=== PATIENT | female | born 1950 | race Caucasian/White ===

== ENCOUNTER 2021-11-01 20:43 | Outpatient (CLI) | payer MEDICARE, BC, SELFPAY | END 2021-11-01 20:44 | disposition home or self-care (01) | LOC: AMB 11-13 11:47 | PROVIDERS: PCP Family Medicine; Visit Provider Family Medicine | DX: R06.09 Other forms of dyspnea (principal); R42 Dizziness and giddiness | CPT/HCPCS: A0425; A0427 ==

== ENCOUNTER 2021-11-01 21:17 | Inpatient (IN) | payer MEDICARE, BC, SELFPAY ==
[2021-11-01] VITALS (11 sets, daily range): BP systolic 118–177; BP diastolic 67–111; PULSE 81–112; RESP 18–33; TEMP 36.9; O2SAT 95–98
[2021-11-01] MEDS: LORazepam 2 MG/ML inj 1 MG IV (21:32)
[2021-11-01] MEDS: NITROGLYCERIN 0.4 MG TAB.SUBL SUBLINGUAL (21:32)
--- NOTE | 2021-11-01 21:40 | CRLHL7_ITS ---
For Patients: As a result of the Century Cures Act, medical imaging exams and procedure reports are released immediately into your electronic medical record. You may view this report before your referring provider. If you have questions, please contact your health care provider. Indication: Shortness of breath Technique: Chest 1 view Comparison: July 01, 2013 Findings/Impression: Stable cardiac size. Low lung volumes. Diffuse perihilar opacities may reflect infection or edema. No large effusion. No pneumothorax. No acute osseous abnormality. Dictated by Myah Sinha MD @ 11/01/2021 10:52:29 PM (Electronically Signed)
--- NOTE | 2021-11-01 21:45 | ED.NURSE ---
Pt arrived via EMS talking on 6L nc, pt moved to ER bed using nebulizer, 3 minutes later pt started to cough and have panic attack stating she cant breathe with diaphoresis, oximetry decreased to low 80s, MD Carr to bedside, bipap started at 100% fio2, ekg completed, telemetry monitor applied, MD Carr verbal for nitro 0.4mg PO. Pt stating improvement in breathing post 5 minutes on bipap with oximetry increasing to upper 90s.
--- NOTE | 2021-11-01 21:45 | ED.GENADULT ---
HPI - General Adult General Chief complaint: Shortness of Breath/Dyspnea Stated complaint: RESPIRATORY DISTRESS Time Seen by Provider: 11/01/21 21:38 History of Present Illness HPI narrative: This 71-year-old female came in by ambulance because of shortness of breath. She received half of a DuoNeb before arriving here. She was showing oximetry at 92% on room air upon arrival. When shifting from the ambulance gurney to the bed in the room she became suddenly very short of breath and anxious. Her oximetry dip down into the mid 80s. She was very tight in her breathing. Related Data Home Medications Medication Instructions Recorded Confirmed aspirin 81 mg capsule 81 mg PO DAILY 11/01/21 11/01/21 cholecalciferol (vitamin D3) 50 50 mcg PO DAILY 11/01/21 11/01/21 mcg (2,000 unit) capsule ezetimibe 10 mg tablet mg 11/01/21 furosemide 20 mg tablet mg 11/01/21 nitroglycerin 0.4 mg sublingual mg 11/01/21 tablet ramipril 5 mg capsule mg 11/01/21 rosuvastatin 40 mg tablet mg 11/01/21 sertraline 100 mg tablet mg 11/01/21 verapamil 240 mg tablet,extended mg PO 11/01/21 release Allergies Allergy/AdvReac Type Severity Reaction Status Date / Time Sulfa (Sulfonamide Allergy Verified 11/01/21 22:18 Antibiotics) Review of Systems Status of ROS: Reports: 10 or more systems reviewed and unremarkable except as noted in History and below Narrative: Constitutional: No fevers, no weight gain or loss. Eyes: No discharge. No vision changes. HENT: No congestion, no sore throat, no ear pain. Cardiovascular: No palpitations. Respiratory: Severe shortness of breath. Gastrointestinal: No abdominal pain, no vomiting, no diarrhea. Genitourinary: No dysuria, no hematuria. Musculoskeletal: Normal range of motion. Skin: No rashes, no pruritis. Neurological: No dizziness, weakness, sensory change, speech change. Endo/Heme/Allergies: No bruising or bleeding. No polydipsia. Pysch: no suicidality, no anxiety, no insomnia. All other systems reviewed and are negative. Exam Narrative: Exam Narrative: Constitutional: Well-developed, well-nourished, no acute distress. HEENT: Normocephalic, atraumatic. Neck: Normal range of motion. Nontender. Supple. Heart: Regular. No murmurs. Tachycardia, rate around 120 beats per minute. Intact distal pulses. Lungs: Very little air movement on initial exam with use of accessory muscles. She was very anxious with her dyspnea. Abdomen: Normal bowel sounds. Nontender. No rebound tenderness. Genitalia: Deferred. Back: No midline tenderness. Normal range of motion. Extremities: Normal range of motion. No injury. Bilateral pedal edema. Skin: Intact. No rash. Warm. No erythema or pallor. Neurologic: No altered sensation. No weakness. Psychiatric: Very anxious with regard to her breathing. Nursing notes and vitals signs are reviewed. Const: Vital Signs, click to edit/add: Vital Signs - 24 hr 11/01/21 21:43 11/01/21 21:30 Temperature 98.5 F Pulse Rate [Left P ulse Oximeter] 111 H 112 H Respiratory Rate 26 H Blood Pressure [Le ft Upper Arm] 138/92 H 177/111 H Pulse Oximetry 96 96 Oxygen Delivery Me thod BiPAP BiPAP Fraction of Inspir ed Oxygen 80 Course Vital Signs Vital signs: Initial Vital Signs Pulse Rate 112 H 11/01/21 21:30 Blood Pressure 177/111 H 11/01/21 21:30 Blood Pressure Mean 133 11/01/21 21:30 Pulse Oximetry 96 11/01/21 21:30 Oxygen Delivery Method 11/01/21 21:30 Vital Signs Pulse Rate 112 H 11/01/21 21:30 Blood Pressure 177/111 H 11/01/21 21:30 Pulse Oximetry 96 11/01/21 21:30 Oxygen Delivery Method 11/01/21 21:30 Temperature 98.5 F 11/01/21 21:43 Pulse Rate 111 H 11/01/21 21:43 Respiratory Rate 26 H 11/01/21 21:43 Blood Pressure 138/92 H 11/01/21 21:43 Pulse Oximetry 96 11/01/21 21:43 Oxygen Delivery Method 11/01/21 21:43 Fraction of Inspired Oxygen 80 11/01/21 21:43 Medical Decision Making MDM Narrative Medical decision making narrative: This patient arrives by ambulance and is soon as she was placed in the room she became very short of breath. The patient became diaphoretic but did not have cyanosis. BiPAP was brought in rather quickly and applied. She also had an IV in place from her ambulance trip here. She received 1 mg of Ativan. BiPAP was set at 100% oxygen and before long her heart rate came down and her oximetry improved to 98%. She is breathing much better. Her initial blood pressure was elevated at around 180. She did receive a sublingual nitroglycerin 0.4 mg and repeat blood pressure had a systolic value around 140. Her symptoms appeared to be sign of flash pulmonary edema. She does show such findings on chest x-ray. Lab results returned with normal troponin. Her BNP is elevated to around 1100 and her D-dimer is elevated to 2.2. A CT scan of the chest with contrast is ordered. Her BiPAP oxygen was decreased from 100% down to 80% and then 50%. Finally it was at 30% before removing it in order to have the CT scan. I did discuss these matters with the hospitalist radio communications superintendent who will arrange for her admission to the hospital. Results of the CT scan are pending at this time. Lab Data Labs: Lab Results 11/01/21 11/01/21 11/01/21 Range/Units 21:40 21:40 21:40 WBC 8.69 (4.50-11.00) K/uL RBC 5.00 (4.00-5.20) m/uL Hgb 13.8 (12.0-16.0) gm/dL Hct 43.2 (33.0-51.0) % MCV 86 (80-100) fL MCH 28 (26-34) pg MCHC 32 (32-36) gm/dL RDW Coeff of Rene 13.7 (11.5-15.5) % Plt Count 163 (140-440) K/uL Neut % (Auto) 59.3 (42.0-72.0) % Lymph % (Auto) 34.3 (20-44) % [place] % (Auto) 5.1 (0.0-11.0) % Eos % (Auto) 1.0 (0.0-7.0) % Baso % (Auto) 0.2 (0.0-3.0) % Neut # (Auto) 5.15 (1.7-7.0) K/uL Lymph # (Auto) 2.98 H (0.90-2.90) K/uL [place] # (Auto) 0.40 (0.00-0.90) K/UL Eos # (Auto) 0.09 (0.00-0.50) K/uL Baso # (Auto) 0.02 (0.00-0.30) K/uL Abs Immat Gran (auto) 0.01 (0.00-0.30) K/uL D-Dimer Quant (PE/DVT) 2.21 H (0.00-0.50) ug/ml VBG pH (7.32-7.43) VBG pCO2 (40-50) mmHG VBG pO2 (25-47) mmHG VBG HCO3 (21-28) mmol/L Sodium 136 (135-149) mmol/L Potassium 3.9 (3.6-5.1) mmol/L Chloride 102 (96-114) mmol/L Carbon Dioxide 26 (20-32) mmol/L BUN 18 (7-30) mg/dL Creatinine 0.7 (0.5-1.5) mg/dL Estimated GFR 91 ml/min Glucose 148 H (60-115) mg/dL Calcium 9.0 (8.4-10.6) mg/dL NT-Pro-B Natriuret Pep 1140 H (0-125) PG/mL POC Troponin I (0.01-0.04) ng/ml 11/01/21 11/01/21 Range/Units 21:40 21:40 WBC (4.50-11.00) K/uL RBC (4.00-5.20) m/uL Hgb (12.0-16.0) gm/dL Hct (33.0-51.0) % MCV (80-100) fL MCH (26-34) pg MCHC (32-36) gm/dL RDW Coeff of Rene (11.5-15.5) % Plt Count (140-440) K/uL Neut % (Auto) (42.0-72.0) % Lymph % (Auto) (20-44) % [place] % (Auto) (0.0-11.0) % Eos % (Auto) (0.0-7.0) % Baso % (Auto) (0.0-3.0) % Neut # (Auto) (1.7-7.0) K/uL Lymph # (Auto) (0.90-2.90) K/uL [place] # (Auto) (0.00-0.90) K/UL Eos # (Auto) (0.00-0.50) K/uL Baso # (Auto) (0.00-0.30) K/uL Abs Immat Gran (auto) (0.00-0.30) K/uL D-Dimer Quant (PE/DVT) (0.00-0.50) ug/ml VBG pH 7.332 (7.32-7.43) VBG pCO2 52 H (40-50) mmHG VBG pO2 60.9 H (25-47) mmHG VBG HCO3 27 (21-28) mmol/L Sodium (135-149) mmol/L Potassium (3.6-5.1) mmol/L Chloride (96-114) mmol/L Carbon Dioxide (20-32) mmol/L BUN (7-30) mg/dL Creatinine (0.5-1.5) mg/dL Estimated GFR ml/min Glucose (60-115) mg/dL Calcium (8.4-10.6) mg/dL NT-Pro-B Natriuret Pep (0-125) PG/mL POC Troponin I 0.02 (0.01-0.04) ng/ml Imaging Data Chest x-ray: Radiologist's impression: Stable cardiac size. Low lung volumes. Diffuse perihilar opacities may reflect infection or edema. No large effusion. No pneumothorax. No acute osseous abnormality. ECG Data Attestation: I personally reviewed and interpreted this ECG as follows: Interpretation: Sinus tachycardia, rate 105 beats per minute. There are no specific ST or T-wave abnormalities. Critical Care Time Critical Care Time Critical Care Time: Yes Attestation: The patient required my highest level preparedness to intervene emergently and I personally spent this critical care time directly and personally managing the patient. This critical care time included: Obtaining a history; Examining the patient; Pulse oximetry; Ordering and reviewing of studies; Arranging urgent treatment with development of a management plan; Evaluation of patients response to treatment; Frequent reassessment discussions with other providers. This critical care time was performed to assess and manage the high probability of imminent life-threatening deterioration that could result in multiorgan failure. It was exclusive of separate billable procedures and treating other patients and teaching time. Total Critical Care Time in Minutes: 30 Discharge Plan Discharge Clinical Impression: Flash pulmonary edema Patient Disposition: Admitted As Inpatient Condition: Improved Prescriptions: No Action sertraline 100 mg tablet nitroglycerin 0.4 mg tablet, sublingual verapamil 240 mg tablet extended release PO furosemide 20 mg tablet ezetimibe 10 mg tablet rosuvastatin 40 mg tablet aspirin 81 mg capsule 81 mg PO DAILY cholecalciferol (vitamin D3) 50 mcg (2,000 unit) capsule 50 mcg PO DAILY ramipril 5 mg capsule Follow Up/Referrals: Lorin Parson MD [Primary Care Provider] -
[2021-11-01 21:47] LABS: HCO3 VBG 27 mmol/L (21-28); PCO2 VBG 52 mmHG (40-50); PO2 VBG 60.9 mmHG (25-47); pH VBG 7.332 (7.32-7.43)
[2021-11-01 21:51] LABS: Basophils Absolute Auto 0.02 K/uL (0.00-0.30); Basophils Percent Auto 0.2 % (0.0-3.0); Eosinophils Absolute Auto 0.09 K/uL (0.00-0.50); Hematocrit 43.2 % (33.0-51.0); Hemoglobin* 13.8 gm/dL (12.0-16.0); Immature Granulocytes Abs Auto 0.01 K/uL (0.00-0.30); Lymphocytes Absolute Auto 2.98 K/uL (0.90-2.90); Lymphocytes Percent Auto 34.3 % (20-44); Mean Corpuscular HGB Conc 32 gm/dL (32-36); Mean Corpuscular Hemoglobin 28 pg (26-34); Mean Corpuscular Volume 86 fL (80-100); Monocytes Percent Auto 5.1 % (0.0-11.0); Neutrophils Absolute Auto 5.15 K/uL (1.7-7.0); Neutrophils Percent Auto 59.3 % (42.0-72.0); Platelet Count* 163 K/uL (140-440); RDW Coefficient of Variation % 13.7 % (11.5-15.5); White Blood Count* 8.69 K/uL (4.50-11.00)
[2021-11-01 22:17] LABS: D Dimer Quantitative* 2.21 ug/ml (0.00-0.50)
[2021-11-01 22:18] LABS: Troponin, Point-of-Care* 0.02 ng/ml (0.01-0.04)
[2021-11-01 22:20] LABS: Slide Review Reflex No
[2021-11-01 22:21] LABS: Chloride* 102 mmol/L (96-114); Sodium* 136 mmol/L (135-149)
[2021-11-01 22:22] LABS: Potassium* 3.9 mmol/L (3.6-5.1)
[2021-11-01 22:24] LABS: Creatinine* 0.7 mg/dL (0.5-1.5); Estimated Glomerular Filt Rate 91 ml/min
[2021-11-01 22:25] LABS: Blood Urea Nitrogen* 18 mg/dL (7-30); Carbon Dioxide* 26 mmol/L (20-32); Glucose* 148 mg/dL (60-115)
--- NOTE | 2021-11-01 22:26 | CRLHL7_ITS ---
For Patients: As a result of the 21st Century Cures Act, medical imaging exams and procedure reports are released immediately into your electronic medical record. You may view this report before your referring provider. If you have questions, please contact your health care provider. INDICATION: Shortness of breath. Elevated D-dimer. TECHNIQUE: CT chest PE was acquired with 99 cc Isovue 370 IV contrast. COMPARISON: None. FINDINGS: Heart and vasculature: No cardiomegaly, no pericardial effusion. Atherosclerotic coronary artery calcifications. Within limitations of motion artifact, no definite evidence of acute pulmonary embolus. Evaluation of bilateral lower lobe subsegmental pulmonary arteries is significantly limited. Lungs and pleura: Diffuse peribronchial ground-glass opacities in the upper lobes, superimposed upon septal thickening. There is also significant septal thickening in the bilateral lower lobes. There are small bilateral pleural effusions, right greater left, with associated compressive atelectasis. Patchy subpleural ground-glass opacities in the left lower lobe. Thyroid and lower neck: Subcentimeter thyroid nodules are noted. Mediastinum/seb: Multiple mildly enlarged mediastinal lymph nodes, favored to be reactive. Chest wall: No axillary lymphadenopathy. Skin thickening overlying the right breast. Upper abdomen: No acute abnormality. Bones: Multilevel degenerative changes of the spine. No suspicious/aggressive focal osseous lesion. IMPRESSION: 1. Within limitations of motion artifact, no definite evidence of acute pulmonary embolus. 2. Diffuse peribronchial ground-glass opacities superimposed upon septal thickening. Findings are favored to reflect pulmonary edema. 3. Patchy subpleural ground-glass opacities in the left lower lobe, may reflect superimposed infectious process. 4. Small bilateral pleural effusions, right greater than left, with associated compressive atelectasis. 5. Multiple mildly enlarged mediastinal lymph nodes, likely reactive. 6. Skin thickening overlying the right breast is nonspecific, may reflect cellulitis versus component of inflammatory neoplasm. Follow-up mammogram is recommended. Please note that all CT scans at this facility use dose modulation, iterative reconstruction, and/or weight-based dosing when appropriate to reduce radiation dose to as low as reasonably achievable. Dictated by Jeremias Dobson MD @ 11/02/2021 12:26:22 AM (Electronically Signed)
[2021-11-01 22:34] LABS: NT Pro B Type NatriureticPept* 1140 PG/mL (0-125)
--- NOTE | 2021-11-01 22:45 | ED.NURSE ---
bipap removed, pt placed on 10L oxymask maintaining 96% oximetry - pt transported to CT and back stating she feels much better and maintaining oxygenation.
[2021-11-01 23:13] LABS: SARS PCR* Negative SARS-CoV-2 (Negative)
--- NOTE | 2021-11-01 23:29 | W.PC.EDHO ---
Primary Language: Preferred Language: Orientation Status: [x] Alert & Oriented [] Slight Confusion [] Known Dx Dementia Transfers By: [] Assist of 1 [x] Assist of 2 [] Lift Active Medications Discontinued Medications Generic Name Dose Route Start Last Admin Trade Name Ita PRN Reason Stop Dose Admin Lorazepam 1 mg 11/01/21 21:40 11/01/21 21:32 Lorazepam 2 Mg/Ml Inj IV 11/01/21 21:41 1 mg ONCE ONE Administration Nitroglycerin 0.4 mg 11/01/21 21:40 11/01/21 21:32 Nitroglycerin 0.4 Mg Tab.Subl SUBLINGUAL 11/01/21 21:41 0.4 mg ONCE ONE Administration Description of Symptoms ED Triage Present Problem this evening pt had vertigo, went to lay down and Description got nauseated and trouble breathing, called ems, pt got duoned on ems route. ED Triage Date of Onset of 11/01/21 Symptoms Female History Patient Oxygen Administration Pulse Oximetry 96 Pulse Oximetry 96 Oxygen Delivery Method BiPAP Oxygen Delivery Method BiPAP Fraction of Inspired Oxygen 80
--- NOTE | 2021-11-01 23:30 | P.IMHP_ITS ---
Hospitalist- H&P: HPI History of Present Illness Time Seen by Provider: 23:30 Date Seen: 11/02/21 Chief complaint: RESPIRATORY DISTRESS Narrative: Ivonne Collins is a 71 year old female who presented to the ED by ambulance for acute dyspnea, accompanied by productive cough. Patient notes that she started having mild URI symptoms about 3 days ago with feeling ?congested?, intermittent wheezing, and coughing. Today, her symptoms included mild vertigo, followed by fairly severe coughing and dyspnea. She was able to cough up some phlegm without relief; no hemoptysis. She tried her albuterol inhaler at home, which was not helpful. called the ambulance given patient's shortness of breath. Upon arrival, patient was dyspneic and hypoxic. ER Course and Findings: - immediately placed of on BiPAP upon arrival, given a Duoneb and Nitro with relief. Transitioned quickly to OxyMask from BiPap. - CXR performed, revealing low lung volumes with diffuse perihilar opacities - D-dimer elvated, CO2 mildly elevated, normal pH - chest CT with contrast revealed no PE, GGO that likely represent pulmonary edema, GGO in LLL that could reflect superimposed infectious process, small bilateral pleural effusions When I see patient, she is markedly improved. She is tolerating OxyMask well. Past medical history significant for: - CAD: [place] in the year 1999, stents placed . 10/2020 had an abnormal dobutamine stress echo; at that time underwent PCTA with RCA revascularization, completed cardiac rehab earlier this year. Follows with Dr. Mayen of [facility] - breast cancer, right, 2013: Treated with lumpectomy, radiation, course of le jose - ZACHARY on CPAP - chronic intermittent dyspnea with occasional wheezing: normal PFTs with [facility] in the past - osteoarthritis of knee Family history of hypertension, coronary artery disease, diabetes, breast cancer. Had COVID in fall of 2020, has received 4 vaccines as well. Quit smoking in 1979. ETOH use socially (1-2 drinks a few nights/week). No history of withdrawal. 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 She has two adult sons, neither lives locally. Deisi would be medical decision maker if needed. Review of Systems Status of ROS: Reports: 10 or more systems reviewed and unremarkable except as noted in History and below Narrative: Weight has been stable. No skin concerns. No GERD, no concerns. No headache. PFSH [facility], [facility] Medical History (Updated 11/02/21 @ 00:15 by Olivia Joseph MD) Breast cancer Chronic diastolic heart failure Depression Essential hypertension Hyperlipidemia Ischemic heart disease, chronic Mitral regurgitation Mitral stenosis ZACHARY on CPAP Osteoarthritis Surgical History (Updated 11/02/21 @ 00:15 by Olivia Joseph MD) History of lumpectomy of right breast Stented coronary artery Meds Home Medications and Allergies Home Medications Medication Instructions Recorded Confirmed Type aspirin 81 mg capsule 81 mg PO DAILY 11/01/21 11/01/21 History cholecalciferol (vitamin D3) 50 50 mcg PO DAILY 11/01/21 11/01/21 History mcg (2,000 unit) capsule ezetimibe 10 mg tablet 10 mg PO HS 11/01/21 11/01/21 History furosemide 20 mg tablet 20 mg PO DAILY 11/01/21 11/01/21 History nitroglycerin 0.4 mg sublingual 0.4 mg sublingual Q5M PRN 11/01/21 11/01/21 History tablet ramipril 5 mg capsule 10 mg PO DAILY 11/01/21 11/01/21 History rosuvastatin 40 mg tablet 40 mg PO HS 11/01/21 11/01/21 History sertraline 100 mg tablet 100 mg PO HS 11/01/21 11/01/21 History verapamil 240 mg tablet,extended 240 mg PO DAILY 11/01/21 11/01/21 History release Home Medication Comments: Confirmed above list with patient. She has not taken her nitro in years. She did complete a course of Plavix after stent placement in 2020. Allergies Allergy/AdvReac Type Severity Reaction Status Date / Time Sulfa (Sulfonamide Allergy Verified 11/01/21 22:18 Antibiotics) Exam Narrative: Exam Narrative: GEN: Alert and oriented, speaking in full sentences and resting comfortably in hospital bed, wearing OxyMask HEENT: Normal external ears, EOMIs bilaterally, no scleral icterus CV: RRR, heart sounds limited by background noise, no concerning murmurs appreciated on limited exam R: Wheezing throughout bilateral lung babin at apices. Fine crackles bilateral bases Ext: wwp, 1+ pitting edema in feet and ankles bilaterally Skin: No concerning skin lesions or rashes on exposed skin Neuro: Nonfocal, no resting tremor, gait not observed Psych: Appropriate Const: Vital Signs, click to edit/add: Vital Signs - 24 hr 11/01/21 21:43 11/01/21 21:30 Temperature 98.5 F Pulse Rate [Left P ulse Oximeter] 111 H 112 H Respiratory Rate 26 H Blood Pressure [Le ft Upper Arm] 138/92 H 177/111 H Pulse Oximetry 96 96 Oxygen Delivery Me thod BiPAP BiPAP Fraction of Inspir ed Oxygen 80 Hospitalist - H&P: Result Labs Labs: Short CBC 11/01/21 Range/Units 21:40 WBC 8.69 (4.50-11.00) K/uL Hgb 13.8 (12.0-16.0) gm/dL Hct 43.2 (33.0-51.0) % Plt Count 163 (140-440) K/uL BMP 11/01/21 21:40 Sodium 136 Potassium 3.9 Chloride 102 Carbon Dioxide 26 BUN 18 Creatinine 0.7 Glucose 148 H Calcium 9.0 Assessment and Plan Assessment and plan (1) Mitral regurgitation: Status: Acute (2) Elevated d-dimer: Status: Acute (3) Acute respiratory failure with hypoxia: Status: Acute (4) Dyspnea: Status: Acute Plan 71-year-old female with acute hypoxic respiratory failure: 1. Acute hypoxic respiratory failure: Likely multifactorial. Patient has known mitral valve disease and had acute on chronic dyspnea. Continue supplemental oxygen. - repeat echocardiogram to assess cardiac function. Continue home medications per outpatient [facility]. - given evidence of fluid overload, will treat with IV Lasix and assess fluid balance closely - wheezing: Ivonne has had normal PFTs per chart review, but giiven significant symptomatology will give 1 dose of Solu-Medrol overnight. Reassess tomorrow regarding the need to continue steroids - possible infectious process: empirically cover with ceftriaxone and azithromycin given degree of illness. 2. CAD: Follow troponins, initial troponin negative in the emergency room. Will monitor on telemetry. 3. Lovenox for prophylaxis. 4. Patient requests full code status. She has no desire to live on a machine long-term; is aware of this.
[2021-11-02] VITALS (12 sets, daily range): BP systolic 115–145; BP diastolic 55–88; PULSE 83–101; RESP 18–22; TEMP 36.4–37.1; O2SAT 92–98; BMI 41.3
--- NOTE | 2021-11-02 01:10 | ED.NURSE ---
report to ms RN, pt transferred to room 245, MS RN at bedside on arrival. Pt denied any further dyspnea post initial episode on arrival through ER visit.
[2021-11-02] MEDS: FUROSEMIDE 10 MG/ML inj 20 MG IVP ×2 (01:23→08:42)
[2021-11-02] MEDS: METHYLPREDNISOLONE SOD SUCC 62.5 MG/ML (125) 125 MG IVP (01:23)
[2021-11-02] MEDS: ENOXAPARIN 40 MG/0.4 ML INJ SUBCUT ×2 (01:23→21:20)
[2021-11-02] MEDS: cefTRIAXone 1 GM in 0.9 % SODIUM CHLORIDE Mini-bag 100 ML IVPB (01:23)
[2021-11-02] MEDS: AZITHROMYCIN 500 MG in 0.9 % SODIUM CHLORIDE 250 ml 250 ML 255 MG IVPB (01:46)
--- NOTE | 2021-11-02 05:43 | PC.NURSE ---
Shift 7p-7a: Received pt. from ER at 0030. Pt. AOx4, very pleasant, following commands, VSS on 5L oxymask. Pt. uses CPAP at night but did not bring with her tonight. Pt. received IV antibiotics, lasix, and solu-medrol due to possible infectious process in lungs shown on CT scan. Pt. ambulated independently to toilet, voiding well. Pt. experiencing intermittent non-productive cough.
[2021-11-02] MEDS: POTASSIUM BICARB 25 MEQ EFFERVESCENT TAB PO (08:40)
[2021-11-02] MEDS: ASPIRIN 81 MG TABLET EC PO (10:03)
--- NOTE | 2021-11-02 13:28 | PM.IMPN1 ---
Progress Note: A&P Assessment and plan (1) Heart failure with preserved ejection fraction: Problem details: Echocardiogram 11/02/2021 shows ejection fraction of 60 65% with normal wall thickness and normal global systolic function Status: Acute Assessment and Plan: Based on current echo heart failure appears to be primarily due to mitral regurgitation manifested as pulmonary edema. She has responded nicely to diuresis. Echo finding suggest a need for relatively urgent cardiology re-evaluation regarding medical versus surgical management of mitral valve disease. Will continue diuresis to see if she can be weaned off of oxygen and functional enough to follow as an outpatient. (2) Mitral regurgitation: Problem details: Echocardiogram 11/02/2021 shows severe mitral regurgitation Status: Acute (3) Mitral stenosis: Status: Acute Plan Continue in hospital for IV furosemide diuresis. If able to wean off oxygen and improved functional status urgent outpatient cardiology evaluation Time Spent With Patient Total time spent: Total time spent today is 40 minutes, 30 minutes in coordination of care and discussing with patient and other providers management of heart failure Subjective Date Seen: 11/02/21 Interval history: 71-year-old female seen in followup of hospitalization for respiratory distress. Patient has known heart failure secondary to mitral valve disease. This appears to be predominantly mitral valve regurgitation and mitral valve stenosis due to bulky mitral annular calcification. Notes from her rn house supervisor Dr. Mayen, [facility], from 05/09/2019 to indicate his concerned that her dyspnea is primarily due to mitral valve disease. She had a stress echocardiogram showing mean mitral diastolic gradient of 6 mmHg increasing to 18 mmHg at peak stress. Right ventricular systolic pressure was 48 mmHg increasing to 78 mmHg with stress. This was felt to be moderate mitral regurgitation. On admission she was administered furosemide for 20 mg IV and she reports overnight her breathing has gotten quite a bit better. She was initially on BiPAP and then on a OxyMask and now is on nasal cannula at 2.5 liters/minute maintaining her O2 sats in the low 90s. She reports no chest pain. She has had no fever. She has not had a cough until onset of her shortness of breath yesterday. She had a cough that produced some thick sputum but she was not able to get it out. Exam Narrative: Exam Narrative: She is alert and appears in no obvious distress. She is breathing comfortably on 2.5 L per nasal cannula. Respirations with a few basilar crackles. She has diminished breath sounds in her lung bases. No obvious consolidation. No wheezing. Cardiovascular : S1, S2, 1/6 systolic ejection murmur. No gallop or rub. Abdomen: Bowel sounds active. Abdomen is soft without tenderness. Extremities with 2+ edema bilaterally. Const: Vital Signs, click to edit/add: Vital Signs - 24 hr 11/01/21 21:43 11/01/21 21:30 11/02/21 00:54 Temperature 98.5 F Pulse Rate Pulse Rate [Left P ulse Oximeter] 111 H 112 H Pulse Rate [Right Radial] Respiratory Rate 26 H 22 Blood Pressure [Le ft Arm] Blood Pressure [Le ft Upper Arm] 138/92 H 177/111 H Pulse Oximetry 96 96 94 Oxygen Delivery Me thod BiPAP BiPAP OxyMask Oxygen Flow Rate 4 Fraction of Inspir ed Oxygen 80 11/02/21 01:03 11/02/21 01:03 11/01/21 21:40 Temperature 98.3 F Pulse Rate Pulse Rate [Left P ulse Oximeter] 112 H Pulse Rate [Right Radial] 84 Respiratory Rate 22 22 33 H Blood Pressure [Le ft Arm] 115/57 L Blood Pressure [Le ft Upper Arm] 130/88 Pulse Oximetry 94 94 96 Oxygen Delivery Me thod OxyMask OxyMask BiPAP Oxygen Flow Rate 4 5 Fraction of Inspir ed Oxygen 100 11/01/21 21:55 11/01/21 22:05 11/01/21 22:15 Temperature Pulse Rate Pulse Rate [Left P ulse Oximeter] 103 H 112 H 88 Pulse Rate [Right Radial] Respiratory Rate 27 H 24 22 Blood Pressure [Le ft Arm] Blood Pressure [Le ft Upper Arm] 129/78 131/81 126/73 Pulse Oximetry 96 96 95 Oxygen Delivery Me thod BiPAP BiPAP BiPAP Oxygen Flow Rate Fraction of Inspir ed Oxygen 80 70 50 11/01/21 22:25 11/01/21 22:40 11/01/21 23:20 Temperature Pulse Rate Pulse Rate [Left P ulse Oximeter] 83 84 81 Pulse Rate [Right Radial] Respiratory Rate 22 22 18 Blood Pressure [Le ft Arm] Blood Pressure [Le ft Upper Arm] 121/78 118/72 122/74 Pulse Oximetry 95 97 97 Oxygen Delivery Me thod BiPAP BiPAP OxyMask Oxygen Flow Rate 10 Fraction of Inspir ed Oxygen 50 50 11/01/21 23:50 11/02/21 00:20 11/01/21 21:20 Temperature Pulse Rate Pulse Rate [Left P ulse Oximeter] 83 84 Pulse Rate [Right Radial] Respiratory Rate 18 18 Blood Pressure [Le ft Arm] Blood Pressure [Le ft Upper Arm] 124/67 124/80 Pulse Oximetry 98 98 97 Oxygen Delivery Me thod Room Air Room Air BiPAP Oxygen Flow Rate 5 4 Fraction of Inspir ed Oxygen 100 11/02/21 00:44 11/02/21 02:47 11/02/21 07:30 Temperature 98.3 F 98.7 F Pulse Rate 83 Pulse Rate [Left P ulse Oximeter] Pulse Rate [Right Radial] 87 95 Respiratory Rate 20 18 Blood Pressure [Le ft Arm] 116/55 L 141/88 H Blood Pressure [Le ft Upper Arm] Pulse Oximetry 93 93 Oxygen Delivery Me thod OxyMask Room Air Oxygen Flow Rate 4 Fraction of Inspir ed Oxygen Documenting provider has reviewed patient's vital signs: yes Labs Labs: Laboratory Results - last 24 hr 11/01/21 11/01/21 11/01/21 21:40 21:40 21:40 WBC 8.69 RBC 5.00 Hgb 13.8 Hct 43.2 MCV 86 MCH 28 MCHC 32 RDW Coeff of Rene 13.7 Plt Count 163 Neut % (Auto) 59.3 Lymph % (Auto) 34.3 [place] % (Auto) 5.1 Eos % (Auto) 1.0 Baso % (Auto) 0.2 Neut # (Auto) 5.15 Lymph # (Auto) 2.98 H [place] # (Auto) 0.40 Eos # (Auto) 0.09 Baso # (Auto) 0.02 Abs Immat Gran (auto) 0.01 D-Dimer Quant (PE/DVT) 2.21 H VBG pH VBG pCO2 VBG pO2 VBG HCO3 Sodium 136 Potassium 3.9 Chloride 102 Carbon Dioxide 26 BUN 18 Creatinine 0.7 Estimated GFR 91 Glucose 148 H Calcium 9.0 NT-Pro-B Natriuret Pep 1140 H SARS-CoV-2 (PCR) POC Troponin I 11/01/21 11/01/21 11/01/21 21:40 21:40 21:41 WBC RBC Hgb Hct MCV MCH MCHC RDW Coeff of Rene Plt Count Neut % (Auto) Lymph % (Auto) [place] % (Auto) Eos % (Auto) Baso % (Auto) Neut # (Auto) Lymph # (Auto) [place] # (Auto) Eos # (Auto) Baso # (Auto) Abs Immat Gran (auto) D-Dimer Quant (PE/DVT) VBG pH 7.332 VBG pCO2 52 H VBG pO2 60.9 H VBG HCO3 27 Sodium Potassium Chloride Carbon Dioxide BUN Creatinine Estimated GFR Glucose Calcium NT-Pro-B Natriuret Pep SARS-CoV-2 (PCR) Negative SARS-CoV-2 POC Troponin I 0.02
[2021-11-02 14:02] LABS: Troponin I* 0.02 ng/mL (0.01-0.04)
[2021-11-02] MEDS: POTASSIUM BICARB 25 MEQ EFFERVESCENT TAB 50 MEQ PO (15:23)
[2021-11-02] MEDS: FUROSEMIDE 10 MG/ML inj 40 MG IVP (15:24)
--- NOTE | 2021-11-02 18:55 | PC.NURSE ---
shift note:vss stable. pt afeb. pt up indept in room w/o sob. pt weaned to 2.5L pnc O2 with sats maintaining @ 92-95%. LS with divya maradiaga. Pt denies c.p or pressure. tele monitor reading nsr.
[2021-11-02] MEDS: EZETIMIBE 10 MG TABLET PO (21:21)
[2021-11-02] MEDS: ROSUVASTATIN CALCIUM 10 MG TABLET 40 MG PO (21:21)
[2021-11-02] MEDS: VERAPAMIL HCL 240 MG ER TABLET PO (21:21)
[2021-11-02] MEDS: RAMIPRIL 2.5 MG 10 MG PO (21:22)
[2021-11-02] MEDS: SERTRALINE 100 MG TABLET PO (22:41)
[2021-11-03] VITALS (7 sets, daily range): BP systolic 104–131; BP diastolic 53–73; PULSE 69–74; RESP 18; TEMP 36.4–36.6; O2SAT 91–97
--- NOTE | 2021-11-03 05:00 | PC.NURSE ---
Shift note: The pt has been pleasant and cooperative. She has been denying chest pain; she reported slight short of breath with exertion. The pt has been on 2.5 L of oxygen via NC when she is a wake ; when she was sleeping she was using CPAP with 4L of oxygen bleeding into it with Spo2 in low 90s; due to air leak in the CPAP hose, SPo2 was decreased to upper 80s occasional for a brief moment. The pt has been independent in the room. She has been resting well without any distress. Tele has been showing NSR.
[2021-11-03 06:57] LABS: Basophils Absolute Auto 0.01 K/uL (0.00-0.30); Basophils Percent Auto 0.1 % (0.0-3.0); Hemoglobin* 12.4 gm/dL (12.0-16.0); Immature Granulocytes Abs Auto 0.02 K/uL (0.00-0.30); Lymphocytes Absolute Auto 2.09 K/uL (0.90-2.90); Lymphocytes Percent Auto 25.1 % (20-44); Mean Corpuscular HGB Conc 32 gm/dL (32-36); Mean Corpuscular Hemoglobin 27 pg (26-34); Mean Corpuscular Volume 86 fL (80-100); Monocytes Percent Auto 7.2 % (0.0-11.0); Neutrophils Absolute Auto 5.62 K/uL (1.7-7.0); Neutrophils Percent Auto 67.4 % (42.0-72.0); Platelet Count* 182 K/uL (140-440); RDW Coefficient of Variation % 13.9 % (11.5-15.5); Red Blood Count 4.55 m/uL (4.00-5.20); White Blood Count* 8.34 K/uL (4.50-11.00)
[2021-11-03 07:04] LABS: Slide Review Reflex No
[2021-11-03 07:08] LABS: Chloride* 98 mmol/L (96-114); Potassium* 3.5 mmol/L (3.6-5.1); Sodium* 135 mmol/L (135-149)
[2021-11-03 07:11] LABS: Carbon Dioxide* 31 mmol/L (20-32); Creatinine* 0.7 mg/dL (0.5-1.5); Est. Creatinine Clearance* 39.63; Estimated Glomerular Filt Rate 91 ml/min
[2021-11-03 07:12] LABS: Blood Urea Nitrogen* 20 mg/dL (7-30); Calcium* 8.8 mg/dL (8.4-10.6); Glucose* 127 mg/dL (60-115)
[2021-11-03] MEDS: ASPIRIN 81 MG TABLET EC PO (08:43)
[2021-11-03] MEDS: FUROSEMIDE 40 MG TABLET PO (08:43)
[2021-11-03] MEDS: POTASSIUM CHLORIDE 10 MEQ CAPSULE ER 20 MEQ PO ×2 (08:43→09:53)
--- NOTE | 2021-11-03 08:56 | CRLHL7_ITS ---
For Patients: As a result of the Century Cures Act, medical imaging exams and procedure reports are released immediately into your electronic medical record. You may view this report before your referring provider. If you have questions, please contact your health care provider. INDICATION: pulmonary edema, CHF HISTORY: Pulmonary edema, CHF. COMPARISON: Chest 1 view, 11/01/2021. CT pulmonary angiogram, 11/01/2021. TECHNIQUE: Chest, 2 views. FINDINGS: Cardiac enlargement. Pulmonary vasculature is more distinct on the current exam when compared with 11/01/2021. Perihilar infiltrates have significantly improved. There is blunting of the lateral/posterior costophrenic sulci, compatible with small residual pleural effusions. There is no pneumothorax. There is no deep sulcus sign. Central airway is normal. IMPRESSION: 1. Interval improvement in interstitial pulmonary edema. 2. Small, bilateral pleural effusions persist. Dictated by Rigo Goel MD @ 11/03/2021 10:14:28 AM Dictated by: Rigo Goel MD @ 11/03/2021 10:14:33 (Electronically Signed)
[2021-11-03 09:14] LABS: HCO3 VBG 31 mmol/L (21-28); PCO2 VBG 48 mmHG (40-50); PO2 VBG 33.8 mmHG (25-47); pH VBG 7.416 (7.32-7.43)
[2021-11-03 09:35] LABS: NT Pro B Type NatriureticPept* 1860 PG/mL (0-125)
--- NOTE | 2021-11-03 10:53 | RESP.RT ---
Notified by charge nurse that overnight they had an issue bleeding in O2 into the patient's CPAP machine. The machine has a heated hose and the night nurse taped an O2 bleed into where the heated hose connects. This is not correct and the nurse had also taped over the exhalation port on the CPAP mask. I reviewed with the charge nurse that this cannot happen, and will review with the charge nurse tonight how to bleed in the O2 at the mask, so that they can review with the nurse. The CPAP is now set up correctly with the O2 bleed in placed at the mask. It is now safe for the patient to continue to use.
--- NOTE | 2021-11-03 11:17 | PM.IMPN1 ---
Progress Note: A&P Assessment and plan (1) Heart failure with preserved ejection fraction: Problem details: Echocardiogram 11/02/2021 shows ejection fraction of 60 65% with normal wall thickness and normal global systolic function Status: Acute Assessment and Plan: Making great progress. We increased the dose of her potassium replacement given the increased dose of her Lasix and her decreased potassium today. Her BNP has increased however the chest x-ray evidence of interstitial edema has improved. I would like to give her 24 more hours CV regular off oxygen and returned home with no oxygen however this may not ultimately be possible. We can qualify her in the morning if needed. Ultimately she needs a valve replacement. (2) Mitral regurgitation: Problem details: Echocardiogram 11/02/2021 shows severe mitral regurgitation Status: Acute Assessment and Plan: We will help her align a appointment for next week with her matchbook assembler. (3) Acute respiratory failure with hypoxia: Status: Acute Assessment and Plan: Currently still on oxygen. 1 L. we will continue with current doses of oral furosemide. Pulmonary rehab maneuvers are important. Her weight is down. Her chest x-rays improved. Actual be able to go home tomorrow. Subjective Date Seen: 11/03/21 Interval history: Daily Progress Note - Hospital Medicine Day #: 2 CC: CHF exacerbation, severe mitral regurgitation, hypokalemia OVERNIGHT UPDATES FROM STAFF & MED, LAB, IMAGING UPDATES Definitely feels as if she is improving. She had some mild hypoxia overnight and was up to 4 L bleed in on her typical CPAP settings. Currently during rounds this morning she is on 1 L per nasal cannula. She has yet to ambulate outside her room. But she has been independent to the bathroom. She continues to have some chronic edema in her ankles. She does not report this is better or worse than usual. Blood pressure 120/73, heart rate 69, respirations 18, 1 L in the mid 90s for oxygen support. CBC is unremarkable D- dimer was elevated at 2.2 on admission Her blood gases stable, I am happy to see her CO2 has decreased into the normal range. Her pH is normal. Potassium is dropped a little to 3.5 from 3.9 yesterday. Normal renal function. Her BNP is up to 1800 from 1100. Chest x-ray shows interval improvement in her interstitial pulmonary edema, persistent small bilateral effusions. Weight is down 1 kg. Med review: From home we increased her Lasix to 40 mg q.a.m from 20 mg., I will be adding an increased dose of potassium as potassium was little low this morning Review of Systems: See subjective Cardiac: No new chest pain/pressure/palpitations. Respiratory: Dyspnea improving GI: No abdominal bloating Objective: Alert. Able to carry on a conversation without becoming dyspneic. Vitals: see above Lungs: Clear. No significant crackles or wheezes. Cardiac: S1S2. No significant harsh murmurs. I was actually surprise knowing her degree of mitral regurg. Extremities, 1 to 2+ edema. Patient reports this is not new. Disposition/Potential discharge - Likely to return to previous living situation. Total time is 35 minutes with greater than 50% spent in counseling and coordination of care. Exam Const: Vital Signs, click to edit/add: Vital Signs - 24 hr 11/02/21 15:00 11/02/21 15:02 11/02/21 19:45 Temperature 98.7 F 97.6 F Pulse Rate 95 Pulse Rate [Right Radial] 85 84 Respiratory Rate 18 18 Blood Pressure [Le ft Arm] 138/72 145/79 H Pulse Oximetry 95 94 Oxygen Delivery Me thod Room Air Room Air Oxygen Flow Rate 2.5 11/02/21 23:20 11/02/21 23:20 11/03/21 02:12 Temperature 97.6 F Pulse Rate 71 Pulse Rate [Right Radial] 83 83 Respiratory Rate 18 18 Blood Pressure [Le ft Arm] 132/75 Pulse Oximetry 94 Oxygen Delivery Me thod CPAP Oxygen Flow Rate 2 11/03/21 03:00 11/03/21 07:00 11/03/21 07:00 Temperature 97.8 F 97.8 F Pulse Rate Pulse Rate [Right Radial] 73 73 73 Respiratory Rate 18 18 18 Blood Pressure [Le ft Arm] 104/53 L 121/73 Pulse Oximetry 95 97 Oxygen Delivery Me thod CPAP Nasal Cannula Oxygen Flow Rate 4 1 11/03/21 11:02 Temperature Pulse Rate 69 Pulse Rate [Right Radial] Respiratory Rate Blood Pressure [Le ft Arm] Pulse Oximetry Oxygen Delivery Me thod Oxygen Flow Rate Labs Labs: Laboratory Results - last 24 hr 11/01/21 11/03/21 11/03/21 21:40 06:14 06:14 WBC 8.34 RBC 4.55 Hgb 12.4 Hct 39.0 MCV 86 MCH 27 MCHC 32 RDW Coeff of Rene 13.9 Plt Count 182 Neut % (Auto) 67.4 Lymph % (Auto) 25.1 [place] % (Auto) 7.2 Eos % (Auto) 0.0 Baso % (Auto) 0.1 Neut # (Auto) 5.62 Lymph # (Auto) 2.09 [place] # (Auto) 0.60 Eos # (Auto) 0.00 Baso # (Auto) 0.01 Abs Immat Gran (auto) 0.02 VBG pH VBG pCO2 VBG pO2 VBG HCO3 Sodium 135 Potassium 3.5 L Chloride 98 Carbon Dioxide 31 BUN 20 Creatinine 0.7 Estimated Creat Clear 39.63 Estimated GFR 91 Glucose 127 H Calcium 8.8 Troponin I 0.02 NT-Pro-B Natriuret Pep 11/03/21 11/03/21 08:57 09:07 WBC RBC Hgb Hct MCV MCH MCHC RDW Coeff of Rene Plt Count Neut % (Auto) Lymph % (Auto) [place] % (Auto) Eos % (Auto) Baso % (Auto) Neut # (Auto) Lymph # (Auto) [place] # (Auto) Eos # (Auto) Baso # (Auto) Abs Immat Gran (auto) VBG pH 7.416 VBG pCO2 48 VBG pO2 33.8 VBG HCO3 31 H Sodium Potassium Chloride Carbon Dioxide BUN Creatinine Estimated Creat Clear Estimated GFR Glucose Calcium Troponin I NT-Pro-B Natriuret Pep 1860 H
[2021-11-03 12:25] LABS: Troponin I* 0.02 ng/mL (0.01-0.04)
--- NOTE | 2021-11-03 19:26 | PC.NURSE ---
07- shift note: pt pleasant and cooperative. No c/o chest pain. Indep in room. Walked halls x 2 on RA, lowest sat was 87%. Has been on RA since 1100, sats 90-95%.Pitting edema to LE. Tele = NSR. visiting with pt. ?
[2021-11-03] MEDS: ENOXAPARIN 40 MG/0.4 ML INJ SUBCUT (21:20)
[2021-11-03] MEDS: SERTRALINE 100 MG TABLET PO (21:21)
[2021-11-03] MEDS: EZETIMIBE 10 MG TABLET PO (21:21)
[2021-11-03] MEDS: RAMIPRIL 2.5 MG 10 MG PO (21:21)
[2021-11-03] MEDS: ROSUVASTATIN CALCIUM 10 MG TABLET 40 MG PO (21:22)
[2021-11-03] MEDS: VERAPAMIL HCL 240 MG ER TABLET PO (21:22)
--- NOTE | 2021-11-03 23:36 | PC.NURSE ---
Shift Note [id number]. Patient was alert and oriented x4. VSS. Remained in NSR on tele. Lung sounds clear bilaterally. SpO2 remained above 90% on room air during waking hours, when patient sleeping 3L was required to keep SpO2 greater than 90% along with CPAP. She was independent in room. She was pleasant and cooperative with cares.
[2021-11-04] VITALS (7 sets, daily range): BP systolic 108–124; BP diastolic 59–63; PULSE 72–75; RESP 18–20; TEMP 36.1–36.4; O2SAT 89–95
[2021-11-04 06:55] LABS: HCO3 VBG 31 mmol/L (21-28); PCO2 VBG 50 mmHG (40-50); PO2 VBG 35.7 mmHG (25-47); pH VBG 7.408 (7.32-7.43)
[2021-11-04 07:06] LABS: Basophils Absolute Auto 0.03 K/uL (0.00-0.30); Basophils Percent Auto 0.5 % (0.0-3.0); Eosinophils Absolute Auto 0.05 K/uL (0.00-0.50); Eosinophils Percent Auto 0.8 % (0.0-7.0); Hematocrit 38.7 % (33.0-51.0); Hemoglobin* 12.4 gm/dL (12.0-16.0); Immature Granulocytes Abs Auto 0.04 K/uL (0.00-0.30); Lymphocytes Absolute Auto 2.28 K/uL (0.90-2.90); Lymphocytes Percent Auto 34.2 % (20-44); Mean Corpuscular HGB Conc 32 gm/dL (32-36); Mean Corpuscular Hemoglobin 28 pg (26-34); Mean Corpuscular Volume 87 fL (80-100); Monocytes Percent Auto 8.3 % (0.0-11.0); Neutrophils Absolute Auto 3.71 K/uL (1.7-7.0); Neutrophils Percent Auto 55.6 % (42.0-72.0); Platelet Count* 175 K/uL (140-440); Red Blood Count 4.46 m/uL (4.00-5.20); White Blood Count* 6.66 K/uL (4.50-11.00)
[2021-11-04 07:12] LABS: Slide Review Reflex No
[2021-11-04 07:16] LABS: Chloride* 99 mmol/L (96-114); Potassium* 4.4 mmol/L (3.6-5.1); Sodium* 135 mmol/L (135-149)
[2021-11-04 07:19] LABS: Blood Urea Nitrogen* 22 mg/dL (7-30); Carbon Dioxide* 32 mmol/L (20-32); Creatinine* 0.7 mg/dL (0.5-1.5); Est. Creatinine Clearance* 39.63; Estimated Glomerular Filt Rate 91 ml/min
[2021-11-04 07:20] LABS: Calcium* 8.7 mg/dL (8.4-10.6); Glucose* 110 mg/dL (60-115)
[2021-11-04 07:29] LABS: NT Pro B Type NatriureticPept* 858 PG/mL (0-125)
--- NOTE | 2021-11-04 07:29 | PC.NURSE ---
Shift note: The pt has been on 3L of oxygen via CPAP throughout the night. The pt has been in RA since 0500 SPO2 has been in low 90s. She reported slight short of breath with exertion. Denied chest pain and other distress throughout the night.
[2021-11-04 07:32] LABS: Troponin I* 0.02 ng/mL (0.01-0.04)
[2021-11-04] MEDS: POTASSIUM CHLORIDE 10 MEQ CAPSULE ER 40 MEQ PO (08:10)
[2021-11-04] MEDS: ASPIRIN 81 MG TABLET EC PO (08:11)
[2021-11-04] MEDS: FUROSEMIDE 40 MG TABLET PO (08:13)
--- NOTE | 2021-11-04 11:02 | RESP.RT ---
Patient uses Home CPAP and was told this AM that she desated overnight while wearing her CPAP. She was 95% on room air at rest and dropped to 89% on room air while walking, but quickly recovered to 94% when she stood and took a couple deep breaths.
--- NOTE | 2021-11-04 13:26 | PM.DS1 ---
DS: Providers Provider Date Seen: 11/04/21 Date of admission: 11/01/21 23:06 Primary care physician: Lorin Parson MD Admitting Clinician: Olivia Joseph MD Consults: 11/02/21 00:44 Consult to Respiratory Therapy [CONS] Routine Comment: Reason(s) for RT Consult:: Consult Attending Physician on discharge: [facility] Date of Discharge: 11/04/21 DS: Diagnosis Discharge Diagnosis (1) Heart failure with preserved ejection fraction: Status: Acute Problem details: Echocardiogram 11/02/2021 shows ejection fraction of 60 65% with normal wall thickness and normal global systolic function (2) Mitral regurgitation: Status: Acute Problem details: Echocardiogram 11/02/2021 shows severe mitral regurgitation (3) Acute respiratory failure with hypoxia: Status: Acute (4) ZACHARY on CPAP: Status: Acute DS: Summary Hospital Course Hospital Course: HOSPITALIST DISCHARGE SUMMARY ATTENDING PHYSICIAN: Isabelle Nogueira MD FINAL DIAGNOSIS: Severe mitral regurgitation 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 ZACHARY on CPAP HOSPITAL FOLLOWUP ISSUES: 1. Cardiology. Patient see's Dr. Mayen in [place]. Her valvular disease has accelerated. Would like for her to see him as soon as possible. She likely needs referral to the [place] valve clinic. 2. Sleep medicine. Patient needed oxygen titrated at night into her CPAP. I would like for her to connect with her sleep medicine doctor, Dr. Medina, for adjustments and O2 supplementation if needed. 3. PCP to follow up on weight trends, potassium and creatinine based on increased doses of Lasix and potassium supplementation. One week. REFERRALS WHILE ADMITTED: None REFERRALS AFTER DISCHARGE: Sleep medicine Cardiology BRIEF HOSPITAL COURSE: 71-year-old Ivonne is a delightful patient. She came in in acute respiratory distress and in flash pulmonary edema. This was felt to be secondary to her worsening valvular cardiomyopathy. Her echo revealed advanced and severe mitral regurgitation. She has been followed by Cardiology in [facility]. She will see them as an outpatient. We initially stabilized her on BiPAP and then she was weaned to nasal cannula oxygen. She did use her CPAP at night and that required some oxygen bleed in to keep her sats greater than 90%. By discharge she had lost over 3 kg, was on room air and feeling much improved. VITAL SIGN, MEDICATION, LAB/MICRO, IMAGING SUMMARY (full details available in account tabs or by records request) Echo 11/02 Preserved EF Severe centrally directed mitral regurgitation. The gradient is 9-10 mmHg. Weight Admission weight 103.4 kilos discharge weight 100.8 kg CBC unremarkable at discharge Blood gas reassuring at discharge Chemistries reassuring at discharge, potassium 4.4, creatinine 0.7 BNP down to 858 high of 1800 Med changes Increased furosemide from 20-40 mg orally. At discharge I actually started her on 40 mg twice a day. We also started potassium supplementation. Her other home meds were kept the same DISCHARGE MEDICATIONS: See Reconciled list REVIEW OF SYSTEMS No new chest pain or dyspnea Pain controlled No voiding difficulties Tolerating diet challenge PHYSICAL EXAM: CONSTITUTIONAL: VITAL SIGNS: see record. HEENT: Normocephalic, atraumatic. PERRL, EOMI, conjunctivae pink, no scleral icterus. Ears and nose externally normal. Pharynx normal. NECK: No JVD. No carotid bruit, no thyromegaly, no adenopathy. CHEST: Clear to auscultation bilaterally. HEART: S1 and S2 normal. Edema ABDOMEN: Soft, nontender. Normal bowel sounds. MUSCULOSKELETAL: No gross joint deformity or swelling. NEURO: Cranial nerves intact. Grossly intact. No asymmetric findings. SKIN: No rashes, petechiae, concerning changes PSYCHIATRIC: Mood euthymic. DISPOSITION: home. Time spent on discharge 37 minutes. Status at Discharge Functional status at discharge: independent ambulation Overall status at discharge: patient is progressing back to baseline Time Spent with Patient Time attestation: Total time spent providing and/or coordinating discharge services: Time spent: Greater than 30 minutes Exam Const: Vital Signs, click to edit/add: Vital Signs - 24 hr 11/03/21 15:00 11/03/21 15:00 11/03/21 21:13 Temperature 97.9 F 97.7 F Pulse Rate Pulse Rate [Right Radial] 74 74 Respiratory Rate 18 18 18 Blood Pressure [Le ft Arm] 120/59 L 119/59 L Pulse Oximetry 93 91 Oxygen Delivery Me thod Room Air Room Air Oxygen Flow Rate 11/04/21 00:40 11/04/21 05:35 11/04/21 07:00 Temperature 97 F L 97 F L Pulse Rate Pulse Rate [Right Radial] 75 72 74 Respiratory Rate 18 18 20 Blood Pressure [Le ft Arm] 113/63 108/62 Pulse Oximetry 95 91 Oxygen Delivery Me thod CPAP Room Air Oxygen Flow Rate 3 11/04/21 08:46 11/04/21 11:23 11/04/21 11:00 Temperature 97.6 F Pulse Rate 74 Pulse Rate [Right Radial] 74 75 Respiratory Rate 20 20 Blood Pressure [Le ft Arm] 124/60 114/59 L Pulse Oximetry 92 93 Oxygen Delivery Me thod Room Air Room Air Oxygen Flow Rate DS: Data Data Completed and Pending Labs on day of discharge: Labs from last 24 hours 11/04/21 11/04/21 11/04/21 06:15 06:15 06:15 WBC 6.66 RBC 4.46 Hgb 12.4 Hct 38.7 MCV 87 MCH 28 MCHC 32 RDW Coeff of Rene 14.0 Plt Count 175 Neut % (Auto) 55.6 Lymph % (Auto) 34.2 [place] % (Auto) 8.3 Eos % (Auto) 0.8 Baso % (Auto) 0.5 Neut # (Auto) 3.71 Lymph # (Auto) 2.28 Saline # (Auto) 0.60 Eos # (Auto) 0.05 Baso # (Auto) 0.03 Abs Immat Gran (auto) 0.04 VBG pH 7.408 VBG pCO2 50 VBG pO2 35.7 VBG HCO3 31 H Sodium 135 Potassium 4.4 Chloride 99 Carbon Dioxide 32 BUN 22 Creatinine 0.7 Estimated Creat Clear 39.63 Estimated GFR 91 Glucose 110 Calcium 8.7 Magnesium 2.0 Troponin I 0.02 NT-Pro-B Natriuret Pep 858 H Preliminary micro results at discharge 11/01/21 21:40 Blood Culture - Preliminary Blood NO GROWTH AFTER 48 HOURS 11/01/21 21:39 Blood Culture - Preliminary Blood NO GROWTH AFTER 48 HOURS Discharge Plan Discharge Disposition: Home, Self-Care Date of Admission: 11/01/21 23:06 Attending Provider on Discharge: Isabelle Nogueira Primary Care Provider: Lorin Parson Condition: Improved Anticipated Discharge Date/Time: 11/04/21 13:14 Discharge Medications: New furosemide 40 mg Tablet 40 mg PO BID Qty: 60 0RF Rx Instructions: take at 0800 and 1600 daily. will cause increased urination. potassium chloride 10 mEq Capsule, Extended Release 40 meq PO DAILY Qty: 30 0RF Rx Instructions: this helps replace potassium loss from the water pill Continued sertraline 100 mg tablet 100 mg PO HS nitroglycerin 0.4 mg tablet, sublingual 0.4 mg sublingual Q5M PRN Label Comments: hasn't taken in many years verapamil 240 mg tablet extended release 240 mg PO HS ezetimibe 10 mg tablet 10 mg PO HS rosuvastatin 40 mg tablet 40 mg PO HS aspirin 81 mg capsule 81 mg PO DAILY cholecalciferol (vitamin D3) 50 mcg (2,000 unit) capsule 50 mcg PO DAILY ramipril 5 mg capsule 10 mg PO HS Discontinued furosemide 20 mg tablet 20 mg PO DAILY Discharge Orders: Discharge Order (Routine); Ordered 11/04/21 Ordered By: Isabelle Nogueira Activity Restrictions/Additional Instructions: weigh yourself each morning; write down your weight, blood pressure and pulse. call MD if greater than 4lbs are gained overnight and sustained over two days. Activity Level: Activity as Tolerated Discharge Diet: Heart Healthy (2 gm sodium, low fat) Follow Up Appointments: Miguel Mayen [Other] (Patient will need to call on FridayNovember 05 [facility] for a Cardiology appointment with Dr. Mayen. Follow up as soon as possible for in person or phone call visit. Bring Echocardiogram paperwork to appointment.) Lorin Parson MD [Primary Care Provider] - Adams Medina MD [Referring] - ([facility] will contact patient on FridayNovember 05 to schedule soonest available appointment for a CPAP adjustment.) Forms: [employer] Info Instructions
--- NOTE | 2021-11-04 14:52 | PC.NURSE ---
pt d/c with at 1450. d/c packet reviewed and signed, all questions answered. written prescription for K+ and Lasix given to pt. belongings form signed. 2 IVs removed, cath intact.
== END 2021-11-04 14:50 | disposition home or self-care (01) | DRG 291 ==
LOC: ED 23:06 → MEDSURG 11-02 09:42
PROVIDERS: Family Medicine; Admitting Provider Family Medicine; Emergency Provider Emergency Medicine Emergency Medical Services; PCP Family Medicine; Visit Provider Family Medicine
DX: I11.0 Hypertensive heart disease with heart failure (principal); J96.01 Acute respiratory failure with hypoxia; J81.0 Acute pulmonary edema; I50.23 Acute on chronic systolic (congestive) heart failure; I43 Cardiomyopathy in diseases classified elsewhere; G47.33 Obstructive sleep apnea (adult) (pediatric); E87.6 Hypokalemia; I05.2 Rheumatic mitral stenosis with insufficiency; I25.10 Atherosclerotic heart disease of native coronary artery without angina pectoris; I25.2 Old myocardial infarction; Z86.16 Personal history of COVID-19
CPT/HCPCS: 36415; 71045; 71046; 71260; 80048; 82803; 83735; 83880; 84484; 85025; 85379; 87040; 87635; 93005; 93306; 94761; 99285; 99291; A9270; J0456; J0696; J1650; J1940; J2060; J2930; J7050; Q9967

== ENCOUNTER 2021-11-30 15:15 | Outpatient (CLI) | payer MEDICARE, BC, SELFPAY ==
[2021-11-30 16:51] LABS: Chloride* 95 mmol/L (96-114); Potassium* 4.9 mmol/L (3.6-5.1); Sodium* 138 mmol/L (135-149)
[2021-11-30 16:53] LABS: Creatinine* 0.9 mg/dL (0.5-1.5); Estimated Glomerular Filt Rate 68 ml/min
[2021-11-30 16:54] LABS: Blood Urea Nitrogen* 16 mg/dL (7-30); Calcium* 9.5 mg/dL (8.4-10.6); Carbon Dioxide* 31 mmol/L (20-32); Glucose* 110 mg/dL (60-115)
== END 2021-11-30 15:16 | disposition home or self-care (01) ==
LOC: NFLDREF 15:16
PROVIDERS: PCP Family Medicine; Visit Provider Family Medicine
DX: I10 Essential (primary) hypertension (principal)
CPT/HCPCS: 80048

== ENCOUNTER 2021-12-07 13:12 | Outpatient (CLI) | payer MEDICARE, BC, SELFPAY ==
--- NOTE | 2021-12-07 13:20 | CRLHL7_ITS ---
For Patients: As a result of the Century Cures Act, medical imaging exams and procedure reports are released immediately into your electronic medical record. You may view this report before your referring provider. If you have questions, please contact your health care provider. BILATERAL SCREENING MAMMOGRAM WITH COMPUTER-AIDED DETECTION AND TOMOSYNTHESIS TECHNIQUE: CC and MLO views were obtained. These mammographic images have been obtained using full-field digital technique. These mammographic images were interpreted with the benefit of computer-aided detection. Breast Tomosynthesis was used in this interpretation. COMPARISON FILM: 11/08/20, 11/08/19, 06/06/18. FINDINGS: The breasts are heterogeneously dense, which may obscure small masses IMPRESSION: There is no radiographic evidence for malignancy. ASSESSMENT: BI-RADS Category 2: Benign RECOMMENDATION: Routine screening mammogram in 1 year. A lay language report of this examination will be provided to the patient. Harjinder Crane M.D. Diagnostic Radiologist [email or web address] NICO/Dictated by: Harjinder Crane MD @ 12/10/2021 10:54:00 AM (Electronically Signed)
== END 2021-12-07 13:13 | disposition home or self-care (01) ==
LOC: MAMMO 13:12
PROVIDERS: PCP Family Medicine; Visit Provider Family Medicine
DX: Z12.31 Encounter for screening mammogram for malignant neoplasm of breast (principal); R92.2 Inconclusive mammogram
CPT/HCPCS: 77063; 77067

== ENCOUNTER 2022-01-10 08:55 | Outpatient (CLI) | payer MEDICARE, BC, SELFPAY ==
--- OUTSIDE RECORDS SUMMARY | 2022-01-10 08:59 | XMS_ITS | Clinical Summary ---
:1950 Author Organization [facility] Address [address] [place] [id number] Care Team Providers Name Role Phone Elsewhere, Pcp Primary Care Provider Unavailable Source Comments Patient records contain information from all sites at [facility]. For routine questions regarding patient records, call [phone] during business hours, M-F 8:00 AM - 5:00 PM Central Time. Record requests for emergency care only can be directed to [phone] at any time.[facility] Allergies Active Allergy Reactions Severity Noted Date Comments Sulfa (Sulfonamide Antibiotics) Other (see comments) 0 10/10/2009 Medications Medication Sig Dispensed Refills Start Date End Date Status cholecalciferol Take 2,000 0 Act john (VITAMIN D3) 2,000 Unit Units by mouth capsule daily. ezetimibe (ZETIA) 10 mg Take 10 mg by 0 07/31/2018 Active tablet mouth at bedtime. nitroglycerin Place 0.4 mg 0 Act john (NITROSTAT) 0.4 mg SL under the tablet tongue as needed. rosuvastatin (CRESTOR) Take 1 tablet 0 06/08/2012 Active 40 mg tablet by mouth at bedtime. sertraline (ZOLOFT) 100 Take 1 tablet 0 06/08/2012 Active mg tablet by mouth at bedtime. calcium carbonate Take 2 tablets 0 Active (CALCIUM 500 ORAL) by mouth daily. albuterol 90 Inhale 2 puffs 0 Ac tive mcg/actuation inhaler every 4 (four) hours as needed. aspirin 81 mg chewable Chew 1 tablet 90 tablet 3 12/28/2020 Active tablet (81 mg total) daily. miscellaneous medical CPAP machine 0 12/20/2020 Active supply misc for home use at pressure 5-16 cmw, nasal mask x1/3month with nasal pillows x 2/mo ramipriL (ALTACE) 5 mg Take 2 capsules 180 capsule 3 2 Active capsule (10 mg total) by mouth daily. verapamiL (CALAN-SR) Take 1 tablet 90 tablet 3 05/09/2021 Active 240 mg ER tablet (240 mg total) by mouth at bedtime. clopidogreL (PLAVIX) 75 Take 1 tablet 30 tablet 11 11/16/2021 Active mg tablet (75 mg total) by mouth daily. furosemide (LASIX) 20 Take 1 tablet 180 tablet 3 11/23/2021 Active mg tablet (20 mg total) by mouth 2 (two) times a day. potassium chloride Take 1 tablet 90 tablet 3 11/23/2021 Active (KLORCON/K-TAB) 10 mEq (10 mEq total) ER tablet by mouth daily with breakfast. Do not crush or chew. 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 11/14/2020 Pectoris Coronary Artery Disease Without Angina Pectoris 2018 Apnea Sleep Obstructive 09/02/2018 Obesity Body Mass Index 30-39.9 Adult 09/02/2018 Impaired Fasting Glucose 09/02/2018 Cancer Breast Personal History 09/02/2018 Dyspnea On Exertion 08/10/2014 Hypertensive Heart Disease Without Heart Failure 06/08 Ischemic Heart Chronic Disease 06/08/2012 Hyperlipidemia On Treatment 06/08/2012 Encounters Date Type Specialty Care Team Description 12/13/2021 Hospital Encounter Laboratory Medicine Venkata Mayen ronary Artery Disease Without Angina Pectoris; Tiffanie Rivera Atherosclerotic Heart Disease Of [place] Coronary Artery Without Angina Pectoris; Cardiac Disease ; Regurgitation M itral; Chronic Diastol ic (Congestive) Heart Failure ([facility]) 12/13/2021 Comprehensive Visit Cardiovascular Venkata Mayen Regurg itation Mitral (Primary Dx); Disease Tiffanie Rivera Coronary Artery Disease Without Angina Pectoris; Atherosclerotic Heart Disease Of [place] Coronary Artery Without Angina Pectoris; Cardiac Disease ; Chronic Diastol ic (Congestive) Heart Failure (HCC) 12/12/2021 Clinical Admitting/Central Pre-visit Intake Communication Scheduling 11/22/2021 Surgery Cardiovascular Harshad, PERCUTANEOUS CORONARY Disease Tiffanie Holley, INTERVENTION Ph.D. 11/21/2021 Surgery Cardiovascular Kimberlee, CORONARY ALEJA OGRAPHY Disease Stevie Howell M.D. 11/21/2021 Hospital Encounter Kimberlee, Cardiac D isease (Primary Dx); - Stevie Howell, Regurgitation M itral; 11/23/2021 Tiffanie Chronic Diastolic (Congestive) Heart Jose lure ([facility]); Simon, Pain Chest; Carlos Weber, Impaired Fastin g Glucose; M.DAguilar Dyspnea Multifactorial; Jean Carlos Martinez Ischemic Heart Chronic Disease; Tiffanie Anthony Regurgitation M itral; Chronic Diastol ic (Congestive) Heart Failure ([facility]); Pain Chest; Atherosclerotic Heart Disease Of [place] Coronary Artery Without Angina Pectoris; Coronary Stent Status Post 11/21/2021 Clinical Cardiovascular Gabriela, Communication Disease Melinda Velasquez P.A.-C. 11/20/2021 Hospital Encounter Laboratory Medicine Venkata Mayen Pr eprocedural Lab Exam; Tiffanie Rivera Contact With An d (Suspected) Exposure To COVID-19 11/20/2021 Office Visit Cardiovascular Venkata Mayen Angina Progre ssive ([facility]) (Primary Dx); Disease Tiffanie Rivera Ischemic Heart Chronic Disease; Regurgitation M itral; Dyspnea On Exer tion; Chronic Diastol ic (Congestive) Heart Failure ([facility]) 11/20/2021 Hospital Encounter Radiology Venkata Mayen Dyspnea O n Exertion; Tiffanie Rivera 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; Regurgitation M itral; Ischemic Heart Chronic Disease 11/20/2021 Hospital Encounter Laboratory Medicine Venkata Mayen Im paired Fasting Glucose; Tiffanie Rivera Dyspnea Multifa ctorial; Regurgitation M itral; Chronic Diastol ic (Congestive) Heart Failure ([facility]) 11/14/2021 Hospital Encounter Radiology Venkata Mayen Dyspnea O n Exertion; Tiffanie Rivera Chronic Diastol ic (Congestive) Heart Failure (HCC); 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; Regurgitation M itral; Ischemic Heart Chronic Disease 11/14/2021 Hospital Encounter Cardiovascular Venkata Mayen Dyspnea On Exertion; Disease Tiffanie Rivera Chronic Diastol ic (Congestive) Heart Failure (HCC); 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; Regurgitation M itral; Ischemic Heart Chronic Disease 11/14/2021 Office Visit Cardiovascular Venkata Mayen Dyspnea Multi factorial (Primary Dx); Disease Tiffanie Rivera Impaired Fastin g Glucose; Regurgitation M itral; Chronic Diastol ic (Congestive) Heart Failure (HCC); Pain Chest; Ischemic Heart Chronic Disease 11/12/2021 Hospital Encounter Cardiovascular Venkata Mayen Dyspnea On Exertion; Ale Rivera M.D. 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 10/17/2021 Orders Only Cardiovascular Venkata Mayen Dyspnea On Ex ertion (Primary Dx); Ale Rivera M.D. Ischemic Heart Chronic Disease; Chronic Diastol ic (Congestive) Heart Failure (HCC); 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 from Last 3 Months Immunizations Name Administration Dates Next Due SARS-COV-2 (COVID-19) - PFIZER (12 years or older) 1, 05/11/2020 Family History Medical History Relation Name Comments Coronary artery disease Brother polina baxter Coronary artery disease Father raysa baxter Hypertension Father raysa baxter Diabetes Maternal Grandfather josiah conway Breast cancer Maternal Grandmother josiah conway deceaced Breast cancer Mother wendy baxter Breast cancer Paternal Grandmother augusta baxter Breast cancer Sister 1 kandace jayden Hyperlipidemia Sister 1 kandace jayden Lymphoma Sister 1 kandace jayden Breast cancer Sister 2 peyton manoj Colon cancer Sister 2 peyton manoj Lung cancer Sister 2 peyton manoj Breast cancer Sister 3 joe mendiola Relation Name Status Comments Brother polina baxter Father raysa baxter Maternal Grandfather josiah conway Maternal Grandmother josiah conway Mother wendy baxter Paternal Grandmother augusta easter Sister 1 kandace jayden Sister 2 peyton manoj Sister 3 joe mendiola Social History Tobacco Use Types Packs/Day Years Used Date Smoking Tobacco: Former Cigarettes 0 0 08/1965 - 04/01/1979 Smokeless Tobacco: Never Tobacco Cessation: Counseling Given: No Alcohol Use Standard Drinks/Week Comments Yes 10 (1 standard drink = 0.6 oz pure alcoh ol) Alcohol Habits Answer Date Recorded How often do you have a drink containing 4 or more times a w [place] 11/13/2021 alcohol? How many drinks containing alcohol do you have 1 or 2 11/13/2021 on a typical day when you are drinking? How often do you have six or more drinks on one Less than mo nthly 11/13/2021 occasion? Social Isolation Answer Date Recorded In a typical week, how many times do you More than three gómez es a week 11/13/2021 talk on the phone with family, friends, or neighbors? How often do you get together with friends Patient refused 11/13/2021 or relatives? How often do you attend religion or More than 4 times per year 11/13/2021 gnosticist services? Do you belong to any clubs or Yes 11/13/2021 organizations such as religion groups, unions, fraternal or athletic groups, or school groups? How often do you attend meetings of the Never 11/13/2021 clubs or organizations you belong to? Are you now , , , 11/13/2021 , never or living with a partner? Physical Activity Answer Date Recorded On average, how many days per week do you engage in moderate to 4 days 11/13/2021 strenuous exercise (like walking fast, running, jogging, dancing, swimming, biking, or other activities that cause a light or heavy sweat)? On average, how many minutes do you engage in exercise at th is 40 min 11/13/2021 level? Stress Answer Date Recorded Do you feel stress - tense, restless, nervous, or Only a lit tle 11/13/2021 anxious, or unable to sleep at night because your mind is troubled all the time - these days? Financial Resource Strain Answer Date Recorded How hard is it for you to pay for the very basics like Not h yung at all 11/13/2021 food, housing, medical care, and heating? Intimate Partner Violence Answer Date Recorded Within the last year, have you been afraid of your partner o r No 11/13/2021 ex-partner? Within the last year, have you been humiliated or emotionall y No 11/13/2021 abused in other ways by your partner or ex-partner? Within the last year, have you been kicked, hit, slapped, or No 11/13/2021 otherwise physically hurt by your partner or ex-partner? Within the last year, have you been raped or forced to have any No 11/13/2021 kind of sexual activity by your partner or ex-partner? Food Insecurity Answer Date Recorded Within the past 12 months, you worried that your food would Never true 11/13/2021 run out before you got money to buy more. Within the past 12 months, the food you bought just didn't N ever true 11/13/2021 last and you didn't have money to get more. Transportation Needs Answer Date Recorded In the past 12 months, has lack of transportation kept you f rom No 11/13/2021 medical appointments or from getting medications? In the past 12 months, has lack of transportation kept you f rom No 11/13/2021 meetings, work, or getting things needed for daily living? Housing Stability Answer Date Recorded In the last 12 months, was there a time when you were not ab le No 11/13/2021 to pay the mortgage or rent on time? In the last 12 months, how many places have you lived? 1 04/09/2021 In the last 12 months, was there a time when you did not hav e a No 11/13/[address] sleep or slept in a alf (including now)? Education Answer Date Recorded What is the highest level of school you have completed or 12 th grade 10/02/2020 the highest degree you have received? Sex Assigned at Date Recorded Female 05/03/2021 9:58 AM [employer] Last Filed Vital Signs Vital Sign Reading Time Taken Comments Blood Pressure 103/52 12/13/2021 8:26 AM CDT BpTRU Pulse 59 12/13/2021 8:26 AM CDT Temperature 36.7 ??C (98.1 ??F) 11/23/2021 11:58 AM CDT Respiratory Rate 18 11/23/2021 12:00 PM CDT Oxygen Saturation 96% 11/23/2021 12:00 PM CDT Inhaled Oxygen Concentration - - Weight 96.8 kg (213 lb 6.5 oz) 12/13/2021 8:26 AM CDT Height 158.1 cm (5' 2.24) 12/13/2021 8:26 AM CDT Body Mass Index 38.73 12/13/2021 8:26 AM CDT Plan of Treatment Health Maintenance Due Date Last Done Comments Bone Density Scan (Osteoporosis 1950 Screen) CT Colonography 1950 Cologuard 1950 Hepatitis C Screening 1950 Zoster Vaccines (1 of 2) 01/05/1998 Colonoscopy 03/24/2014 03/24/2009 (Performed elsewhere) Colorectal Cancer Surveillance 03/24/2014 Mammogram 07/22/2017 07/22/2016 (Performed elsewhere), 07/07/2014 (Performed elsewhere) Depression Screening (Annual 03/24/2021 PHQ-2) COVID-19 Vaccine (5 - Booster for 10/17/2021 08/22/2021, , Pfizer series) 05/31/2020, Additional history exists Influenza Vaccine (#1) 2021 03/08/2021, 03/08/2021, 01/25/2020, Additional history exists Creatinine Level 12/13/2022 12/13/2021, 11/23/2021, 11/22/2021, Additional history exists Fasting Glucose for Diabetes 12/13/2022 12/13/2021, 022, Screening 11/22/2021, Additional history exists Office Visit for Blood Pressure 12/13/2022 12/13/2021 Check / Re-check Potassium Level 12/13/2022 12/13/2021, 11/23/2021, 11/22/2021, Additional history exists Sodium Level 12/13/2022 12/13/2021, 11/23/2021, 11/22/2021, Additional history exists DTaP,Tdap,and Td Vaccines (2 - Td 07/23/2026 07/23/2016 or Tdap) Lipid (Cholesterol) Screening 11/12/2026 11/12/2021, 2021, 10/03/2020, Additional history exists Pneumococcal vaccine (65+ years) Completed 01/25/2015, 07/2012 Fall Risk Screen (Annual) Completed 11/21/2021 Medical Devices Implanted Type Area Solid State Tester Device Shelf Model / Identifier Expiration Date Ser ial / Lot Cardiac Stent Cardiac Heart Stent Description: 5 cardiac stents Stnt Synergy Xd De 4.00x24 - [id number] Cardiac N/A: [place] 09/19/2021 [id number] / Implanted: Qty: 1 on 11/14/2020 by Dontae Richardson M.D. at [facility] Stent Coronary Scientific / [id number] Description: Prox RCA Stnt Ronyx Kenji Rx 4x18 - [id number] Cardiac Stent N/A: Coronary Me dtronic 06/27/2024 [id number] / Implanted: Qty: 1 on 11/22/2021 by Kishan Mark i, M.D., Ph.D. at [facility] / [id number] Description: Ost RCA Hardware E.G. Pins/Screws/Rods Hardware e.g. pins/screws/rods Wrist Description: Right wrist Procedures Procedure Name Priority Date/Time Associated Diagnosis Comme nts ECG Routine 12/13/2021 Coronary Artery Results for 10:13 AM CDT Disease Without this procedu re Angina Pectoris are in the Atherosclerotic results Heart Disease Of section. [place] Coronary Artery Without Angina Pectoris Cardiac Disease Regurgitation Mi tral Chronic Diastolic (Congestive) Heart Failure (HCC) NT-PRO B-TYPE Routine 12/13/2021 Coronary Artery Results for NATRIURETIC PEPTIDE 9:58 AM CDT Disease Without this procedure (BNP), S Angina Pectoris are in the Atherosclerotic results Heart Disease Of section. [place] Coronary Artery Without Angina Pectoris Cardiac Disease Regurgitation Mi tral Chronic Diastolic (Congestive) Heart Failure (HCC) BASIC METABOLIC Routine 12/13/2021 Coronary Artery Results f or PANEL, S/P 9:58 AM CDT Disease Without this procedu re Angina Pectoris are in the Atherosclerotic results Heart Disease Of section. [place] Coronary Artery Without Angina Pectoris Cardiac Disease Regurgitation Mi tral Chronic Diastolic (Congestive) Heart Failure (HCC) CBC WITHOUT Routine 12/13/2021 Coronary Artery Results for DIFFERENTIAL, B 9:58 AM CDT Disease Without this proc edure Angina Pectoris are in the Atherosclerotic results Heart Disease Of section. [place] Coronary Artery Without Angina Pectoris Cardiac Disease Regurgitation Mi tral Chronic Diastolic (Congestive) Heart Failure (HCC) BASIC METABOLIC Routine 11/23/2021 Results for PANEL, S/P 9:45 AM CDT this procedure are in the results section. CBC WITHOUT Routine 11/23/2021 Results for DIFFERENTIAL, B 9:45 AM CDT this procedu re are in the results section. ECG Timed 11/22/2021 Results for 4:32 PM CDT this procedure are in the results section. ACT, POCT, B Routine 11/22/2021 Results for 4:31 PM CDT this procedure are in the results section. ADULT OXYGEN THERAPY Routine 11/22/2021 4:26 PM CDT ADULT OXYGEN THERAPY Routine 11/22/2021 4:26 PM CDT CARDIAC Routine 11/22/2021 Atherosclerotic Results for CATHETERIZATION 4:17 PM CDT Heart Disease Of this pro cedure [place] Coronary are in the Artery Without results Angina Pectoris section. CARDIAC Routine 11/22/2021 Atherosclerotic Results for CATHETERIZATION 4:17 PM CDT Heart Disease Of this pro cedure [place] Coronary are in the Artery Without results Angina Pectoris section. CARDIAC Routine 11/22/2021 Atherosclerotic Results for CATHETERIZATION 4:17 PM CDT Heart Disease Of this pro cedure [place] Coronary are in the Artery Without results Angina Pectoris section. CARDIAC Routine 11/22/2021 Atherosclerotic Results for CATHETERIZATION 4:17 PM CDT Heart Disease Of this pro cedure [place] Coronary are in the Artery Without results Angina Pectoris section. CARDIAC Routine 11/22/2021 Atherosclerotic Results for CATHETERIZATION 4:17 PM CDT Heart Disease Of this pro cedure [place] Coronary are in the Artery Without results Angina Pectoris section. ACT, POCT, B Routine 11/22/2021 Results for 4:07 PM CDT this procedure are in the results section. ACT, POCT, B Routine 11/22/2021 Results for 2:17 PM CDT this procedure are in the results section. ADULT OXYGEN THERAPY Routine 11/22/2021 8:01 AM CDT BASIC METABOLIC Routine 11/22/2021 Results for PANEL, S/P 5:13 AM CDT this procedure are in the results section. CBC WITHOUT Routine 11/22/2021 Results for DIFFERENTIAL, B 5:13 AM CDT this procedu re are in the results section. HEPARIN LEVEL ANTI-XA Timed 11/22/2021 Result s for ASSAY, P 5:12 AM CDT this procedure are in the results section. PATIENT'S OWN Routine 11/21/2021 CPAP/BIPAP 11:25 PM CDT HEPARIN LEVEL ANTI-XA Timed 11/21/2021 Result s for ASSAY, P 10:11 PM CDT this procedure are in the results section. ADULT OXYGEN THERAPY Routine 11/21/2021 8:01 PM CDT MAGNESIUM, S Timed 11/21/2021 Results for 3:37 PM CDT this procedure are in the results section. CBC WITH Timed 11/21/2021 Results for DIFFERENTIAL, B 3:37 PM CDT this procedu re are in the results section. BASIC METABOLIC Timed 11/21/2021 Results for PANEL, S/P 3:37 PM CDT this procedure are in the results section. ADULT OXYGEN THERAPY Routine 11/21/2021 2:14 PM CDT ADULT OXYGEN THERAPY Routine 11/21/2021 2:14 PM CDT ECHO - Routine 11/21/2021 INTRAPROCEDURAL 1:05 PM CDT IMAGES ONLY CARDIAC Routine 11/21/2021 Impaired Fasting Results for CATHETERIZATION 12:27 PM CDT Glucose this procedure Dyspnea are in the Multifactorial results Regurgitation Mi tral section. Chronic Diastolic (Congestive) Heart Failure (HCC) Pain Chest Ischemic Heart Chronic Disease CARDIAC Routine 11/21/2021 Impaired Fasting Results for CATHETERIZATION 12:27 PM CDT Glucose this procedure Dyspnea are in the Multifactorial results Regurgitation Mi tral section. Chronic Diastolic (Congestive) Heart Failure (HCC) Pain Chest Ischemic Heart Chronic Disease CARDIAC Routine 11/21/2021 Impaired Fasting Results for CATHETERIZATION 12:27 PM CDT Glucose this procedure Dyspnea are in the Multifactorial results Regurgitation Mi tral section. Chronic Diastolic (Congestive) Heart Failure (HCC) Pain Chest Ischemic Heart Chronic Disease SARS COV-2 RNA, PCR, Routine 11/20/2021 Preprocedural Lab Re sults for VARIES 4:16 PM CDT Exam this procedure Contact With And are in the (Suspected) Exposure results To COVID-[address] ABDOMEN PELVIS RAD - Routine 11/20/2021 Dyspnea On Exe rtion Results for ANGIOGRAM WITH IV (most inpatients 2:39 PM CDT Stenosis Mitral Not this procedure CONTRAST and all Rheumatic Acquir ed are in the outpatients) Regurgitation Mi tral results Ischemic Heart section. Chronic Disease CT CARDIAC ANGIOGRAM RAD - Routine 11/20/2021 Dyspnea On Exertion Results for STRUCTURE MORPHOLOGY (most inpatients 2:39 PM CDT Stenosis Mitral Not this procedure WITH IV CONTRAST and all Rheumatic Acqui red are in the outpatients) Regurgitation Mi tral results Ischemic Heart section. Chronic Disease BASIC METABOLIC Routine 11/20/2021 Impaired Fasting Results for PANEL, S/P 12:18 PM CDT Glucose this procedure Dyspnea are in the Multifactorial results Regurgitation Mi tral section. Chronic Diastolic (Congestive) Heart Failure (HCC) DX CHEST AP OR PA AND RAD - Routine 11/14/2021 Dyspnea On Exertion Results for LATERAL 2 VIEWS (most inpatients 3:55 PM CDT Chronic Diastolic thi s procedure and all (Congestive) Heart are in th e outpatients) Failure ([facility]) results Stenosis Mitral Not section. Rheumatic Acquir ed Regurgitation Mi tral Ischemic Heart Chronic Disease ([place]ILL[place]) 2D WITH COLOR, Routine 11/14/2021 Dyspnea On Exertion Results for LIMITED DOPPLER AND 2:22 PM CDT Chronic Diastolic thi s procedure CONTRAST (Congestive) Heart are in th e Failure ([facility]) results Stenosis Mitral Not section. Rheumatic Acquir ed Regurgitation Mi tral Ischemic Heart Chronic Disease SARS COV-2 RNA, PCR, Routine 11/12/2021 Encounter For Result s for VARIES 1:50 PM CDT Preprocedural this procedure Laboratory are in the Examination results (COVID-19) section. Contact With And (Suspected) Exposure To COVID-19 (TTE) 2D ECHO DOPPLER Routine 11/12/2021 Dyspnea On Exertion Results for COLOR 1:17 PM CDT Chronic Diastolic this proce dure (Congestive) Heart are in th e Failure (HCC) results Stenosis Mitral Not section. Rheumatic Acquir ed Regurgitation Mi tral Ischemic Heart Chronic Disease ECG Routine 11/12/2021 Dyspnea On Exert ion Results for 10:11 AM CDT Chronic Diastolic this proce dure (Congestive) Heart are in th e Failure (HCC) results Stenosis Mitral Not section. Rheumatic Acquir ed Regurgitation Mi tral Ischemic Heart Chronic Disease PROTHROMBIN TIME Routine 11/12/2021 Dyspnea On Exer tion Results for (PT), P 8:59 AM CDT Chronic Diastolic this proce dure (Congestive) Heart are in th e Failure (HCC) results Stenosis Mitral Not section. Rheumatic Acquir ed Regurgitation Mi tral Ischemic Heart Chronic Disease THYROID-STIMULATING Routine 11/12/2021 Dyspnea On E xertion Results for HORMONE-SENSITIVE 8:59 AM CDT Chronic Diastolic this procedure (S-TSH) (Congestive) Heart are in th e Failure (HCC) results Stenosis Mitral Not section. Rheumatic Acquir ed Regurgitation Mi tral Ischemic Heart Chronic Disease CBC WITHOUT Routine 11/12/2021 Dyspnea On Exert ion Results for DIFFERENTIAL, B 8:59 AM CDT Chronic Diastolic this pr ocedure (Congestive) Heart are in th e Failure (HCC) results Stenosis Mitral Not section. Rheumatic Acquir ed Regurgitation Mi tral Ischemic Heart Chronic Disease LIPID PANEL, S Routine 11/12/2021 Dyspnea On Exert ion Results for 8:59 AM CDT Chronic Diastolic this proce dure (Congestive) Heart are in th e Failure (HCC) results Stenosis Mitral Not section. Rheumatic Acquir ed Regurgitation Mi tral Ischemic Heart Chronic Disease NT-PRO B-TYPE Routine 11/12/2021 Dyspnea On Exert ion Results for NATRIURETIC PEPTIDE 8:59 AM CDT Chronic Diastolic thi s procedure (BNP), S (Congestive) Heart are in th e Failure (HCC) results Stenosis Mitral Not section. Rheumatic Acquir ed Regurgitation Mi tral Ischemic Heart Chronic Disease COMPREHENSIVE Routine 11/12/2021 Dyspnea On Exert ion Results for METABOLIC PANEL, S/P 8:59 AM CDT Chronic Diastolic th is procedure (Congestive) Heart are in th e Failure (HCC) results Stenosis Mitral Not section. Rheumatic Acquir ed Regurgitation Mi tral Ischemic Heart Chronic Disease HEMOGLOBIN A1C, B Routine 11/12/2021 Impaired Fasting Result s for 8:56 AM CDT Glucose this procedure are in the results section. OUTSIDE DX CHEST Routine 11/03/2021 Results for 10:00 AM CDT this procedure are in the results section. OUTSIDE US CARD Routine 11/02/2021 Results for 8:15 AM CDT this procedure are in the results section. OUTSIDE CT BODY Routine 11/01/2021 Results for 11:15 PM CDT this procedure are in the results section. OUTSIDE DX CHEST Routine 11/01/2021 Results for 10:10 PM CDT this procedure are in the results section. from Last 3 Months Results ECG 12 Lead (12/13/2021 10:13 AM CDT)Only the most recent of3 resultswithin the time period is included. P athologist Signature Ventricular Rate 64 BPM MUSE ECG/Min ME Interval 154 ms MUSE QRSD Interval 88 ms MUSE QT Interval 420 ms MUSE QTC Interval 433 ms MUSE P [place] 60 degrees MUSE R [place] 30 degrees MUSE T Wave [place] -5 degrees MUSE Specimen Anatomical Collection Method Collection Time Receive d Time (Source) Location / / Volume Laterality 12/13/2021 10:13 12/13/2021 AM CDT 10:15 AM CDT Impressions MUSE - 12/13/2021 10:15 AM CDT Normal sinus rhythm Normal ECG When compared with ECG of 22-NOV-2021 16 :32, QT has shortened Reviewed by LOGAN Philip Narrative This result has an attachment that is no t available. Procedure Note Carlos Galdamez M.D., Ph.D. - 12/14/19 22 IMPRESSION: Normal sinus rhythm Normal ECG When compared with ECG of 22-NOV-2021 16 :32, QT has shortened Reviewed by LOGAN Philip Venkata Mayen M.D. ECG ORDERABLES Performing Organization Address City/State/ZIP Code Phon e Number MUSE MUSE NA NT-Pro B-Type Natriuretic Peptide (BNP) (12/13/2021 9:58 AM CDT)Only the most recent of2 resultswithin the time period is included. P athologist Signature NT-Pro BNP 456 <=540 pg/mL 12/13/2021 DTL 11:35 AM CDT Comment: NT-proBNP values less than 300 pg/mL hav e a 99% negative predictive value for excluding acute con gestive heart failure. A cutoff of 1200 pg/mL for julissa ents with an eGFR<60 yields a diagnostic sensitivity and spec ificity of 89% and 72% for acute congestive heart failure. A diagnostic NT-proBNP cutoff of 900 pg/mL has been s uggested in adults 50-75 years of age in the absence of nicole al failure. Specimen Anatomical Collection Method Collection Time Receive d Time (Source) Location / / Volume Laterality Blood (Blood, 12/13/2021 9:58 AM 12/14/19 Venous) CDT 10:44 AM CDT Venkata Mayen M.D. LAB BLOOD ADD-ON Performing Organization Address City/State/ZIP Code Phon e Number [facility] - [address] [place] [phone] [facility] [place] [address] Laboratories-[facility] 200 [facility] (ABNORMAL) CBC without Differential (12/13/2021 9:58 AM CDT)Only the most recent of4 resultswithin the time period is included. Patholo gist Method Time Signature Hemoglobin 12.5 11.6 - 12/13/2021 DTL 15.0 g/dL 10:44 AM CDT Hematocrit 39.5 35.5 - 12/13/2021 DTL 44.9 % 10:44 AM CDT Erythrocytes 4.47 3.92 - 12/13/2021 DTL 5.13 10:44 AM CDT x10(12)/L MCV 88.4 78.2 - 12/13/2021 DTL 97.9 fL 10:44 AM CDT RBC Distrib Width 13.9 12.2 - 12/13/2021 DTL 16.1 % 10:44 AM CDT Platelet Count 145 (L) 157 - 371 12/13/2021 DTL x10(9)/L 11:52 AM CDT Comment: Results confirmed by smear, no clumping or interference seen. Leukocytes 6.8 3.4 - 9.6 x10(9)/L 12/13/2021 11:52 AM CDT DTL Specimen Anatomical Collection Method Collection Time Receive d Time (Source) Location / / Volume Laterality Blood (Blood, 12/13/2021 9:58 AM 12/14/19 Venous) CDT 10:33 AM CDT Venkata Mayen M.D. LAB BLOOD ADD-ON Performing Organization Address City/State/ZIP Code Phon e Number [facility] - [address] [place], [place] [address] [facility] [place] [address] Laboratories-[facility] [address] [facility] (ABNORMAL) Basic Metabolic Panel (12/13/2021 9:58 AM CDT)Only the most recent of 5 resultswithin the time period is included. P athologist Signature Potassium, S 5.0 3.6 - 5.2 12/13/2021 DTL mmol/L 11:35 AM CDT Sodium, S 144 135 - 145 12/13/2021 DTL mmol/L 11:35 AM CDT Chloride, S 103 98 - 107 12/13/2021 DTL mmol/L 11:35 AM CDT Bicarbonate, S 31 (H) 22 - 29 12/13/2021 DTL mmol/L 11:35 AM CDT Anion Gap 10 7 - 15 12/13/2021 DTL 11:35 AM CDT BUN (Blood Urea 15 6 - 21 12/13/2021 DTL Nitrogen), S mg/dL 11:35 AM CDT Creatinine 0.88 0.59 - 12/13/2021 DTL 1.04 mg/dL 11:35 AM CDT Estimated GFR 69 >=60 12/13/2021 DTL (eGFR) mL/min/BSA 11:35 AM CDT Comment: Estimated GFR calculated using the 2020 CKD_EPI creatinine equation. Calcium, Total, S 9.6 8.8 - 10.2 mg/dL 12/13/2021 11:3 5 AM CDT DTL Glucose, S 101 70 - 140 mg/dL 12/13/2021 11:35 AM CDT DTL Specimen Anatomical Collection Method Collection Time Receive d Time (Source) Location / / Volume Laterality Blood (Blood, 12/13/2021 9:58 AM 12/14/19 Venous) CDT 10:44 AM CDT Venkata Mayen M.D. LAB BLOOD ADD-ON Performing Organization Address City/[facility]/ZIP Code Phon e Number [facility] - [address] [place], [place] [address] [facility] [place] [address] [employer] [facility] 200 [facility] ACT (Activated Clotting Time), POCT (11/22/2021 4:31 PM CDT)Only the most recent of3 resultswithin the time period is included. P athologist Signature Activated 139 84 - 139 11/22/2021 PCSM Clotting Time, sec 4:38 PM CDT POCT Specimen Anatomical Collection Method Collection Time Receive d Time (Source) Location / / Volume Laterality Blood 11/22/2021 4:31 PM 4:38 CDT PM CDT Unknown Provider LAB POCT ORDERABLES - DEVICE Performing Organization Address [facility] Phon e Number POC [facility] [address] [place], [place] [address] [place] [address] [facility] [address] [place] [address] PERCUTANEOUS CORONARY INTERVENTION, LASER, INTRAVASCULAR ULTRASOUND, CORONARY INTRAVASCULAR LITHOTRIPSY, STENT PLACEMENT (11/22/2021 4:17 PM CDT) Anatomical Region Laterality Modality X-Ray Angiography Specimen (Source) Anatomical Collection Method Collection Time Re ceived Time Location / / Volume Laterality 11/22/2021 1:50 PM CDT Narrative 11/22/2021 5:24 PM CDT For the complete report, see the Order-L evel Documents. PROCEDURE TYPES 1. ??PERCUTANEOUS CORONARY INTERVENTION 2. ??LASER 3. ??INTRAVASCULAR ULTRASOUND 4. ??CORONARY INTRAVASCULAR LITHOTRIPSY 5. ??CORONARY STENT PLACEMENT FINAL DIAGNOSIS 1. ??Unstable Angina 2. ??Severe coronary artery atherosclero sis 3. ??Coronary calcification 4. ??Coronary artery collateral circulat ion 5. ??Coronary in-stent restenosis 6. ??IVUS 7. ??Laser atherectomy 8. ??Intravascular lithotripsy 9. ??Successful percutaneous coronary in tervention with drug eluting stent PRE-PROCEDURE DIAGNOSIS 1. ??Atherosclerotic Heart Disease Of Na tive Coronary Artery Without Angina Pectoris CORONARY DIAGNOSTIC SUMMARY Coronary artery dominance is right. ??Th e ??left main coronary LAD coronary Circumflex coronary were not injected. The proximal right coronary artery is 99 % obstructed by a discrete lesion. The middle right coronary artery is 50% obstructed by a discrete lesion. The distal segment is large size, diseased. CORONARY INTERVENTION SUMMARY Successful intervention of the Proximal Right Coronary Artery. The preintervention stenosis was 99%. The post intervention stenosis was 0%. Devices used include PTCA, Stent, Laser, and Lithotripsy. IVUS SUMMARY An ultrasound study of the Proximal Righ t Coronary Artery was performed During Intervention. No complications. An ultrasound study of the Proximal Righ t Coronary Artery was performed During Intervention. No complications. An ultrasound study of the Proximal Righ t Coronary Artery was performed During Intervention. No complications. An ultrasound study of the Proximal Righ t Coronary Artery was performed Post Intervention. Stent Adequately Expanded. Stent Adequately Apposed. No complications. RADIATION DOSE DATA Procedure cumulative skin dose (mGy): 26 65.80 Procedure cumulative dose area product ( Gy-cm2): 122.50 Fluoro Time (Min): 43.68 CONTRAST DOSE DATA IOHEXOL 350 MG IODINE/ML INTRAVENOUS RAMIREZ UTION: 190mL For the complete report, see the Order-L evel Documents. Melinda Ochoa P.A.-C. CV CARDIAC CATH PROCEDURES Heparin Anti-Xa Assay (11/22/2021 5:12 AM CDT)Only the most recent of2 results within the time period is included. P athologist Signature Heparin 0.43 IU/mL 11/22/2021 DTL Anti-Xa, P 6:15 AM CDT Comment: UFH therapeutic range: ?? 0.30-0.70 IU/mL LMWH therapeutic range: 0.50-1.00 IU/mL 0.50-1.00 IU/mL for twice daily dosing ? ? 1.00-2.00 IU/mL for once daily dosing (sample obtained 4-6 hours following sub cutaneous injection) LMWH prophylactic range:0.10-0.30 IU/mL ----ADDITIONAL INFORMATION---- Heparin Anti-Xa is used to measure hepar in concentrations in patients receiving low molecular weig ht heparin (LMWH) or unfractionated heparin (UFH). Specimen Anatomical Collection Method Collection Time Receive d Time (Source) Location / / Volume Laterality Blood (Blood, 11/22/2021 5:12 AM 11/23/19 5:57 Venous) CDT AM CDT Tonja Hidalgo APRNNAguilarP. LAB BLOOD NON ADD-ON Performing Organization Address City/State/ZIP Code Phon e Number [facility] - [address] [place], [place] [address] [facility] [place] [address] Laboratories-[facility] 200 [facility] (ABNORMAL) CBC with Differential, Blood (11/21/2021 3:37 PM CDT) [facility] gist Method Time Signature Hemoglobin 11.8 11.6 - 11/21/2021 DTL 15.0 g/dL 4:32 PM CDT Hematocrit 36.3 35.5 - 11/21/2021 DTL 44.9 % 4:32 PM CDT Erythrocytes 4.22 3.92 - 11/21/2021 DTL 5.13 4:32 PM CDT x10(12)/L MCV 86.0 78.2 - 11/21/2021 DTL 97.9 fL 4:32 PM CDT RBC Distrib Width 13.5 12.2 - 11/21/2021 DTL 16.1 % 4:32 PM CDT Platelet Count 123 (L) 157 - 371 11/21/2021 DTL x10(9)/L 4:32 PM CDT Leukocytes 4.9 3.4 - 9.6 11/21/2021 DTL x10(9)/L 4:32 PM CDT Neutrophils 3.18 1.56 - 11/21/2021 DTL 6.45 4:32 PM CDT x10(9)/L Lymphocytes 1.45 0.95 - 11/21/2021 DTL 3.07 4:32 PM CDT x10(9)/L Monocytes 0.23 (L) 0.26 - 11/21/2021 DTL 0.81 4:32 PM CDT x10(9)/L Eosinophils 0.04 0.03 - 11/21/2021 DTL 0.48 4:32 PM CDT x10(9)/L Basophils <0.03 0.01 - 11/21/2021 DTL 0.08 4:32 PM CDT x10(9)/L Specimen Anatomical Collection Method Collection Time Receive d Time (Source) Location / / Volume Laterality Blood (Blood, 11/21/2021 3:37 PM 11/22/19 22 4:23 Venous) CDT PM CDT Melinda Ochoa P.A.-C. LAB BLOOD ADD-ON Performing Organization Address City/[facility] Phon e Number [facility] - [address] Magnesium (11/21/2021 3:37 PM CDT) P athologist Signature Magnesium, S 2.1 1.7 - 2.3 11/21/2021 DTL mg/dL 5:03 PM CDT Specimen Anatomical Collection Method Collection Time Receive d Time (Source) Location / / Volume Laterality Blood (Blood, 11/21/2021 3:37 PM 11/22/19 22 4:44 Venous) CDT PM CDT Melinda Ochoa P.A.-C. LAB BLOOD ADD-ON Performing Organization Address [facility] Phon e Number [facility] - [address] [place] [address] Echo - Intraprocedural Images Only (11/21/2021 1:05 PM CDT) Specimen (Source) Anatomical Location Collection Method / Collectio n Time Received Time / Laterality Volume Stevie Mohan M.D. CV ECHO PROCEDURES CORONARY ANGIOGRAPHY, RIGHT HEART CATHETERIZATION, LEFT HEART CATHETERIZATION (11/21/2021 12:27 PM CDT) Anatomical Region Laterality Modality X-Ray Angiography Specimen (Source) Anatomical Collection Method Collection Time Re ceived Time Location / / Volume Laterality 11/21/2021 10:57 AM CDT Narrative 11/28/2021 5:06 PM CDT For the complete report, see the Order-L evel Documents. PROCEDURE TYPES 1. ??CORONARY ANGIOGRAPHY 2. ??HEART CATHETERIZATION - RIGHT 3. ??HEART CATHETERIZATION - LEFT FINAL DIAGNOSIS 1. ??Critical coronary in-stent restenos is involving the ostial RCA 2. ??Borderline elevated PAWP 3. ??Normal PA pressures 4. ??Mildly reduced cardiac output PRE-PROCEDURE DIAGNOSIS 1. ??Impaired Fasting Glucose 2. ??Dyspnea Multifactorial 3. ??Regurgitation Mitral 4. ??Chronic Diastolic (Congestive) Hear t Failure (HCC) 5. ??Pain Chest 6. ??Ischemic Heart Chronic Disease HEMODYNAMICS SUMMARY BASELINE:Right filling pressures were lo w (RA 2) with a 5 mmHg gradient between IVC and SVC at level of the diaphragm (IVC 8, SVC 3). Mean PA pressure was normal at 19 mmHg with a borderline elevated PA WP (15 mmHg). Cardiac index was mildly r educed at 2.4 l/min/m2. Simultaneous echocardiogra phy showed moderate-severe MR. Transmitral gradient was 4 mmHg.POST SL NITRO:PAWP decreased to 6 mmHg while SVC was 4 mmHg. PA pressure was 14 mmHg while aortic pressure was 89/51. LVEDP was subsequently measured via diagnostic cor onary catheter and was low at 7 mmHg. SUMMARY:Findings are consistent with borderline elevated PAWP, normal PA pressures and mildly reduced cardiac output. CORONARY DIAGNOSTIC SUMMARY Coronary artery dominance is right. The proximal left anterior descending ar kitty is 20% obstructed by a discrete lesion. The proximal circumflex artery is 20% ob structed by a discrete lesion. The proximal right coronary artery is 99 % obstructed by a discrete lesion. The middle right coronary artery is 30% obstructed by a discrete lesion. The distal right coronary artery is 30% obstructed by a discrete lesion. Receives collaterals from the distal le ft anterior descending artery and second septal enamel applier. RADIATION DOSE DATA Procedure cumulative skin dose (mGy): 64 6.55 Procedure cumulative dose area product ( Gy-cm2): 32.96 Fluoro Time (Min): 17.61 CONTRAST DOSE DATA IOHEXOL 350 MG IODINE/ML INTRAVENOUS RAMIREZ UTION: 110mL For the complete report, see the Order-L evel Documents. Venkata Mayen M.D. CV CARDIAC CATH PROCEDURES SARS CoV-2 RNA, PCR, Varies Asymptomatic (11/20/2021 4:16 PM CDT)Only the most recent of2 resultswithin the time period is included. Patholo gist Method Time Signature SARS CoV-2 Swab, 11/20/2021 DTL RNA, PCR, Nasopharynx 11:14 PM Source CDT SARS CoV-2 Undetected Undetected 11/20/2021 DTL RNA, PCR 11:14 PM CDT Comment: SARS-CoV-2 RNA absent. This result does not rule out COVID-19 in the patient, as the sensitivity of the test depends o n the timing of the specimen collection and quality of the specimen. Result should be correlated with patient's history and clinical presentat ion. ----ADDITIONAL INFORMATION---- This RT-PCR test has received Emergency Use Authorization (EUA) by the U.S. Food and Drug Administration an d is used per head of store operations's instructions. Performance characteristics were verified by [facility] in a manner consistent with CLIA requirements. Visit the CDC website: https://www.cdc.g ov/coronavirus/ for the most recent guidelines on Coron avirus testing. Fact Sheet for Healthcare Providers: https://www.fda.gov/media/727626/downloa d Fact Sheet for Patients: https://www.fda.gov/media/498431/downloa d Specimen Anatomical Collection Method Collection Time Receive d Time (Source) Location / / Volume Laterality Varies 11/20/2021 4:16 PM 5:10 (Nasopharynx) CDT PM CDT Venkata Mayen M.D. LAB MICROBIOLOGY - GENERAL O RDERABLES Performing Organization Address City/State/ZIP Code Phon e Number [facility] - [address] [place] [phone] [facility] [place] [address] Laboratories-[address] Cardiac Angiogram Structure Morphology with IV Contrast (11/20/2021 2:39 PM CDT) Anatomical Region Laterality Modality Cardiac, Cardiovascular RST LOS, N/A Compute d Tomography, Computed Thoracic ARZ LOS, Cardiovascular FLA Dawit ography LOS Specimen (Source) Anatomical Collection Method Collection Time Re ceived Time Location / / Volume Laterality 11/20/2021 4:06 PM CDT Impressions 11/20/2021 4:31 PM CDT 1. ??Severe mitral annular calcification. 2. ??Coronary artery disease status post multivessel coronary artery stent placement. 3. ??Severe infrarenal abdominal aorta a therosclerotic calcification. Severe stenosis is present in the left common iliac artery. Moderate s tenosis is present in the right common iliac artery. 4. ??Conventional abdominal and pelvic v enous anatomy. No DVT in the abdomen or pelvis. 5. ??Lung edema and pleural effusions pr esent on 11/01/2021 have resolved. Please see TMVR procedure planning measu rements in the Findings section. Narrative 11/20/2021 4:31 PM CDT EXAM: ??CT CARDIAC ANGIOGRAM STRUCTURE MORPHOLOGY WITH IV CONTRAST, CT ABDOMEN PELVIS ANGIOGRAM WITH IV CONTRAST ECG-gated CT angiogram of the chest and heart, including independent workstation 3D reformations, performed per the pre-TMVR procedure hunter nning protocol. COMPARISON: CTA chest pulmonary embolus protocol 11/01/2021 CARDIAC FINDINGS: MITRAL VALVE/ANNULUS: ?? Leaflet anatomy: Mildly increased thickn ess. Leaflet calcification: Mild leaflet calc ification . Prolapse: No mitral valve prolapse. Annular dysjunction: Absent Mitral annular calcification: Severe isabell ral annular calcification. Subvalvular anatomy: 1 dominant posterom edial papillary muscle body and 2 dominant anterolateral papillary muscle bodies. Subvalvular calcification: Minimal calci fication of the posteromedial chordae tendineae. Other findings: Incomplete coaptation of the mitral valve leaflets during systole is compatible with mitral regurgitation. MITRAL ANNULAR MEASUREMENTS: Diastole (90% R-R): * ??Trigone-trigone (TT) distance = 18.2 mm * ??Perimeter (D-shaped) = 94.3mm * ??Inter-commissural (IC) distance = 31 .9mm * ??Septal-lateral (SL) distance = 34.3m m * ??Annulus area (D-shaped) = 863mm2 Systole (40% R-R): * ??Trigone-trigone (TT) distance = 20.3 mm * ??Perimeter (D-shaped) = 87.6mm * ??Inter-commissural (IC) distance = 25 .8mm * ??Septal-lateral (SL) distance = 30.5m m * ??Annulus area (D-shaped) = 756mm2 Systolic Jose-LVOT (29mm S3 valve prosthe sis; 20% atrial offset): * ??Area = 360mm2 * ??Perimeter = 115mm MAC SCORE: * ??Calcium thickness = ??3 point(s) * ??Calcium distribution = 2 point(s) * ??Trigone involvement: = 1 point(s) * ??Leaflet involvement: = 1 point(s) * ??Total MAC score = 7 points (less lilly n or equal to 3 points - mild; ??4-6 points - moderate; greater than or equal to 7 severe) SEPTAL MEASUREMENTS & AORTO-MITRAL ANGLE : * ??Interventricular septal thickness (s ystole) = 15mm * ??Interventricular septal thickness (d iastole) = 7mm * ??Aorto-mitral angle = 50 degrees CORONARY ARTERIES: Diffuse coronary artery calcifications. Status post multivessel coronary artery stent placement. OTHER CARDIAC FINDINGS: VENTRICLES Left ventricle: Enlarged left ventricle. Normal wall thickness. Qualitatively, left ventricular global systolic function is normal. No r esting perfusion defects. No resting regional wall motion abnormalities. Right ventricle: Normal right ventricula r size. Normal right ventricular wall thickness. Qualitatively, right ventricular global systolic function is normal. ATRIA Left atrium: Left atrium is severely enl arged. No thrombus. Right atrium: Right atrium is mildly enl arged. VALVES Aortic valve: Tricuspid aortic valve. Ao rtic valve leaflets are thickened. Normal aortic valve leaflet motion. PERICARDIUM Normal pericardial thickness. No pericar dial effusion. VASCULAR FINDINGS: Thoracic Aorta: Normal caliber thoracic aorta. There is mild calcification in the arch and descending thoracic aorta. ??No porcelai n aorta. ??Three-vessel left-sided aortic arch. Calcified plaque in the proximal arch vessels caus es minimal stenosis. ABDOMINAL AORTA Abdominal aorta caliber is normal. Sever e atherosclerotic plaque in the infrarenal abdominal aorta. VISCERAL ARTERIES Celiac artery: Moderate stenosis due to calcified plaque in the proximal celiac artery. Superior mesenteric artery: Minimal sten osis due to calcified plaque. Inferior mesenteric artery: Moderate lynda nosis due to calcified plaque at the origin. Right renal arteries: Single right renal artery. No plaque, stenosis, or aneurysm. Left renal arteries: Single left renal a rtery. Mild stenosis due to calcified plaque at the origin. ILIAC ARTERIES Right common iliac artery: Multifocal, u p to moderate, stenosis due to calcified plaque. Right internal iliac artery: Multifocal, up to mild, stenosis due to calcified plaque. Right external iliac artery: No plaque, stenosis, or aneurysm. Right femoral arteries: No plaque, steno sis, or aneurysm. Left common iliac artery: Severe stenosi s due to calcified plaque at the origin. Left internal iliac artery: Multifocal, up to mild, stenosis due to calcified plaque. Left external iliac artery: No plaque, s tenosis, or aneurysm. Left femoral arteries: Mild stenosis due to calcified plaque in the middle segment. VEINS Conventional abdominal and pelvic venous anatomy with right-sided inferior vena cava draining uninterrupted into the right atrium. No deep venous thrombosis is present in the abdomen or pelvis. ADDITIONAL FINDINGS: ?? Chest: Low-attenuation cyst in the left lobe of the thyroid measures 5 mm. There are no enlarged lymph nodes. No pleural effusion or lung edema is pre sent. Pleural effusions and lung edema present on 11/01/2021 have resolved. Mild radiation fibrosis i s present in the subpleural anterior right lung. No actionable lung nodules. Benign left low er lobe calcified granuloma. Small hiatal hernia. Abdomen and pelvis: Normal liver, gallbladder, spleen, pancr eas, and adrenals. The kidneys are similar in size and enha nce symmetrically. Nonobstructing calcified lower pole left kidney stone. Simple cyst is present in the lower pole of the left kidney. Low- attenuation lesion in the lower pole of the right kidney is to o small to characterize. Urinary bladder is incompletely distended. No adenopathy. No ascites. Normal caliber small and large intestine s. Normal appendix. Procedure Note Douglas Chavez M.D. - 11/20/2021 EXAM: CT CARDIAC ANGIOGRAM STRUCTURE MOR PHOLOGY WITH IV CONTRAST, CT ABDOMEN PELVIS ANGIOGRAM WITH IV CONTRAST ECG-gated CT angiogram of the chest and heart, including independent workstation 3D reformations, performed per the pre-TMVR procedure hunter nning protocol. COMPARISON: CTA chest pulmonary embolus protocol 11/01/2021 CARDIAC FINDINGS: MITRAL VALVE/ANNULUS: Leaflet anatomy: Mildly increased thickn ess. Leaflet calcification: Mild leaflet calc ification . Prolapse: No mitral valve prolapse. Annular dysjunction: Absent Mitral annular calcification: Severe isabell ral annular calcification. Subvalvular anatomy: 1 dominant posterom edial papillary muscle body and 2 dominant anterolateral papillary muscle bodies. Subvalvular calcification: Minimal calci fication of the posteromedial chordae tendineae. Other findings: Incomplete coaptation of the mitral valve leaflets during systole is compatible with mitral regurgitation. MITRAL ANNULAR MEASUREMENTS: Diastole (90% R-R): * Trigone-trigone (TT) distance = 18.2mm * Perimeter (D-shaped) = 94.3mm * Inter-commissural (IC) distance = 31.9 mm * Septal-lateral (SL) distance = 34.3mm * Annulus area (D-shaped) = 863mm2 Systole (40% R-R): * Trigone-trigone (TT) distance = 20.3mm * Perimeter (D-shaped) = 87.6mm * Inter-commissural (IC) distance = 25.8 mm * Septal-lateral (SL) distance = 30.5mm * Annulus area (D-shaped) = 756mm2 Systolic Jose-LVOT (29mm S3 valve prosthe sis; 20% atrial offset): * Area = 360mm2 * Perimeter = 115mm MAC SCORE: * Calcium thickness = 3 point(s) * Calcium distribution = 2 point(s) * Trigone involvement: = 1 point(s) * Leaflet involvement: = 1 point(s) * Total MAC score = 7 points (less than or equal to 3 points - mild; 4-6 points - moderate; greater than or equal to 7 severe) SEPTAL MEASUREMENTS & AORTO-MITRAL ANGLE : * Interventricular septal thickness (sys tole) = 15mm * Interventricular septal thickness (sada stole) = 7mm * Aorto-mitral angle = 50 degrees CORONARY ARTERIES: Diffuse coronary artery calcifications. Status post multivessel coronary artery stent placement. OTHER CARDIAC FINDINGS: VENTRICLES Left ventricle: Enlarged left ventricle. Normal wall thickness. Qualitatively, left ventricular global systolic function is normal. No r esting perfusion defects. No resting regional wall motion abnormalities. Right ventricle: Normal right ventricula r size. Normal right ventricular wall thickness. Qualitatively, right ventricular global systolic function is normal. ATRIA Left atrium: Left atrium is severely enl arged. No thrombus. Right atrium: Right atrium is mildly enl arged. VALVES Aortic valve: Tricuspid aortic valve. Ao rtic valve leaflets are thickened. Normal aortic valve leaflet motion. PERICARDIUM Normal pericardial thickness. No pericar dial effusion. VASCULAR FINDINGS: Thoracic Aorta: Normal caliber thoracic aorta. There is mild calcification in the arch and descending thoracic aorta. No porcelain aorta. Three-vessel left-sided aortic arch. Calcified plaque in the proximal arch vessels caus es minimal stenosis. ABDOMINAL AORTA Abdominal aorta caliber is normal. Sever e atherosclerotic plaque in the infrarenal abdominal aorta. VISCERAL ARTERIES Celiac artery: Moderate stenosis due to calcified plaque in the proximal celiac artery. Superior mesenteric artery: Minimal sten osis due to calcified plaque. Inferior mesenteric artery: Moderate lynda nosis due to calcified plaque at the origin. Right renal arteries: Single right renal artery. No plaque, stenosis, or aneurysm. Left renal arteries: Single left renal a rtery. Mild stenosis due to calcified plaque at the origin. ILIAC ARTERIES Right common iliac artery: Multifocal, u p to moderate, stenosis due to calcified plaque. Right internal iliac artery: Multifocal, up to mild, stenosis due to calcified plaque. Right external iliac artery: No plaque, stenosis, or aneurysm. Right femoral arteries: No plaque, steno sis, or aneurysm. Left common iliac artery: Severe stenosi s due to calcified plaque at the origin. Left internal iliac artery: Multifocal, up to mild, stenosis due to calcified plaque. Left external iliac artery: No plaque, s tenosis, or aneurysm. Left femoral arteries: Mild stenosis due to calcified plaque in the middle segment. VEINS Conventional abdominal and pelvic venous anatomy with right-sided inferior vena cava draining uninterrupted into the right atrium. No deep venous thrombosis is present in the abdomen or pelvis. ADDITIONAL FINDINGS: Chest: Low-attenuation cyst in the left lobe of the thyroid measures 5 mm. There are no enlarged lymph nodes. No pleural effusion or lung edema is pre sent. Pleural effusions and lung edema present on 11/01/2021 have resolved. Mild radiation fibrosis i s present in the subpleural anterior right lung. No actionable lung nodules. Benign left low er lobe calcified granuloma. Small hiatal hernia. Abdomen and pelvis: Normal liver, gallbladder, spleen, pancr eas, and adrenals. The kidneys are similar in size and enha nce symmetrically. Nonobstructing calcified lower pole left kidney stone. Simple cyst is present in the lower pole of the left kidney. Low- attenuation lesion in the lower pole of the right kidney is to o small to characterize. Urinary bladder is incompletely distended. No adenopathy. No ascites. Normal caliber small and large intestine s. Normal appendix. IMPRESSION: 1. Severe mitral annular calcification. 2. Coronary artery disease status post m ultivessel coronary artery stent placement. 3. Severe infrarenal abdominal aorta ath erosclerotic calcification. Severe stenosis is present in the left common iliac artery. Moderate s tenosis is present in the right common iliac artery. 4. Conventional abdominal and pelvic gian ous anatomy. No DVT in the abdomen or pelvis. 5. Lung edema and pleural effusions pres ent on 11/01/2021 have resolved. Please see [facility] procedure planning measu rements in the Findings section. Venkata RODRIGUEZ CT PROCEDURES CT Abdomen Pelvis Angiogram with IV Contrast (11/20/2021 2:39 PM CDT) Anatomical Region Laterality Modality Abdomen, Pelvis, Cardiovascular RST N/A Comp uted Tomography, Computed LOS, Abdominal ARZ LOS, Vascular Tomogra phy Interventional ARZ LOS, Abdominal FLA LOS, Vascular Interventional FLA LOS Specimen (Source) Anatomical Collection Method Collection Time Re ceived Time Location / / Volume Laterality 11/20/2021 2:28 PM CDT Impressions 11/20/2021 4:31 PM CDT 1. ??Severe mitral annular calcification. 2. ??Coronary artery disease status post multivessel coronary artery stent placement. 3. ??Severe infrarenal abdominal aorta a therosclerotic calcification. Severe stenosis is present in the left common iliac artery. Moderate s tenosis is present in the right common iliac artery. 4. ??Conventional abdominal and pelvic v enous anatomy. No DVT in the abdomen or pelvis. 5. ??Lung edema and pleural effusions pr esent on 11/01/2021 have resolved. Please see [facility] procedure planning measu rements in the Findings section. Narrative 11/20/2021 4:31 PM CDT EXAM: ??CT CARDIAC ANGIOGRAM STRUCTURE MORPHOLOGY WITH IV CONTRAST, CT ABDOMEN PELVIS ANGIOGRAM WITH IV CONTRAST ECG-gated CT angiogram of the chest and heart, including independent workstation 3D reformations, performed per the pre-TMVR procedure hunter nning protocol. COMPARISON: CTA chest pulmonary embolus protocol 11/01/2021 CARDIAC FINDINGS: MITRAL VALVE/ANNULUS: ?? Leaflet anatomy: Mildly increased thickn ess. Leaflet calcification: Mild leaflet calc ification . Prolapse: No mitral valve prolapse. Annular dysjunction: Absent Mitral annular calcification: Severe isabell ral annular calcification. Subvalvular anatomy: 1 dominant posterom edial papillary muscle body and 2 dominant anterolateral papillary muscle bodies. Subvalvular calcification: Minimal calci fication of the posteromedial chordae tendineae. Other findings: Incomplete coaptation of the mitral valve leaflets during systole is compatible with mitral regurgitation. MITRAL ANNULAR MEASUREMENTS: Diastole (90% R-R): * ??Trigone-trigone (TT) distance = 18.2 mm * ??Perimeter (D-shaped) = 94.3mm * ??Inter-commissural (IC) distance = 31 .9mm * ??Septal-lateral (SL) distance = 34.3m m * ??Annulus area (D-shaped) = 863mm2 Systole (40% R-R): * ??Trigone-trigone (TT) distance = 20.3 mm * ??Perimeter (D-shaped) = 87.6mm * ??Inter-commissural (IC) distance = 25 .8mm * ??Septal-lateral (SL) distance = 30.5m m * ??Annulus area (D-shaped) = 756mm2 Systolic Jose-LVOT (29mm S3 valve prosthe sis; 20% atrial offset): * ??Area = 360mm2 * ??Perimeter = 115mm MAC SCORE: * ??Calcium thickness = ??3 point(s) * ??Calcium distribution = 2 point(s) * ??Trigone involvement: = 1 point(s) * ??Leaflet involvement: = 1 point(s) * ??Total MAC score = 7 points (less lilly n or equal to 3 points - mild; ??4-6 points - moderate; greater than or equal to 7 severe) SEPTAL MEASUREMENTS & AORTO-MITRAL ANGLE : * ??Interventricular septal thickness (s ystole) = 15mm * ??Interventricular septal thickness (d iastole) = 7mm * ??Aorto-mitral angle = 50 degrees CORONARY ARTERIES: Diffuse coronary artery calcifications. Status post multivessel coronary artery stent placement. OTHER CARDIAC FINDINGS: VENTRICLES Left ventricle: Enlarged left ventricle. Normal wall thickness. Qualitatively, left ventricular global systolic function is normal. No r esting perfusion defects. No resting regional wall motion abnormalities. Right ventricle: Normal right ventricula r size. Normal right ventricular wall thickness. Qualitatively, right ventricular global systolic function is normal. ATRIA Left atrium: Left atrium is severely enl arged. No thrombus. Right atrium: Right atrium is mildly enl arged. VALVES Aortic valve: Tricuspid aortic valve. Ao rtic valve leaflets are thickened. Normal aortic valve leaflet motion. PERICARDIUM Normal pericardial thickness. No pericar dial effusion. VASCULAR FINDINGS: Thoracic Aorta: Normal caliber thoracic aorta. There is mild calcification in the arch and descending thoracic aorta. ??No porcelai n aorta. ??Three-vessel left-sided aortic arch. Calcified plaque in the proximal arch vessels caus es minimal stenosis. ABDOMINAL AORTA Abdominal aorta caliber is normal. Sever e atherosclerotic plaque in the infrarenal abdominal aorta. VISCERAL ARTERIES Celiac artery: Moderate stenosis due to calcified plaque in the proximal celiac artery. Superior mesenteric artery: Minimal sten osis due to calcified plaque. Inferior mesenteric artery: Moderate lynda nosis due to calcified plaque at the origin. Right renal arteries: Single right renal artery. No plaque, stenosis, or aneurysm. Left renal arteries: Single left renal a rtery. Mild stenosis due to calcified plaque at the origin. ILIAC ARTERIES Right common iliac artery: Multifocal, u p to moderate, stenosis due to calcified plaque. Right internal iliac artery: Multifocal, up to mild, stenosis due to calcified plaque. Right external iliac artery: No plaque, stenosis, or aneurysm. Right femoral arteries: No plaque, steno sis, or aneurysm. Left common iliac artery: Severe stenosi s due to calcified plaque at the origin. Left internal iliac artery: Multifocal, up to mild, stenosis due to calcified plaque. Left external iliac artery: No plaque, s tenosis, or aneurysm. Left femoral arteries: Mild stenosis due to calcified plaque in the middle segment. VEINS Conventional abdominal and pelvic venous anatomy with right-sided inferior vena cava draining uninterrupted into the right atrium. No deep venous thrombosis is present in the abdomen or pelvis. ADDITIONAL FINDINGS: ?? Chest: Low-attenuation cyst in the left lobe of the thyroid measures 5 mm. There are no enlarged lymph nodes. No pleural effusion or lung edema is pre sent. Pleural effusions and lung edema present on 11/01/2021 have resolved. Mild radiation fibrosis i s present in the subpleural anterior right lung. No actionable lung nodules. Benign left low er lobe calcified granuloma. Small hiatal hernia. Abdomen and pelvis: Normal liver, gallbladder, spleen, pancr eas, and adrenals. The kidneys are similar in size and enha nce symmetrically. Nonobstructing calcified lower pole left kidney stone. Simple cyst is present in the lower pole of the left kidney. Low- attenuation lesion in the lower pole of the right kidney is to o small to characterize. Urinary bladder is incompletely distended. No adenopathy. No ascites. Normal caliber small and large intestine s. Normal appendix. Procedure Note Douglas Chavez M.D. - 11/20/2021 EXAM: CT CARDIAC ANGIOGRAM STRUCTURE MOR PHOLOGY WITH IV CONTRAST, CT ABDOMEN PELVIS ANGIOGRAM WITH IV CONTRAST ECG-gated CT angiogram of the chest and heart, including independent workstation 3D reformations, performed per the pre-[facility] procedure hunter nning protocol. COMPARISON: CTA chest pulmonary embolus protocol 11/01/2021 CARDIAC FINDINGS: MITRAL VALVE/ANNULUS: Leaflet anatomy: Mildly increased thickn ess. Leaflet calcification: Mild leaflet calc ification . Prolapse: No mitral valve prolapse. Annular dysjunction: Absent Mitral annular calcification: Severe isabell ral annular calcification. Subvalvular anatomy: 1 dominant posterom edial papillary muscle body and 2 dominant anterolateral papillary muscle bodies. Subvalvular calcification: Minimal calci fication of the posteromedial chordae tendineae. Other findings: Incomplete coaptation of the mitral valve leaflets during systole is compatible with mitral regurgitation. MITRAL ANNULAR MEASUREMENTS: Diastole (90% R-R): * Trigone-trigone (TT) distance = 18.2mm * Perimeter (D-shaped) = 94.3mm * Inter-commissural (IC) distance = 31.9 mm * Septal-lateral (SL) distance = 34.3mm * Annulus area (D-shaped) = 863mm2 Systole (40% R-R): * Trigone-trigone (TT) distance = 20.3mm * Perimeter (D-shaped) = 87.6mm * Inter-commissural (IC) distance = 25.8 mm * Septal-lateral (SL) distance = 30.5mm * Annulus area (D-shaped) = 756mm2 Systolic Jose-LVOT (29mm S3 valve prosthe sis; 20% atrial offset): * Area = 360mm2 * Perimeter = 115mm MAC SCORE: * Calcium thickness = 3 point(s) * Calcium distribution = 2 point(s) * Trigone involvement: = 1 point(s) * Leaflet involvement: = 1 point(s) * Total MAC score = 7 points (less than or equal to 3 points - mild; 4-6 points - moderate; greater than or equal to 7 severe) SEPTAL MEASUREMENTS & AORTO-MITRAL ANGLE : * Interventricular septal thickness (sys tole) = 15mm * Interventricular septal thickness (sada stole) = 7mm * Aorto-mitral angle = 50 degrees CORONARY ARTERIES: Diffuse coronary artery calcifications. Status post multivessel coronary artery stent placement. OTHER CARDIAC FINDINGS: VENTRICLES Left ventricle: Enlarged left ventricle. Normal wall thickness. Qualitatively, left ventricular global systolic function is normal. No r esting perfusion defects. No resting regional wall motion abnormalities. Right ventricle: Normal right ventricula r size. Normal right ventricular wall thickness. Qualitatively, right ventricular global systolic function is normal. ATRIA Left atrium: Left atrium is severely enl arged. No thrombus. Right atrium: Right atrium is mildly enl arged. VALVES Aortic valve: Tricuspid aortic valve. Ao rtic valve leaflets are thickened. Normal aortic valve leaflet motion. PERICARDIUM Normal pericardial thickness. No pericar dial effusion. VASCULAR FINDINGS: Thoracic Aorta: Normal caliber thoracic aorta. There is mild calcification in the arch and descending thoracic aorta. No porcelain aorta. Three-vessel left-sided aortic arch. Calcified plaque in the proximal arch vessels caus es minimal stenosis. ABDOMINAL AORTA Abdominal aorta caliber is normal. Sever e atherosclerotic plaque in the infrarenal abdominal aorta. VISCERAL ARTERIES Celiac artery: Moderate stenosis due to calcified plaque in the proximal celiac artery. Superior mesenteric artery: Minimal sten osis due to calcified plaque. Inferior mesenteric artery: Moderate lynda nosis due to calcified plaque at the origin. Right renal arteries: Single right renal artery. No plaque, stenosis, or aneurysm. Left renal arteries: Single left renal a rtery. Mild stenosis due to calcified plaque at the origin. ILIAC ARTERIES Right common iliac artery: Multifocal, u p to moderate, stenosis due to calcified plaque. Right internal iliac artery: Multifocal, up to mild, stenosis due to calcified plaque. Right external iliac artery: No plaque, stenosis, or aneurysm. Right femoral arteries: No plaque, steno sis, or aneurysm. Left common iliac artery: Severe stenosi s due to calcified plaque at the origin. Left internal iliac artery: Multifocal, up to mild, stenosis due to calcified plaque. Left external iliac artery: No plaque, s tenosis, or aneurysm. Left femoral arteries: Mild stenosis due to calcified plaque in the middle segment. VEINS Conventional abdominal and pelvic venous anatomy with right-sided inferior vena cava draining uninterrupted into the right atrium. No deep venous thrombosis is present in the abdomen or pelvis. ADDITIONAL FINDINGS: Chest: Low-attenuation cyst in the left lobe of the thyroid measures 5 mm. There are no enlarged lymph nodes. No pleural effusion or lung edema is pre sent. Pleural effusions and lung edema present on 11/01/2021 have resolved. Mild radiation fibrosis i s present in the subpleural anterior right lung. No actionable lung nodules. Benign left low er lobe calcified granuloma. Small hiatal hernia. Abdomen and pelvis: Normal liver, gallbladder, spleen, pancr eas, and adrenals. The kidneys are similar in size and enha nce symmetrically. Nonobstructing calcified lower pole left kidney stone. Simple cyst is present in the lower pole of the left kidney. Low- attenuation lesion in the lower pole of the right kidney is to o small to characterize. Urinary bladder is incompletely distended. No adenopathy. No ascites. Normal caliber small and large intestine s. Normal appendix. IMPRESSION: 1. Severe mitral annular calcification. 2. Coronary artery disease status post m ultivessel coronary artery stent placement. 3. Severe infrarenal abdominal aorta ath erosclerotic calcification. Severe stenosis is present in the left common iliac artery. Moderate s tenosis is present in the right common iliac artery. 4. Conventional abdominal and pelvic gian ous anatomy. No DVT in the abdomen or pelvis. 5. Lung edema and pleural effusions pres ent on 11/01/2021 have resolved. Please see [facility] procedure planning measu rements in the Findings section. Venkata RODRIGUEZ CT PROCEDURES DX Chest AP or PA and Lateral 2 Views (11/14/2021 3:55 PM CDT) Anatomical Region Laterality Modality Chest, Thoracic RST LOS, Thoracic ARZ LOS, Thoracic N/A Digital Radiography FLA LOS Specimen (Source) Anatomical Collection Method Collection Time Re ceived Time Location / / Volume Laterality 11/14/2021 3:59 PM CDT Impressions 11/14/2021 4:00 PM CDT Mitral annulus calcification. Aortic calcification. Heart size within normal limits. No consolidation or effusion. Degenerative changes in the thoracic spine. Narrative 11/14/2021 4:00 PM CDT EXAM: ??DX CHEST AP OR PA AND LATERAL 2 VIEWS Procedure Note Chris Marina M.D. - 11/14/2021Forma tting of this note might be different from the original. EXAM: DX CHEST AP OR PA AND LATERAL 2 EWS IMPRESSION: Mitral annulus calcification. Aortic julee cification. Heart size within normal limits. No consolidation or effusion. Degenerative changes in the thoracic spine. Venkata Mayen M.D. [facility] PROCE DURES ([facility]) 2D WITH COLOR, LIMITED DOPPLER AND CONTRAST (11/14/2021 2:22 PM CDT) P athologist Signature Ejection 60 MC CV EIMS Fraction Proximal 32 MC CV EIMS Ascending Aorta MV mean 3 MC CV EIMS gradient Anatomical Region Laterality Modality Echocardiography Specimen (Source) Anatomical Collection Method Collection Time Re ceived Time Location / / Volume Laterality 11/14/2021 12:49 PM CDT Impressions 11/14/2021 4:43 PM CDT PRE-SEDATION ASSESSMENT & CONSENT (performed immediately prior to the start of the procedure): The goals, risks and alternatives to moderate sedation and the transesophageal echo were explained to t he patient, questions were answered and consent was given to proceed. The physician reviewed the patient's history, medication list, allergies, and review of systems, and the findings as documented in the loop tacker and also performed a pertinent examination including a heart, airway and lung assessment. Mallampati Assessment: As do cumented in the RN pre-procedure assessment. Sedation plan: Transesophageal echo - moderate sedation. ASA physical status score: Class III. The patient's identity and all needed equipment were confirmed and a final confirmatory pause was performed by the team immediately prior to start. PROCEDURAL ECHO FINDINGS: Transesophageal echocardiogram performed at the request of the primary social services. Adult probe inserted without difficulty. LEFT VENTRICLE:Borderline enlarged left ventricular chamber size by visual estimate. Estimated left ventricular ejection fraction 60%. No regional wall motion abnormalities. RIGHT VENTRICLE:Normal right ventricular chamber size by visual estimate. Normal right ventricular systolic function. ATRIA:Enlarged left atrial size by visua l estimate. Normal left atrial appendage. No left atrial appendage thrombus. Enlarged right atrial size by visual estimate. CARDIAC VALVES:Trileaflet aortic valve. Sclerotic aortic valve. No aortic valve regurgitation. Calcified mitral valve. Calcified mitral annulus , posterior leaflet more than anterior. Bulky calcium on m edial aspect restricting P3 motion Calci fied mitral valve chordae. Moderate mitral valve reg urgitation (at least two jets) Mitral valve diastolic mean Doppler gradient 3 mmHg (heart rate 74 BPM). Mitral valve area by planimetry 4 cm2. Normal pulmonary valve. No pulmonary valve regurgitation. Normal tricuspid valve. Trivial tricuspid valve regurgitation. OTHER ECHO FINDINGS:Normal pulmonary vei n Doppler flow pattern. Normal aortic arch. Focal moderate immobile (atheroma 3-5 mm thickness without ulceration) atherosclerosis of the descending thoracic aort a. Normally connected pulmonary veins. P ulmonary artery bifurcation is normal. Normal sup erior vena cava. Agitated saline injection(s) performed during sedation. No [id number] shunt at atrial level at rest or with Valsalva release. No intracardiac mass or thrombus identified. No ??pericardial effusion. PROCEDURE NOTES: Procedure per formed with appropriate level of sedation. A trained independent observer assisted with monitoring the patient's level of consciousness and physiologic status thr oughout the procedure, see nursing docum entation. The patient tolerated the sedation and p rocedure well and was released awake, alert, and in good condition. Transesophageal echocardiogram completed without complications. See Sedation Narrator or other pertinent record in [facility] for additional procedure and sedation information. Physician sign ature for procedural medications and patient discharge when DC criteria met. For the complete report, see the Order-L evel Documents. Narrative 11/14/2021 4:43 PM CDT For the complete report, see the Order-Level Documents. Final Impressions 1. Calcified mitral annulus with focal c alcification of the P3 scallop with restricted mobility (best appreciated in 3D, clip 42, 97). 2. Moderate mitral valve regurgitation ( two jets; systolic blood pressure 110- 120 mmHg at the time of the study) 3. Mild calcific mitral stenosis. Valve area 4.0 cm2 by planimetry, mean diastolic gradient 3 mmHg (heart rate 74 bpm). 4. Estimated left ventricular ejection f raction 60%. 5. Normal right ventricular systolic fun ction. 6. No left atrial appendage thrombus. 7. No [id number] shunt at atrial leve l at rest or with Valsalva release. 8. Focal moderate immobile (atheroma 3-5 mm thickness without ulceration) atherosclerosis of the descending thoracic aorta. Procedure Note Grant Miranda M.D. - 11/14/2021Forma tting of this note might be different from the original. For the complete report, see the Order-L evel Documents. Final Impressions 1. Calcified mitral annulus with focal c alcification of the P3 scallop with restricted mobility (best appreciated in 3D, clip 42, 97). 2. Moderate mitral valve regurgitation ( two jets; systolic blood pressure 110- 120 mmHg at the time of the study) 3. Mild calcific mitral stenosis. Valve area 4.0 cm2 by planimetry, mean diastolic gradient 3 mmHg (heart rate 74 bpm). 4. Estimated left ventricular ejection f raction 60%. 5. Normal right ventricular systolic fun ction. 6. No left atrial appendage thrombus. 7. No [id number] shunt at atrial leve l at rest or with Valsalva release. 8. Focal moderate immobile (atheroma 3-5 mm thickness without ulceration) atherosclerosis of the descending thoracic aorta. Findings PRE-SEDATION ASSESSMENT & CONSENT (perfo rmed immediately prior to the start of the procedure): The goals, risks and alternatives to moderate sedation and the transesophageal echo were explained to the patient, questions were answered and consent was given to proceed. The physician reviewed the patient's history, medication list, allergies, and review of systems, and the findings as documented in the loop tacker and also performed a pertinent examination includ ing a heart, airway and lung assessment. Mallampati Assessment: As documented in the RN pre-procedure assessment. Sedation plan: Transesophageal echo - moderate sedation. ASA physical status score: Class III. The pa shellint's identity and all needed equipment were confirmed and a final confirmatory pause was performed by the team immediately prior to start. PROCEDURAL ECHO FINDINGS: Transesophageal echocardiogram performed at the request of the primary social services. Adult probe inserted without difficulty. LEFT VENTRICLE:Borderline enlarged left ventricular chamber size by visual estimate. Estimated left ventricular ejection fraction 60%. No regional wall motion abnormalities. RIGHT VENTRICLE:Normal right ventricular chamber size by visual estimate. Normal right ventricular systolic function. ATRIA:Enlarged left atrial size by visua l estimate. Normal left atrial appendage. No left atrial appendage thrombus. Enlarged right atrial size by visual estimate. CARDIAC VALVES:Trileaflet aortic valve. Sclerotic aortic valve. No aortic valve regurgitation. Calcified mitral valve. Calcified mitral annulus , posterior leaflet more than anterior. Bulky calcium on medial aspect restricting P3 motion Calcified mitral v alve chordae. Moderate mitral valve regurgitation (at least two jets) Mitral valve diastolic mean Doppler gradient 3 mmHg (heart rate 74 BPM). Mitral valve area by planimetry 4 cm2. Normal pulmonary valve . No pulmonary valve regurgitation. Normal tricuspid valve. Trivial tricuspid valve regurgitation. OTHER ECHO FINDINGS:Normal pulmonary vei n Doppler flow pattern. Normal aortic arch. Focal moderate immobile (atheroma 3-5 mm thickness without ulceration) atherosclerosis of the descending thoracic aorta. Normally connected pulmonary veins. Pulmonary art paco bifurcation is normal. Normal superior vena cava. Agitated saline injection(s) performed during sedation. No [id number] shunt at atrial level at rest or with Valsalva release. No intracardiac mass or thrombu s identified. No pericardial effusion. PROCEDURE NOTES: Procedure performed with appropriate level of sedation. A trained independent observer assisted with monitoring the patient's level of consciousness and phy siologic status throughout the procedure, see nursing documentation. The patient tolerated the sedation and procedure well and was released awake, alert, and in good condition. Transesophageal echocardiogram completed without complications. See Sedation Narrator or other pertinent record in [facility] for additional procedure and sedation information. Physician signature for procedural medications and patient discharge when D C criteria met. For the complete report, see the Order-L evel Documents. Venkata Mayen M.D. CV ECHO PROCEDURES (TTE) 2D ECHO DOPPLER COLOR (11/12/2021 1:17 PM CDT) Analysis Performed At [facility] Time Signature Ejection Fraction 65 MC CV EIMS LV End-Diastolic 54 MC CV EIMS Diameter LV End-Systolic 36 MC CV EIMS Diameter LV End-Diastolic 146 MC CV EIMS Volume LV End-Systolic 61 MC CV EIMS Volume MV E Velocity 1.10 MC CV EIMS MV A Velocity 1.10 MC CV EIMS MV E/A 1 MC CV EIMS MV e' Velocity 0.06 MC CV EIMS Medial MV e' Velocity 0.10 MC CV EIMS Lateral MV E/e' Medial 18.30 MC CV EIMS MV E/e' Lateral 11 MC CV EIMS Left ventricular 39 MC CV EIMS stroke volume index Cardiac Output 5.72 MC CV EIMS Cardiac Index 2.89 MC CV EIMS Tricuspid Annular 0.19 MC CV EIMS S? TR Vmax 2.90 MC CV EIMS RA Pressure 5 MC CV EIMS RV Systolic 39 MC CV EIMS Pressure AV mean gradient 7 MC CV EIMS Aortic valve area 1.93 MC CV EIMS Aortic Valve Area 0.98 MC CV EIMS Index Aortic Valve 0.62 MC CV EIMS Dimensionless Index MV mean gradient 4 MC CV EIMS MV regurgitant 42 MC CV EIMS volume Aortic Valve 1.90 MC CV EIMS Systolic Peak Velocity Anatomical Region Laterality Modality Echocardiography Specimen (Source) Anatomical Collection Method Collection Time Re ceived Time Location / / Volume Laterality 11/12/2021 12:19 PM CDT Impressions 11/12/2021 3:06 PM CDT Echocardiogram performed per left ventricular function protocol. Last full echocardiogram performed 10/03/2020. LEFT VENTRICLE:Mildly enlarged left vent ricular chamber size. Calculated 3-D volumetric left ventricular ejection fraction 65%. No regional wall motion abnormalities. Indeterminate left ventricular diastolic function. RIGHT VENTRICLE:Normal right ventricular chamber size. Normal right ventricular systolic function. Estimated right ventricular systolic pressure 39 mmHg (right atrial pressure of 5 mmHg). ATRIA:Severely enlarged left atrial size by visual estimate. Enlarged right atrial size. CARDIAC VALVES:Trileaflet aortic valve. Mild ??aortic valve stenosis. Aortic valve systolic mean Doppler gradient 7 mmHg. Aortic valve area by Doppler 1.93 cm2. No aortic valve regurgitation. Mild ??mitral valve stenosis. Calcified mitral annulus. Calcified mitral valve chordae. Mitral v alve diastolic mean Doppler gradient 4 mmHg (heart rate 71 BPM). Mitral valve area by planimetry 2.7 cm2. Moderate mitral valve regurgitation. Mitral regurgitatio n ERO (PISA) 0.25 cm2. Mitral regurgitan t volume (PISA) 42 ml. Normal tricuspid valve. Mi ld tricuspid valve regurgitation. OTHER ECHO FINDINGS:Normal inferior vena cava size with normal inspiratory collapse (>50%). No intracardiac mass or thrombus, but the left atrial appendage cannot be visualized adequately with transt horacic echo to exclude thrombus in this location. No ?? pericardial effusion. LUNG FINDINGS:Lung ultrasound performed. Mild interstitial process (1-3 B- line(s) per zone) in both lungs (mixed patterns). Interstitial process in right lung in a focal distribution (anterior view, non-cardiogenic process). No ??pleural effusion. For the complete report, see the Order-L Fididelel Documents. Narrative 11/12/2021 3:06 PM CDT For the complete report, see the Order-Level Documents. Final Impressions 1. Moderate mitral valve regurgitation, ERO (PISA) 0.25 cm2, regurgitant volume (PISA) 42 ml. 2. Calcified mitral annulus and mitral v alve chordae. ??Bulky medial and posterior mitral annular calcification. ??Nodular calcium along the anterior annulus. ?? Mitral valve mean diastolic gradient 4 m m Hg (HR 71 bpm), valve area by planimet ry 2.7 cm2. 3. Mildly enlarged left ventricular thelma amilcar size, no regional wall motion abnormalities, calculated 3-D volumetric ejection fraction 65%. 4. Mild ??aortic valve stenosis, systoli c mean Doppler gradient 7 mmHg, valve area by Doppler 1.93 cm2. 5. Severely enlarged left atrial size by visual estimate. 6. Normal right ventricular chamber size , normal systolic function, estimated right ventricular systolic pressure 39 mmHg (right atrial pressure of 5 mmHg). 7. Mild tricuspid valve regurgitation. 8. Normal inferior vena cava size with n ormal inspiratory collapse (>50%). 9. No ??pericardial effusion. 10. LUNG FINDINGS: 11. Mild interstitial process (1-3 B-berenice e(s) per zone) in both lungs (mixed patterns). ??Very mild edema in the lateral views at rest. 12. Interstitial process in right lung i n a focal distribution (anterior view, non-cardiogenic process). 13. No ??pleural effusion. 14. Compared to the report of 05/09/2021 the following changes have occurred: The gradient through the mitral valve is lower at a lower heart rate (was 6 mmHg). Mild left ventricular enlargement present . Estimated right ventricular systolic p ressure is lower. ?? Quantification of mitral and t ricuspid regurgitation is similar. ??Side by side comparison of images performed. Procedure Note Bruna Sun M.D., Ph.D. - 2 For the complete report, see the Order-L evel Documents. Final Impressions 1. Moderate mitral valve regurgitation, ERO (PISA) 0.25 cm2, regurgitant volume (PISA) 42 ml. 2. Calcified mitral annulus and mitral v alve chordae. Bulky medial and posterior mitral annular calcification. Nodular calcium along the anterior annulus. Mitral valve mean diastolic gradient 4 mm Hg (HR 71 bpm), valve area by planimetry 2.7 cm2. 3. Mildly enlarged left ventricular thelma amilcar size, no regional wall motion abnormalities, calculated 3-D volumetric ejection fraction 65%. 4. Mild aortic valve stenosis, systolic mean Doppler gradient 7 mmHg, valve area by Doppler 1.93 cm2. 5. Severely enlarged left atrial size by visual estimate. 6. Normal right ventricular chamber size , normal systolic function, estimated right ventricular systolic pressure 39 mmHg (right atrial pressure of 5 mmHg). 7. Mild tricuspid valve regurgitation. 8. Normal inferior vena cava size with n ormal inspiratory collapse (>50%). 9. No pericardial effusion. 10. LUNG FINDINGS: 11. Mild interstitial process (1-3 B-berenice e(s) per zone) in both lungs (mixed patterns). Very mild edema in the lateral views at rest. 12. Interstitial process in right lung i n a focal distribution (anterior view, non-cardiogenic process). 13. No pleural effusion. 14. Compared to the report of 05/09/2021 the following changes have occurred: The gradient through the mitral valve is lower at a lower heart rate (was 6 mmHg). Mild left ventricular enlargement present. Estimated right ventricular systolic pressure is l ower. Quantification of mitral and tricuspid regurgitation is similar. Side by side comparison of images performed. Findings Echocardiogram performed per left ventri cular function protocol. Last full echocardiogram performed 10/03/2020. LEFT VENTRICLE:Mildly enlarged left vent ricular chamber size. Calculated 3-D volumetric left ventricular ejection fraction 65%. No regional wall motion abnormalities. Indeterminate left ventricular diastolic function. RIGHT VENTRICLE:Normal right ventricular chamber size. Normal right ventricular systolic function. Estimated right ventricular systolic pressure 39 mmHg (right atrial pressure of 5 mmHg). ATRIA:Severely enlarged left atrial size by visual estimate. Enlarged right atrial size. CARDIAC VALVES:Trileaflet aortic valve. Mild aortic valve stenosis. Aortic valve systolic mean Doppler gradient 7 mmHg. Aortic valve area by Doppler 1.93 cm2. No aortic valve regurgitation. Mild mitral valve stenosis. Calcified mitral annulus. Calc ified mitral valve chordae. Mitral valve diastolic mean Doppler gradient 4 mmHg (heart rate 71 BPM). Mitral valve area by planimetry 2.7 cm2. Moderate mitral valve regurgitation. Mitral regurgitation ERO (PISA) 0.25 cm2 . Mitral regurgitant volume (PISA) 42 ml. Normal tricuspid valve. Mild tricuspid valve regurgitation. OTHER ECHO FINDINGS:Normal inferior vena cava size with normal inspiratory collapse (>50%). No intracardiac mass or thrombus, but the left atrial appendage cannot be visualized adequately with transthoracic echo to exclude thrombus in this location. No pe ricardial effusion. LUNG FINDINGS:Lung ultrasound performed. Mild interstitial process (1-3 B- line(s) per zone) in both lungs (mixed patterns). Interstitial process in right lung in a focal distribution (anterior view, non-cardiogenic process). No pleural effusion. For the complete report, see the Order-L evel Documents. Venkata Mayen M.D. CV ECHO PROCEDURES (ABNORMAL) Lipid Panel (11/12/2021 8:59 AM CDT) athologist Signature Triglycerides 68 mg/dL 11/12/2021 DTL 10:11 AM CDT Comment: ----REFERENCE VALUE---- Normal: <150 mg/dL Borderline High: 150-199 mg/dL High: 200-499 mg/dL Very High: > or =500 mg/dL Cholesterol, Total 121 mg/dL 11/12/2021 10:11 AM C DT DTL Comment: ----REFERENCE VALUE---- Desirable: < 200 mg/dL Borderline High: 200 - 239 mg/dL High: > or = 240 mg/dL Cholesterol, LDL, Calculated 61 mg/dL 11/12/2021 10:11 AM CDT DTL Comment: ----REFERENCE VALUE---- Desirable: <100 mg/dL Above Desirable: 100-129 mg/dL Borderline High: 130-159 mg/dL High: 160-189 mg/dL Very High: >=190 mg/dL ----ADDITIONAL INFORMATION---- LDL cholesterol calculated using the Francisco/NIH equation. Cholesterol, HDL, S 46 (L) >=50 mg/dL 11/12/2021 10:11 AM CDT DTL Cholesterol, Non-HDL, Calculated 75 mg/dL 022 10:11 AM CDT DTL Comment: ----REFERENCE VALUE---- Desirable: <130 mg/dL Above Desirable: 130-159 mg/dL Borderline High: 160-189 mg/dL High: 190-219 mg/dL Very High: > or =220 mg/dL Fasting (8 HR or more) Unknown 11/12/2021 9:46 A M CDT DTL Specimen Anatomical Collection Method Collection Time Receive d Time (Source) Location / / Volume Laterality Blood (Blood, 11/12/2021 8:59 AM 11/13/19 9:46 Venous) CDT AM CDT Venkata Mayen M.D. LAB BLOOD ADD-ON Performing Organization Address [facility] Phon e Number [facility] - [address] Prothrombin Time (PT) (11/12/2021 8:59 AM CDT) P athologist Signature Prothrombin 11.5 9.4 - 12.5 11/12/2021 DTL Time, P sec 9:49 AM CDT INR 1.0 0.9 - 1.1 11/12/2021 DT 9:49 AM CDT Comment: ----ADDITIONAL INFORMATION---- Standard intensity warfarin therapeutic range: 2.0 to 3.0 ?? High intensity warfarin therapeutic rang e: 2.5 to 3.5 Specimen Anatomical Collection Method Collection Time Receive d Time (Source) Location / / Volume Laterality Blood (Blood, 11/12/2021 8:59 AM 11/13/19 9:25 Venous) CDT AM CDT Venkata Mayen M.D. LAB BLOOD ADD-ON Performing Organization Address [facility] Phon e Number [facility] - [address] S-TSH (Thyroid-Stimulating Hormone - Sensitive) (11/12/2021 8:59 AM CDT) P athologist Signature TSH, Sensitive 2.7 0.3 - 4.2 11/12/2021 DTL mIU/L 10:16 AM CDT Specimen Anatomical Collection Method Collection Time Receive d Time (Source) Location / / Volume Laterality Blood (Blood, 11/12/2021 8:59 AM 11/13/19 9:46 Venous) CDT AM CDT Venkata Mayen M.D. LAB BLOOD ADD-ON Performing Organization Address City/State/ZIP Code Phon e Number [facility] - [address] [place], [place] [address] [facility] [place] [place] [address] [facility] 200 [facility] Comprehensive Metabolic Panel (11/12/2021 8:59 AM CDT) athologist Signature Potassium, S 4.7 3.6 - 5.2 11/12/2021 DTL mmol/L 10:11 AM CDT Sodium, S 138 135 - 145 11/12/2021 DTL mmol/L 10:11 AM CDT Chloride, S 98 98 - 107 11/12/2021 DTL mmol/L 10:11 AM CDT Bicarbonate, S 29 22 - 29 11/12/2021 DTL mmol/L 10:11 AM CDT Anion Gap 11 7 - 15 11/12/2021 DTL 10:11 AM CDT BUN (Blood Urea 17 6 - 21 11/12/2021 DTL Nitrogen), S mg/dL 10:11 AM CDT Creatinine 0.89 0.59 - 11/12/2021 DTL 1.04 mg/dL 10:11 AM CDT eGFR-Non 65 >=60 11/12/2021 DTL Black/ mL/min/BSA 10:11 AM CDT [place]ian Comment: ----ADDITIONAL INFORMATION---- Estimated GFR calculated using the 2009 CKD_EPI creatinine equation. eGFR-Black/ 74 >=60 mL/min/BSA 2021 10:11 AM CDT DTL Comment: ----ADDITIONAL INFORMATION---- Estimated GFR calculated using the 2009 CKD_EPI creatinine equation. Calcium, Total, S 9.3 8.8 - 10.2 mg/dL 11/12/2021 10:1 1 AM CDT DTL Glucose, S 122 70 - 140 mg/dL 11/12/2021 10:11 AM CDT DTL Protein, Total, S 6.9 6.3 - 7.9 g/dL 11/12/2021 10:11 AM CDT DTL Albumin, S 4.6 3.5 - 5.0 g/dL 11/12/2021 10:11 AM CDT DTL Aspartate Aminotransferase 27 8 - 43 U/L 11/12/2021 1 0:11 AM CDT DTL (AST), S Alkaline Phosphatase, S 63 35 - 104 U/L 11/12/2021 10 :11 AM CDT DTL Alanine Aminotransferase (ALT), 28 7 - 45 U/L 022 10:11 AM CDT DTL S Bilirubin, Total, S 0.7 <=1.2 mg/dL 11/12/2021 10:11 A M CDT DTL Specimen Anatomical Collection Method Collection Time Receive d Time (Source) Location / / Volume Laterality Blood (Blood, 11/12/2021 8:59 AM 11/13/19 9:46 Venous) CDT AM CDT Venkata Mayen M.D. LAB BLOOD ADD-ON Performing Organization Address City/[facility] Code Phon e Number [facility] [address] Hemoglobin A1c (11/12/2021 8:56 AM CDT) P athologist Signature Hemoglobin A1c, 5.6 4.0 - 5.6 11/14/2021 DTL B % 5:13 PM CDT Specimen Anatomical Collection Method Collection Time Receive d Time (Source) Location / / Volume Laterality Blood (Blood, 11/12/2021 8:56 AM 11/15/19 4:00 Venous) CDT PM CDT Venkata Mayen M.D. LAB BLOOD ADD-ON Performing Organization Address City/State/[facility] Code Phon e Number [facility] - [address] [place], [place] [address] XR CHEST 2V-Outside Chest Xray (11/03/2021 10:00 AM CDT)Only the most recent of2 resultswithin the time period is included. Specimen (Source) Anatomical Location Collection Method / Collectio n Time Received Time / Laterality Volume Narrative IIID - 11/09/2021 10:58 AM CDT This order has been created and auto-finalized to support the import of outside images. If available, original i nterpretation can be found on the Media Tab in Chart Review, in Document V iewer, or as an image in QREADS. If a re-interpretation or overread is re quired please follow defined workflow. ?? Provider Not In System IMG DIAGNOSTIC IMAGING PROCE DURES Performing Organization Address City/[facility]/ZIP Code Phon e Number II II NA ECHO COMPLETE WO CONTRAST-Outside US Card (11/02/2021 8:15 AM CDT) Specimen (Source) Anatomical Location Collection Method / Collectio n Time Received Time / Laterality Volume Narrative IIID - 11/14/2021 12:42 PM CDT This order has been created and auto-finalized to support the import of outside images. If available, original i nterpretation can be found on the Media Tab in Chart Review, in Document V iewer, or as an image in QREADS. If a re-interpretation or overread is re quired please follow defined workflow. ?? Provider Not In System IMG NON RAD IMAGING PROCEDUR ES Performing Organization Address [facility]/ZIP Code Phon e Number II II NA CT ANGIO CHEST PE PROTOCOL-Outside CT Body (11/01/2021 11:15 PM CDT) Specimen (Source) Anatomical Location Collection Method / Collectio n Time Received Time / Laterality Volume Narrative IIID - 11/09/2021 11:04 AM CDT This order has been created and auto-finalized to support the import of outside images. If available, original i nterpretation can be found on the Media Tab in Chart Review, in Document V iewer, or as an image in QREADS. If a re-interpretation or overread is re quired please follow defined workflow. ?? Provider Not In System IMG CT PROCEDURES Performing Organization Address City/[facility]/ZIP Code Phon e Number II II NA from Last 3 Months Insurance Payer Benefit Plan Subscriber ID Effective Phone Address Typ e / Group Dates MEDICARE MEDICARE A [id number] 2012-Pre [address] [place] [address] BLUE CROSS BCBS EKLUTNA [id number] 2016-Pres [phone] PO ZENY X Cost Share BLUE SHIELD BLUE COST ent [phone] [place] RENNER [id number] Advance Directives For more information, please contact: [phone] Documents on File Type Date Recorded Patient Process Technician Explanati on Advance Directives 08/26/2012 12:00 AM Legacy docu ment. See document viewer. Latest Code Status on File Code Status Date Activated Date Inactivated Comments Full Code 11/22/2021 4:26 PM 11/23/2021 4:07 PM Question Answer Comments Full Code: Discussed Code Status History Code Status Date Activated Date Inactivated Comments Full Code 11/21/2021 3:14 PM 11/22/2021 4:26 PM Question Answer Comments Full Code: Discussed Full Code 11/14/2020 10:55 AM 11/15/2020 12:46 PM Question Answer Comments Full Code: Discussed Care Teams Insurance Analyst Relationship Specialty Start Date End Date Elsewhere, Pcp PCP - General Internal Medicine 12/12/21
--- OUTSIDE RECORDS SUMMARY | 2022-01-10 08:59 | XMS_ITS | Encounter Summary ---
:1950 Author Organization [facility] Address [address] [place] [address] Care Team Providers Name Role Phone Elsewhere, Pcp Primary Care Provider Unavailable Reason for Visit Reason Comments Pre-visit Intake Encounter Details Date Type Department Care Team Description 12/12/2021 Clinical Communication Visit Review in Pr e-visit Intake [address] [id number] Social History Tobacco Use Types Packs/Day Years Used Date Smoking Tobacco: Former Cigarettes 0 0 06/0 08/1965 - 04/01/1979 Smokeless Tobacco: Never Alcohol Use Standard Drinks/Week Comments Yes 10 (1 standard drink = 0.6 oz pure alcoh ol) Alcohol Habits Answer Date Recorded How often do you have a drink containing 4 or more times a w [place] 11/13/2021 alcohol? How many drinks containing alcohol [...] or relatives? How often do you attend muslim or More than 4 times per year 11/13/2021 catholic services? Do you belong to any clubs or Yes 11/13/2021 organizations such as muslim groups, unions, fraternal or athletic groups, or [...] place to sleep or slept in a custodial (including now)? Education Answer Date Recorded What is the highest level of school you have completed or 12 th grade 10/02/2020 the highest degree you have received? 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
--- OUTSIDE RECORDS SUMMARY | 2022-01-10 08:59 | XMS_ITS | Encounter Summary ---
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 [facility] Procedures ECG 12 Lead [address] [place], [place] [address] Referral ID Status Reason Start Date Expiration Date Visits Requ ested Visits Authorized [id number] Closed 12/13/2021 12/13/2022 1 1 Appointment Request (Routine) - Closed Specialty Diagnoses / Procedures Referred By Contact Refer red To Contact Diagnoses Coronary Artery Disease Without Angina Pectoris Atherosclerotic Heart Disease [place] Coronary Artery Without Angina Pectoris Cardiac Disease Regurgitation Mitral Chronic Diastolic (Congestive) Heart Failure (HCC) Venkata Mayen M.D. Procedures CBC without Differential [address] [place], [place] [address] Referral ID Status Reason Start Date Expiration Date Visits Requ ested Visits Authorized [id number] Closed 12/13/2021 12/13/2022 1 Reason for Visit Outpatient (Routine) - Closed Specialty Diagnoses / Referred By Contact Referred To Contact Procedures Cardiovascular Diseases / Diagnoses Coronary Artery Disease Without Angina Pectoris Atherosclerotic Heart Disease [place] Coronary Artery Without Angina Pectoris Cardiac Disease Melinda Ochoa, [facility] [address] [place] [address] Referral ID Status Reason Start Date Expiration Date Visits Requ ested Visits Authorized [id number] Closed 11/21/2021 11/21/2022 1 1 Encounter Details Date Type Department Care Team Description 12/13/2021 Comprehensive Visit Department of Venkata Mayen Regurgi tation Mitral (Primary Dx); Cardiovascular Tiffanie Rivera Coronary Artery Disease Without Angina P ectoris; Medicine in [address] Atherosclerotic Heart Disease [place] Coronary Artery Without Angina Pectoris; [facility] Cardiac Disease; [address] [facility], Chronic Diastolic (Congestiv e) Heart Failure (HCC) [facility] [phone] Social History Tobacco Use Types Packs/Day Years Used Date Smoking Tobacco: Former Cigarettes 0 0 08/1965 - 04/01/1979 Smokeless Tobacco: Never Alcohol Use Standard Drinks/Week Comments Yes 10 (1 standard drink = 0.6 oz pure alcoh ol) Alcohol Habits Answer Date Recorded How often do you have a drink containing 4 or more times a w [place] 11/13/2021 alcohol? How many drinks containing alcohol [...] or relatives? How often do you attend druze or More than 4 times per year 11/13/2021 druze services? Do you belong to any clubs or Yes 11/13/2021 organizations such as druze groups, unions, fraternal or athletic groups, or [...] place to sleep or slept in a fdc (including now)? Education Answer Date Recorded What is the highest level of school you have completed or 12 th grade 10/02/2020 the highest degree you have received? 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 Last Filed Vital Signs Vital Sign Reading Time Taken Comments Blood Pressure 103/52 12/13/2021 8:26 AM CDT BpTRU Pulse 59 12/13/2021 8:26 AM CDT Temperature - - Respiratory Rate - - Oxygen Saturation - - Inhaled Oxygen Concentration - - Weight 96.8 kg (213 lb 6.5 oz) 12/13/2021 8:26 AM CDT Height 158.1 cm (5' 2.24) 12/13/2021 8:26 AM CDT Body Mass Index 38.73 12/13/2021 8:26 AM CDT documented in this encounter Plan of Treatment Not on filedocumented as of this encounter Results ECG 12 Lead (12/13/2021 10:13 AM CDT) P athologist Signature Ventricular Rate 64 BPM MUSE ECG/Min TX Interval 154 ms MUSE QRSD Interval 88 ms MUSE QT Interval 420 ms MUSE QTC Interval 433 ms MUSE P [place] 60 degrees MUSE R [place] 30 degrees MUSE T Wave [place] -5 degrees MUSE Specimen Anatomical Collection Method [...] Note Carlos Galdamez M.D., Ph.D. - 12/14/19 IMPRESSION: Normal sinus rhythm Normal ECG When compared with ECG of 22-NOV-2021 16 :32, QT has shortened Reviewed by LOGAN Philip Venkata Mayen M.D. ECG ORDERABLES Performing Organization Address City/State/ZIP Code Phon e Number MUSE MUSE NA NT-Pro B-Type Natriuretic Peptide (BNP) (12/13/2021 9:58 AM CDT) athologist Signature NT-Pro BNP 456 <=540 pg/mL [...] Organization Address City/State/ZIP Code Phon e Number [facility] - [address] [place], [place] [address] [facility] [place] [address] [facility] [place] 200 [facility] (ABNORMAL) Basic Metabolic Panel (12/13/2021 9:58 AM CDT) P athologist Signature Potassium, S 5.0 3.6 [...] Organization Address City/State/ZIP Code Phon e Number [facility] - [address] [place], [place] [address] [facility] [place] [address] [facility] [place] [address] [facility] (ABNORMAL) CBC without Differential (12/13/2021 9:58 AM CDT) [facility] gist Method Time Signature Hemoglobin 12.5 11.6 [...] Organization Address City/State/ZIP Code Phon e Number [facility] - [address] [place] [address] [place] [address] [place] [address] [facility] [place] 200 [facility] documented in this encounter Visit Diagnoses Diagnosis Regurgitation Mitral - Primary Coronary Artery Disease Without Angina P ectoris Atherosclerotic Heart Disease [place] Coronary Artery Without Angina Pectoris Cardiac Disease Chronic Diastolic (Congestive) Heart Jose lure (HCC) documented in this encounter Additional Health Concerns Assessment Noted Time PHQ-9 Depression Total Score: 6 08/20/2012 4:08 PM CDT documented as of this encounter 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
--- OUTSIDE RECORDS SUMMARY | 2022-01-10 08:59 | XMS_ITS | Encounter Summary ---
:1950 Author Organization [facility] Address [address] [place] [address] Care Team Providers Name Role Phone Elsewhere, Pcp Primary Care Provider Unavailable Reason for Referral Appointment Request (Routine) - Closed Specialty Diagnoses / Procedures Referred By Contact Refer red To Contact Diagnoses Coronary Artery Disease Without Angina Pectoris Atherosclerotic Heart Disease Of [place] Coronary Artery Without Angina Pectoris Cardiac Disease Regurgitation Mitral Chronic Diastolic (Congestive) Heart Failure (HCC) Venkata Mayen M.D. 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 Procedures CBC without Differential [address] [place] [address] Referral ID Status Reason Start Date Expiration Date Visits Requ ested Visits Authorized [id number] Closed 12/13/2021 12/13/2022 1 Encounter Details Date Type Department Care Team Description 12/13/2021 Hospital Encounter Department of Venkata Mayen Coronary Artery Disease Without Angina Pectoris; Laboratory Medicine Tiffanie Rivera Atherosclerotic Heart Disease [facility] [place] Coronary Artery Without Angina Pectoris; and Pathology, 200 [facility] Cardiac Disease; [facility], in [place], [place] Regurgi tation Mitral; [place], [address] Chronic Diastolic (Congestive) Heart Jose santhosh ([facility]LY [facility]) [place] [phone] [address] [facility] (Work) [place], [place] [phone] [address] (Fax) [phone] Social History Tobacco Use Types Packs/Day Years Used Date Smoking Tobacco: Former Cigarettes 0 0 06/0 08/1965 - 04/01/1979 Smokeless Tobacco: Never Alcohol Use Standard Drinks/Week Comments Yes 10 (1 standard drink = 0.6 oz pure alcoh ol) Alcohol Habits Answer Date Recorded How often do you have a drink containing 4 or more times a w [place] 11/13/2021 alcohol? How many drinks containing alcohol [...] or relatives? How often do you attend taoism or More than 4 times per year 11/13/2021 judaism services? Do you belong to any clubs or Yes 11/13/2021 organizations such as taoism groups, unions, fraternal or athletic groups, or [...] minutes do you engage in exercise at is 40 min 11/13/2021 level? Stress Answer [...] place to sleep or slept in a fci (including now)? Education Answer Date Recorded What is the highest level of school you have completed or 12 th grade 10/02/2020 the highest degree you have received? 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 aspirin 81 mg chewable Chew 1 tablet (81 90 tablet 3 2020 tablet mg total) daily. calcium carbonate (CALCIUM Take 2 tablets by 0 500 ORAL) mouth daily. cholecalciferol (VITAMIN Take 2,000 Units by 0 D3) 2,000 Unit capsule mouth daily. clopidogreL (PLAVIX) 75 mg Take 1 tablet (75 30 tablet 11 tablet mg total) by mouth daily. ezetimibe (ZETIA) 10 mg Take 10 mg by mouth 0 12/2018 tablet at bedtime. furosemide (LASIX) 20 mg Take 1 tablet (20 180 tablet 3 04/2021 tablet mg total) by mouth 2 (two) times a day. miscellaneous medical CPAP machine for 0 12/21/19 21 supply misc home use at pressure 5-16 cmw, nasal mask x1/3month with nasal pillows x 2/mo nitroglycerin (NITROSTAT) Place 0.4 mg under 0 0.4 mg SL tablet the tongue as needed. potassium chloride Take 1 tablet (10 90 tablet 3 11/23/2021 (KLORCON/K-TAB) 10 mEq ER mEq total) by mouth tablet daily with breakfast. Do not crush or chew. ramipriL (ALTACE) 5 mg Take 2 capsules (10 180 capsule 3 capsule mg total) by mouth daily. rosuvastatin (CRESTOR) 40 Take 1 tablet by 0 05/22 mg tablet mouth at bedtime. sertraline (ZOLOFT) 100 mg Take 1 tablet by 0 tablet mouth at bedtime. verapamiL (CALAN-SR) 240 Take 1 tablet (240 90 tablet 3 mg ER tablet mg total) by mouth at bedtime. documented as of this encounter Plan of Treatment Not on filedocumented as of this encounter Procedures Procedure Name Priority Date/Time Associated Comments Diagnosis NT-PRO B-TYPE Routine 12/13/2021 9:58 AM Coronary Artery Resul ts for this NATRIURETIC PEPTIDE CDT Disease Without proce dure are in (BNP), S Angina Pectoris the results Atherosclerotic section. Heart Disease [facility] [place] Coronary Artery Without Angina Pectoris Cardiac Disease Regurgitation Mitral Chronic Diastolic (Congestive) Heart Failure (HCC) CBC WITHOUT Routine 12/13/2021 9:58 AM Coronary Artery Result s for this DIFFERENTIAL, B CDT Disease Without procedure are in Angina Pectoris the results Atherosclerotic section. [facility] Disease [facility] [place] Coronary Artery Without Angina Pectoris Cardiac Disease Regurgitation Mitral Chronic Diastolic (Congestive) Heart Failure (HCC) BASIC METABOLIC Routine 12/13/2021 9:58 AM Coronary Artery Res ults for this PANEL, S/P CDT Disease Without procedure ar e in Angina Pectoris the results Atherosclerotic section. Heart Disease [facility] [place] Coronary Artery Without Angina Pectoris Cardiac Disease Regurgitation Mitral Chronic Diastolic (Congestive) Heart Failure (HCC) documented in this encounter Results NT-Pro B-Type Natriuretic Peptide (BNP) (12/13/2021 9:58 [...] Organization Address City/State/ZIP Code Phon e Number [facility] - [address] [place], [place] [address] [facility] [place] [address] [facility] [address] (ABNORMAL) Basic Metabolic Panel (12/13/2021 9:58 AM CDT) athologist Signature Potassium, S 5.0 3.6 - [...] Organization Address City/State/ZIP Code Phon e Number [facility] - [address] [place], [place] [address] [facility] [place] [address] [facility] [address] (ABNORMAL) CBC without Differential (12/13/2021 9:58 AM CDT) [facility] gist Method Time Signature Hemoglobin 12.5 11.6 [...] Organization Address City/State/ZIP Code Phon e Number [facility] - [address] [place], [place] [address] [facility] [place] [address] [facility] [address] documented in this encounter Visit Diagnoses Diagnosis Coronary Artery Disease Without Angina P ectoris Atherosclerotic Heart Disease [facility] [place] Coronary Artery Without Angina Pectoris Cardiac Disease Regurgitation 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) documented in this encounter Additional Health Concerns Assessment Noted Time PHQ-9 Depression Total Score: 6 08/20/2012 4:08 PM CDT documented as of this encounter 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
--- OUTSIDE RECORDS SUMMARY | 2022-01-10 08:59 | XMS_ITS | Encounter Summary ---
:1950 Author Organization [facility] Address [address] [place] [id number] Care Team Providers Name Role Phone Unavailable Primary Care Provider Unavailable Reason for Referral Outpatient (Routine) - Authorized Specialty Diagnoses / Procedures Referred By Contact Refer red To Contact Diagnoses Coronary Stent Status Post Jean Carlos Martinez M.D. [address] [place] [phone] Referral ID Status Reason Start Expiration Visits Visits Date Date Requested Authorized [id number] Authorized Continuity of 11/23/2021 11/23/2022 1 1 Care Encounter Details Date Type Department Care Team Description 11/21/2021 - [facility] Stevie Mohan M.D. [address] [place] [phone] Cardiac Disease (Primary Dx); [facility] [address] [place] [phone] Regurgitation Mitral; [facility], Jean Carlos Martinez M.D. [address] [place] [phone] Chronic Diastolic (Congestive) Heart Jose lure (HCC); Nasseff Camargo Pain Chest; Building, Fourth Impaired Fa sting Glucose; Floor Dyspnea Multifactorial; [address] Ischemic Heart Chronic Disea se; [place] Regurgitation Mitral; [phone] Chronic Diastolic (Congestiv e) Heart Failure ([facility]); [phone] Pain Chest; Atherosclerotic Heart Disease Of [place] Coronary Artery Without Angina Pectoris; Coronary Stent Status Post Social History Tobacco Use Types Packs/Day Years Used Date Smoking Tobacco: Former Cigarettes 0 0 /0 08/1965 - 04/01/1979 Smokeless Tobacco: Never Alcohol Use Standard Drinks/Week Comments Yes 10 (1 standard drink = 0.6 oz pure alcoh ol) Alcohol Habits Answer Date Recorded How often do you have a drink containing 4 or more times a w [place] 11/13/2021 alcohol? How many drinks containing alcohol [...] or relatives? How often do you attend advent or More than 4 times per year 11/13/2021 amish services? Do you belong to any clubs or Yes 11/13/2021 organizations such as advent groups, unions, fraternal or athletic groups, or [...] place to sleep or slept in a penitentiary (including now)? Education Answer Date Recorded What is the highest level of school you have completed or 12 th grade 10/02/2020 the highest degree you have received? Sex Assigned at Date Recorded Female 05/03/2021 9:58 AM [employer] documented as of this encounter Last Filed Vital Signs Vital Sign Reading Time Taken Comments Blood Pressure 118/60 11/23/2021 12:00 PM CDT Pulse 76 11/23/2021 12:00 PM CDT Temperature 36.7 ??C (98.1 ??F) 11/23/2021 11:58 AM CDT Respiratory Rate 18 11/23/2021 12:00 PM CDT Oxygen Saturation 96% 11/23/2021 12:00 PM CDT Inhaled Oxygen Concentration - - Weight 94.9 kg (209 lb 3.5 oz) 11/23/2021 4:00 AM CDT Height 159.8 cm (5' 2.91) 11/21/2021 9:13 AM CDT Body Mass Index 37.16 11/21/2021 9:13 AM CDT documented in this encounter Discharge Summaries Melinda Ochoa P.A.-C. - 11/23/2021 11:45 AM CDT CARDIOLOGY HOSPITAL DISCHARGE SUMMARY DATE OF ADMISSION: 11/21/2021 DATE OF DISCHARGE: 11/23/2021 Discharge Provider: Jean Carlos Martinez M.D. Discharge Provider Team: RSGabrielle CARD 3 PRINCIPAL DIAGNOSIS Coronary artery disease S/p BMS to mLAD (12/1999), MARLY to LAD (03/2005) to RCA (05/2005), to OM1 (07/2005) s/p angioplasty for in-stent restenosis (03/2008), to proximal RCA and mid RCA (11/14/2020), toproximal/ostial RCA (11/22/2021) DISMISSAL DIAGNOSES Coronary artery disease S/p BMS to mLAD (12/1999), MARLY to LAD (03/2005) to RCA (05/2005), to OM1 (07/2005) s/p angioplasty for in-stent restenosis (03/2008), to proximal RCA and mid RCA (11/14/2020), toproximal/ostial RCA (11/22/2021) Moderate mitral valve regurgitation Calcified mitral annulus and mitral valve chordae, mean diastolic gradient 4 mm Hg (TTE 11/12/2021) Chronic diastolic heart failure, LVEF 65% (TTE 11/12/2021) Pulmonary hypertension RVSP 39 mm Hg (TTE 11/12/2021) Hypertension Hyperlipidemia Impaired fasting glucose, A1c 5.6% (11/12/2021) Obstructive sleep apnea on CPAP Obesity, BMI > 35 Thrombocytopenia, unclear etiology RECOMMENDATIONS FOR FOLLOW-UP APPOINTMENTS -- BMP and CBC post hospitalization -- Continue dual-antiplatelet therapy with aspirin 81 mg daily and Plavix 75 mg daily for 1 year (end date 11/22/2022), continue aspirin life long -- Mrs. Collins reported that she took oral lasix 20 mg twice daily. She appeared euvolemic on exam,so it was recommended on discharge for this to be her maintenance dosing. Continue to monitor fluid status and adjust as needed. -- She did not require significant potassium replacement while hospitalized. Her home maintenance dosing was decreased from 40 mEq to 10 mEq daily. -- Thrombocytopenia was identified on admission prior to heparin initiation, so HIT syndrome was unlikely. Continue to monitor and workup as indicated. RESTRICTIONS: See after visit summary FOLLOW-UP APPOINTMENTS Scheduled Appointments 12/13/2021 8:30 AM Venkata Mayen M.D. Cardiovascular Disease For appointment details refer to your Patient Appointment Guide. HOSPITAL COURSE Admission Weight: 95.8 kg Dismissal Weight: 94.9 kg BMI: Body mass index is 37.16 kg/m??. Ms. Clolins is a 71-year-old female who presented to the catheterization lab for right and left heart catheretization. 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 Briefly, Ms. Collins presented to an outside emergency department on 11/01/21 for significant dyspneaand diaphoresis. She was admitted for flash pulmonary edema. She was diuresed and empirically treated with ceftriaxone and azithromycin for possible infection. An echocardiogram was performed on 11/02 which displayed moderate-severe mitral regurgitation, LVEF preserved at 60%. It was felt that her mitral regurgitation was the contributor to her heart failure which manifested as pulmonary edema. They recommended urgent evaluation of her mitral valve for intervention in the outpatient setting. She was seen by [facility] outpatient cardiology on 11/14 where it was recommended that her echocardiogram berepeated and she undergo cardiac CT angiogram for further characterization of her mitral valve anatomy; CT showed severe mitral anular calcification. On 11/16 she had a telephone visit with her outpatient primary H[employer] Infrastructure Architect where she endorsed left-sided chest discomfort with associated left scapular/jaw discomfort with higher levels of exertion which raised concerns for cardiac ischemia. On 11/20 shewas seen in the cardiology clinic where it was felt that her exertional angina and possible myocardial ischemia could have precipitated to hospitalization on 11/01 in the setting of underlying heart failure with mitral valve disease. A left and right heart catheretization was recommended, which she proceeded to on 11/21/21. In the cardiac catheretization lab, a discrete lesion was identified in her proximal/ostial RCA. It was felt that she would benefit from the initiation of IV heparin prior to intervention. Her right heart catheterization was performed as well, official report was still pending at time of discharge. Upon admission, she remained hemodynamically stable and symptom free. She was initiated on IV heparin to minimize risk of complications during intervention. She underwent successful percutaneous intervention of her proximal/ostial RCA on 11/22. The preintervention stenosis was 99%, the post interventionstenosis was 0%. Access site was her right femoral artery, her site was without hematoma or tenderness upon discharge. Her kidney function was monitored and remained stable. She should remain on dual-antiplatelet therapy for one year, end date being 11/22/2022. For her heart failure, the addition of an SGLT-2 inhibitor was considered, however the [id number]-drldgdxivh was greater than $700 for a 3 month supply. Spironolactone was not initiated due to intermittent hypotension. She reported that she increased her previous home lasix of 20 mg daily to 20 mg twice daily. This was the dosing that was continued during hospitalization; she remained euvolemic so she was discharged at that dose. Additionally, she did not require any potassium supplementation on that diuretic dose, so her home maintenance supplementation was decreased to 10 mEq daily. Of note, thrombocytopenia was identified upon admission. Her platelet count on 11/12 had been 192, however on admission it was 123. Recheck the following morning displayed a platelet count of 119. She denied easy bruising or bleeding, the cause of the thrombocytopenia is unclear at this time. It was decreased prior to starting heparin, so HIT syndrome was unlikely. Additionally, her platelet count remained stable through hospitalization while maintained on heparin. She was initiated on Plavix on 11/16/21, however she has been on dual antiplatelet therapy before without causing thrombocytopenia. Monitor in the outpatient setting and workup as indicated. Right heart catheretization was performed to evaluate current pharmacotherapy in order to optimize hemodynamics and volume status in the setting of mitral regurgitation. Further workup and interventional plans will continue in the outpatient setting. She was discharged to home on 11/23/21. DISCHARGE DISPOSITION: Home or Self Care [1] CONDITION ON DISCHARGE: Stable. DIET AT DISCHARGE: Cardiovascular. Low sodium, low fat. 2L fluid restriction. PRIMARY PROVIDER Patient Care Team: Lorin Parson M.D. as External Primary Care Physician (Family Medicine) MARGIN CODE I personally spent total time of 35 minutes with >50% spent with counseling/coordination of care,independent from other providers on our team. documented in this encounter Discharge Instructions Discharge InstructionsBlessing Shin - 11/21/2021 12:38 PM CDT You were discharged from the T CARD 3 Service. Please identify this service name if you call with questions after hospitalization. documented in this encounter Medications at Time of Discharge [...] at bedtime. documented as of this encounter Progress Notes Adi Lawrence, Pharm.D., R.Ph. - 11/22/2021 10:05 AM CDT Images from the original note were not included. Pharmacist Progress Note Reason for admission: Angina - discovered RCA stenosis during heart cath on 11/21. PMH: coronary artery disease s/p multiple coronary stents, mitral valvular heart disease, pulmonary hypertension , heart failure with preserved ejection fraction (LVEF 65%), hypertension, hyperlipidemia, impaired fasting glucose (A1c 5.6%), obstructive sleep apnea on CPAP, obesity, breast cancer, OBJECTIVE Home medications: Held: none Changed: ramipril -> lisinopril Prophylaxis: Moderate IV heparin ASSESSMENT / PLAN CV: BP 107/96. Planned PCI in OR today. Home ASA/clopidogrel resumed. IV heparin started after laboratory equipment installer visit yesterday. Back to laboratory equipment installer today. Medications reviewed. Changes to medications anticipated at discharge:WYATT Lawrence Pharm.D., R.Ph. Patient was interviewed in person.The medication list below was updated by a pharmacist and reflectsthe patient's medication list on the date of this note. Modified Medications Sig albuterol 90 mcg/actuation inhaler Inhale 2 puffs every 4 (four) hours as needed. aspirin 81 mg chewable tablet Chew 1 tablet (81 mg total) daily. calcium carbonate (CALCIUM 500 ORAL) Take 2 tablets by mouth daily. cholecalciferol (VITAMIN D3) 2,000 Unit capsule Take 2,000 Units by mouth daily. clopidogreL (PLAVIX) 75 mg tablet Take 1 tablet (75 mg total) by mouth daily. ezetimibe (ZETIA) 10 mg tablet Take 10 mg by mouth at bedtime. furosemide (LASIX) 40 mg tablet Take 40 mg by mouth 2 (two) times a day. [facility]ellaneous [facility] supply [facility] CPAP machine for home use at pressure 5-16 cmw, nasal mask x1/3month with nasal pillows x 2/mo nitroglycerin (NITROSTAT) 0.[address] 0.4 mg under the tongue as needed. potassium chloride (KLORCON/K-TAB) 10 mEq ER tablet TAKE 4 TABLETS BY MOUTH EVERY MORNING ramipriL (ALTACE) 5 mg capsule Take 2 capsules (10 mg total) by mouth daily. rosuvastatin (CRESTOR) 40 mg tablet Take 1 tablet by mouth at bedtime. sertraline (ZOLOFT) 100 mg tablet Take 1 tablet by mouth at bedtime. verapamiL (CALAN-SR) 240 mg ER tablet Take 1 tablet (240 mg total) by mouth at bedtime. Adi Lawrence PharmNavid., R.Ph. Melinda Ochoa P.A.-C. - 11/22/2021 9:14 AM CDT RST CARD 3 CARDIOLOGY INPATIENT PROGRESS NOTE SUBJECTIVE Ms. Collins was seen and examined on morning rounds. She is feeling well. She remains chest pain free and has no acute concerns or complaints. She is hoping that her procedure is able to be moved up so she can get it done. OBJECTIVE TELEMETRY Normal sinus rhythm. Heart rate in the 60's. No alarms overnight. Today's weight: 95.3 kg Admission Weight: 95.8 kg Body mass index is 37.32 kg/m??. VITAL SIGNS Temperature: 36.4 Heart Rate: 63 Resp Rate: 18 Blood Pressure: 116/54 SpO2: 93 Flow Rate: Room air PHYSICAL EXAMINATION General: Appropriate, cooperative, appears stated age. Resting comfortably in bedside chair. Heart: Regular rate and rhythm, grade 1-2/6 systolic ejection murmur. No peripheral extremity edema.Right IJ access site is non-bruised and nontender. Lungs: Clear to auscultation bilaterally. No wheezing, rhonchi or rales. Diminished breath sounds inbilateral lower lobes. Breathing comfortably on room air. No cough. Abdomen: Soft, nondistended, nontender to palpation. No rebound tenderness or guarding. Extremities: Warm, dry, nonedematous. Mental: Alert and oriented. DIAGNOSTICS I personally reviewed all radiology and labs from the past 24 hrs. Hgb: 11.7 WBC: 5.5 Plts: 119 K: 3.9 Na: 138 Creatinine: 0.71 GFR: 90 IMAGING TTE 11/12/21 Moderate mitral valve regurgitation with calcified mitral annulus and mitral valve chordae. Mean diastolic gradient 4 mm Hg Mild aortic valve stenosis, gradient 7 mm Hg Mild tricuspid valve regurgitation Mildly enlarged LV chamber size with no regional wall abnormalities. LVEF 65% Severely enlarged LA size by visual estimate Normal RV chamber size with normal systolic function. RVSP 39 mm Hg. Normal IVC with normal inspiratory collapse No pericardial effusion LILLY 11/14/21 Calcified mitral annulus with focal calcification of the P3 scallop with restricted mobility Moderate mitral valve regurgitation Are mild calcific mitral stenosis, mean diastolic gradient 3 mm Hg No left atrial appendage thrombus No zeobs-ot-tssm shunt at atrial level at rest or with Valsalva release ASSESSMENT / PLAN Coronary artery disease S/p BMS to mLAD (12/1999), MARLY to LAD (03/2005) to RCA (05/2005), to OM1 (07/2005) s/p angioplasty for in-stent restenosis (03/2008), to proximal RCA and mid RCA (11/14/2020) Moderate mitral valve regurgitation Calcified mitral annulus and mitral valve chordae, mean diastolic gradient 4 mm Hg (TTE 11/12/2021) Chronic diastolic heart failure, LVEF 65% (TTE 11/12/2021) Pulmonary hypertension RVSP 39 mm Hg (TTE 11/12/2021) Hypertension Hyperlipidemia Impaired fasting glucose, A1c 5.6% (11/12/2021) Obstructive sleep apnea on CPAP Obesity, BMI > 35 Thrombocytopenia, unclear etiology Ms. Collins is a 71 y.o. female who presented to the cardiac laboratory equipment installer for L/RHC in the setting of progressing angina and for hemodynamic evaluation for her moderate mitral valve regurgitation. Coronaryevaluation displayed significant stenosis of her proximal/ostial RCA , the procedure was terminated without intervention. She was admitted to the CARDS 3 service for initiation of IV heparin in anticipation of planned intervention on 11/22/21. She was initiated on moderate intensity heparin upon admission. She remains symptom free. She will proceed to PCI today with Dr. Sher. SGLT-2 initiation was considered, however for a 3 month supply her estimated out of pocket cost was $747 for a 3 month supply. Right heart catheretization was performed to evaluate current pharmacotherapy in order to optimize hemodynamics and volume status. Results have not been finalized. Mitral valve intervention may be deferred in the setting of coronary artery intervention. Of note, she was noted to have thrombocytopenia upon admission. Her platelet count on 11/12 had been 192, however on admission it was 123. Recheck this morning displayed a count of 119. She denies easy bruising or bleeding, the cause of the thrombocytopenia is unclear at this time. It was decreased prior to starting heparin, so HIIT syndrome is not likely. She was initiated on Plavix on 11/16/21, however she has been on dual antiplatelet therapy before without causing thrombocytopenia. Will continue to monitor. Her potassium this morning was 3.9. Will supplement with 10 mEq KCl after intervention due to KCl causing stomach upset if taken without food. PLAN: Continue moderate intensity heparin PCI with Dr. Sher today No SGLT-2 addition due to cost, could consider addition of spironolactone 10 mEq KCl once back from laboratory equipment installer Continue dual antiplatelet therapy with aspirin 81 mg daily and Plavix 75 mg daily Continue to monitor daily CBC for platelet count monitoring Continue other home medications including: Zetia 10 mg daily, Lasix 20 mg twice daily, lisinopril 40mg daily (formulary change for ramipril 10 mg), rosuvastatin 40 mg daily, sertraline 100 mg daily, and verapamil 240 mg daily. VTE: IV heparin Gi: not indicated Code Status: Full Code Disposition: Home - self care Melinda Ochoa P.A.-C. 11/22/21 RST CARD 3 Francisca Chavarria C.R.T. - 11/21/2021 4:52 PM CDT Plan of care: Patient brought home cpap machine and was set up and functional upon entrance to room. Will continueto monitor and assess as needed. Under the direction of Carlos Mcdowell Electronically signed by: Francisca Chavarria C.R.T. 11/21/21 4:54 PM CDT documented in this encounter H&P Notes Carlos Montes M.D. - 11/22/2021 8:58 AM CDT Supervisory Hospital Admission Note CV-3 REFERRAL SOURCE: Kimberlee To. SUBJECTIVE Please see the detailed progress note as annotated by my colleague, Ms. LANDRY Ochoa PA-C, elsewhere in the electronic record from earlier today which I have reviewed and agree with as recorded. I met with the patient and discussed findings and plans. The patient is a 71 year old woman admitted from the laboratory equipment installer yesterday with an severe osteal instent restenosis of the RCAp for heparinization as preparation for intervention today. She is pain free this AM. She can get her angina in her neck, chest and right shoulder. There is a background of CAD with LADm BMS in 1999, LAD MARLY 2005, RCA MARLY 2005, OM1 MARLY 2005, PCI for RCA instentrestenosis in 2008 and recently MARLY to RCAp/m a year ago. She also has had MAC, PH mild, HFpEF (EF 65%), HTN, HLD, and ZACHARY on CPAP. There has been a recent acceleration in her angina pattern and a recent admission for flash pulmonary edema. Echo showed EF 60% with moderate-severe MR. I reviewed the cath films which show a very tight osteal RCA. Her MR and the use of SGLT2i +/- REJI was discussed with Dr. Mayen in the outpatient setting. OBJECTIVE BP (!) 107/96 (BP Location: Right arm;Upper, Patient Position: Semi-recumbent) Pulse 75 Temp 36.7 ??C (Oral) Resp (!) 1 Ht 159.8 cm Wt 95.3 kg SpO2 93% BMI 37.32 kg/m?? CPE is negative; I cannot hear the MR. There is no S4 nor S3. Lungs are clear. The ECG in March showed NSR and NSSTT. Recent Results (from the past 24 hour(s)) Basic Metabolic Panel Collection Time: 11/21/21 3:37 PM Result Value Potassium, S 3.9 Sodium, S 138 Chloride, S 102 Bicarbonate, S 27 Anion Gap 9 BUN (Blood Urea Nitrogen), S 13 Creatinine 0.79 Estimated GFR (eGFR) 79 Calcium, Total, S 8.4 (L) Glucose, S 132 CBC with Differential, Blood Collection Time: 11/21/21 3:37 PM Result Value Hemoglobin 11.8 Hematocrit 36.3 Erythrocytes 4.22 MCV 86.0 RBC Distrib Width 13.5 Platelet Count 123 (L) Leukocytes 4.9 Neutrophils 3.18 Lymphocytes 1.45 Monocytes 0.23 (L) Eosinophils 0.04 Basophils <0.03 Magnesium Collection Time: 11/21/21 3:37 PM Result Value Magnesium, S 2.1 Heparin Anti-Xa Assay Collection Time: 11/21/21 10:11 PM Result Value Heparin Anti-Xa, P 0.32 Heparin Anti-Xa Assay Collection Time: 11/22/21 5:12 AM Result Value Heparin Anti-Xa, P 0.43 CBC without Differential Collection Time: 11/22/21 5:13 AM Result Value Hemoglobin 11.7 Hematocrit 35.9 Erythrocytes 4.19 MCV 85.7 RBC Distrib Width 13.6 Platelet Count 119 (L) Leukocytes 5.5 Basic Metabolic Panel Collection Time: 11/22/21 5:13 AM Result Value Potassium, S 3.9 Sodium, S 138 Chloride, S 103 Bicarbonate, S 25 Anion Gap 10 BUN (Blood Urea Nitrogen), S 13 Creatinine 0.71 Estimated GFR (eGFR) 90 Calcium, Total, S 8.6 (L) Glucose, S 117 Patient Active Problem List Diagnosis Hypertensive Heart Disease Without Heart Failure Ischemic Heart Chronic Disease Hyperlipidemia On Treatment Coronary Artery Disease Without Angina Pectoris Apnea Sleep Obstructive Obesity Body Mass Index 30-39.9 Adult Impaired Fasting Glucose Cancer Breast Personal History Dyspnea On Exertion Atherosclerotic Heart Disease Of [place] Coronary Artery Without Angina Pectoris Regurgitation Mitral Chronic Diastolic (Congestive) Heart Failure (HCC) Pain Chest Cardiac Disease Allergies Allergies Allergen Reactions Sulfa (Sulfonamide Antibiotics) Other (see comments) ASSESSMENT / PLAN #1 Cardiac Disease #2 Ischemic Heart Chronic Disease #3 Impaired Fasting Glucose #4 Dyspnea On Exertion #5 Atherosclerotic Heart Disease Of [place] Coronary Artery Without Angina Pectoris #6 Regurgitation Mitral #7 Chronic Diastolic (Congestive) Heart Failure (HCC) #8 Pain Chest She can proceed to PCI today. Would start SGPT-2i this admission if coverage present. She is on an ACEi, CCB, and statin as well as ASA and Plavix. I told her than Dr. Martinez will be assuming care from me tomorrow Melinda Ochoa P.A.-C. - 11/21/2021 2:21 PM CDT CARDIOLOGY INPATIENT ADMISSION NOTE CHIEF COMPLAINT/REASON FOR VISIT Angina Collaborating physician: Carlos Montes M.D. Admitting service: RST CARD 3 HISTORY OF PRESENT ILLNESS Ms. Collins is a 71-year-old female who presented to the catheterization lab for right and left heart catheritization. She is being admitted to the RST CARD 3 service. 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 Briefly, Ms. Collins presented to an outside emergency department on 11/01/21 for significant dyspneaand diaphoresis. She was admitted for flash pulmonary edema. She was diuresed and empirically treated with ceftriaxone and azithromycin for possible infection. An echocardiogram was performed on 11/02 which displayed moderate-severe mitral regurgitation, LVEF preserved at 60%. It was felt that her mitral regurgitation was the contributor to her heart failure which manifested as pulmonary edema. They recommended urgent evaluation of her mitral valve for intervention in the outpatient setting. She was seen by [facility] outpatient cardiology on 11/14 where it was recommended that her echocardiogram berepeated and she undergo cardiac CT angiogram for further characterization of her mitral valve anatomy; CT showed severe mitral anular calcification. On 11/16 she had a telephone visit with her outpatient primary Hadoop Infrastructure Architect where she endorsed left-sided chest discomfort with associated left scapular/jaw discomfort with higher levels of exertion which raised concerns for cardiac ischemia. On 11/20 shewas seen in the cardiology clinic where it was felt that her exertional angina and possible myocardial ischemia could have precipitated to hospitalization on 11/01 in the setting of underlying heart failure with mitral valve disease. A left and right heart catheretization was recommended, which she proceeded to on 11/21/21. In the catheretization lab she was found to have significant proximal/ostial RCA stenosis. The procedure was terminated without intervention and she was admitted to the CARDS 3 service for initiation of IV heparin in anticipation of reattempt of stent placement on 11/22/21. Upon admission, she denied fevers, chills, nausea or vomiting, diaphoresis, headaches, shortness of breath, chest pain, chest pressure, chest achiness, abdominal fullness, leg swelling. She noted that she has significantly decreased her level of exercise per our recommendations to avoid her chest pressure sensation. Code status was reviewed and discussed, she wishes to be FULL CODE. The following portions of the patient's history were reviewed and updated as appropriate: allergies,current medications, family history, medical history, social history, surgical history and problem list. PAST MEDICAL HISTORY Past Medical History: Diagnosis Date Cancer Breast Personal History Cataract Coronary Artery Disease (Unspecified) Glaucoma Hyperlipidemia Hypertension NOS Polyp Colon Sleep Apnea ST Elevation Myocardial Infarction Of Unspecified Site (HCC) Past Surgical History: Procedure Laterality Date CATH ANGIOGRAM N/A 11/14/2020 Procedure: CORONARY ANGIOGRAPHY; Surgeon: Dontae Rubio M.D.; Location: [facility] CATH ANGIOGRAM N/A 11/14/2020 Procedure: Left Heart Catheterization; Surgeon: Donate Rubio M.D.; Location: [facility] CATH INTERVENTION N/A 11/14/2020 Procedure: Coronary Atherectomy; Surgeon: Dontae Rubio M.D.; Location: [facility] CATH INTERVENTION N/A 11/14/2020 Procedure: Stent Placement; Surgeon: Dontae Rubio M.D.; Location: [facility] CATH PTCA N/A 11/14/2020 Procedure: Percutaneous Coronary Angioplasty; Surgeon: Dontae Rubio M.D.; Location: [facility] CORONARY STENT PLACEMENT 1999 and 2005 REVIEW OF SYSTEMS A complete 10 point review of systems was completed and negative except for as mentioned in the HPI. ALLERGIES Allergies Allergen Reactions Sulfa (Sulfonamide Antibiotics) Other (see comments) HOME MEDICATIONS Current Outpatient Medications on File Prior to Encounter: albuterol 90 mcg/actuation inhaler, Inhale 2 puffs every 4 (four) hours as needed., 11/21/2021 at 0740 aspirin 81 mg chewable tablet, Chew 1 tablet (81 mg total) daily., 11/21/2021 at 0430 calcium carbonate (CALCIUM 500 ORAL), Take 2 tablets by mouth., 11/20/2021 cholecalciferol (VITAMIN D3) 2,000 Unit capsule, Take 2,000 Units by mouth., 11/20/2021 clopidogreL (PLAVIX) 75 mg tablet, Take 1 tablet (75 mg total) by mouth daily., 11/21/2021 at 0430 ezetimibe (ZETIA) 10 mg tablet, Take 10 mg by mouth at bedtime. , 11/20/2021 furosemide (LASIX) 20 mg tablet, Take 1 tablet (20 mg total) by mouth daily. (Patient taking differently: Take 20 mg by mouth 2 (two) times a day.), 11/21/2021 at 0430 miscellaneous medical supply misc, CPAP machine for home use at pressure 5-16 cmw, nasal mask x1/3month with nasal pillows x 2/mo, 11/20/2021 nitroglycerin (NITROSTAT) 0.4 mg SL tablet, Place 0.4 mg under the tongue as needed., Past Week potassium chloride (KLORCON/K-TAB) 10 mEq ER tablet, TAKE 4 TABLETS BY MOUTH EVERY MORNING, 11/21/2021 at 0430 ramipriL (ALTACE) 5 mg capsule, Take 2 capsules (10 mg total) by mouth daily., 11/20/2021 rosuvastatin (CRESTOR) 40 mg tablet, Take 1 tablet by mouth at bedtime. , 11/20/2021 sertraline (ZOLOFT) 100 mg tablet, Take 1 tablet by mouth at bedtime. , 11/20/2021 verapamiL (CALAN-SR) 240 mg ER tablet, Take 1 tablet (240 mg total) by mouth at bedtime., 11/20/2021 [DISCONTINUED] potassium chloride 10 mEq/100 mL IVPB, daily., Unknown SOCIAL HISTORY Ms. Collins reports that she quit smoking about 42 years ago. Her smoking use included cigarettes. She started smoking about 56 years ago, she smoked 1-3 packs a day for 14 years. She has never used smokeless tobacco. She reports current alcohol use of about 10.0 standard drinks per week. She reports that she does not use drugs. FAMILY HISTORY Family History Problem Relation Age of Onset Diabetes Maternal Grandfather Hypertension Father Coronary artery disease Father Coronary artery disease Brother Hyperlipidemia Sister Breast cancer Sister Lymphoma Sister Breast cancer Mother Breast cancer Sister Colon cancer Sister Lung cancer Sister Breast cancer Sister Breast cancer Maternal Grandmother deceaced Breast cancer Paternal Grandmother OBJECTIVE VITAL SIGNS: Temperature: 36.4 Heart Rate: 66 Resp Rate: 14 Blood Pressure: 96/54 SpO2: 95 Flow Rate: Room air Body mass index is 37.52 kg/m??. PHYSICAL EXAMINATION General: Appropriate, cooperative, appears stated age. Resting comfortably reclined in bed. Heart: Regular rate and rhythm. Grade 2/6 systolic ejection murmur. Positive peripheral pulses. No peripheral extremity edema. JVD difficult to assess due to body habitus. Right IJ is non-bruised and nontender. Lungs: Clear to auscultation bilaterally, decreased breath sounds in bilateral lower lobes. No wheezing, rhonchi or rales. On room air. No cough. Abdomen: Soft, non-distended, non-tender to palpation throughout. No rebound tenderness or guarding.Positive bowel sounds. Musculoskeletal/Joints: No gross motor deficits. No joint erythema, swelling, tenderness. Mental: Alert and oriented to person place time and situation. Good historian. Neuro: CN II-XII grossly intact. Skin: Warm, dry, color normal for race. Right radial artery access for LHC is without tenderness or bruising. Eyes: No scleral icterus. EOMi LABS Hgb: 11.8 WBC: 4.9 Plts: 123 K: 3.9 Na: 138 Creatinine: 0.79 GFR: 79 M.1 DIAGNOSTICS TTE 11/12/21 Moderate mitral valve regurgitation with calcified mitral annulus and mitral valve chordae. Mean diastolic gradient 4 mm Hg Mild aortic valve stenosis, gradient 7 mm Hg Mild tricuspid valve regurgitation Mildly enlarged LV chamber size with no regional wall abnormalities. LVEF 65% Severely enlarged LA size by visual estimate Normal RV chamber size with normal systolic function. RVSP 39 mm Hg. Normal IVC with normal inspiratory collapse No pericardial effusion LILLY 11/14/21 Calcified mitral annulus with focal calcification of the P3 scallop with restricted mobility Moderate mitral valve regurgitation Are mild calcific mitral stenosis, mean diastolic gradient 3 mm Hg No left atrial appendage thrombus No nyvlk-um-[id number] shunt at atrial level at rest or with Valsalva release ASSESSMENT / PLAN Coronary artery disease S/p BMS to mLAD (12/1999), MARLY to LAD (03/2005) to RCA (05/2005), to OM1 (07/2005) s/p angioplasty for in-stent restenosis (03/2008), to proximal RCA and mid RCA (11/14/20) Moderate mitral valve regurgitation Calcified mitral annulus and mitral valve chordae, mean diastolic gradient 4 mm Hg (TTE 11/12/21) Chronic diastolic heart failure, LVEF 65% Pulmonary hypertension RVSP 39 mm Hg (TTE 11/12/2021) Hypertension Hyperlipidemia Impaired fasting glucose, A1c 5.6% (11/12/21) Obstructive sleep apnea on CPAP Obesity, BMI > 35 Thrombocytopenia, unclear etiology Ms. Collins is a 71 y.o. female who presented to the cardiac laboratory equipment installer for LHC and RHC in the settingof progressing angina and for hemodynamic evaluation for her moderate mitral valve regurgitation. Coronary evaluation displayed significant stenosis of her proximal/ostial RCA , the procedure was terminated without intervention. She was admitted to the CARDS 3 service for initiation of IV heparin in anticipation of planned intervention on 11/22/21. She is well appearing without chest pain/pressure. She will proceed to the laboratory equipment installer tomorrow for planned PCI with Dr. Ocampo for her proximal/ostial RCA lesion. IV heparin was initiated for anticoagulation to help minimize risk of performing intervention to lesion tomorrow. Right heart catheretization was performed to evaluate current pharmacotherapy in order to optimize hemodynamics and volume status. Results have not been finalized. Mitral valve intervention may be deferred in the setting of coronary artery intervention. This may be re-evaluated after PCI. PLAN: Moderate intensity IV heparin NPO at midnight for planned PCI Continue anti-platelet therapy with aspirin 81 mg daily and Plavix 75 mg daily Continue other home medications including: Zetia 10 mg daily Lasix 20 mg twice daily, lisinopril 40 mg daily, rosuvastatin 40 mg daily, sertraline 100 mg daily, and verapamil 240 mg daily. VTE: IV heparin GI: not indicated Telemetry indication: PCU Code Status: Full Code Disposition: Home - self care Melinda Ochoa P.A.-C. 11/21/21 documented in this encounter Consult Notes Mary Pineda CEP - 11/23/2021 10:10 AM CDTAssociated Order(s): IP CONSULT TO CARDIAC REHABILITATION; IP CONSULT TO CARDIAC REHABILITATION Cardiac Rehabilitation Referral Reason for Visit: Cardiovascular Health Clinic consultation for referral to cardiac rehabilitation. Liaison met with the patient/family to discuss cardiac rehabilitation referral. Patient/family was provided with progressive verbal and printed home-going exercise guidelines. Patient/family understands and agrees with the exercise guidelines. 1. Participation in a Phase II cardiac rehabilitation program is recommended. Patient was informed about what cardiac rehabilitation has to offer and why it is beneficial. The plan of care for the rehabilitation program consists of risk factor modification, monitored and supervised exercise and assistance in the recovery process with ongoing education and support. [facility] 2. Eligibility: PCI 3. Exceptions/exclusions: None. 4. Referral: Patient agreed with referral to a cardiac rehabilitation program. Please see discharge order and/or letter for program details. 5. Appropriate referral information will be sent to the receiving cardiac rehabilitation program as applicable. Patient provided verbal authorization to send relevant materials to the cardiac rehab program. Patient referred to: [facility] [address] [place] [id number] P:[phone] F:[phone] Recommend that the patient check with insurance company to verify coverage of the cost of cardiac rehabilitation program visits. documented in this encounter Nursing Notes Alyssa Worley R.N. - 11/23/2021 12:30 PM CDT Shift Goals: Clinical Goals for the Shift: Patient will demonstrate an understanding of discharge education give during my shift. Problem: PAIN - ADULT Goal: PT VERBALIZES/DEMONSTRATES ADEQUATE COMFORT LEVEL OR BASELINE Outcome: Adequate for Discharge Problem: KNOWLEDGE DEFICIT Goal: Patient/family/caregiver demonstrates understanding of disease process, treatment plan, medications, and discharge instructions Outcome: Adequate for Discharge Problem: INFECTION - ADULT Goal: Absence of infection during hospitalization Outcome: Adequate for Discharge Problem: SKIN/TISSUE INTEGRITY Goal: Skin/Tissue integrity maintained or improved Outcome: Adequate for Discharge Goal: Oral and Nasal mucous membranes remain intact Outcome: Adequate for Discharge Problem: SAFETY ADULT Goal: Maintain a safe environment Outcome: Adequate for Discharge Problem: DISCHARGE PLANNING Goal: Patient discharge needs identified Outcome: Adequate for Discharge Problem: SAFETY ADULT - RISK FOR FALL AND OR FALL INJURY Goal: Patient remains free from fall/fall injury Outcome: Adequate for Discharge Identify possible barriers to meeting goals/advancing plan of care: none End of Shift Summary: Goal met. Patient demonstrated an understanding of discharge education/handouts given and able to teach back. All of patient and spouses questions answered adequately at the time of discharge. Patient discharged home to self care via wheelchair with transportation provided by her spouse. All of patients belongings sent with at the time of discharge. documented in this encounter OR Notes Brief Op Note - Carmen Kaplan M.D. - 11/22/2021 1:42 PM CDT Images from the original note were not included. PATIENT: Ivonne Collins : 1950 DATE OF SERVICE: 11/22/2021 Procedure: Coronary angiography. Laser atherectomy of ostial RCA Shockwave IVL of ostial RCA Successful IVUS guided PCI of ostial RCA with PTCA and stent deployment Implant Name Type Inv. Item Serial No. Furniture Finisher Lot No. LRB No. Used Action STNT RONYX MARLY RX [id number] - [id number] Cardiac Stent STNT RONYX MARLY RX [id number] [employer] [id number] Implanted Operators: Kishan Patricia M.D., Ph.D. Carmen Kaplan M.D. Indication: Unstable angina Access Site(s): Right common femoral artery, 6 [place] sheath(s). Protamine administered for reversal, sheath securedin place to be removed using manual compression for hemostasis in recovery Complications: No Recommendations: -Aspirin 81mg daily indefinitely barring any complications -Clopidogrel 75 mg daily for at least 12 months as part of dual antiplatelet therapy from 11/22/21 -Transfer back to cardiology floor service, anticipated discharge tomorrow Please see senior application security consultant cath operative report for further information. This is available under Document Viewer as Diagnostic Report - Cath/EP. Code status: FULL, until time of discharge If clinical status changes, please contact the proceduralist to discuss reversal of code status. Carmen Kaplan M.D. 11/22/21 documented in this encounter Miscellaneous Notes Hospital Course - Melinda Ochoa P.A.-C. - 11/21/2021 1:05 PM CDT Ms. Collins is a 71-year-old female who presented to the catheterization lab for right and left heart catheretization. 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 Briefly, Ms. Collins presented to an outside emergency department on 11/01/21 for significant dyspneaand diaphoresis. She was admitted for flash pulmonary edema. She was diuresed and empirically treated with ceftriaxone and azithromycin for possible infection. An echocardiogram was performed on 11/02 which displayed moderate-severe mitral regurgitation, LVEF preserved at 60%. It was felt that her mitral regurgitation was the contributor to her heart failure which manifested as pulmonary edema. They recommended urgent evaluation of her mitral valve for intervention in the outpatient setting. She was seen by [facility] outpatient cardiology on 11/14 where it was recommended that her echocardiogram berepeated and she undergo cardiac CT angiogram for further characterization of her mitral valve anatomy; CT showed severe mitral anular calcification. On 11/16 she had a telephone visit with her outpatient primary Hadoop Infrastructure Architect where she endorsed left-sided chest discomfort with associated left scapular/jaw discomfort with higher levels of exertion which raised concerns for cardiac ischemia. On 11/20 shewas seen in the cardiology clinic where it was felt that her exertional angina and possible myocardial ischemia could have precipitated to hospitalization on 11/01 in the setting of underlying heart failure with mitral valve disease. A left and right heart catheretization was recommended, which she proceeded to on 11/21/21. In the cardiac catheretization lab, a discrete lesion was identified in her proximal/ostial RCA. It was felt that she would benefit from the initiation of IV heparin prior to intervention. Her right heart catheterization was performed as well, official report was still pending at time of discharge. Upon admission, she remained hemodynamically stable and symptom free. She was initiated on IV heparin to minimize risk of complications during intervention. She underwent successful percutaneous intervention of her proximal/ostial RCA on 11/22. The preintervention stenosis was 99%, the post interventionstenosis was 0%. Access site was her right femoral artery, her site was without hematoma or tenderness upon discharge. Her kidney function was monitored and remained stable. She should remain on dual-antiplatelet therapy for one year, end date being 11/22/2022. For her heart failure, the addition of an SGLT-2 inhibitor was considered, however the ais-ae-gedetdandt was greater than $700 for a 3 month supply. Spironolactone was not initiated due to intermittent hypotension. She reported that she increased her previous home lasix of 20 mg daily to 20 mg twice daily. This was the dosing that was continued during hospitalization; she remained euvolemic so she was discharged at that dose. Additionally, she did not require any potassium supplementation on that diuretic dose, so her home maintenance supplementation was decreased to 10 mEq daily. Of note, thrombocytopenia was identified upon admission. Her platelet count on 11/12 had been 192, however on admission it was 123. Recheck the following morning displayed a platelet count of 119. She denied easy bruising or bleeding, the cause of the thrombocytopenia is unclear at this time. It was decreased prior to starting heparin, so HIT syndrome was unlikely. Additionally, her platelet count remained stable through hospitalization while maintained on heparin. She was initiated on Plavix on 11/16/21, however she has been on dual antiplatelet therapy before without causing thrombocytopenia. Monitor in the outpatient setting and workup as indicated. Right heart catheretization was performed to evaluate current pharmacotherapy in order to optimize hemodynamics and volume status in the setting of mitral regurgitation. Further workup and interventional plans will continue in the outpatient setting. She was discharged to home on 11/23/21. documented in this encounter Plan of Treatment Scheduled Referrals Name Type Priority Associated Diagnoses Order S chedule External referral Outpatient Referral Routine Coronary Stent O rdered: cardiac rehab Status Post 11/23/2021 program (non-[place]) documented as of this encounter Procedures Procedure Name Priority Date/Time Associated Diagnosis Comme nts CBC WITHOUT Routine 11/23/2021 9:45 Results for this DIFFERENTIAL, B AM CDT procedure ar e in the results section. BASIC METABOLIC PANEL, Routine 11/23/2021 9:45 Re sults for this S/P AM CDT procedure are i n the results section. ECG Timed 11/22/2021 4:32 Results for this PM CDT procedure are i n the results section. ACT, POCT, B Routine 11/22/2021 4:31 Results for this PM CDT procedure are i n the results section. ADULT OXYGEN THERAPY Routine 11/22/2021 4:26 PM CDT ADULT OXYGEN THERAPY Routine 11/22/2021 4:26 PM CDT CARDIAC Routine 11/22/2021 4:17 Atherosclerotic Heart Res ults for this CATHETERIZATION PM CDT [facility] procedu re are in Coronary Artery the results Without Angina section. Pectoris CARDIAC Routine 11/22/2021 4:17 Atherosclerotic Heart Res ults for this CATHETERIZATION PM CDT [facility] procedu re are in Coronary Artery the results Without Angina section. Pectoris CARDIAC Routine 11/22/2021 4:17 Atherosclerotic Heart Res ults for this CATHETERIZATION PM CDT [facility] procedu re are in Coronary Artery the results Without Angina section. Pectoris CARDIAC Routine 11/22/2021 4:17 Atherosclerotic Heart Res ults for this CATHETERIZATION PM CDT [facility] procedu re are in Coronary Artery the results Without Angina section. Pectoris CARDIAC Routine 11/22/2021 4:17 Atherosclerotic Heart Res ults for this CATHETERIZATION PM CDT [facility] procedu re are in Coronary Artery the results Without Angina section. Pectoris ACT, POCT, B Routine 11/22/2021 4:07 Results for this PM CDT procedure are i n the results section. ACT, POCT, B Routine 11/22/2021 2:17 Results for this PM CDT procedure are i n the results section. ADULT OXYGEN THERAPY Routine 11/22/2021 8:01 AM CDT CBC WITHOUT Routine 11/22/2021 5:13 Results for this DIFFERENTIAL, B AM CDT procedure ar e in the results section. BASIC METABOLIC PANEL, Routine 11/22/2021 5:13 Re sults for this S/P AM CDT procedure are i n the results section. HEPARIN LEVEL ANTI-XA Timed 11/22/2021 5:12 Res ults for this ASSAY, P AM CDT procedure are i n the results section. PATIENT'S OWN Routine 11/21/2021 11:25 CPAP/BIPAP PM CDT HEPARIN LEVEL ANTI-XA Timed 11/21/2021 10:11 Re sults for this ASSAY, P PM CDT procedure are i n the results section. ADULT OXYGEN THERAPY Routine 11/21/2021 8:01 PM CDT CBC WITH DIFFERENTIAL, Timed 11/21/2021 3:37 Re sults for this B PM CDT procedure are i n the results section. MAGNESIUM, S Timed 11/21/2021 3:37 Results for this PM CDT procedure are i n the results section. BASIC METABOLIC PANEL, Timed 11/21/2021 3:37 Re sults for this S/P PM CDT procedure are i n the results section. ADULT OXYGEN THERAPY Routine 11/21/2021 2:14 PM CDT ADULT OXYGEN THERAPY Routine 11/21/2021 2:14 PM CDT ECHO - INTRAPROCEDURAL Routine 11/21/2021 1:05 IMAGES ONLY PM CDT CARDIAC Routine 11/21/2021 12:27 Impaired Fasting Results for this CATHETERIZATION PM CDT Glucose procedure are in Dyspnea Multifac torial the results Regurgitation Mi tral section. Chronic Diastolic (Congestive) Heart Failure (HCC) Pain Chest Ischemic Heart Chronic Disease CARDIAC Routine 11/21/2021 12:27 Impaired Fasting Results for this CATHETERIZATION PM CDT Glucose procedure are in Dyspnea Multifac torial the results Regurgitation Mi tral section. Chronic Diastolic (Congestive) Heart Failure (HCC) Pain Chest Ischemic Heart Chronic Disease CARDIAC Routine 11/21/2021 12:27 Impaired Fasting Results for this CATHETERIZATION PM CDT Glucose procedure are in Dyspnea Multifac torial the results Regurgitation Mi tral section. Chronic Diastolic (Congestive) Heart Failure (HCC) Pain Chest Ischemic Heart Chronic Disease documented in this encounter Results (ABNORMAL) CBC without Differential (11/23/2021 9:45 AM CDT) [facility] Method Time Signature Hemoglobin 11.3 (L) 11.6 - 11/23/2021 DTL 15.0 g/dL 10:17 AM CDT Hematocrit 35.6 35.5 - 11/23/2021 DTL 44.9 % 10:17 AM CDT Erythrocytes 4.15 3.92 - 11/23/2021 DTL 5.13 10:17 AM CDT x10(12)/L MCV 85.8 78.2 - 11/23/2021 DTL 97.9 fL 10:17 AM CDT RBC Distrib Width 13.2 12.2 - 11/23/2021 DTL 16.1 % 10:17 AM CDT Platelet Count 124 (L) 157 - 371 11/23/2021 DTL x10(9)/L 10:17 AM CDT Leukocytes 6.6 3.4 - 9.6 11/23/2021 DTL x10(9)/L 10:17 AM CDT Specimen Anatomical Collection Method Collection Time Receive d Time (Source) Location / / Volume Laterality Blood (Blood, 11/23/2021 9:45 AM 11/24/19 22 Venous) CDT 10:08 AM CDT Melinda Ochoa P.A.-C. LAB BLOOD ADD-ON Performing Organization Address City/State/ZIP Code Phon e Number [facility] - [address] [place] [phone] [facility] [place] [address] [facility] [address] [facility] (ABNORMAL) Basic Metabolic Panel (11/23/2021 9:45 AM CDT) athologist Signature Potassium, S 4.1 3.6 - 5.2 11/23/2021 DTL mmol/L 10:51 AM CDT Sodium, S 137 135 - 145 11/23/2021 DTL mmol/L 10:51 AM CDT Chloride, S 99 98 - 107 11/23/2021 DTL mmol/L 10:51 AM CDT Bicarbonate, S 28 22 - 29 11/23/2021 DTL mmol/L 10:51 AM CDT Anion Gap 10 7 - 15 11/23/2021 DTL 10:51 AM CDT BUN (Blood Urea 14 6 - 21 11/23/2021 DTL Nitrogen), S mg/dL 10:51 AM CDT Creatinine 0.82 0.59 - 11/23/2021 DTL 1.04 mg/dL 10:51 AM CDT Estimated GFR 75 >=60 11/23/2021 DTL (eGFR) mL/min/BSA 10:51 AM CDT Comment: Estimated GFR calculated using the 2020 CKD_EPI creatinine equation. Calcium, Total, S 8.8 8.8 - 10.2 mg/dL 11/23/2021 10:5 1 AM CDT DTL Glucose, S 154 (H) 70 - 140 mg/dL 11/23/2021 10:51 AM CDT DTL Specimen Anatomical Collection Method Collection Time Receive d Time (Source) Location / / Volume Laterality Blood (Blood, 11/23/2021 9:45 AM 11/24/19 22 Venous) CDT 10:26 AM CDT Melinda Ochoa P.A.-C. LAB BLOOD ADD-ON Performing Organization Address City/State/ZIP Code Phon e Number [facility] - 200 [place], [place] [address] [facility] [place] [address] [facility] 200 [facility] ECG 12 Lead (11/22/2021 4:32 PM CDT) P athologist Signature Ventricular Rate 79 BPM MUSE ECG/Min IA Interval 174 ms MUSE QRSD Interval 98 ms MUSE QT Interval 426 ms MUSE QTC Interval 488 ms MUSE P [place] 62 degrees MUSE R [place] 53 degrees MUSE T Wave [place] -2 degrees MUSE Specimen Anatomical Collection Method Collection Time Receive d Time (Source) Location / / Volume Laterality 11/22/2021 4:32 PM 4:51 CDT PM CDT Impressions MUSE - 11/22/2021 4:51 PM CDT Normal sinus rhythm Prolonged QT When compared with ECG of 12-NOV-2021 10 :11, QT has lengthened Reviewed by LOGAN Contreras Narrative This result has an attachment that is no t available. Procedure Note Stefano Talavera M.D. - 11/22/2021Form atting of this note might be different from the original. IMPRESSION: Normal sinus rhythm Prolonged QT When compared with ECG of 12-NOV-2021 10 :11, QT has lengthened Reviewed by LOGAN Contreras Carmen Kaplan M.D. ECG ORDERABLES Performing Organization Address City/[facility]/ZIP Code Phon e Number MUSE MUSE NA ACT (Activated Clotting Time), POCT (11/22/2021 4:31 PM CDT) P athologist Signature Activated 139 84 - 139 11/22/2021 PCSM Clotting Time, sec 4:38 PM CDT POCT Specimen Anatomical Collection Method Collection Time Receive d Time (Source) Location / / Volume Laterality Blood 11/22/2021 4:31 PM 2 4:38 CDT PM CDT Unknown Provider LAB POCT ORDERABLES - DEVICE Performing Organization Address City/State/ZIP Code Phon e Number [facility]OC [facility] [address] [place], [place] [address] LABS PCSM [facility] [place] [address] [place] P[place] [address] PERCUTANEOUS CORONARY INTERVENTION, LASER, INTRAVASCULAR ULTRASOUND, CORONARY [...] Melinda Ochoa P.A.-C. CV CARDIAC CATH PROCEDURES (ABNORMAL) ACT (Activated Clotting Time), POCT (11/22/2021 4:07 PM CDT) athologist Signature Activated 303 (H) 84 - 139 11/22/2021 PCSM Clotting Time, sec 4:14 PM CDT POCT Specimen Anatomical Collection Method Collection Time Receive d Time (Source) Location / / Volume Laterality Blood 11/22/2021 4:07 PM 2 4:14 CDT PM CDT Unknown Provider LAB POCT ORDERABLES - DEVICE Performing Organization Address City/[facility] Phon e Number POC RST [facility] [address] [place], [place] [address] LABS [place]CSM [place], [place] [phone] [place] [address] (ABNORMAL) ACT (Activated Clotting Time), POCT (11/22/2021 2:17 PM CDT) athologist Signature Activated 393 (H) 84 - 139 11/22/2021 PCSM Clotting Time, sec 2:24 PM CDT POCT Specimen Anatomical Collection Method Collection Time Receive d Time (Source) Location / / Volume Laterality Blood 11/22/2021 2:17 PM 2 2:24 CDT PM CDT Unknown Provider LAB POCT ORDERABLES - DEVICE Performing Organization Address City/[facility] Phon e Number POC RST [facility] IN[facility] [address] [place], [place] [address] LABS [place], [place] [phone] [place] [address] (ABNORMAL) Basic Metabolic Panel (11/22/2021 5:13 AM CDT) athologist Signature Potassium, S 3.9 3.6 - 5.2 11/22/2021 DTL mmol/L 6:21 AM CDT Sodium, S 138 135 - 145 11/22/2021 DTL mmol/L 6:21 AM CDT Chloride, S 103 98 - 107 11/22/2021 DTL mmol/L 6:21 AM CDT Bicarbonate, S 25 22 - 29 11/22/2021 DTL mmol/L 6:21 AM CDT Anion Gap 10 7 - 15 11/22/2021 DTL 6:21 AM CDT BUN (Blood Urea 13 6 - 21 11/22/2021 DTL Nitrogen), S mg/dL 6:21 AM CDT Creatinine 0.71 0.59 - 11/22/2021 DTL 1.04 mg/dL 6:21 AM CDT Estimated GFR 90 >=60 11/22/2021 DTL (eGFR) mL/min/BSA 6:21 AM CDT Comment: Estimated GFR calculated using the 2020 CKD_EPI creatinine equation. Calcium, Total, S 8.6 (L) 8.8 - 10.2 mg/dL 11/22/2021 6:21 AM CDT DTL Glucose, S 117 70 - 140 mg/dL 11/22/2021 6:21 AM CDT D TL Specimen Anatomical Collection Method Collection Time Receive d Time (Source) Location / / Volume Laterality Blood (Blood, 11/22/2021 5:13 AM 11/23/19 6:04 Venous) CDT AM CDT Melinda Ochoa P.A.-C. LAB BLOOD ADD-ON Performing Organization Address City/State/ZIP Code Phon e Number [facility] - [address] [place], [place] [address] [facility] [place] [address] [facility] [address] (ABNORMAL) CBC without Differential (11/22/2021 5:13 AM CDT) Patholo gist Method Time Signature Hemoglobin 11.7 11.6 - 11/22/2021 DTL 15.0 g/dL 6:34 AM CDT Hematocrit 35.9 35.5 - 11/22/2021 DTL 44.9 % 6:34 AM CDT Erythrocytes 4.19 3.92 - 11/22/2021 DTL 5.13 6:34 AM CDT x10(12)/L MCV 85.7 78.2 - 11/22/2021 DTL 97.9 fL 6:34 AM CDT RBC Distrib Width 13.6 12.2 - 11/22/2021 DTL 16.1 % 6:34 AM CDT Platelet Count 119 (L) 157 - 371 11/22/2021 DTL x10(9)/L 6:34 AM CDT Leukocytes 5.5 3.4 - 9.6 11/22/2021 DTL x10(9)/L 6:34 AM CDT Specimen Anatomical Collection Method Collection Time Receive d Time (Source) Location / / Volume Laterality Blood (Blood, 11/22/2021 5:13 AM 11/23/19 5:55 Venous) CDT AM CDT Melinda Ochoa P.A.-C. LAB BLOOD ADD-ON Performing Organization Address City/State/ZIP Code Phon e Number [facility] - 200 [place], [place] [address] [place] [address] [place] [address] [facility] 200 [facility] Heparin Anti-Xa Assay (11/22/2021 5:12 AM CDT) P athologist Signature Heparin 0.43 IU/mL 11/22/2021 DT Anti-Xa, P 6:15 AM CDT Comment: UFH [...] Laterality Blood (Blood, 11/22/2021 5:12 AM 11/23/19 22 5:57 Venous) CDT AM CDT Harjinder Tomas APRN, C.N.P. LAB BLOOD NON ADD-ON Performing Organization Address [facility] Phon e Number [facility] - [phone] [place] [address] Heparin Anti-Xa Assay (11/21/2021 10:11 PM CDT) P athologist Signature Heparin 0.32 IU/mL 11/21/2021 DTL Anti-Xa, P 10:39 PM CDT Comment: UFH therapeutic range: ?? 0.30-0.70 [...] / / Volume Laterality Blood (Blood, 11/21/2021 10:11 11/21/2021 Venous) PM CDT 10:26 PM CDT Melinda Ochoa P.A.-C. LAB BLOOD NON ADD-ON Performing Organization Address City/State/ZIP Code Phon e Number [facility] - [phone] [place] [address] Magnesium (11/21/2021 3:37 PM CDT) P athologist Signature Magnesium, S 2.1 1.7 - 2.3 11/21/2021 DTL mg/dL 5:03 PM CDT Specimen Anatomical Collection Method Collection Time Receive d Time (Source) Location / / Volume Laterality Blood (Blood, 11/21/2021 3:37 PM 11/22/19 4:44 Venous) CDT PM CDT Melinda Ochoa P.A.-C. LAB BLOOD ADD-ON Performing Organization Address City/State/ZIP Code Phon e Number [facility] - [address] [place], [place] [address] [facility] [place] [address] [facility] [address] [facility] (ABNORMAL) CBC with Differential, Blood (11/21/2021 3:37 PM CDT) [facility] Method Time Signature Hemoglobin 11.8 11.6 - [...] P.A.-C. LAB BLOOD ADD-ON Performing Organization Address City/State/ZIP Code Phon e Number [facility] - [address] [address] [facility] 200 [facility] (ABNORMAL) Basic Metabolic Panel (11/21/2021 3:37 PM CDT) P athologist Signature Potassium, S 3.9 3.6 - 5.2 11/21/2021 DTL mmol/L 5:03 PM CDT Sodium, S 138 135 - 145 11/21/2021 DTL mmol/L 5:03 PM CDT Chloride, S 102 98 - 107 11/21/2021 DTL mmol/L 5:03 PM CDT Bicarbonate, S 27 22 - 29 11/21/2021 DTL mmol/L 5:03 PM CDT Anion Gap 9 7 - 15 11/21/2021 DTL 5:03 PM CDT BUN (Blood Urea 13 6 - 21 11/21/2021 DTL Nitrogen), S mg/dL 5:03 PM CDT Creatinine 0.79 0.59 - 11/21/2021 DTL 1.04 mg/dL 5:03 PM CDT Estimated GFR 79 >=60 11/21/2021 DTL (eGFR) mL/min/BSA 5:03 PM CDT Comment: Estimated GFR calculated using the 2020 CKD_EPI creatinine equation. Calcium, Total, S 8.4 (L) 8.8 - 10.2 mg/dL 11/21/2021 5:03 PM CDT DTL Glucose, S 132 70 - 140 mg/dL 11/21/2021 5:03 PM CDT D TL Specimen Anatomical Collection Method Collection Time Receive d Time (Source) Location / / Volume Laterality Blood (Blood, 11/21/2021 3:37 PM 11/22/19 22 4:44 Venous) CDT PM CDT Melinda Ochoa P.A.-C. LAB BLOOD ADD-ON Performing Organization Address City/State/ZIP Code Phon e Number [facility] - [address] [place] [phone] [place] [address] [facility] [address] Echo - Intraprocedural Images Only (11/21/2021 1:05 [...] ft anterior descending artery and second septal cross tie tram loader. RADIATION DOSE DATA Procedure cumulative skin dose (mGy): 64 6.55 Procedure cumulative dose area product ( Gy-cm2): 32.96 Fluoro Time (Min): 17.61 CONTRAST DOSE DATA IOHEXOL 350 MG IODINE/ML INTRAVENOUS RAMIREZ UTION: 110mL For the complete report, see the Order-L evel Documents. Venkata Mayen M.D. 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 Impaired Fasting Glucose Dyspnea Multifactorial Regurgitation 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) Pain Chest 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 documented in this encounter Admitting Diagnoses Diagnosis Impaired Fasting Glucose Dyspnea On Exertion Ischemic Heart Chronic Disease Regurgitation 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) Pain Chest Cardiac Disease Atherosclerotic Heart Disease Of [place] Coronary Artery Without Angina Pectoris documented in this encounter Administered Medications Inactive Administered Medications - up to 3 most recent administrations Medication Order MAR Action Action Date Dose Rate Site aspirin 81 mg chewable tablet - ADS Over ride Pull Starting on Fri11/21/21 at 0905, For 1 dose, Created b y cabinet override aspirin chewable tablet 243 mg Given 11/21/2021 9:15 AM CDT 243 mg 243 mg, oral, Once, On Fri11/21/21 at 0915, For 1 dose, Preprocedure (CV) aspirin chewable tablet 243 mg Given 11/22/2021 12:49 PM CDT 243 mg 243 mg, oral, Once, On Cortney 11/22/21 at 1300, For 1 dose, Preprocedure (CV) aspirin chewable tablet 81 mg Given 11/23/2021 8:59 AM CDT 81 mg 81 mg, oral, Daily, First dose on Cortney 11/22/21 at 0900 Given 11/22/2021 9:23 AM CDT 81 mg atropine injection 0.5 mg 0.5 mg, intravenous, Every 5 min PRN, Symptomatic ji ycardia with hypotension, Starting on Fri11/22/21 at 1625, For 4 doses, Postproce dure (CV) bisacodyL suppository 10 mg (DULCOLAX) 10 mg, rectal, Daily PRN, constipation, Starting on u 11/22/21 at 1625, Postprocedure (CV), PO route preferred. Constipation unrelieved by docusate sodium (COLACE) if ordered. If results needed w ithin 2 hours - give rectal suppository. clopidogreL tablet 75 mg (PLAVIX) Given 11/23/2021 8:59 AM CDT 75 mg 75 mg, oral, Daily, First dose on Cortney 11/22/21 at 0900 Given 11/22/2021 9:24 AM CDT 75 mg ezetimibe tablet 10 mg (ZETIA) Given 11/22/2021 8:03 PM CDT 10 mg 10 mg, oral, Daily at bedtime, First dose on Fri11/21/21 at 2100 Given 11/21/2021 8:36 PM CDT 10 mg fentaNYL injection 25 mcg (SUBLIMAZE) 25 mcg, intravenous, Once as needed, mod erate pain or score 4-6 of 10, severe pain or score 7-10 of 10, Until sheath remova l., Starting on Fri11/22/21 at 1625, For 1 dose, Postprocedure (CV) furosemide tablet 20 mg (LASIX) Given 11/23/2021 12:34 PM CDT 20 mg 20 mg, oral, 2 times daily, First dose on Fri11/21/21 at 1415 Given 11/23/2021 6:17 AM CDT 20 mg Given 11/22/2021 11:28 AM CDT 20 mg heparin (porcine) 100 Rate/Dose Verify 11/22/2021 11:00 12 Units/kg /hr 11.5 mL/hr Units/mL in NaCl 0.45% AM CDT 250 mL infusion 0-40 Units/kg/hr ? 95.8 kg Dosing weight (0-38.32 mL/hr), intravenous, Continuous, Starting on Fri11/21/21 at 1545, 25,000 Units in 250 mL, Intensity type: Moderate, Starting Dose (units/kg/hr): 12, Anti-Xa < 0.1: Adjust Dose (Units/kg/hr) by: 4, Anti-Xa < 0.1: Loading Dose (Units/kg): 60, Anti-Xa < 0.1: Repeat anti-Xa: 6 hours, Anti-Xa 0.1-0.19: Adjust Dose (Units/kg/hr) by: 2, Anti-Xa 0.1-0.19: Loading Dose (Units/kg): 30, Anti-Xa 0.1-0.19: Repeat anti-Xa: 6 hours, Anti-Xa 0.2-0.5: Adjust Dose (Units/kg/hr) by: 0, Anti-Xa 0.2-0.5: Repeat anti-Xa: 6 hours. If two consecutive therapeutic result, re-check next AM., Anti-Xa > 0.19: Loading Dose (Units/kg): 0, Anti-Xa 0.51-0.6: Adjust Dose (Units/kg/hr) by: -1, Anti-Xa 0.51-0.6: Repeat anti-Xa: 6 hours, Anti-Xa 0.61-0.9: Hold Infusion: Stop infusion for 1 hour, Anti-Xa 0.61-0.9: Adjust Dose (Units/kg/hr) by: -2, Anti-Xa 0.61-0.9: Repeat anti-Xa: 6 hours after Heparin resumed, Anti-Xa >= 0.91: Hold Infusion: Stop infusion for 2 hours, Anti-Xa >= 0.91: Adjust Dose (Units/kg/hr) by: -4, Anti-Xa >= 0.91: Repeat anti-Xa: 6 hours after Heparin resumed Rate/Dose Verify 11/22/2021 9:00 AM CDT 12 Units/kg/hr 11.5 mL/hr Rate/Dose Change 11/22/2021 6:28 AM CDT 12 Units/kg/hr 11.5 mL/hr naloxone injection 0.2 mg (NARCAN) 0.2 mg, intravenous, As needed, respirat ory depression, Starting on Cortney 11/22/21 at 1625, Postprocedure (CV), For RASS Score -4 or less, respiratory rate of less than 8 breaths/min. Notify provider/service and rapid respo nse team (if available at institution). promethazine injection 6.25 mg (PHENERGA N) 6.25 mg, intravenous, Every 6 hours PRN, nausea, vomiting, Starting on Cortney 11/22/21 at 1625, Postprocedure (CV), RASS must b e -2 or higher to administer. Reassess for nausea/vomiting after at least 10 minutes. (order for antiemetic medication administration Ondansetron then Promethazine). rosuvastatin tablet 40 mg (CRESTOR) Given 11/22/2021 8:04 PM CDT 40 mg 40 mg, oral, Daily at bedtime, First dose on Fri11/21/21 at 2100 Given 11/21/2021 8:36 PM CDT 40 mg sertraline tablet 100 mg (ZOLOFT) Given 11/22/2021 8:03 PM CDT 100 mg 100 mg, oral, Daily at bedtime, First dose on Fri11/21/21 at 2100 Given 11/21/2021 8:36 PM CDT 100 mg sodium chloride 0.9 % injection 3 mL Given 11/23/2021 8:59 AM CDT 3 mL 3 mL, intravenous, Every 12 hours scheduled, First dose on Fri11/21/21 at 2100, Peripheral Intravenous Catheter and Rapid Infusion Catheter, when no infusion to maintain patency Given 11/22/2021 8:10 PM CDT 3 mL Given 11/22/2021 9:24 AM CDT 3 mL verapamiL ER tablet 240 mg (CALAN-SR) Given 11/21/2021 8:36 PM CDT 240 mg 240 mg, oral, Daily at bedtime, First dose on Fri11/21/21 at 2100, See tube feeding guidelines for tube feeding administration instructions. documented in this encounter Active and Recently Administered Medications Times are shown in CDT. Scheduled Medication Order 11/21/2021 11/22/2021 11/23/2021 aspirin chewable tablet 243 mg (COMPLETED) 15 (Given - Provider: Leopoldo Ross R.N.) 243 mg, oral, Once, On Fri11/21/21 at 0915, For 1 dose, Preproce dure (CV) aspirin chewable tablet 243 mg (COMPLETED) 1249 (Given - Provider: Mary Rojas R.N., [facility]) 243 mg, oral, Once, On Fri11/22/21 at 1300, For 1 dose, Preproced ure (CV) aspirin chewable tablet 81 mg 0923 (Give n - Provider: Annel Phelan R.N.)1238 (MAR Hold - Provider: Transfer Provider, Automatic - Reason: Patient not available)1738 (MAR Unhold - Provider: Transfer Provider, Automatic) 0859 (Given - Provider: Alyssa Worley R.N.) 81 mg, oral, Daily, First dose on Fri11/22/21 at 0900 clopidogreL tablet 75 mg (PLAVIX) 0924 ( Given - Provider: Annel Phelan R.N.)1238 (MAR Hold - Provider: Transfer Provider, Automatic - Reason: Patient not available)1738 ([facility] Unhold - Provider: Transfer Provider, Automatic) 0859 (Given - Provider: Alyssa Worley R.N.) 75 mg, oral, Daily, First dose on Fri11/22/21 at 0900 ezetimibe tablet 10 mg (ZETIA) 2035 (Given - Provider: Radha Ha RAguilarNAguilar) 1238 (MAR Hold - Provider: Transfer Provider, Automatic - Reason: Patient not available)1738 (MAR Unhold - Provider: Transfer Provider, Automatic)2002 (Given - Provider: Blaise Moses R.N.) 10 mg, oral, Daily at bedtime, First dose on Fri11/21/21 at 2100 furosemide tablet 20 mg (LASIX) 1546 (Given - Provider: Val Motley RAguilarNAguilar) 0643 (Given - Provider: Blaise Moses R.N.)1128 (Given - Provider: Annel Phelan R.N.)1238 (MAR Hold - Provider: Transfer Provider, Automatic - Reason: Patient not available)1738 (MAR Unhold - Provider: Transfer Provider, Automatic) 0617 (Given - Provider: Blaise Moses R.N.)1234 (Given - Provider: Alyssa Worley R.N.) 20 mg, oral, 2 times daily, First dose on Fri11/21/21 at 1415 lisinopriL tablet 40 mg (PRINIVIL,ZESTRIL) 0954 (Held by provider - Provider: Melinda Ochoa P.A.-C. - Comment: Labile blood pressures)0959 (Not Given - Provider: Annel Phelan R.N. - Reason: See Provider Order) 0900 (Not Given - Provider: Alyssa Worley R.N. - Reason: See Provider Order - Comment: Marked as Held by Provider)1602 (Unheld by provider - Provider: Discharge Provider, Automatic) 40 mg, oral, Daily, First dose on 04/14 at 0900, lisinopril 40 mg oral daily was interchanged for ramipril NaCl 0.9 % bolus 250 mL 1630 (Due) 250 mL, intravenous, at 1,000 mL/hr, Adm inister over 15 Minutes, Once, On Fri11/22/21 at 1630, For 1 dose, Postprocedure (CV) rosuvastatin tablet 40 mg (CRESTOR) 2035 (Given - Prov ider: Radha Ha RNila) 1238 (MAY Hold - Provider: Transfer Prov ider, Automatic - Reason: Patient not available)1738 (MAY Unhold - Provider: Transfer Provider, Automatic)2003 (Given - Provider: Blaise Moses R.N.) 40 mg, oral, Daily at bedtime, First dose on Fri11/21/21 at 2100 sertraline tablet 100 mg (ZOLOFT) 2035 (Given - Provid er: Radha Ha RAguilarNAguilar) 1238 (MAY Hold - Provider: Transfer Prov ider, Automatic - Reason: Patient not available)1738 (MAY Unhold - Provider: Transfer Provider, Automatic)2002 (Given - Provider: Blaise Moses R.N.) 100 mg, oral, Daily at bedtime, First dose on Fri11/21/21 at 210 0 sodium chloride 0.9 % injection 3 mL 2040 (Given - Pro vider: Radha Ha R.N.) 0924 (Given - Provider: Annel campos R.N.)1238 (MAY Hold - Provider: Transfer Provider, Automatic - Reason: Patient not available)1738 (MAY Unhold - Provider: Transfer Provider, Automatic)2009 (Given - Provider: Blasie Moses R.N.) 0859 (Given - Provider: Alyssa hartman RAguilarNAguilar) 3 mL, intravenous, Every 12 hours schedu led, First dose on Fri11/21/21 at 2100, Peripheral Intravenous Catheter and Rapid Infusion Catheter, when no infusion to maintain patency verapamiL ER tablet 240 mg (CALAN-SR) 2035 (Given - Pr ovider: Radha Ha R.N.) 1238 (MAY Hold - Provider: Transfer Prov ider, Automatic - Reason: Patient not available)173 (MAY Unhold - Provider: Transfer Provider, Automatic)2054 (Not Given - Provider: Blaise Moses R.N. - Reason: See Provider Order - Comment: Hypotensiv 240 mg, oral, Daily at bedtime, First do se on Fri11/21/21 at 2100, See tube feeding guidelines for tube feeding administration instructions. e, Provider approved) Continuous Medication Order 11/21/2021 11/22/2021 11/23/2021 heparin (porcine) 100 Units/mL in NaCl 0.45% 250 mL in fusion (CANCELED) 1614 (New Bag - Provider: Elena Motley R.N.)2000 (Rate/Dose Verify - Provider: Radha Ha R.N.)2200 (Rate/Dose Verify - Provider: Radha Ha R.N.)2252 (Rate/Dose Change - Provider: Radha Ha R.N.) 0628 (Rate/Dose Change - Provider: Blaise Moses R.N.)0900 (Rate/Dose Verify - Provider: Annel Phelan R.N.)1100 (Rate/Dose Verify - Provider: Annel Phelan R.N.)1333 (Stopped - [facility]) 0-40 Units/kg/hr ? 95.8 kg Dosing weight (0-38.32 mL/hr), intravenous, Continuous, Starting on Fri11/21/21 at 1545, 25,000 Units in 250 mL, Intensity type: Moderate, Starting Dose (units/kg/hr): 12, An ti-Xa < 0.1: Adjust Dose (Units/kg/hr) b y: 4, Anti-Xa < 0.1: Loading Dose (Units/kg): 60, Anti-Xa < 0.1: Repeat anti-Xa: 6 hours, Anti-Xa 0.1-0.19: Adjust Dose (Units/kg/hr) by: 2, Anti-Xa 0.1- 0.19: Loading Dose (Units/kg): 30, Anti- Xa 0.1-0.19: Repeat anti-Xa: 6 hours, Anti-Xa 0.2-0.5: Adjust Dose (Units/kg/hr) by: 0, Anti-Xa 0.2-0.5: Repeat anti- Xa: 6 hours. If two consecutive therapeutic r esult, re-check next AM., Anti-Xa > 0.19 : Loading Dose (Units/kg): 0, Anti-Xa 0.51-0.6: Adjust Dose (Units/kg/hr) by: -1, Anti-Xa 0.51-0.6: Repeat anti-Xa: 6 hours, Anti-Xa 0.61-0.9: Hold Infusion: S top infusion for 1 hour, Anti-Xa 0.61-0. 9: Adjust Dose (Units/kg/hr) by: -2, Anti-Xa 0.61-0.9: Repeat anti-Xa: 6 hours after Heparin resumed, Anti-Xa >= 0.91: Hold Infusion: Stop infusion for 2 hours , Anti-Xa >= 0.91: Adjust Dose (Units/kg /hr) by: -4, Anti-Xa >= 0.91: Repeat anti-Xa: 6 hours after Heparin resumed PRN Medication Order 11/21/2021 11/22/2021 11/23/2021 acetaminophen tablet 500 mg (TYLENOL) 12 38 (MAY Hold - Provider: Transfer Provider, Automatic - Reason: Patient not available)1738 (MAY Unhold - Provider: Transfer Provider, Automatic) 500 mg, oral, Every 6 hours PRN, mild pa in or score 1-3 of 10, fever, Notify service prior to first administration for fever, Starting on Fri11/21/21 at 1414 atropine injection 0.5 mg 0.5 mg, intravenous, Every 5 min PRN, Sy mptomatic bradycardia with hypotension, Starting on Cortney 11/22/21 at 1625, For 4 doses, Postprocedure (CV) bisacodyL DR tablet 10 mg (DULCOLAX) 123 8 ([facility] Hold - Provider: Transfer Provider, Automatic - Reason: Patient not available)1738 ([facility] Unhold - Provider: Transfer Provider, Automatic) 10 mg, oral, Daily PRN, constipation, St arting on Fri11/21/21 at 1414, PO route preferred. Constipation unrelieved by docusate sodium (COLACE) if ordered. If results needed within 2 hours give rectal joy ppository if ordered. Swallow whole. Do NOT crush, chew, or spli t tablet. bisacodyL suppository 10 mg (DULCOLAX) 10 mg, rectal, Daily PRN, constipation, Starting on Cortney 11/22/21 at 1625, Postprocedure (CV), PO route preferred. Constipation unrelieved by docusate sodium (COLACE) if ordered. If results needed within 2 hours - give rectal suppository. calcium carbonate chewable tablet 400 mg of calcium (TUMS) 1238 ([facility] Hold - Provider: Transfer Provider, Automatic - Reason: Patient not available)1738 ([facility] Unhold - Provider: Transfer Provider, Automatic) 400 mg of calcium, oral, Every 2 hour IA N, indigestion, Not to exceed 12 tablets in 24 hours, Starting on Fri11/21/21 at 1414, Doses listed are in mg of elemental calcium. Take with food. 500 mg calcium carbonate contains 200 mg of elemental calcium. docusate sodium capsule 100 mg (COLACE) 1238 ([facility] Hold - Provider: Transfer Provider, Automatic - Reason: Patient not available)1738 ([facility] Unhold - Provider: Transfer Provider, Automatic) 100 mg, oral, 2 times daily PRN, constip ation, Starting on Fri11/21/21 at 1413, Do NOT crush or chew. fentaNYL injection (SUBLIMAZE) (CANCELED) 1050 (Given - Provider: Philly Donnelly, R.N.)1123 (Given - Provider: Emily Joyner RCullen.) As needed, Starting on Fri11/21/21 at 1050, Intraprocedure (CV) fentaNYL injection 25 mcg (SUBLIMAZE) (CANCELED) 1352 (Given - Provider: Bruna Yanez R.N.)1355 (Given - Provider: Bruna Yanez R.N.)1419 (Given - Provider: Bruna Yanez R.N.)1432 (Given - Provider: Bruna Yanez R.N.)1452 (Given - Provider: Bruna Yanez R.N.) 25 mcg, intravenous, Every 2 min PRN, se dation, Administer over 1 minute immediately prior to the procedure. May repeat every 2 minutes to a maximum of 200 mcg, until pain score of 3 or less, or until t 154 1 (Given - Provider: Andrea Munoz R.N., CCRN, C.S.C.)1600 (Given - Provider: Andrea Munoz R.N., CCRN, C.S.C.)1607 (Canceled Entry - Provider: Andrea Munoz R.N., CCRAgnes, C.S.C.) he patient meets the pain comfort goal. Do not give if respiratory rate is less than 8 breaths/minute, Starting on Cortney 11/22/21 at 1351, Intraprocedure (CV) fentaNYL injection 25 mcg (SUBLIMAZE) 25 mcg, intravenous, Once as needed, mod erate pain or score 4-6 of 10, severe pain or score 7-10 of 10, Until sheath removal., Starting on Cortney 11/22/21 at 1625, For 1 dose, Postprocedure (CV) heparin (porcine) 1,000 unit/mL injection (CANCELED) 1 134 (Given - Provider: Philly Donnelly R.N.)1159 (Given - Provider: Philly Donnelly R.N.) As needed, Starting on Fri11/21/21 at 1134, Intraprocedure (CV) heparin (porcine) 1,000 unit/mL injection (CANCELED) 1403 (Given - Provider: Bruna Yanez R.N.)1552 (Given - Provider: Andrea Munoz R.N., CCRAgnes, C.S.C.) As needed, Starting on Cortney 11/22/21 at 1403, Intraprocedure (CV) iohexoL 350 mg iodine/mL solution (OMNIPAQUE) (CANCELE D) 1220 (Given - Provider: Raysa Steen M.D.) As needed, Starting on Fri11/21/21 at 1220, Intraprocedure (CV) iohexoL 350 mg iodine/mL solution (OMNIPAQUE) (CANCELED) 1608 (Given - Provider: Carmen Kaplan M.D.) As needed, Starting on Fri11/22/21 at 1608, Intraprocedure (CV) lidocaine 10 mg/mL (1 %) injection (XYLOCAINE) (CANCEL ED) 1107 (Given - Provider: Raysa Steen M.D.)1123 (Given - Provider: Raysa Steen M.D.) As needed, Starting on Fri11/21/21 at 1107, Intraprocedure (CV) lidocaine 10 mg/mL (1 %) injection (XYLOCAINE) (CANCELED) 1359 (Given - Provider: Carmen Kaplan M.D.) As needed, Starting on Fri11/22/21 at 1359, Intraprocedure (CV) midazolam (PF) injection (VERSED) (CANCELED) 1104 (Giv en - Provider: Emily Joyner R.N.) As needed, Starting on Fri11/21/21 at 1104, Intraprocedure (CV) midazolam (PF) injection 0.5 mg (VERSED) (COMPLETED) 1 050 (Given - Provider: Philly Donnelly RNila) 0.5 mg, intravenous, Once as needed, sed ation, Starting on Fri11/21/21 at 1049, For 1 dose, Intraprocedure (CV) midazolam (PF) injection 0.5 mg (VERSED) (CANCELED) 11 47 (Given - Provider: Philly Donnelly R.N.) 0.5 mg, intravenous, Every 2 min PRN, se dation, RASS -1, Starting on Fri11/21/21 at 1049, Intraprocedure (CV), May repeat every 2 minutes for a maximum of 5 mg. Do not give if respiratory rate is less than 8 breaths/minute. midazolam (PF) injection 1 mg (VERSED) (CANCELED) 1352 (Given - Provider: Bruna Yanez R.N.)1355 (Given - Provider: Bruna Yanez R.N.)1412 (Given - Provider: Bruna Yanez R.N.)1424 (Given - Provider: Bruna Yanez R.N.)1442 (Given - Provider: Bruna Yanez R.N.) 1 mg, intravenous, Every 2 min PRN, amador tion, RASS 0, Starting on Cortney 11/22/21 at 1351, Intraprocedure (CV), May repeat every 2 minutes for a maximum of 5 mg. Do not give if respiratory rate is less than 8 breaths/minute. 1453 (Given - Provider: Bruna Yanez R.N.)1541 (Given - Provider: Andrea Munoz R.N., CCRN, C.S.C.)1600 (Given - Provider: Andrea Munoz R.N., CCRN, C.S.C.)1607 (Canceled Entry - Provider: Andrea Munoz R.N., CCRN, C.S.C.) morphine injection (CANCELED) 1503 (Give n - Provider: Bruna Yanez R.N.)1528 (Given - Provider: Bruna Yanez R.N.) As needed, Starting on Cortney 11/22/21 at 1503, Intraprocedure (CV) naloxone injection 0.2 mg (NARCAN) 0.2 mg, intravenous, As needed, respirat ory depression, Starting on Cortney 11/22/21 at 1625, Postprocedure (CV), For RASS Score -4 or less, respiratory rate of less than 8 breaths/min. Notify provider/servic e and rapid response team (if available at institution). nitroglycerin SL tablet (NITROSTAT) (CANCELED) 1122 (Tawana caseen - Provider: Emily Joyner R.N.) As needed, Starting on Fri11/21/21 at 1122, Intraprocedure (CV) nitroglycerin SL tablet 0.4 mg (NITROSTAT) 1238 ([facility] Hold - Provider: Transfer Provider, Automatic - Reason: Patient not available)1738 ([facility] Unhold - Provider: Transfer Provider, Automatic) 0.4 mg, sublingual, Every 5 min PRN, radha st pain, Starting on Fri11/21/21 at 1414, Notify prescriber if pain unrelieved after 2 doses.Do not administer in patients with severe aortic stenosis, pulmonary arterial hypertension, obstructive hyper trophic cardiomyopathy, or those undergoing a coronary artery spasms study. Do not administer for patients on phosphodiesterace-5 (PDE5) inhibitors (e.g. sildenaf il (VIAGRA, REVATIO), tadalafil (CIALIS, ADCIRCA), vardenafil (Levitra), avanafil (STENDRA) or soluble guanylate cyclase inhibitors [e.g. riociguat (ADEMPAS)] Dissolve under the tongue. Do NOT crush, ch ew, split or swallow tablet., Indications: angina promethazine injection 6.25 mg (PHENERGAN) 6.25 mg, intravenous, Every 6 hours PRN, nausea, vomiting, Starting on Cortney 11/22/21 at 1625, Postprocedure (CV), RASS must be -2 or higher to administer. Reassess for nausea/vomiting after at least 10 min utes. (order for antiemetic medication a dministration Ondansetron then Promethazine). protamine injection (CANCELED) 1613 (Given - Pro vider: Bruna Yanez RAguilarNAguilar) As needed, Starting on Cortney 11/22/21 at 1613, Intraprocedure (CV) sodium chloride 0.9 % injection 10 mL 12 38 ([facility] Hold - Provider: Transfer Provider, Automatic - Reason: Patient not available)1738 ([facility] Unhold - Provider: Transfer Provider, Automatic) 10 mL, intravenous, As needed, line care , Starting on Fri11/21/21 at 1413, Peripheral Intravenous Catheter and Rapid Infusion Catheter, prior to blood sampling, post blood transfusion or post blood sampling sodium chloride 0.9 % injection 3 mL 123 8 ([facility] Hold - Provider: Transfer Provider, Automatic - Reason: Patient not available)1738 ([facility] Unhold - Provider: Transfer Provider, Automatic) 3 mL, intravenous, As needed, line care, Starting on Fri11/21/21 at 1413, Prior to and following infusion and between multiple consecutive infusions: sodium chloride 0.9 % injection verapamiL injection (ISOPTIN) (CANCELED) 1130 (Given - Provider: Raysa Steen M.D.) As needed, Starting on Fri11/21/21 at 1130, Intraprocedure (CV) documented in this encounter Additional Health Concerns Assessment Noted Time PHQ-9 Depression Total Score: 6 08/20/2012 4:08 PM CDT documented as of this encounter
--- OUTSIDE RECORDS SUMMARY | 2022-01-10 09:00 | XMS_ITS | Encounter Summary ---
:1950 Author Organization [facility] Address [address] [place] [id number] Care Team Providers Name Role Phone Unavailable Primary Care Provider Unavailable Encounter Details Date Type Department Care Team Description 11/20/2021 Hospital Encounter Department of Venkata Mayen Preprocsyed dural Lab Exam; Laboratory Medicine Tiffanie Rivera Contact With And (Suspected) Exposure To COVID-19 and Pathology, [address] [place] [address], in [place], [place] [id number] [place] [address] [employer], [place] (Work) [phone] Social History Tobacco Use Types Packs/Day Years Used Date Smoking Tobacco: Former Cigarettes 0 0 06/0 08/1965 - 04/01/1979 Smokeless Tobacco: Never Alcohol Use Standard Drinks/Week Comments Yes 10 (1 standard drink = 0.6 oz pure alcoh ol) Alcohol Habits Answer Date Recorded How often do you have a drink containing 4 or more times a w tonto apache 11/13/2021 alcohol? How many drinks containing alcohol [...] or relatives? How often do you attend gnosticism or More than 4 times per year 11/13/2021 buddhist services? Do you belong to any clubs or Yes 11/13/2021 organizations such as gnosticism groups, unions, fraternal or athletic groups, or [...] place to sleep or slept in a [place] [facility] (including now)? Education Answer Date Recorded What is the highest level of school you have completed or 12 th grade 10/02/2020 the highest degree you have received? 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 aspirin 81 mg chewable Chew 1 tablet (81 90 tablet 3 2020 tablet mg total) daily. calcium carbonate Take 2 tablets by 0 (CALCIUM 500 ORAL) mouth daily. cholecalciferol (VITAMIN Take 2,000 Units 0 D3) 2,000 Unit capsule by mouth daily. clopidogreL (PLAVIX) 75 Take 1 tablet (75 30 tablet 11 11/16 mg tablet mg total) by mouth daily. ezetimibe (ZETIA) 10 mg Take 10 mg by 0 9 tablet mouth at bedtime. furosemide (LASIX) 20 mg Take [...] (KLORCON/K-TAB) 10 mEq ER mEq total) by tablet mouth daily with breakfast. Do not crush or chew. ramipriL (ALTACE) 5 mg Take 2 capsules 180 capsule 3 022 capsule (10 mg total) by mouth daily. rosuvastatin (CRESTOR) 40 Take 1 tablet by 0 05/22 mg tablet mouth at bedtime. sertraline (ZOLOFT) 100 Take 1 tablet by 0 2012 mg tablet mouth at bedtime. verapamiL (CALAN-SR) 240 Take 1 tablet (240 90 tablet 3 mg ER tablet mg total) by mouth at bedtime. furosemide (LASIX) 20 mg Take 1 tablet (20 90 tablet 3 04/2411/22/2021 tablet mg total) by mouth daily. potassium chloride TAKE 4 TABLETS BY 0 11/05/2021 11/23/2021 (KLORCON/K-TAB) 10 mEq ER MOUTH EVERY tablet MORNING furosemide (LASIX) 40 mg Take 40 mg by 0 11/23/2021 tablet mouth 2 (two) times a day. potassium chloride 10 daily. 0 11/04/2021 mEq/100 mL IVPB documented as of this encounter Plan of Treatment Not on filedocumented as of this encounter Procedures Procedure Name Priority Date/Time Associated Diagnosis Comme nts SARS COV-2 RNA, Routine 11/20/2021 4:16 PM Preprocedural Lab Exam Results for this PCR, VARIES CDT Contact With And procedure a re in (Suspected) Exposure the res ults To COVID-19 section. documented in this encounter Results SARS CoV-2 RNA, PCR, Varies Asymptomatic (11/20/2021 4:16 PM CDT) [facility] Method Time Signature SARS CoV-2 Swab, 11/20/2021 [...] Drug Administration an d is used per billing supervisor's instructions. Performance characteristics were verified by [facility] in a manner consistent with CLIA requirements. Visit the CDC website: https://www.cdc.g ov/coronavirus/ for the most recent guidelines on Coron avirus testing. Fact Sheet for Healthcare Providers: https://www.fda.gov/media/143999/downloa d Fact Sheet for Patients: https://www.fda.gov/media/186471/downloa d Specimen Anatomical Collection Method Collection Time Receive d Time (Source) Location / / Volume Laterality Varies 11/20/2021 4:16 PM 5:10 (Nasopharynx) CDT PM CDT Venkata Mayen M.D. LAB [facility] Performing Organization Address City/State/ZIP Code Phon e Number [facility] - [address] [place] [phone] [facility] [place] [address] Laboratories-[facility] [address] [facility] documented in this encounter Visit Diagnoses Diagnosis Preprocedural Lab Exam Contact With And (Suspected) Exposure To COVID-19 documented in this encounter Additional Health Concerns Infection Onset Date Last Indicated Resolved Time COVID19 Pending 11/20/2021 11/20/2021 11/20/2021 11:15 PM CDT Assessment Noted Time PHQ-9 Depression Total Score: 6 08/20/2012 4:08 PM CDT documented as of this encounter
--- OUTSIDE RECORDS SUMMARY | 2022-01-10 09:00 | XMS_ITS | Encounter Summary ---
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 [facility] Procedures DX Chest AP or PA and Lateral 2 Views [address] [place] [address] Referral ID Status Reason Start Date Expiration Date Visits Requ ested Visits Authorized [id number] Closed 11/07/2021 11/07/2022 1 1 Encounter Details Date Type Department Care Team Description 11/14/2021 Hospital Encounter Department of Venkata Mayen Dyspnea On Exertion; Radiology, Shobha Rivera M.D. 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 How many drinks containing alcohol [...] or relatives? How often do you attend yazdanism or More than 4 times per year 11/13/2021 orthodoxy services? Do you belong to any clubs or Yes 11/13/2021 organizations such as yazdanism groups, unions, fraternal or athletic groups, or [...] place to sleep or slept in a correction (including now)? Education Answer Date Recorded What is the highest level of school you have completed or 12 th grade 10/02/2020 the highest degree you have received? 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 miscellaneous medical CPAP machine for 0 12/21/19 21 supply misc home use at pressure 5-16 cmw, nasal mask x1/3month with nasal pillows x 2/mo nitroglycerin (NITROSTAT) Place 0.4 mg under 0 0.4 mg SL tablet the tongue as needed. ramipriL (ALTACE) 5 mg Take 2 capsules [...] 10 mEq ER MOUTH EVERY tablet MORNING potassium chloride 10 daily. 0 11/04/2021 mEq/100 mL IVPB documented as of this encounter Plan of Treatment Not on filedocumented as of this encounter Procedures Procedure Name Priority Date/Time Associated Comments Diagnosis DX CHEST AP OR PA RAD - Routine 11/14/2021 3:55 Dyspnea On Result s for this AND LATERAL 2 (most inpatients PM CDT Exertion procedure are in VIEWS and all Chronic Diastolic the result s outpatients) (Congestive) section. 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
--- OUTSIDE RECORDS SUMMARY | 2022-01-10 09:00 | XMS_ITS | Encounter Summary ---
:1950 Author Organization [facility] Address [address] [place] [address] Care Team Providers Name Role Phone Unavailable Primary Care Provider Unavailable Encounter Details Date Type Department Care Team Description 11/21/2021 Surgery Division of Cardiovascular Tyree Mohan am, CORONARY ANGIOGRAPHY Diseases in [place] [id number] [address] [place] [phone] (Wo rk) Social History Tobacco Use Types Packs/Day Years Used Date Smoking Tobacco: Former Cigarettes 0 0 0 08/1965 - 04/01/1979 Smokeless Tobacco: Never Alcohol Use Standard Drinks/Week Comments Yes 10 (1 standard drink = 0.6 oz pure alcoh ol) Alcohol Habits Answer Date Recorded How often do you have a drink containing 4 or more times a w [place] 11/13/2021 alcohol? How many drinks containing alcohol do you have 1 or 2 11/13/2021 on a typical day when you are drinking? How often do you have six or more drinks on one Less than mo nthly 11/13/2021 occasion? Social Isolation Answer Date Recorded In a typical week, how many times do you More than three gómze es a week 11/13/2021 talk on the phone with family, friends, or neighbors? How often do you get together with friends Patient refused 11/13/2021 or relatives? How often do you attend nondenominational or More than 4 times per year 11/13/2021 caodaism services? Do you belong to any clubs or Yes 11/13/2021 organizations such as nondenominational groups, unions, fraternal or athletic groups, or [...] place to sleep or slept in a jail (including now)? Education Answer Date Recorded What is the highest level of school you have completed or 12 th grade 10/02/2020 the highest degree you have received? Sex Assigned at Date Recorded Female 05/03/2021 9:58 AM [facility] documented as of this encounter Last Filed Vital Signs Vital Sign Reading Time Taken Comments Blood Pressure 115/49 11/21/2021 12:02 PM CDT Pulse 73 11/21/2021 12:02 PM CDT Temperature 36.4 ??C (97.5 ??F) 11/21/2021 9:13 AM CDT Respiratory Rate 0 11/21/2021 12:02 PM CDT Oxygen Saturation 100% 11/21/2021 12:02 PM CDT Inhaled Oxygen Concentration - - Weight 95.8 kg (211 lb 3.2 oz) 11/21/2021 9:13 AM CDT Height 159.8 cm (5' 2.91) [...] Body mass index is 37.16 kg/m??. Ms. Collins is a 71-year-old female who [...] the outpatient setting. She was seen by [facility] outpatient cardiology on 11/14 where it was recommended that her echocardiogram berepeated and she undergo cardiac CT angiogram for further characterization of her mitral valve anatomy; CT showed severe mitral anular calcification. On 11/16 she had a telephone visit with her outpatient primary [employer] where she endorsed left-sided chest discomfort with [...] an SGLT-2 inhibitor was considered, however the mir-[id number] was greater than $700 for a 3 [...] documented in this encounter Discharge Instructions Discharge InstructionsDon Shineen M - 11/21/2021 12:38 PM CDT You were discharged from the [facility] CARD 3 Service. Please identify this service [...] Take 1 tablet (240 90 tablet 3 02/ mg ER tablet mg total) by mouth at bedtime. documented as of this encounter Progress Notes Adi Lawrence, PharmAguilarD., R.Ph. - 11/22/2021 10:05 AM CDT Images [...] ASA/clopidogrel resumed. IV heparin started after laboratory director visit yesterday. Back to laboratory director today. Medications reviewed. Changes to medications anticipated at discharge:TBD Adi Lawrence Pharm.D., R.Ph. Patient was interviewed in [...] (two) times a day. miscellaneous medical supply [facility] CPAP machine for home use at pressure [...] total) by mouth at bedtime. Adi Lawrence Pharm.D., R.Ph. Melinda Ochoa P.A.-C. - 11/22/2021 9:14 [...] Hg No left atrial appendage thrombus No zhepw-gc-aeqg shunt at atrial level at rest or [...] female who presented to the cardiac laboratory director for L/RHC in the setting of progressing [...] 10 mEq KCl once back from laboratory director Continue dual antiplatelet therapy with aspirin 81 [...] Supervisory Hospital Admission Note CV-3 REFERRAL SOURCE: Drs. Mayen, Kimberlee. SUBJECTIVE Please see the detailed progress note as annotated by my colleague, Ms. LANDRY Ochoa PA-C, elsewhere in the electronic record from earlier today which I have reviewed and agree with as recorded. I met with the patient and discussed findings and plans. 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 Admitting service: [facility] HISTORY OF PRESENT ILLNESS Ms. [...] the outpatient setting. She was seen by [facility] outpatient cardiology on 11/14 where it was recommended that her echocardiogram berepeated and she undergo cardiac CT angiogram for further characterization of her mitral valve anatomy; CT showed severe mitral anular calcification. On 11/16 she had a telephone visit with her outpatient primary [employer] where she endorsed left-sided chest discomfort with [...] intervention and she was admitted to the [facility] 3 service for initiation of IV heparin [...] CORONARY ANGIOGRAPHY; Surgeon: Dontae Rubio M.D.; Location: [facility] CATH ANGIOGRAM N/A 11/14/2020 Procedure: Left Heart Catheterization; Surgeon: Dontae Rubio M.D.; Location: [facility] CATH INTERVENTION N/A 11/14/2020 Procedure: Coronary Atherectomy; Surgeon: Dontae Rubio M.D.; Location: [facility] CATH INTERVENTION N/A 11/14/2020 Procedure: Stent Placement; Surgeon: Dontae Rubio M.D.; Location: [facility] CATH PTCA N/A 11/14/2020 Procedure: Percutaneous Coronary Angioplasty; Surgeon: Dontae Rubio M.D.; Location: [facility] CORONARY STENT PLACEMENT 1999 and 2005 REVIEW [...] day.), 11/21/2021 at 0430 miscellaneous medical supply [facility], CPAP machine for home use at pressure [...] Hg No left atrial appendage thrombus No tbfmf-ct-yoak shunt at atrial level at rest or [...] female who presented to the cardiac laboratory director for LHC and RHC in the settingof [...] pain/pressure. She will proceed to the laboratory director tomorrow for planned PCI with Dr. Ocampo [...] and support. Patient is interested in attending acardiac rehabilitation program. 2. Eligibility: PCI 3. Exceptions/exclusions: None. 4. Referral: Patient agreed with referral to a cardiac rehabilitation program. Please see discharge order and/or letter for program details. 5. Appropriate referral information will be sent to the receiving cardiac rehabilitation program as applicable. Patient provided verbal authorization to send relevant materials to the cardiac rehab program. Patient referred to: [facility] [address] [place] [address] P:[phone] F:[phone] Recommend that the patient check with insurance company to verify coverage of the cost of cardiac rehabilitation program visits. documented in this encounter Nursing Notes Alyssa Worley RAguilarN. - 11/23/2021 12:30 PM CDT Shift Goals: [...] Implant Name Type Inv. Item Serial No. Customer Business Manager Lot No. LRB No. Used Action STNT RONYX MARLY RX [id number] - [id number] Cardiac Stent STNT RONYX MARLY RX [id number] [employer] [id number] Implanted Operators: Kishan Patricia M.D., Ph.D. Carmen Kaplan M.D. Indication: Unstable angina Access Site(s): Right common femoral artery, 6 [place] sheath(s). Protamine administered for reversal, sheath securedin place to be removed using manual compression for hemostasis in recovery Complications: No Recommendations: -Aspirin 81mg daily indefinitely barring any complications -Clopidogrel 75 mg daily for at least 12 months as part of dual antiplatelet therapy from 11/22/21 -Transfer back to cardiology floor service, anticipated discharge tomorrow Please see financial services education consultant cath operative report for further information. [...] the outpatient setting. She was seen by [facility] outpatient cardiology on 11/14 where it was recommended that her echocardiogram berepeated and she undergo cardiac CT angiogram for further characterization of her mitral valve anatomy; CT showed severe mitral anular calcification. On 11/16 she had a telephone visit with her outpatient primary [employer] where she endorsed left-sided chest discomfort with [...] an SGLT-2 inhibitor was considered, however the xbt-[id number] was greater than $700 for a 3 [...] rdered: cardiac rehab Status Post 11/23/2021 program (non[place]) documented as of this encounter Procedures Procedure [...] for this CATHETERIZATION PM CDT Disease Of Pala procedu re are in Coronary Artery the results Without Angina section. Pectoris CARDIAC Routine 11/22/2021 4:17 Atherosclerotic Heart Res ults for this CATHETERIZATION PM CDT Disease Of Pala procedu re are in Coronary Artery the results Without Angina section. Pectoris CARDIAC Routine 11/22/2021 4:17 Atherosclerotic Heart Res ults for this CATHETERIZATION PM CDT Disease Of [place] procedu re are in Coronary Artery the results Without Angina section. Pectoris CARDIAC Routine 11/22/2021 4:17 Atherosclerotic Heart Res ults for this CATHETERIZATION PM CDT Disease Of [place] procedu re are in Coronary Artery the results Without Angina section. Pectoris CARDIAC Routine 11/22/2021 4:17 Atherosclerotic Heart Res ults for this CATHETERIZATION PM CDT Disease Of Pal[place] procedu re are in Coronary Artery the [...] CBC without Differential (11/23/2021 9:45 AM CDT) Patholo gist Method Time Signature Hemoglobin 11.3 (L) 11.6 [...] City/State/ZIP Code Phon e Number [facility] - [address] [place], [place] [address] [facility] [place] [address] Laboratories-[facility] [address] (ABNORMAL) Basic Metabolic Panel (11/23/2021 9:45 AM CDT) P athologist Signature Potassium, S 4.1 3.6 - [...] City/State/ZIP Code Phon e Number [facility] - [address] [place], [place] [address] [facility] [place] [address] [facility] 200 [facility] ECG 12 Lead (11/22/2021 4:32 PM CDT) P athologist Signature Ventricular Rate 79 BPM MUSE ECG/Min DE Interval 174 ms MUSE QRSD Interval 98 ms MUSE QT Interval 426 ms MUSE QTC Interval 488 ms MUSE P [place] 62 degrees MUSE R [place] 53 degrees MUSE T Wave [place] -2 degrees MUSE Specimen Anatomical Collection Method [...] Kaplan M.D. ECG ORDERABLES Performing Organization Address City/State/ZIP [...] City/State/ZIP Code Phon e Number POC RST [facility] INPATIENT [address] [place], [place] [address] [place] [address] [place] [facility] [address] PERCUTANEOUS CORONARY INTERVENTION, [...] Clotting Time), POCT (11/22/2021 4:07 PM CDT) P athologist Signature Activated 303 (H) 84 - 139 11/22/2021 [facility] Clotting Time, sec 4:14 PM CDT POCT Specimen Anatomical Collection Method Collection Time Receive d Time (Source) Location / / Volume Laterality Blood 11/22/2021 4:07 PM 4:14 CDT PM CDT Unknown Provider LAB POCT ORDERABLES - DEVICE Performing Organization Address City/State/ZIP Code Phon e Number POC RST [facility] IN[facility]IENT [address] [place], [place] [address] [facility] [place] [address] [place] [facility] [address] (ABNORMAL) ACT (Activated Clotting Time), POCT (11/22/2021 2:17 PM CDT) P athologist Signature Activated 393 (H) 84 - 139 11/22/2021 [facility] Clotting Time, sec 2:24 PM CDT POCT Specimen Anatomical Collection Method Collection Time Receive d Time (Source) Location / / Volume Laterality Blood 11/22/2021 2:17 PM 2:24 CDT PM CDT Unknown Provider LAB POCT ORDERABLES - DEVICE Performing Organization Address City/State/[facility] Code Phon e Number POC RST [facility] INPATIENT [address] [place], [place] [address] [facility] [place] [address] [place] P[facility] [address] (ABNORMAL) Basic Metabolic Panel (11/22/2021 5:13 AM CDT) P athologist Signature Potassium, S 3.9 [...] Laterality Blood (Blood, 11/22/2021 5:13 AM 11/23/19 22 6:04 Venous) CDT AM CDT Melinda Ochoa P.A.-C. LAB BLOOD ADD-ON Performing Organization Address City/State/[facility] Phon e Number [facility] - [address] (ABNORMAL) CBC without Differential (11/22/2021 5:13 AM [...] P.A.-C. LAB BLOOD ADD-ON Performing Organization Address City/State/[facility] Phon e Number [facility] - [address] Heparin Anti-Xa Assay (11/22/2021 5:12 AM CDT) [...] AM 11/23/19 5:57 Venous) CDT AM CDT Harjinder Tomas APRN C.N.P. LAB BLOOD NON ADD-ON Performing Organization Address City/State/ZIP Code Phon e Number [facility] - [address] [place] [place] [address] [place] [address] Laboratories-[facility] 200 [facility] Heparin Anti-Xa Assay (11/21/2021 10:11 PM CDT) P athologist Signature Heparin 0.32 IU/mL 11/21/2021 [facility] Anti-Xa, P 10:39 PM CDT Comment: [facility] [...] Venous) PM CDT 10:26 PM CDT Melinda Ohcoa P.A.-C. LAB BLOOD NON ADD-ON Performing Organization Address City/State/ZIP Code Phon e Number [facility] - [address] [place] [address] Magnesium (11/21/2021 3:37 PM CDT) P athologist Signature Magnesium, S 2.1 1.7 - 2.3 11/21/2021 DTL mg/dL 5:03 PM CDT Specimen Anatomical Collection Method Collection Time Receive d Time (Source) Location / / Volume Laterality Blood (Blood, 11/21/2021 3:37 PM 11/22/19 4:44 Venous) CDT PM CDT Melinda Ochoa P.A.-C. LAB BLOOD ADD-ON Performing Organization Address City/[facility] Phon e Number [facility] - [address] (ABNORMAL) CBC with Differential, Blood (11/21/2021 3:37 PM CDT) Patholo gist Method Time Signature Hemoglobin 11.8 11.6 [...] City/State/ZIP Code Phon e Number [facility] - [address] [place], [place] [address] [facility] [place] [address] Laboratories-[facility] 200 [facility] (ABNORMAL) Basic Metabolic Panel (11/21/2021 3:37 [...] City/State/ZIP Code Phon e Number 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 Coronary Stent Status Post Impaired Fasting Glucose Dyspnea On Exertion Ischemic Heart Chronic Disease Regurgitation 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) Pain Chest Impaired Fasting Glucose Dyspnea Multifactorial Regurgitation 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) Pain Chest Ischemic Heart Chronic Disease Atherosclerotic Heart Disease Of [place] Coronary Artery Without Angina Pectoris documented in this encounter Admitting Diagnoses Diagnosis Impaired Fasting Glucose Dyspnea On Exertion Ischemic Heart Chronic Disease Regurgitation 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) Pain Chest Cardiac Disease Atherosclerotic Heart Disease Of [place] Coronary Artery Without Angina Pectoris documented in this encounter Administered Medications Inactive Administered Medications - up to 3 most recent administrations Medication Order MAR Action Action Date Dose Rate Site aspirin chewable tablet 81 mg Given 11/23/2021 8:59 AM CDT 81 mg 81 mg, oral, Daily, First dose on Cortney 11/22/21 at 0900 Given 11/22/2021 9:23 AM CDT 81 mg atropine injection 0.5 mg 0.5 mg, intravenous, Every 5 min PRN, Symptomatic ji ycardia with hypotension, Starting on [place] 11/22/21 at 1625, For 4 doses, Postproce dure [...] 8:36 PM CDT 10 mg fentaNYL injection (SUBLIMAZE) Given 11/21/2021 11:23 AM CDT 25 mcg As needed, Starting on Fri11/21/21 at 1050, Intraprocedure (CV) Given 11/21/2021 10:50 AM CDT 25 mcg fentaNYL injection 25 mcg (SUBLIMAZE) 25 mcg, intravenous, Once as needed, mod erate pain or score 4-6 of 10, severe pain or score 7-10 of 10, Until sheath remova l., Starting on Cortney 11/22/21 at 1625, For 1 dose, Postprocedure (CV) furosemide tablet 20 mg (LASIX) Given 11/23/2021 12:34 PM CDT 20 mg 20 mg, oral, 2 times daily, First dose on Fri11/21/21 at 1415 Given 11/23/2021 6:17 AM CDT 20 mg Given 11/22/2021 11:28 AM CDT 20 mg heparin (porcine) 1,000 unit/mL Given 11/21/2021 11:59 AM CDT 2, 000 Units injection As needed, Starting on Fri11/21/21 at 1134, Intraprocedure (CV) Given 11/21/2021 11:34 AM CDT 5,000 Units iohexoL 350 mg iodine/mL solution Given 11/21/2021 12:20 PM CDT 110 mL (OMNIPAQUE) As needed, Starting on Fri11/21/21 at 1220, Intraprocedure (CV) lidocaine 10 mg/mL (1 %) injection Given 11/21/2021 11:23 AM CDT 5 mL Right Wrist (XYLOCAINE) As needed, Starting on Fri11/21/21 at 1107, Intraprocedure (CV) Given 11/21/2021 11:07 AM CDT 5 mL Righ t Neck midazolam (PF) injection (VERSED) Given 11/21/2021 11:04 AM CDT 0.5 mg As needed, Starting on Fri11/21/21 at 1104, Intraprocedure (CV) midazolam (PF) injection 0.5 mg (VERSED) Given 11/21/2021 10:50 AM CDT 0.5 mg 0.5 mg, intravenous, Once as needed, sedation, Starting on Fri11/21/21 at 1049, For 1 dose, Intraprocedure (CV) midazolam (PF) injection 0.5 mg (VERSED) Given 11/21/2021 11:47 AM CDT 0.5 mg 0.5 mg, intravenous, Every 2 min PRN, sedation, RASS -1, Starting on Fri11/21/21 at 1049, Intraprocedure (CV), May repeat every 2 minutes for a maximum of 5 mg. Do not give if respiratory rate is less than 8 breaths/minute. naloxone injection 0.2 mg (NARCAN) 0.2 mg, intravenous, As needed, respirat ory depression, Starting on [place] 11/22/21 at 1625, Postprocedure (CV), For RASS Score -4 or less, respiratory rate of less than 8 breaths/min. Notify provider/service and rapid respo nse team (if available at institution). nitroglycerin SL tablet (NITROSTAT) Given 11/21/2021 11:22 AM CDT 0.4 mg As needed, Starting on Fri11/21/21 at 1122, Intraprocedure (CV) promethazine injection 6.25 mg (PHENERGA N) 6.25 [...] feeding guidelines for tube feeding administration instructions. verapamiL injection (ISOPTIN) Given 11/21/2021 11:30 AM CDT 2 mg As needed, Starting on Fri11/21/21 at 1130, Intraprocedure (CV) documented in this encounter Active and Recently Administered Medications Times are shown in CDT. Scheduled Medication Order 11/21/2021 11/22/2021 11/23/2021 aspirin chewable tablet 243 mg (COMPLETED) 09 (Given - Provider: Leopoldo Ross RNila) 243 mg, oral, Once, On Fri11/21/21 at 0915, For 1 dose, Preproce dure (CV) aspirin chewable tablet 243 mg (COMPLETED) 1249 (Given - Provider: Mary Rojas R.N., [facility]) 243 mg, oral, Once, On Fri11/22/21 at [...] Automatic) 0859 (Given - Provider: Alyssa Worley RNila) 75 mg, oral, Daily, First dose on Fri11/22/21 at 0900 ezetimibe tablet 10 mg (ZETIA) 2035 (Given - Provider: Radha Ha RAguilarNAguilar) 1238 (MAR Hold - Provider: Transfer Provider, Automatic - Reason: Patient not available)1738 (MAR Unhold - Provider: Transfer Provider, Automatic)2002 (Given - Provider: Blaise Moses RNila) 10 mg, oral, Daily at bedtime, First dose on Fri11/21/21 at 2100 furosemide tablet 20 mg (LASIX) 1546 (Given - Provider: Val Motley R.NAguilar) 0643 (Given - Provider: Blaise Moses R.N.)1128 (Given - Provider: Annel Phelan R.N.)1238 (MAR Hold - Provider: Transfer Provider, Automatic - Reason: Patient not available)1738 ([facility] Unhold - Provider: Transfer Provider, Automatic) 0617 [...] - Prov ider: Radha Ha RNila) 1238 ([facility] Hold - Provider: Transfer Prov ider, Automatic - Reason: Patient not available)1738 ([facility] Unhold - Provider: Transfer Provider, Automatic)2003 (Given - Provider: Blaise Moses R.N.) 40 mg, oral, Daily at bedtime, First dose on Fri11/21/21 at 2100 sertraline tablet 100 mg (ZOLOFT) 2035 (Given - Provid er: Radha Ha R.N.) 1238 ([facility] Hold - Provider: Transfer Prov ider, Automatic - Reason: Patient not available)1738 ([facility] Unhold - Provider: Transfer Provider, Automatic)2002 (Given - Provider: Blaise Moses R.N.) 100 mg, oral, Daily at bedtime, First dose on Fri11/21/21 at 210 0 sodium chloride 0.9 % injection 3 mL 2040 (Given - Pro vider: Radha Ha R.N.) 0924 (Given - Provider: Annel campos RNila)1238 (MAY Hold - Provider: Transfer Provider, Automatic - Reason: Patient not available)173 ([facility] Unhold - Provider: Transfer Provider, Automatic)2009 (Given - Provider: Blaise Moses R.N.) 0859 (Given - Provider: Alyssa [...] R.N.)1333 (Stopped - Provider: [facility]., [facility]) 0-40 Units/kg/hr ? 95.8 kg Dosing weight [...] Provider, Automatic - Reason: Patient not available)1738 ([facility] Unhold - Provider: Transfer Provider, Automatic) 500 [...] DR tablet 10 mg (DULCOLAX) 123 8 ([facility] Hold - Provider: Transfer Provider, Automatic - Reason: Patient not available)1738 ([facility] Unhold - Provider: Transfer Provider, Automatic) 10 [...] tablet 400 mg of calcium (TUMS) 1238 ([facility] Hold - Provider: Transfer Provider, Automatic - Reason: Patient not available)1738 ([facility] Unhold - Provider: Transfer Provider, Automatic) 400 mg of calcium, oral, Every 2 hour DE N, indigestion, Not to exceed 12 tablets in 24 hours, Starting on Fri11/21/21 at 1414, Doses listed are in mg of elemental calcium. Take with food. 500 mg calcium carbonate contains 200 mg of elemental calcium. docusate sodium capsule 100 mg (COLACE) 1238 ([facility] Hold - Provider: Transfer Provider, Automatic - Reason: Patient not available)1738 ([facility] Unhold - Provider: Transfer Provider, Automatic) 100 mg, oral, 2 times daily PRN, constip ation, Starting on Fri11/21/21 at 1413, Do NOT crush or chew. fentaNYL injection (SUBLIMAZE) (CANCELED) 1050 (Given - Provider: Philly Donnelly R.N.)1123 (Given - Provider: Emily Joyner R.N.) As needed, Starting on Fri11/21/21 at 1050, [...] 1 (Given - Provider: Andrea Munoz R.N., CCRAgnes, C.S.C.)1600 (Given - Provider: Andrea Munoz R.N., CCRN, C.S.C.)1607 (Canceled Entry - Provider: Andrea Munoz R.N., CCRN, C.S.C.) he patient meets the pain comfort [...] Philly Donnelly R.N.) As needed, Starting on 11/21/21 at 1134, Intraprocedure (CV) heparin (porcine) 1,000 unit/mL injection (CANCELED) 1403 (Given - Provider: Bruna Yanez R.N.)1552 (Given - Provider: Andrea Munoz R.N., CCRN, C.S.C.) As needed, Starting on Fri11/22/21 at 1403, Intraprocedure (CV) iohexoL 350 mg [...] 1 050 (Given - Provider: Philly Donnelly R.N.) 0.5 mg, intravenous, Once as needed, sed [...] Provider: Bruna Yanez R.N.)1412 (Given - Provider: Daksha OliviaNAguilar)1424 (Given - Provider: Bruna Yanez R.N.)1442 (Given - Provider: Bruna Yanez R.N.) 1 mg, intravenous, Every 2 min PRN, amador tion, RASS 0, Starting on Fri11/22/21 at 1351, Intraprocedure (CV), May repeat every [...] Provider: Bruna Yanez R.N.)1528 (Given - Provider: Daksha OliviaNAguilar) As needed, Starting on Fri11/22/21 at 1503, Intraprocedure (CV) naloxone injection 0.2 mg (NARCAN) 0.2 mg, intravenous, As needed, respirat ory depression, Starting on Fri11/22/21 at 1625, Postprocedure (CV), For RASS Score -4 or less, respiratory rate of less than 8 breaths/min. Notify provider/servic e and rapid response team (if available at institution). nitroglycerin SL tablet (NITROSTAT) (CANCELED) 1122 (Tawana boykin - Provider: Emily Joyner R.N.) As needed, Starting on Fri11/21/21 at 1122, Intraprocedure (CV) nitroglycerin SL tablet 0.4 mg (NITROSTAT) 1238 (MAY Hold - Provider: Transfer Provider, Automatic - Reason: Patient not available)1738 (MAY Unhold - Provider: Transfer Provider, Automatic) 0.4 [...] 1613 (Given - Pro vider: Bruna Yanez R.N.) As needed, Starting on Cortney 11/22/21 at 1613, Intraprocedure (CV) sodium chloride 0.9 % injection 10 mL 12 38 (MAY Hold - Provider: Transfer Provider, Automatic - Reason: Patient not available)1738 (MAY Unhold - Provider: Transfer Provider, Automatic) 10 mL, intravenous, As needed, line care , Starting on Fri11/21/21 at 1413, Peripheral Intravenous Catheter and Rapid Infusion Catheter, prior to blood sampling, post blood transfusion or post blood sampling sodium chloride 0.9 % injection 3 mL 123 8 (MAY Hold - Provider: Transfer Provider, Automatic - Reason: Patient not available)1738 (MAY Unhold - Provider: Transfer Provider, Automatic) 3 [...]
--- OUTSIDE RECORDS SUMMARY | 2022-01-10 09:00 | XMS_ITS | Encounter Summary ---
:[address] 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 [facility] Procedures Echo Transesophageal (LILLY) [address] [place], [place] [address] Referral ID Status Reason Start Date Expiration Date Visits Requ ested Visits Authorized [id number] Closed 11/07/2021 11/07/2022 1 1 Encounter Details Date Type Department Care Team Description 11/14/2021 Hospital Encounter Department of Venkata Mayen Dyspnea On Exertion; Cardiovascular Diseases Gus Rivera Chronic Diastolic (Congestive) Heart Jose trevizo ([facility]); in [facility] pretty [address] Stenosis Mitral Not Rheumati c Acquired; [address] Regurgitation Mitral; [facility], Ischemic Heart Chronic Disease [id number] [place] [phone] Social History Tobacco Use Types Packs/Day Years Used Date Smoking Tobacco: Former Cigarettes 0 0 /08/1965 - 04/01/1979 Smokeless Tobacco: Never Alcohol Use Standard Drinks/Week Comments Yes 10 (1 standard drink = 0.6 oz pure alcoh ol) Alcohol Habits Answer Date Recorded How often do you have a drink containing 4 or more times a w mechoopda 11/13/2021 alcohol? How many drinks containing alcohol [...] or relatives? How often do you attend baptism or More than 4 times per year 11/13/2021 congregation services? Do you belong to any clubs or Yes 11/13/2021 organizations such as baptism groups, unions, fraternal or athletic groups, or [...] place to sleep or slept in a chcf (including now)? Education Answer Date Recorded What is the highest level of school you have completed or 12 th grade 10/02/2020 the highest degree you have received? Sex Assigned at Date Recorded Female 05/03/2021 9:58 AM [employer] documented as of this encounter Last Filed Vital Signs Vital Sign Reading Time Taken Comments Blood Pressure 130/68 11/14/2021 2:10 PM CDT Pulse 79 11/14/2021 2:14 PM CDT Temperature - - Respiratory Rate 20 11/14/2021 2:14 PM CDT Oxygen Saturation 96% 11/14/2021 2:14 PM CDT Inhaled Oxygen Concentration - - Weight 95.7 kg (210 lb 15.7 oz) 11/14/2021 1:00 PM CDT Height - - Body Mass Index 38.33 04/10/2021 3:01 PM [employer] documented in this encounter Medications at Time [...] CPAP machine for 0 12/21/19 21 supply [facility] home use at pressure 5-16 cmw, nasal [...] Name Priority Date/Time Associated Diagnosis Comme nts (LILLY) 2D WITH Routine 11/14/2021 2:22 PM Dyspnea On Ex ertion Results for this COLOR, LIMITED CDT Chronic Diastolic procedur e are in DOPPLER AND (Congestive) Heart the resul ts CONTRAST Failure (HCC) section. 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 Adult probe inserted without difficulty. LEFT VENTRICLE:Borderline [...] Agitated saline injection(s) performed during sedation. No [id number]-[id number]-[id number] shunt at atrial level at rest or [...] Sedation Narrator or other pertinent record in [facility] for additional procedure and sedation information. Physician sign ature for procedural medications and patient discharge when DC criteria met. For the complete report, see the Order-L [employer] Documents. Narrative 11/14/2021 4:43 PM CDT For [...] No left atrial appendage thrombus. 7. No [id number]-[id number] shunt at atrial leve l at rest [...] No left atrial appendage thrombus. 7. No xiyqm-ui-dnun shunt at atrial leve l at rest [...] and the findings as documented in the community life director and also performed a pertinent examination includ ing a heart, airway and lung assessment. Mallampati Assessment: As documented in the RN pre-procedure assessment. Sedation plan: Transesophageal echo - moderate sedation. ASA physical status score: Class III. The pa otilia's identity and all needed equipment were confirmed and a final confirmatory pause was performed by the team immediately prior to start. PROCEDURAL ECHO FINDINGS: Transesophageal echocardiogram performed at the request of the primary farm service adviser. Adult probe inserted without difficulty. LEFT VENTRICLE:Borderline [...] Agitated saline injection(s) performed during sedation. No zogiv-xr-qfzh shunt at atrial level at rest or [...] Sedation Narrator or other pertinent record in [facility] for additional procedure and sedation information. Physician signature for procedural medications and patient discharge when D C criteria met. For the complete report, see the Order-L [employer] Documents. Venkata Mayen M.D. 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 Regurgitation Mitral Ischemic Heart Chronic Disease documented in this encounter Administered Medications Inactive Administered Medications - up to 3 most recent administrations Medication Order MAR Action Action Date Dose Rate Site fentaNYL injection (SUBLIMAZE) Given 11/14/2021 1:36 PM CDT 25 mcg Code/trauma/sedation medication, Starting on Fri11/14/21 at 1333 Given 11/14/2021 1:33 PM CDT 50 mcg fentaNYL injection (SUBLIMAZE) Given 11/14/2021 1:49 PM CDT 25 mcg Code/trauma/sedation medication, Starting on Fri11/14/21 at 1349 lidocaine 5 % ointment 1 application Given 11/14/2021 1:31 P M CDT 1 application (XYLOCAINE) 1 application, mouth/throat, As needed, mild pain or score 1-3 of 10, See protocol, Starting on Fri11/14/21 at 1330, For 2 doses, Intraprocedure - Diagnostic, Apply 1 inch on tongue blade. Place ointment side down in back of mouth, as far back as possible. Instruct patient to swallow any dissolved ointment. After 2-3 minutes, check gag reflex. May repeat once if gag reflex remains. Administer first dose within 10 minutes of expected physician arrival to procedure. MAX of 20 g of ointment/day midazolam (PF) injection (VERSED) Given 11/14/2021 1:36 PM CDT 1 mg Code/trauma/sedation medication, Starting on Fri11/14/21 at 1333 Given 11/14/2021 1:33 PM CDT 2 mg midazolam (PF) injection (VERSED) Given 11/14/2021 2:03 PM CDT 1 mg Code/trauma/sedation medication, Starting on Fri11/14/21 at 1349 Given 11/14/2021 1:49 PM CDT 1 mg NaCl 0.9% bacteriostatic 0.9 % injection 30 mL Given 11/14/2021 2:08 PM CDT 20 mL 30 mL, intravenous, As needed, for agitated saline (bubble) studies, Starting on Fri11/14/21 at 1330, Intraprocedure - Diagnostic, See protocol documented in this encounter Additional Health Concerns Assessment Noted Time PHQ-9 Depression Total Score: 6 08/20/2012 4:08 PM CDT documented as of this encounter
--- OUTSIDE RECORDS SUMMARY | 2022-01-10 09:00 | XMS_ITS | Encounter Summary ---
:1950 Author Organization [facility] Address [address] [place] [address] Care Team Providers Name Role Phone Unavailable Primary Care Provider Unavailable Reason for Referral Outpatient (Routine) - Closed Specialty Diagnoses / Procedures Referred By Contact Refer red To Contact Cardiovascular Disease Venkata Mayen [place] M.D. [address] [place] [phone] Referral ID Status Reason Start Date Expiration Date Visits Requ ested Visits Authorized [id number] Closed 11/16/2021 11/15/2024 1 1 Scheduling Instructions 3 pm Reason for Visit Outpatient (Routine) - Closed Specialty Diagnoses / Procedures Referred By Contact Refer red To Contact Cardiovascular Disease Venkata Mayen [place] M.D. 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 [address] [facility] Regurgitation Mitral; [address] [place], [place] Chronic Diastolic (Congestiv e) Heart Failure (HCC); [place] [phone] Pain Chest; [phone] Ischemic Heart Chronic Disease (Work) Social History Tobacco Use Types Packs/Day Years Used Date Smoking Tobacco: Former Cigarettes 0 0 06/0 08/1965 - 04/01/1979 Smokeless Tobacco: Never Tobacco Cessation: Counseling Given: Not Answered Alcohol Use Standard Drinks/Week Comments Yes 10 (1 standard drink = 0.6 oz pure alcoh ol) Alcohol Habits Answer Date Recorded How often do you have a drink containing 4 or more times a w [id number] 11/13/2021 alcohol? How many drinks containing alcohol [...] or relatives? How often do you attend protestant or More than 4 times per year 11/13/2021 uatsdin services? Do you belong to any clubs or Yes 11/13/2021 organizations such as protestant groups, unions, fraternal or athletic groups, or [...] place to sleep or slept in a [facility] (including now)? Education Answer Date Recorded What is the highest level of school you have completed or 12 th grade 10/02/2020 the highest degree you have received? 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 Pulse 70 11/14/2021 11:03 AM CDT Temperature - - Respiratory Rate - - Oxygen Saturation - - Inhaled Oxygen Concentration - - Weight - - Height - - Body Mass Index - - documented in this encounter Progress Notes Venkata Mayen M.D. - 11/14/2021 11:00 AM CDT SUBJECTIVE HISTORY OF PRESENT ILLNESS Ivonne Collins is a 71 y.o. female who returns to [facility] Cardiovascular Medicine for following a recent hospitalization for severe dyspnea with pulmonary edema. She will reports being in her usualstate of health until 01 November 2021 when she experienced modest symptoms of dizziness or lightheadedness and laid down to rest. She subsequently developed a feeling of phlegm and began to cough withsubsequent development of abrupt and severe dyspnea for which emergency medical services was activated (she utilized home albuterol MDI without benefit) and upon arrival to the local emergency department her systolic blood pressure was 177 mm Hg and her oxygen saturation was 92% on room air on arrivalbut subsequently decreased to the mid 80s. She was treated with sublingual nitroglycerin, furosemide, and BiPAP with subsequent stabilization (N terminal proBNP was 1140 pg/mL with normal troponin on admission). CT angiogram chest did not identify a pulmonary embolism but evaluation of the subsegmental pulmonary arteries was limited. Diffuse peribronchial ground-glass opacities in the upper lobes with superimposed septal thickening, patchy subpleural ground-glass opacities in the left lower lobe, and small bilateral pleural effusions; please see formal report for additional details. A transthoracic echocardiogram was performed on 02 November 2021 in the report describes normal left ventricular chamber size and systolic function with estimated LV ejection fraction 60%. Mitral valve mean diastolic gradient between nine and 10 mm Hg at heart rate 92 beats per minute with severe mitral regurgitation. Estimated right ventricular systolic pressure 42 mm Hg + right atrial pressure. She was subsequently dismissed on furosemide 40 mg twice daily + potassium chloride 40 mEq daily and has done well since that time. She does not recall any slowly progressive cardiopulmonary symptoms, constitutional symptoms, significant dietary indiscretions or infectious-type symptomatology in the days or weeks preceding her acute decompensation earlier this month. Following our last visit in March 2021 she began participatingin a regular exercise regimen and noted a modest improvement in her weight (103 kg at our March visit) and since increasing the furosemide has lost approximately 8 to 10 lb (weight has been relatively stable over the past several days; she has noted 2 lb fluctuations based on dietary issues). Her lower extremity edema has improved; she denies orthopnea or paroxysmal nocturnal dyspnea. No significant change in abdominal girth. No recurrent dyspnea at rest and no increase in baseline exertional dyspnea. No chest discomfort or other anginal equivalents reported with the exception of longstanding exertional dyspnea. Cardiac medications include ramipril 10 mg daily, verapamil 240 mg daily, furosemide 40 mg twice daily, potassium chloride 40 mEq daily, rosuvastatin 40 mg daily, ezetimibe 10 mg daily, aspirin 81 mg daily, and nitroglycerin sublingual as needed. REVIEW OF SYSTEMS REVIEW OF SYSTEMS The following portions of the patient's history were reviewed: allergies, current medications, family history, medical history, social history, surgical history and problem list. OBJECTIVE BP 107/58 (BP Location: Right arm, Patient Position: Sitting, Cuff Size: Large) Comment: 6 minute BP. Pulse 70 Weight 95.7 kg (obtained at [facility] lab post-visit) PHYSICAL EXAMINATION General: Increased body habitus with centripetal obesity. Well groomed. No distress. Psychiatric: Normal mood and affect. Alert and oriented. Head: Normocephalic, atraumatic. Eyes: No xanthelasma or conjunctivitis. ENT: No oral mucosal pallor or cyanosis. Neck: Jugular venous pressure estimated at 8 to 10 cm. Carotid upstroke is preserved. No carotid bruit. No subclavian bruit. Heart: Apical impulse is not displaced nor sustained. No ventricular lift. Normal first and second heart sound. No opening snap or diastolic inflow rumble. No S3 or S4. Rhythm is regular. Grade 1 systolic murmur over the aortic position. I do not appreciate a significant murmur of mitral regurgitation. No diastolic murmur. No systolic click. No pericardial rub. Lungs: Normal respiratory effort and air movement. Clear to auscultation bilaterally. No crackles, rhonchi, or wheezing. Abdomen: Positive bowel sounds. Soft and nontender. No rebound or guarding. Normal sized liver and spleen. No masses identified. No ascites detected. Enlargement of the abdominal aorta not detected by palpation. No abdominal bruits. Extremities: No clubbing or cyanosis. Increased lower extremity size but no significant lower extremity edema; lipedema present. Neurologic: No focal deficits appreciated on limited examination. Gait: No significant gait instability observed. Skin: No stasis dermatitis or ulceration identified in the visualized areas. DIAGNOSTICS I have reviewed the patient's current laboratory, imaging, and other diagnostic studies. Laboratory with normal complete blood count, normal comprehensive metabolic panel (BUN 17 and creatinine 0.89 mg/dL with potassium 4.7) with exception of elevated glucose 122 mg/dL. N terminal proBNP 493 pg/mL. Total cholesterol 121, HDL 46, LDL 61, and triglycerides 68 mg/dL. Normal TSH. Electrocardiogram normalsinus rhythm at 79 beats per minute, nonspecific ST abnormality. No significant change from prior [facility] tracing. Echocardiogram with mild left ventricular enlargement, normal wall motion, and calculated LV ejection fraction 65%. Normal right ventricular size and systolic function with estimated RV systolic pressure 39 mm Hg. Severe left atrial enlargement by visual estimate. Mitral annular and mitral valve chordae calcification. Mitral valve mean diastolic gradient 4 mm Hg at heart rate 71 beats per minute. Valve area by planimetry 2.7 cm^2. Moderate mitral valve regurgitation with ERO 0.25 cm^2 and regurgitant volume 42 mL. Trivial to mild aortic valve stenosis with systolic mean gradient 7mm Hg and valve area 1.93 cm^2. Mild tricuspid valve regurgitation. Normal inferior vena cava size with normal inspiratory collapse. Suspected mild interstitial process in both lungs; see report for additional details. 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 #2a Mitral inflow obstruction secondary to mitral annular calcification +/- minimal valvular stenosis #2b Moderate mitral valve regurgitation #3 Resting and exercise-accentuated pulmonary hypertension likely secondary to left heart disease #4 Multivessel coronary artery disease status post multivessel percutaneous coronary artery revascularization #4a Right coronary artery rotational atherectomy + stent revascularization (October 2020) #5 Heart failure with preserved ejection fraction and systemic hypertension #6 Hyperlipidemia with elevated lipoprotein (a) #7 Impaired fasting glucose with borderline hemoglobin A1c #8 Obesity class 2 (BMI >35 kg/m??) with metabolic syndrome #9 Obstructive sleep apnea, treated with CPAP #10 Status post right breast lumpectomy and radiation for infiltrating ductal carcinoma We reviewed her recent hospitalization consistent with acute hypoxemic respiratory failure and pulmonary edema in the context of coronary artery disease, heart failure with preserved ejection fraction,and mixed mitral valve disease with mitral inflow obstruction related to bulky mitral annular calcifi cation (less likely significant mitral leaflet stenosis) and mitral valve regurgitation. The outsideechocardiogram performed the day following her presentation reported severe mitral valve regurgitation and I have requested those images for review. The repeat echocardiogram completed earlier this week is detailed above and demonstrated moderate mitral valve regurgitation. She is scheduled for a transesophageal echocardiogram later today to further evaluate mitral valve morphology including mitral annular calcification, mitral leaflet + subvalvular calcification as well as mitral valve regurgitation. I also have tentatively scheduled a cardiac CT angiogram with mitral valve protocol next week for further characterization of mitral anatomy including mitral annular calcification. The precipitating mechanism for her acute decompensation is unclear and fortunately there was no evidence for acute myocardial injury to suggest acute myocardial ischemia. We discussed the combination of her mitral valve disease and underlying left ventricular diastolic dysfunction (significant HFpEF)and as it relates to the mitral valve in isolation, the possibilities of mitral valve replacement ortranscatheter mitral valve in MAC implantation (ultimately, we may pursue a hemodynamic catheterization study for further assessment pending the results of the transesophageal echocardiogram). I am pleased to see that she has been feeling well since hospital dismissal and she has resumed lower intensity exercise (utilizing a stationary cycle 40 minutes several times per week; similar exercise duration but less resistance compared to pre-hospitalization). She will continue furosemide 40 mg twice daily + potassium replacement given her clinical examination today. I have asked her to be careful with sodium intake, obtain as well as record daily weights and have a basic metabolic panel checked within the next 1 to 2 weeks as we may reduce her furosemide to 40 mg daily + add spironolactone 12.5 mg daily with decreasing or discontinuing potassium replacement. Additionally, I anticipate she will benefit with adding a SGLT2i to her current regimen given the HFpEF and impaired fasting glucose with previously elevated elevated and currently borderline hemoglobin A1c. Separately, she will continue working with her local Sleep Medicine group given the recent changes to CPAP; will defer to primary care team regarding further evaluation of non-cardiac screening studiesincluding mammography given recent CT report and prior history of right breast lumpectomy and radiation for infiltrative ductal carcinoma. Patient Education: We discussed thresholds for seeking immediate medical care based on recurrent symptoms. Ready to learn, no apparent learning barriers were identified; learning preferences include listening. Explained diagnosis and treatment plan; patient expressed understanding of the content. I believe all questions were answered. Addendum (16 November 2021): Transesophageal echocardiogram reviewed; mitral annular calcification with focal calcification of the P3 scallop with restricted mobility. Moderate mitral valve regurgitation. Mild calcific mitral stenosis with valve area 4 cm^2 by planimetry and mean diastolic gradient 3 mmHg at heart rate 74 beats per minute. See report for additional details. Findings discussed with Ivonne via telephone. During our conversation, she mentioned mild left- sided chest discomfort in conjunction with left scapular and jaw discomfort while using a stationary cycle today (symptoms resolved with decreasing intensity of exercise). She does not recall experiencing left-sided chest discomfort previously; however, did acknowledge that she has experienced the left scapular/jaw discomfort with higher levels of exertion for her on multiple occasions over the past several months. Earlier this week,I did not obtain a history to suggest exertional angina (or rest angina on November 01 nor was thereevidence for acute myocardial injury at that time); however, this clinical history raises the possibility of acute myocardial ischemia with transient worsening of mitral regurgitation in the context ofher underlying mitral valve disease and heart failure with preserved ejection fraction as the mechanism for her recent abrupt decompensation. Additionally, the outside transthoracic echocardiogram was received and demonstrates severe mitral regurgitation as well as possible inferior + lateral hypokinesis albeit challenging to evaluate due to image quality. She was provided instructions with respect to limiting her exertional activities for now as well as thresholds for seeking immediate medical care. I anticipate proceeding with coronary angiography nextweek and as a result she will resume clopidogrel 75 mg daily in addition to aspirin 81 mg daily; additionally, we may opt to proceed with left and right heart catheterization + exercise pending the diagnostic coronary angiogram as the hemodynamic studies may provide additional insight with respect to the contribution(s) of left ventricular diastolic dysfunction and mitral valve disease to her exertional symptoms. documented in this encounter Plan of Treatment Scheduled Referrals Name Type Priority Associated Order Schedule Diagnoses Cardiovascular Disease Outpatient Referral Routine Expected: office visit (clinic) 2021, General Expires: 02/16/2023 documented as of this encounter Procedures Procedure Name Priority Date/Time Associated Diagnosis Comme nts HEMOGLOBIN A1C, B Routine 11/12/2021 8:56 AM Impaired Fasting Results for this CDT Glucose procedure are i n the results section. documented in this encounter Results (ABNORMAL) Basic Metabolic Panel (11/20/2021 12:18 PM CDT) athologist Signature Potassium, S 4.6 3.6 - 5.2 11/20/2021 DTL mmol/L 1:26 PM CDT Sodium, S 140 135 - 145 11/20/2021 DTL mmol/L 1:26 PM CDT Chloride, S 98 98 - 107 11/20/2021 DTL mmol/L 1:26 PM CDT Bicarbonate, S 30 (H) 22 - 29 11/20/2021 DTL mmol/L 1:26 PM CDT Anion Gap 12 7 - 15 11/20/2021 DTL 1:26 PM CDT BUN (Blood Urea 16 6 - 21 11/20/2021 DTL Nitrogen), S mg/dL 1:26 PM CDT Creatinine 0.87 0.59 - 11/20/2021 DTL 1.04 mg/dL 1:26 PM CDT Estimated GFR 70 >=60 11/20/2021 DTL (eGFR) mL/min/BSA 1:26 PM CDT Comment: Estimated GFR calculated using the 2020 CKD_EPI creatinine equation. Calcium, Total, S 9.6 8.8 - 10.2 mg/dL 11/20/2021 1:26 PM CDT DTL Glucose, S 101 70 - 140 mg/dL 11/20/2021 1:26 PM CDT D TL Specimen Anatomical Collection Method Collection Time Receive d Time (Source) Location / / Volume Laterality Blood (Blood, 11/20/2021 12:18 11/20/2021 1:03 Venous) PM CDT PM CDT Venkata Mayen M.D. LAB BLOOD ADD-ON Performing Organization Address City/State/ZIP Code Phon e Number [facility] - [address] [place], [place] [address] [facility] [place] [address] [facility] [address] Hemoglobin A1c (11/12/2021 8:56 AM CDT) athologist Signature Hemoglobin A1c, 5.6 4.0 - 5.6 11/14/2021 DTL B % 5:13 PM CDT Specimen Anatomical Collection Method Collection Time Receive d Time (Source) Location / / Volume Laterality Blood (Blood, 11/12/2021 8:56 AM 11/15/19 4:00 Venous) CDT PM CDT Venkata Mayen M.D. LAB BLOOD ADD-ON Performing Organization Address City/State/ZIP Code Phon e Number [facility] - [address] [place], [place] [address] [facility] [place] [address] [facility] [address] documented in this encounter Visit Diagnoses Diagnosis Dyspnea Multifactorial - Primary Impaired Fasting Glucose Regurgitation 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) Pain Chest Ischemic Heart Chronic Disease documented in this encounter Additional Health Concerns Assessment Noted Time PHQ-9 Depression Total Score: 6 08/20/2012 4:08 PM CDT documented as of this encounter
--- OUTSIDE RECORDS SUMMARY | 2022-01-10 09:00 | XMS_ITS | Encounter Summary ---
:1950 Author Organization [facility] Address [address] [place] [address] Care Team Providers Name Role Phone Unavailable Primary Care Provider Unavailable Reason for Referral MRI/CAT/PET Scan (Routine) - Closed Specialty Diagnoses / Procedures Referred By Contact Refer red To Contact Radiology Diagnoses Dyspnea On Exertion 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 [facility] Procedures CT Cardiac Angiogram Structure Morphology with IV Contrast [address] [place] [address] Referral ID Status Reason Start Date Expiration Date Visits Requ ested Visits Authorized [id number] Closed 11/09/2021 11/09/2022 1 1 Encounter Details Date Type Department Care Team Description 11/20/2021 Hospital Encounter Department of Venkata Mayen Dyspnea On Exertion; Radiology, Rosa Rivera M.D. 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 How many drinks containing alcohol [...] or relatives? How often do you attend holiness or More than 4 times per year 11/13/2021 synagogue services? Do you belong to any clubs or Yes 11/13/2021 organizations such as holiness groups, unions, fraternal or athletic groups, or [...] place to sleep or slept in a skilled nursing (including now)? Education Answer Date Recorded What is the highest level of school you have completed or 12 th grade 10/02/2020 the highest degree you have received? 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 Last Filed Vital Signs Vital Sign Reading Time Taken Comments Blood Pressure - - Pulse - - Temperature - - Respiratory Rate - - Oxygen Saturation - - Inhaled Oxygen Concentration - - Weight 95.7 kg (210 lb 15.7 oz) 11/20/2021 1:50 PM CDT Height 158 cm (5' 2.21) 11/20/2021 1:50 PM CDT Body Mass Index 38.33 11/20/2021 1:50 PM CDT documented in this encounter Medications at Time [...] Procedure Name Priority Date/Time Associated Comments Diagnosis CT CARDIAC RAD - Routine 11/20/2021 2:39 Dyspnea On Results for this ANGIOGRAM (most inpatients PM CDT Exertion procedure are in STRUCTURE and all Stenosis Mitral the results MORPHOLOGY WITH IV outpatients) Not Rheumatic section. CONTRAST Acquired Regurgitation Mitral Ischemic Heart Chronic Disease CT ABDOMEN PELVIS RAD - Routine 11/20/2021 2:39 Dyspnea On Result s for this ANGIOGRAM WITH IV (most inpatients PM CDT Exertion procedure are in CONTRAST and all Stenosis Mitral the results outpatients) Not Rheumatic section. Acquired Regurgitation Mitral Ischemic Heart Chronic Disease documented in this encounter Results CT Abdomen Pelvis Angiogram with IV Contrast [...] Findings section. Venkata RODRIGUEZ CT PROCEDURES CT Cardiac Angiogram Structure Morphology with IV [...] the Findings section. 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 Regurgitation Mitral Ischemic Heart Chronic Disease documented in this encounter Administered Medications Inactive Administered Medications - up to 3 most recent administrations Medication Order MAR Action Action Date Dose Rate Site iohexoL 350 mg iodine/mL solution Given 11/20/2021 2:41 PM CDT 1 00 mL 1-200 mL (OMNIPAQUE) 1-200 mL, intravenous, Once in imaging, contrast, Starting on Fri11/20/21 at 1350, For 1 dose, Imaging Protocol Orders, Dose per Radiant Medication Guidelines sodium chloride (PF) 0.9 % injection 1-1 00 mL Given 11/20/2021 2:41 PM CDT 30 mL 1-100 mL, intravenous, Once, On Fri11/20/21 at 1400, For 1 dose, Imaging Protocol Orders documented in this encounter Additional Health Concerns Assessment Noted Time PHQ-9 Depression Total Score: 6 08/20/2012 4:08 PM CDT documented as of this encounter
--- OUTSIDE RECORDS SUMMARY | 2022-01-10 09:00 | XMS_ITS | Encounter Summary ---
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 [place] Coronary Artery Without Angina Pectoris Cardiac Disease Melinda Ochoa [facility] Cardiovascular Disease P.AAguilar-Tonja [address] [place] [address] Referral ID Status Reason Start Date Expiration Date Visits Requ ested Visits Authorized [id number] Closed 11/21/2021 11/21/2022 1 1 Encounter Details Date Type Department Care Team Description 11/21/2021 Clinical Communication Department of Melinda Ochoa Cardiovascular Medicine Javed Velasquez in [employer] 200 [facility] [address] [place] [phone] Social History Tobacco Use Types Packs/Day Years Used Date Smoking Tobacco: Former Cigarettes 0 0 /0 08/1965 - 04/01/1979 Smokeless Tobacco: Never Alcohol Use Standard Drinks/Week Comments Yes 10 (1 standard drink = 0.6 oz pure alcoh ol) Alcohol Habits Answer Date Recorded How often do you have a drink containing 4 or more times a w venetie ira 11/13/2021 alcohol? How many drinks containing alcohol [...] or relatives? How often do you attend episcopal or More than 4 times per year 11/13/2021 judaism services? Do you belong to any clubs or Yes 11/13/2021 organizations such as episcopal groups, unions, fraternal or athletic groups, or [...] place to sleep or slept in a residential (including now)? Education Answer Date Recorded What is the highest level of school you have completed or 12 th grade 10/02/2020 the highest degree you have received? 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 Plan of Treatment Scheduled Orders Name Type Priority Associated Diagnoses Order S chedule ECG 12 Lead ECG Routine Coronary Artery Disease With out Expected: 12/21/2021 Angina Pectoris (Approximate), Expires: Atherosclerotic Heart Diseas e 02/20/2023 Of [place] Coronary Artery Without Angina P ectoris Cardiac Disease Scheduled Referrals Name Type Priority Associated Order Schedule Diagnoses Cardiovascular Disease Outpatient Referral Routine Coronary Ar kitty Expected: - General cardiology Disease Without 11/24 consult (clinic) Angina Pectoris (Approximate), Atherosclerotic Expires: Heart Disease Of 02/20/2023 [place] Coronary Artery Without Angina Pectoris Cardiac Disease documented as of this encounter Visit Diagnoses Diagnosis Coronary Artery Disease Without Angina P ectoris - Primary Atherosclerotic Heart Disease Of [place] Coronary Artery Without Angina Pectoris Cardiac Disease documented in this encounter Additional Health Concerns Assessment Noted Time PHQ-9 Depression Total Score: 6 08/20/2012 4:08 PM CDT documented as of this encounter
--- OUTSIDE RECORDS SUMMARY | 2022-01-10 09:00 | XMS_ITS | Encounter Summary ---
:1950 Author Organization [facility] Address [address] [place] [address] Care Team Providers Name Role Phone Unavailable Primary Care Provider Unavailable Encounter Details Date Type Department Care Team Description 11/22/2021 Surgery Division of Cardiovascular Harshad, Kishan, PERCUTANEOUS CORONARY Diseases in [place], Tiffanie, Ph. D. INTERVENTION [address] [place] [phone] Social History Tobacco Use Types Packs/Day Years Used Date Smoking Tobacco: Former Cigarettes 0 0 06/0 08/1965 - 04/01/1979 Smokeless Tobacco: Never Alcohol Use Standard Drinks/Week Comments Yes 10 (1 standard drink = 0.6 oz pure alcoh ol) Alcohol Habits Answer Date Recorded How often do you have a drink containing 4 or more times a w lumbee 11/13/2021 alcohol? How many drinks containing alcohol [...] or relatives? How often do you attend adventism or More than 4 times per year 11/13/2021 temple services? Do you belong to any clubs or Yes 11/13/2021 organizations such as adventism groups, unions, fraternal or athletic groups, or [...] place to sleep or slept in a fpc (including now)? Education Answer Date Recorded What is the highest level of school you have completed or 12 th grade 10/02/2020 the highest degree you have received? 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 - 11/23/2021 11:45 AM CDT CARDIOLOGY HOSPITAL DISCHARGE SUMMARY DATE OF ADMISSION: 11/21/2021 DATE OF DISCHARGE: 11/23/2021 Discharge Provider: Jean Carlos Martinez M.D. Discharge Provider Team: RUBY CARD 3 PRINCIPAL DIAGNOSIS Coronary artery disease [...] the outpatient setting. She was seen by [facility] outpatient cardiology on 11/14 where it was recommended that her echocardiogram berepeated and she undergo cardiac CT angiogram for further characterization of her mitral valve anatomy; CT showed severe mitral anular calcification. On 11/16 she had a telephone visit with her outpatient primary Hostess Host where she endorsed left-sided chest discomfort with [...] an SGLT-2 inhibitor was considered, however the uhx-gg-csrkfzsuga was greater than $700 for a 3 [...] Home ASA/clopidogrel resumed. IV heparin started after garage laborer visit yesterday. Back to garage laborer today. Medications reviewed. Changes to medications anticipated [...] (two) times a day. miscellaneous medical supply [facility] CPAP machine for home use [...] Hg No left atrial appendage thrombus No ycszz-wf-bpwg shunt at atrial level at rest or [...] y.o. female who presented to the cardiac garage laborer for L/RHC in the setting of progressing [...] spironolactone 10 mEq KCl once back from garage laborer Continue dual antiplatelet therapy with aspirin 81 [...] Hospital Admission Note CV-3 REFERRAL SOURCE: Drs. aMyen, Kimberlee. SUBJECTIVE Please see the detailed progress note as annotated by my colleague, Ms. LANDRY Ochoa PA-C, elsewhere in the electronic record from earlier today which I have reviewed and agree with as recorded. I met with the patient and discussed findings and plans. The patient is a 71 year old woman admitted from the garage laborer yesterday with an severe osteal instent restenosis [...] Dyspnea On Exertion Atherosclerotic Heart Disease Of [place] Coronary Artery Without Angina Pectoris Regurgitation Mitral Chronic Diastolic (Congestive) Heart Failure (HCC) Pain Chest Cardiac Disease Allergies Allergies Allergen Reactions Sulfa (Sulfonamide Antibiotics) Other (see comments) ASSESSMENT / PLAN #1 Cardiac Disease #2 Ischemic Heart Chronic Disease #3 Impaired Fasting Glucose #4 Dyspnea On Exertion #5 Atherosclerotic Heart Disease Of [place] Coronary Artery Without Angina Pectoris #6 Regurgitation [...] Collaborating physician: Carlos Montes M.D. Admitting service: T CARD 3 HISTORY OF PRESENT ILLNESS Ms. [...] the outpatient setting. She was seen by [facility] outpatient cardiology on 11/14 where it was recommended that her echocardiogram berepeated and she undergo cardiac CT angiogram for further characterization of her mitral valve anatomy; CT showed severe mitral anular calcification. On 11/16 she had a telephone visit with her outpatient primary Hostess Host where she endorsed left-sided chest discomfort with [...] CORONARY ANGIOGRAPHY; Surgeon: Dontae Rubio M.D.; Location: [facility] CATH ANGIOGRAM N/A 11/14/2020 Procedure: Left Heart Catheterization; Surgeon: Dontae Rubio M.D.; Location: [facility] CATH INTERVENTION N/A 11/14/2020 Procedure: Coronary Atherectomy; Surgeon: Dontae Rubio M.D.; Location: [facility] CATH INTERVENTION N/A 11/14/2020 Procedure: Stent Placement; Surgeon: Dontae Rubio M.D.; Location: [facility] CATH PTCA N/A 11/14/2020 Procedure: Percutaneous Coronary Angioplasty; Surgeon: Dontae Rubio M.D.; Location: [facility] CORONARY STENT PLACEMENT 1999 and [...] day.), 11/21/2021 at 0430 miscellaneous medical supply [facility], CPAP machine for home use [...] Hg No left atrial appendage thrombus No eiwbg-vz-crgf shunt at atrial level at rest or [...] y.o. female who presented to the cardiac garage laborer for LHC and RHC in the settingof [...] chest pain/pressure. She will proceed to the garage laborer tomorrow for planned PCI with Dr. Ocampo [...] the cardiac rehab program. Patient referred to: [facility] Cardiac Rehabilitation [address] [place] [address] P:[phone] F:[phone] Recommend that the patient check with insurance company to verify coverage of the cost of cardiac rehabilitation program visits. documented in this encounter Nursing Notes Alyssa Worley, RAguilarN. - 11/23/2021 12:30 PM CDT Shift [...] Implant Name Type Inv. Item Serial No. Boom Crane Operator Lot No. LRB No. Used Action STNT RONYX MARLY RX [id number] - [id number] Cardiac Stent STNT RONYX MARLY RX [id number] [employer] [id number] 1 Implanted Operators: Kishan Patricia M.D., Ph.D. Carmen Kaplan M.D. Indication: Unstable angina Access Site(s): Right common femoral artery, 6 Yoruba sheath(s). Protamine administered for reversal, sheath securedin place to be removed using manual compression for hemostasis in recovery Complications: No Recommendations: -Aspirin 81mg daily indefinitely barring any complications -Clopidogrel 75 mg daily for at least 12 months as part of dual antiplatelet therapy from 11/22/21 -Transfer back to cardiology floor service, anticipated discharge tomorrow Please see quality improvement consultant cath operative report for further information. [...] the outpatient setting. She was seen by [facility] outpatient cardiology on 11/14 where it was recommended that her echocardiogram berepeated and she undergo cardiac CT angiogram for further characterization of her mitral valve anatomy; CT showed severe mitral anular calcification. On 11/16 she had a telephone visit with her outpatient primary Hostess Host where she endorsed left-sided chest discomfort with [...] an SGLT-2 inhibitor was considered, however the ols-hb-cehdgubbcy was greater than $700 for a 3 [...] rdered: cardiac rehab Status Post 11/23/2021 program (non-[place]) documented as of this encounter Procedures Procedure [...] for this CATHETERIZATION PM CDT Disease Of [place] procedu re are in Coronary Artery the results Without Angina section. Pectoris CARDIAC Routine 11/22/2021 4:17 Atherosclerotic Heart Res ults for this CATHETERIZATION PM CDT Disease Of [place] procedu re are in Coronary Artery the results Without Angina section. Pectoris CARDIAC Routine 11/22/2021 4:17 Atherosclerotic Heart Res ults for this CATHETERIZATION PM CDT Disease Of [place] procedu re are in Coronary Artery the results Without Angina section. Pectoris CARDIAC Routine 11/22/2021 4:17 Atherosclerotic Heart Res ults for this CATHETERIZATION PM CDT Disease Of [place] procedu re are in Coronary Artery the results Without Angina section. Pectoris CARDIAC Routine 11/22/2021 4:17 Atherosclerotic Heart Res ults for this CATHETERIZATION PM CDT Disease Of [place] procedu re are in Coronary Artery the [...] Organization Address City/State/ZIP Code Phon e Number [facility] - [address] [place], [place] [address] [facility] [address] Laboratories-[facility] [address] (ABNORMAL) Basic [...] Laterality Blood (Blood, 11/23/2021 9:45 AM 11/24/19 Venous) CDT 10:26 AM CDT Melinda Ochoa P.A.-C. LAB BLOOD ADD-ON Performing Organization Address City/State/ZIP Code Phon e Number [facility] - 200 [place], [place] [address] [facility] [address] Laboratories-[facility] 200 [facility] ECG 12 Lead (11/22/2021 4:32 PM CDT) P athologist Signature Ventricular Rate 79 BPM MUSE ECG/Min CT Interval 174 ms MUSE QRSD Interval 98 ms MUSE QT Interval 426 ms MUSE QTC Interval 488 ms MUSE P [place] 62 degrees MUSE R [place] 53 degrees MUSE T Wave [place] -2 degrees MUSE Specimen Anatomical Collection Method [...] City/State/ZIP Code Phon e Number POC RST [facility] INPATIENT [address] [place], [place] [address] [place] [address] [place] POC [address] [facility] [facility] [address] PERCUTANEOUS CORONARY INTERVENTION, LASER, INTRAVASCULAR ULTRASOUND, [...] City/State/ZIP Code Phon e Number POC RST [facility] INPATIENT [address] [place], [place] [address] LABS [facility] [place] [address] [place] POC [address] (ABNORMAL) ACT (Activated Clotting Time), POCT (11/22/2021 2:17 PM CDT) athologist Signature Activated 393 (H) 84 - 139 11/22/2021 PCSM Clotting Time, sec 2:24 PM CDT POCT Specimen Anatomical Collection Method Collection Time Receive d Time (Source) Location / / Volume Laterality Blood 11/22/2021 2:17 PM 2:24 CDT PM CDT Unknown Provider LAB POCT ORDERABLES - DEVICE Performing Organization Address City/State/[facility] Code Phon e Number POC RST [facility] INPATIENT [address] [place], [place] [address] LABS [facility] [place] [address] [place] POC [address] (ABNORMAL) Basic [...] P.A.-C. LAB BLOOD ADD-ON Performing Organization Address City/[facility] Phon e Number [facility] - [address] (ABNORMAL) CBC without Differential (11/22/2021 5:13 [...] Blood (Blood, 11/22/2021 5:13 AM 11/23/19 22 5:55 Venous) CDT AM CDT Melinda Ochoa P.A.-C. LAB BLOOD ADD-ON Performing Organization Address City/[facility] Phon e Number [facility] - [address] Heparin Anti-Xa Assay (11/22/2021 5:12 AM [...] Organization Address City/State/ZIP Code Phon e Number [facility] - [address] [place], [place] [address] [place] [address] Laboratories-[facility] 200 [facility] Heparin Anti-Xa Assay (11/21/2021 10:11 PM CDT) P athologist Signature Heparin 0.32 IU/mL 11/21/2021 [facility] Anti-Xa, P 10:39 PM CDT Comment: UFH [...] Organization Address City/State/ZIP Code Phon e Number [facility] - 200 [place], [place] [address] [place] [address] [place] [address] Laboratories-[address] Magnesium (11/21/2021 3:37 PM CDT) P athologist Signature Magnesium, S 2.1 1.7 - 2.3 11/21/2021 DTL mg/dL 5:03 PM CDT Specimen Anatomical Collection Method Collection Time Receive d Time (Source) Location / / Volume Laterality Blood (Blood, 11/21/2021 3:37 PM 11/22/19 4:44 Venous) CDT PM CDT Melinda Ochoa P.A.-C. LAB BLOOD ADD-ON Performing Organization Address City/[facility] Phon e Number [facility] - [address] (ABNORMAL) CBC with Differential, Blood (11/21/2021 [...] Organization Address City/State/ZIP Code Phon e Number [facility] - [address] [place] [address] [facility] [address] Laboratories-[facility] 200 [facility] (ABNORMAL) Basic Metabolic Panel (11/21/2021 3:37 PM CDT) athologist Signature Potassium, S 3.9 3.6 [...] Organization Address City/State/ZIP Code Phon e Number [facility] - [address] [place], [place] [address] [facility] [address] Laboratories-[facility] [address] Echo - [...] ft anterior descending artery and second septal collar padder blindstitch. RADIATION DOSE DATA Procedure cumulative skin dose [...] Disease Cardiac Disease Atherosclerotic Heart Disease Of [place] Coronary Artery Without Angina Pectoris Coronary Stent Status Post Impaired Fasting Glucose Dyspnea On Exertion Ischemic Heart Chronic Disease Regurgitation 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) Pain Chest Atherosclerotic Heart Disease [place] Coronary Artery Without Angina Pectoris Impaired Fasting Glucose Dyspnea Multifactorial Regurgitation 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) Pain Chest Ischemic Heart Chronic Disease Atherosclerotic Heart Disease Of [place] Coronary Artery Without Angina Pectoris documented in this encounter Admitting Diagnoses Diagnosis Impaired Fasting Glucose Dyspnea On Exertion Ischemic Heart Chronic Disease Regurgitation 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) Pain Chest Cardiac Disease Atherosclerotic Heart Disease Of [place] Coronary Artery Without Angina Pectoris documented in [...] mg, rectal, Daily PRN, constipation, Starting on Th u 11/22/21 at 1625, Postprocedure (CV), PO [...] 10 mg fentaNYL injection 25 mcg (SUBLIMAZE) Given 11/22/2021 4:00 PM CDT 25 mcg 25 mcg, intravenous, Every 2 min PRN, sedation, Administer over 1 minute immediately prior to the procedure. May repeat every 2 minutes to a maximum of 200 mcg, until pain score of 3 or less, or until the patient meets the pain comfort goal. Do not give if respiratory rate is less than 8 breaths/minute, Starting on Cortney 11/22/21 at 1351, Intraprocedure (CV) Given 11/22/2021 3:41 PM CDT 25 mcg Given 11/22/2021 2:52 PM CDT 50 mcg fentaNYL injection 25 mcg (SUBLIMAZE) 25 [...] 20 mg heparin (porcine) 1,000 unit/mL Given 11/22/2021 3:52 PM CDT 2,0 00 Units injection As needed, Starting on Cortney 11/22/21 at 1403, Intraprocedure (CV) Given 11/22/2021 2:03 PM CDT 7,000 Units iohexoL 350 mg iodine/mL solution ([place]) Given 11/22/2021 4:08 PM CDT 190 mL As needed, Starting on Cortney 11/22/21 at 1608, Intraprocedure (CV) lidocaine 10 mg/mL (1 %) injection Given 11/22/2021 1:59 PM CDT 5 mL Right Groin (XYLOCAINE) As needed, Starting on Cortney 11/22/21 at 1359, Intraprocedure (CV) midazolam (PF) injection 1 mg (VERSED) Given 11/22/2021 4:00 PM CDT 0.5 mg 1 mg, intravenous, Every 2 min PRN, sedation, RASS 0, Starting on Cortney 11/22/21 at 1351, Intraprocedure (CV), May repeat every 2 minutes for a maximum of 5 mg. Do not give if respiratory rate is less than 8 breaths/minute. Given 11/22/2021 3:41 PM CDT 0.5 mg Given 11/22/2021 2:53 PM CDT 0.5 mg morphine injection Given 11/22/2021 3:28 PM CDT 5 mg As needed, Starting on Cortney 11/22/21 at 1503, Intraprocedure (CV) Given 11/22/2021 3:03 PM CDT 5 mg naloxone injection 0.2 mg (NARCAN) 0.2 mg, [...] for antiemetic medication administration Ondansetron then Promethazine). protamine injection Given 11/22/2021 4:13 PM CDT 30 mg As needed, Starting on Cortney 11/22/21 at 1613, Intraprocedure (CV) rosuvastatin tablet 40 mg (CRESTOR) Given 11/22/2021 [...] 11/23/2021 aspirin chewable tablet 243 mg (COMPLETED) 0915 (Given - Provider: Leopoldo Ross RNila) 243 mg, oral, Once, On Fri11/21/21 at 0915, For 1 dose, Preproce dure (CV) aspirin chewable tablet 243 mg (COMPLETED) 1249 (Given - Provider: Mary Rojas R.N., [facility]) 243 mg, oral, Once, On Fri11/22/21 [...] at 0900 clopidogreL tablet 75 mg (PLAVIX) 24 ( Given - Provider: Annel Phelan R.N.)1238 [...] R.N.)1128 (Given - Provider: Annel Phelan R.N.)1238 (MAY Hold - Provider: Transfer Provider, Automatic - Reason: Patient not available)1738 (MAY Unhold - Provider: Transfer Provider, Automatic) 0617 [...] 2035 (Given - Prov ider: Radha Ha R.N.) 1238 (MAY Hold - Provider: Transfer Prov ider, Automatic - Reason: Patient not available)173 (MAY Unhold - Provider: Transfer Provider, Automatic)2003 (Given - Provider: Blaise Moses R.N.) 40 mg, oral, Daily at bedtime, First dose on Fri11/21/21 at 2100 sertraline tablet 100 mg (ZOLOFT) 2035 (Given - Provid er: Radha Ha R.N.) 1238 (MAY Hold - Provider: Transfer Prov ider, Automatic - Reason: Patient not available)173 (MAY Unhold - Provider: Transfer Provider, Automatic)2002 [...] R.N.)1333 (Stopped - Provider: Mary Rojas R.N., [facility]) 0-40 Units/kg/hr ? 95.8 kg Dosing weight [...] acetaminophen tablet 500 mg (TYLENOL) 12 38 ([facility] Hold - Provider: Transfer Provider, Automatic - Reason: Patient not available)1738 ([facility] Unhold - Provider: Transfer Provider, Automatic) [...] DR tablet 10 mg (DULCOLAX) 123 8 ([facility] Hold - Provider: Transfer Provider, Automatic - Reason: Patient not available)1738 ([facility] Unhold - Provider: Transfer Provider, Automatic) [...] tablet 400 mg of calcium (TUMS) 1238 ([facility] Hold - Provider: Transfer Provider, Automatic - Reason: Patient not available)1738 ([facility] Unhold - Provider: Transfer Provider, Automatic) 400 mg of calcium, oral, Every [address] N, indigestion, Not to exceed 12 tablets in 24 hours, Starting on Fri11/21/21 at 1414, Doses listed are in mg of elemental calcium. Take with food. 500 mg calcium carbonate contains 200 mg of elemental calcium. docusate sodium capsule 100 mg (COLACE) 1238 ([facility] Hold - Provider: Transfer Provider, Automatic - Reason: Patient not available)1738 ([facility] Unhold - Provider: Transfer Provider, Automatic) 100 mg, oral, 2 times daily PRN, constip ation, Starting on Fri11/21/21 at 1413, Do NOT crush or chew. fentaNYL injection (SUBLIMAZE) (CANCELED) 1050 (Given - Provider: Philly Donnelly R.N.)1123 (Given - Provider: Emily Joyner R.N.) As needed, Starting on 11/21/21 at 1050, Intraprocedure (CV) fentaNYL injection 25 [...] Bruna Yanez R.N.) As needed, Starting on Fri11/22/21 at 1503, [...]
--- OUTSIDE RECORDS SUMMARY | 2022-01-10 09:00 | XMS_ITS | Encounter Summary ---
:1950 Author Organization [facility] Address [address] [place] [address] Care Team Providers Name Role Phone Unavailable Primary Care Provider Unavailable Encounter Details Date Type Department Care Team Description 11/20/2021 Hospital Encounter Department of Venkata Mayen Impaired Fasting Glucose; Laboratory Medicine Tiffanie Rivera Dyspnea Multifactorial; and Pathology, [address] [place] [address] Regurgitation Mitral; [facility], in [place], [place] Chronic Diastolic (Congestive) Heart Failure (HCC) [place], [place] [address] [place] [address] [place], [place] (Work) [phone] Social History Tobacco Use Types Packs/Day Years Used Date Smoking Tobacco: Former Cigarettes 0 0 06/0 08/1965 - 04/01/1979 Smokeless Tobacco: Never Alcohol Use Standard Drinks/Week Comments Yes 10 (1 standard drink = 0.6 oz pure alcoh ol) Alcohol Habits Answer Date Recorded How often do you have a drink containing 4 or more times a w [place] 11/13/2021 alcohol? 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 Regurgitation Mi tral Chronic Diastolic (Congestive) Heart Failure (HCC) documented in this encounter Results (ABNORMAL) Basic Metabolic Panel (11/20/2021 12:18 PM CDT) P athologist Signature Potassium, S 4.6 3.6 - [...] Organization Address City/State/ZIP Code Phon e Number [facility] - [address] [place], [place] [address] [facility] [place] [address] [facility] [address] documented in this encounter Visit Diagnoses Diagnosis Impaired Fasting Glucose Dyspnea Multifactorial Regurgitation Mitral Chronic Diastolic (Congestive) Heart Jose santhosh (HCC) documented in this encounter Additional Health Concerns Assessment Noted Time PHQ-9 Depression Total Score: 6 08/20/2012 4:08 PM CDT documented as of this encounter
--- OUTSIDE RECORDS SUMMARY | 2022-01-10 09:00 | XMS_ITS | Encounter Summary ---
:1950 Author Organization [facility] Address [address] [place] [address] Care Team Providers Name Role Phone Unavailable Primary Care Provider Unavailable Reason for Visit Outpatient (Routine) - Closed Specialty Diagnoses / Procedures Referred By Contact Refer red To Contact Cardiovascular Disease Venkata Mayen [place] M.D. [address] [place] [address] Referral ID Status Reason Start Date Expiration Date Visits Requ ested Visits Authorized [id number] Closed 11/16/2021 11/15/2024 1 1 Encounter Details Date Type Department Care Team Description 11/20/2021 Office Visit Department of Venkata Mayen Angina Progres sive ([facility]) (Primary Dx); Cardiovascular Medicine Gus Rivera Ischemic Heart Chronic Disease; in [facility] pretty [address] [facility] Regurgitation Mitral; [address] [place], [place] Dyspnea On Exertion; [place] [phone] Chronic Diastolic (Congestive) Heart Joseisabelle trevizo ([facility]) [phone] Social History Tobacco Use Types Packs/Day Years Used Date Smoking Tobacco: Former Cigarettes 0 0 06/0 08/1965 - 04/01/1979 Smokeless Tobacco: Never Tobacco Cessation: Counseling Given: No Alcohol Use Standard Drinks/Week Comments Yes 10 (1 standard drink = 0.6 oz pure alcoh ol) Alcohol Habits Answer Date Recorded How often do you have a drink containing 4 or more times a w [place] 11/13/2021 alcohol? How many drinks containing alcohol [...] or relatives? How often do you attend sikhism or More than 4 times per year 11/13/2021 confucianism services? Do you belong to any clubs or Yes 11/13/2021 organizations such as sikhism groups, unions, fraSenzari or athletic groups, or school groups? How [...] place to sleep or slept in a usp (including now)? Education Answer Date Recorded What is the highest level of school you have completed or 12 th grade 10/02/2020 the highest degree you have received? 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 - 11/20/2021 3:00 PM CDT SUBJECTIVE HISTORY OF PRESENT ILLNESS Ivonne Collins is a 71 y.o. female who returns to [facility] for additionalevaluation after completing the cardiac CT study earlier this afternoon (results not available at the time of our consultation). I saw Ivonne on 14 November 2021 and spoke to her via telephone on 16 November 2021 (please see prior consultation note and addendum for details). Last week Ivonne experienced exertional left-sided chest discomfort in concert with left jaw discomfort while cycling (symptoms resolved within several minutes following decreasing activity and then rest). The chest discomfort was new for her; however, the left jaw discomfort has occurred with exertion on a few occasions over the past 4 to 6 weeks and at times has been associated with left scapular discomfort. She typically has experienced these symptoms at higher levels of exercise (increased cycling speed or resistance) and symptoms generally resolve with decreasing level of activity or rest. Duration of symptoms is typically s everal minutes (has not experienced any symptoms lasting longer than 5 minutes). She experienced recurrent exertional chest and jaw discomfort today following her CT study; she is asymptomatic at the time of my evaluation. He is not experienced rest or nocturnal symptoms and upon additional questioning, does not recall any similar symptoms at the time of her abrupt decompensation earlier this month. No new exertional dyspnea, dyspnea at rest, paroxysmal nocturnal dyspnea, orthopnea. No palpitations,lightheadedness, or syncope. Weight at home has been stable; no dietary sodium indiscretions since our last visit. Cardiac medications include ramipril 10 mg daily, verapamil 240 mg daily, furosemide 40 mg twice daily, potassium chloride 40 mEq daily, rosuvastatin 40 mg daily, ezetimibe 10 mg daily, aspirin 81 mg daily, clopidogrel 75 mg daily, and nitroglycerin sublingual as needed. REVIEW OF SYSTEMS The following portions of the patient's history were reviewed: allergies, current medications, family history, medical history, social history, surgical history and problem list. OBJECTIVE BP 106/64 (BP Location: Left arm, Patient Position: Sitting, Cuff Size: Regular) Comment: 6 minute average Pulse 77 Ht 158 cm Wt 95.7 kg BMI 38.33 kg/m?? Weight fully dressed with shoes 96.8 kg. PHYSICAL EXAMINATION General: Increased body habitus. Well groomed. No distress. Psychiatric: Normal mood and affect. Alert and oriented. Head: Normocephalic, atraumatic. Eyes: No xanthelasma or conjunctivitis. Neck: Jugular venous pressure approximately 8 cm. Carotid upstroke is preserved. No carotid [...] Positive bowel sounds. Soft and nontender. No ascites detected. Extremities: No clubbing or cyanosis. Lipedema and trace pretibial edema. Neurologic: No focal deficits appreciated on limited examination. Gait: No significant gait instability observed. Skin: No stasis dermatitis or ulceration identified in the visualized areas. DIAGNOSTICS I have reviewed the patient's current laboratory, imaging, and other diagnostic studies. Laboratory with normal sodium, potassium 4.6, and creatinine 0.87 mg/dL. 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 The exertional anginal symptoms are of recent onset and separate from her longstanding exertional dyspnea symptomatology, thus raise concern for new, high-grade obstructive coronary artery disease and/or coronary stent restenosis. Recommend coronary angiography and she is agreeable to proceed tomorrow (clopidogrel 75 mg daily initiated on November 17 and she was instructed to take 324 mg of aspirin and 75 mg of clopidogrel tomorrow morning); [id number] PCR testing arranged for today and cardiac catheterization instruction pamphlet provided. After careful review of her coronary arteries and in particular the ostial right coronary artery (aswell as assessing LVEDP) tomorrow, a decision can be made with respect to right and left heart catheterization +/- exercise. We discussed the possibility of repeat percutaneous coronary revascularization and the unlikely event of coronary revascularization best addressed through surgery (as well as how addressing the mitral valve may impact this decision). With respect to the valvular disease, we again discussed potential options of a invasive/interventional approach (surgical MVR or transcatheter MVR) as well as contrasted the interventional approach to continued pharmacotherapy aimed at optimizing hemodynamics and volume status. I anticipate adding a SGLT2i +/- spironolactone following the coronary angiogram and if tomorrow's study demonstrates significant obstructive coronary artery disease, then I anticipate deferring RHC + exercise until her CAD is addressed and the above medical therapy has been introduced. Await results of today's CT study in case this changes our diagnostic and/or treatment approach. Patient Education: Ready to learn, no apparent learning barriers were identified; learning preferences include listening. Explained diagnosis and treatment plan; patient expressed understanding of the content. I believe all questions were answered. documented in this encounter Plan of Treatment Not on filedocumented as of this encounter Visit Diagnoses Diagnosis Angina Progressive (HCC) - Primary Ischemic Heart Chronic Disease Regurgitation Mitral Dyspnea On Exertion Chronic Diastolic (Congestive) Heart Jose lure (HCC) documented in this encounter Additional Health Concerns Infection Onset Date Last Indicated Resolved Time COVID19 Pending 11/20/2021 11/20/2021 11/20/2021 11:15 PM CDT Assessment Noted Time PHQ-9 Depression Total Score: 6 08/20/2012 4:08 PM CDT documented as of this encounter
--- OUTSIDE RECORDS SUMMARY | 2022-01-10 09:01 | XMS_ITS | Encounter Summary ---
:1950 Author Organization [facility] Address [address] [place] [address] Care Team Providers Name Role Phone Unavailable Primary Care Provider Unavailable Reason for Visit Reason Comments Med Refill Encounter Details Date Type Department Care Team Description 04/12/2021 Refill Department of Cardiovascular Ask Venkata benitez M.D. Med Refill Medicine in [place], [place] [address] [facility] [address] [place] [phone] (Wo rk) Social History Tobacco Use Types Packs/Day Years Used Date Smoking Tobacco: Former Cigarettes 0 0 /0 08/1965 - 04/01/1979 Smokeless Tobacco: Never Alcohol Use Standard Drinks/Week Comments Yes 10 (1 standard drink = 0.6 oz pure alcoh ol) Alcohol Habits Answer Date Recorded How often do you have a drink containing 4 or more times a w [place] 11/13/2021 alcohol? How many drinks containing alcohol [...] More than 4 times per year 11/13/2021 denominational services? 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 Collins calls back and states she has no preference whether she takes one tablet or two. GLE TRIMMER Telephone Encounter - Izabel Salguero - 04/12/2021 8:13 AM CST SUBJECTIVE CHIEF COMPLAINT / REASON FOR CALL Med Refill Name of caller/relationship to the patient: Mrs. Collins Patient expects communication via portal: No Phone number: [phone] Request topic and what needs to be addressed? Medication Name: Ramipril Dosage/Strength: 5 mg Frequency/Directions: Take two tablets daily [facility] [place] [place] Other important information (urgency, provider away for an extended time, strength or direction change from previous): Patient calls stating Dr. Mayen issued a prescription for Ramipril in December. She changed Pharmacies and never got the medication. She is now out and would like the prescription sent to [facility] in [place], [place] GLE TRIMMER documented in this encounter Plan of Treatment Not on filedocumented as of this encounter Visit Diagnoses Not on filedocumented in this encounter Additional Health Concerns Assessment Noted Time PHQ-9 Depression Total Score: 6 08/20/2012 4:08 PM CDT documented as of this encounter
--- OUTSIDE RECORDS SUMMARY | 2022-01-10 09:01 | XMS_ITS | Encounter Summary ---
:1950 Author Organization [facility] Address [address] [place] [address] Care Team Providers Name Role Phone Unavailable Primary Care Provider Unavailable Reason for Visit Reason Comments Med Refill Encounter Details Date Type Department Care Team Description 02/28/2021 Refill [facility] [place] son, Alvarado Gilbert PAguilarA.-C. Med Refill [facility] [address] [place] [address] Building, [place] [address] [place] [address] [place] [address] [phone] Social History Tobacco Use Types Packs/Day Years Used Date Smoking Tobacco: Former Cigarettes 0 0 06/0 08/1965 - 04/01/1979 Smokeless Tobacco: Never Alcohol Use Standard Drinks/Week Comments Yes 10 (1 standard drink = 0.6 oz pure alcoh ol) Alcohol Habits Answer Date Recorded How often do you have a drink containing 4 or more times a w [place] 11/13/2021 alcohol? How many drinks containing alcohol [...] or relatives? How often do you attend latter-day or More than 4 times per year 11/13/2021 holiness services? Do you belong to any clubs or Yes 11/13/2021 organizations such as latter-day groups, unions, fraternal or athletic groups, or [...] place to sleep or slept in a longterm (including now)? Education Answer Date Recorded What is the highest level of school you have completed or 12 th grade 10/02/2020 the highest degree you have received? 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 - 03/01/2021 9:47 AM PRINT COLOR MATCHER I called patient and talked with her. She has plenty of Plavix at this time and did not request a refill. She also had this happen again 1month ago as well and she did not request refill at that time. She has been taking Plavix every day and knows to continue to do that for 6 months post PCI. She has plenty of plavix pills at this time and as far as she knows she still has adequate refills on them as well. We discussed that if for some reason she is running out of pills and only has a few left and can't get a refill through mail order, she will contact her PCP and get Plavix sent locally. She will continue to take plavix daily. I will refuse refill as not appropriate and patient does not need at this time. She will contact PCPif needs refill but she thinks she has enough to get her through 6 months. Alvarado Nguyen PA-C T COLOR MATCHER documented in this encounter Plan of Treatment Not on filedocumented as of this encounter Visit Diagnoses Not on filedocumented in this encounter Additional Health Concerns Assessment Noted Time PHQ-9 Depression Total Score: 6 08/20/2012 4:08 PM CDT documented as of this encounter
--- OUTSIDE RECORDS SUMMARY | 2022-01-10 09:01 | XMS_ITS | Encounter Summary ---
:1950 Author Organization 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 [facility] Procedures Echo Transthoracic (TTE) [address] [place], [place] [address] Referral ID Status Reason Start Date Expiration Date Visits Requ ested Visits Authorized [id number] Closed 11/07/2021 11/07/2022 1 1 Encounter Details Date Type Department Care Team Description 11/12/2021 Hospital Encounter Department of Venkata Mayen Dyspnea On Exertion; Cardiovascular Diseases Gus Rivera Chronic Diastolic (Congestive) Heart Jose trevizo (HCC); in [facility] pretty [address] Stenosis Mitral Not Rheumati c Acquired; [address] Regurgitation Mitral; [facility], Ischemic Heart Chronic Disease [phone] [place] [phone] Social History Tobacco Use Types Packs/Day Years Used Date Smoking Tobacco: Former Cigarettes 0 0 /0 08/1965 - 04/01/1979 Smokeless Tobacco: Never Alcohol Use Standard Drinks/Week Comments Yes 10 (1 standard drink = 0.6 oz pure alcoh ol) Alcohol Habits Answer Date Recorded How often do you have a drink containing 4 or more times a w [place] 11/13/2021 alcohol? How many drinks containing alcohol [...] or relatives? How often do you attend anabaptism or More than 4 times per year 11/13/2021 denominational services? Do you belong to any clubs or Yes 11/13/2021 organizations such as anabaptism groups, unions, fraternal or athletic groups, or [...] place to sleep or slept in a assisted (including now)? Education Answer Date Recorded What is the highest level of school you have completed or 12 th grade 10/02/2020 the highest degree you have received? 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 ezetimibe (ZETIA) 10 mg [...] Name Priority Date/Time Associated Diagnosis Comme nts (TTE) 2D ECHO Routine 11/12/2021 1:17 PM Dyspnea On Ex ertion Results for this DOPPLER COLOR CDT Chronic Diastolic procedure are in (Congestive) Heart the resul ts Failure (HCC) section. 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 Narrative 11/12/2021 3:06 PM CDT For [...] Date Last Indicated Resolved Time COVID19 Pending 11/12/2021 11/12/2021 11/12/2021 6:48 PM CDT Assessment Noted Time PHQ-9 Depression Total Score: 6 08/20/2012 4:08 PM CDT documented as of this encounter
--- OUTSIDE RECORDS SUMMARY | 2022-01-10 09:01 | XMS_ITS | Encounter Summary ---
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 How many drinks containing alcohol [...] or relatives? How often do you attend religious or More than 4 times per year 11/13/2021 shinto services? Do you belong to any clubs or Yes 11/13/2021 organizations such as religious groups, unions, fraternal or athletic groups, or [...] place to sleep or slept in a retirement (including now)? Education Answer Date Recorded What is the highest level of school you have completed or 12 th grade 10/02/2020 the highest degree you have received? 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
--- OUTSIDE RECORDS SUMMARY | 2022-01-10 09:01 | XMS_ITS | Encounter Summary ---
:1950 Author Organization [facility] Address [address] [place] [address] Care Team Providers Name Role Phone Unavailable Primary Care Provider Unavailable Reason for Referral Outpatient (Routine) - Closed Specialty Diagnoses / Procedures Referred By Contact Refer red To Contact Diagnoses Dyspnea On Exertion Ischemic Heart Chronic Disease Dyspnea Multifactorial Chronic Diastolic (Congestive) Heart Failure (HCC) Venkata Mayen M.D. [facility] Procedures Cardiopulmonary (VO2) Exercise Test [address] [place], [place] [phone] Referral ID Status Reason Start Date Expiration Date Visits Requ ested Visits Authorized [id number] Closed 04/23/2021 04/23/2022 1 1 OR TECHNICAL MANAGER Outpatient (Routine) - Closed Specialty Diagnoses / Procedures Referred By Contact Refer red To Contact Diagnoses Dyspnea On Exertion Ischemic Heart Chronic Disease Dyspnea Multifactorial Chronic Diastolic (Congestive) Heart Failure (HCC) Venkata Mayen M.D. [facility] Procedures Echo Stress [address] [place] [address] Referral ID Status Reason Start Date Expiration Date Visits Requ ested Visits Authorized [id number] Closed 04/10/2021 04/10/2022 1 1 OR TECHNICAL MANAGER Reason for Visit Outpatient (Routine) - Closed Specialty Diagnoses / Procedures Referred By Contact Refer red To Contact Diagnoses Dyspnea On Exertion Ischemic Heart Chronic Disease Dyspnea Multifactorial Chronic Diastolic (Congestive) Heart Failure (HCC) Venkata Mayen M.D. [facility] Procedures Echo Stress [address] [place], [place] [phone] Referral ID Status Reason Start Date Expiration Date Visits Requ ested Visits Authorized [id number] Closed 04/10/2021 04/10/2022 1 1 Encounter Details Date Type Department Care Team Description 05/09/2021 Hospital Encounter Department of Venkata Mayen Dyspnea On Exertion; Cardiovascular Diseases Gus Rivera Ischemic Heart Chronic Disease; in [facility] potash flaker [address] [facility] Dyspnea Multifactorial; [address] [place], [place] Chronic Diastolic (Congestiv e) Heart Failure ([place]CC) [place] [phone] Social History Tobacco Use Types Packs/Day Years Used Date Smoking Tobacco: Former Cigarettes 0 0 08/1965 - 04/01/1979 Smokeless Tobacco: Never Alcohol Use Standard Drinks/Week Comments Yes 10 (1 standard drink = 0.6 oz pure alcoh ol) Alcohol Habits Answer Date Recorded How often do you have a drink containing 4 or more times a w [place] 11/13/2021 alcohol? How many drinks containing alcohol [...] or relatives? How often do you attend pentecostal or More than 4 times per year 11/13/2021 advent services? 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 clopidogreL (PLAVIX) 75 Take 1 tablet (75 30 tablet 6 11/1605/17/2021 mg tablet mg total) by mouth daily. Take plavix 75 mg daily for 6 months pos PCI on 11/14/20. documented as of this encounter Plan of Treatment Not on filedocumented as of this encounter Procedures Procedure Name Priority Date/Time Associated Comments Diagnosis ECHO STRESS 2D AND Routine 05/09/2021 2:47 Dyspnea On Result s for this DOPPLER PM SENIOR TECHNICAL MANAGER Exertion procedure are in Ischemic Heart the results Chronic Disease section. Dyspnea Multifactorial Chronic Diastolic (Congestive) Heart Failure (HCC) CARDIOPULMONARY (VO2) Routine 05/09/2021 2:47 Dyspnea On Res ults for this EXERCISE TEST PM SENIOR TECHNICAL MANAGER Exertion procedure are in Ischemic Heart the results Chronic Disease section. Dyspnea Multifactorial Chronic Diastolic (Congestive) Heart Failure (HCC) documented in this encounter Results ECHO STRESS 2D AND DOPPLER (05/09/2021 2:47 PM SENIOR TECHNICAL MANAGER) [facility] Method Time Signature Ejection Fraction 59 MC CV EIMS LV Mass Index 93 MC CV EIMS LV End-Diastolic 47 MC CV EIMS Diameter LV End-Systolic 30 MC CV EIMS Diameter MV E Velocity 1.40 MC CV EIMS MV A Velocity 1.20 MC CV EIMS MV E/A 1.17 MC CV EIMS MV e' Velocity 0.09 MC CV EIMS Medial MV E/e' Medial 15.60 MC CV EIMS LV Interventricular 11 MC CV EIMS Septal Wall Thickness LV Posterior Wall 11 MC CV EIMS Thickness LV Relative Wall 47 MC CV EIMS Thickness TR Vmax 3.26 MC CV EIMS RA Pressure 5 MC CV EIMS RV Systolic Pressure 48 MC CV EIM S MV mean gradient 6 MC CV EIMS Anatomical Region Laterality Modality Echocardiography Specimen (Source) Anatomical Collection Method Collection Time Re ceived Time Location / / Volume Laterality 05/09/2021 1:34 PM SENIOR TECHNICAL MANAGER Impressions 05/09/2021 10:03 PM SENIOR TECHNICAL MANAGER consistent with abnormal lung aeration at rest and with exercise. 6. Increased color flow extent of mitral regurgitation with stress. 7. O2 saturation was 99% at rest and 94% with stress. 8. This test was focused on hemodynamic assessment of valvular heart disease. Recommend formal ischemia assessment if clinically indicated. 9. O2 uptake data detailed in the [facility] Medical Record (Cardiopulmonary (VO2) Exercise Test). Findings STRESS TEST:The patient exercised for 9: 40 min:sec on the Supine Bike protocol. The patient achieved a workload of 5.7 METS and 135% FAC. A peak heart rate of 141 BPM was achieved (96% age-predicted max imal HR). The test was terminated due to dyspnea and fatigue. Blood pressure at rest 144 mmHg /72 mmHg. Blood pressure with exercise 198 mmHg/72 mmHg. Normal blood pressure response to exercise. O2 sat at rest 99%, and with exercise 94%. The baseline ECG demonstrated sinus rhythm with non- specific ST abnormalities. The stress ECG was abnl/n on-diagnostic for ischemia. APC's and VPC's present at stress. Please see Nursing Notes for additional information. STRESS IMPRESSIONS:Hemodynamic supine bi ke performed to assess mitral stenosis and RVSP. REST IMPRESSIONS: LEFT VENTRICLE:Normal left ventricular c hamber size. Calculated 2-D linear left ventricular ejection fraction 59%. No regional wall motion abnormalities. Indeterminate left ventricular filling pressure. RIGHT VENTRICLE:Normal right ventricular chamber size. Normal right ventricular systolic function. Estimated right ventricular systolic pressure 48 mmHg (systolic blood pressure 144 mmHg). CARDIAC VALVES:Severely calcified mitral annulus. Moderately thickened mitral valve. Moderate mitral valve regurgitation. Mitral valve diastolic mean Doppler gradient 6 mmHg (heart rate 83 BPM). Mildly thickened tricuspid valve. Mild-moderate tricuspid valve regurgitation. OTHER ECHO FINDINGS:Normal inferior vena cava size with normal inspiratory collapse (>50%). No intracardiac mass or thrombus, but the left atrial appendage cannot be visualized adequately with transt horacic echo to exclude thrombus in this location. No ?? pericardial effusion. LUNG FINDINGS:Lung ultrasound performed. For the complete report, see the [facility] Documents. Narrative 05/09/2021 10:03 PM SENIOR TECHNICAL MANAGER For the complete report, see the [facility] Documents. Final Impressions 1. Hemodynamic bike stress echocardiogra m evaluation for mitral stenosis and pulmonary hypertension. 2. The patient achieved a workload of 5. 7 METS and 135% FAC , stopping due to severe dyspnea. 3. Mean mitral diastolic gradient was 6 mmHg at rest and 18 mmHg at peak stress. 4. Estimated right ventricular systolic pressure was 48 mmHg at rest and 78 mmHg with stress. 5. Procedure Note Nishant Crocker M.D., Ph.D. - 05/09/2021 For the complete report, see the [facility] Documents. Final Impressions 1. Hemodynamic bike stress echocardiogra m evaluation for mitral stenosis and pulmonary hypertension. 2. The patient achieved a workload of 5. 7 METS and 135% FAC , stopping due to severe dyspnea. 3. Mean mitral diastolic gradient was 6 mmHg at rest and 18 mmHg at peak stress. 4. Estimated right ventricular systolic pressure was 48 mmHg at rest and 78 mmHg with stress. 5. Findings consistent with abnormal [place] g aeration at rest and with exercise. 6. Increased color flow extent of mitral regurgitation with stress. 7. O2 saturation was 99% at rest and 94% with stress. 8. This test was focused on hemodynamic assessment of valvular heart disease. Recommend formal ischemia assessment if clinically indicated. 9. O2 uptake data detailed in the [facility] Medical Record (Cardiopulmonary (VO2) Exercise Test). Findings STRESS TEST:The patient exercised for 9: 40 min:sec on the Supine Bike protocol. The patient achieved a workload of 5.7 METS and 135% FAC. A peak heart rate of 141 BPM was achieved (96% age-predicted maximal HR). The test was terminated due to dyspnea and f atigue. Blood pressure at rest 144 mmHg/72 mmHg. Blood pressure with exercise 198 mmHg/72 mmHg. Normal blood pressure response to exercise. O2 sat at rest 99%, and with exercise 94%. The baseline ECG demonstrated sinus rhyt hm with non-specific ST abnormalities. The stress ECG was abnl/non-diagnostic for ischemia. APC's and VPC's present at stress. Please see Nursing Notes for additional information. STRESS IMPRESSIONS:Hemodynamic supine bi ke performed to assess mitral stenosis and RVSP. REST IMPRESSIONS: LEFT VENTRICLE:Normal left ventricular c hamber size. Calculated 2-D linear left ventricular ejection fraction 59%. No regional wall motion abnormalities. Indeterminate left ventricular filling pressure. RIGHT VENTRICLE:Normal right ventricular chamber size. Normal right ventricular systolic function. Estimated right ventricular systolic pressure 48 mmHg (systolic blood pressure 144 mmHg). CARDIAC VALVES:Severely calcified mitral annulus. Moderately thickened mitral valve. Moderate mitral valve regurgitation. Mitral valve diastolic mean Doppler gradient 6 mmHg (heart rate 83 BPM). Mildly thickened tricuspid valve. Mild-moderate tricuspid valve regurgitation. OTHER ECHO FINDINGS:Normal inferior vena cava size with normal inspiratory collapse (>50%). No intracardiac mass or thrombus, but the left atrial appendage cannot be visualized adequately with transthoracic echo to exclude thrombus in this location. No pe ricardial effusion. LUNG FINDINGS:Lung ultrasound performed. For the complete report, see the [facility] Documents. Venkata Mayen M.D. CV ECHO PROCEDURES CARDIOPULMONARY (VO2) EXERCISE TEST (05/09/2021 2:47 PM SENIOR TECHNICAL MANAGER) Specimen (Source) Anatomical Collection Method Collection Time Re ceived Time Location / / Volume Laterality 05/09/2021 12:44 PM SENIOR TECHNICAL MANAGER Narrative [facility] CV MERGE - 05/09/2021 3:23 PM SENIOR TECHNICAL MANAGER This result has an attachment that is no t available. See PDF For Result Procedure Note Dom Kee M.D., Ph.D. - 05/09/2021 See PDF For Result Venkata Mayen M.D. CV STRESS PROCEDURES Performing Organization Address City/State/ZIP Code Phon e Number [facility] CV MERGE CV MERGE NA documented in this encounter Visit Diagnoses Diagnosis Dyspnea On Exertion Ischemic Heart Chronic Disease Dyspnea Multifactorial Chronic Diastolic (Congestive) Heart Jose lure (HCC) documented in this encounter Additional Health Concerns Assessment Noted Time PHQ-9 Depression Total Score: 6 08/20/2012 4:08 PM CDT documented as of this encounter
--- OUTSIDE RECORDS SUMMARY | 2022-01-10 09:01 | XMS_ITS | Encounter Summary ---
:1950 Author Organization [facility] Address [address] [place] [address] Care Team Providers Name Role Phone Unavailable Primary Care Provider Unavailable Reason for Referral Outpatient (Routine) - Closed Specialty Diagnoses / Procedures Referred By Contact Refer red To Contact Diagnoses Bradycardia Venkata Mayen M.D. [facility] Procedures ECG Heart Rhythm Monitor (Holter) [address] [place] [phone] Referral ID Status Reason Start Date Expiration Date Visits Requ ested Visits Authorized [id number] Closed 01/09/2021 01/09/2022 1 1 Reason for Visit Outpatient (Routine) - Closed Specialty Diagnoses / Procedures Referred By Contact Refer red To Contact Diagnoses Bradycardia Venkata Mayen M.D. [facility] Procedures ECG Heart Rhythm Monitor (Holter) [address] [place] [phone] Referral ID Status Reason Start Date Expiration Date Visits Requ ested Visits Authorized [id number] Closed 01/09/2021 01/09/2022 1 1 Encounter Details Date Type Department Care Team Description 01/23/2021 Hospital Encounter Department of Venkata Mayen Brad ycardia Cardiovascular Diseases in [place], [place] [address] [facility] [address] [place] [phone] Social History Tobacco Use Types Packs/Day Years Used Date Smoking Tobacco: Former Cigarettes 0 0 /0 08/1965 - 04/01/1979 Smokeless Tobacco: Never Alcohol Use Standard Drinks/Week Comments Yes 10 (1 standard drink = 0.6 oz pure alcoh ol) Alcohol Habits Answer Date Recorded How often do you have a drink containing 4 or more times a w [place] 11/13/2021 alcohol? How many drinks containing alcohol [...] or relatives? How often do you attend restorationist or More than 4 times per year 11/13/2021 church services? Do you belong to any clubs or Yes 11/13/2021 organizations such as restorationist groups, unions, fraternal or athletic groups, or [...] place to sleep or slept in a prison (including now)? Education Answer Date Recorded What is the highest level of school you have completed or 12 th grade 10/02/2020 the highest degree you have received? 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 aspirin 81 mg chewable Chew 1 tablet (81 90 tablet 3 2020 tablet mg total) daily. calcium carbonate (CALCIUM Take 2 tablets by 0 500 ORAL) mouth daily. cholecalciferol (VITAMIN D3) Take 2,000 Units 0 2,000 Unit capsule by mouth daily. ezetimibe (ZETIA) 10 mg Take 10 mg by 0 9 tablet mouth at bedtime. miscellaneous medical supply CPAP machine for 0 0 12/20/2020 misc home use at pressure 5-16 cmw, nasal mask x1/3month with nasal pillows x 2/mo nitroglycerin (NITROSTAT) Place 0.4 mg 0 0.4 mg SL tablet under the tongue as needed. rosuvastatin (CRESTOR) 40 mg Take 1 tablet by 0 0 06/08/2012 tablet mouth at bedtime. sertraline (ZOLOFT) 100 mg Take 1 tablet by 0 tablet mouth at bedtime. clopidogreL (PLAVIX) 75 mg Take 1 tablet (75 30 tablet 6 05/17/2021 tablet mg total) by mouth daily. Take plavix 75 mg daily for 6 months pos PCI on 11/14/20. hydroCHLOROthiazide 1 tablet (25 mg 0 11/07/2020 05/09/2021 (HYDRODIURIL) 25 mg tablet total) daily. ramipriL (ALTACE) 5 mg Take 2 capsules 0 01/10/20 21 04/12/2021 capsule (10 mg total) by mouth daily. verapamil (VERELAN) 180 mg Take 1 capsule by 0 05/09/2021 24 hr capsule mouth at bedtime. documented as of this encounter Plan of Treatment Not on filedocumented as of this encounter Procedures Procedure Name Priority Date/Time Associated Diagnosis Comme [facility] HOLTER MONITOR - IN Routine 01/24/2021 5:15 PM Bradycardia Re sults for this CLINIC DIGITAL SALES EXECUTIVE CDT procedure are in the results section. documented in this encounter Results HOLTER MONITOR - IN CLINIC DIGITAL SALES EXECUTIVE (01/24/2021 5:15 PM CDT) [facility] Method Time Signature Min Heart Rate 49 bpm INFOBIONIC MOME Max Heart Rate 104 bpm INFOBIONIC MOME Mean Heart 70 bpm INFOBIONIC Rate MOME VE Total Beats 234 count INFOBIONIC MOME VE Percent less than percent INFOBIONIC Beats 1 MOME SVE Total 173 count INFOBIONIC Beats MOME SVE Percent less than percent INFOBIONIC Beats 1 MOME AF Count 0 count INFOBIONIC MOME AF Duration 0 duration INFOBIONIC MOME AF [place] 0 percent INFOBIONIC MOME Symptom Count 4 count INFOBIONIC MOME Specimen (Source) Anatomical Collection Method Collection Time Re ceived Time Location / / Volume Laterality 01/23/2021 12:40 PM CDT Narrative INFOBIONIC MOME - 01/26/2021 6:05 PM CDT 1. The basic rhythm was sinus. The total analyzed time was 23h 31m. The heart rate varied from 49 to 104 bpm. The average HR was 70 bpm. 2. Premature ventricular complexes were noted singly and fused. There were 234 PVCs recorded with a PVC burden of less than 1%. 3. Premature supraventricular complexes were noted singly and in pairs. There were three 3-4 beat atrial runs with a maximum rate of 133 bpm. There were 173 PACs recorded with a PAC burden of less than 1%. 4. A total of 4 symptomatic events were noted, which included shortness of breath, throbbing in ears and lightheadedness. The heart rate varied from 55 to 76 bpm. No ectopy was noted. Regional Transfer Liaison: Ama Moody/ Ramiro Rodriguez [facility] Procedure Note Moe Rocha M.D. - 01/26/2021Fo rmatting of this note might be different from the original. 1. The basic rhythm was sinus. The total analyzed time was 23h 31m. The heart rate varied from 49 to 104 bpm. The average HR was 70 bpm. 2. Premature ventricular complexes were noted singly and fused. There were 234 PVCs recorded with a PVC burden of less than 1%. 3. Premature supraventricular complexes were noted singly and in pairs. There were three 3-4 beat atrial runs with a maximum rate of 133 bpm. There were 173 PACs recorded with a PAC burden of less than 1%. 4. A total of 4 symptomatic events were noted, which included shortness of breath, throbbing in ears and lightheadedness. The heart rate varied from 55 to 76 bpm. No ectopy was noted. Regional Transfer Liaison: Ama Moody/ Ramiro Rodriguez [facility] J. Wells Askew M.D. CV CARDIAC SERVICES PROCEDUR ES Performing Organization Address City/State/ZIP Code Phon e Number INFOBIONIC MOME INFOBIONIC MOME NA documented in this encounter Visit Diagnoses Diagnosis Bradycardia documented in this encounter Additional Health Concerns Assessment Noted Time PHQ-9 Depression Total Score: 6 08/20/2012 4:08 PM CDT documented as of this encounter
--- OUTSIDE RECORDS SUMMARY | 2022-01-10 09:01 | XMS_ITS | Encounter Summary ---
:[address] [facility] Address [address] [place] [address] Care Team Providers Name Role Phone Unavailable Primary Care Provider Unavailable Reason for Visit Outpatient (Routine) - Closed Specialty Diagnoses / Procedures Referred By Contact Refer red To Contact Cardiovascular Disease Venkata Mayen [place] M.D. 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 [address] [facility] Chronic Diastolic (Congestive) Heart Jose santhosh ([facility]); [address] [place] [address] Hyperlipidemia On Treatment; [place] [phone] Morbid Obesity Body Mass Index 40.0-44.9 Adult ([facility]); [phone] 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 (Work) Social History Tobacco Use Types Packs/Day Years Used Date Smoking Tobacco: Former Cigarettes 0 0 06/0 08/1965 - 04/01/1979 Smokeless Tobacco: Never Alcohol Use Standard Drinks/Week Comments Yes 10 (1 standard drink = 0.6 oz pure alcoh ol) Alcohol Habits Answer Date Recorded How often do you have a drink containing 4 or more times a w [place] 11/13/2021 alcohol? How many drinks containing alcohol [...] or relatives? How often do you attend confucianist or More than 4 times per year 11/13/2021 latter-day services? Do you belong to any clubs or Yes 11/13/2021 organizations such as confucianist groups, unions, [employer] or athletic groups, or school groups? 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 - 05/09/2021 4:00 PM CST Interval history: Ivonne returns today following completion of the exercise cardiopulmonary hemodynamic cycle echocardiogram. Please see my 10 April 2021 note for additional details. She has been stable from a symptomatic perspective since our last visit. She has begun exercising on a more regular basis (up to five days per week) for approximately 1 hour in duration consisting of walking, cycling, cycle + arm ergometer, and resistance training/light weights. She does not report any increase in hercardiopulmonary symptoms and overall feels slightly better. Cardiac??medications??include hydrochlorothiazide??25??mg daily, ramipril 10 mg daily, verapamil 180mg daily, rosuvastatin 40 mg daily, ezetimibe 10 mg daily, aspirin 81 mg daily, clopidogrel 75 mg daily, and nitroglycerin sublingual as needed. At the conclusion of today's visit we are increasing verapamil to 240 mg daily, discontinuing hydrochlorothiazide, and beginning furosemide 20 mg daily. She is anticipating discontinuing clopidogrel at the end of this month (will have completed 6 months of therapy) and continue aspirin monotherapy. Cardiopulmonary exercise portion of the study notable for an exercise time of 9.7 minutes using a supine cycle 2 minute 25 W protocol with an estimated 135% functional aerobic capacity. Resting heart rate was 90 beats per minute increased to 141 beats per minute. Resting systolic blood pressure 144 mmHg and increased to 198 mm Hg. Peak VO2 was 12.6 (99% predicted) with a peak RER of 1.06. There was a abnormal O2 pulse rise with evidence of some cardiac impairment exercise. There were no complex arrhythmias. She reports developing severe dyspnea at peak exercise with a sensation of anxiety. The hemodynamic bike stress echocardiogram demonstrated a resting mean mitral diastolic gradient of 6 mm Hg increasing to 18 mm Hg at peak stress. Estimated right ventricular systolic pressure was 48 mm Hg at rest and increased to 78 mm Hg with stress. Findings were consistent with mildly abnormal lung aeration at rest which was more evident post-exercise. Mitral regurgitation was perhaps moderate at rest with an increase color flow extent during stress. 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 #9??Obstructive sleep apnea, treated with CPAP #10??Status post right breast lumpectomy and radiation for infiltrating ductal carcinoma We discussed the findings on today's exercise cardiopulmonary echocardiogram and the suspicion that her exertional dyspnea is predominantly due to the mitral valve disease with mitral inflow obstruction primarily related to bulky mitral annular calcification + secondarily, the associated mitral valvular disease (thickened and partially calcified mitral leaflets + thickened chordae + mitral regurgitation). The resting mitral valve diastolic mean Doppler gradient was higher today at 6 mm Hg compared to the echocardiogram in September 2020 (albeit at a higher heart rate today) and there was a significant increase with exercise to a maximum of 18 mm Hg consistent with hemodynamically significant obstruction + concomitant left ventricular diastolic dysfunction. Not surprisingly, there was evidence for increasing pulmonary hypertension during exercise, accentuation of of the lung ultrasound findings, and significant dyspnea at peak exercise. However, her exercise capacity appears relatively preserved on the basis of the estimated functional aerobic capacity within the limitations of cycle normative values. We reviewed potential options including further conservative therapy with ongoing modification of medications in effort to improve heart rate and blood pressure as well as volume status versus a more aggressive approach which would include a cardiac CT to further assess the mitral annular calcification and consultation with Interventional Cardiology and/or Cardiac Surgery with respect to mitral valvereplacement or transcatheter mitral valve in MAC replacement while taking into account the complexities of mitral valve intervention with severe mitral annular calcification. After careful consideration we have opted to proceed with a more conservative strategy and she will continue efforts at aerobic activity, improved conditioning, and weight loss. The verapamil will be increased to 240 mg daily and she will discontinue the hydrochlorothiazide as we are initiating furosemide 20 mg daily. I have asked her to closely monitor her heart rate blood pressure and contact me next week. Additionally she will contact her primary care team at home and arrange a basic metabolic panel in approximately 1 to 2 weeks to check her creatinine and potassium following the initiation of furosemide (recommend periodic monitoring of basic metabolic panel to determine need for potassium replacement). She will notify me if she has a change in symptoms, otherwise we may consider a repeat exercise treadmill cardiopulmonary echocardiogram in 6 to 12 months. Fortunately, she has not had any evidence for atrial fibrillation although has a severely enlarged left atrial size with a left atrial volume index of 50 ml/m^2. Patient Education: Ready to learn, no apparent learning barriers were identified; learning preferences include listening. Explained diagnosis and treatment plan; patient expressed understanding of the content. I believe all questions were answered. 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
--- OUTSIDE RECORDS SUMMARY | 2022-01-10 09:01 | XMS_ITS | Encounter Summary ---
:1950 Author Organization [facility] Address [address] [place] [address] Care Team Providers Name Role Phone Unavailable Primary Care Provider Unavailable Reason for Visit Reason Comments Med Refill Encounter Details Date Type Department Care Team Description 01/28/2021 Refill Department of Cardiovascular ChesterUmer, Med Refill Medicine in [place], [place] P.A.-C. [address] [place] [address] [place] [phone] [place] [address] [phone] (Wo rk) Social History Tobacco Use Types Packs/Day Years Used Date Smoking Tobacco: Former Cigarettes 0 0 /0 08/1965 - 04/01/1979 Smokeless Tobacco: Never Alcohol Use Standard Drinks/Week Comments Yes 10 (1 standard drink = 0.6 oz pure alcoh ol) Alcohol Habits Answer Date Recorded How often do you have a drink containing 4 or more times a w [place] 11/13/2021 alcohol? How many drinks containing alcohol [...] or relatives? How often do you attend christian or More than 4 times per year 11/13/2021 gnosticism services? Do you belong to any clubs or Yes 11/13/2021 organizations such as christian groups, unions, fraternal or athletic groups, or [...] place to sleep or slept in a [facility] (including now)? Education Answer Date Recorded What is the highest level of school you have completed or 12 th grade 10/02/2020 the highest degree you have received? 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 - 01/29/2021 11:32 AM CST Medication does not meet protocol for refill. I called and spoke with the patient who states she hasa 90 day supply with 1 refill for Plavix. She is only doing 6 months of Plavix therapy so she does not need Rx renewal, pharmacy should be able to use 1 refill. NE SCIENCE INSTRUCTOR Telephone Encounter - Cheyenne Lopez - 01/29/2021 10:53 AM CST Nurse review: Unable to pend medication to provider; Requested medication found on the A exclusionlist. Name of Medication: Clopidogril Strength: 75 mg Frequency: Take 1 tablet (75 mg total) by mouth daily. Take plavix 75 mg daily for 6 months pos PCI on 11/14/20., Starting Cortney 11/16/2020, Until Cortney 05/17/2021 Last Seen: Patient last seen in CV on 11/15/2020 in hospital. ??No follow-up in CV since hospitalization. [place] [facility]: [facility] - [place], [place] NE SCIENCE INSTRUCTOR documented in this encounter Plan of Treatment Not on filedocumented as of this encounter Visit Diagnoses Not on filedocumented in this encounter Additional Health Concerns Assessment Noted Time PHQ-9 Depression Total Score: 6 08/20/2012 4:08 PM CDT documented as of this encounter
--- OUTSIDE RECORDS SUMMARY | 2022-01-10 09:01 | XMS_ITS | Encounter Summary ---
:1950 Author Organization [facility] Address [address] [place] [address] Care Team Providers Name Role Phone Unavailable Primary Care Provider Unavailable Reason for Referral Outpatient (Routine) - Closed Specialty Diagnoses / Procedures Referred By Contact Refer red To Contact Cardiovascular Disease Venkata Mayen [place] M.D. [address] [place] [address] Referral ID Status Reason Start Date Expiration Date Visits Requ ested Visits Authorized Closed 10/17/2021 10/17/2022 1 1 utpatient (Routine) - Authorized Specialty Diagnoses / Procedures Referred By Contact Refer red To Contact Diagnoses Dyspnea On Exertion Ischemic Heart Chronic Disease Chronic Diastolic (Congestive) Heart Failure (HCC) 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 Venkata Mayen M.D. [facility] Procedures Echo Stress 200 [place] [address] Referral ID Status Reason Start Date Expiration Date Visits V isits Requested Authorized Authorized 10/17/2021 10/17/2022 1 1 Encounter Details Date Type Department Care Team Description 10/17/2021 Orders Only Department of Venkata Mayen Dyspnea On Exe rtion (Primary Dx); Cardiovascular Medicine Gus Rivera Ischemic Heart Chronic Disease; in [facility] sweet potato disintegrator [address] [facility] Chronic Diastolic (Congestive) Heart Jose santhosh (HCC); [address] [place], [place] Stenosis Mitral Not Rheumati [place] [address] [phone] Social History Tobacco Use Types Packs/Day Years Used Date Smoking Tobacco: Former Cigarettes 0 0 /0 08/1965 - 04/01/1979 Smokeless Tobacco: Never Alcohol Use Standard Drinks/Week Comments Yes 10 (1 standard drink = 0.6 oz pure alcoh ol) Alcohol Habits Answer Date Recorded How often do you have a drink containing 4 or more times a w [place] 11/13/2021 alcohol? How many drinks containing alcohol [...] More than 4 times per year 11/13/2021 adventism services? Do you belong to any clubs [...] place to sleep or slept in a long term (including now)? Education Answer Date Recorded What is the highest level of school you have completed or 12 th grade 10/02/2020 the highest degree you have received? 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 Plan of Treatment Scheduled Orders Name Type Priority Associated Order Schedule Diagnoses Comprehensive Metabolic Lab Routine Dyspnea On Exertion Expected: Panel Ischemic Heart 01/17/2022 Chronic Disease (Approximate), Chronic Diastolic Expires: (Congestive) Heart 3 Failure (HCC) 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 Echo Stress Echocardiography Routine Dyspnea On Exer tion Expected: Ischemic Heart 01/17/2022 Chronic Disease (Approximate), Chronic Diastolic Expires: (Congestive) Heart 3 Failure (HCC) 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 Scheduled Referrals Name Type Priority Associated Order Schedule Diagnoses Cardiovascular Disease Outpatient Referral Routine Expected: office visit (clinic) 2021 General (Approximate), Expires: 01/17/2023 documented as of this encounter Visit Diagnoses Diagnosis Dyspnea On Exertion - Primary Ischemic Heart Chronic Disease Chronic Diastolic (Congestive) Heart Jose lure (HCC) 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 documented in this encounter Additional Health Concerns Assessment Noted Time PHQ-9 Depression Total Score: 6 08/20/2012 4:08 PM CDT documented as of this encounter
--- OUTSIDE RECORDS SUMMARY | 2022-01-10 09:01 | XMS_ITS | Encounter Summary ---
:1950 Author Organization [facility] Address [address] [place] [address] Care Team Providers Name Role Phone Unavailable Primary Care Provider Unavailable Reason for Visit Reason Comments Appointment Encounter Details Date Type Department Care Team Description 10/30/2021 Clinical Communication Department of Venkata Mayenment Cardiovascular Medicine Gus Rivera in [facility] [address] [place] [address] [address] [place] [address] [phone] Social History Tobacco Use Types Packs/Day Years Used Date Smoking Tobacco: Former Cigarettes 0 0 06/0 08/1965 - 04/01/1979 Smokeless Tobacco: Never Alcohol Use Standard Drinks/Week Comments Yes 10 (1 standard drink = 0.6 oz pure alcoh ol) Alcohol Habits Answer Date Recorded How often do you have a drink containing 4 or more times a w [place] 11/13/2021 alcohol? How many drinks containing alcohol [...] or relatives? How often do you attend alevism or More than 4 times per year 11/13/2021 orthodox services? 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 - 11/05/2021 7:44 AM CDT Mrs Collins called this morning, she was in the hospital in [place] this past with cardiovascular issues. She states they recommended that she contact you as they feel her appointments may need to be moved up as they feel her valve will need to be replaced. Can you let me know if you would like to change her appt time or if you would like to add any further testing or consults. Thank you documented in this encounter Plan of Treatment Not on filedocumented as of this encounter Visit Diagnoses Not on filedocumented in this encounter Additional Health Concerns Infection Onset Date Last Indicated Resolved Time COVID19 Pending 11/12/2021 11/12/2021 11/12/2021 6:48 PM CDT Assessment Noted Time PHQ-9 Depression Total Score: 6 08/20/2012 4:08 PM CDT documented as of this encounter
--- OUTSIDE RECORDS SUMMARY | 2022-01-10 09:01 | XMS_ITS | Encounter Summary ---
:1950 Author Organization [facility] Address [address] [place] [address] Care Team Providers Name Role Phone Unavailable Primary Care Provider Unavailable Encounter Details Date Type Department Care Team Description 01/23/2021 Hospital Encounter Department of Laboratory Venkata Mayen, Bradycardia Medicine and Pathology, [address] [address] [place] [address] [phone] Social History Tobacco Use Types Packs/Day Years Used Date Smoking Tobacco: Former Cigarettes 0 0 06/0 08/1965 - 04/01/1979 Smokeless Tobacco: Never Alcohol Use Standard Drinks/Week Comments Yes 10 (1 standard drink = 0.6 oz pure alcoh ol) Alcohol Habits Answer Date Recorded How often do you have a drink containing 4 or more times a w [place] 11/13/2021 alcohol? How many drinks containing alcohol [...] or relatives? How often do you attend orthodox or More than 4 times per year 11/13/2021 evangelical services? Do you belong to any clubs or Yes 11/13/2021 organizations such as orthodox groups, unions, fraternal or athletic groups, or [...] place to sleep or slept in a snf (including now)? Education Answer Date Recorded What is the highest level of school you have completed or 12 th grade 10/02/2020 the highest degree you have received? 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 BASIC METABOLIC Routine 01/23/2021 1:13 PM Bradycardia Result s for this PANEL, S/P CDT procedure are i n the results section. documented in this encounter Results CBC without Differential (01/23/2021 1:13 PM CDT) P athologist Signature Hemoglobin 13.5 11.6 - 01/23/2021 DTL 15.0 g/dL 1:48 PM CDT Hematocrit 42.4 35.5 - 01/23/2021 DTL 44.9 % 1:48 PM CDT Erythrocytes 4.89 3.92 - 01/23/2021 DTL 5.13 1:48 PM CDT x10(12)/L MCV 86.7 78.2 - 01/23/2021 DTL 97.9 fL 1:48 PM CDT RBC Distrib Width 13.8 12.2 - 01/23/2021 DTL 16.1 % 1:48 PM CDT Platelet Count 185 157 - 371 01/23/2021 DTL x10(9)/L 1:48 PM CDT Leukocytes 8.7 3.4 - 9.6 01/23/2021 DTL x10(9)/L 1:48 PM CDT Specimen Anatomical Collection Method Collection Time Receive d Time (Source) Location / / Volume Laterality Blood (Blood, 01/23/2021 1:13 PM 01/24/20 1:41 Venous) CDT PM CDT Venkata Mayen M.D. LAB BLOOD ADD-ON Performing Organization Address City/State/ZIP Code Phon e Number [facility] - [address] [place], [place] [address] [facility] [place] [address] Laboratories-[facility] [address] (ABNORMAL) Basic Metabolic Panel (01/23/2021 1:13 PM CDT) P athologist Signature Potassium, S 4.6 3.6 - 5.2 01/23/2021 DTL mmol/L 3:02 PM CDT Sodium, S 138 135 - 145 01/23/2021 DTL mmol/L 3:02 PM CDT Chloride, S 97 (L) 98 - 107 01/23/2021 DTL mmol/L 3:02 PM CDT Bicarbonate, S 29 22 - 29 01/23/2021 DTL mmol/L 3:02 PM CDT Anion Gap 12 7 - 15 01/23/2021 DTL 3:02 PM CDT BUN (Blood Urea 19 6 - 21 01/23/2021 DTL Nitrogen), S mg/dL 3:02 PM CDT Creatinine 0.79 0.59 - 01/23/2021 DTL 1.04 mg/dL 3:02 PM CDT eGFR-Non 74 >=60 01/23/2021 DTL Black/ mL/min/BSA 3:02 PM CDT [place] Comment: ----ADDITIONAL INFORMATION---- Estimated GFR calculated using the 2009 CKD_EPI creatinine equation. eGFR-Black/ 86 >=60 mL/min/BSA 2020 3:02 PM CDT DTL Comment: ----ADDITIONAL INFORMATION---- Estimated GFR calculated using the 2009 CKD_EPI creatinine equation. Calcium, Total, S 9.6 8.8 - 10.2 mg/dL 01/23/2021 3:02 PM CDT DTL Glucose, S 94 70 - 140 mg/dL 01/23/2021 3:02 PM CDT D TL Specimen Anatomical Collection Method Collection Time Receive d Time (Source) Location / / Volume Laterality Blood (Blood, 01/23/2021 1:13 PM 01/24/20 2:32 Venous) CDT PM CDT Venkata Mayen M.D. LAB BLOOD ADD-ON Performing Organization Address City/State/[facility] Code Phon e Number [facility] - [address] [place], [place] [address] [facility] [place] [address] Laboratories-[facility] [address] [facility] documented in this encounter Visit Diagnoses Diagnosis Bradycardia documented in this encounter Additional Health Concerns Assessment Noted Time PHQ-9 Depression Total Score: 6 08/20/2012 4:08 PM CDT documented as of this encounter
--- OUTSIDE RECORDS SUMMARY | 2022-01-10 09:01 | XMS_ITS | Encounter Summary ---
:1950 Author Organization [facility] Address [address] [place] [address] Care Team Providers Name Role Phone Unavailable Primary Care Provider Unavailable Reason for Visit Reason Comments Triage Encounter Details Date Type Department Care Team Description 11/08/2021 Clinical Communication Department of Westley Glasgow Cardiovascular Medicine Kath Rawls R.N. in [facility] pelota maker [address] [facility] [address] [place] [phone] Social History Tobacco Use Types Packs/Day Years Used Date Smoking Tobacco: Former Cigarettes 0 0 0 08/1965 - 04/01/1979 Smokeless Tobacco: Never Alcohol Use Standard Drinks/Week Comments Yes 10 (1 standard drink = 0.6 oz pure alcoh ol) Alcohol Habits Answer Date Recorded How often do you have a drink containing 4 or more times a w [place] 11/13/2021 alcohol? How many drinks containing alcohol [...] More than 4 times per year 11/13/2021 sikh services? 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 - 11/08/2021 11:48 AM CDT Pre-appointment valve clinic triage/record review. Information collected has not been verified by the patient. Appointment triage team does not establish a relationship with the patient. For any questions, please contact patient's primary provider. INTERNAL REFERRING PROVIDER: Venkata Mayen M.D. CHIEF COMPLAINT/REASON FOR VISIT MAC with MS + MR with new symptoms; surgical versus interventional options Surgical risk discussed with Dr. Mayen. RECOMMENDATIONS TO APPOINTMENT OFFICE Regular Valve testing / Consult and CV surgeon visit; talked with Dr. Mayen, he will order the cardiac structural morphology CT to evaluate the mitral valve. documented in this encounter Plan of Treatment Not on filedocumented as of this encounter Visit Diagnoses Not on filedocumented in this encounter Additional Health Concerns Assessment Noted Time PHQ-9 Depression Total Score: 6 08/20/2012 4:08 PM CDT documented as of this encounter
--- OUTSIDE RECORDS SUMMARY | 2022-01-10 09:01 | XMS_ITS | Encounter Summary ---
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; [facility], in [place], [place] Regurgi tation Mitral; [place], [place] [address] Ischemic Heart Chronic Disease [address] [facility] [phone] [place], [place] (Work) [phone] Social History Tobacco Use Types Packs/Day Years Used Date Smoking Tobacco: Former Cigarettes 0 0 06/0 08/1965 - 04/01/1979 Smokeless Tobacco: Never Alcohol Use Standard Drinks/Week Comments Yes 10 (1 standard drink = 0.6 oz pure alcoh ol) Alcohol Habits Answer Date Recorded How often do you have a drink containing 4 or more times a w [employer] [place] 11/13/2021 alcohol? How many drinks containing alcohol [...] or relatives? How often do you attend mormon or More than 4 times per year 11/13/2021 restorationist services? 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 High intensity warfarin therapeutic rang e: 2.5 to 3.5 Specimen Anatomical Collection Method Collection Time Receive d Time (Source) Location / / Volume Laterality Blood (Blood, 11/12/2021 8:59 AM 11/13/19 9:25 Venous) CDT AM CDT Venkata Mayen M.D. LAB BLOOD ADD-ON Performing Organization Address City/[facility] Phon e Number [facility] - [address] S-TSH (Thyroid-Stimulating Hormone - Sensitive) (11/12/2021 8:59 AM CDT) athologist [facility] TSH, Sensitive 2.7 0.3 - 4.2 11/12/2021 DT mIU/L 10:16 AM CDT Specimen Anatomical Collection Method Collection Time Receive d Time (Source) Location / / Volume Laterality Blood (Blood, 11/12/2021 8:59 AM 11/13/19 9:46 Venous) CDT AM CDT Venkata Mayen M.D. LAB BLOOD ADD-ON Performing Organization Address City/[facility] Phon e Number [facility] - [address] CBC without Differential (11/12/2021 8:59 AM CDT) athologist Signature Hemoglobin 13.8 11.6 - 11/12/2021 DTL 15.0 g/dL 10:12 AM CDT Hematocrit 44.6 35.5 - 11/12/2021 DTL 44.9 % 10:12 AM CDT Erythrocytes 5.11 3.92 - 11/12/2021 DTL 5.13 10:12 AM CDT x10(12)/L MCV 87.3 78.2 - 11/12/2021 DTL 97.9 fL 10:12 AM CDT RBC Distrib Width 13.2 12.2 - 11/12/2021 DTL 16.1 % 10:12 AM CDT Platelet Count 192 157 - 371 11/12/2021 DTL x10(9)/L 10:12 AM CDT Leukocytes 7.2 3.4 - 9.6 11/12/2021 DTL x10(9)/L 10:12 AM CDT Specimen Anatomical Collection Method Collection Time Receive d Time (Source) Location / / Volume Laterality Blood (Blood, 11/12/2021 8:59 AM 11/13/19 9:24 Venous) CDT AM CDT Venkata Mayen M.D. LAB BLOOD ADD-ON Performing Organization Address City/State/ZIP Code Phon e Number [facility] - [address] [place] [address] [facility] [place] [address] [facility] 200 [facility] (ABNORMAL) Lipid Panel (11/12/2021 8:59 AM CDT) P athologist Signature Triglycerides 68 mg/dL 11/12/2021 DTL [...] CDT DTL Cholesterol, Non-HDL, Calculated 75 mg/dL 10:11 AM CDT DTL Comment: ----REFERENCE VALUE---- [...] Organization Address City/State/ZIP Code Phon e Number [facility] - [address] [place], [place] [address] [facility] [place] [address] [facility] [address] [facility] NT-Pro B-Type Natriuretic Peptide (BNP) (11/12/2021 8:59 AM CDT) P athologist Signature NT-Pro BNP 493 <=540 pg/mL 11/12/2021 DTL 10:16 AM CDT Comment: NT-proBNP values less than [...] Organization Address City/State/ZIP Code Phon e Number [facility] - 200 [place], [place] [address] [facility] [place] [place] [address] [facility] [address] [facility] Comprehensive Metabolic Panel (11/12/2021 8:59 AM CDT) P athologist Signature Potassium, S 4.7 3.6 - [...] 11/12/2021 DTL Black/ mL/min/BSA 10:11 AM CDT Singaporean Comment: ----ADDITIONAL INFORMATION---- Estimated GFR calculated using [...] Organization Address City/State/ZIP Code Phon e Number [facility] - 200 [place], [place] [address] [facility] [place] [address] [facility] [address] documented in this encounter Visit Diagnoses Diagnosis Dyspnea On Exertion Chronic Diastolic (Congestive) Heart Jose lure (HCC) 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
--- OUTSIDE RECORDS SUMMARY | 2022-01-10 09:01 | XMS_ITS | Encounter Summary ---
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 How many drinks containing alcohol [...] or relatives? How often do you attend zoroastrianism or More than 4 times per year 11/13/2021 methodist services? 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 Adult probe inserted without difficulty. LEFT VENTRICLE:Borderline [...] Agitated saline injection(s) performed during sedation. No eauey-vd-ffpq shunt at atrial level at rest or [...] Sedation Narrator or other pertinent record in [facility] for additional procedure and sedation [...] No left atrial appendage thrombus. 7. No ympdv-mp-hdrx shunt at atrial leve l at rest [...] No left atrial appendage thrombus. 7. No godtm-gf-bhos shunt at atrial leve l at rest [...] and the findings as documented in the shaker tender and also performed a pertinent examination includ [...] performed at the request of the primary pharmaceutical service representative. Adult probe inserted without difficulty. LEFT VENTRICLE:Borderline [...] Agitated saline injection(s) performed during sedation. No bjnlq-ah-ecsy shunt at atrial level at rest or [...] Sedation Narrator or other pertinent record in [facility] for additional procedure and sedation information. Physician signature for procedural medications and patient discharge when D C criteria met. For the complete report, see the Order-L evel Documents. Venkata Mayen M.D. CV ECHO PROCEDURES (TTE) 2D ECHO DOPPLER COLOR (11/12/2021 1:17 PM CDT) Analysis Performed At Patho logist Time Signature Ejection Fraction 65 [facility] CV [...] report, see the Order-L evel Documents. Narrative 11/12/2021 3:06 PM CDT For [...] Documents. Venkata Mayen M.D. CV ECHO PROCEDURES ECG 12 Lead (11/12/2021 10:11 AM CDT) P athologist Signature Ventricular Rate 79 BPM MUSE ECG/Min LA Interval 174 ms MUSE QRSD Interval 94 ms MUSE QT Interval 386 ms MUSE QTC Interval 442 ms MUSE P [place]idor 60 degrees MUSE R [place] 50 degrees MUSE T Wave [place] 38 degrees MUSE Specimen Anatomical Collection Method Collection Time Receive d Time (Source) Location / / Volume Laterality 11/12/2021 10:11 11/12/2021 AM CDT 10:24 AM CDT Impressions MUSE - 11/12/2021 10:24 AM CDT Normal sinus rhythm Nonspecific ST abnormality When compared with ECG of 10-APR-2021 14 :16, No significant change was found Reviewed by LOGAN Rosales Narrative This result has an attachment that is no t available. Procedure Note Surendra Yip M.D. - 11/12/2021Formatt ing of this note might be different from the original. IMPRESSION: Normal sinus rhythm Nonspecific ST abnormality When compared with ECG of 10-APR-2021 14 :16, No significant change was found Reviewed by LOGAN Rosales Venkata Mayen M.D. ECG ORDERABLES Performing Organization Address City/State/ZIP Code Phon e Number [facility] NA Prothrombin Time (PT) (11/12/2021 8:59 AM CDT) [...] Address City/State/ZIP Code Phon e Number [facility] - [address] [place], [place] [address] [facility] [place] [address] [facility] [address] S-TSH (Thyroid-Stimulating Hormone - Sensitive) (11/12/2021 8:59 AM CDT) P athologist Signature TSH, Sensitive 2.7 0.3 - 4.2 11/12/2021 DTL mIU/L 10:16 AM CDT Specimen Anatomical Collection Method Collection Time Receive d Time (Source) Location / / Volume Laterality Blood (Blood, 11/12/2021 8:59 AM 11/13/19 9:46 Venous) CDT AM CDT Venkata Mayen M.D. LAB BLOOD ADD-ON Performing Organization Address City/State/[facility] Phon e Number [facility] - [address] CBC without Differential (11/12/2021 8:59 AM CDT) P athologist Signature Hemoglobin 13.8 11.6 - 11/12/2021 [...] Address City/State/ZIP Code Phon e Number [facility] - 200 [place], [place] [address] [place] [address] (ABNORMAL) Lipid Panel (11/12/2021 8:59 AM CDT) [...] Address City/State/ZIP Code Phon e Number [facility] - [address] [place], [place] [address] [place] [address] [facility] [address] NT-Pro B-Type Natriuretic Peptide (BNP) (11/12/2021 8:59 AM CDT) athologist Signature NT-Pro BNP 493 <=540 pg/mL [...] Address City/State/ZIP Code Phon e Number [facility] - [address] [place] [address] [facility] [place] [address] [facility] 200 [facility] Comprehensive Metabolic Panel (11/12/2021 8:59 AM CDT) [...] 11/12/2021 DTL Black/ mL/min/BSA 10:11 AM CDT [place]ander Comment: ----ADDITIONAL INFORMATION---- Estimated GFR calculated using [...] Address City/State/ZIP Code Phon e Number [facility] - [address] [place], [place] [address] [facility] [place] [address] [facility] [address] documented in this encounter Visit Diagnoses Diagnosis Dyspnea On Exertion - Primary Chronic Diastolic (Congestive) Heart Jose lure (HCC) 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 Regurgitation Mitral Ischemic Heart Chronic Disease Dyspnea On Exertion Chronic Diastolic (Congestive) Heart Jose lure (HCC) 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
--- OUTSIDE RECORDS SUMMARY | 2022-01-10 09:01 | XMS_ITS | Encounter Summary ---
:1950 Author Organization [facility] Address [address] [place] [address] Care Team Providers Name Role Phone Unavailable Primary Care Provider Unavailable Reason for Referral Outpatient (Routine) - Closed Specialty Diagnoses / Procedures Referred By Contact Refer red To Contact Diagnoses Bradycardia Venkata Mayen M.D. [facility] Procedures ECG Heart Rhythm Monitor (Holter) [address] [place] [phone] Referral ID Status Reason Start Date Expiration Date Visits Requ ested Visits Authorized [id number] Closed 01/09/2021 01/09/2022 1 1 Encounter Details Date Type Department Care Team Description 01/09/2021 Orders Only Department of Venkata Mayen ([facility] Cardiovascular Medicine Nia Rivera Dx) in [facility] pretty [address] [facility] [address] [place] [phone] Social History Tobacco Use Types Packs/Day Years Used Date Smoking Tobacco: Former Cigarettes 0 0 06/0 08/1965 - 04/01/1979 Smokeless Tobacco: Never Alcohol Use Standard Drinks/Week Comments Yes 10 (1 standard drink = 0.6 oz pure alcoh ol) Alcohol Habits Answer Date Recorded How often do you have a drink containing 4 or more times a w [place] 11/13/2021 alcohol? How many drinks containing alcohol [...] More than 4 times per year 11/13/2021 confucianist services? 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 No ectopy was noted. Drug Safety Associate: Landry Moody [facility] Procedure Note Moe Rocha M.D. - 01/26/2021Fo [...] to 76 bpm. No ectopy was noted. Drug Safety Associate: Landry Moody Abr [facility] Venkata Mayen M.D. CV CARDIAC SERVICES PROCEDUR ES Performing Organization Address City/State/ZIP Code Phon e Number INFOBIONIC MOME INFOBIONIC MOME NA CBC without Differential (01/23/2021 1:13 PM CDT) [...] Organization Address City/State/ZIP Code Phon e Number [facility] - [address] [place], [place] [address] [facility] [place] [address] [facility] [address] [facility] (ABNORMAL) Basic Metabolic Panel (01/23/2021 1:13 PM [...] 01/23/2021 DTL Black/ mL/min/BSA 3:[address] [place] Comment: ----ADDITIONAL INFORMATION---- Estimated GFR calculated using [...] Organization Address City/State/ZIP Code Phon e Number [facility] - [facility] [address] [place], [place] [address] [facility] [place] [address] [facility] [address] [facility] documented in this encounter Visit Diagnoses Diagnosis Bradycardia - Primary Bradycardia documented in this encounter Additional Health Concerns Assessment Noted Time PHQ-9 Depression Total Score: 6 08/20/2012 4:08 PM CDT documented as of this encounter
--- OUTSIDE RECORDS SUMMARY | 2022-01-10 09:01 | XMS_ITS | Encounter Summary ---
:1950 Author Organization [facility] Address [address] [place] [address] Care Team Providers Name Role Phone Unavailable Primary Care Provider Unavailable Encounter Details Date Type Department Care Team Description 02/28/2021 Orders Only Department of Cardiovascular [place] [id number] [place] [address] [place], [place] [phone] [phone] Social History Tobacco Use Types Packs/Day Years [...] or relatives? How often do you attend restoration or More than 4 times per year 11/13/2021 adventism services? Do you belong to any clubs or Yes 11/13/2021 organizations such as restoration groups, unions, fraternal or athletic groups, or [...] place to sleep or slept in a halfway (including now)? Education Answer Date Recorded What is the highest level of school you have completed or 12 th grade 10/02/2020 the highest degree you have received? 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
--- OUTSIDE RECORDS SUMMARY | 2022-01-10 09:01 | XMS_ITS | Encounter Summary ---
:1950 Author Organization [facility] Address [address] [place] [address] Care Team Providers Name Role Phone Unavailable Primary Care Provider Unavailable Encounter Details Date Type Department Care Team Description 05/06/2021 Lab Department of [facility] Venkata Mayen Enc ounter For Preprocedural Laboratory Examination (COVID-19); Medicine, [facility] Tiffanie Contact With And (Suspected) Exposure To COVID-19 [facility], in [address] [phone] [place] [address] Social History Tobacco Use Types Packs/Day Years Used Date Smoking Tobacco: Former Cigarettes 0 0 06/0 08/1965 - 04/01/1979 Smokeless Tobacco: Never Alcohol Use Standard Drinks/Week Comments Yes 10 (1 standard drink = 0.6 oz pure alcoh ol) Alcohol Habits Answer Date Recorded How often do you have a drink containing 4 or more times a w [place] 11/13/2021 alcohol? How many drinks containing alcohol [...] or relatives? How often do you attend rastafari or More than 4 times per year 11/13/2021 latter-day services? 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 Contact With And (Suspected) Exposure To COVID-19 documented in this encounter Results SARS Coronavirus-2 RNA, V Asymptomatic (05/06/2021 10:09 AM CONFIGURATION ENGINEER) [facility] Method Time Signature SARS-CoV-2 Swab, 05/06/2021 MKTO Specimen Nasopharynx 11:24 PM Source CONFIGURATION ENGINEER SARS CoV-2 Undetected Undetected 05/06/2021 MKTO RNA, TMA 11:24 PM CONFIGURATION ENGINEER Comment: SARS-CoV-2 RNA absent. This result does not rule out COVID-19 in the patient, as the sensitivity of the test depends o n the timing of the specimen collection and the quality of the specim en. Result should be correlated with patient's history and clinical presentat ion. ----ADDITIONAL INFORMATION---- This molecular amplification test was pe rformed using the Aptima SARS-CoV-2 assay ([employer] on the [employer] Sys tem under emergency use authorization (EUA) by the U.S. Food and Drug Administ yamil. Fact sheets for this EUA assay can be fo und at the following links: For Healthcare Providers: https://www.fd a.gov/media/936559/download For Patients: https://www.fda.gov/media/ 181833/download Specimen Anatomical Collection Method Collection Time Receive d Time (Source) Location / / Volume Laterality Varies 05/06/2021 10:09 05/06/2021 4:32 (Nasopharynx) AM CONFIGURATION ENGINEER PM CONFIGURATION ENGINEER Venkata Mayen M.D. LAB MICROBIOLOGY - GENERAL O RDERABLES Performing Organization Address City/State/ZIP Code Phon e Number [facility]- [address] [place] [address] [place] [address] System in [address] documented in this encounter Visit Diagnoses Diagnosis Encounter For Preprocedural Laboratory E xamination (COVID-19) Contact With And (Suspected) Exposure To COVID-19 documented in this encounter Additional Health Concerns Infection Onset Date Last Indicated Resolved Time COVID19 Pending 05/05/2021 05/06/2021 05/06/2021 11:25 PM CONFIGURATION ENGINEER Assessment Noted Time PHQ-9 Depression Total Score: 6 08/20/2012 4:08 PM CDT documented as of this encounter
--- OUTSIDE RECORDS SUMMARY | 2022-01-10 09:01 | XMS_ITS | Encounter Summary ---
:1950 Author Organization [facility] Address [address] [place] [address] Care Team Providers Name Role Phone Unavailable Primary Care Provider Unavailable Reason for Referral Outpatient (Routine) - Closed Specialty Diagnoses / Procedures Referred By Contact Refer red To Contact Cardiovascular Disease Venkata Mayen [place] M.D. [address] [place] [phone] Referral ID Status Reason Start Date Expiration Date Visits Requ ested Visits Authorized [id number] Closed 04/10/2021 04/10/2022 1 1 Scheduling Instructions After stress test utpatient (Routine) - Closed Specialty Diagnoses / Procedures Referred By Contact Refer red To Contact Diagnoses Dyspnea On Exertion Ischemic Heart Chronic Disease Dyspnea Multifactorial Chronic Diastolic (Congestive) Heart Failure (HCC) Venkata Mayen M.D. [facility] Procedures Echo Stress [address] [place] [phone] Referral ID Status Reason Start Date Expiration Date Visits Requ ested Visits Authorized [id number] Closed 04/10/2021 04/10/2022 1 1 ALOMETRIC ANALYST Reason for Visit Outpatient (Routine) - Closed Specialty Diagnoses / Procedures Referred By Contact Refer red To Contact Cardiovascular Disease Venkata Mayen [place] M.D. 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 [address] Dyspnea Multifactorial; [address] [place], [place] Chronic Diastolic (Congestiv e) Heart Failure (HCC); [place] [phone] Hyperlipidemia On Treatment; [phone] Impaired Fastin g Glucose; (Work) Morbid Obesity Body Mass Index 40.0-44.9 Adult (HCC) Social History Tobacco Use Types Packs/Day Years Used Date Smoking Tobacco: Former Cigarettes 0 0 /0 08/1965 - 04/01/1979 Smokeless Tobacco: Never Tobacco Cessation: Counseling Given: No Alcohol Use Standard Drinks/Week Comments Yes 10 (1 standard drink = 0.6 oz pure alcoh ol) Alcohol Habits Answer Date Recorded How often do you have a drink containing 4 or more times a w [place] 11/13/2021 alcohol? How many drinks containing alcohol [...] or relatives? How often do you attend mandaen or More than 4 times per year 11/13/2021 mandaen services? 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 - 04/10/2021 3:00 PM CST SUBJECTIVE HISTORY OF PRESENT ILLNESS Ivonne Collins is a 71 y.o. female who returns to [facility] Cardiovascular Medicine for follow-up after undergoing coronary angiography with right coronary artery revascularization (4 x 24 mm and 3.5x 38 mm Synergy-XD stents) on 14 November 2020 in the context of exertional dyspnea with chronic ischemic heart disease and a abnormal dobutamine stress echocardiogram. She has been participating in cardiac rehabilitation (2 to 3 times per week) and has completed approximately 34 sessions. Overall she suspects that her functional capacity has improved and generally she feels better but has continued to experience exertional dyspnea. She has not appreciated a substanti al improvement in her symptoms of exertional dyspnea following coronary artery revascularization. Her exertional symptomatology has not worsened and she denies dyspnea at rest, orthopnea, paroxysmal nocturnal dyspnea, new peripheral edema, lightheadedness, or syncope. No definitive angina nor anginal equivalent with the exception of dyspnea. No worsening of cardiopulmonary symptoms related to changesin her medical regimen (recall hydrochlorothiazide dose reduction in September 2020 related to addition of isosorbide mononitrate as well as discontinuation of metoprolol in December 2020 due to symptomatic bradycardia). Home records today demonstrates systolic blood pressure ranging from 110 to 167 mm Hg with resting heart rates generally 65 84 beats per minute. Documentation from cardiac rehabilitation with resting systolic blood pressure range 110 to 154 mm Hg with an average of 133 mm Hg; exercise systolic blood pressure range 134 to 180 mm Hg with an average of 158 mm Hg; recovery systolic blood pressure range 112 to 142 mm Hg with an average of 126 mm Hg. Average exercise heart rate 122 beats per minute. Cardiac??medications??include hydrochlorothiazide 25 mg daily, ramipril 10 mg daily, verapamil 180 mg daily, rosuvastatin 40 mg daily, ezetimibe 10 mg daily, aspirin 81 mg daily, clopidogrel 75 mg daily, and nitroglycerin sublingual as needed. REVIEW OF SYSTEMS REVIEW OF SYSTEMS The following portions of the patient's history were reviewed: allergies, current medications, family history, medical history, social history, surgical history and problem list. OBJECTIVE BP 122/65 (BP Location: Right arm, Patient Position: Sitting, Cuff Size: Regular) Pulse 85 Ht 158 cm Wt 103 kg BMI 41.26 kg/m?? PHYSICAL EXAMINATION General: Increased body habitus. Well groomed. No distress. Psychiatric: Normal mood and affect. Alert and oriented. Head: Normocephalic, atraumatic. Eyes: No xanthelasma or conjunctivitis. Neck: Jugular venous pressure estimated at 10 cm water. Carotid upstroke is preserved. No carotid bruit. No subclavian bruit. Heart: Apical impulse is not displaced nor sustained. No ventricular lift. Normal first and second heart sound. No S3 or S4. Rhythm is regular. No systolic murmur. No diastolic inflow rumble or murmur.No systolic click. No pericardial rub. Lungs: Normal respiratory effort and air movement. Clear to auscultation bilaterally. No crackles, rhonchi, or wheezing. Abdomen: Positive bowel sounds. Soft and nontender. No rebound or guarding. Difficult to accurately palpate liver and spleen size. No masses identified. No ascites detected. Enlargement of the abdominal aorta not detected by palpation. No abdominal bruits. Extremities: No clubbing or cyanosis. Increased lower extremity size with mild asymmetry (right >left); patient reports longstanding for several years. Lipedema. No pitting edema. No femoral bruit. Neurologic: No focal deficits appreciated on limited examination. Gait: No significant gait instability observed. Skin: No stasis dermatitis or ulceration identified in the visualized areas. DIAGNOSTICS I have reviewed the patient's current laboratory, imaging, and other diagnostic studies. Laboratory with normal complete blood count differential. Normal sodium and potassium with creatinine 0.75 mg/dL. Glucose 105 mg/dL. Total cholesterol 129, HDL 43, LDL 61, triglycerides 123 mg/dL. Electrocardiogram with sinus rhythm at 90 beats per minute with nonspecific ST abnormality; no significant interval change compared to prior tracing. ASSESSMENT / PLAN #1??Persistent exertional dyspnea #2??Multivessel coronary artery disease status post multivessel percutaneous coronary artery revascularization #3??Right coronary artery rotational atherectomy + stent revascularization (October 2020) #4??Trivial aortic valve stenosis??+??bulky mitral annular calcification with mild mitral stenosis??+??regurgitation #5??Systemic hypertension #6??Hyperlipidemia with elevated lipoprotein (a) #7??Elevated fasting glucose with normal hemoglobin A1c #8??Obesity class 3??(BMI??>40??kg/m??)??with metabolic syndrome?? #9??Obstructive sleep apnea, treated with CPAP #10??Status post right breast lumpectomy and radiation for infiltrating ductal carcinoma Unfortunately she has continued to experience exertional dyspnea despite right coronary artery drug-eluting stent revascularization and we discussed alternate cardiovascular mechanisms of exertional dyspnea including left ventricular diastolic dysfunction + accentuation of mitral inflow obstruction related to severely calcified mitral annulus with concomitant mild mitral valvular stenosis in additionto suspected multifactorial components including increased body mass index. There have been several changes to her cardiac medications over the past six months including discontinuation of metoprolol tartrate due to bradycardia and a dose reduction and hydrochlorothiazide. Despite these changes, she has not appreciated a increase in exertional dyspnea in the context of perhaps a higher resting heart rate and/or change in volume status which is not appreciable on physical examination today. After further discussion we have opted to proceed with a exercise hemodynamic echocardiogram + VO2 with a focus on the mitral valve diastolic mean Doppler gradient and estimated right ventricular systolic pressure with exercise (secondarily, global + regional left ventricular systolic function can be assessed in early recovery). I did not make any changes to her cardiac medication regimen today. We discussed the planned discontinuation of clopidogrel in April 2021 as she will be completing a six month course; we will then plan to transition to anti-platelet monotherapy. A N terminal proBNP was requested as an add on to stored serum. Patient Education: Ready to learn, no apparent learning barriers were identified; learning preferences include listening. Explained diagnosis and treatment plan; patient expressed understanding of the content. I believe all questions were answered. ALOMETRIC ANALYST documented in this encounter Plan of Treatment Scheduled Referrals Name Type Priority Associated Order Schedule Diagnoses Cardiovascular Disease Outpatient Referral Routine Expected: office visit (clinic) 2021, Expires: 07/09/2022 documented as of this encounter Procedures Procedure Name Priority Date/Time Associated Comments Diagnosis NT-PRO B-TYPE Routine 04/10/2021 1:35 PM Dyspnea On Ex ertion Results for this NATRIURETIC PEPTIDE CEPHALOMETRIC ANALYST Ischemic Heart proced ure are in (BNP), S Chronic Disease the results Dyspnea section. Multifactorial Chronic Diastolic (Congestive) Heart Failure (HCC) documented in this encounter Results ECHO STRESS 2D AND DOPPLER (05/09/2021 2:47 PM CEPHALOMETRIC ANALYST) [facility] gist Method Time Signature Ejection Fraction 59 MC [...] / / Volume Laterality 05/09/2021 1:34 PM CEPHALOMETRIC ANALYST Impressions 05/09/2021 10:03 PM CEPHALOMETRIC ANALYST consistent with abnormal lung aeration at rest and with exercise. 6. Increased color flow extent of mitral regurgitation with stress. 7. O2 saturation was 99% at rest and 94% with stress. 8. This test was focused on hemodynamic assessment of valvular heart disease. Recommend formal ischemia assessment if clinically indicated. 9. O2 uptake data detailed in the [facility] Medical Record (Cardiopulmonary (VO2) Exercise Test). [...] report, see the Order-L evel Documents. Narrative 05/09/2021 10:03 PM CEPHALOMETRIC ANALYST For the complete report, see the Order-Level [...] the Order-L evel Documents. Final Impressions 1. Hemodynamic bike stress [...] 9. O2 uptake data detailed in the [facility] Medical Record (Cardiopulmonary (VO2) Exercise Test). [...] complete report, see the Order-L evel Documents. Authorizing Provider Result Kike Mayen M.D. CV ECHO PROCEDURES (ABNORMAL) NT-Pro B-Type Natriuretic Peptide (BNP) (04/10/2021 1:35 PM CEPHALOMETRIC ANALYST) P athologist Signature NT-Pro BNP 257 (H) <=218 pg/mL 04/10/2021 DTL 4:57 PM CEPHALOMETRIC ANALYST Comment: NT-proBNP values less than 300 pg/mL hav e a 99% negative predictive value for excluding acute congestive heart [place]. A cutoff of 1200 pg/mL for patients with an eGFR<60 yields a diagno stic sensitivity and specificity of 89% and 72% for acute congestive heart f ailure. ??A diagnostic NT-proBNP cutoff of 900 pg/mL has been suggested i n adults 50-75 years of age in the absence of renal failure. Specimen Anatomical Collection Method Collection Time Receive d Time (Source) Location / / Volume Laterality Blood (Blood, 04/10/2021 1:35 PM 04/10/19 4:11 Venous) CEPHALOMETRIC ANALYST PM CEPHALOMETRIC ANALYST Authorizing Provider Result Kike Mayen M.D. LAB BLOOD ADD-ON Performing Organization Address City/State/ZIP Code Phon e Number [facility] - [address] [place], [place] [address] [facility] [place] [address] Laboratories-[facility] [address] documented in this encounter Visit Diagnoses Diagnosis Dyspnea On Exertion - Primary Ischemic Heart Chronic Disease Dyspnea Multifactorial Chronic Diastolic (Congestive) Heart [place] (HCC) Hyperlipidemia On Treatment Impaired Fasting Glucose Morbid Obesity Body Mass Index 40.0-44.9 Adult (HCC) Dyspnea On Exertion Ischemic Heart Chronic Disease Dyspnea Multifactorial Chronic Diastolic (Congestive) Heart [place] (HCC) documented in this encounter Additional Health Concerns Assessment Noted Time PHQ-9 Depression Total Score: 6 08/20/2012 4:08 PM CDT documented as of this encounter
--- OUTSIDE RECORDS SUMMARY | 2022-01-10 09:01 | XMS_ITS | Encounter Summary ---
:1950 Author Organization [facility] Address [address] [place] [address] Care Team Providers Name Role Phone Unavailable Primary Care Provider Unavailable Encounter Details Date Type Department Care Team Description 04/10/2021 Hospital Encounter Department of Venkata Mayen Ischemic Heart Laboratory Medicine Tiffanie Rivera Chronic Disease and Pathology, [address] [place] [address] in [place], [place] [address] [place] [address] [place], [place] (Work) [phone] Social History Tobacco Use Types Packs/Day Years Used Date Smoking Tobacco: Former Cigarettes 0 0 06/0 08/1965 - 04/01/1979 Smokeless Tobacco: Never Alcohol Use Standard Drinks/Week Comments Yes 10 (1 standard drink = 0.6 oz pure alcoh ol) Alcohol Habits Answer Date Recorded How often do you have a drink containing 4 or more times a w [place] 11/13/2021 alcohol? How many drinks containing alcohol [...] or relatives? How often do you attend oriental orthodox or More than 4 times per year 11/13/2021 church services? 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 CBC WITH DIFFERENTIAL, Routine 04/10/2021 1:39 PM Ischemic Hea rt Results for this B PAINT STRIPING MACHINE OPERATOR Chronic Disease procedure ar e in the results section. COMPREHENSIVE Routine 04/10/2021 1:39 PM Ischemic Heart Result s for this METABOLIC PANEL, S/P PAINT STRIPING MACHINE OPERATOR Chronic Disease proc edure are in the results section. documented in this encounter Results (ABNORMAL) Lipid Panel (04/10/2021 1:40 PM PAINT STRIPING MACHINE OPERATOR) P athologist Signature Cholesterol, 129 mg/dL 04/10/2021 DTL Total 2:33 PM PAINT STRIPING MACHINE OPERATOR Comment: ----REFERENCE VALUE---- Desirable: < 200 Borderline high: 200 - 239 High: > or = 240 Triglycerides 123 mg/dL 04/10/2021 2:33 PM PAINT STRIPING MACHINE OPERATOR DTL Comment: ----REFERENCE VALUE---- Normal: <150 Borderline high: 150-199 High: 200-499 Very high: > or =500 Cholesterol, HDL, S 43 (L) >=50 mg/dL 04/10/2021 2:33 PM PAINT STRIPING MACHINE OPERATOR DTL Calculated LDL 61 mg/dL 04/10/2021 2:33 PM PAINT STRIPING MACHINE OPERATOR DT L Comment: ----REFERENCE VALUE---- Desirable: <100 mg/dL Above Desirable: 100-129 mg/dL Borderline High: 130-159 mg/dL High: 160-189 mg/dL Very High: >=190 mg/dL Cholesterol, Non-HDL, Calculated 86 mg/dL 022 2:33 PM PAINT STRIPING MACHINE OPERATOR DTL Comment: ----REFERENCE VALUE---- Desirable: <130 Above Desirable: 130-159 Borderline high: 160-189 High: 190-219 Very high: > or =220 Specimen Anatomical Collection Method Collection Time Receive d Time (Source) Location / / Volume Laterality Blood (Blood, 04/10/2021 1:40 PM 04/10/19 22 2:15 Venous) PAINT STRIPING MACHINE OPERATOR PM PAINT STRIPING MACHINE OPERATOR Venkata Mayen M.D. LAB BLOOD ADD-ON Performing Organization Address City/State/ZIP Code Phon e Number [facility] - 200 [place], [place] [address] [facility] [place] [address] [facility] [address] [facility] CBC with Differential, Blood (04/10/2021 1:39 PM PAINT STRIPING MACHINE OPERATOR) athologist Signature Hemoglobin 13.7 11.6 - 04/10/2021 DTL 15.0 g/dL 2:10 PM PAINT STRIPING MACHINE OPERATOR Hematocrit 42.2 35.5 - 04/10/2021 DTL 44.9 % 2:10 PM PAINT STRIPING MACHINE OPERATOR Erythrocytes 4.81 3.92 - 04/10/2021 DTL 5.13 2:10 PM PAINT STRIPING MACHINE OPERATOR x10(12)/L MCV 87.7 78.2 - 04/10/2021 DTL 97.9 fL 2:10 PM PAINT STRIPING MACHINE OPERATOR RBC Distrib Width 13.5 12.2 - 04/10/2021 DTL 16.1 % 2:10 PM PAINT STRIPING MACHINE OPERATOR Platelet Count 169 157 - 371 04/10/2021 DTL x10(9)/L 2:10 PM PAINT STRIPING MACHINE OPERATOR Leukocytes 7.9 3.4 - 9.6 04/10/2021 DTL x10(9)/L 2:10 PM PAINT STRIPING MACHINE OPERATOR Neutrophils 5.33 1.56 - 04/10/2021 DTL 6.45 2:10 PM PAINT STRIPING MACHINE OPERATOR x10(9)/L Lymphocytes 2.03 0.95 - 04/10/2021 DTL 3.07 2:10 PM PAINT STRIPING MACHINE OPERATOR x10(9)/L Monocytes 0.43 0.26 - 04/10/2021 DTL 0.81 2:10 PM PAINT STRIPING MACHINE OPERATOR x10(9)/L Eosinophils 0.08 0.03 - 04/10/2021 DTL 0.48 2:10 PM PAINT STRIPING MACHINE OPERATOR x10(9)/L Basophils 0.03 0.01 - 04/10/2021 DTL 0.08 2:10 PM PAINT STRIPING MACHINE OPERATOR x10(9)/L Specimen Anatomical Collection Method Collection Time Receive d Time (Source) Location / / Volume Laterality Blood (Blood, 04/10/2021 1:39 PM 04/10/19 2:05 Venous) PAINT STRIPING MACHINE OPERATOR PM PAINT STRIPING MACHINE OPERATOR Authorizing Provider Result Kike Mayen M.D. LAB BLOOD ADD-ON Performing Organization Address City/State/ZIP Code Phon e Number [facility] - [address] [place], [place] [address] [facility] [place] [address] [facility] [address] (ABNORMAL) Comprehensive Metabolic Panel (04/10/2021 1:39 PM PAINT STRIPING MACHINE OPERATOR) P athologist Signature Potassium, S 4.1 3.6 - 5.2 04/10/2021 DTL mmol/L 2:31 PM PAINT STRIPING MACHINE OPERATOR Sodium, S 139 135 - 145 04/10/2021 DTL mmol/L 2:31 PM PAINT STRIPING MACHINE OPERATOR Chloride, S 99 98 - 107 04/10/2021 DTL mmol/L 2:31 PM PAINT STRIPING MACHINE OPERATOR Bicarbonate, S 31 (H) 22 - 29 04/10/2021 DTL mmol/L 2:31 PM PAINT STRIPING MACHINE OPERATOR Anion Gap 9 7 - 15 04/10/2021 DTL 2:31 PM PAINT STRIPING MACHINE OPERATOR BUN (Blood Urea 17 6 - 21 04/10/2021 DTL Nitrogen), S mg/dL 2:31 PM PAINT STRIPING MACHINE OPERATOR Creatinine 0.75 0.59 - 04/10/2021 DTL 1.04 mg/dL 2:31 PM PAINT STRIPING MACHINE OPERATOR eGFR-Non 79 >=60 04/10/2021 DTL Black/ mL/min/BSA 2:31 PM PAINT STRIPING MACHINE OPERATOR [place] Comment: ----ADDITIONAL INFORMATION---- Estimated GFR calculated using the 2009 CKD_EPI creatinine equation. eGFR-Black/ >90 >=60 mL/min/BSA 2021 2:31 PM PAINT STRIPING MACHINE OPERATOR DTL Comment: ----ADDITIONAL INFORMATION---- Estimated GFR calculated using the 2009 CKD_EPI creatinine equation. Calcium, Total, S 9.6 8.8 - 10.2 mg/dL 04/10/2021 2:31 PM PAINT STRIPING MACHINE OPERATOR DTL Glucose, S 105 70 - 140 mg/dL 04/10/2021 2:31 PM PAINT STRIPING MACHINE OPERATOR D TL Protein, Total, S 6.4 6.3 - 7.9 g/dL 04/10/2021 2:31 P M PAINT STRIPING MACHINE OPERATOR DTL Albumin, S 4.6 3.5 - 5.0 g/dL 04/10/2021 2:31 PM PAINT STRIPING MACHINE OPERATOR D TL Aspartate Aminotransferase (AST), 24 8 - 43 U/L 04/10 2:31 PM PAINT STRIPING MACHINE OPERATOR DTL S Alkaline Phosphatase, S 59 35 - 104 U/L 04/10/2021 2: 31 PM PAINT STRIPING MACHINE OPERATOR DTL Alanine Aminotransferase (ALT), S 34 7 - 45 U/L 04/10 2:31 PM PAINT STRIPING MACHINE OPERATOR DTL Bilirubin, Total, S 0.6 <=1.2 mg/dL 04/10/2021 2:31 PM PAINT STRIPING MACHINE OPERATOR DTL Specimen Anatomical Collection Method Collection Time Receive d Time (Source) Location / / Volume Laterality Blood (Blood, 04/10/2021 1:39 PM 04/10/19 2:15 Venous) PAINT STRIPING MACHINE OPERATOR PM PAINT STRIPING MACHINE OPERATOR Venkata Mayen M.D. LAB BLOOD ADD-ON Performing Organization Address City/State/ZIP Code Phon e Number [facility] - [address] [place], [place] [address] [facility] [place] [address] [facility] [address] documented in this encounter Visit Diagnoses Diagnosis Ischemic Heart Chronic Disease documented in this encounter Additional Health Concerns Assessment Noted Time PHQ-9 Depression Total Score: 6 08/20/2012 4:08 PM CDT documented as of this encounter
--- OUTSIDE RECORDS SUMMARY | 2022-01-10 09:01 | XMS_ITS | Encounter Summary ---
:1950 Author Organization [facility] Address [address] [place] [address] Care Team Providers Name Role Phone Unavailable Primary Care Provider Unavailable Encounter Details Date Type Department Care Team Description 01/09/2021 Documentation Department of Cardiovascular Venkata Mayen, Medicine in [address] [place] [phone] (Wo rk) Social History Tobacco Use Types Packs/Day Years Used Date Smoking Tobacco: Former Cigarettes 0 0 0 08/1965 - 04/01/1979 Smokeless Tobacco: Never Alcohol Use Standard Drinks/Week Comments Yes 10 (1 standard drink = 0.6 oz pure alcoh ol) Alcohol Habits Answer Date Recorded How often do you have a drink containing 4 or more times a w [place] 11/13/2021 alcohol? How many drinks containing alcohol [...] or relatives? How often do you attend scientologist or More than 4 times per year 11/13/2021 zoroastrianism services? 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 - 01/09/2021 2:24 PM CDT Telephone encounter: I spoke with Ivonne regarding her recent symptoms of modest lightheadedness andforceful heartbeats with the recognition of bradycardia (heart rates approximately 40 beats per minute). She was evaluated locally and her metoprolol tartrate 25 mg twice daily was discontinued; however, she has continued verapamil 180 mg daily. No further symptoms and her heart rate has generally been 60 beats per minute or higher at rest. She has noted that her blood pressure is higher (SBP 140+ mmHg) and as result we will increase the ramipril to 10 mg daily. Arrangements will be made for repeatbasic metabolic panel in one week in addition to a 24 hour Holter monitor. Generally I prefer metoprolol over verapamil; however, will continue current regimen and if we have challenges with blood pressure control then additional changes can be entertained including resuming the metoprolol and substituting amlodipine for verapamil. Addendum (27 January 2021): Laboratory work performed earlier this week was not unremarkable with a normal complete blood count, normal sodium and potassium, and creatinine 0.79 mg/dL. Holter monitor demonstrating underlying rhythm of sinus with a heart rate 49-104 beats per minute with an average of 70 beats per minute. Two hundred thirty-four PVCs and 173 PACs with three 3 to 4 beat atrial runs with a maximal rate of 133 beats per minute. No additional changes made to medication regimen. documented in this encounter Plan of Treatment Not on filedocumented as of this encounter Visit Diagnoses Not on filedocumented in this encounter Additional Health Concerns Assessment Noted Time PHQ-9 Depression Total Score: 6 08/20/2012 4:08 PM CDT documented as of this encounter
--- OUTSIDE RECORDS SUMMARY | 2022-01-10 09:02 | XMS_ITS | Encounter Summary ---
:[address] [facility] Address [address] [place] [address] Care Team Providers Name Role Phone Unavailable Primary Care Provider Unavailable Reason for Referral Outpatient (Routine) - Closed Specialty Diagnoses / Procedures Referred By Contact Refer red To Contact Cardiovascular Disease Venkata Mayen [place] M.D. [address] [place] [phone] Referral ID Status Reason Start Date Expiration Date Visits Requ ested Visits Authorized [id number] Closed 11/15/2020 11/15/2021 1 1 utpatient (Routine) - Closed Specialty Diagnoses / Procedures Referred By Contact Refer red To Contact Diagnoses Ischemic Heart Chronic Disease Venkata Mayen M.D. 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 How many drinks containing alcohol [...] or relatives? How often do you attend uatsdin or More than 4 times per year 11/13/2021 congregation services? 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 documented as of this encounter Plan of Treatment Scheduled Referrals Name Type Priority Associated Order Schedule Diagnoses Cardiovascular Disease Outpatient Referral Routine Expected: office visit (clinic) 2021 (Approximate), Expires: 11/16/2023 documented as of this encounter Results ECG 12 Lead (04/10/2021 2:16 PM CONSULTING SERVICES MANAGER) P athologist Signature Ventricular Rate 90 BPM MUSE ECG/Min LA Interval 162 ms MUSE QRSD Interval 86 ms MUSE QT Interval 376 ms MUSE QTC Interval 459 ms MUSE P [place]ico 54 degrees MUSE R [place] 53 degrees MUSE T Wave [place] 29 degrees MUSE Specimen Anatomical Collection Method Collection Time Receive d Time (Source) Location / / Volume Laterality 04/10/2021 2:16 PM 2:25 CONSULTING SERVICES MANAGER PM CONSULTING SERVICES MANAGER Impressions MUSE - 04/10/2021 2:25 PM CONSULTING SERVICES MANAGER Normal sinus rhythm Nonspecific ST abnormality When compared with ECG of 03-OCT-2020 10 :38, No significant change was found Reviewed by LOGAN Moreno Narrative This result has an attachment that is no t available. Procedure Note Timothy Cross Jr., M.D. - 04/10/2021For matting of this note might be different from the original. IMPRESSION: Normal sinus rhythm Nonspecific ST abnormality When compared with ECG of 03-OCT-2020 10 :38, No significant change was found Reviewed by LOGAN Moreno Venkata aMyen M.D. ECG ORDERABLES Performing Organization Address City/State/ZIP Code Phon e Number MUSE MUSE NA (ABNORMAL) Lipid Panel (04/10/2021 1:40 PM CONSULTING SERVICES MANAGER) athologist Signature Cholesterol, 129 mg/dL 04/10/2021 DTL Total 2:33 PM CONSULTING SERVICES MANAGER Comment: ----REFERENCE VALUE---- Desirable: < 200 Borderline high: 200 - 239 High: > or = 240 Triglycerides 123 mg/dL 04/10/2021 2:33 PM CONSULTING SERVICES MANAGER DTL Comment: ----REFERENCE VALUE---- Normal: <150 Borderline high: 150-199 High: 200-499 Very high: > or =500 Cholesterol, HDL, S 43 (L) >=50 mg/dL 04/10/2021 2:33 PM CONSULTING SERVICES MANAGER DTL Calculated LDL 61 mg/dL 04/10/2021 2:33 PM CONSULTING SERVICES MANAGER DT L Comment: ----REFERENCE VALUE---- Desirable: <100 mg/dL Above Desirable: 100-129 mg/dL Borderline High: 130-159 mg/dL High: 160-189 mg/dL Very High: >=190 mg/dL Cholesterol, Non-HDL, Calculated 86 mg/dL 022 2:33 PM CONSULTING SERVICES MANAGER DTL Comment: ----REFERENCE VALUE---- Desirable: <130 Above Desirable: 130-159 Borderline high: 160-189 High: 190-219 Very high: > or =220 Specimen Anatomical Collection Method Collection Time Receive d Time (Source) Location / / Volume Laterality Blood (Blood, 04/10/2021 1:40 PM 04/10/19 22 2:15 Venous) CONSULTING SERVICES MANAGER PM CONSULTING SERVICES MANAGER Venkata Mayen M.D. LAB BLOOD ADD-ON Performing Organization Address City/State/ZIP Code Phon e Number [facility] - 200 [place], [place] [address] [facility] [place] [address] [facility] [address] [place] CBC with Differential, Blood (04/10/2021 1:39 PM CONSULTING SERVICES MANAGER) P athologist Signature Hemoglobin 13.7 11.6 - 04/10/2021 DTL 15.0 g/dL 2:10 PM CONSULTING SERVICES MANAGER Hematocrit 42.2 35.5 - 04/10/2021 DTL 44.9 % 2:10 PM CONSULTING SERVICES MANAGER Erythrocytes 4.81 3.92 - 04/10/2021 DTL 5.13 2:10 PM CONSULTING SERVICES MANAGER x10(12)/L MCV 87.7 78.2 - 04/10/2021 DTL 97.9 fL 2:10 PM CONSULTING SERVICES MANAGER RBC Distrib Width 13.5 12.2 - 04/10/2021 DTL 16.1 % 2:10 PM CONSULTING SERVICES MANAGER Platelet Count 169 157 - 371 04/10/2021 DTL x10(9)/L 2:10 PM CONSULTING SERVICES MANAGER Leukocytes 7.9 3.4 - 9.6 04/10/2021 DTL x10(9)/L 2:10 PM CONSULTING SERVICES MANAGER Neutrophils 5.33 1.56 - 04/10/2021 DTL 6.45 2:10 PM CONSULTING SERVICES MANAGER x10(9)/L Lymphocytes 2.03 0.95 - 04/10/2021 DTL 3.07 2:10 PM CONSULTING SERVICES MANAGER x10(9)/L Monocytes 0.43 0.26 - 04/10/2021 DTL 0.81 2:10 PM CONSULTING SERVICES MANAGER x10(9)/L Eosinophils 0.08 0.03 - 04/10/2021 DTL 0.48 2:10 PM CONSULTING SERVICES MANAGER x10(9)/L Basophils 0.03 0.01 - 04/10/2021 DTL 0.08 2:10 PM CONSULTING SERVICES MANAGER x10(9)/L Specimen Anatomical Collection Method Collection Time Receive d Time (Source) Location / / Volume Laterality Blood (Blood, 04/10/2021 1:39 PM 04/10/19 2:05 Venous) CONSULTING SERVICES MANAGER PM CONSULTING SERVICES MANAGER Venkata Mayen M.D. LAB BLOOD ADD-ON Performing Organization Address City/State/ZIP Code Phon e Number [facility] - [address] [place], [place] [address] [facility] [place] [address] [facility] [address] (ABNORMAL) Comprehensive Metabolic Panel (04/10/2021 1:39 PM CONSULTING SERVICES MANAGER) P athologist Signature Potassium, S 4.1 3.6 - 5.2 04/10/2021 DTL mmol/L 2:31 PM CONSULTING SERVICES MANAGER Sodium, S 139 135 - 145 04/10/2021 DTL mmol/L 2:31 PM CONSULTING SERVICES MANAGER Chloride, S 99 98 - 107 04/10/2021 DTL mmol/L 2:31 PM CONSULTING SERVICES MANAGER Bicarbonate, S 31 (H) 22 - 29 04/10/2021 DTL mmol/L 2:31 PM CONSULTING SERVICES MANAGER Anion Gap 9 7 - 15 04/10/2021 DTL 2:31 PM CONSULTING SERVICES MANAGER BUN (Blood Urea 17 6 - 21 04/10/2021 DTL Nitrogen), S mg/dL 2:31 PM CONSULTING SERVICES MANAGER Creatinine 0.75 0.59 - 04/10/2021 DTL 1.04 mg/dL 2:31 PM CONSULTING SERVICES MANAGER eGFR-Non 79 >=60 04/10/2021 DTL Black/ mL/min/BSA 2:31 PM CONSULTING SERVICES MANAGER [place] Comment: ----ADDITIONAL INFORMATION---- Estimated GFR calculated using the 2009 CKD_EPI creatinine equation. eGFR-Black/ >90 >=60 mL/min/BSA 2021 2:31 PM CONSULTING SERVICES MANAGER DTL Comment: ----ADDITIONAL INFORMATION---- Estimated GFR calculated using the 2009 CKD_EPI creatinine equation. Calcium, Total, S 9.6 8.8 - 10.2 mg/dL 04/10/2021 2:31 PM CONSULTING SERVICES MANAGER DTL Glucose, S 105 70 - 140 mg/dL 04/10/2021 2:31 PM CONSULTING SERVICES MANAGER D TL Protein, Total, S 6.4 6.3 - 7.9 g/dL 04/10/2021 2:31 P M CONSULTING SERVICES MANAGER DTL Albumin, S 4.6 3.5 - 5.0 g/dL 04/10/2021 2:31 PM CONSULTING SERVICES MANAGER D TL Aspartate Aminotransferase (AST), 24 8 - 43 U/L 04/10 2:31 PM CONSULTING SERVICES MANAGER DTL S Alkaline Phosphatase, S 59 35 - 104 U/L 04/10/2021 2: 31 PM CONSULTING SERVICES MANAGER DTL Alanine Aminotransferase (ALT), S 34 7 - 45 U/L 04/10 2:31 PM CONSULTING SERVICES MANAGER DTL Bilirubin, Total, S 0.6 <=1.2 mg/dL 04/10/2021 2:31 PM CONSULTING SERVICES MANAGER DTL Specimen Anatomical Collection Method Collection Time Receive d Time (Source) Location / / Volume Laterality Blood (Blood, 04/10/2021 1:39 PM 04/10/19 2:15 Venous) CONSULTING SERVICES MANAGER PM CONSULTING SERVICES MANAGER Venkata Mayen M.D. LAB BLOOD ADD-ON Performing Organization Address City/State/ZIP Code Phon e Number [facility] - [address] [place], [place] [address] [facility] [place] [address] [facility] [address] documented in this encounter Visit Diagnoses Diagnosis Ischemic Heart Chronic Disease - Primary documented in this encounter Additional Health Concerns Assessment Noted Time PHQ-9 Depression Total Score: 6 08/20/2012 4:08 PM CDT documented as of this encounter
--- OUTSIDE RECORDS SUMMARY | 2022-01-10 09:02 | XMS_ITS | Encounter Summary ---
:1950 Author Organization [facility] Address [address] [place] [address] Care Team Providers Name Role Phone Unavailable Primary Care Provider Unavailable Reason for Visit Reason Comments Phone Contact Encounter Details Date Type Department Care Team Description 11/07/2020 Clinical Communication Department of Venkata Mayen Contact Cardiovascular Medicine Gus Rivera in [facility] pretty [address] [facility] [address] [place] [phone] Social History Tobacco Use Types Packs/Day Years Used Date Smoking Tobacco: Former Cigarettes 0 0 06/0 08/1965 - 04/01/1979 Smokeless Tobacco: Never Alcohol Use Standard Drinks/Week Comments Yes 10 (1 standard drink = 0.6 oz pure alcoh ol) Alcohol Habits Answer Date Recorded How often do you have a drink containing 4 or more times a w [place] 11/13/2021 alcohol? How many drinks containing alcohol [...] More than 4 times per year 11/13/2021 zoroastrian services? 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 Appointment/Visit Type/Schedule Procedure ?? Goal or summary: ?? Dates interested in: Additional comments: Patient thought she was supposed to call at 11AM. She forgot. What would you like us to tell her? Thanks Gretchen [phone] documented in this encounter Plan of Treatment Not on filedocumented as of this encounter Visit Diagnoses Not on filedocumented in this encounter Additional Health Concerns Infection Onset Date Last Indicated Resolved Time COVID19 Pending 11/10/2020 11/10/2020 11/10/2020 12:37 PM CDT COVID19 Pending 11/10/2020 11/10/2020 11/11/2020 4:59 PM CDT Assessment Noted Time PHQ-9 Depression Total Score: 6 08/20/2012 4:08 PM CDT documented as of this encounter
--- OUTSIDE RECORDS SUMMARY | 2022-01-10 09:02 | XMS_ITS | Encounter Summary ---
:1950 Author Organization [facility] Address [address] [place] [id number] Care Team Providers Name Role Phone Unavailable Primary Care Provider Unavailable Reason for Referral Outpatient (Routine) - Closed Specialty Diagnoses / Procedures Referred By Contact Refer red To Contact Cardiovascular Disease Venkata Mayen [place] M.D. [address] [place] [phone] Referral ID Status Reason Start Date Expiration Date Visits Requ ested Visits Authorized [id number] Closed 10/26/2020 10/26/2021 1 1 Encounter Details Date Type Department Care Team Description 10/26/2020 Orders Only Department of Venkata Mayen Ischemic Heart Chronic Cardiovascular Medicine Gus Rivera Disease (Primary Dx) in [facility] pretty [address] [place] [address] [place] [phone] Social History Tobacco Use Types Packs/Day Years Used Date Smoking Tobacco: Former Cigarettes 0 0 06/0 08/1965 - 04/01/1979 Smokeless Tobacco: Never Alcohol Use Standard Drinks/Week Comments Yes 10 (1 standard drink = 0.6 oz pure alcoh ol) Alcohol Habits Answer Date Recorded How often do you have a drink containing 4 or more times a w [place] 11/13/2021 alcohol? How many drinks containing alcohol [...] More than 4 times per year 11/13/2021 [employer]ental orthodox services? 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
--- OUTSIDE RECORDS SUMMARY | 2022-01-10 09:02 | XMS_ITS | Encounter Summary ---
:1950 Author Organization [facility] Address [address] [place] [id number] Care Team Providers Name Role Phone Unavailable Primary Care Provider Unavailable Reason for Visit Reason Comments Med Refill Encounter Details Date Type Department Care Team Description 12/28/2020 Refill Department of Cardiovascular Ask Venkata benitez M.D. Med Refill Medicine in [place], [place] [address] [facility] [address] [place] [phone] (Wo rk) Social History Tobacco Use Types Packs/Day Years Used Date Smoking Tobacco: Former Cigarettes 0 0 /0 08/1965 - 04/01/1979 Smokeless Tobacco: Never Alcohol Use Standard Drinks/Week Comments Yes 10 (1 standard drink = 0.6 oz pure alcoh ol) Alcohol Habits Answer Date Recorded How often do you have a drink containing 4 or more times a w [place] 11/13/2021 alcohol? How many drinks containing alcohol [...] or relatives? How often do you attend sabianism or More than 4 times per year 11/13/2021 hindu services? Do you belong to any clubs or Yes 11/13/2021 organizations such as sabianism groups, unions, fraternal or athletic groups, or [...] place to sleep or slept in a nursing home (including now)? Education Answer Date Recorded What is the highest level of school you have completed or 12 th grade 10/02/2020 the highest degree you have received? 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
--- OUTSIDE RECORDS SUMMARY | 2022-01-10 09:02 | XMS_ITS | Encounter Summary ---
:1950 Author Organization [facility] Address [address] [place] [id number] Care Team Providers Name Role Phone Unavailable Primary Care Provider Unavailable Reason for Visit Reason Comments Patient Education Outpatient (Routine) - Closed Specialty Diagnoses / Procedures Referred By Contact Refer red To Contact Cardiovascular Disease Venkata Mayen [place] M.D. [address] [place] [phone] Referral ID Status Reason Start Date Expiration Date Visits Requ ested Visits Authorized [id number] Closed 10/26/2020 10/26/2021 1 1 Encounter Details Date Type Department Care Team Description 11/10/2020 Virtual Visit Department of Venkata Mayen M.D. [address] [place] [phone] Dyspnea On Exertion Cardiovascular Medicine Lenora Saeed R.N. [address] [place] [phone] in [facility] [address] [place] [phone] Social History Tobacco Use Types Packs/Day Years Used Date Smoking Tobacco: Former Cigarettes 0 0 06/0 08/1965 - 04/01/1979 Smokeless Tobacco: Never Alcohol Use Standard Drinks/Week Comments Yes 10 (1 standard drink = 0.6 oz pure alcoh ol) Alcohol Habits Answer Date Recorded How often do you have a drink containing 4 or more times a w [place] 11/13/2021 alcohol? How many drinks containing alcohol [...] More than 4 times per year 11/13/2021 [employer] services? 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 - 11/10/2020 9:00 AM CDT Pre-procedure instructions include: 1. Basic information about the scheduled procedure 2. Fasting for 8 hours, 6 hours, and 2 hours prior to report time; refer to page 8 of the pamphlet entitled Preparing For Your Cardiac Catheterization or Heart Rhythm Procedure for details 3. Presence of a responsible adult (18 years of age or older) the day of procedure as well as for transportation home 4. See updated Visitor policy: Due to the COVID-19 pandemic, visitor restrictions are in place. Two visitors are permitted to accompany the patient to any outpatient appointments, procedures, and the patient's hospital room. Visiting hours are 7 am to 9 pm. 5. Stay within 100 miles of [place] overnight 6. Take all medications as instructed 7. Call the [facility] Service Line ([phone]) the evening before the procedure between the hours of 7 pm and midnight to learn what time and where to report to the hospital the next day Vitamins/Supplements Instructions: Do not take vitamins or supplements the morning of the procedure. Plavix Instructions: Take 4 tablets (300 mg total) of Plavix on the day prior to your procedure. Take 1 tablet (75 mg) ofPlavix on the morning of your procedure. ?? Aspirin Instructions: Take 4 tablets of 81mg Aspirin, for a total of 324mg, on the morning of your procedure. documented in this encounter Progress Notes Lenora Saeed R.N. - 11/10/2020 9:00 AM CDT SUBJECTIVE REASON FOR PHONE CALL Pre-procedure education OBJECTIVE Review done via RN Protocol: Cardiovascular Clinic Pre-Cardiac Invasive Catheterization Procedure Patient Management Reference document #[id number] Date of procedure: 11/14/20 Procedure to be done: -- PCI +/- (Plavix and ASA load) ZANA in the last 30 days from date of procedure: Yes ECG in the last 45 days from date of procedure: Yes Labs in the last 45 days from date of procedure: Yes COVID test done? Yes Allergy to contrast dye/iodine/shellfish? No Cardiac and Medical History -- Other: CAD, HTN, Ischemic heart disease, Chest Pin CASTLE, ZACHARY Medications See Patient Instructions/AVS (in Notes Tab) Anticoagulation Plan Not applicable ASSESSMENT / PLAN Information Discussed Reviewed pre-procedure instructions with patient/family as listed in ???Preparing For Your Cardiac Catheterization or Heart Rhythm Procedure?? , [id number]. See After Visit Summary for specific instructions shared with the patient. Disposition/Recommendation: protocol orders Information/Education: patient/caller able to teach back Caller agreeable to plan of care: yes The following references were used: nursing clinical judgement Additional education materials provided: Preparing For Your Cardiac Catheterization or Heart Rhythm Procedure, [id number] About Your Heart-Catheter Procedures, [id number] Sent to patients portal. documented in this encounter Plan of Treatment Not on filedocumented as of this encounter Visit Diagnoses Diagnosis Dyspnea On Exertion documented in this encounter Additional Health Concerns Assessment Noted Time PHQ-9 Depression Total Score: 6 08/20/2012 4:08 PM CDT documented as of this encounter
--- OUTSIDE RECORDS SUMMARY | 2022-01-10 09:02 | XMS_ITS | Encounter Summary ---
:1950 Author Organization [facility] Address [address] [place] [id number] Care Team Providers Name Role Phone Unavailable Primary Care Provider Unavailable Encounter Details Date Type Department Care Team Description 11/14/2020 Surgery Division of Cardiovascular [facility], Hans erickson CORONARY ANGIOGRAPHY Diseases in [facility] Region[place]iffanie [place] [id number] [place] [phone] (Wo rk) Social History Tobacco Use Types Packs/Day Years Used Date Smoking Tobacco: Former Cigarettes 0 0 0 08/1965 - 04/01/1979 Smokeless Tobacco: Never Alcohol Use Standard Drinks/Week Comments Yes 10 (1 standard drink = 0.6 oz pure alcoh ol) Alcohol Habits Answer Date Recorded How often do you have a drink containing 4 or more times a w [place] 11/13/2021 alcohol? How many drinks containing [...] or relatives? How often do you attend orthodoxy or More than 4 times per year 11/13/2021 yazidi services? Do you belong to any clubs or Yes 11/13/2021 organizations such as orthodoxy groups, unions, fraternal or athletic groups, or [...] place to sleep or slept in a detention (including now)? Education Answer Date Recorded What is the highest level of school you have completed or 12 th grade 10/02/2020 the highest degree you have received? 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 - 11/15/2020 9:00 AM CDT CARDIOLOGY HOSPITAL DISCHARGE SUMMARY DATE OF ADMISSION: 11/14/2020 DATE OF DISCHARGE: 11/15/2020 Discharge Provider: Dontae Rubio M.D. Discharge Provider Team: RST CVD Interventional/Cath PRINCIPAL DIAGNOSIS Ischemic Heart Chronic Disease DISMISSAL DIAGNOSES #1 Ischemic Heart Chronic Disease #2 Hypertensive Heart Disease Without Heart Failure #3 Hyperlipidemia On Treatment #4 Coronary Artery Disease Without Angina Pectoris #5 Apnea Sleep Obstructive #6 Obesity Body Mass Index 30-39.9 Adult #7 Impaired Fasting Glucose #8 Cancer Breast Personal History #9 Atherosclerotic Heart Disease Of [place] Coronary Artery Without Angina Pectoris; status post PCI to RCA on 11/14/20 RECOMMENDATIONS FOR FOLLOW-UP APPOINTMENTS 1. Assess access site: Right femoral 2. Plavix 75 mg daily for 6 months following PCI 3. Aspirin 81 mg daily lifelong 4. Encourage CV rehab participation 5. BMP and CBC at PCP follow up. 6. Follow up with PCP routinely. 7. Follow up with Cardiology routinely. 8. Continue prn nitro as needed for chest pain/angina. RESTRICTIONS: Please see after visit summary for list of instructions/restrictions. FOLLOW-UP APPOINTMENTS For appointment details refer to your Patient Appointment Guide. HOSPITAL COURSE Admission Weight: 105 kg Dismissal Weight: 103 kg BMI: Body mass index is 41.42 kg/m??. Ms. Collins is a 70 y.o. female who underwent successful rotational atherectomy with PCI to proximalRCA and mid RCA with Dr. Rubio and Dr. Campos. She has a past medical history significant for CAD with prior PCI, trivial , hypertension, ZACHARY with CPAP use. Mrs. Collins tolerated procedure well. Postprocedure she is resting comfortably and denied any pain,discomfort, or shortness of breath. Discussed the importance of Plavix 75 mg daily for the next 6 months following her stent placement. She states she has a current prescription for Plavix and does notneed a new 1. Also discussed aspirin [address] Mayen discussed with her stopping Imdur post stenting which we can do at discharge. We will switch her from a full strength ASA to ASA 81 mg daily. She was observed in the hospital overnight and discharged the following day. Prior to discharge she was tolerating oral intake, voiding, and ambulating without complications. Her vital signs were stable overnight. Telemetry showed normal sinus rhythm with one episode of artifact (likely due to lead issues) Access site remained dry and intact without hematoma and distal pulses were palpable. We discussed the plans for discharge including restrictions and follow up and importance of DAPT. She was in agreement. All of her questions and concerns were answered and addressed prior to discharge. PHYSICAL EXAM General: Well developed. Appears in no acute pain or distress. HEENT: mucus membranes moist, pupils reactive. Heart: regular rate and rhythm. No murmurs noted. Lungs: Clear to auscultation bilaterally. No wheezes, rhonchi, or rales. Abdomen: Soft, non-tender, bowel sounds active. Skin: warm, dry, no obvious skin lesions or rashes. Musculoskeletal: ROM intact to upper and lower extremities. Extremities: bilateral peripheral pulses palpable. No lower extremity edema noted bilaterally. Rightfemoral access site clean, dry, free from hematoma, swelling, discharge. Neurologic: awake, alert, and fully oriented. No focal sensory or motor deficits. TEST RESULTS PENDING AT DISCHARGE: Pending Labs None DISCHARGE DISPOSITION: Home or Self Care [1] CONDITION ON DISCHARGE: Stable. DIET AT DISCHARGE: Heart healthy diet (low sodium,low cholesterol,low fat) PRIMARY PROVIDER Patient Care Team: Lorin Parson M.D. as External Primary Care Physician (Family Medicine) No primary care provider on file. Primary Care Provider Phone Number: None Primary Care Provider Fax Number: None MARGIN CODE I personally spent total time of >30 minutes with >50% spent with counseling/coordination of care, independent from other providers on our team. documented in this encounter Discharge Instructions Discharge InstructionsAnnamaria Hong - 11/14/2020 9:06 AM CDT [facility] were discharged from the [facility] CVD Interventional/Cath Service. Please identify this service name if you call with questions after hospitalization. AttachmentsThe following attachments cannot be sent through Care Everywhere. Acetaminophen (By mouth) (Arabic)documented in this encounter Medications at Time of Discharge Medication Sig Dispensed Refills Start Date End Date albuterol 90 mcg/actuation Inhale 2 puffs 0 inhaler every 4 (four) hours as needed. calcium carbonate (CALCIUM Take 2 tablets 0 500 ORAL) by mouth daily. cholecalciferol (VITAMIN D3) Take 2,000 Units 0 2,000 Unit capsule by mouth daily. ezetimibe (ZETIA) 10 mg Take 10 mg by 0 9 tablet mouth at bedtime. nitroglycerin (NITROSTAT) 0.[address] Place 0.4 mg 0 mg SL tablet under the tongue as needed. rosuvastatin (CRESTOR) 40 mg Take 1 tablet by 0 0 06/08/2012 tablet mouth at bedtime. sertraline (ZOLOFT) 100 mg Take 1 tablet by 0 tablet mouth at bedtime. clopidogreL (PLAVIX) 75 mg Take 1 tablet 30 tablet 6 202005/17/2021 tablet (75 mg total) by mouth daily. Take plavix 75 mg daily for 6 months pos PCI on 11/14/20. aspirin 81 mg chewable tablet Chew 1 tablet 0 12/28/2020 (81 mg total) daily. hydroCHLOROthiazide 1 tablet (25 mg 0 11/07/2020 05/09/2021 (HYDRODIURIL) 25 mg tablet total) daily. metoprolol tartrate Take 1 tablet 0 09/02/2018 (LOPRESSOR) 25 mg tablet (25 mg total) by mouth 2 (two) times a day. ramipril (ALTACE) 5 mg Take 5 mg by 0 07/31/2018 01/09/2021 capsule mouth at bedtime. verapamil (VERELAN) 180 mg 24 Take 1 capsule 0 05/09/2021 hr capsule by mouth at bedtime. documented as of this encounter Progress Notes Lesvia Coates R.R.T., L.R.T. - 11/14/2020 10:20 PM CDT 11/14/20 0943 BPAP/CPAP Therapy BPAP/CPAP Interface Full face mask;Skin barrier BPAP/CPAP Interface Size Medium Skin barrier Liquid-filled membrane $BPAP/CPAP Yes Patient was placed on CPAP, AutoSet 5-15. Electronically signed by: Lesvia Coates R.R.T., L.R.T. 11/14/20 10:21 PM CDT documented in this encounter H&P Notes Anaid Marie, CONCHA, C.N.P., D.N.P. - 11/14/2020 12:58 PM CDT CARDIAC CATHETERIZATION ASSESSMENT NOTE HISTORY OF PRESENT ILLNESS Ms. Collins is a 70 y.o. female who underwent successful rotational atherectomy with PCI to proximalRCA and mid RCA with Dr. Rubio and Dr. Campos. She has a past medical history significant for CAD with prior PCI, trivial , hypertension, ZACHARY with CPAP use. The following portions of the patient's history were reviewed and updated as appropriate: allergies,current medications, family history, medical history, social history, surgical history and problem list. PAST MEDICAL HISTORY Active Ambulatory Problems Diagnosis Date Noted ??? Hypertensive Heart Disease Without Heart Failure 06/08/2012 ??? Ischemic Heart Chronic Disease 06/08/2012 ??? Hyperlipidemia On Treatment 06/08/2012 ??? Coronary Artery Disease Without Angina Pectoris 09/02/2018 ??? Apnea Sleep Obstructive 09/02/2018 ??? Obesity Body Mass Index 30-39.9 Adult 09/02/2018 ??? Impaired Fasting Glucose 09/02/2018 ??? Cancer Breast Personal History 09/02/2018 ??? Dyspnea On Exertion 08/10/2014 Resolved Ambulatory Problems Diagnosis Date Noted ??? No Resolved Ambulatory Problems Past Medical History: Diagnosis Date ??? Cataract ??? Coronary Artery Disease (Unspecified) ??? Glaucoma ??? Hyperlipidemia ??? Hypertension NOS ??? Polyp Colon ??? Sleep Apnea ??? ST Elevation Myocardial Infarction Of Unspecified Site (HCC) ALLERGIES Allergies Allergen Reactions ??? Sulfa (Sulfonamide Antibiotics) Other (see comments) HOME MEDICATIONS Current Medications: ??? acetaminophen tablet 1,000 mg (TYLENOL), Q6H PRN ??? aminophylline infusion 250 mg/250 mL NaCl 0.9% (Card L[place] Only), As Directed PRN ??? aspirin chewable tablet 324 mg, Once OR aspirin chewable tablet 243 mg, Once OR aspirin chewable tablet 162 mg, Once OR aspirin chewable tablet 81 mg, Once ??? atropine injection 0.5 mg, Q5 Min PRN ??? docusate sodium capsule 100 mg (COLACE), BID PRN ??? fentaNYL injection 25 mcg (SUBLIMAZE), Q2 Min PRN ??? fentaNYL injection 25 mcg (SUBLIMAZE), Once PRN ??? flumazeniL injection 0.2 mg (ROMAZICON), Once PRN ??? heparin (porcine) 1,000 unit/mL injection, PRN ??? iohexoL 350 mg iodine/mL solution (OMNIPAQUE), PRN ??? lidocaine 10 mg/mL (1 %) injection (XYLOCAINE), PRN ??? midazolam (PF) injection 0.25 mg (VERSED), Q2 Min PRN ??? midazolam (PF) injection 0.5 mg (VERSED), Q2 Min PRN ??? midazolam (PF) injection 1 mg (VERSED), Q2 Min PRN ??? midazolam (PF) injection 1 mg (VERSED), Q2H PRN ??? NaCl 0.9 % bolus 250 mL, Once PRN ??? NaCl 0.9% infusion, Once OR NaCl 0.9% infusion, Once OR NaCl 0.9% infusion, Once ??? NaCl 0.9% infusion, Once PRN ??? naloxone injection 0.2 mg (NARCAN), Once PRN ??? naloxone injection 0.2 mg (NARCAN), PRN ??? nitroglycerin in D5W 100 mcg/mL syringe (for intra-arterial use only), PRN ??? nitroglycerin SL tablet 0.4 mg (NITROSTAT), Q5 Min PRN ??? sodium chloride 0.9 % injection 10 mL, PRN ??? sodium chloride 0.9 % injection 10 mL, PRN ??? sodium chloride 0.9 % injection 10 mL, PRN ??? sodium chloride 0.9 % injection 3 mL, PRN ??? sodium chloride 0.9 % injection 3 mL, Q12H PENG ??? sodium chloride 0.9 % injection 3 mL, PRN ??? sodium chloride 0.9 % injection 3 mL, Q12H PENG ??? sodium chloride 0.9 % injection 3 mL, PRN ??? sodium chloride 0.9 % injection 3 mL, Q12H PENG SOCIAL HISTORY She is a former smoker and quit in 1979. She smoked for approximately 20 years FAMILY HISTORY Significant for several family members with coronary artery disease. She also has several family members with breast cancer. VITAL SIGNS Temperature: [36.9 ??C] 36.9 ??C Heart Rate: [66-74] 69 Resp Rate: [6-17] 8 Blood Pressure: (109-139)/(60-79) 138/64 Arterial Line BP: (94-112)/(52-63) 109/56 SpO2: [93 %-98 %] 94 % Flow Rate (L/min): [2 L/min] 2 L/min Height: [158 cm] 158 cm Weight: [105 kg] 105 kg BSA (Calculated - sq m): [2.15 sq meters] 2.15 sq meters BMI (Calculated): [42.3 kg/m??] 42.3 kg/m?? Pulse Rate: [42-73] 69 Body mass index is 42.26 kg/m??. PHYSICAL EXAMINATION General: Calm, pleasant, in no acute distress. Heart: Regular rate and rhythm. Lungs: CT a Abdomen: Soft, nondistended, bowel sounds present. Skin: Warm and dry. Extremities: Femoral site dry and intact without hematoma. She currently sutured into flush bag. Peripheral pulses palpable. Mental: Bright affect. Neuro: Fully alert and oriented to person, place, time, and situation. Able to move all extremities on command, no focal neuro deficits appreciated. DIAGNOSTICS Results from last 7 days Lab Units 11/10/20 1254 WBC x10(9)/L 9.1 HEMOGLOBIN g/dL 13.3 HEMATOCRIT % 41.7 PLATELETS AUTO x10(9)/L 172 Results from last 7 days Lab Units 11/10/20 1254 SODIUM P mmol/L 138 CREATININE P mg/dL 0.84 BUN P mg/dL 17 CHLORIDE P mmol/L 97* MAGNESIUM RL mg/dL 1.8 Lab Results Component Value Date CHOL 116 10/03/2020 CHOL 116 10/03/2020 TRIG CANCELED 10/03/2020 TRIG 100 10/03/2020 HDL 38 (L) 10/03/2020 HDL 38 (L) 10/03/2020 LDLCALC 58 10/03/2020 LDLCALC 58 10/03/2020 Postprocedure Mrs. Collins is resting comfortably in the PACU. She denies any pain, discomfort, or shortness of breath different from baseline. Access site is dry and intact with sheath to flush bag. There is no hematoma. Discussed the importance of Plavix therapy for 6 months following stent placement. Also discussed aspirin 81 mg daily recommended lifelong. ASSESSMENT / PLAN #1 Ischemic Heart Chronic Disease #2 Hypertensive Heart Disease Without Heart Failure #3 Hyperlipidemia On Treatment #4 Coronary Artery Disease Without Angina Pectoris #5 Apnea Sleep Obstructive #6 Obesity Body Mass Index 30-39.9 Adult #7 Impaired Fasting Glucose #8 Cancer Breast Personal History #9 Atherosclerotic Heart Disease Of [place] Coronary Artery Without Angina Pectoris Recommendations: 1. Sheath removal and Bedrest per protocol 2. Plavix 75 mg daily for 6 months following PCI 3. Aspirin 81 mg daily recommended lifelong 3. Cardiac Rehab consultation on been placed 4. Anticipate overnight observation with discharge tomorrow pending clinical course. Plan discussed with patient and family. Questions were answered to the best of my ability. Will continue to follow closely. Anaid Marie APRN, C.N.Uriah, D.N.P. 11/14/20 PATIENT EDUCATION: Learning needs assessment done. Barriers assessed (cultural, yazidi/spiritual, motivational, physical/cognitive, language, emotional). Ready to learn. Patient has no barriers. Explained diagnosis and treatment options. documented in this encounter Consult Notes [place]a [place], LAILA - 11/14/2020 1:42 PM CDTAssociated Order(s): IP CONSULT TO CARDIAC REHABILITATION Cardiac Rehabilitation [...] process with ongoing education and support. Patient may be interested in attending a cardiac rehabilitation program. 2. Eligibility: PCI 3. Exceptions/exclusions: None. 4. Referral: Patient agreed with referral to a cardiac rehabilitation program. Please see discharge order and/or letter for program details. [place] [id number] 5. Appropriate referral information will be sent to the receiving cardiac rehabilitation program as applicable. Patient provided verbal authorization to send relevant materials to the cardiac rehab program. Recommend that the patient check with insurance company to verify coverage of the cost of cardiac rehabilitation program visits. Patient Education/Questionnaires sent via Patient Portal: None documented in this encounter Nursing Notes Annamaria Perez R.N. - 11/15/2020 10:29 AM CDT Problem: PAIN - ADULT Goal: PT VERBALIZES/DEMONSTRATES [...] from fall/fall injury Outcome: Adequate for Discharge Problem: NEUROSENSORY - ADULT Goal: Achieves stable or improved neurological status Outcome: Adequate for Discharge Goal: Absence of seizures Outcome: Adequate for Discharge Goal: Remains free of injury related to seizures activity Outcome: Adequate for Discharge Goal: Achieves maximal functionality and self care Outcome: Adequate for Discharge Problem: CARDIOVASCULAR - ADULT Goal: Maintains optimal cardiac output and hemodynamic stability Outcome: Adequate for Discharge Goal: Achieve stable or improve cardiac rhythm Outcome: Adequate for Discharge Problem: RESPIRATORY - ADULT Goal: Achieves optimal ventilation and oxygenation Outcome: Adequate for Discharge Problem: GENITOURINARY - ADULT Goal: Optimize urinary function Outcome: Adequate for Discharge Shift Goals: Clinical Goals for the Shift: Patient will verbalize site care management Identify possible barriers to meeting goals/advancing plan of care: Right Femoral Site End of Shift Summary: Goal met. Education completed and patient able to provide teach back. VSS. Patient is discharging home self care. Binta Hale, R.N. - 11/15/2020 6:43 AM CDT Shift Goals: Clinical Goals for the Shift:Patient will alhaji no signs of post angio complications during the shift. Identify possible barriers to meeting goals/advancing plan of care: None End of Shift Summary: Patient is stable. VSS. Denied chest pain or other complications during the shift. We will continue to monitor patient and prep for discharge. Problem: PAIN - ADULT Goal: PT VERBALIZES/DEMONSTRATES ADEQUATE COMFORT LEVEL OR BASELINE 11/15/2020642 by Binta Hale, R.N. Outcome: Progressing 11/15/2020641 by Binta Hale, R.N. Outcome: Progressing Problem: KNOWLEDGE DEFICIT Goal: Patient/family/caregiver demonstrates understanding of disease process, treatment plan, medications, and discharge instructions 11/15/2020642 by Binta Hale, R.N. Outcome: Progressing 11/15/2020641 by Binta Hale, R.N. Outcome: Progressing Problem: INFECTION - ADULT Goal: Absence of infection during hospitalization 11/15/2020642 by Binta Hale, R.N. Outcome: Progressing 11/15/2020641 by Binta Hale, R.N. Outcome: Progressing Problem: SKIN/TISSUE INTEGRITY Goal: Skin/Tissue integrity maintained or improved 11/15/2020642 by Binta Hale, R.N. Outcome: Progressing 11/15/2020641 by Binta Hale, R.N. Outcome: Progressing Goal: Oral and Nasal mucous membranes remain intact 11/15/2020642 by Binta Hale, R.N. Outcome: Progressing 11/15/2020641 by Binta Hale, R.N. Outcome: Progressing Problem: SAFETY ADULT Goal: Maintain a safe environment 11/15/2020642 by Binta Hale, R.N. Outcome: Progressing 11/15/2020641 by Binta Hale RAguilarNAguilar Outcome: Progressing Problem: DISCHARGE PLANNING Goal: Patient discharge needs identified 11/15/2020 0643 by Binta Hale RAguilarN. Outcome: Progressing 11/15/2020 0642 by Binta Hale RAguilarNAguilar Outcome: Progressing Problem: SAFETY ADULT - RISK FOR FALL AND OR FALL INJURY Goal: Patient remains free from fall/fall injury 11/15/2020 0643 by Binta Hale RAguilarN. Outcome: Progressing 11/15/2020 0642 by Binta Hale R.N. Outcome: Progressing Problem: NEUROSENSORY - ADULT Goal: Achieves stable or improved neurological status Outcome: Progressing Goal: Absence of seizures Outcome: Progressing Goal: Remains free of injury related to seizures activity Outcome: Progressing Goal: Achieves maximal functionality and self care Outcome: Progressing Problem: CARDIOVASCULAR - ADULT Goal: Maintains optimal cardiac output and hemodynamic stability Outcome: Progressing Goal: Achieve stable or improve cardiac rhythm Outcome: Progressing Problem: RESPIRATORY - ADULT Goal: Achieves optimal ventilation and oxygenation Outcome: Progressing Problem: GENITOURINARY - ADULT Goal: Optimize urinary function Outcome: Progressing Annamaria Perez RCullen. - 11/14/2020 5:42 PM CDT Problem: SKIN/TISSUE INTEGRITY Goal: Skin/Tissue integrity maintained or improved Outcome: Progressing Problem: SAFETY ADULT Goal: Maintain a safe environment Outcome: Progressing Problem: SAFETY ADULT - RISK FOR FALL AND OR FALL INJURY Goal: Patient remains free from fall/fall injury Outcome: Progressing Shift Goals: Clinical Goals for the Shift: Patient's femoral site will remain WDL End of Shift Summary: Patient's site remained WDL. Ambulated in room with no complications. VSS. Plan for discharge [facility] tomorrow. Myah Tay R.R.T., L.R.T. - 11/14/2020 2:33 PM CDT Ms. Collins is a 70 y.o. female who underwent successful rotational atherectomy with PCI to proximalRCA and mid RCA with Dr. Rubio and Dr. Campos. She has a past medical history significant for CAD with prior PCI, trivial , hypertension, ZACHARY with CPAP use. Will assist with cpap placement . Did not bring her own in . Could not find script from outside hospital. Will place on cpap 5-15 With O2 if needed Migdalia Romero R.N. - 11/14/2020 1:12 PM CDT I have reviewed pre/post PCI pictures with patient. The procedural stent card has been given to the patient. Discussed with the patient; sheath removal process, bedrest duration, and plan of care. Reviewed the importance of Aspirin and Plavix/Clopidogrel therapy with the patient. All questions answered. Patient verbalizes an understanding of all above information. documented in this encounter OR Notes Brief Op Note - Kameron Campos M.D. - 11/14/2020 8:09 AM CDT Images from the original note were not included. PATIENT: Ivonne Collins : 1950 DATE OF SERVICE: 11/14/2020 Procedure: 1. Coronary angiography. 2. Successful PCI with rotational atherectomy, PTCA, and stent placement to the proximal RCA 3. Successful PCI with PTCA and stent placement to the mid RCA Implant Name Type Inv. Item Serial No. Director Independent Lot No. LRB No. Used Action STNT SYNERGY XD DE [id number] - [id number] Cardiac Stent STNT SYNERGY XD DE 3.50X38 [employer] [id number] N/A 1 Implanted STNT SYNERGY XD DE 4.00X24 - [id number] Cardiac Stent STNT SYNERGY XD DE 4.00X24 [employer] [id number] N/A 1 Implanted Operators: 1. Dontae Rubio M.D. 2. Kameron Campos M.D. Indication: exertional dyspnea, abnormal stress echo, severe CAD Access Site(s): 1. Six [place] right femoral artery, sutured in place Complications: No Recommendations: -Aspirin 81mg daily indefinitely barring any complications -Clopidogrel 75 mg daily for 6 months as part of dual antiplatelet therapy from 11/14/20 -Overnight observation with plan for dismissal tomorrow Please see digital media sales consultant cath operative report for further information. This is available under Document Viewer as Diagnostic Report - Cath/EP. Code status: FULL, until time of discharge If clinical status changes, please contact the proceduralist to discuss reversal of code status. Kameron Campos M.D. 11/14/20 documented in this encounter Miscellaneous Notes Hospital Course - Alvarado Nguyen P.A.-C., P.A. - 11/14/2020 8:18 PM CDT Ms. Collins is a 70 y.o. female who underwent successful rotational atherectomy with PCI to proximalRCA and mid RCA with Dr. Rubio and Dr. Campos. She has a past medical history significant for CAD with prior PCI, trivial , hypertension, ZACHARY with CPAP use. Mrs. Collins tolerated procedure well. Postprocedure she is resting comfortably and denied any pain,discomfort, or shortness of breath. Discussed the importance of Plavix 75 mg daily for the next 6 months following her stent placement. She states she has a current prescription for Plavix and does notneed a new 1. Also discussed aspirin [address] Mayen discussed with her stopping Imdur post stenting which we can do at discharge. We will switch her from a full strength ASA to ASA 81 mg daily. She was observed in the hospital overnight and discharged the following day. Prior to discharge she was tolerating oral intake, voiding, and ambulating without complications. Her vital signs were stable overnight. Telemetry showed normal sinus rhythm with one episode of artifact (likely due to lead issues) Access site remained dry and intact without hematoma and distal pulses were palpable. We discussed the plans for discharge including restrictions and follow up and importance of DAPT. She was in agreement. All of her questions and concerns were answered and addressed prior to discharge. documented in this encounter Plan of Treatment Scheduled Referrals Name Type Priority Associated Diagnoses Order [facility] External referral Outpatient Referral Routine Coronary Stent O rdered: cardiac rehab Status Post 11[facility]14/2020 [facility] documented as of this encounter Procedures Procedure Name Priority Date/Time Associated Comments Diagnosis ECG MONITOR RECORD 11/15/2020 6:16 Result s for this AM CDT procedure are i n the results section. SARS CORONAVIRUS 2, RNA, Routine 11/14/2020 1:38 Results for this RAPID POC, V PM CDT procedure are i n the results section. ACT, POCT, B Routine 11/14/2020 11:10 Results for this AM CDT procedure are i n the results section. ADULT OXYGEN THERAPY Routine 11/14/2020 10:55 AM CDT ADULT OXYGEN THERAPY Routine 11/14/2020 10:55 AM CDT CARDIAC CATHETERIZATION Routine 11/14/2020 10:01 Ischemic Hear t Results for this AM CDT Chronic Disease procedure ar e in the results section. CARDIAC CATHETERIZATION Routine 11/14/2020 10:01 Ischemic Hear t Results for this AM CDT Chronic Disease procedure ar e in the results section. CARDIAC CATHETERIZATION Routine 11/14/2020 10:01 Ischemic Hear t Results for this AM CDT Chronic Disease procedure ar e in the results section. CARDIAC CATHETERIZATION Routine 11/14/2020 10:01 Ischemic Hear t Results for this AM CDT Chronic Disease procedure ar e in the results section. CARDIAC CATHETERIZATION Routine 11/14/2020 10:01 Ischemic Hear t Results for this AM CDT Chronic Disease procedure ar e in the results section. ACT, POCT, B Routine 11/14/2020 9:57 Results for this AM CDT procedure are i n the results section. ACT, POCT, B Routine 11/14/2020 9:01 Results for this AM CDT procedure are i n the results section. documented in this encounter Results ECG MONITOR RECORD (11/15/2020 6:16 AM CDT) Narrative 11/15/2020 6:16 AM CDT This result has an attachment that is no t available. Ordered by an unspecified provider. Default Authenticator Eric ECG ORDERABLES SARS Coronavirus 2, RNA, Rapid POC, V Asymptomatic (11/14/2020 1:38 PM CDT) [facility] Method Time Signature SARS Undetected Undetected 11/14/2020 DTLR Coronavirus-2 2:00 PM CDT , RNA, Rapid POC, V Comment: Negative for SARS-CoV-2. The Yap COVID-19 test is a molecular naz t for SARS-CoV-2, the virus that causes COVID- 19. A Negative result means that the Yap COV ID-19 test did not detect SARS-CoV-2 virus in your sample. Yap COVID-19 test uses the Pixalate System. This test has received Emergency Use Authorization (EUA) by the U.S. Food and Drug Administration (FDA) and is used per man ufacturer instructions. Performance characteristic s were verified by [facility] in a manner consistent with CLIA requirements. Fact sheets for this Emerg ency Use Authorization (EUA) can be found at the following links: Providers: https://[email or web address].MyEdu/documentation/prov iders.pdf Patients: [email or web address].[email or web address]/documentation/julissa ents.pdf SARS Coronavirus 2, Source Nasopharynx DEFAULT 11/14/2020 2:00 PM CDT DTLR Specimen Anatomical Collection Method Collection Time Receive d Time (Source) Location / / Volume Laterality Varies 11/14/2020 1:38 PM 1:38 (Nasopharynx) CDT PM CDT Carmen Blackburn APRN C.N.P., D.N.P., M.S.N. LAB MICROBI OLOGY - GENERAL ORDERABLES Performing Organization Address City/State/ZIP Code Phon e Number PERFORMING LABS, [place] [address] INTERFACE Ref Interface [address] DTLR Performing Labs, [place] [address] Interface [address] [facility] (ABNORMAL) ACT (Activated Clotting Time), POCT (11/14/2020 11:10 AM CDT) athologist Signature Activated 163 (H) 84 - 139 11/14/2020 PCSM Clotting Time, sec 11:14 AM CDT POCT Specimen Anatomical Collection Method Collection Time Receive d Time (Source) Location / / Volume Laterality Blood 11/14/2020 11:10 11/14/2020 AM CDT 11:15 AM CDT Unknown Provider LAB POCT ORDERABLES - DEVICE Performing Organization Address City/State/ZIP Code Phon e Number POC [facility] [address] [place], [place] [address] LABS PCSM [place] [address] [place] [facility] [address] CORONARY ANGIOGRAPHY, PERCUTANEOUS CORONARY ANGIOPLASTY, CORONARY ATHERECTOMY, STENT PLACEMENT, LEFTHEART CATHETERIZATION (11/14/2020 10:01 AM CDT) Anatomical Region Laterality Modality X-Ray Angiography Specimen (Source) Anatomical Location Collection Method / Collectio n Time Received Time / Laterality Volume Narrative 11/14/2020 12:06 PM CDT For the complete report, see the Order-L evel Documents. PROCEDURE TYPES 1. ??CORONARY ANGIOGRAPHY 2. ??PERCUTANEOUS CORONARY ANGIOPLASTY 3. ??CORONARY ATHERECTOMY 4. ??CORONARY STENT PLACEMENT 5. ??HEART CATHETERIZATION - LEFT FINAL DIAGNOSIS 1. ??Severe coronary artery atherosclero sis 2. ??Coronary calcification 3. ??Coronary in-stent restenosis 4. ??Rotational atherectomy of the ostia l RCA 5. ??Successful percutaneous coronary in tervention with drug eluting stent PRE-PROCEDURE DIAGNOSIS 1. ??Ischemic Heart Chronic Disease [I25 .9] 2. ??Chronic ischemic heart disease, uns pecified CORONARY DIAGNOSTIC SUMMARY Coronary artery dominance is right. The left main coronary artery is 10% obs tructed by a discrete lesion. The proximal left anterior descending ar kitty is 40% obstructed by diffuse disease. The middle left anterior descending vidya ry is 30% obstructed by diffuse disease. The distal segment is normal size, diseased. The second diagonal branch is 30% obstru cted by a discrete lesion. The distal segment is normal size, diseased. The proximal circumflex artery is 40% ob structed by a discrete lesion. The first obtuse marginal is 30% obstruc robin by a discrete lesion. The distal segment is normal size, diseased. The proximal right coronary artery is 80 % obstructed by a discrete lesion. The middle right coronary artery is 70% obstructed by a tubular lesion. The distal segment is normal size, diseased. CORONARY INTERVENTION SUMMARY Successful intervention of the Proximal Right Coronary Artery. The preintervention stenosis was 80%. The post intervention stenosis was 0%. Devices used include Atherectomy, PTCA and Stent. Successful intervention of the [place] Coronary Artery. The preintervention stenosis was 70%. The post intervention stenosis was 0%. Devices used include PTCA and Stent. RADIATION DOSE DATA Procedure cumulative skin dose (mGy): 18 40.42 Procedure cumulative dose area product ( Gy-cm2): 116.19 Fluoro Time (Min): 26.42 For the complete report, see the Order-L evel Documents. Venkata Mayen M.D. CV CARDIAC CATH PROCEDURES (ABNORMAL) ACT (Activated Clotting Time), POCT (11/14/2020 9:57 AM CDT) P athologist Signature Activated 230 (H) 84 - 139 11/14/2020 PCSM Clotting Time, sec 10:49 AM CDT POCT Specimen Anatomical Collection Method Collection Time Receive d Time (Source) Location / / Volume Laterality Blood 11/14/2020 9:57 AM 1 CDT 10:49 AM CDT Unknown Provider LAB POCT ORDERABLES - DEVICE Performing Organization Address City/[facility]/ZIP Code Phon e Number POC [facility] INPATIENT [address] [place], [place] [address] [place] [address] [place] [facility] [address] (ABNORMAL) ACT (Activated Clotting Time), POCT (11/14/2020 9:01 AM CDT) P athologist Signature Activated 276 (H) 84 - 139 11/14/2020 PCSM Clotting Time, sec 10:46 AM CDT POCT Specimen Anatomical Collection Method Collection Time Receive d Time (Source) Location / / Volume Laterality Blood 11/14/2020 9:01 AM 1 CDT 10:47 AM CDT Unknown Provider LAB POCT ORDERABLES - DEVICE Performing Organization Address City/[facility]/ZIP [facility] [place] Phon e Number POC [facility] INPATIENT [address] [place], [place] [address] [place] [address] [place] [facility] [address] documented in this encounter Visit Diagnoses Diagnosis Ischemic Heart Chronic Disease - Primary Ischemic Heart Chronic Disease Atherosclerotic Heart Disease Of [place] Coronary Artery Without Angina Pectoris Coronary Stent Status Post Ischemic Heart Chronic Disease documented in this encounter Admitting Diagnoses Diagnosis Ischemic Heart Chronic Disease Atherosclerotic Heart Disease Of [place] Coronary Artery Without Angina Pectoris documented in this encounter Administered Medications Inactive Administered Medications - up to 3 most recent administrations Medication Order MAR Action Action Date Dose Rate Site aminophylline infusion 250 New Bag 11/14/2020 9:01 AM 750 mg/hr 7 50 mL/hr mg/250 mL NaCl 0.9% (Card Lacer Jacquard CDT Only) Continuous Infusion: Per Instructions PRN, Starting on Fri11/14/20 at 0901, Intraprocedure (CV) aspirin chewable tablet 81 mg Given 11/15/2020 8:33 AM CDT 81 mg 81 mg, oral, Daily, First dose on Fri11/15/20 at 0900 clopidogreL tablet 75 mg (PLAVIX) Given 11/15/2020 8:33 AM CDT 75 mg 75 mg, oral, Daily, First dose on Fri11/15/20 at 0900, Postprocedure (CV) ezetimibe tablet 10 mg (ZETIA) Given 11/14/2020 8:58 PM CDT 10 mg 10 mg, oral, Daily at bedtime, First dose on Fri11/14/20 at 2100, Postprocedure (CV) fentaNYL injection 25 mcg (SUBLIMAZE) Given 11/14/2020 9:56 AM CDT 25 mcg 25 mcg, intravenous, Every 2 min PRN, moderate pain or score 4-6 of 10, severe pain or score 7-10 of 10, Administer over 1 minute immediately prior to the procedure. May repeat every 2 minutes to a maximum of 200 mcg, until pain score of 3 or less, or until the patient meets the pain comfort goal. Do not give if respiratory rate is less than 8 breaths/minute, Starting on Fri11/14/20 at 0814, Intraprocedure (CV) Given 11/14/2020 9:32 AM CDT 25 mcg Given 11/14/2020 9:06 AM CDT 25 mcg heparin (porcine) 1,000 unit/mL Given 11/14/2020 9:37 AM CDT 2,0 00 Units injection As needed, Starting on Fri11/14/20 at 0834, Intraprocedure (CV) Given 11/14/2020 8:51 AM CDT 6,000 Units Given 11/14/2020 8:34 AM CDT 2,000 Units hydroCHLOROthiazide tablet 25 mg (HYDROD IURIL) Given 11/14/2020 8:59 PM CDT 25 mg 25 mg, oral, Daily at bedtime, First dose on Fri11/14/20 at 2100, Postprocedure (CV) iohexoL 350 mg iodine/mL solution Given 11/14/2020 10:02 AM CDT 140 mL (OMNIPAQUE) As needed, Starting on Fri11/14/20 at 1002, Intraprocedure (CV) isosorbide mononitrate 24 hr tablet 30 mg Given 11/15/2020 8:33 AM CDT 30 mg (IMDUR) 30 mg, oral, Daily, First dose on Fri11/15/20 at 0900, Postprocedure (CV), Do NOT crush or chew. Tablet may be split on score if needed. lidocaine 10 mg/mL (1 %) injection Given 11/14/2020 8:24 AM CDT 5 mL Right Groin (XYLOCAINE) As needed, Starting on Fri11/14/20 at 0824, Intraprocedure (CV) lisinopriL tablet 20 mg (PRINIVIL,ZESTRI L) Given 11/15/2020 8:33 AM CDT 20 mg 20 mg, oral, Daily, First dose on Fri11/15/20 at 0900, Postprocedure (CV), lisinopril 20 mg oral daily was interchanged for ramipril metoprolol tartrate tablet 25 mg (LOPRES SOR) Given 11/15/2020 8:33 AM CDT 25 mg 25 mg, oral, 2 times daily, First dose on Fri11/14/20 at 2100, Postprocedure (CV) Given 11/14/2020 8:59 PM CDT 25 mg midazolam (PF) injection 0.5 mg (VERSED) Given 11/14/2020 8:26 AM CDT 0.5 mg 0.5 mg, intravenous, Once as needed, sedation, Starting on Fri11/14/20 at 0814, For 1 dose, Intraprocedure (CV) midazolam (PF) injection 0.5 mg (VERSED) Given 11/14/2020 9:46 AM CDT 0.5 mg 0.5 mg, intravenous, Every 2 min PRN, sedation, RASS -1, Starting on Fri11/14/20 at 0814, Intraprocedure (CV), May repeat every 2 minutes for a maximum of 5 mg. Do not give if respiratory rate is less than 8 breaths/minute. Given 11/14/2020 9:13 AM CDT 0.5 mg Given 11/14/2020 8:55 AM CDT 0.5 mg nitroglycerin in D5W 100 mcg/mL syringe (for Given 9:55 AM CDT 200 mcg intra-arterial use only) As needed, Starting on Fri11/14/20 at 0955, Intraprocedure (CV) rosuvastatin tablet 40 mg (CRESTOR) Given 11/14/2020 8:58 PM CDT 40 mg 40 mg, oral, Daily at bedtime, First dose on Fri11/14/20 at 2100, Postprocedure (CV) sertraline tablet 100 mg (ZOLOFT) Given 11/14/2020 8:59 PM CDT 100 mg 100 mg, oral, Daily at bedtime, First dose on Fri11/14/20 at 2100, Postprocedure (CV) verapamiL 24 hr capsule 180 mg (VERELAN) Given 11/14/2020 8:59 PM CDT 180 mg 180 mg, oral, Daily at bedtime, First dose on Fri11/14/20 at 2100, Postprocedure (CV), See tube feeding guidelines for tube feeding administration instructions. documented in this encounter Active and Recently Administered Medications Times are shown in CDT. Scheduled Medication Order 11/13/2020 11/14/2020 11/15/2020 aspirin chewable tablet 81 mg (Given - Provider: Annamaria Perez R.N.) 81 mg, oral, Daily, First dose on Fri11/15/20 at 0900 clopidogreL tablet 75 mg (PLAVIX) 832 (Given - Provider: Annamaria Perez R.N.) 75 mg, oral, Daily, First dose on Fri11/15/20 at 0900, Postproce dure (CV) ezetimibe tablet 10 mg (ZETIA) 2057 (Giv en - Provider: Binta Hale R.N.) 10 mg, oral, Daily at bedtime, First dos e on Fri11/14/20 at 2100, Postprocedure (CV) hydroCHLOROthiazide tablet 25 mg (HYDRODIURIL) 2058 (Given - Provider: Binta Hale R.N.) 25 mg, oral, Daily at bedtime, First dos e on Fri11/14/20 at 2100, Postprocedure (CV) isosorbide mononitrate 24 hr tablet 30 mg (IMDUR) 832 (Given - Provider: Annamaria Perez R.N.) 30 mg, oral, Daily, First dose on Fri at 0900, Postprocedure (CV), Do NOT crush or chew. Tablet may be split on score if needed. lisinopriL tablet 20 mg (PRINIVIL,ZESTRIL) 832 (Given - Provider: Annamaria Perez R.N.) 20 mg, oral, Daily, First dose on Fri at 0900, Postprocedure (CV), lisinopril 20 mg oral daily was interchanged for ramipril metoprolol tartrate tablet 25 mg (LOPRESSOR) 2058 (Given - Provider: Binta Hale R.N.) 08 (Given - Provider: Annamaria Perez R.N.) 25 mg, oral, 2 times daily, First dose o n Fri11/14/20 at 2100, Postprocedure (CV) rosuvastatin tablet 40 mg (CRESTOR) 2057 (Given - Provider: Daksha MoraN.) 40 mg, oral, Daily at bedtime, First dos e on Fri11/14/20 at 2100, Postprocedure (CV) sertraline tablet 100 mg (ZOLOFT) 2058 ( Given - Provider: Daksha MoraN.) 100 mg, oral, Daily at bedtime, First do se on Fri11/14/20 at 2100, Postprocedure (CV) verapamiL 24 hr capsule 180 mg (VERELAN) 2058 (Given - Provider: Binta Hale R.N.) 180 mg, oral, Daily at bedtime, First do se on Fri11/14/20 at 2100, Postprocedure (CV), See tube feeding guidelines for tube feeding administration instructions. PRN Medication Order 11/13/2020 11/14/2020 11/15/2020 acetaminophen tablet 1,000 mg (TYLENOL) 1,000 mg, oral, Every 6 hours PRN, mild pain or score 1-3 of 10, Starting on Fri11/14/20 at 1055, Postprocedure (CV) albuterol nebulizer solution 2.5 mg (ACCUNEB) 2.5 mg, nebulization, Every 4 hours PRN, wheezing, shortness of breath, Starting on Fri11/14/20 at 1328, Postprocedure (CV), Albuterol nebs were interchanged for albuterol/levalbuterol MDI (same frequency) aminophylline infusion 250 mg/250 mL NaCl 0.9% (Card Lacer Jacquard Onl y) (CANCELED) 900 (New Bag - Provider: Alyssa Sloan R.N., CCRN)09 (Stopped - Provider: Alyssa Sloan R.N., CCRN) Continuous Infusion: Per Instructions [place] N, Starting on Fri11/14/20 at 0901, Intraprocedure (CV) atropine injection 0.5 mg 0.5 mg, intravenous, Every 5 min PRN, va sovagal, Starting on Fri11/14/20 at 1055, For 4 doses, Postprocedure (CV) docusate sodium capsule 100 mg (COLACE) 100 mg, oral, 2 times daily PRN, constip ation, Starting on Fri11/14/20 at 1055, Postprocedure (CV), Do NOT crush or chew. fentaNYL injection 25 mcg (SUBLIMAZE) (CANCELED) 08 (Given - Provider: Alyssa Sloan R.N., CCRN)0830 (Given - Provider: Alyssa Sloan R.N., CCRN)0906 (Given - Provider: Alyssa Sloan R.N., CCRN)0932 (Given - Provider: Alyssa Sloan R.N., CCRN) 25 mcg, intravenous, Every 2 min PRN, mo derate pain or score 4-6 of 10, severe pain or score 7-10 of 10, Administer over 1 minute immediately prior to the procedure. May repeat every 2 minutes to a maxi 0956 ( Given - Provider: Alyssa Sloan R.N., CCRN) mum of 200 mcg, until pain score of 3 or less, or until the patient meets the pain comfort goal. Do not give if respiratory rate is less than 8 breaths/minute, Starting on Fri11/14/20 at 0814, Intraprocedure (CV) fentaNYL injection 25 mcg (SUBLIMAZE) 25 mcg, intravenous, Once as needed, mod erate pain or score 4-6 of 10, severe pain or score 7-10 of 10, Until sheath removal., Starting on Fri11/14/20 at 1055, For 1 dose, Postprocedure (CV) heparin (porcine) 1,000 unit/mL injection (CANCELED) 0834 (Given - Provider: Alyssa Sloan R.N., CCRN)0851 (Given - Provider: Alyssa Sloan R.N., CCRN)0937 (Given - Provider: Alyssa Sloan R.N., CCRN) As needed, Starting on Fri11/14/20 at 0834, Intraprocedure (CV) iohexoL 350 mg iodine/mL solution (OMNIPAQUE) (CANCELED) 1002 (Given - Provider: Dontae Rubio M.D.) As needed, Starting on Fri11/14/20 at 1002, Intraprocedure (CV) lidocaine 10 mg/mL (1 %) injection (XYLOCAINE) (CANCELED) 0824 (Given - Provider: Dontae Rubio M.D.) As needed, Starting on Fri11/14/20 at 0824, Intraprocedure (CV) midazolam (PF) injection 0.5 mg (VERSED) (COMPLETED) 0826 (Given - Provider: Alyssa Sloan R.N., CCRN) 0.5 mg, intravenous, Once as needed, sed ation, Starting on Fri11/14/20 at 0814, For 1 dose, Intraprocedure (CV) midazolam (PF) injection 0.5 mg (VERSED) (CANCELED) 0827 (Given - Provider: Alyssa Sloan R.N., CCRN)0855 (Given - Provider: Alyssa Sloan R.N., CCRN)0913 (Given - Provider: Alyssa Sloan R.N., CCRN)0946 (Given - Provider: Alyssa Sloan R.N., CCRN) 0.5 mg, intravenous, Every 2 min PRN, se dation, RASS -1, Starting on Fri11/14/20 at 0814, Intraprocedure (CV), May repeat every 2 minutes for a maximum of 5 mg. Do not give if respiratory rate is less than 8 breaths/minute. midazolam (PF) injection 1 mg (VERSED) 1 mg, intravenous, Every 2 hour PRN, anx iety, muscle spasms, Starting on Fri11/14/20 at 1055, For 2 doses, Postprocedure (CV), May repeat x1 dosing interval. Patient must be NPO for 2 hours prior to giving. Until sheath removal. naloxone injection 0.2 mg (NARCAN) 0.2 mg, intravenous, As needed, respirat ory depression, Starting on Fri11/14/20 at 1055, Postprocedure (CV), For RASS Score -4 or less, respiratory rate of less than 8 breaths/min. Notify provider/servi ce and rapid response team (if available at institution). nitroglycerin in D5W 100 mcg/mL syringe (for intra-arterial use only) (CANCELED) 0955 (Given - Provider: Dontae hwang M.D.) As needed, Starting on Fri11/14/20 at 0955, Intraprocedure (CV) nitroglycerin SL tablet 0.4 mg (NITROSTAT) 0.4 mg, sublingual, Every 5 min PRN, radha st pain, Starting on Fri11/14/20 at 1055, Postprocedure (CV), Notify prescriber if pain unrelieved after 2 doses. Do not administer if SBP is less than 90 mmHg. D o not administer if patient has document ed severe aortic stenosis, pulmonary arterial hypertension, obstructive hypertrophic cardiomyopathy, or those undergoing a coronary artery spasm study. Do not adm inister for patients receiving phosphodi esterace-5 (PDE5) inhibitors [e.g. sildenafil (VIAGRA, REVATIO)], tadalafil (CIALIS, ADCIRCA), vardenafil (LEVITRA), avanafil (STENDRA), or soluble guanylate cycl ase inhibitors [e.g. riociguat (ADEMPAS) ]. Do not order. Dissolve under the tongue. Do NOT crush, chew, split or swallow tablet., Indications: angina documented in this encounter Additional Health Concerns Infection Onset Date Last Indicated Resolved Time COVID19 Pending 11/14/2020 11/14/2020 11/14/2020 2:00 PM CDT Assessment Noted Time PHQ-9 Depression Total Score: 6 08/20/2012 4:08 PM CDT documented as of this encounter
--- OUTSIDE RECORDS SUMMARY | 2022-01-10 09:02 | XMS_ITS | Encounter Summary ---
:1950 Author Organization [facility] Address [address] [place] [address] Care Team Providers Name Role Phone Unavailable Primary Care Provider Unavailable Encounter Details Date Type Department Care Team Description 11/10/2020 Lab Urgent Care in [place], Venkata Mayen, Encounter For Preprocedural Laboratory Examination (COVID-19); [facility] Contact With And (Suspected) Exposure To COVID-19 [address] [facility] [address] [place] [id number] [place], [place] [phone] Social History Tobacco Use Types Packs/Day Years Used Date Smoking Tobacco: Former Cigarettes 0 0 06/0 08/1965 - 04/01/1979 Smokeless Tobacco: Never Alcohol Use Standard Drinks/Week Comments Yes 10 (1 standard drink = 0.6 oz pure alcoh ol) Alcohol Habits Answer Date Recorded How often do you have a drink containing 4 or more times a w ekwok 11/13/2021 alcohol? How many drinks containing alcohol [...] or relatives? How often do you attend congregation or More than 4 times per year 11/13/2021 hoahaoism services? Do you belong to any clubs or Yes 11/13/2021 organizations such as congregation groups, unions, fraternal or athletic groups, or [...] place to sleep or slept in a care home (including now)? Education Answer Date Recorded What is the highest level of school you have completed or 12 th grade 10/02/2020 the highest degree you have received? Sex Assigned at Date Recorded Female 05/03/2021 9:58 AM [employer] documented as of this encounter Plan of Treatment Not on filedocumented as of this encounter Visit Diagnoses Diagnosis Encounter For Preprocedural Laboratory E xamination (COVID-19) Contact With And (Suspected) Exposure To COVID-19 documented in this encounter Additional Health Concerns Infection Onset Date Last Indicated Resolved Time COVID19 Pending 11/10/2020 11/10/2020 11/11/2020 4:59 PM CDT Assessment Noted Time PHQ-9 Depression Total Score: 6 08/20/2012 4:08 PM CDT documented as of this encounter
--- OUTSIDE RECORDS SUMMARY | 2022-01-10 09:02 | XMS_ITS | Encounter Summary ---
:1950 Author Organization [facility] Address [address] [place] [address] Care Team Providers Name Role Phone Unavailable Primary Care Provider Unavailable Reason for Visit Outpatient (Routine) - Closed Specialty Diagnoses / Procedures Referred By Contact Refer red To Contact Pulmonary Medicine Diagnoses Ischemic Heart Chronic Disease Hyperlipidemia On Treatment Elevated Lipoprotein A Impaired Fasting Glucose Apnea Sleep Obstructive Dyspnea Multifactorial Venkata Mayen [place] Moreno [address] [place] [address] Referral ID Status Reason Start Date Expiration Date Visits V isits Requested Authorized [id number] Closed Specialty 10/03/2020 10/03/2021 1 1 Services Required Encounter Details Date Type Department Care Team Description 10/09/2020 Comprehensive Visit Division of [place] Dyspnea Multifactorial (Primary Dx); Pulmonary Medicine Radha Knapp [facility] [place] [address] [place] [address] Elevated Lipoprotein A; [address] [place] [address] Impaired Fasting Glucose; [place] [address] Apnea Sleep Obstructive [id number] [phone] Social History Tobacco Use Types Packs/Day Years Used Date Smoking Tobacco: Former Cigarettes 0 0 06/0 08/1965 - 04/01/1979 Smokeless Tobacco: Never Alcohol Use Standard Drinks/Week Comments Yes 10 (1 standard drink = 0.6 oz pure alcoh ol) Alcohol Habits Answer Date Recorded How often do you have a drink containing 4 or more times a w [place] 11/13/2021 alcohol? How many drinks containing alcohol [...] More than 4 times per year 11/13/2021 yarsani services? Do you belong to any clubs or Yes 11/13/2021 organizations such as congregation groups, unions, fraBuzz Referrals or athletic groups, or school groups? 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 - 10/09/2020 10:00 AM CDT SUBJECTIVE REASON FOR CONSULT Shortness of breath. REFERRAL SOURCE Dr. Venkata Rivera Askew. HISTORY OF PRESENT ILLNESS Mrs. Collins is a pleasant 70-year-old woman with a past medical history of coronary artery disease status post stent placement, obstructive sleep apnea on CPAP, and obesity, coming for evaluation of exertional shortness of breath. The patient notes that she has had worsening shortness of breath over the past year. She will have intermittent wheezing and has occasionally used albuterol. She does feel the albuterol helps. She has never been diagnosed with COPD or asthma. She did smoke for approximately 20 years and quit in 1979. She has not had any respiratory infections. She has gained 4.6 kg since her prior [facility] evaluations. She does not do regular exercise. She admits to being less active over the last year. She notices her shortness of breath primarily when walking. She has not had chest pain. She is not short of breath at rest. She recently had an episode in which she was walking very fast to get to the restroom. Upon arriving there, she was very short of breath and had to lean forward in order to catch her breath. She does have occasional cough productive of clear phlegm. This is generally worse in the morning.She had some coughing after the pulmonary function test. She is compliant with her CPAP. She does not get short of breath at night. She does not snore through the mask as far as she knows. She was seenby her molder setter and is planned to have a cardiac stress test later today. The patient had a pulmonary function test with methacholine challenge in 2014. The methacholine challenge was negative. Pulmonary function testing today shows normal spirometry. There is no bronchodilator response. Diffusing capacity is normal. Chest x-ray shows no clear parenchymal changes. MEDICAL HISTORY Medical history is significant for obstructive sleep apnea on CPAP, hypertensive heart disease, coronary artery disease, hyperlipidemia, impaired fasting glucose, obesity, breast cancer. SOCIAL HISTORY She is a former smoker and quit in 1979. She smoked for approximately 20 years. FAMILY HISTORY Significant for several family members with coronary artery disease. She also has several family members with breast cancer. Current Outpatient Medications: ??? albuterol 90 mcg/actuation inhaler, Inhale 2 puffs every 4 (four) hours as needed., Disp: , Rfl: ??? aspirin 325 mg tablet, Take 1 tablet by mouth daily., Disp: , Rfl: ??? calcium carbonate (CALCIUM 500 ORAL), Take 2 tablets by mouth., Disp: , Rfl: ??? cholecalciferol (VITAMIN D3) 2,000 Unit capsule, Take 2,000 Units by mouth., Disp: , Rfl: ??? ezetimibe (ZETIA) 10 mg tablet, , Disp: , Rfl: ??? hydroCHLOROthiazide (HYDRODIURIL) 25 mg tablet, 2 tablets (50 mg total) daily., Disp: , Rfl: ??? isosorbide mononitrate (IMDUR) 30 mg 24 hr tablet, Take 1 tablet (30 mg total) by mouth daily., Disp: 30 tablet, Rfl: 11 ??? metoprolol tartrate (LOPRESSOR) 25 mg tablet, Take 1 tablet (25 mg total) by mouth 2 (two) timesa day., Disp: , Rfl: ??? nitroglycerin (NITROSTAT) 0.4 mg SL tablet, Place 0.4 mg under the tongue., Disp: , Rfl: ??? ramipril (ALTACE) 5 mg capsule, , Disp: , Rfl: ??? rosuvastatin (CRESTOR) 40 mg tablet, Take 1 tablet by mouth daily., Disp: , Rfl: ??? sertraline (ZOLOFT) 100 mg tablet, Take 1 tablet by mouth daily., Disp: , Rfl: ??? verapamil (VERELAN) 180 mg 24 hr capsule, Take 1 capsule by mouth daily., Disp: , Rfl: No current facility-administered medications for this visit. OBJECTIVE Temp 36.1 ??C (Temporal) SpO2 96% PHYSICAL EXAMINATION General: Pleasant woman in no acute distress. Eyes: No scleral icterus. ENT: Oropharynx moist without erythema. Crowded Mallampati 4 airway. Lymph: No cervical or supraclavicular adenopathy. Heart: S1, S2. No murmurs, rubs, or gallops. Lungs: Clear to auscultation bilaterally. Extremities: Trace edema. ASSESSMENT / PLAN #1 Dyspnea on exertion #2 Coronary artery disease The patient's pulmonary function testing is entirely normal. I think it is unlikely that she has asthma or COPD contributing to her respiratory symptoms. Her methacholine challenge was previously borderline but should be noted that it was negative. She was not on any inhaler therapy at that time. I donot think that her shortness of breath is pulmonary related. Her chest x-ray is also clear. I did recommend that she continue to complete her cardiac stress test as is already planned. We also discussed the importance of weight loss and physical activity. If her cardiac workup is unrevealing, we couldconsider repeating a methacholine challenge, but I will defer that at this time. Patient will contact me if she requests further evaluation after her cardiac testing has been completed. Radha Knapp M.D. CT CT Job ID: [id number] documented in this encounter Plan of Treatment Not on filedocumented as of this encounter Visit Diagnoses Diagnosis Dyspnea Multifactorial - Primary Ischemic Heart Chronic Disease Hyperlipidemia On Treatment Elevated Lipoprotein A Impaired Fasting Glucose Apnea Sleep Obstructive documented in this encounter Additional Health Concerns Assessment Noted Time PHQ-9 Depression Total Score: 6 08/20/2012 4:08 PM CDT documented as of this encounter
--- OUTSIDE RECORDS SUMMARY | 2022-01-10 09:02 | XMS_ITS | Encounter Summary ---
:1950 Author Organization [facility] Address [address] [place] [address] Care Team Providers Name Role Phone Unavailable Primary Care Provider Unavailable Encounter Details Date Type Department Care Team Description 11/14/2020 Orders Only Department of Cardiovascular Manuel Marie, Medicine in [place], NOC ANALYST, C.N .P., D.N.P. [address] [place] [phone] (Wo rk) Social History Tobacco Use Types Packs/Day Years Used Date Smoking Tobacco: Former Cigarettes 0 0 /0 08/1965 - 04/01/1979 Smokeless Tobacco: Never Alcohol Use Standard Drinks/Week Comments Yes 10 (1 standard drink = 0.6 oz pure alcoh ol) Alcohol Habits Answer Date Recorded How often do you have a drink containing 4 or more times a w [place] 11/13/2021 alcohol? How many drinks containing alcohol [...] More than 4 times per year 11/13/2021 quaker services? Do you belong to any clubs [...] place to sleep or slept in a long-term (including now)? Education Answer Date Recorded What is the highest level of school you have completed or 12 th grade 10/02/2020 the highest degree you have received? 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
--- OUTSIDE RECORDS SUMMARY | 2022-01-10 09:02 | XMS_ITS | Encounter Summary ---
:[address] [facility] Address [address] [place] [address] Care Team Providers Name Role Phone Unavailable Primary Care Provider Unavailable Reason for Visit Reason Comments Returned Dr. Mayen's call Encounter Details Date Type Department Care Team Description 10/13/2020 Clinical Department of Venkata Mayen Returned Dr. Mills Cardiovascular Tiffanie Rivera's call Medicine in [address] [place] [phone] Social History Tobacco Use Types Packs/Day Years Used Date Smoking Tobacco: Former Cigarettes 0 0 06/0 08/1965 - 04/01/1979 Smokeless Tobacco: Never Alcohol Use Standard Drinks/Week Comments Yes 10 (1 standard drink = 0.6 oz pure alcoh ol) Alcohol Habits Answer Date Recorded How often do you have a drink containing 4 or more times a w [place] 11/13/2021 alcohol? How many drinks containing alcohol [...] or relatives? How often do you attend hoahaoism or More than 4 times per year 11/13/2021 denominational services? 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 Mayen's call Name of caller/relationship to the patient: Dr. Parson, PCP Patient expects communication via portal: No Phone number: [phone] (ask for Dr. Parson) Request topic and what needs to be addressed? Other ?? Goal or summary: Returned call to Dr. Mayen; please return her call. ?? Additional comments: If she does not get a call back from Dr. Mayen, Dr. Parson will attempt toreach him again next week. documented in this encounter Plan of Treatment Not on filedocumented as of this encounter Visit Diagnoses Not on filedocumented in this encounter Additional Health Concerns Assessment Noted Time PHQ-9 Depression Total Score: 6 08/20/2012 4:08 PM CDT documented as of this encounter
--- OUTSIDE RECORDS SUMMARY | 2022-01-10 09:02 | XMS_ITS | Encounter Summary ---
:1950 Author Organization [facility] Address [address] [place] [address] Care Team Providers Name Role Phone Unavailable Primary Care Provider Unavailable Encounter Details Date Type Department Care Team Description 10/10/2020 Orders Only Department of Cardiovascular Venkata Mayen, Medicine in [address] [place] [phone] (Wo rk) Social History Tobacco Use Types Packs/Day Years Used Date Smoking Tobacco: Former Cigarettes 0 0 08/1965 - 04/01/1979 Smokeless Tobacco: Never Alcohol Use Standard Drinks/Week Comments Yes 10 (1 standard drink = 0.6 oz pure alcoh ol) Alcohol Habits Answer Date Recorded How often do you have a drink containing 4 or more times a w [place] 11/13/2021 alcohol? How many drinks containing alcohol [...] or relatives? How often do you attend synagogue or More than 4 times per year 11/13/2021 buddhist services? 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
--- OUTSIDE RECORDS SUMMARY | 2022-01-10 09:02 | XMS_ITS | Encounter Summary ---
:1950 Author Organization [facility] Address [address] [place] [address] Care Team Providers Name Role Phone Unavailable Primary Care Provider Unavailable Encounter Details Date Type Department Care Team Description 11/10/2020 Hospital Encounter Department of Venkata Mayen Ischemic Heart Laboratory Medicine Tiffanie Rivera Chronic Disease in [address] [address] [place], [place] [phone] (Work) [phone] Social History Tobacco Use Types Packs/Day Years Used Date Smoking Tobacco: Former Cigarettes 0 0 06/0 08/1965 - 04/01/1979 Smokeless Tobacco: Never Alcohol Use Standard Drinks/Week Comments Yes 10 (1 standard drink = 0.6 oz pure alcoh ol) Alcohol Habits Answer Date Recorded How often do you have a drink containing 4 or more times a w [place] 11/13/2021 alcohol? How many drinks containing alcohol [...] or relatives? How often do you attend latter day or More than 4 times per year 11/13/2021 oriental orthodox services? 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 calcium carbonate (CALCIUM Take 2 tablets by 0 500 ORAL) mouth daily. cholecalciferol (VITAMIN D3) Take 2,000 Units 0 2,000 Unit capsule by mouth daily. ezetimibe (ZETIA) 10 mg Take 10 mg by 0 9 tablet mouth at bedtime. nitroglycerin (NITROSTAT) Place 0.4 mg 0 0.4 [...] 6 months pos PCI on 11/14/20. aspirin 325 mg tablet Take 1 tablet by 0 06/09/19 13 11/15/2020 mouth daily. aspirin 81 mg chewable Chew 1 tablet (81 0 202012/28/2020 tablet mg total) daily. clopidogreL (PLAVIX) 75 mg Take 1 tablet (75 30 tablet 11 11/15/2020 tablet mg total) by mouth daily. Take 300 mg (4 tablets on 11/13/2020) followed by 75 mg daily hydroCHLOROthiazide 1 tablet (25 mg 0 11/07/2020 05/09/2021 (HYDRODIURIL) 25 mg tablet total) daily. isosorbide mononitrate Take 1 tablet (30 30 tablet 11 202011/15/2020 (IMDUR) 30 mg 24 hr tablet mg total) by mouth daily. metoprolol tartrate Take 1 tablet (25 0 9 01/09/2021 (LOPRESSOR) 25 mg tablet mg total) by mouth 2 (two) times a day. ramipril (ALTACE) 5 mg Take 5 mg by 0 07/31/2018 01/09/2021 capsule mouth at bedtime. verapamil (VERELAN) 180 mg Take 1 capsule by 0 05/09/2021 24 hr capsule mouth at bedtime. documented as of this encounter Plan of Treatment Not on filedocumented as of this encounter Procedures Procedure Name Priority Date/Time Associated Diagnosis Comme nts CBC WITH Routine 11/10/2020 12:54 PM Ischemic Heart Result s for this DIFFERENTIAL, B CDT Chronic Disease procedure are in the results section. MAGNESIUM, S Routine 11/10/2020 12:54 PM Ischemic Heart Result s for this CDT Chronic Disease procedure ar e in the results section. BASIC METABOLIC Routine 11/10/2020 12:54 PM Ischemic Heart Res ults for this PANEL, S/P CDT Chronic Disease procedure ar e in the results section. documented in this encounter Results Magnesium (11/10/2020 12:54 PM CDT) P athologist Signature Magnesium, P 1.8 1.7 - 2.3 11/10/2020 [facility] mg/dL 1:31 PM CDT Specimen Anatomical Collection Method Collection Time Receive d Time (Source) Location / / Volume Laterality Blood (Blood, 11/10/2020 12:54 11/10/2020 1:00 Venous) PM CDT PM CDT Venkata Mayen M.D. LAB BLOOD ADD-ON Performing Organization Address City/State/ZIP Code Phon e Number [facility]- [address] [place] [address] [facility] [place] [address] System in [place] [address] [place] CBC with Differential, Blood (11/10/2020 12:54 PM CDT) P athologist Signature Hemoglobin 13.3 11.6 - 11/10/2020 [facility] 15.0 g/dL 1:04 PM CDT Hematocrit 41.7 35.5 - 11/10/2020 [facility] 44.9 % 1:04 PM CDT Erythrocytes 4.72 3.92 - 11/10/2020 [facility] 5.13 1:04 PM CDT x10(12)/L MCV 88.3 78.2 - 11/10/2020 [facility] 97.9 fL 1:04 PM CDT RBC Distrib Width 13.3 12.2 - 11/10/2020 [facility] 16.1 % 1:04 PM CDT Platelet Count 172 157 - 371 11/10/2020 [facility] x10(9)/L 1:04 PM CDT Leukocytes 9.1 3.4 - 9.6 11/10/2020 [facility] x10(9)/L 1:04 PM CDT Neutrophils 5.86 1.56 - 11/10/2020 [facility] 6.45 1:04 PM CDT x10(9)/L Lymphocytes 2.61 0.95 - 11/10/2020 [facility] 3.07 1:04 PM CDT x10(9)/L Monocytes 0.47 0.26 - 11/10/2020 [facility] 0.81 1:04 PM CDT x10(9)/L Eosinophils 0.09 0.03 - 11/10/2020 [facility] 0.48 1:04 PM CDT x10(9)/L Basophils 0.03 0.01 - 11/10/2020 [facility] 0.08 1:04 PM CDT x10(9)/L Specimen Anatomical Collection Method Collection Time Receive d Time (Source) Location / / Volume Laterality Blood (Blood, 11/10/2020 12:54 11/10/2020 1:00 Venous) PM CDT PM CDT J. Wells Askew M.D. LAB BLOOD ADD-ON Performing Organization Address City/State/ZIP Code Phon e Number [facility]- [address] [place] [address] [place] [address] System in [place] [address] (ABNORMAL) Basic Metabolic Panel (11/10/2020 12:54 PM CDT) P athologist Signature Potassium, P 4.5 3.6 - 5.2 11/10/2020 [facility] mmol/L 1:31 PM CDT Sodium, P 138 135 - 145 11/10/2020 [facility] mmol/L 1:31 PM CDT Chloride, P 97 (L) 98 - 107 11/10/2020 [facility] mmol/L 1:31 PM CDT Bicarbonate, P 31 (H) 22 - 29 11/10/2020 [facility] mmol/L 1:31 PM CDT Anion Gap, P 10 7 - 15 11/10/2020 [facility] 1:31 PM CDT BUN (Blood Urea 17 6 - 21 11/10/2020 [facility] Nitrogen), P mg/dL 1:31 PM CDT Creatinine 0.84 0.59 - 11/10/2020 [facility] 1.04 mg/dL 1:31 PM CDT eGFR-Black/Afri 80 >=60 11/10/2020 [facility] can Indian mL/min/BSA 1:31 PM CDT Comment: ----ADDITIONAL INFORMATION---- Estimated GFR calculated using the 2009 CKD_EPI creatinine equation. eGFR Non-Black/ 70 >=60 mL/min/BSA 1:31 PM CDT [facility] Comment: ----ADDITIONAL INFORMATION---- Estimated GFR calculated using the 2009 CKD_EPI creatinine equation. Calcium, Total, P 9.6 8.8 - 10.2 mg/dL 11/10/2020 1:31 PM CDT [facility] Glucose, P 161 (H) 70 - 140 mg/dL 11/10/2020 1:31 PM CDT [facility] Specimen Anatomical Collection Method Collection Time Receive d Time (Source) Location / / Volume Laterality Blood (Blood, 11/10/2020 12:54 11/10/2020 1:00 Venous) PM CDT PM CDT Authorizing Provider Result Kike Mayen M.D. LAB BLOOD ADD-ON Performing Organization Address City/State/ZIP Code Phon e Number [facility] [address] [place] [address] [place] [place] [address] System in [place] [address] documented in this encounter Visit Diagnoses Diagnosis [...]
--- OUTSIDE RECORDS SUMMARY | 2022-01-10 09:02 | XMS_ITS | Encounter Summary ---
:1950 Author Organization [facility] Address [address] [place] [address] Care Team Providers Name Role Phone Unavailable Primary Care Provider Unavailable Reason for Visit Reason Onset Date Comments Testing For Upper Respiratory Virus Symptoms 11/10/2020 Encounter Details Date Type Department Care Team Description 11/10/2020 External Outreach Department of Keturah Pleitez, Kelsey Meeks [facility] And Pediatrics in [place] (Suspected) [address] To COVID-19 (Primary [address] [place] [address] Dx) [place] [phone] Social History Tobacco Use Types Packs/Day Years Used Date Smoking Tobacco: Former Cigarettes 0 0 06/0 08/1965 - 04/01/1979 Smokeless Tobacco: Never Alcohol Use Standard Drinks/Week Comments Yes 10 (1 standard drink = 0.6 oz pure alcoh ol) Alcohol Habits Answer Date Recorded How often do you have a drink containing 4 or more times a w enterprise 11/13/2021 alcohol? How many drinks containing alcohol [...] More than 4 times per year 11/13/2021 latter day services? 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 - 11/10/2020 12:46 PM CDT Encounter created for symptomatic infectious disease screening with possible COVID, Influenza, RSV, and/or Group A Strep testing. documented in this encounter Plan of Treatment Not on filedocumented as of this encounter Procedures Procedure Name Priority Date/Time Associated Diagnosis Comme nts SARS CORONAVIRUS-2 Routine 11/10/2020 12:47 PM Contact With An d Results for this RNA, V CDT (Suspected) Exposure procedu re are in To COVID-19 the results section. documented in this encounter Results SARS Coronavirus-2 RNA, V Symptomatic (11/10/2020 12:47 PM CDT) [facility] Method Time Signature SARS-CoV-2 Swab, 11/11/2020 [facility] Specimen Nasopharynx 4:58 PM CDT Source SARS CoV-2 Undetected Undetected 11/11/2020 [facility] RNA, TMA 4:58 PM CDT Comment: SARS-CoV-2 RNA absent. This result does not rule out COVID-19 in the patient, as the sensitivity of the test depends o n the timing of the specimen collection and the quality of the specim en. Result should be correlated with patient's history and clinical presentat ion. ----ADDITIONAL INFORMATION---- This molecular amplification test was pe rformed using the Aptima SARS-CoV-2 assay ([employer] on the [employer] tem under emergency use authorization (EUA) by the U.S. Food and Drug Administ ration. Fact sheets for this EUA assay can be fo und at the following links: For Healthcare Providers: https://www.[place] a.gov/media/870680/download For Patients: https://www.fda.gov/media/ 471108/download Specimen Anatomical Collection Method Collection Time Receive d Time (Source) Location / / Volume Laterality Varies 11/10/2020 12:47 11/10/2020 9:35 (Nasopharynx) PM CDT PM CDT Keturah Pleitez D.O. LAB MICROBIOLOGY - GENERAL O RDERABLES Performing Organization Address City/State/[facility] Phon e Number [facility]- [address] [place] [phone] [facility] [place] [place] [address] System in [address] documented in this encounter Visit Diagnoses Diagnosis Contact With And (Suspected) Exposure To COVID-19 - Primary documented in this encounter Additional Health Concerns Infection Onset Date Last Indicated Resolved Time COVID19 Pending 11/10/2020 11/10/2020 11/10/2020 12:37 PM CDT COVID19 Pending 11/10/2020 11/10/2020 11/11/2020 4:59 PM CDT Assessment Noted Time PHQ-9 Depression Total Score: 6 08/20/2012 4:08 PM CDT documented as of this encounter
--- OUTSIDE RECORDS SUMMARY | 2022-01-10 09:02 | XMS_ITS | Encounter Summary ---
:1950 Author Organization [facility] Address [address] [place] [address] Care Team Providers Name Role Phone Unavailable Primary Care Provider Unavailable Encounter Details Date Type Department Care Team Description 10/03/2020 Lab Department of Laboratory Venkata Mayen, Encounter For Preprocedural Laboratory Examination (COVID-19); Medicine and Pathology, M.DAguilar Contact With And (Suspected) Exposure To COVID-19 [facility], in [address] [place] [address] [place] [phone] [place] [address] [phone] Social History Tobacco Use Types Packs/Day Years Used Date Smoking Tobacco: Former Cigarettes 0 0 06/0 08/1965 - 04/01/1979 Smokeless Tobacco: Never Alcohol Use Standard Drinks/Week Comments Yes 10 (1 standard drink = 0.6 oz pure alcoh ol) Alcohol Habits Answer Date Recorded How often do you have a drink containing 4 or more times a w [place] 11/13/2021 alcohol? How many drinks containing alcohol [...] More than 4 times per year 11/13/2021 worship services? 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 Contact With And (Suspected) Exposure To COVID-19 documented in this encounter Results SARS CoV-2 RNA, PCR, Varies Asymptomatic (10/03/2020 2:30 PM CDT) [facility] Method Time Signature SARS CoV-2 Swab, 10/03/2020 DTL RNA, PCR, Nasopharynx 6:45 PM CDT Source SARS CoV-2 Undetected Undetected 10/03/2020 DTL RNA, PCR 6:45 PM CDT Comment: SARS-CoV-2 RNA absent. This [...] Drug Administration an d is used per drainage design coordinator's instructions. Performance characteristics were verified by [facility] in a manner consistent with CLIA requirements. Visit the CDC website: https://www.cdc.g ov/coronavirus/ for the most recent guidelines on Coron avirus testing. Fact Sheet for Healthcare Providers: https://www.fda.gov/media/166232/downloa d Fact Sheet for Patients: https://www.fda.gov/media/885624/downloa d Specimen Anatomical Collection Method Collection Time Receive d Time (Source) Location / / Volume Laterality Varies 10/03/2020 2:30 PM 3:17 (Nasopharynx) CDT PM CDT Venkata Mayen M.D. LAB MICROBIOLOGY - GENERAL O RDERABLES Performing Organization Address City/State/ZIP Code Phon e Number [facility] [address] [place], [place] [address] [facility] [address] [facility] [address] [facility] documented in this encounter Visit Diagnoses Diagnosis Encounter For Preprocedural Laboratory E xamination (COVID-19) Contact With And (Suspected) Exposure To COVID-19 documented in this encounter Additional Health Concerns Infection Onset Date Last Indicated Resolved Time COVID19 Pending 10/03/2020 10/03/2020 10/03/2020 6:45 PM CDT Assessment Noted Time PHQ-9 Depression Total Score: 6 08/20/2012 4:08 PM CDT documented as of this encounter
--- OUTSIDE RECORDS SUMMARY | 2022-01-10 09:02 | XMS_ITS | Encounter Summary ---
:1950 Author Organization [facility] Address [address] [place] [address] Care Team Providers Name Role Phone Unavailable Primary Care Provider Unavailable Reason for Referral Outpatient (Routine) - Closed Specialty Diagnoses / Procedures Referred By Contact Refer red To Contact Diagnoses Coronary Stent Status Post Dontae Rubio [facility] [address] [place] [phone] [place] [address] Phone: [phone] Fax: Referral ID Status Reason Start Date Expiration Visits Visits Date Requested Authorized [id number] Closed Continuity of 11/14/2020 11/14/2021 1 1 Care Encounter Details Date Type Department Care Team Description 11/14/2020 - Hospital [facility] Venkata Mayen M.D. [address] [place] [phone] Atherosclerotic Heart Disease Of [place] Coronary Artery Without Angina Pectoris (Primary Dx); 11/[facility] [address] [place] [phone] Ischemic Heart Chronic Disease; [facility] S tent Status Post [facility], Fifth Floor [address] [place] [phone] Social History Tobacco Use Types Packs/Day Years Used Date Smoking Tobacco: Former Cigarettes 0 0 /0 08/1965 - 04/01/1979 Smokeless Tobacco: Never Alcohol Use Standard Drinks/Week Comments Yes 10 (1 standard drink = 0.6 oz pure alcoh ol) Alcohol Habits Answer Date Recorded How often do you have a drink containing 4 or more times a w [place] 11/13/2021 alcohol? How many drinks containing alcohol [...] or relatives? How often do you attend samaritan or More than 4 times per year 11/13/2021 lutheran services? 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 - 11/15/2020 9:00 AM CDT CARDIOLOGY HOSPITAL DISCHARGE SUMMARY DATE OF ADMISSION: 11/14/2020 DATE OF DISCHARGE: 11/15/2020 Discharge Provider: Dontae Rubio M.D. 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 Please identify this service name if you call with questions after hospitalization. AttachmentsThe following attachments cannot be sent through Care Everywhere. Acetaminophen (By mouth) (Gibraltarian)documented in this encounter Medications at Time of [...] this encounter Progress Notes Lesvia Coates R.R.T., [place]. - 11/14/2020 10:20 PM CDT 11/14/20 0943 BPAP/CPAP Therapy BPAP/CPAP Interface Full face mask;Skin barrier BPAP/CPAP Interface Size Medium Skin barrier Liquid-filled membrane $BPAP/CPAP Yes Patient was placed on CPAP, AutoSet 5-15. Electronically signed by: Lesvia Coates R.R.T., Jodi 11/14/20 10:21 PM CDT documented in this [...] aminophylline infusion 250 mg/250 mL NaCl 0.9% (Flat Spring Assembler Only), As Directed PRN ??? aspirin chewable [...] Personal History #9 Atherosclerotic Heart Disease Of [place] Coronary Artery Without Angina Pectoris Recommendations: 1. [...] continue to follow closely. Anaid Marie APRN, C.N.P., D.N.P. 11/14/20 PATIENT EDUCATION: Learning needs assessment done. Barriers assessed (cultural, lutheran/spiritual, motivational, physical/cognitive, language, emotional). Ready to learn. Patient has no barriers. Explained diagnosis and treatment options. documented in this encounter Consult Notes Ryasa Grande RCEP - 11/14/2020 1:42 PM CDTAssociated Order(s): IP [...] discharge order and/or letter for program details. [place] [id number] 5. Appropriate referral information will be sent to the receiving cardiac rehabilitation program as applicable. Patient provided verbal authorization to send relevant materials to the cardiac rehab program. Recommend that the patient check with insurance company to verify coverage of the cost of cardiac rehabilitation program visits. Patient Education/Questionnaires sent via Patient Portal: None documented in this encounter Nursing Notes Annamaria ePrez R.N. - 11/15/2020 10:29 AM CDT Problem: [...] Patient is discharging home self care. Binta Hale R.N. - 11/15/2020 6:43 AM CDT Shift [...] PT VERBALIZES/DEMONSTRATES ADEQUATE COMFORT LEVEL OR BASELINE 11/15/2020 0643 by Binta Hale R.N. Outcome: Progressing 11/15/2020 0642 by Binta Hale R.N. Outcome: Progressing Problem: KNOWLEDGE DEFICIT Goal: Patient/family/caregiver demonstrates understanding of disease process, treatment plan, medications, and discharge instructions 11/15/2020 0643 by Hale, Binta N, R.N. Outcome: Progressing 11/15/2020 0642 by Binta Hale, R.N. Outcome: Progressing Problem: INFECTION - ADULT Goal: Absence of infection during hospitalization 11/15/2020 06 by Binta Hale, R.N. Outcome: Progressing 11/15/2020641 [...] by Binta Hale, R.N. Outcome: Progressing Problem: DISCHARGE PLANNING Goal: Patient discharge needs identified 11/15/2020642 by Binta Hale, R.N. Outcome: Progressing 11/15/2020641 by Binta Hale, R.N. Outcome: Progressing Problem: SAFETY ADULT - RISK FOR FALL AND OR FALL INJURY Goal: Patient remains free from fall/fall injury 11/15/2020642 by Binta Hale, R.N. Outcome: Progressing 11/15/2020641 by Binta Hale, R.N. Outcome: Progressing Problem: NEUROSENSORY - ADULT [...] Optimize urinary function Outcome: Progressing Annamaria Perez R.N. - 11/14/2020 5:42 PM CDT Problem: SKIN/TISSUE [...] with no complications. VSS. Plan for discharge [facility] tomorrow. Myah Tay R.R.TAguilar, L.R.T. - 11/14/2020 2:33 PM CDT Ms. [...] Implant Name Type Inv. Item Serial No. Emts Lot No. LRB No. Used Action STNT SYNERGY XD DE 3.50X38 - [id number] Cardiac Stent STNT SYNERGY XD DE 3.50X38 [employer] [id number] N/A 1 Implanted STNT SYNERGY XD DE 4.00X24 - [id number] Cardiac Stent STNT SYNERGY XD DE 4.00X24 [employer] [id number] N/A 1 Implanted Operators: 1. Dontae Rubio M.D. 2. Kameron Campos M.D. Indication: exertional dyspnea, abnormal stress echo, severe CAD Access Site(s): 1. Six Kisw[place]ili right femoral artery, sutured in place Complications: No Recommendations: -Aspirin 81mg daily indefinitely barring any complications -Clopidogrel 75 mg daily for 6 months as part of dual antiplatelet therapy from 11/14/20 -Overnight observation with plan for dismissal tomorrow Please see universal branch consultant cath operative report for further information. [...] Name Type Priority Associated Diagnoses Order S [facility] External referral Outpatient Referral Routine Coronary Stent O rdered: cardiac rehab Status Post 11/14/2020 program (non-[place]) documented as of this encounter Procedures Procedure [...] POC, V Asymptomatic (11/14/2020 1:38 PM CDT) [facility] Method Time Signature SARS Undetected Undetected 11/14/2020 DTLR Coronavirus-2 2:00 PM CDT , RNA, Rapid POC, V Comment: Negative for SARS-CoV-2. The Cue COVID-19 test is a molecular naz t for SARS-CoV-2, the virus that causes COVID- 19. A Negative result means that the Cue COV ID-19 test did not detect SARS-CoV-2 virus in your sample. Cue COVID-19 test uses the [employer] Mo nitoring System. This test has received Emergency Use Authorization (EUA) by the U.S. Food and Drug Administration (FDA) and is used per man ufacturer instructions. Performance characteristic s were verified by [facility] in a manner consistent with CLIA requirements. Fact sheets for this Emerg ency Use Authorization (EUA) can be found at the following links: Providers: https://Yappe.com/documentation/prov iders.pdf Patients: https://Yappe.com/documentation/julissa ents.pdf SARS Coronavirus 2, Source Nasopharynx DEFAULT 11/14/2020 2:00 PM CDT DTLR Specimen Anatomical Collection Method Collection Time Receive d Time (Source) Location / / Volume Laterality Varies 11/14/2020 1:38 PM 1:38 (Nasopharynx) CDT PM CDT Carmen Blackburn APRN C.N.P., D.N.P., M.S.N. LAB [facility] - GENERAL ORDERABLES Performing Organization Address City/State/ZIP Code Phon e Number PERFORMING LABS, REF [place] [address] INTERFACE Ref Interface [address] DTLR Performing Labs, [place] [address] (ABNORMAL) ACT (Activated Clotting Time), POCT (11/14/2020 11:10 AM CDT) athologist Signature Activated 163 (H) 84 - 139 11/14/2020 PCSM Clotting Time, sec 11:14 AM CDT POCT Specimen Anatomical Collection Method Collection Time Receive d Time (Source) Location / / Volume Laterality Blood 11/14/2020 11:10 11/14/2020 AM CDT 11:15 AM CDT Unknown Provider LAB POCT ORDERABLES - DEVICE Performing Organization Address City/[facility] Code Phon e Number POC RST [facility] INPATIENT [address] [place], [place] [address] LABS PCSM [facility] [place] [address] [place] POC [address] CORONARY ANGIOGRAPHY, PERCUTANEOUS CORONARY ANGIOPLASTY, CORONARY ATHERECTOMY, [...] / Volume Laterality Blood 11/14/2020 9:57 AM CDT 10:49 AM CDT Unknown Provider LAB POCT ORDERABLES - DEVICE Performing Organization Address City/[facility]/ZIP Code Phon e Number POC [facility] INPATIENT [address] [place], [place] [address] [place] [address] [facility] [address] [place] [address] (ABNORMAL) ACT (Activated Clotting Time), POCT (11/14/2020 9:01 AM CDT) P athologist Signature Activated 276 (H) 84 - 139 11/14/2020 PCSM Clotting Time, sec 10:46 AM CDT POCT Specimen Anatomical Collection Method Collection Time Receive d Time (Source) Location / / Volume Laterality Blood 11/14/2020 9:01 AM CDT 10:47 AM CDT Unknown Provider LAB POCT ORDERABLES - DEVICE Performing Organization Address [facility] Phon e Number POC [facility] INPATIENT [address] [place], [place] [address] [place] [address] [facility] [address] [place] [address] documented in this encounter Visit Diagnoses Diagnosis Ischemic Heart Chronic Disease - Primary Ischemic Heart Chronic Disease Atherosclerotic Heart Disease Of [place] Coronary Artery Without Angina Pectoris Coronary Stent Status Post Hypertensive Heart Disease Without Heart Failure Hyperlipidemia On Treatment Coronary Artery Disease Without Angina P ectoris Apnea Sleep Obstructive Obesity Body Mass Index 30-39.9 Adult Impaired Fasting Glucose Cancer Breast Personal History Atherosclerotic Heart Disease Of [place] Coronary Artery Without Angina Pectoris Ischemic Heart Chronic Disease documented in this encounter Admitting Diagnoses Diagnosis Ischemic Heart Chronic Disease Atherosclerotic Heart Disease Of [place] Coronary Artery Without Angina Pectoris documented in this encounter Administered Medications Inactive Administered Medications - up to 3 most recent administrations Medication Order MAR Action Action Date Dose Rate Site aspirin chewable tablet 81 mg Given 11/15/2020 [...] dose on Fri11/14/20 at 2100, Postprocedure (CV) hydroCHLOROthiazide tablet 25 mg (HYDROD IURIL) Given 11/14/2020 8:59 PM CDT 25 mg 25 mg, oral, Daily at bedtime, First dose on Fri11/14/20 at 2100, Postprocedure (CV) isosorbide mononitrate 24 hr tablet 30 mg Given 11/15/2020 8:33 AM CDT 30 mg (IMDUR) 30 mg, oral, Daily, First dose on Fri11/15/20 at 0900, Postprocedure (CV), Do NOT crush or chew. Tablet may be split on score if needed. lisinopriL tablet 20 mg (PRINIVIL,ZESTRI L) Given [...] Given 11/14/2020 8:59 PM CDT 25 mg rosuvastatin tablet 40 mg (CRESTOR) Given 11/14/2020 [...] 30 mg (IMDUR) 832 (Given - Provider: Daksha HerrmannNAguilar) 30 mg, oral, Daily, First dose on [...] 2058 (Given - Provider: Binta Hale R.N.) 832 (Given - Provider: Annamaira Perez R.N.) 25 mg, oral, 2 times daily, First dose o n Fri11/14/20 at 2100, Postprocedure (CV) rosuvastatin tablet 40 mg (CRESTOR) 2057 (Given - Provider: Binta Hale R.N.) 40 mg, oral, Daily at bedtime, First dos e on Fri11/14/20 at 2100, Postprocedure (CV) sertraline tablet 100 mg (ZOLOFT) 2058 ( Given - Provider: Binta Hale R.N.) 100 mg, oral, Daily at bedtime, [...] aminophylline infusion 250 mg/250 mL NaCl 0.9% (Flat Spring Assembler Onl y) (CANCELED) 0901 (New Bag - Provider: Alyssa Sloan R.N., CCRN)0907 (Stopped - Provider: Alyssa Sloan R.N., CCRN) Continuous Infusion: Per Instructions ME N, Starting on Fri11/14/20 at 0901, Intraprocedure [...] chew. fentaNYL injection 25 mcg (SUBLIMAZE) (CANCELED) 0826 (Given - Provider: Alyssa Sloan R.N., JANNAN)0830 (Given - Provider: Alyssa Sloan R.N., JANNAN)0906 (Given - Provider: Alyssa Sloan R.N., CCRN)0932 (Given - Provider: Alyssa Sloan R.N., JANNAN) 25 mcg, intravenous, Every 2 min PRN, mo derate pain or score 4-6 of 10, severe pain or score 7-10 of 10, Administer over 1 minute immediately prior to the procedure. May repeat every 2 minutes to a maxi 0956 ( Given - Provider: Alyssa Sloan R.N., JANNAN) mum of 200 mcg, until pain score [...] 0834 (Given - Provider: Alyssa Sloan R.N., JANNAN)0851 (Given - Provider: Alyssa Sloan R.N., JANNAN)0937 (Given - Provider: Alyssa Sloan R.N., CCRN) [...] midazolam (PF) injection 0.5 mg (VERSED) (COMPLETED) 825 (Given - Provider: Alyssa Sloan R.N., CCRN) 0.5 mg, intravenous, Once as needed, sed ation, Starting on Fri11/14/20 at 0814, For 1 dose, Intraprocedure (CV) midazolam (PF) injection 0.5 mg (VERSED) (CANCELED) 826 (Given - Provider: Alyssa Sloan R.N., CCRN)0855 (Given - Provider: Alyssa Sloan R.N., CCRN)09 (Given - Provider: Alyssa Sloan R.N., CCRN)0946 [...] mcg/mL syringe (for intra-arterial use only) (CANCELED) 954 (Given - Provider: Dontae hwang M.D.) As [...]
--- OUTSIDE RECORDS SUMMARY | 2022-01-10 09:02 | XMS_ITS | Encounter Summary ---
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 How many drinks containing alcohol [...] place to sleep or slept in a half-way (including now)? Education Answer Date Recorded What is the highest level of school you have completed or 12 th grade 10/02/2020 the highest degree you have received? 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 Mayen, Patient calls in today asking about setting up her angio to be done. They cancelled her colonoscopy and are skipping it until next spring. Are you able to set up for her to get her angio done? Patient is active also Thank you, Ave documented in this encounter Plan of Treatment Not on filedocumented as of this encounter Visit Diagnoses Not on filedocumented in this encounter Additional Health Concerns Assessment Noted Time PHQ-9 Depression Total Score: 6 08/20/2012 4:08 PM CDT documented as of this encounter
--- OUTSIDE RECORDS SUMMARY | 2022-01-10 09:02 | XMS_ITS | Encounter Summary ---
:1950 Author Organization [facility] Address [address] [place] [address] Care Team Providers Name Role Phone Unavailable Primary Care Provider Unavailable Reason for Visit Appointment Request (Routine) - Closed Specialty Diagnoses / Procedures Referred By Contact Refer red To Contact Cardiovascular Disease Referral ID Status Reason Start Date Expiration Date Visits Requ ested Visits Authorized [id number] Closed 10/31/2020 10/31/2021 1 1 Encounter Details Date Type Department Care Team Description 11/07/2020 Virtual Visit Department of Venkata Mayen Hear t Cardiovascular Medicine Gus Rivera 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 How many drinks containing [...] or relatives? How often do you attend cheondoism or More than 4 times per year 11/13/2021 restoration services? Do you belong to any clubs or Yes 11/13/2021 organizations such as cheondoism groups, unions, fraternal or athletic groups, or [...] place to sleep or slept in a senior living (including now)? Education Answer Date Recorded What is the highest level of school you have completed or 12 th grade 10/02/2020 the highest degree you have received? 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 - 11/07/2020 11:00 AM CDT IJO-QUAS-NY-FACE PHONE VISIT A phone call care discussion in the setting of the national COVID19 pandemic was completed. HISTORY OF PRESENT ILLNESS Ivonne Collins is a 70 y.o. female who I last evaluated on 03 October 2020 for progressive exertional dyspnea in the context of chronic ischemic heart disease status post prior percutaneous coronary artery revascularization (elsewhere). As a result of the abnormal dobutamine stress echocardiogram her medical regimen was modified with the addition isosorbide mononitrate and overall she feels perhaps somewhat better but her exertional dyspnea has not significantly changed. She has not required any recentsublingual nitroglycerin. No new cardiopulmonary symptoms. She met with her primary care physician in [facility] and I spoke with Dr. Parson prior to that visit to update her on the results of the stress echocardiogram. 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 Cardiac medications include hydrochlorothiazide 25 mg daily, isosorbide mononitrate 30 mg daily, metoprolol tartrate 25 mg twice daily, ramipril 5 mg daily, verapamil 180 mg daily, rosuvastatin 40 mg daily, ezetimibe 10 mg daily, aspirin 325 mg daily, and nitroglycerin sublingual as needed. DIAGNOSTICS I have personally reviewed the patient's available current laboratory, imaging, and other diagnosticstudies. Laboratory last month with normal complete blood count differential, normal sodium and potassium with creatinine 0.75 mg/dL (mildly reduced chloride and mildly increased bicarbonate in the context of hydrochlorothiazide). Normal liver function tests. N terminal proBNP 243 pg/mL. Total cholesterol 116, HDL 38, LDL 58 and triglycerides 100 mg/dL. Hemoglobin A1c 6.2%. Creatine kinase normal at 89. Electrocardiogram with sinus rhythm at 69 beats per minute without concerning ST segment or T-wave changes. Echocardiogram with normal biventricular size and systolic function with calculated LV ejection fraction 59%. Estimated RV systolic pressure 39 mm Hg. Severe left atrial enlargement with LA volume index 50 ml/m^2. Mildly calcified aortic valve with trivial stenosis and no regurgitation (meangradient 7 mm Hg). Severely calcified mitral annulus with bulky calcification below the medial commissure. Moderately thickened and partially calcified mitral leaflets. Moderately thickened mitral chordae. Mild mitral stenosis and regurgitation with a diastolic mean Doppler gradient 4 mm Hg at a heartrate of 66 beats per minute. Inferior vena cava findings consistent with normal central venous pressure. Chest radiograph with mitral annular in vascular calcifications. Borderline enlarged cardiac silhouette. No change from August 2018. ASSESSMENT / PLAN #1 Progressive exertional dyspnea with abnormal dobutamine stress echocardiogram #2 Multivessel coronary artery disease #3 Status post percutaneous coronary artery revascularization (elsewhere) #4 Trivial aortic valve stenosis + bulky mitral annular calcification with mild mitral stenosis + regurgitation #5 Systemic hypertension #6 Hyperlipidemia with elevated lipoprotein (a) #7 Elevated fasting glucose with normal hemoglobin A1c #8 Obesity class 3 (BMI??>40 kg/m??) with metabolic syndrome #9 Obstructive sleep apnea, treated with CPAP #10 Status post right breast lumpectomy and radiation for infiltrating ductal carcinoma Mrs. Collins is tentatively scheduled to undergo diagnostic coronary angiography with potential revascularization on 14 November 2020. I did not make any changes to her medical regimen today. She will undergo updated laboratory work including SARS CoV-2 RNA PCR as well as a Cardiac catheterization laboratory nurse non [id number] visit on 10 November 2020. I highlighted some of the instructions which will be reiterated at the time of her CCL education visit including NPO status, medications, and possibility of same day dismissal (recommended low threshold for spending the night in [place] given her reported past history of access site bleeding elsewhere). We also discussed potential revascularization strategies with a focus on percutaneous coronary intervention if possible. A prescription was provided for clopidogrel with instruction that she take 300 mg on the morning of 13 November 2020 and 75 mgon the morning of 14 November 2020 with continuation of aspirin 325 mg daily until directed otherwise (will reduce to 81 mg daily if PCI + DAPT). I have asked her to contact me if she has any questions in the interim; otherwise I will plan on seeing her following the coronary angiogram. Patient Education: Ready to learn, no apparent learning barriers were identified; learning preferences include listening. Explained diagnosis and treatment plan; patient expressed understanding of the content. I believe all questions were answered. I spent 30 minutes reviewing records, testing, discussion and follow up. documented in this encounter Plan of Treatment Not on filedocumented as of this encounter Results Magnesium (11/10/2020 12:54 PM CDT) athologist Signature Magnesium, P 1.8 1.7 - 2.3 11/10/2020 [facility] mg/dL 1:31 PM CDT Specimen Anatomical Collection Method Collection Time Receive d Time (Source) Location / / Volume Laterality Blood (Blood, 11/10/2020 12:54 11/10/2020 1:00 Venous) PM CDT PM CDT Authorizing Provider Result Kike Mayen M.D. LAB BLOOD ADD-ON Performing Organization Address City/State/ZIP Code Phon e Number [facility] [place] [address] [address] [place] [address] System in [place] Mack CBC with Differential, Blood (11/10/2020 12:54 PM CDT) athologist Signature Hemoglobin 13.3 11.6 - 11/10/2020 [...] Organization Address City/State/ZIP Code Phon e Number [facility] Rukhsana [place], [place] [address] [address] [place] [address] System in [place] [address] [address] (ABNORMAL) Basic Metabolic Panel (11/10/2020 [...] CDT eGFR-Black/Afri 80 >=60 11/10/2020 [facility] can Mexican mL/min/BSA 1:31 PM CDT Comment: ----ADDITIONAL INFORMATION---- [...] 1:00 Venous) PM CDT PM CDT Venkata Mayne M.D. LAB BLOOD ADD-ON Performing Organization Address City/State/ZIP Code Phon e Number [facility]- Jazmine Biggsdavid [place] [address] [place] [address] System in [place] [address] documented in this encounter Visit Diagnoses Diagnosis Ischemic Heart Chronic Disease - Primary documented in this encounter Additional Health Concerns Assessment Noted Time PHQ-9 Depression Total Score: 6 08/20/2012 4:08 PM CDT documented as of this encounter
--- OUTSIDE RECORDS SUMMARY | 2022-01-10 09:02 | XMS_ITS | Encounter Summary ---
:1950 Author Organization [facility] Address [address] [place] [address] Care Team Providers Name Role Phone Unavailable Primary Care Provider Unavailable Reason for Referral Outpatient (Routine) - Closed Specialty Diagnoses / Procedures Referred By Contact Refer red To Contact Diagnoses Ischemic Heart Chronic Disease Hyperlipidemia On Treatment Elevated Lipoprotein A Impaired Fasting Glucose Apnea Sleep Obstructive Dyspnea Multifactorial Venkata Mayen M.D. [facility] Procedures Echo Stress [address] [place] [phone] Referral ID Status Reason Start Date Expiration Date Visits Requ ested Visits Authorized [id number] Closed 10/03/2020 10/03/2021 1 1 Reason for Visit Outpatient (Routine) - Closed Specialty Diagnoses / Procedures Referred By Contact Refer red To Contact Diagnoses Ischemic Heart Chronic Disease Hyperlipidemia On Treatment Elevated Lipoprotein A Impaired Fasting Glucose Apnea Sleep Obstructive Dyspnea Multifactorial Venkata Mayen M.D. [facility] Procedures Echo Stress [address] [place] [address] Referral ID Status Reason Start Date Expiration Date Visits Requ ested Visits Authorized [id number] Closed 10/03/2020 10/03/2021 1 1 Encounter Details Date Type Department Care Team Description 10/09/2020 Hospital Encounter Department of Venkata Mayen Ischemic Heart Chronic Disease; Cardiovascular Tiffanie Rivera Hyperlipidemia On Treatment; Diseases in [place], [address] [place] Lipoprotein A; [facility] Impaired Fasting Glucose; [address] [place], Apnea Sleep Obstructive; [place], [place] Dyspnea Multif actorial [phone] Social History Tobacco Use Types Packs/Day Years Used Date Smoking Tobacco: Former Cigarettes 0 0 06/0 08/1965 - 04/01/1979 Smokeless Tobacco: Never Alcohol Use Standard Drinks/Week Comments Yes 10 (1 standard drink = 0.6 oz pure alcoh ol) Alcohol Habits Answer Date Recorded How often do you have a drink containing 4 or more times a w [place] 11/13/2021 alcohol? How many drinks containing alcohol [...] or relatives? How often do you attend islam or More than 4 times per year 11/13/2021 mormonism services? 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 aspirin 325 mg tablet Take 1 tablet by 0 06/09/19 13 11/15/2020 mouth daily. hydroCHLOROthiazide 2 tablets (50 mg 0 09/02/2018 11/07/2020 (HYDRODIURIL) 25 mg tablet total) daily. metoprolol [...] Name Priority Date/Time Associated Diagnosis Comme nts ECHO STRESS 2D Routine 10/09/2020 1:51 PM Ischemic Heart Chron ic Results for this WITH COLOR, CDT Disease procedure are in DOPPLER AND Hyperlipidemia On the result s CONTRAST Treatment section. Elevated Lipopro tein A Impaired Fasting Glucose Apnea Sleep Obst ructive Dyspnea Multifactorial documented in this encounter Results ECHO STRESS 2D WITH COLOR, DOPPLER AND CONTRAST (10/09/2020 1:51 PM CDT) P athologist Signature Ejection 65 MC CV EIMS Fraction Wall Motion 1.00 MC CV EIMS Score Index WMSI At Rest 1.00 MC CV EIMS WMSI At Peak 1.19 MC CV EIMS Stress Anatomical Region Laterality Modality Echocardiography Specimen (Source) Anatomical Collection Method Collection Time Re ceived Time Location / / Volume Laterality 10/09/2020 12:32 PM CDT Impressions 10/09/2020 2:16 PM CDT STRESS TEST: ??Dobutamine was infused from 5 mcg/kg/min to 40.0 mcg/kg/min. ??A dose of 0.25 mg of atropine was administered. ??A peak h eart rate of 127 BPM was achieved (86 % age-predicted maximal HR). ??The test was terminated d ue to target heart rate achievement. ??The patient developed palpitations and headache. ??T he baseline ECG demonstrated sinus rhythm. ??The baseline ECG demonstrated APC's. ??With stress, t he ECG demonstrated <1mm J-point with rapidly upsloping S-T segments in the inferior lead(s). ?? APC's and VPC's present at stress. ??The stress ECG was negative for ischemia. ??Please see Nurs ing Notes for additional information. ??REST IMAGES: Please see previous transthoracic report of 10/03/2020 for details. ??Intravenous Lumason ultrasound enhancement agent(s) administ ered to enhance endocardial border definition. ??LEFT VENTRICLE: ??Normal left ventricular gaby mber size. ??No regional wall motion abnormalities. Indeterminate left ventricular filling p ressure (significant mitral valve disease). ??RIGHT VENTRICLE: ??Normal right ventricular ch becky size. ??Normal right ventricular systolic function. ATRIA: ??Severely enlarged left atrial size. ??Mild-moderately enlarged right atrial size by visual estimate. ??CARDIAC VALVES: ??Mil dly calcified aortic valve. ??Severely calcified mitral annulus. ??Moderately thickened mitral v alve. ??Mildly thickened tricuspid valve. ??OTHER ECHO FINDINGS: ??Normal inferior vena cava si ze with normal inspiratory collapse (>50%). ??No intracardiac mass or thrombus, but the l eft atrial appendage cannot be visualized adequately with transthoracic echo to exclude throm bus in this location. ??No pericardial effusion. ??STRESS IMAGES: ??Ejection fraction response fro m 65 % at rest to 75 % at peak stress. ??Left ventricular end-systolic volume decreased with stres s. ??New regional wall motion abnormalities following stress. For the complete report, see the Order-L evel Documents. Narrative 10/09/2020 2:16 PM CDT For the complete report, see the Order-L evel Documents. Final Impressions 1. Dobutamine stress echocardiogram posi tive for lateral myocardial ischemia (3 segments). 2. Ischemia developed at a heart rate of 120 BPM (ischemic threshold 81 %). 3. Ejection fraction response from 65 % at rest to 75 % at peak stress. 4. Left ventricular end-systolic volume decreased with stress. Comments Interpretation of the study was enhanced by review of the digital video images (TopCoder) - time stamp 7:20 min onwards. Procedure Note Rigo Lomas M.D. - 10/09/2020Form atting of this note might be different from the original. For the complete report, see the Order-L evel Documents. Final Impressions 1. Dobutamine stress echocardiogram posi tive for lateral myocardial ischemia (3 segments). 2. Ischemia developed at a heart rate of 120 BPM (ischemic threshold 81 %). 3. Ejection fraction response from 65 % at rest to 75 % at peak stress. 4. Left ventricular end-systolic volume decreased with stress. Comments Interpretation of the study was enhanced by review of the digital video images (TopCoder) - time stamp 7:20 min onwards. Findings STRESS TEST: Dobutamine was infused from 5 mcg/kg/min to 40.0 mcg/kg/min. A dose of 0.25 mg of atropine was administered. A peak hea rt rate of 127 BPM was achieved (86 % age-predicted maximal HR). The test was terminated due to target heart rate achievement. The patient developed palpitations and headache. The baseline ECG demonstrated sinus rhythm. The baseline ECG demonstrated APC's. With stress, the ECG demonstrated <1mm J-point with rapidly upsloping S-T segments in the inferior lead(s). AP C's and VPC's present at stress. The stress ECG was negative for ischemia. Please see Gail garrido Notes for additional information. REST IMAGES: Please see previous transthoracic report of 10/03/2020 for details. Intravenous Lumason ultrasound enhancement agent(s) administ ered to enhance endocardial border definition. LEFT VENTRICLE: Normal left ventricular chamb er size. No regional wall motion abnormalities. Indeterminate left ventricular filling p ressure (significant mitral valve disease). RIGHT VENTRICLE: Normal right ventricular thelma amilcar size. Normal right ventricular systolic function. ATRIA: Severely enlarged left atrial si ze. Mild-moderately enlarged right atrial size by visual estimate. CARDIAC VALVES: Mildly calcified aortic valve. Severely calcified mitral annulus. Moderately thickened mitral maylin ve. Mildly thickened tricuspid valve. OTHER ECHO FINDINGS: Normal inferior vena cava size with normal inspiratory collapse (>50%). No intracardiac mass or thrombus, but the l eft atrial appendage cannot be visualized adequately with transthoracic echo to exclude throm bus in this location. No pericardial effusion. STRESS IMAGES: Ejection fraction response from 65 % at rest to 75 % at peak stress. Left ventricular end-systolic volume decreased with stres s. New regional wall motion abnormalities following stress. For the complete report, see the Order-L evel Documents. Venkata Mayen M.D. CV ECHO PROCEDURES documented in this encounter Visit Diagnoses Diagnosis Ischemic Heart Chronic Disease Hyperlipidemia On Treatment Elevated Lipoprotein A Impaired Fasting Glucose Apnea Sleep Obstructive Dyspnea Multifactorial documented in this encounter Administered Medications Inactive Administered Medications - up to 3 most recent administrations Medication Order MAR Action Action Date Dose Rate Site atropine injection 0.25 mg Given 10/09/2020 1:56 PM CDT 0.25 mg 0.25 mg, intravenous, As needed, See protocol, Starting on Fri10/09/20 at 1347 DOBUTamine 1,000 mcg/mL in D5W 250 mL New Bag 10/09/2020 1:56 PM C DT 26.2 mg infusion 1-100 mg (DOBUTREX) 1-100 mg, intravenous, Once, On Fri10/09/20 at 1400, For 1 dose, Infusion rate: 5-40 mcg/kg/min - see protocol. 250 mg in 250 mL perflutren lipid microspheres injection Given 10/09/2020 1:57 PM CDT 4 mL (DEFINITY) intravenous, Once in imaging, contrast, Starting on Fri10/09/20 at 1347, For 1 dose, Standard concentration - perflutren lipid microsphere (DEFINITY) injection: To be administered for inclusion criteria that does not include an indication of myocardial perfusion. 1. Activate perflutren lipid microsphere by shaking the vial for 45 seconds using a Vialmix. 2. Draw up contents of vial into 10 mL syringe with 8.5 mL of 0.9% sodium chloride for a total of 10 mL. 3. Administer 0.5 mL IV push of the diluted solution. 4. Immediately flush with 0.9% sodium chloride over 10 seconds. 5. May repeat steps 3 and 4 until images are optimal or for a total of 10 mL of diluted solution being administered. See protocol. sodium chloride 0.9 % injection 10 mL Given 10/09/2020 1:57 PM CDT 10 mL 10 mL, intravenous, As needed, line care, Starting on Fri10/09/20 at 1346, Prior to and following infusion and between multiple consecutive infusions: sodium chloride 0.9 % injection documented in this encounter Additional Health Concerns Assessment Noted Time PHQ-9 Depression Total Score: 6 08/20/2012 4:08 PM CDT documented as of this encounter
--- OUTSIDE RECORDS SUMMARY | 2022-01-10 09:02 | XMS_ITS | Encounter Summary ---
:1950 Author Organization [facility] Address [address] [place] [address] Care Team Providers Name Role Phone Unavailable Primary Care Provider Unavailable Reason for Visit Reason Comments Palpitations Encounter Details Date Type Department Care Team Description 01/04/2021 Nurse Triage Department of [facility] Veronica Evans Pal [facility] Medicine, [facility] [place], in [place], [place] [address] [place] [address] Social History Tobacco Use Types Packs/Day Years Used Date Smoking Tobacco: Former Cigarettes 0 0 /0 08/1965 - 04/01/1979 Smokeless Tobacco: Never Alcohol Use Standard Drinks/Week Comments Yes 10 (1 standard drink = 0.6 oz pure alcoh ol) Alcohol Habits Answer Date Recorded How often do you have a drink containing 4 or more times a w [place] 11/13/2021 alcohol? How many drinks containing alcohol [...] or relatives? How often do you attend voodoo or More than 4 times per year 11/13/2021 orthodoxy services? 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 - 01/04/2021 8:24 AM CDT Chief Complaint / Reason for Call Patient is a 70 y.o. female calling regarding Palpitations. Assessment Concern: Patient reports she felt like her heart was pounding in her ears. She checked her blood pressure and her heart rate was 47. She checked again And pulse was 43. She reports she feels different, off She reports she did have stints placed about 1 month ago. Present for: This morning Home cares tried: Checked pulse and blood pressure Calling to request: If she should be seen The recommended disposition is Go to ED Now. Reason for Disposition ? ? Heart beating very slowly (e.g., < 50 / minute) (Exception: athlete and heart rate normal forcaller) Protocols used: HEART RATE AND HEARTBEAT [id number] Care Advice Patient/Caregiver understands and will follow care advice?: Yes, able to teach back GO TO ED NOW: * You need to be seen in the Emergency Department. * Go to the ED at Hospital. * Leave now. Drive carefully. NOTE TO TRIAGER - DRIVING: * Another adult should drive. * If immediate transportation is not available via car or taxi, then the patient should be instructed to call [id number]. ANOTHER ADULT SHOULD DRIVE: * It is better and safer if another adult drives instead of you. documented in this encounter Plan of Treatment Not on filedocumented as of this encounter Visit Diagnoses Not on filedocumented in this encounter Additional Health Concerns Assessment Noted Time PHQ-9 Depression Total Score: 6 08/20/2012 4:08 PM CDT documented as of this encounter
--- OUTSIDE RECORDS SUMMARY | 2022-01-10 09:02 | XMS_ITS | Encounter Summary ---
:1950 Author Organization [facility] Address [address] [place] [id number] Care Team Providers Name Role Phone Unavailable Primary Care Provider Unavailable Reason for Visit Reason Comments Post-procedure Encounter Details Date Type Department Care Team Description 11/15/2020 Documentation Department of Cardiovascular Venkata Mayen, Post-procedure Medicine in [address] [place] [id number] [phone] Social History Tobacco Use Types Packs/Day Years Used Date Smoking Tobacco: Former Cigarettes 0 0 06/0 08/1965 - 04/01/1979 Smokeless Tobacco: Never Alcohol Use Standard Drinks/Week Comments Yes 10 (1 standard drink = 0.6 oz pure alcoh ol) Alcohol Habits Answer Date Recorded How often do you have a drink containing 4 or more times a w kasaan 11/13/2021 alcohol? How many drinks containing alcohol [...] or relatives? How often do you attend adventist or More than 4 times per year 11/13/2021 holiness services? Do you belong to any clubs or Yes 11/13/2021 organizations such as adventist groups, unions, fraternal or athletic groups, or [...] at Date Recorded Female 05/03/2021 9:58 AM [employer] documented as of this encounter Progress Notes Venkata Mayen M.D. - 11/15/2020 8:08 AM CDT Post-procedure encounter: I visited with Mrs. Collins last evening following her coronary angiogram.At the time my evaluation she is hemodynamically stable and asymptomatic. No significant post-procedure complications. Coronary angiogram: The proximal right coronary artery had an estimated 80% stenosis with an estimated 70% lesion within the previously stented mid right coronary artery. The left coronary circulation demonstrated [id number] disease with estimated 30 to 40% stenoses (see report for details). Rotational atherectomy of the ostial right coronary artery was performed with a 1.5 mm kaz (lesion pre-dilatation resulted in rupture of 2 semi-compliant balloons) followed by a 4 x 24 mm and a 3.5 x 38 mm Synergy-XD stent(s). Cardiac??medications??(pre-hospitalization) included hydrochlorothiazide 25 mg daily, isosorbide mononitrate 30 mg daily, metoprolol tartrate 25 mg twice daily, ramipril 5 mg daily, verapamil 180 mg daily, rosuvastatin 40 mg daily, ezetimibe 10 mg daily, aspirin 325 mg daily, and nitroglycerin sublingual as needed. Patient instructed to continue aspirin 81 mg daily + clopidogrel 75 mg daily for six months followed by monotherapy with aspirin 81 mg daily. She can also discontinue the isosorbide mononitrate and continue close monitoring of hemodynamics and symptoms. We also discussed the possibility of discontinuing the verapamil and increasing the metoprolol tartrate; however, she has done well on this regimen for >10 years and would prefer to continue. Additional follow-up recommendations include follow-up with primary care physician (Dr. Lorin Parson) with laboratory work to include complete blood count and basic metabolic panel within the next two weeks and enrollment in cardiac rehabilitation (cardiac rehabilitation consultation requested by [facility]). She will contact me if she has any questions or concerns otherwise I will plan on seeing her in approximately 6 months or sooner if [place]. Patient Education: Ready to learn, no apparent [...]
--- OUTSIDE RECORDS SUMMARY | 2022-01-10 09:03 | XMS_ITS | Encounter Summary ---
:1950 Author Organization [facility] Address [address] [place] [id number] Care Team Providers Name Role Phone Unavailable Primary Care Provider Unavailable Reason for Referral Outpatient (Routine) - Closed Specialty Diagnoses / Procedures Referred By Contact Refer red To Contact Diagnoses Ischemic Heart Chronic Disease Hyperlipidemia On Treatment Elevated Lipoprotein A Impaired Fasting Glucose Apnea Sleep Obstructive Dyspnea Multifactorial Venkata Mayen M.D. [facility] Procedures Echo Stress [address] [place] [phone] Referral ID Status Reason Start Date Expiration Date Visits Requ ested Visits Authorized [id number] Closed 10/03/2020 10/03/2021 1 1 utpatient (Routine) - Closed Specialty Diagnoses / Procedures Referred By Contact Refer red To Contact Pulmonary Medicine Diagnoses Ischemic Heart Chronic Disease Hyperlipidemia On Treatment Elevated Lipoprotein A Impaired Fasting Glucose Apnea Sleep Obstructive Dyspnea Multifactorial Venkata Mayen [place] [facility] [address] [place] [address] Referral ID Status Reason Start Date Expiration Date Visits V isits Requested Authorized [id number] Closed Specialty 10/03/2020 10/03/2021 1 1 Services Required Reason for Visit Appointment Request (Routine) - Closed Specialty Diagnoses / Procedures Referred By Contact Refer red To Contact Cardiovascular Disease Diagnoses Shortness Of Breath Gain Weight Pain Joint Referral ID Status Reason Start Date Expiration Date Visits Requ ested Visits Authorized [id number] Closed 08/25/2020 08/25/2021 1 1 Encounter Details Date Type Department Care Team Description 10/03/2020 Office Visit Department of Venkata Mayen Dyspnea Multif actorial (Primary Dx); Cardiovascular Medicine Gus Rivera Ischemic Heart Chronic Disease; 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 [address] [facility] Hyperlipidemia On Treatment; [address] [place], [place] Elevated Lipoprotein A; [place] [phone] Impaired Fasting Glucose; [phone] Apnea Sleep Obs tructive; (Work) Morbid Obesity Body Mass Index 40.0-44.9 Adult ([facility]) Social History Tobacco Use Types Packs/Day Years Used Date Smoking Tobacco: Former Cigarettes 0 0 06/0 08/1965 - 04/01/1979 Smokeless Tobacco: Never Alcohol Use Standard Drinks/Week Comments Yes 10 (1 standard drink = 0.6 oz pure alcoh ol) Alcohol Habits Answer Date Recorded How often do you have a drink containing 4 or more times a w [place] 11/13/2021 alcohol? How many drinks containing alcohol [...] More than 4 times per year 11/13/2021 religion services? 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 - 10/03/2020 1:00 PM CDT SUBJECTIVE HISTORY OF PRESENT ILLNESS Ivonne Collins is a 70 y.o. female who returns to [facility] Cardiovascular Medicine for further evaluation; our last consultation was in August 2018 (please see prior note for details). She has noted progressive exertional dyspnea with occasional episodic wheezing and over the past year has increased her albuterol use (improves symptoms). In retrospect she believes her exertional dyspnea has been slowly progressive since 2012 but more noticeable over the past 6 to 12 months. She doesnot endorse any chest discomfort and with the exception of exertional dyspnea does not appear to have other anginal equivalents. She denies dyspnea at rest, orthopnea, paroxysmal nocturnal dyspnea, sustained palpitations (describes one episode of palpitations approximately a month ago which lasted a few seconds in duration), lightheadedness, new peripheral edema, or syncope. Her weight has increased by 4.6 kg since our last visit. She has not been walking regularly; able to perform activities of daily living but does not participate in any more strenuous aerobic activity other than baseline daily activities. Remains compliant with CPAP. Earlier this year, began experiencing worsening lower extremity muscle aches for which she has been seeing a chiropractor and reports significant improvement. Recall that the details of her chronic ischemic heart disease or based on outside records reviewed at our May 2012 consultation: December 1999 underwent bare metal stent (3 x 13 mm) revascularization of the mid left anterior descending artery followed by drug-eluting stent revascularization in March (3.5 x 18 mm LAD), May (3.5 x 23 mm and 3.5 x 33 mm RCA), and July 2005 (3 x 28 mm OM1) followed by obtuse marginal angioplasty for restenosis in 2008. Cardiac medications include hydrochlorothiazide 50 mg daily, metoprolol tartrate 25 mg twice daily, ramipril 5 mg daily, verapamil 180 mg daily, rosuvastatin 40 mg daily, ezetimibe 10 mg daily, mg daily, and nitroglycerin sublingual as needed. REVIEW OF SYSTEMS Constitutional: Positive for fatigue and weight gain of more than 10 pounds. Skin: Positive for skin rash. Eyes: Positive for visual problems. ENT: Positive for difficulty hearing, persistent hoarse voice and sinus congestion. Respiratory: Positive for coughing up mucus (phlegm), dry cough, dyspnea and wheezing. Cardiovascular: Positive for swelling in the legs or feet and pain in the calf muscles when walking. Gastrointestinal: Positive for heartburn. Genitourinary: Positive for incontinence. Musculoskeletal: Positive for arthralgias, back pain, pain or stiffness in the joints, joint swelling and muscle pain/stiffness. Neurological: Positive for light-headedness, numbness or shooting pain in hands, arms, legs, or feet, excessive daytime sleepiness and loss of balance or tendency to fall easily. Psychiatric/Behavioral: Positive for excessive daytime sleepiness/tiredness, little interest or pleasure in doing things over past two weeks and feeling down, depressed, or hopeless over past two weeks. The following systems were negative: Hematologic The following portions of the patient's history were reviewed: allergies, current medications, family history, medical history, social history, surgical history and problem list. OBJECTIVE BP 124/66 (BP Location: Left arm, Patient Position: Sitting, Cuff Size: Large) Comment: BpTRU Pulse 63 Ht 158 cm Wt 104 kg BMI 41.54 kg/m?? PHYSICAL EXAMINATION General: Increased body habitus. Well groomed. No distress. Psychiatric: Normal mood and affect. Alert and oriented. Head: Normocephalic, atraumatic. Eyes: No xanthelasma or conjunctivitis. Neck: Normal jugular venous pressure. Carotid upstroke is preserved. No carotid bruit. No subclavianbruit. Heart: Apical impulse is not displaced nor sustained. No ventricular lift. Normal first and second heart sound. No S3 or S4. Rhythm is regular. Grade 1 early systolic murmur at right upper sternal border. No diastolic murmur. No systolic click. No pericardial rub. Lungs: Normal respiratory effort and air movement. Clear to auscultation bilaterally. No crackles, rhonchi, or wheezing. Abdomen: Positive bowel sounds. Soft and nontender. No rebound or guarding. Unable to reliably palpate liver and spleen size. No masses identified. No ascites detected. Enlargement of the abdominal aorta not detected by palpation. No abdominal bruits. Extremities: No clubbing or cyanosis. Lipidema but no pitting edema. Neurologic: No focal deficits appreciated on limited examination. Gait: No significant gait instability observed. Skin: No stasis dermatitis or ulceration identified in the visualized areas. DIAGNOSTICS I have reviewed the patient's current laboratory, imaging, and other diagnostic studies. Laboratory with normal complete blood count differential, normal sodium and potassium with creatinine 0.75 mg/dL(mildly reduced chloride and mildly increased bicarbonate in the context of hydrochlorothiazide). Normal liver function tests. N terminal proBNP 243 pg/mL. Total cholesterol 116, HDL 38, LDL 58 and triglycerides 100 mg/dL. Hemoglobin A1c 6.2%. Creatine kinase checked following our visit and was normalat 89. Electrocardiogram with sinus rhythm at 69 beats per minute without concerning ST segment or T-wave changes. Echocardiogram with normal biventricular size and systolic function with calculated LVejection fraction 59%. Estimated RV systolic pressure 39 mm Hg. Severe left atrial enlargement with LA volume index 50 ml/m^2. Mildly calcified aortic valve with trivial stenosis and no regurgitation (mean gradient 7 mm Hg). Severely calcified mitral annulus with bulky calcification below the medial co mmissure. Moderately thickened and partially calcified mitral leaflets. Moderately thickened mitral chordae. Mild mitral stenosis and regurgitation with a diastolic mean Doppler gradient 4 mm Hg at a heart rate of 66 beats per minute. Inferior vena cava findings consistent with normal central venous pr essure. Chest radiograph with mitral annular in vascular calcifications. Borderline enlarged cardiacsilhouette. No change from August 2018. ASSESSMENT / PLAN #1 Progressive exertional dyspnea #2 Multivessel coronary artery disease #3 Status post percutaneous coronary artery revascularization (elsewhere) The progressive exertional dyspnea may be multifactorial given her chronic ischemic heart disease, exercise induced left ventricular diastolic dysfunction + accentuation of mitral inflow obstruction, prior borderline positive methacholine challenge + nonspecific reduction in FEV1, progressive weight gain with class 3 obesity, and deconditioning. I will update her pulmonary function tests and request a Pulmonary review as to whether she would benefit from maintenance inhalation therapy rather than albuterol as needed. 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 Proceed with a dobutamine stress echocardiogram with a primary focus on myocardial ischemia. Defer hemodynamic exercise cardiopulmonary echocardiogram to assess cardiopulmonary limitations and mitral inflow obstruction/pulmonary hypertension for now. #4 Trivial aortic valve stenosis + bulky mitral annular calcification with mild mitral stenosis + regurgitation See above regarding symptom evaluation; no prior rheumatic valvular disease but did receive right breast radiation in 2012; will require longitudinal evaluation of her valvular heart disease. Severe left atrial enlargement but no evidence for paroxysmal atrial fibrillation. #5 Systemic hypertension Blood pressure well modified on her current regimen. #6 Hyperlipidemia with elevated lipoprotein (a) Lipid panel (LDL + triglycerides) with the exception of HDL is favorable. ??Continue rosuvastatin and ezetimibe. We have previously discussed screening family members regarding the lipoprotein (a) and she has relayed this information. She notes intermittent lower extremity symptomatology and perhaps this reflects her high-intensity statin; creatine kinase will be obtained. ?? #7 Elevated fasting glucose with normal hemoglobin A1c Hemoglobin A1c elevated today; recommend reviewing with primary care provider with additional focus on improving glycemic control through dietary modifications, weight loss if possible, and perhaps pharmacotherapy. 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 #9 Obstructive sleep apnea, treated with CPAP Reports CPAP compliance. #10 Status post right breast lumpectomy and radiation for infiltrating ductal carcinoma Patient Education: Ready to learn, no apparent learning barriers were identified; learning preferences include listening. Explained diagnosis and treatment plan; patient expressed understanding of the content. I believe all questions were answered. ADDENDUM: I spoke with Ivonne on 10 October 2020 and we reviewed the results of her pulmonary function tests, pulmonary consultation, and dobutamine stress echocardiogram. Pulmonary function testing demonstrated normal spirometry and diffusing capacity without immediate response to bronchodilator. The dobutamine stress echocardiogram was positive for lateral myocardial ischemia with ischemia developing a heart rate of 120 beats per minute (ischemic threshold 81%). Left ventricular end-systolic volume decreased with stress in left ventricular ejection fraction response from 65% at rest to 75% at peak stress. We discussed the findings on the dobutamine stress echocardiogram in the context of her exertional dyspnea as well as contrasted the strategies of optimizing medical therapy versus OMT + coronary angiography with potential revascularization. After careful consideration, she would like to proceed with c oronary angiography and possible percutaneous revascularization. She is scheduled for colonoscopy inAugust 2020 and in the past has had multiple colon polyps removed. As result, we will defer coronaryangiography until she has completed her colonoscopy given the likelihood of requiring polypectomy. She has remained on aspirin in the past around the time of her colonoscopy and I would recommend that she not discontinue aspirin. A prescription was provided for isosorbide mononitrate 30 mg every morning and she will reduce her evening dose of hydrochlorothiazide 25 mg daily to avoid symptomatic hypotension (she was asked to monitor her blood pressure on a frequent basis given these changes). Patient Education: Ready to learn, no apparent learning barriers were identified; learning preferences include listening. Explained diagnosis and treatment plan; patient expressed understanding of the content. I believe all questions were answered. documented in this encounter Plan of Treatment Scheduled Referrals Name Type Priority [facility] Diagnoses [facility]patient Routine Ischemic Heart Chronic 1 [facility] Medicine - Referral Disease starting 10/03/2020 General consult Hyperlipidemia On until 0 10/04/2023 (clinic) Treatment Elevated Lipopro tein A Impaired Fasting Glucose Apnea Sleep Obstructive Dyspnea Multifactorial documented as of this encounter Procedures Procedure Name Priority Date/Time Associated Diagnosis Comme nts CREATINE KINASE Routine 10/03/2020 10:13 Ischemic Heart Chroni c Results for this (CK), S AM CDT Disease procedure are in Hyperlipidemia On the result s Treatment section. Elevated Lipopro tein A Impaired [...] stress. For the complete report, see the [employer] Documents. Narrative 10/09/2020 2:16 PM CDT For the complete report, see the [employer] Documents. Final Impressions 1. Dobutamine stress echocardiogram [...] by review of the digital video images ([employer]) - time stamp 7:20 min onwards. Procedure Note Rigo Lomas M.D. - 10/09/2020Form atting of this note might be different from the original. For the complete report, see the [employer] Documents. Final Impressions 1. Dobutamine stress echocardiogram [...] by review of the digital video images ([employer]) - time stamp 7:20 min onwards. Findings [...] Documents. Venkata Mayen M.D. CV ECHO PROCEDURES Pulmonary Function Tests (10/09/2020 7:18 AM CDT) Analysis Performed At Patho logist Time Signature VC MAX POST 2.46 L 10/09/2020 [facility] 9:55 AM CDT SUITE PostFVC 2.35 L 10/09/2020 [facility] 9:55 AM CDT SUITE PostFEV1 1.80 L 10/09/2020 [facility] 9:55 AM CDT SUITE FEV1/FVC POST 76.37 % 10/09/2020 [facility] 9:55 AM CDT SUITE FEF 25-75 % 1.44 L/s 10/09/2020 [facility] POST 9:55 AM CDT SUITE PEF POST 5.51 L/s 10/09/2020 [facility] 9:55 AM CDT SUITE FET POST 11.23 sec 10/09/2020 [facility] 9:55 AM CDT SUITE DLCO SINGLE 15.33 ml/(min*mm 10/09/2020 [facility] BREATH POST Hg) 9:55 AM CDT SUITE DLCOC SINGLE 15.29 ml/(min*mm 10/09/2020 [facility] BREATH POST Hg) 9:55 AM CDT SUITE HB 13.50 g(Hb)/dL 10/09/2020 [facility] 9:55 AM CDT SUITE VA SINGLE 4.06 L 10/09/2020 [facility] BREATH POST 9:55 AM CDT SUITE VC MAX PRE 2.60 L 10/09/2020 [facility] 9:55 AM CDT SUITE FVC 2.53 L 10/09/2020 [facility] 9:55 AM CDT SUITE FEV1 1.80 L 10/09/2020 [facility] 9:55 AM CDT SUITE FEV1/FVC 70.99 % 10/09/2020 [facility] 9:55 AM CDT SUITE AFF51-76% 1.12 L/s 10/09/2020 [facility] 9:55 AM CDT SUITE PEF PRE 5.02 L/s 10/09/2020 [facility] 9:55 AM CDT SUITE FET PRE 11.81 sec 10/09/2020 [facility] 9:55 AM CDT SUITE SUBSTANCE POST Albuterol 10/09/2020 [facility] 9:55 AM CDT SUITE DOSE POST 2 Puff 10/09/2020 [facility] 9:55 AM CDT SUITE % PRED VC MAX 100 % % 10/09/2020 [facility] 9:55 AM CDT SUITE FVC% 97 % % 10/09/2020 [facility] 9:55 AM CDT SUITE FEV1% 89 % % 10/09/2020 [facility] 9:55 AM CDT SUITE % PRED 91 % % 10/09/2020 [facility] FEV1/FVC 9:55 AM CDT SUITE % PRED FEF 65 % % 10/09/2020 [facility] 25-75% 9:55 AM CDT SUITE % PRED PEF 96 % % 10/09/2020 [facility] 9:55 AM CDT SUITE PRED VC MAX 2.61 10/09/2020 [facility] 9:55 AM CDT SUITE PRED FVC 2.61 10/09/2020 [facility] 9:55 AM CDT SUITE PRED FEV 1 2.02 10/09/2020 [facility] 9:55 AM CDT SUITE PRED FEV1/FVC 78.0 10/09/2020 [facility] 9:55 AM CDT SUITE PRED FEF 1.71 10/09/2020 [facility] 25-75% 9:55 AM CDT SUITE PRED PEF 5.2 10/09/2020 [facility] 9:55 AM CDT SUITE PRED DLCO 18.2 10/09/2020 [facility] 9:55 AM CDT SUITE PRED DLCOc 18.2 10/09/2020 [facility] 9:55 AM CDT SUITE Specimen (Source) Anatomical Collection Method Collection Time Re ceived Time Location / / Volume Laterality 10/09/2020 7:18 AM CDT Narrative This result has an attachment that is no t available. Venkata Mayen M.D. PFT ORDERABLES Performing Organization Address City/State/ZIP Code Phon e Number [facility] SUITE NA DX Chest AP or PA and Lateral 2 Views (10/03/2020 2:22 PM CDT) Anatomical Region Laterality Modality Chest, Thoracic RST LOS, Thoracic ARZ LOS, Thoracic N/A Digital Radiography FLA LOS Specimen (Source) Anatomical Collection Method Collection Time Re ceived Time Location / / Volume Laterality 10/03/2020 3:03 PM CDT Impressions 10/03/2020 3:07 PM CDT Vascular calcification. Mitral annulus calcification. Borderline enlarged cardiac silhouette. No change s juan manuel 09/02/2018. Narrative 10/03/2020 3:07 PM CDT EXAM: ??DX CHEST AP OR PA AND LATERAL 2 VIEWS Procedure Note Jayden Barton M.D. - 10/03/2020For matting of this note might be different from the original. EXAM: DX CHEST AP OR PA AND LATERAL 2 EWS IMPRESSION: Vascular calcification. Mitral annulus c alcification. Borderline enlarged cardiac silhouette. No change s juan manuel 09/02/2018. Venkata Mayen M.D. IMG DIAGNOSTIC IMAGING PROCE VIDYA CK (Creatine Kinase) (10/03/2020 10:13 AM CDT) P athologist Signature Creatine Kinase 89 26 - 192 10/03/2020 [facility] (CK), S U/L 4:20 PM CDT Specimen Anatomical Collection Method Collection Time Receive d Time (Source) Location / / Volume Laterality Blood (Blood, 10/03/2020 10:13 10/03/2020 2:40 Venous) AM CDT PM CDT Venkata Mayen M.D. LAB BLOOD ADD-ON Performing Organization Address City/State/ZIP Code Phon e Number [facility] - [address] [place], [place] [address] [place] [address] [facility] [address] documented in this encounter Visit Diagnoses Diagnosis Dyspnea Multifactorial - Primary Ischemic Heart Chronic Disease Hyperlipidemia On Treatment Elevated Lipoprotein A Impaired Fasting Glucose Apnea Sleep Obstructive Morbid Obesity Body Mass Index 40.0-44.9 Adult (HCC) Ischemic Heart Chronic Disease Hyperlipidemia On Treatment Elevated Lipoprotein A Impaired Fasting Glucose Apnea Sleep Obstructive Dyspnea Multifactorial Ischemic Heart Chronic Disease Hyperlipidemia On Treatment Elevated Lipoprotein A Impaired Fasting Glucose Apnea Sleep Obstructive Dyspnea Multifactorial documented in this encounter Additional Health Concerns Infection Onset Date Last Indicated Resolved Time COVID19 Pending 10/03/2020 10/03/2020 10/03/2020 6:45 PM CDT Assessment Noted Time PHQ-9 Depression Total Score: 6 08/20/2012 4:08 PM CDT documented as of this encounter
--- OUTSIDE RECORDS SUMMARY | 2022-01-10 09:03 | XMS_ITS | Encounter Summary ---
:1950 Author Organization [facility] Address [address] [place] [address] Care Team Providers Name Role Phone Unavailable Primary Care Provider Unavailable Reason for Visit Outpatient (Routine) - Closed Specialty Diagnoses / Procedures Referred By Contact Refer red To Contact Radiology Diagnoses Hyperlipidemia On Treatment Ischemic Heart Chronic Disease Metabolic Syndrome Venkata Mayen M.D. Rst Rad Dx Roch Procedures DX CHEST AP OR PA AND LATERAL 2 VIEWS RAD DX CHEST [address] [place] [address] [place] [phone] [place] [phone] Fax: Referral ID Status Reason Start Date Expiration Date Visits Requ ested Visits Authorized [id number] Closed 09/02/2018 09/02/2019 3 3 Encounter Details Date Type Department Care Team Description 09/02/2018 Hospital Encounter Department of Venkata Mayen Hyperlip idemia On Treatment; Radiology, Leonel Rivera M.D. Ischemic Heart Chronic Disease; Building, in [address] [place] [address] Metabolic Syndrome [facility] [phone] [place] [address] [place], [place] (Work) [phone] Social History Tobacco Use Types Packs/Day Years Used Date Smoking Tobacco: Former Alcohol Habits Answer Date Recorded How often do you have a drink containing 4 or more times a w [place] 11/13/2021 alcohol? How many drinks containing alcohol [...] or slept in a long-term (including now)? 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 documented in this encounter Results DX Chest AP or PA and Lateral 2 Views (09/02/2018 9:44 AM CDT) Anatomical Region Laterality Modality Chest, Thoracic RST LOS, Thoracic ARZ LOS, Thoracic N/A Digital Radiography FLA LOS Specimen (Source) Anatomical Collection Method Collection Time Re ceived Time Location / / Volume Laterality 09/02/2018 9:54 AM CDT Impressions 09/02/2018 9:56 AM CDT Comparison was made with chest radiograph ?dated 08/12/2014 ?? . Stable right hemidiaphragm eventration. Borderline enlarged cardiac silhouette, calcified tortuous thoracic aorta are es sentially unchanged. Coronary stenting again seen. New linear structure project ing over the mid anterior abdomen on the lateral view could be external to the pa tient. Narrative 09/02/2018 9:56 AM CDT EXAM: ??DX CHEST AP OR PA AND LATERAL 2 VIEWS Procedure Note Chavo Cross M.D. - 09/02/2018Formattin g of this note might be different from the original. EXAM: DX CHEST AP OR PA AND LATERAL 2 EWS IMPRESSION: Comparison was made with chest radiograp h dated 08/12/2014 . Stable right hemidiaphragm eventration. Borderline enlarged cardiac silhouette, calcified tortuous thoracic aorta are es sentially unchanged. Coronary stenting again seen. New linear structure project ing over the mid anterior abdomen on the lateral view could be external to the pa tient. Venkata [facility] ALEXA DASILVA documented in this encounter Visit Diagnoses Diagnosis Hyperlipidemia On Treatment Ischemic Heart Chronic Disease Metabolic Syndrome documented in this encounter Additional Health Concerns Assessment Noted Time PHQ-9 Depression Total Score: 6 08/20/2012 4:08 PM CDT documented as of this encounter
--- OUTSIDE RECORDS SUMMARY | 2022-01-10 09:03 | XMS_ITS | Encounter Summary ---
:1950 Author Organization [facility] Address [address] [place] [address] Care Team Providers Name Role Phone Unavailable Primary Care Provider Unavailable Reason for Visit Appointment Request (Routine) - Closed Specialty Diagnoses / Procedures Referred By Contact Refer red To Contact Cardiovascular Disease Referral ID Status Reason Start Date Expiration Date Visits Requ ested Visits Authorized [id number] Closed 07/06/2018 07/06/2019 1 1 Encounter Details Date Type Department Care Team Description 09/02/2018 Office Visit Department of Venkata Mayen Ischemic Heart Chronic Disease (Primary Dx); Cardiovascular Medicine Gus Rivera Hypertensive Heart Disease Without Heart Failure; in [facility] pretty [address] [facility] Coronary Artery Disease (Unspecified); [address] [place], [place] Hyperlipidemia On Treatment; [place] [phone] Impaired Fasting Glucose; [phone] Elevated Lipopr otein A; (Work) Obesity Body Mass Index 30-39.9 Adult Social History Tobacco Use Types Packs/Day Years Used Date Smoking Tobacco: Former Alcohol Habits Answer Date Recorded How often do you have a drink containing 4 or more times a w [place] 11/13/2021 alcohol? How many drinks containing alcohol [...] or relatives? How often do you attend pentecostalism or More than 4 times per year 11/13/2021 latter-day services? Do you belong to any clubs or Yes 11/13/2021 organizations such as pentecostalism groups, unions, fraternal or athletic groups, or [...] or slept in a prison (including now)? 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 - 09/02/2018 1:00 PM CDT SUBJECTIVE Primary Care Provider: Dr. Leeanne Parson HISTORY OF PRESENT ILLNESS Ms. Ivonne Collins is a 68 y.o. female who is referred to [facility] Cardiovascular Medicine for cardiovascular follow-up. Our last visit was in December 2016; please see prior note for details. She has done quite well in the interim and does not endorse any cardiopulmonary symptoms of concern. Specifi leonardo denies chest discomfort, unusual dyspnea, palpitations, lightheadedness, peripheral edema, or syncope. She returned from wintering in [place] in June 2018. She has been walking 30 minutes daily and does not endorse any subjective decline in her aerobic capacity. She does not endorse in any concerns with her medication regimen. No adverse bleeding events. REVIEW OF SYSTEMS REVIEW OF SYSTEMS The following portions of the patient's history were reviewed: allergies, current medications, family history, medical history, social history, surgical history and problem list. Current cardiovascular medications include hydrochlorothiazide 50 mg daily, metoprolol tartrate 25 mg twice daily, ramipril 5 mg daily, verapamil 180 mg daily, rosuvastatin 40 mg daily, ezetimibe 10 mgdaily, aspirin 325 mg daily, and nitroglycerin sublingual as needed. OBJECTIVE BP 116/62 (BP Location: Right arm, Patient Position: Sitting, Cuff Size: Large) Pulse 64 Ht 160.9 cm Wt 99.1 kg BMI 38.28 kg/m?? PHYSICAL EXAMINATION General: Increased body habitus. Well groomed. No distress. Psychiatric: Normal mood and affect. Alert and oriented. Head: Normocephalic, atraumatic. Eyes: No xanthelasma or conjunctivitis. ENT: No oral mucosal pallor or cyanosis. Neck: Normal jugular venous pressure. Carotid upstroke is preserved. No carotid bruit. No subclavianbruit. Heart: Apical impulse is not displaced nor sustained. No ventricular lift. Normal first and second heart sound. No S3 or S4. Rhythm is regular. No systolic murmur. No diastolic murmur. No systolic click. No [...] abdominal bruits. Extremities: No clubbing or cyanosis. No pitting edema. Neurologic: No focal deficits appreciated on limited examination. Gait: No significant gait instability observed. Skin: No stasis dermatitis or ulceration identified in the visualized areas. DIAGNOSTICS I have reviewed the patient's current laboratory, imaging, and other diagnostic studies. Laboratory with normal complete blood count, normal comprehensive metabolic panel, hemoglobin A1c 5.6%, and lipid panel with total cholesterol 115, HDL 40, LDL 51, and triglycerides 122 mg/dL. Chest radiograph with stable right hemidiaphragm eventration, borderline enlarged cardiac silhouette, calcified tortuous thoracic aorta, and coronary stenting which are all unchanged compared to July 2014. Suspected external structure projected over the mid anterior abdomen (discussed with radiologist; see report). Electrocardiogram demonstrates sinus rhythm at 61 beats per minute; normal tracing. ASSESSMENT / PLAN #1 Multivessel coronary artery disease #2 Status post multivessel percutaneous coronary artery revascularization #3 History of in-stent restenosis requiring cutting balloon angioplasty (March 2008) She is asymptomatic from the standpoint of her chronic ischemic heart disease. Exercise echocardiogram completed July 2014 and was negative for ischemia. We discussed the importance of ongoing cardiovascular risk factor modification. I did not make any changes to her medical regimen today (please note that she is on aspirin 325 mg versus 81 mg as well as both low dose beta jayson therapy and a non dihydropyridine calcium channel jayson); she has been on this regimen for many years, and would prefernot to modify given her stability. #4 Systemic hypertension Blood pressure well modified on her current regimen. #5 Hyperlipidemia with elevated lipoprotein(a) Lipid panel in particular the LDL are favorable. Continue rosuvastatin and ezetimibe. We have previously discussed screening family members and she has relayed this information. #6 Elevated fasting glucose with normal hemoglobin A1c Hemoglobin A1c normal today; previously elevated in December 2016. #7 Metabolic syndrome We discussed the importance of ongoing healthy lifestyle modifications through dietary changes, scheduled aerobic activity, and efforts at weight loss. I congratulated her on the efforts she has made to increase aerobic activity as well as adjust her dietary habits including decreasing carbohydrate intake. #8 Multifactorial dyspnea with borderline abnormal pulmonary function tests and methacholine challenge The patient is doing well with as-needed albuterol metered-dose inhaler. #9 Obstructive sleep apnea, treated with CPAP She remains compliant with CPAP per report. #10 Obesity class II (BMI 38 kg/m2) #11 Status post right breast lumpectomy and radiation for infiltrating ductal carcinoma #12 Family history of abdominal aortic aneurysm Recommend screening abdominal aorta ultrasound if an abdominal ultrasound or cross-sectional imagingof the abdomen has not been performed within the past 5 years. She would prefer to have this done [facility] and I will defer to Dr. Parson for further evaluation. Patient Education: Ready to learn, no apparent learning barriers were identified; learning preferences include listening. Explained diagnosis and treatment plan; patient expressed understanding of the content. I believe all questions were answered. She will contact me if she has any questions or concerns including the development of new cardiopulmonary symptoms. I would be happy to continue participating in her care and if she remains stable thenfollow-up in 1-2 years would be reasonable. documented in this encounter Plan of Treatment Not on filedocumented as of this encounter Visit Diagnoses Diagnosis Ischemic Heart Chronic Disease - Primary Hypertensive Heart Disease Without Heart Failure Coronary Artery Disease (Unspecified) Hyperlipidemia On Treatment Impaired Fasting Glucose Elevated Lipoprotein A Obesity Body Mass Index 30-39.9 Adult documented in this encounter Additional Health Concerns Assessment Noted Time PHQ-9 Depression Total Score: 6 08/20/2012 4:08 PM CDT documented as of this encounter
--- OUTSIDE RECORDS SUMMARY | 2022-01-10 09:03 | XMS_ITS | Encounter Summary ---
:1950 Author Organization [facility] Address [address] [place] [address] Care Team Providers Name Role Phone Unavailable Primary Care Provider Unavailable Encounter Details Date Type Department Care Team Description 10/03/2020 Hospital Encounter Department of Venkata Mayen Ischemic Heart Chronic Disease; Radiology, Roderick Rivera M.D. Hyperlipidemia On Treatment; [facility], in [address] [place] [address] Elevated Lipoprotein A; [place], [place] Impaired Fasti ng Glucose; [place] [phone] Apnea Sleep Obstructive; [address] [place] [address] Dyspnea Multifactorial [place], [place] (Work) [phone] Social History Tobacco Use Types Packs/Day Years Used Date Smoking Tobacco: Former Cigarettes 0 0 06/0 08/1965 - 04/01/1979 Smokeless Tobacco: Never Alcohol Use Standard Drinks/Week Comments Yes 10 (1 standard drink = 0.6 oz pure alcoh ol) Alcohol Habits Answer Date Recorded How often do you have a drink containing 4 or more times a w [place] 11/13/2021 alcohol? How many drinks containing alcohol [...] or relatives? How often do you attend gnosticist or More than 4 times per year 11/13/2021 baptism services? 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 A Impaired Fasting Glucose Apnea Sleep Obstructive Dyspnea Multifactorial documented in this encounter Results DX Chest [...] No change s juan manuel 09/02/2018. Venkata [facility] ALEXA DASILVA documented [...]
--- OUTSIDE RECORDS SUMMARY | 2022-01-10 09:03 | XMS_ITS | Encounter Summary ---
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 [address] [place] [phone] Social History Tobacco Use Types Packs/Day Years Used Date Smoking Tobacco: Never Assessed Alcohol Habits Answer Date Recorded How often do you have a drink containing 4 or more times a w [place] 11/13/2021 alcohol? How many drinks containing alcohol [...] More than 4 times per year 11/13/2021 episcopalian services? Do you belong to any clubs [...] or slept in a penitentiary (including now)? 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 Pulse 70 06/08/2012 12:24 PM CDT Vital sign result from Clinical Notes. Temperature - - Respiratory Rate - - Oxygen Saturation - - Inhaled Oxygen Concentration - - Weight - - Height - - Body Mass Index - - documented in this encounter Medications at Time of Discharge Medication Sig Dispensed Refills Start Date End Date rosuvastatin (CRESTOR) 40 Take 1 tablet by 0 05/22 mg tablet mouth at bedtime. sertraline (ZOLOFT) 100 Take 1 tablet by 0 2012 mg tablet mouth at bedtime. aspirin 325 mg tablet Take 1 tablet by 0 06/09/19 13 11/15/2020 mouth daily. verapamil (VERELAN) 180 Take 1 capsule by 0 06/0805/09/2021 mg 24 hr capsule mouth at bedtime. documented as of this encounter Plan of Treatment Not on filedocumented as of this encounter Visit Diagnoses Not on filedocumented in this encounter
--- OUTSIDE RECORDS SUMMARY | 2022-01-10 09:03 | XMS_ITS | Encounter Summary ---
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; Laboratory Medicine Tiffanie Rivera Ischemic Heart Chronic Disease; and Pathology, [address] [place] [address] Hyperlipidemia On Treatment; [facility], in [place], [place] Impaire d Fasting Glucose; [place], [id number] Pain Chest; [place] [phone] Dyspnea Multifactorial [address] [place] [address] (Work) [place], [place] [phone] (Fax) [phone] Social History Tobacco Use Types Packs/Day Years Used Date Smoking Tobacco: Former Cigarettes 0 0 06/0 08/1965 - 04/01/1979 Smokeless Tobacco: Never Alcohol Use Standard Drinks/Week Comments Yes 10 (1 standard drink = 0.6 oz pure alcoh ol) Alcohol Habits Answer Date Recorded How often do you have a drink containing 4 or more times a w makah 11/13/2021 alcohol? How many drinks containing alcohol [...] at Date Recorded Female 05/03/2021 9:58 AM PLEATER documented as of this encounter Medications at [...] Name Priority Date/Time Associated Diagnosis Comme nts LIPID PANEL, Routine 10/03/2020 10:16 Hypertensive Heart Resul ts for this NON-FASTING, S AM CDT Disease Without Heart proc edure are in Failure the results Ischemic Heart Chronic secti on. Disease Hyperlipidemia On Treatment Impaired Fasting Glucose Pain Chest Dyspnea Multifactorial LIPID PANEL, S Routine 10/03/2020 10:16 Hypertensive Heart Res ults for this AM CDT Disease Without Heart proced ure are in Failure the results Ischemic Heart Chronic secti on. Disease Hyperlipidemia On Treatment Impaired Fasting Glucose Pain Chest Dyspnea Multifactorial NT-PRO B-TYPE Routine 10/03/2020 10:16 Hypertensive Heart Resu lts for this NATRIURETIC PEPTIDE AM CDT Disease Without Heart procedure are in (BNP), S Failure the results Ischemic Heart Chronic secti on. Disease Hyperlipidemia On Treatment Impaired Fasting Glucose Pain Chest Dyspnea Multifactorial CBC WITH Routine 10/03/2020 10:16 Hypertensive Heart Resul ts for this DIFFERENTIAL, B AM CDT Disease Without Heart pro cedure are in Failure the results Ischemic Heart Chronic secti on. Disease Hyperlipidemia On Treatment Impaired Fasting Glucose Pain Chest Dyspnea Multifactorial THYROID-STIMULATING Routine 10/03/2020 10:16 Hypertensive Hear t Results for this HORMONE-SENSITIVE AM CDT Disease Without Heart p rocedure are in (S-TSH) Failure the results Ischemic Heart Chronic secti on. Disease Hyperlipidemia On Treatment Impaired Fasting Glucose Pain Chest Dyspnea Multifactorial HEMOGLOBIN A1C, B Routine 10/03/2020 10:16 Hypertensive Heart Results for this AM CDT Disease Without Heart proced ure are in Failure the results Ischemic Heart Chronic secti on. Disease Hyperlipidemia On Treatment Impaired Fasting Glucose Pain Chest Dyspnea Multifactorial COMPREHENSIVE Routine 10/03/2020 10:16 Hypertensive Heart Resu lts for this METABOLIC PANEL, S/P AM CDT Disease Without Hear t procedure are in Failure the results Ischemic Heart Chronic secti on. Disease Hyperlipidemia On Treatment Impaired Fasting Glucose Pain Chest Dyspnea Multifactorial documented in this encounter Results (ABNORMAL) Hemoglobin A1c (10/03/2020 10:16 AM CDT) P athologist Signature Hemoglobin A1c, 6.2 (H) 4.0 - 5.6 10/03/2020 DT B % 11:34 AM CDT Comment: Hemoglobin A1c values of 5.7-6.4 percent indicate an increased risk for developing diabetes m richard. In diabetic patients, HbA1c goals should be discussed with healthcare provider. Specimen Anatomical Collection Method Collection Time Receive d Time (Source) Location / / Volume Laterality Blood (Blood, 10/03/2020 10:16 10/03/2020 Venous) AM CDT 10:54 AM CDT Venkata Mayen M.D. LAB BLOOD ADD-ON Performing Organization Address City/[facility] Phon e Number [facility] - [address] [place], [place] [address] [place] [id number] [facility] [address] (ABNORMAL) NT-Pro B-Type Natriuretic Peptide (BNP) (10/03/2020 10:16 AM CDT) athologist Signature NT-Pro BNP 243 (H) <=214 pg/mL 10/03/2020 DTL 11:25 AM CDT Comment: NT-proBNP values less than [...] / / Volume Laterality Blood (Blood, 10/03/2020 10:16 10/03/2020 Venous) AM CDT 10:58 AM CDT Venkata Mayen M.D. LAB BLOOD ADD-ON Performing Organization Address City/State/[facility] Phon e Number [facility] - [address] [place], [place] [address] [facility] [place] [address] [place] [address] CBC with Differential, Blood (10/03/2020 10:16 AM CDT) P athologist Signature Hemoglobin 13.5 11.6 - 10/03/2020 DTL 15.0 g/dL 11:05 AM CDT Hematocrit 42.0 35.5 - 10/03/2020 DTL 44.9 % 11:05 AM CDT Erythrocytes 4.74 3.92 - 10/03/2020 DTL 5.13 11:05 AM CDT x10(12)/L MCV 88.6 78.2 - 10/03/2020 DTL 97.9 fL 11:05 AM CDT RBC Distrib Width 13.1 12.2 - 10/03/2020 DTL 16.1 % 11:05 AM CDT Platelet Count 173 157 - 371 10/03/2020 DTL x10(9)/L 11:05 AM CDT Leukocytes 7.7 3.4 - 9.6 10/03/2020 DTL x10(9)/L 11:05 AM CDT Neutrophils 4.91 1.56 - 10/03/2020 DTL 6.45 11:05 AM CDT x10(9)/L Lymphocytes 2.24 0.95 - 10/03/2020 DTL 3.07 11:05 AM CDT x10(9)/L Monocytes 0.45 0.26 - 10/03/2020 DTL 0.81 11:05 AM CDT x10(9)/L Eosinophils 0.07 0.03 - 10/03/2020 DTL 0.48 11:05 AM CDT x10(9)/L Basophils 0.04 0.01 - 10/03/2020 DTL 0.08 11:05 AM CDT x10(9)/L Specimen Anatomical Collection Method Collection Time Receive d Time (Source) Location / / Volume Laterality Blood (Blood, 10/03/2020 10:16 10/03/2020 Venous) AM CDT 10:54 AM CDT Venkata Mayen M.D. LAB BLOOD ADD-ON Performing Organization Address City/State/ZIP Code Phon e Number [facility] - [facility] [place], [place] [address] [facility] [place] [address] Laboratories-[facility] [address] S-TSH (Thyroid-Stimulating Hormone - Sensitive) (10/03/2020 10:16 AM CDT) athologist Signature TSH, Sensitive 2.5 0.3 - 4.2 10/03/2020 DTL mIU/L 11:28 AM CDT Specimen Anatomical Collection Method Collection Time Receive d Time (Source) Location / / Volume Laterality Blood (Blood, 10/03/2020 10:16 10/03/2020 Venous) AM CDT 10:57 AM CDT Venkata Mayen M.D. LAB BLOOD ADD-ON Performing Organization Address City/State/ZIP Code Phon e Number [facility] - [address] [place], [place] [address] [facility] [place] [address] [facility] 200 [facility] (ABNORMAL) Lipid Panel (10/03/2020 10:16 AM CDT) athologist Signature Cholesterol, 116 mg/dL 10/03/2020 DTL Total 11:28 AM CDT Comment: ----REFERENCE VALUE---- Desirable: < 200 Borderline high: 200 - 239 High: > or = 240 Triglycerides 100 mg/dL 10/04/2020 6:00 AM CDT DTL Comment: ----REFERENCE VALUE---- Normal: <150 Borderline high: 150-199 High: 200-499 Very high: > or =500 Cholesterol, HDL, S 38 (L) >=50 mg/dL 10/03/2020 11:28 AM CDT DTL Calculated LDL 58 mg/dL 10/04/2020 6:00 AM CDT DT L Comment: ----REFERENCE VALUE---- Desirable: <100 Above Desirable: 100-129 Borderline high: 130-159 High: 160-189 Very high: > or =190 Cholesterol, Non-HDL, Calculated 78 mg/dL 021 11:28 AM CDT DTL Comment: ----REFERENCE VALUE---- Desirable: <130 Above Desirable: 130-159 Borderline high: 160-189 High: 190-219 Very high: > or =220 Specimen Anatomical Collection Method Collection Time Receive d Time (Source) Location / / Volume Laterality Blood (Blood, 10/03/2020 10:16 10/03/2020 Venous) AM CDT 10:57 AM CDT Venkata Mayen M.D. LAB BLOOD ADD-ON Performing Organization Address City/State/ZIP Code Phon e Number [facility] - [address] [place], [place] [address] [facility] [place] [address] Laboratories[facility] [address] (ABNORMAL) Comprehensive Metabolic Panel (10/03/2020 10:16 AM CDT) P athologist Signature Potassium, S 3.7 3.6 - 5.2 10/03/2020 DTL mmol/L 11:25 AM CDT Sodium, S 139 135 - 145 10/03/2020 DTL mmol/L 11:25 AM CDT Chloride, S 96 (L) 98 - 107 10/03/2020 DTL mmol/L 11:25 AM CDT Bicarbonate, S 31 (H) 22 - 29 10/03/2020 DTL mmol/L 11:25 AM CDT Anion Gap 12 7 - 15 10/03/2020 DTL 11:25 AM CDT BUN (Blood Urea 17 6 - 21 10/03/2020 DTL Nitrogen), S mg/dL 11:25 AM CDT Creatinine 0.75 0.59 - 10/03/2020 DTL 1.04 mg/dL 11:25 AM CDT eGFR-Non 80 >=60 10/03/2020 DTL Black/ mL/min/BSA 11:25 AM CDT [place] Comment: ----ADDITIONAL INFORMATION---- Estimated GFR calculated using the 2009 CKD_EPI creatinine equation. eGFR-Black/ >90 >=60 mL/min/BSA 2020 11:25 AM CDT DTL Comment: ----ADDITIONAL INFORMATION---- Estimated GFR calculated using the 2009 CKD_EPI creatinine equation. Calcium, Total, S 9.4 8.8 - 10.2 mg/dL 10/03/2020 11:2 5 AM CDT DTL Glucose, S 124 70 - 140 mg/dL 10/03/2020 11:25 AM CDT DTL Protein, Total, S 6.7 6.3 - 7.9 g/dL 10/03/2020 11:25 AM CDT DTL Albumin, S 4.6 3.5 - 5.0 g/dL 10/03/2020 11:25 AM CDT DTL Aspartate Aminotransferase 19 8 - 43 U/L 10/03/2020 1 1:25 AM CDT DTL (AST), S Alkaline Phosphatase, S 57 35 - 104 U/L 10/03/2020 11 :25 AM CDT DTL Alanine Aminotransferase (ALT), 24 7 - 45 U/L 021 11:25 AM CDT DTL S Bilirubin, Total, S 0.6 <=1.2 mg/dL 10/03/2020 11:25 A M CDT DTL Specimen Anatomical Collection Method Collection Time Receive d Time (Source) Location / / Volume Laterality Blood (Blood, 10/03/2020 10:16 10/03/2020 Venous) AM CDT 10:58 AM CDT Venkata Mayen M.D. LAB BLOOD ADD-ON Performing Organization Address City/State/ZIP Code Phon e Number [facility] - [address] [place] [address] [place] [address] [place] [address] [facility] 200 [facility] (ABNORMAL) Lipid Panel, NON-FASTING (10/03/2020 10:16 AM CDT) athologist Signature Cholesterol, 116 mg/dL 10/03/2020 DTL Total 11:28 AM CDT Comment: ----REFERENCE VALUE---- Desirable: < 200 Borderline high: 200 - 239 High: > or = 240 Triglycerides CANCELED mg/dL 10/04/2020 5:59 AM CDT DTL Comment: Result canceled by the ancillar y. Cholesterol, HDL, S 38 (L) >=50 mg/dL 10/03/2020 11:28 AM CDT DTL LDL Cholesterol, Non-Fasting 58 mg/dL 10/04/2020 6:00 AM CDT DTL Comment: ----REFERENCE VALUE---- Desirable: <100 Above Desirable: 100-129 Borderline high: 130-159 High: 160-189 Very high: > or =190 Cholesterol, Non-HDL, Calculated 78 mg/dL 021 11:28 AM CDT DTL Comment: ----REFERENCE VALUE---- Desirable: <130 Above Desirable: 130-159 Borderline high: 160-189 High: 190-219 Very high: > or =220 Specimen Anatomical Collection Method Collection Time Receive d Time (Source) Location / / Volume Laterality Blood (Blood, 10/03/2020 10:16 10/03/2020 Venous) AM CDT 10:57 AM CDT Venkata Mayen M.D. LAB BLOOD ADD-ON Performing Organization Address City/State/ZIP Code Phon e Number [facility] - [address] [place], [place] [address] [facility] [place] [address] Laboratories[facility] [address] documented in this encounter Visit Diagnoses Diagnosis Hypertensive Heart Disease Without Heart Failure Ischemic Heart Chronic Disease Hyperlipidemia On Treatment Impaired Fasting Glucose Pain Chest Dyspnea Multifactorial documented in this encounter Additional Health Concerns Assessment Noted Time PHQ-9 Depression Total Score: 6 08/20/2012 4:08 PM CDT documented as of this encounter
--- OUTSIDE RECORDS SUMMARY | 2022-01-10 09:03 | XMS_ITS | Encounter Summary ---
:1950 Author Organization [facility] Address [address] [place] [id number] Care Team Providers Name Role Phone Unavailable Primary Care Provider Unavailable Reason for Referral Outpatient (Routine) - Closed Specialty Diagnoses / Procedures Referred By Contact Refer red To Contact Diagnoses Hypertensive Heart Disease Without Heart Failure Ischemic Heart Chronic Disease Hyperlipidemia On Treatment Impaired Fasting Glucose Pain Chest Dyspnea Multifactorial Venkata Mayen M.D. [facility] Procedures ECG 12 Lead [address] [place] [address] Referral ID Status Reason Start Date Expiration Date Visits Requ ested Visits Authorized [id number] Closed 08/24/2020 08/24/2021 1 1 utpatient (Routine) - Closed Specialty Diagnoses / Procedures Referred By Contact Refer red To Contact Diagnoses Hypertensive Heart Disease Without Heart Failure Ischemic Heart Chronic Disease Hyperlipidemia On Treatment Impaired Fasting Glucose Pain Chest Dyspnea Multifactorial Venkata Mayen M.D. [facility] Procedures Echo Transthoracic (TTE) [address] [place], [place] [address] Referral ID Status Reason Start Date Expiration Date Visits Requ ested Visits Authorized [id number] Closed 08/24/2020 08/24/2021 1 1 Encounter Details Date Type Department Care Team Description 08/24/2020 Orders Only Department of Venkata Mayen H eart Disease Without Heart Failure (Primary Dx); Cardiovascular Medicine Nia Rivera Ischemic Heart Chronic Disease; in [facility] pretty 200 [facility] Hyperlipidemia On Treatment; 200 [place], [place] Impaired Fasting Glucose; [place] [phone] Pain Chest; [phone] Dyspnea Multifa ctorial (Work) Social History Tobacco Use Types Packs/Day Years Used Date Smoking Tobacco: Former Alcohol Habits Answer Date Recorded How often do you have a drink containing 4 or more times a w [place] 11/13/2021 alcohol? How many drinks [...] or slept in a fci (including now)? 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 Plan of Treatment Not on filedocumented as of this encounter Results ECG 12 Lead (10/03/2020 10:38 AM CDT) P athologist Signature Ventricular Rate 69 BPM MUSE ECG/Min PA Interval 170 ms MUSE QRSD Interval 90 ms MUSE QT Interval 432 ms MUSE QTC Interval 462 ms MUSE P [place] 55 degrees MUSE R [place] 44 degrees MUSE T Wave [place] 23 degrees MUSE Specimen Anatomical Collection Method Collection Time Receive d Time (Source) Location / / Volume Laterality 10/03/2020 10:38 10/03/2020 AM CDT 10:42 AM CDT Impressions MUSE - 10/03/2020 10:42 AM CDT Normal sinus rhythm Normal ECG When compared with ECG of 02-SEP-2018 10 :13, No significant change was found Reviewed by LOGAN Dominguez Narrative This result has an attachment that is no t available. Procedure Note Timothy Cross Jr., M.D. - 10/03/2020For matting of this note might be different from the original. IMPRESSION: Normal sinus rhythm Normal ECG When compared with ECG of 02-SEP-2018 10 :13, No significant change was found Reviewed by LOGAN Dominguez Venkata Mayen M.D. ECG ORDERABLES Performing Organization Address City/State/ZIP Code Phon e Number MUSE MUSE NA (ABNORMAL) Hemoglobin A1c (10/03/2020 10:16 AM CDT) P athologist Signature Hemoglobin A1c, 6.2 (H) 4.0 - 5.6 10/03/2020 DT B % 11:34 AM CDT Comment: Hemoglobin A1c values of 5.7-6.4 percent indicate an increased risk for developing diabetes nia ramos. In diabetic patients, HbA1c goals should be discussed with healthcare provider. Specimen Anatomical Collection Method Collection Time Receive d Time (Source) Location / / Volume Laterality Blood (Blood, 10/03/2020 10:16 10/03/2020 Venous) AM CDT 10:54 AM CDT Venkata Mayen M.D. LAB BLOOD ADD-ON Performing Organization Address City/State/ZIP Code Phon e Number [facility] - [address] [place], [place] [address] [facility] [place] [address] Laboratories-[facility] [address] (ABNORMAL) NT-Pro B-Type Natriuretic Peptide (BNP) (10/03/2020 10:16 AM CDT) P athologist Signature NT-Pro BNP 243 (H) <=214 [...] Organization Address City/State/ZIP Code Phon e Number [facility] - [address] [place] [phone] [facility] [place] [address] Laboratories-[address] CBC with Differential, Blood (10/03/2020 10:16 AM CDT) athologist Signature Hemoglobin 13.5 11.6 - 10/03/2020 [...] M.D. LAB BLOOD ADD-ON Performing Organization Address [facility] Phon e Number [facility] - [address] S-TSH (Thyroid-Stimulating Hormone - Sensitive) (10/03/2020 10:16 AM CDT) athologist Signature TSH, Sensitive 2.5 0.3 - 4.2 10/03/2020 DTL mIU/L 11:28 AM CDT Specimen Anatomical Collection Method Collection Time Receive d Time (Source) Location / / Volume Laterality Blood (Blood, 10/03/2020 10:16 10/03/2020 Venous) AM CDT 10:57 AM CDT Venkata Mayen M.D. LAB BLOOD ADD-ON Performing Organization Address City/[facility] Phon e Number [facility] - [address] (ABNORMAL) Lipid Panel (10/03/2020 10:16 AM CDT) [...] Organization Address City/State/ZIP Code Phon e Number [facility] - 200 [place], [place] [address] [facility] [place] [address] [facility] [address] [facility] (ABNORMAL) Comprehensive Metabolic Panel (10/03/2020 10:16 AM [...] 10/03/2020 DTL Black/ mL/min/BSA 11:25 AM CDT Greek Comment: ----ADDITIONAL INFORMATION---- Estimated GFR calculated using [...] Organization Address City/State/ZIP Code Phon e Number [facility] - [address] [place], [place] [address] [facility] [place] [address] [facility] 200 [facility] (ABNORMAL) Lipid Panel, NON-FASTING (10/03/2020 10:16 AM CDT) P athologist Signature Cholesterol, 116 mg/dL 10/03/2020 DTL [...] Organization Address City/State/ZIP Code Phon e Number [facility] - 200 [place], [place] [address] [facility] [place] [address] [facility] 200 [facility] (TTE) 2D ECHO DOPPLER COLOR (10/03/2020 9:48 AM CDT) [facility] gist Method Time Signature Ejection Fraction 59 MC CV EIMS Mid-Ascending Aorta 34 MC CV EIMS LV Mass Index 86 MC CV EIMS LV End-Diastolic 45 MC CV EIMS Diameter LV End-Systolic 29 MC CV EIMS Diameter LV End-Diastolic 85 MC CV EIMS Volume LV End-Systolic 34 MC CV EIMS Volume MV E Velocity 1.4 MC CV EIMS MV A Velocity 1.1 MC CV EIMS MV E/A 1.27 MC CV EIMS MV e' Velocity 0.06 MC CV EIMS Medial MV e' Velocity 0.10 MC CV EIMS Lateral MV E/e' Medial 23.3 MC CV EIMS MV E/e' Lateral 14.0 MC CV EIMS Left ventricular 44 MC CV EIMS stroke volume index Cardiac Output 5.94 MC CV EIMS Cardiac Index 2.92 MC CV EIMS LV Interventricular 11 MC CV EIMS Septal Wall Thickness LV Posterior Wall 11 MC CV EIMS Thickness LV Relative Wall 49 MC CV EIMS Thickness TR Vmax 2.90 MC CV EIMS RA Pressure 5 MC CV EIMS RV Systolic Pressure 39 MC CV EIM S AV mean gradient 7 MC CV EIMS Aortic valve area 2.07 MC CV EIMS Aortic Valve Area 1.02 MC CV EIMS Index Aortic Valve 0.66 MC CV EIMS Dimensionless Index MV mean gradient 4 MC CV EIMS MV regurgitant 20 MC CV EIMS volume LA Volume Index 50 MC CV EIMS Anatomical Region Laterality Modality Echocardiography Specimen (Source) Anatomical Collection Method Collection Time Re ceived Time Location / / Volume Laterality 10/03/2020 7:29 AM CDT Impressions 10/03/2020 10:02 AM CDT LEFT VENTRICLE: ??Normal left ventricular chamber size. ??Normal left ventricular wall thickness. Calculated 2-D biplane volumetric left ventricular ejection fraction 59 %. ??No regional wall motion abnormalities. ??Indeterminate le ft ventricular filling pressure (significant mitral valve disease). ??RIGHT VENTRICLE: ??[place] right ventricular chamber size. ??Normal right ventricular systolic function. ??Estimat ed right ventricular systolic pressure 39 mmHg (systolic blood pressure 115 mmHg). ??ATRIA: ??Sev erely enlarged left atrial size. ??Left atrial volume index 50 ml/m^2. ??Mild-moderately enlar ged right atrial size by visual estimate. ??CARDIAC VALVES: ??Trileaflet aortic valve. ??Mil dly calcified aortic valve. ??Aortic valve area by Doppler 2.07 cm^2. ??Aortic valve systolic mean Doppler gradient 7 mmHg. ??No aortic valve regurgitation. Severely calcified mitral annulus. ??Mo derately thickened mitral valve. ??Mild mitral valve regurgitation. ??Mitral valve diastolic mean Doppler gradient 4 mmHg (heart rate 66 BPM). Normal pulmonary valve. ??Normal pulmona ry valve systolic velocities. ??Trivial pulmonary valve regurgitation. ??Mildly thickened tricus pid valve. ??Mild tricuspid valve regurgitation. ??OTHER ECHO FINDINGS: ??Normal inferior vena ca va size with normal inspiratory collapse (>50%). ??Normal caliber ascending aorta. ??No abdominal aortic aneurysm. ??Normal abdominal aorta Doppler flow pattern. ??No atrial level shunt by colo r flow imaging. ??No intracardiac mass or thrombus, but the left atrial appendage cannot be visu alized adequately with transthoracic echo to exclude thrombus in this location. ??No pericard ial effusion. For the complete report, see the [employer] Documents. Narrative 10/03/2020 10:02 AM CDT For the complete report, see the [employer] Documents. Final Impressions 1. Normal left ventricular chamber size. ??Ejection fraction 59%. ??No regional wall motion abnormalities. 2. Normal right ventricular chamber size with normal systolic function. 3. Estimated right ventricular systolic pressure 39 mmHg (systolic blood pressure 115 mmHg). 4. Severe left atrial enlargement. 5. Mildly calcified aortic valve with tr ivial stenosis and no regurgitation. 6. Aortic valve area by Doppler 2.07 cm^ 2. ??Mean gradient 7 mmHg. 7. Severely calcified mitral annulus, in cluding bulky calcification below the medial mitral valve commissure. ??Moderately thickened and partially calcified mitral leaflets. ??Moderately thickened mitral chordae. Mild mitral st enosis and regurgitation. 8. Mitral valve diastolic mean Doppler g radient 4 mmHg (heart rate 66 BPM). 9. Inferior vena cava findings consisten t with normal central venous pressure. 10. No pericardial effusion. 11. Compared to the resting portion of t he report from her stress echocardiography study performed August 18, 2014, the following ch anges have occurred: Calcification of her mitral annulus and thickening of her leaflets a nd subvalvular apparatus has progressed, although she still has only mild mitral stenosis and mild regurgitation. ??Her left atrium has further enlarged 12. See SERIAL STUDIES for comparison of measurements and hemodynamics. Procedure Note Hebert Sinha M.D. - 10/03/2020For matting of this note might be different from the original. For the complete report, see the [employer] Documents. Final Impressions 1. Normal left ventricular chamber size. Ejection fraction 59%. No regional wall motion abnormalities. 2. Normal right ventricular chamber size with normal systolic function. 3. Estimated right ventricular systolic pressure 39 mmHg (systolic blood pressure 115 mmHg). 4. Severe left atrial enlargement. 5. Mildly calcified aortic valve with tr ivial stenosis and no regurgitation. 6. Aortic valve area by Doppler 2.07 cm^ 2. Mean gradient 7 mmHg. 7. Severely calcified mitral annulus, in cluding bulky calcification below the medial mitral valve commissure. Moderately thickened a nd partially calcified mitral leaflets. Moderately thickened mitral chordae. Mild mitral st enosis and regurgitation. 8. Mitral valve diastolic mean Doppler g radient 4 mmHg (heart rate 66 BPM). 9. Inferior vena cava findings consisten t with normal central venous pressure. 10. No pericardial effusion. 11. Compared to the resting portion of t he report from her stress echocardiography study performed August 18, 2014, the following ch anges have occurred: Calcification of her mitral annulus and thickening of her leaflets a nd subvalvular apparatus has progressed, although she still has only mild mitral stenosis and mild regurgitation. Her left atrium has further enlarged 12. See SERIAL STUDIES for comparison of measurements and hemodynamics. Findings LEFT VENTRICLE: Normal left ventricular chamber size. Normal left ventricular wall thickness. Calculated 2-D biplane volumetric left ventricular ejection fraction 59 %. No regional wall motion abnormalities. Indeterminate left ventricular filling pressure (significant mitral valve disease). RIGHT VENTRICLE: Normal right ventricular chamber size. Normal right ventricular systolic function. Estimated right ventricular systolic pressure 39 mmHg (systolic blood pressure 115 mmHg). ATRIA: Severel y enlarged left atrial size. Left atrial volume index 50 ml/m^2. Mild-moderately enlarge d right atrial size by visual estimate. CARDIAC VALVES: Trileaflet aortic valve. Mildly calcified aortic valve. Aortic valve area by Doppler 2.07 cm^2. Aortic valve systolic mean Do ppler gradient 7 mmHg. No aortic valve regurgitation. Severely calcified mitral annulus. Mode rately thickened mitral valve. Mild mitral valve regurgitation. Mitral valve diastolic me an Doppler gradient 4 mmHg (heart rate 66 BPM). Normal pulmonary valve. Normal pulmonary valve systolic velocities. Trivial pulmonary valve regurgitation. Mildly thickened tricuspi d valve. Mild tricuspid valve regurgitation. OTHER ECHO FINDINGS: Normal inferior vena cava size with normal inspiratory collapse (>50%). Normal caliber ascending aorta. No abdominal ao rtic aneurysm. Normal abdominal aorta Doppler flow pattern. No atrial level shunt by color flow imaging. No intracardiac mass or thrombus, but the left atrial appendage cannot be visu alized adequately with transthoracic echo to exclude thrombus in this location. No pericardia l effusion. For the complete report, see the [employer] Documents. Venkata Mayen M.D. CV ECHO PROCEDURES documented in this encounter Visit Diagnoses Diagnosis Hypertensive Heart Disease Without Heart Failure - Primary Ischemic Heart Chronic Disease Hyperlipidemia On Treatment Impaired Fasting Glucose Pain Chest Dyspnea Multifactorial Hypertensive Heart Disease Without Heart Failure Ischemic Heart Chronic Disease Hyperlipidemia On Treatment Impaired Fasting Glucose Pain Chest Dyspnea Multifactorial documented in this encounter Additional Health Concerns Assessment Noted Time PHQ-9 Depression Total Score: 6 08/20/2012 4:08 PM CDT documented as of this encounter
--- OUTSIDE RECORDS SUMMARY | 2022-01-10 09:03 | XMS_ITS | Encounter Summary ---
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 How many drinks containing alcohol [...] or slept in a retirement (including now)? 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 : Not recommended to test Plan: Endpoint recommendation: Followed regional OTG *Reminder if sending patient for testing in [facility], route encounter to the correct testing pool. documented in this encounter Plan of Treatment Not on filedocumented as of this encounter Visit Diagnoses Not on filedocumented in this encounter Additional Health Concerns Assessment Noted Time PHQ-9 Depression Total Score: 6 08/20/2012 4:08 PM CDT documented as of this encounter
--- OUTSIDE RECORDS SUMMARY | 2022-01-10 09:03 | XMS_ITS | Encounter Summary ---
:1950 Author Organization [facility] Address [address] [place] [address] Care Team Providers Name Role Phone Unavailable Primary Care Provider Unavailable Encounter Details Date Type Department Care Team Description 08/11/2012 Ancillary Procedure Department of Oncology Social History Tobacco Use Types Packs/Day Years Used Date Smoking Tobacco: Never Assessed Alcohol Habits Answer Date Recorded How often do you have a drink containing 4 or more times a w [place] 11/13/2021 alcohol? How many drinks containing alcohol [...] or relatives? How often do you attend quaker or More than 4 times per year 11/13/2021 christianity services? Do you belong to any clubs or Yes 11/13/2021 organizations such as quaker groups, unions, fraternal or athletic groups, or [...] or slept in a fdc (including now)? 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 documented in this encounter Results Non-Radiology Image-Oncology Image Exam (08/11/2012 2:10 PM CDT) Specimen (Source) Anatomical Location Collection Method / Collectio n Time Received Time / Laterality Volume Narrative IIMS - 09/13/2018 10:29 AM CDT This order has been created and auto-finalized to support the import of images acquired without order. The clini julee documentation to support these images can be found on the encounter lilly t produced images. Provider Not In System IMG NON RAD IMAGING PROCEDUR ES Performing Organization Address City/State/ZIP Code Phon e Number IIMS IIMS NA documented in this encounter Visit Diagnoses Not on filedocumented in this encounter
--- OUTSIDE RECORDS SUMMARY | 2022-01-10 09:03 | XMS_ITS | Encounter Summary ---
:[address] 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 [facility] Procedures Echo Transthoracic (TTE) [address] [place], [place] [address] Referral ID Status Reason Start Date Expiration Date Visits Requ ested Visits Authorized [id number] Closed 08/24/2020 08/24/2021 1 1 Reason for Visit Outpatient (Routine) - Closed Specialty Diagnoses / Procedures Referred By Contact Refer red To Contact Diagnoses Hypertensive Heart Disease Without Heart Failure Ischemic Heart Chronic Disease Hyperlipidemia On Treatment Impaired Fasting Glucose Pain Chest Dyspnea Multifactorial Venkata Mayen M.D. [facility] Procedures Echo Transthoracic (TTE) [address] [place], [place] [address] Referral ID Status Reason Start Date Expiration Date Visits Requ ested Visits Authorized [id number] Closed 08/24/2020 08/24/2021 1 1 Encounter Details Date Type Department Care Team Description 10/03/2020 Hospital Encounter Department of Venkata Mayen Heart Disease Without Heart Failure; Cardiovascular Tiffanie Rivera Ischemic Heart Chronic Disease; Diseases in [place], [address] Hyper lipidemia On Treatment; [facility] Impaired Fasting Glucose; [address] [place], Pain Chest; [place], [place] Dyspnea Multif actorial [phone] Social History Tobacco Use Types Packs/Day Years Used Date Smoking Tobacco: Former Cigarettes 0 0 /0 08/1965 - 04/01/1979 Smokeless Tobacco: Never Alcohol Use Standard Drinks/Week Comments Yes 10 (1 standard drink = 0.6 oz pure alcoh ol) Alcohol Habits Answer Date Recorded How often do you have a drink containing 4 or more times a w [place] 11/13/2021 alcohol? How many drinks containing alcohol do you have 1 or 2 11/13/2021 on a typical day when you are drinking? How often do you have six or more drinks on one Less than mo nthly 11/13/2021 occasion? Social Isolation Answer Date Recorded In a typical week, how many times do you More than three gmóez es a week 11/13/2021 talk on the phone with family, friends, or neighbors? How often do you get together with friends Patient refused 11/13/2021 or relatives? How often do you attend rastafarian or More than 4 times per year 11/13/2021 jehovah's witness services? 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 Disease Hyperlipidemia On Treatment Impaired Fasting Glucose Pain Chest Dyspnea Multifactorial documented in this encounter Results (TTE) 2D ECHO DOPPLER COLOR (10/03/2020 9:48 AM CDT) [facility] gist Method Time Signature Ejection Fraction 59 [...] effusion. For the complete report, see the [employer] Documents. Narrative 10/03/2020 10:02 AM CDT For the complete report, see the [employer] Documents. Final Impressions 1. Normal left ventricular [...]
--- OUTSIDE RECORDS SUMMARY | 2022-01-10 09:03 | XMS_ITS | Clinical Summary ---
:1950 Author Organization [facility] [place] [address] Care Team Providers Name Role Phone Lorin Parson MD Primary Care Provider Allergies Active Allergy Reactions Severity Noted Date Comments Sulfa (Sulfonamide Antibiotics) 0 Sulfabenzamide 10/10/2009 Medications Medication Sig Dispensed Refills Start End Date Status Date rosuvastatin Take 40 mg by 0 Act john (CRESTOR) 40 mg mouth at tablet bedtime. cholecalciferol Take 2,000 0 Act john (VITAMIN D-3) 2,000 Units by mouth unit capsule once daily. nitroglycerin Place 0.4 mg 0 Act john (NITROSTAT) 0.4 mg under the SL tablet tongue every [address]. [address] one tablet sublingual as directed by prescriber albuterol Inhale 2 Puffs 0 Activ e (PROVENTIL; by mouth 4 VENTOLIN) 90 times daily. mcg/actuation Inhale 2 puffs inhaler by mouth every 4-6 hours as neded albuterol HFA Inhale 2 Puffs 0 A ctive (PRO-AIR; VENTOLIN; by mouth every PROVENTIL) 90 4 hours if mcg/actuation needed. inhaler ezetimibe (ZETIA) 10 0 Active mg tablet 1 calcium carbonate Daily 0 Ac tive (CALTRATE) 600 mg calcium (1,500 mg) tablet sertraline (ZOLOFT) 0 Active 100 mg tablet 1 verapamil SR (CALAN 0 Active SR) 180 mg 1 Sustained-Release tablet clopidogreL (Plavix) Take 75 mg by 0 Active 75 mg tablet mouth once daily. aspirin (Aspir-81) Take 1 Tablet 0 Active 81 mg enteric coated (81 mg) by 1 tablet mouth once daily with a meal. potassium chloride Daily 0 A ctive in 0.9%NaCl 10 2 mEq/100 mL pgbk ramipriL (ALTACE) 10 10 mg. 0 Active mg capsule 2 verapamil SR (CALAN 0 Active SR) 240 mg extended 2 release tablet furosemide (LASIX) Take 20 mg by 0 Active 20 mg tablet mouth. 2 CPAPIndications: ZACHARY CPAP machine 1 Each Active (obstructive sleep for home use 2 apnea) at pressure 15 cmw, nasal mask x1/3month with nasal cushion x2/mo metoprolol Take 25 mg by 0 01/02/20 Disco ntinued (LOPRESSOR) 25 mg mouth 2 times 22 (*Patient states tablet daily. no longer taking/Not on sending fa cility list) CPAPIndications: ZACHARY CPAP machine 1 Each Discontinued (obstructive sleep for home use 1 22 (*Patient states apnea) at pressure no longe r 5-16 cmw, taking/Not on nasal mask sending f acility x1/3month with list) nasal pillows x 2/mo furosemide (LASIX) twice a day 0 01/02/20 Discontinued 10 mg as half tablet 2 22 (*Patient states no longer taking/Not on sending fa cility list) CPAPIndications: ZACHARY CPAP machine 1 Each Discontinued (obstructive sleep for home use 2 22 (Reorder apnea) at pressure (E-cance l not 13.6 cmw, sent)) nasal mask x1/3month with nasal cushion x2/mo Active Problems Problem Noted Date ZACHARY AHI-18.7 10/23/2020 Personal history of malignant neoplasm of breast 09/02 Obesity with body mass index 30 or greater 09/02/2018 Hypertensive heart disease without heart failure 06/08 Hyperlipidemia 06/08/2012 Encounters Date Type Specialty Care Team Description 01/02/2022 Hospital Encounter Lorin Parson MD 01/01/2022 Office Visit Adams Medina MD Sleep Follow -up (CPAP) 01/01/2022 Orders Only Scanner <No scans attac hed> 01/01/2022 Travel 12/31/2021 Hospital Encounter Lorin Parson MD 12/31/2021 Travel 12/28/2021 Hospital Encounter Lorin Parson MD 12/28/2021 Travel 12/26/2021 Hospital Encounter Lorin Parson MD 12/26/2021 Travel 12/24/2021 Hospital Encounter Lorin Parson MD 12/24/2021 Travel 12/21/2021 Hospital Encounter Lorin Parson MD 12/21/2021 Travel 12/19/2021 Hospital Encounter Lorin Parson MD 12/19/2021 Travel 12/17/2021 Hospital Encounter Lorin Parson MD 12/17/2021 Travel 12/14/2021 Hospital Encounter Lorin Parson MD 12/14/2021 Travel 12/12/2021 Hospital Encounter Lorin Parson MD 12/12/2021 Travel 12/07/2021 Hospital Encounter Lorin Parson MD 12/07/2021 Travel 12/05/2021 Hospital Encounter Lorin Parson MD 12/04/2021 Hospital Encounter Lorin Parson MD 12/04/2021 Travel 11/27/2021 Telephone Adams Medina MD 11/17/2021 Orders Only Scanner <No scans attac hed> 11/06/2021 Office Visit Adams Medina MD Sleep Follow -up (CPAP) 11/06/2021 Travel 11/04/2021 Telephone Adams Medina MD Appointment Request (discharge lauren rs says stat ) 11/02/2021 Orders Only <No scans attac hed> from Last 3 Months Social History Tobacco Use Types Packs/Day Years Used Date Never Smoker Smokeless Tobacco: Never Used Tobacco Cessation: Counseling Given: Yes Alcohol Use Standard Drinks/Week Comments Not Asked 0 (1 standard drink = 0.6 oz pure alcoho l) Sex Assigned at Date Recorded Not on file COVID-19 Exposure Response Date Recorded In the last 10 days, have you been in contact with No / Unsu re 01/01/2022 1:07 PM CDT someone who was confirmed or suspected to have Coronavirus/COVID-19? Obstetrics History Last Filed Vital Signs Vital Sign Reading Time Taken Comments Blood Pressure 117/56 01/01/2022 1:18 PM CDT Pulse 68 01/01/2022 1:18 PM CDT Temperature 36.8 ??C (98.3 ??F) 07/03/2012 10:46 AM CDT Respiratory Rate 18 12/04/2021 3:00 PM CDT Oxygen Saturation 96% 01/01/2022 1:18 PM CDT Inhaled Oxygen Concentration - - Weight 94.3 kg (207 lb 14.4 oz) 01/01/2022 1:18 PM CDT Height 160 cm (5' 3) 12/04/2021 3:00 PM CDT Body Mass Index 36.83 12/04/2021 3:00 PM CDT Plan of Treatment Upcoming Encounters Date Type Specialty Care Team Description 01/11/2022 Appointment 01/14/2022 Appointment 01/16/2022 Appointment 01/18/2022 Appointment 01/21/2022 Appointment 01/23/2022 Appointment 01/25/2022 Appointment 01/28/2022 Appointment 01/30/2022 Appointment 02/01/2022 Appointment 02/04/2022 Appointment 02/06/2022 Appointment 02/08/2022 Appointment 02/11/2022 Appointment 02/13/2022 Appointment 02/15/2022 Appointment 02/18/2022 Appointment 02/20/2022 Appointment 02/22/2022 Appointment 02/25/2022 Appointment 02/27/2022 Appointment 03/01/2022 Appointment 03/04/2022 Appointment 03/06/2022 Appointment 03/08/2022 Appointment 03/11/2022 Appointment 03/13/2022 Appointment 03/15/2022 Appointment 03/18/2022 Appointment 03/20/2022 Appointment 03/22/2022 Appointment 03/25/2022 Appointment 03/27/2022 Appointment 03/29/2022 Appointment 04/01/2022 Appointment 04/03/2022 Appointment Health Maintenance Due Date Last Done Comments Tdap 01/05/1959 Hepatitis C screening for age 1001/05/1966 18-79 Tetanus booster 1968 Colonoscopy through age 75 01/05/1993 Lipids for age 45-75 01/05/1993 Zoster (shingles) series for age 1001/05/1998 50+ (1 of 2) DEXA/DXA scan for age 65+ 01/05/2013 Medicare Wellness for age 65+ 01/05/2013 Pneumococcal series for age 65+ (1 01/05/2013 - PCV) Mammogram for age 45-75 07/07/2015 07/06/2014 COVID-19 vaccine series (3 - 10/17/2021 08/22/2021, 021 Booster for Pfizer series) BMI (ht and wt on same day) for 10/23/2021 10/23/2020 age 18+ Influenza for age 65+ 11/22/2021 Depression screening for age 12+ 12/07/2022 12/07/2021, , 12/04/2021, Additional history exists Procedures Procedure Name Priority Date/Time Associated Comments Diagnosis SCAN-CARDIAC 01/02/2022 12:00 Results for this REHABILITATION AM CDT procedure are in the results section. SCAN-DIAGNOSTIC REPORT 01/01/2022 12:00 R esults for this AM CDT procedure are i n the results section. SCAN-CARDIAC 12/31/2021 12:00 Results for this REHABILITATION AM CDT procedure are in the results section. SCAN-CARDIAC 12/28/2021 12:00 Results for this REHABILITATION AM CDT procedure are in the results section. SCAN-CARDIAC 12/26/2021 12:00 Results for this REHABILITATION AM CDT procedure are in the results section. SCAN-CARDIAC 12/24/2021 12:00 Results for this REHABILITATION AM CDT procedure are in the results section. SCAN-CARDIAC 12/21/2021 12:00 Results for this REHABILITATION AM CDT procedure are in the results section. SCAN-CARDIAC 12/19/2021 12:00 Results for this REHABILITATION AM CDT procedure are in the results section. SCAN-CARDIAC 12/17/2021 12:00 Results for this REHABILITATION AM CDT procedure are in the results section. SCAN-CARDIAC 12/14/2021 12:00 Results for this REHABILITATION AM CDT procedure are in the results section. SCAN-CARDIAC 12/12/2021 12:00 Results for this REHABILITATION AM CDT procedure are in the results section. SCAN-CARDIAC 12/07/2021 12:00 Results for this REHABILITATION AM CDT procedure are in the results section. SCAN-CARDIAC 12/05/2021 12:00 Results for this REHABILITATION AM CDT procedure are in the results section. SCAN-CARDIAC 12/04/2021 12:00 Results for this REHABILITATION AM CDT procedure are in the results section. SCAN-DIAGNOSTIC REPORT 11/17/2021 12:00 R esults for this AM CDT procedure are i n the results section. SCAN-DIAGNOSTIC REPORT 11/06/2021 12:00 R esults for this AM CDT procedure are i n the results section. ECHO COMPLETE WO Routine 11/02/2021 8:41 AM CHF (congestive Re sults for this CONTRAST CDT heart failure) procedure are in (HC) the results section. from Last 3 Months Results SCAN-CARDIAC REHABILITATION (01/02/2022 12:00 AM CDT)Only the most recent of13 resultswithin the time period is included. Narrative 01/02/2022 12:00 AM CDT This result has an attachment that is no t available. Ordered by an unspecified provider. Other Clinical Staff OTHER SCAN-DIAGNOSTIC REPORT (01/01/2022 12:00 AM CDT) Narrative This result has an attachment that is no t available. Scanner OTHER SCAN-DIAGNOSTIC REPORT (11/17/2021 12:00 AM CDT) Narrative This result has an attachment that is no t available. Scanner OTHER SCAN-DIAGNOSTIC REPORT (11/06/2021 12:00 AM CDT) Narrative This result has an attachment that is no t available. Scanner OTHER ECHO COMPLETE WO CONTRAST (11/02/2021 8:41 AM CDT) P athologist Signature AORTIC VALVE 9 mmHg MEAN PG EJECTION 59 % FRACTION PEAK TR 3.2 m/s VELOCITY LVEDD 4.7 cm MITRAL VALVE 37 mm2 MR ERO EJECTION 60 - 65% FRACTION Anatomical Region Laterality Modality HEART Ultrasound Specimen (Source) Anatomical Collection Method Collection Time Re ceived Time Location / / Volume Laterality 11/02/2021 8:14 AM CDT Narrative 11/02/2021 8:49 AM CDT ECHOCARDIOGRAM IVONNE COLLINS ?Acces cameron#: ?? [id number] : ?1950 71 years Study Date : ?? 11/02/2021 8:14:56 AM Gender: F ? BP: ? 116/55 mmHg Height: 157.00 cm ? BSA: ?2.00 m? ?? Weight: 102.00 kg ? Tech: ? NWA ?Referring MD: TANA VANESSA Site: ? [facility] Reading Location: [facility] Procedure: 2D, Color Doppler and Spectra l Doppler. Indication for study: CHF Cardiac Rhythm: Regular.Study quality: Final Impressions: 1. Normal LV size, normal wall thicknes s, normal global systolic function with an estimated EF of 60 - 65%. 2. Right ventricular cavity size is mil dly enlarged, global systolic RV function is normal. 3. Moderately enlarged left atrium. 4. The mitral valve is sclerotic, sever e mitral regurgitation- the mechanism is not entirely clear. The MR is centrally-directed. There is a mean diastolic gradient of 9-10 mmHg at a HR of 92 bpm. 5. Based on the echo findings, consider cardiology consult. Chamber Sizes and Function Normal left ventricular size, normal wal l thickness, normal global systolic function with an estimated EF of 60 - 65%. Left atrial size is moderately enlarged. Right ventricular cavity size is mildly en larged, global systolic RV function is n ormal. RV wall thickness is normal. The right atrium is mildly enlarged. Right atrial volume index is 21 ml/m? ??. Right atrial area is 16 cm? ??. The pulmonary a rtery is of normal size and origin. The sinus of Valsalva is normal sized. The ascending aorta is normal sized. Valves, RV Pressures and Diastolic Funct ion The aortic valve is trileaflet, no steno sis and no regurgitation. The mitral valve is sclerotic, severe mitral regurgitation. Indeterminate pattern of LV diastolic filling. The tricuspid valve is normal in structure. Tricuspid regurgitation i s mild regurgitation. The tricuspid regurgitant velocity is 3.2 m/s, the estimated right ventricular systolic pressure is 42 mmHg plus right atrial pressure. Ther e is mildly increased estimated pulmonar y pressure by tricuspid regurgitation velocity and right atrial pressure. The pulmonic valve is normal. No pulmonary regurgitation. Masses, Effusion, Shunts There is no pericardial effusion. The in ferior vena cava is normal sized, respiratory size variation greater than 50%. No left to right shunting was detected by limited color flow Doppler interrogation of the interatrial septum. MEASUREMENTS AND CALCULATIONS 2-D Measurements and LV Function: LVID (d) 4.7 cm LV FS% (2D) ?? 27 % LVID (s) 3.4 cm LVOT diameter 1.9 cm IVS (d) ??0.9 cm HR ?97 bpm LVPW (d) 1.5 cm LA Vol index ??49 ml/m2 Ao Sinus 3.6 cm RA Vol index ??21 ml/m2 Asc Ao ?? 3.3 cm RA area ? 16 cm? ?? LA ? 4.6 cm RV Max 4C (d) 2.9 cm Diastology: Mitral ?Tissue Doppler ?Pulmonary veins E Peak 2.0 m/s ??e', Septum ? 0.07 m /s Pulm s ?66.8 cm/s A Peak 1.7 m/s ??e', Lateral ?0.10 m /s Pulm d ?54.1 cm/s E/A ?1.2 ?E/e' Average ?? 22. 39 ?Pulm s/d ratio ??1.23 DT ? 252 msec IVRT ?? 59 msec Aortic Valve: Vmax ? 2.0 m/s ??LEON (V) ?? 1.47 cm? ?? VTI ?0.43 m ?? LEON (I) ?? 1.50 cm? ?? LVOT V max 1.1 m/s ??Max PG ?17 mmHg LVOT VTI ?? 0.24 m ?? Mean PG ?? 9 mmHg SV ? 64 ml ?Dim Index 0.55 SV index ?? 32 ml/m? ?? CO ?6.2 l/min ?CI ?3.1 l/min/m? ?? Mitral Valve: MVA ? 3.0 cm? ?? MR ERO ??0.37 cm? ?? MV P 1/2 ??73 msec MR Vol. 64 ml MV Mean G 10 mmHg MR TVI ??1.74 m MV VTI ?0.46 m Tricuspid Valve and estimated PA pressur es: TR Vmax 3.2 m/s TR maxG 42 mmHg Pulmonic Valve: PV Vmax 1.2 m/s . This study was interpreted by an [facility] facility. CC: [facility], Med/ Surg - IP [facility]. ??Final ?? Procedure Note Dawood Vargas MD - 11/02/2021Forma tting of this note might be different from the original. ECHOCARDIOGRAM IVONNE COLLINS : 1950 71 years Study Date: 10/22 8:14:56 AM Gender: F BP: 116/55 mmHg Height: 157.00 cm BSA: 2.00 m? ?? Weight: 102.00 kg Tech: NWA Referring MD: TANA VANESSA Site: [facility] Reading Location: [facility] Procedure: 2D, Color Doppler and Spectra l Doppler. Indication for study: CHF Cardiac Rhythm: Regular.Study quality: Final Impressions: 1. Normal LV size, normal wall thicknes s, normal global systolic function with an estimated EF of 60 - 65%. 2. Right ventricular cavity size is mil dly enlarged, global systolic RV function is normal. 3. Moderately enlarged left atrium. 4. The mitral valve is sclerotic, sever e mitral regurgitation- the mechanism is not entirely clear. The MR is centrally-directed. There is a mean diastolic gradient of 9-10 mmHg at a HR of 92 bpm. 5. Based on the echo findings, consider cardiology consult. Chamber Sizes and Function Normal left ventricular size, normal wal l thickness, normal global systolic function with an estimated EF of 60 - 65%. Left atrial size is moderately enlarged. Right ventricular cavity size is mildly enlarged, global systolic RV function is normal. R V wall thickness is normal. The right atrium is mildly enlarged. Right atrial volume index is 21 ml/m? ??. Right atrial area is 16 cm? ??. The pulmonary artery is of normal size and origin. The sinus of Valsalva is normal sized. The ascending aorta is normal sized. Valves, RV Pressures and Diastolic Funct ion The aortic valve is trileaflet, no steno sis and no regurgitation. The mitral valve is sclerotic, severe mitral regurgitation. Indeterminate pattern of LV diastolic filling. The tricuspid valve is normal in structure. Tricuspid regurgitation is mi ld regurgitation. The tricuspid regurgitant velocity is 3.2 m/s, the estimated right ventricular systolic pressure is 42 mmHg plus right atrial pressure. There is mildly increased estimated pulmonary pressure by tricuspi d regurgitation velocity and right atrial pressure. The pulmonic valve is normal. No pulmonary regurgitation. Masses, Effusion, Shunts There is no pericardial effusion. The in ferior vena cava is normal sized, respiratory size variation greater than 50%. No left to right shunting was detected by limited color flow Doppler interrogation of the interatrial septum. MEASUREMENTS AND CALCULATIONS 2-D Measurements and LV Function: LVID (d) 4.7 cm LV FS% (2D) 27 % LVID (s) 3.4 cm LVOT diameter 1.9 cm IVS (d) 0.9 cm HR 97 bpm LVPW (d) 1.5 cm LA Vol index 49 ml/m2 Ao Sinus 3.6 cm RA Vol index 21 ml/m2 Asc Ao 3.3 cm RA area 16 cm? ?? LA 4.6 cm RV Max 4C (d) 2.9 cm Diastology: Mitral Tissue Doppler Pulmonary veins E Peak 2.0 m/s e', Septum 0.07 m/s Pulm s 66.8 cm/s A Peak 1.7 m/s e', Lateral 0.10 m/s Pulm d 54.1 cm/s E/A 1.2 E/e' Average 22.39 Pulm s/d rati o 1.23 DT 252 msec IVRT 59 msec Aortic Valve: Vmax 2.0 m/s LEON (V) 1.47 cm? ?? VTI 0.43 m LEON (I) 1.50 cm? ?? LVOT V max 1.1 m/s Max PG 17 mmHg LVOT VTI 0.24 m Mean PG 9 mmHg SV 64 ml Dim Index 0.55 SV index 32 ml/m? ?? CO 6.2 l/min CI 3.1 l/min/m? ?? Mitral Valve: MVA 3.0 cm? ?? MR ERO 0.37 cm? ?? MV P 1/2 73 msec MR Vol. 64 ml MV Mean G 10 mmHg MR TVI 1.74 m MV VTI 0.46 m Tricuspid Valve and estimated PA pressur es: TR Vmax 3.2 m/s TR maxG 42 mmHg Pulmonic Valve: PV Vmax 1.2 m/s . This study [facility] CC: [facility]/ Surg - IP [facility]. Final Tana Vanessa MD ECHO ORD from Last 3 Months Insurance Payer Benefit Plan / Subscriber ID Effective Dates Phone Addre ss Type Group MEDICARE PART A MEDICARE PART A [id number] 2012-Prese ATTN: CLAIMS - HB USE ONLY HB ONLY nt [address] [facility] [place] [address] MEDICARE PART B MEDICARE PART B [id number] 2012-Prese ATTN: CLAIMS - HB USE ONLY HB ONLY nt [address] [facility] [place] [address] BLUE CROSS MR BLUE CROSS [id number] 2020-Presen [address] [address] [place] [address] [place] [id number] BLUE CROSS BLUE CROSS [id number] 2020-[place] [address] [address] [address] [place] [facility] [place] [id number] Advance Directives Documents on File Type Date Recorded Patient Counseling Aide Explanati on Healthcare Directive 08/11/2012 12:00 AM ADVANCE DIRECTIVE Latest Code Status on File Code Status Date Activated Date Inactivated Comments Full Code 06/19/2012 5:13 PM 06/22/2012 2:44 PM Full Code 06/11/2012 10:20 AM 06/11/2012 5:42 PM Care Teams Marketing Recruiter Relationship Specialty Start Date End Date Lorin Parson MD PCP - General Family Practice 11/10/191999 [place] [address]
--- OUTSIDE RECORDS SUMMARY | 2022-01-10 09:03 | XMS_ITS | Encounter Summary ---
:1950 Author Organization [facility] Address [address] [place] [id number] Care Team Providers Name Role Phone Unavailable Primary Care Provider Unavailable Encounter Details Date Type Department Care Team Description 08/10/2014 Hospital Encounter HX [facility] Ra jayashree Gonzalez M.D. [address] [place] [phone] (Wo rk) Social History Tobacco Use Types Packs/Day Years Used Date Smoking Tobacco: Never Assessed Alcohol Habits Answer Date Recorded How often do you have a drink containing 4 or more times a w [place] 11/13/2021 alcohol? How many drinks containing alcohol [...] or slept in a half-way (including now)? 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
--- OUTSIDE RECORDS SUMMARY | 2022-01-10 09:03 | XMS_ITS | Encounter Summary ---
:1950 Author Organization [facility] Address [address] [place] [address] Care Team Providers Name Role Phone Unavailable Primary Care Provider Unavailable Reason for Visit Reason Onset Date Comments Appointment 07/06/2018 Encounter Details Date Type Department Care Team Description 07/06/2018 Clinical Communication Department of Venkata Mayen intment Cardiovascular Medicine Gus Rivera in [facility] [address] [facility] [address] [place] [id number] [phone] Social History Tobacco Use Types Packs/Day Years Used Date Smoking Tobacco: Former Alcohol Habits Answer Date Recorded How often do you have a drink containing 4 or more times a w [place] 11/13/2021 alcohol? How many drinks containing alcohol [...] More than 4 times per year 11/13/2021 anabaptism services? Do you belong to any clubs [...] or slept in a snf (including now)? 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 Collins is scheduled to see you 09/02 for Multivessel coronary artery disease. She is not havingany problems at this time. She thought she only missed one year, although it was a couple year. What testing would you like? Gretchen documented in this encounter Plan of Treatment Not on filedocumented as of this encounter Visit Diagnoses Not on filedocumented in this encounter Additional Health Concerns Assessment Noted Time PHQ-9 Depression Total Score: 6 08/20/2012 4:08 PM CDT documented as of this encounter
--- OUTSIDE RECORDS SUMMARY | 2022-01-10 09:03 | XMS_ITS | Encounter Summary ---
:1950 Author Organization [facility] Address [address] [place] [id number] Care Team Providers Name Role Phone Unavailable Primary Care Provider Unavailable Encounter Details Date Type Department Care Team Description 07/06/2018 Orders Only Department of Venkata Mayen Ischemic Heart Chronic Disease (Primary Dx); Cardiovascular Medicine Gus Rivera Hyperlipidemia On Treatment; in [facility] pretty [address] [facility] [place] Metabolic Syndrome; [address] [place], [place] [phone] Social History Tobacco Use Types Packs/Day Years Used Date Smoking Tobacco: Former Alcohol Habits Answer Date Recorded How often do you have a drink containing 4 or more times a w [place] 11/13/2021 alcohol? How many drinks [...] or relatives? How often do you attend sabianist or More than 4 times per year 11/13/2021 pentecostalism services? Do you belong to any clubs or Yes 11/13/2021 organizations such as sabianist groups, unions, fraternal or athletic groups, or [...] slept in a senior living (including now)? Sex Assigned at Date Recorded Female 05/03/2021 9:58 AM [employer] documented as of this encounter Plan of Treatment Not on filedocumented as of this encounter Results ECG 12 Lead (09/02/2018 10:13 AM CDT) P athologist Signature Ventricular Rate 61 BPM MUSE ECG/Min SC Interval 160 ms MUSE QRSD Interval 86 ms MUSE QT Interval 442 ms MUSE QTC Interval 444 ms MUSE P Margaret 53 degrees MUSE R Margaret 44 degrees MUSE T Wave Margaret 27 degrees MUSE Specimen Anatomical Collection Method Collection Time Receive d Time (Source) Location / / Volume Laterality 09/02/2018 10:13 09/02/2018 AM CDT 10:19 AM CDT Impressions MUSE - 09/02/2018 10:19 AM CDT Normal sinus rhythm Normal ECG When compared with ECG of 06-JAN-2017 09 :22, No significant change was found Narrative This result has an attachment that is no t available. Procedure Note Surendra Yip M.D. - 09/02/2018Formatt ing of this note might be different from the original. IMPRESSION: Normal sinus rhythm Normal ECG When compared with ECG of 06-JAN-2017 09 :22, No significant change was found Venkata Mayen M.D. ECG ORDERABLES Performing Organization Address City/State/ZIP Code Phon e Number MUSE MUSE NA DX Chest AP or PA and [...] be external to the pa tient. Venkata Mayen M.D. IMG DIAGNOSTIC IMAGING PROCE [facility] CBC without Differential (09/02/2018 8:45 AM CDT) P athologist Signature Hemoglobin 12.8 11.6 - 09/02/2018 15.0 g/dL 9:03 AM CDT Hematocrit 40.4 35.5 - 09/02/2018 44.9 % 9:03 AM CDT Erythrocytes 4.53 3.92 - 09/02/2018 5.13 9:03 AM CDT x10(12)/L MCV 89.2 78.2 - 09/02/2018 97.9 fL 9:03 AM CDT RBC Distrib Width 13.3 12.2 - 09/02/2018 16.1 % 9:03 AM CDT Platelet Count 166 157 - 371 09/02/2018 x10(9)/L 9:03 AM CDT Leukocytes 6.6 3.4 - 9.6 09/02/2018 x10(9)/L 9:03 AM CDT Specimen Anatomical Collection Method Collection Time Receive d Time (Source) Location / / Volume Laterality Blood (Blood, 09/02/2018 8:45 AM 09/03/19 19 8:55 Venous) CDT AM CDT Venkata Mayen M.D. LAB BLOOD ADD-ON Performing Organization Address City/[facility]/ZIP Code Phon e Number [facility] - [address] [place] [phone] [facility] Hemoglobin A1c (09/02/2018 8:45 AM CDT) athologist Signature Hemoglobin A1c, 5.6 4.0 - 5.6 09/02/2018 B % 9:18 AM CDT Specimen Anatomical Collection Method Collection Time Receive d Time (Source) Location / / Volume Laterality Blood (Blood, 09/02/2018 8:45 AM 09/03/19 19 8:55 Venous) CDT AM CDT Venkata Mayen M.D. LAB BLOOD ADD-ON Performing Organization Address City/[facility] Code Phon e Number [facility] - [address] [place] [phone] [facility] (ABNORMAL) Lipid Panel (09/02/2018 8:45 AM CDT) athologist [facility] Cholesterol, 115 mg/dL 09/02/2018 Total 10:12 AM CDT Comment: ----REFERENCE VALUE---- Desirable: < 200 Borderline high: 200 - 239 High: > or = 240 Triglycerides 122 mg/dL 09/02/2018 10:12 AM CDT Comment: ----REFERENCE VALUE---- Normal: <150 Borderline high: 150-199 High: 200-499 Very high: > or =500 Cholesterol, HDL, S 40 (L) >=50 mg/dL 09/02/2018 10:12 AM CDT Calculated LDL 51 mg/dL 09/02/2018 10:12 AM CDT Comment: ----REFERENCE VALUE---- Desirable: <100 Above Desirable: 100-129 Borderline high: 130-159 High: 160-189 Very high: > or =190 Cholesterol, Non-HDL, Calculated 75 mg/dL 019 10:12 AM CDT Comment: ----REFERENCE VALUE---- Desirable: <130 Above Desirable: 130-159 Borderline high: 160-189 High: 190-219 Very high: > or =220 Specimen Anatomical Collection Method Collection Time Receive d Time (Source) Location / / Volume Laterality Blood (Blood, 09/02/2018 8:45 AM 09/03/19 19 8:55 Venous) CDT AM CDT Venkata Mayen M.D. LAB BLOOD ADD-ON Performing Organization Address City/State/ZIP Code Phon e Number [facility] - [address] [place], [place] [phone] [facility] Comprehensive Metabolic Panel (09/02/2018 8:45 AM CDT) P athologist Signature Potassium, S 4.7 3.6 - 5.2 09/02/2018 mmol/L 10:12 AM CDT Sodium, S 141 135 - 145 09/02/2018 mmol/L 10:12 AM CDT Chloride, S 99 98 - 107 09/02/2018 mmol/L 10:12 AM CDT Bicarbonate, S 29 22 - 29 09/02/2018 mmol/L 10:12 AM CDT Anion Gap 13 7 - 15 09/02/2018 10:12 AM CDT BUN (Blood Urea 14 6 - 21 09/02/2018 Nitrogen), S mg/dL 10:12 AM CDT Creatinine 0.71 0.59 - 09/02/2018 1.04 mg/dL 10:12 AM CDT eGFR-Non 87 >=60 09/02/2018 Black/ mL/min/BSA 10:12 AM CDT [place] Comment: ----ADDITIONAL INFORMATION---- Estimated GFR calculated using the 2009 CKD_EPI creatinine equation. eGFR-Black/ >90 >=60 mL/min/BSA 2018 10:12 AM CDT Comment: ----ADDITIONAL INFORMATION---- Estimated GFR calculated using the 2009 CKD_EPI creatinine equation. Calcium, Total, S 9.5 8.8 - 10.2 mg/dL 09/02/2018 10:1 2 AM CDT Glucose, S 124 70 - 140 mg/dL 09/02/2018 10:12 AM CDT Protein, Total, S 6.4 6.3 - 7.9 g/dL 09/02/2018 10:12 AM CDT Albumin, S 4.3 3.5 - 5.0 g/dL 09/02/2018 10:12 AM CDT Aspartate Aminotransferase (AST), 28 8 - 43 U/L 09/02 10:12 AM CDT S Alkaline Phosphatase, S 51 35 - 104 U/L 09/02/2018 10 :12 AM CDT Alanine Aminotransferase (ALT), S 28 7 - 45 U/L 09/02 10:12 AM CDT Bilirubin, Total, S 0.5 <=1.2 mg/dL 09/02/2018 10:12 A M CDT Specimen Anatomical Collection Method Collection Time Receive d Time (Source) Location / / Volume Laterality Blood (Blood, 09/02/2018 8:45 AM 09/03/19 19 8:55 Venous) CDT AM CDT Venkata Mayen M.D. LAB BLOOD ADD-ON Performing Organization Address City/State/ZIP Code Phon e Number [facility] - [address] [place] [phone] [facility] documented in this encounter Visit Diagnoses Diagnosis Ischemic Heart Chronic Disease - Primary Hyperlipidemia On Treatment Metabolic Syndrome Hyperglycemia Hyperlipidemia On Treatment Ischemic Heart Chronic Disease Metabolic Syndrome documented in this encounter Additional Health Concerns Assessment Noted Time PHQ-9 Depression Total Score: 6 08/20/2012 4:08 PM CDT documented as of this encounter
[2022-01-10 10:31] LABS: Chloride* 98 mmol/L (96-114); Sodium* 139 mmol/L (135-149)
[2022-01-10 10:32] LABS: Potassium* 4.4 mmol/L (3.6-5.1)
[2022-01-10 10:34] LABS: Blood Urea Nitrogen* 16 mg/dL (7-30); Carbon Dioxide* 31 mmol/L (20-32); Creatinine* 0.8 mg/dL (0.5-1.5); Estimated Glomerular Filt Rate 77 ml/min
[2022-01-10 10:35] LABS: Calcium* 9.2 mg/dL (8.4-10.6); Glucose* 119 mg/dL (60-115)
== END 2022-01-10 08:56 | disposition home or self-care (01) ==
LOC: NFLDREF 08:55
PROVIDERS: PCP Family Medicine; Visit Provider Family Medicine
DX: I50.30 Unspecified diastolic (congestive) heart failure (principal)
CPT/HCPCS: 80048

== ENCOUNTER 2022-12-09 08:08 | Outpatient (CLI) | payer MEDICARE, BC, SELFPAY ==
--- NOTE | 2022-12-09 08:15 | CRLHL7_ITS ---
For Patients: As a result of the Cures Act, medical imaging exams and procedure reports are released immediately into your electronic medical record. You may view this report before your referring provider. If you have questions, please contact your health care provider. BILATERAL SCREENING MAMMOGRAM WITH COMPUTER-AIDED DETECTION AND TOMOSYNTHESIS TECHNIQUE: CC and MLO views were obtained. These mammographic images have been obtained using full-field digital technique. These mammographic images were interpreted with the benefit of computer-aided detection. Breast Tomosynthesis was used in this interpretation. COMPARISON FILM: 12/07/21, 11/08/20, . FINDINGS: There are scattered areas of fibroglandular density IMPRESSION: There is no radiographic evidence for malignancy. ASSESSMENT: BI-RADS Category 2: Benign RECOMMENDATION: Routine screening mammogram in 1 year. A lay language report of this examination will be provided to the patient. Harjinder Crane M.D. Diagnostic Radiologist [email or web address] Transcribed: 1:26 p.shin ramírez/Dictated by: Harjinder Crane MD @ 12/09/2022 12:25:00 PM (Electronically Signed)
== END 2022-12-09 08:09 | disposition home or self-care (01) ==
LOC: MAMMO 08:09
PROVIDERS: PCP Family Medicine; Visit Provider Family Medicine
DX: Z12.31 Encounter for screening mammogram for malignant neoplasm of breast (principal)
CPT/HCPCS: 77063; 77067

== ENCOUNTER 2022-12-12 09:28 | Outpatient (REF) | payer MEDICARE, BC, SELFPAY ==
[2022-12-12 09:42] LABS: Chloride* 99 mmol/L (96-114); Sodium* 138 mmol/L (135-149)
[2022-12-12 09:43] LABS: Potassium* 4.1 mmol/L (3.6-5.1)
[2022-12-12 09:45] LABS: Anion Gap 6 mEq/L (7-15); Carbon Dioxide* 33 mmol/L (20-32); Creatinine* 0.7 mg/dL (0.5-1.5); Estimated Glomerular Filt Rate 91 ml/min
[2022-12-12 09:46] LABS: Blood Urea Nitrogen* 18 mg/dL (7-30); Calcium* 9.5 mg/dL (8.4-10.6); Glucose* 108 mg/dL (60-115)
== END 2022-12-12 09:29 | disposition home or self-care (01) ==
LOC: NPINS 09:28
PROVIDERS: PCP Family Medicine; Visit Provider Internal Medicine Cardiovascular Disease
DX: R06.09 Other forms of dyspnea (principal)
CPT/HCPCS: 80048

== ENCOUNTER 2022-12-23 08:41 | Outpatient (CLI) | payer MEDICARE, BC, SELFPAY | END 2022-12-23 08:42 | disposition home or self-care (01) | LOC: NFLDREF 12-25 13:09 | PROVIDERS: PCP Family Medicine; Referring Provider Family Medicine; Visit Provider Family Medicine | DX: I10 Essential (primary) hypertension (principal); E55.9 Vitamin D deficiency, unspecified | CPT/HCPCS: 80053; 82306 ==

== ENCOUNTER 2023-01-06 07:59 | Outpatient (CLI) | payer MEDICARE, BC, SELFPAY | END 2023-01-06 08:00 | disposition home or self-care (01) | LOC: NFLDREF 01-07 19:49 | PROVIDERS: PCP Family Medicine; Referring Provider Family Medicine; Visit Provider Family Medicine | DX: I10 Essential (primary) hypertension (principal); I25.10 Atherosclerotic heart disease of native coronary artery without angina pectoris; R73.03 Prediabetes | CPT/HCPCS: 80048 ==

== ENCOUNTER 2023-01-22 07:50 | Outpatient (CLI) | payer MEDICARE, BC, SELFPAY | END 2023-01-22 07:51 | disposition home or self-care (01) | LOC: NFLDREF 01-24 11:18 | PROVIDERS: PCP Family Medicine; Referring Provider Family Medicine; Visit Provider Family Medicine | DX: I10 Essential (primary) hypertension (principal); I50.30 Unspecified diastolic (congestive) heart failure | CPT/HCPCS: 80048 ==

== ENCOUNTER 2023-08-27 07:46 | Outpatient (CLI) | payer MEDICARE, BC, SELFPAY ==
--- OUTSIDE RECORDS SUMMARY | 2023-08-31 10:34 | XMS_ITS | Clinical Summary ---
Author Organization [facility] Address [address] [place] [address] Care Team Providers Care Director Personal Name Role Phone Elsewhere, Pcp Primary Care Provider Unavailabl e Source Comments Patient records contain information from all sites at [facility]. For routine questions regarding patient records, call [phone] during business hours, M-F 8:00 AM - 5:00 PM Central Time. Record requests for emergency care only can be directed to [phone] at any time.[facility] Allergies Active Allergy Reactions Criticality Noted Date Comments Sulfa (Sulfonamide Antibiotics) Other (see comments) 10/10/2009 Medications Medication Sig Dispensed Refills Start Date End Date Status cholecalciferol (VITAMIN D3) 2,000 Unit capsule Take 2,000 Units by mouth daily. Active ezetimibe (ZETIA) 10 mg tablet Take 10 mg by mouth at bedtime. 07/31/2018 Active nitroglycerin (NITROSTAT) 0.[address] 0.4 mg under the tongue as needed for chest pain. Active rosuvastatin (CRESTOR) 40 mg tablet Take 1 tablet by mouth at bedtime. 06/08/2012 Active sertraline (ZOLOFT) 100 mg tablet Take 1 tablet by mouth at bedtime. 06/08/2012 Active calcium carbonate (CALCIUM 500 ORAL) Take 2 tablets by mouth daily. Active albuterol 90 mcg/actuation inhaler Inhale 2 puffs every 4 (four) hours as needed. Active aspirin 81 mg chewable tablet Chew 1 tablet (81 mg total) daily. 90 tablet 3 12/28/2020 Active miscellaneous medical supply [facility] CPAP machine for home use at pressure 5-16 cmw, nasal mask x1/3month with nasal pillows x 2/mo 12/20/2020 Active ramipriL (ALTACE) 5 mg capsule Take 2 capsules (10 mg total) by mouth daily. 180 capsule 3 04/12/2021 Active verapamiL (CALAN-SR) 240 mg ER tablet Take 1 tablet (240 mg total) by mouth at bedtime. 90 tablet 3 05/09/2021 Active potassium chloride (KLORCON/K-TAB) 10 mEq ER tablet Take 1 tablet (10 mEq total) by mouth daily with breakfast. Do not crush or chew. 90 tablet 3 11/23/2021 Active cyanocobalamin, vitamin B-12, (VITAMIN B-12 ORAL) Take 1 tablet by mouth daily. Active empagliflozin (JARDIANCE) 10 mg tablet Take 1 tablet (10 mg total) by mouth every morning before breakfast. 90 tablet 3 11/27/2022 Active furosemide (LASIX) 40 mg tablet Take 1 tablet (40 mg total) by mouth daily. 90 tablet 3 11/27/2022 Active spironolactone (ALDACTONE) 25 mg tablet 1 tablet Orally 04/14/2023 Active fluticasone propionate (FLONASE) 50 mcg/actuation nasal spray 1 spray in each nostril Nasally Twice a day for 30 days 04/22/2023 Active Active Problems Problem Noted Date Diagnosed Date Cardiac Disease 11/21/2021 Regurgitation Mitral 11/19/2021 Overview: Added automatically from request for surgery [id number] Chronic Diastolic (Congestive) Heart Failure Overview: Added automatically from request for surgery [id number] Pain Chest 11/19/2021 Overview: Added automatically from request for surgery [id number] Atherosclerotic Heart Diseas e Of [place] Coronary Artery Without Angina Pectoris 11/14/2020 Coronary Artery Disease Without Angina Pectoris 09/02/2018 Apnea Sleep Obstructive 09/02/2018 Obesity Body Mass Index 30-39.9 Adult 09/02/2018 Impaired Fasting Glucose 09/02/2018 Cancer Breast Personal History 09/02/2018 Dyspnea On Exertion 08/10/2014 Hypertensive Heart Disease Without Heart Failure 06/08/2012 Ischemic Heart Chronic Disease 06/08/2012 Hyperlipidemia On Treatment 06/08/2012 Encounters Date Type Department Care Team Description 08/01/2023 Orders Only Department of Cardiovascular Medicine in [place], [place] [address] [place] [phone] Venkata Mayen M.D. 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 Appt Request from Last 3 Months Immunizations Name Administration Dates Next Due SARS-COV-2 (COVID-19) - PFIZ ER (Discontinued)(12 years or older) 05/31/2020,05/11/2020 Family History Medical History Relation Name Comments Coronary artery disease Brother polina baxter Coronary artery disease Father raysa baxter Hypertension Father raysa baxter Diabetes Maternal Grandfather josiah conway Breast cancer Maternal Grandmother josiah conway deceac ed Breast cancer Mother wendy baxter Breast cancer Paternal Grandmother augusta baxter dec eased Breast cancer Sister 1 kandace jayden Hyperlipidemia Sister 1 kandace jayden Lymphoma Sister 1 kandace jayden Breast cancer Sister 2 [place] man[place] Colon cancer Sister 2 pey[place] manoj Lung cancer Sister 2 pe[place] manoj Breast cancer Sister 3 joe mendiola Relation Name Status Comments Brother polina baxter Father raysa baxter Maternal Grandfather josiah conway Maternal Grandmother josiah conway Mother wendy [place] Paternal Grandmother augusta baxter Sister 1 kandace jayden Sister 2 peyton manoj Sister 3 joe mendiola Social History Tobacco Use Types Packs/Day Years Used Date Smoking Tobacco: Former Cigarettes 0 08/27/1965 - 04/01/1979 Passive Smoke Exposure: Past Smokeless Tobacco: Never Alcohol Use Standard Drinks/Week Comments Yes 10 (1 standard drink = 0.6 oz pu re alcohol) [facility] Utilities Answer Date Recorded In the past 12 months has [facility] [employer] gas, oil, or water [employer] threatened to shut off services in your home? No 07/17/2023 Humiliation, Afraid, Rape, and Kick questionnair e Answer Date Recorded Within the last year, have y ou been afraid of your partner or ex-partner? No 11/12/2021 Within the last year, have y ou been humiliated or emotionally abused in other ways by your partner or ex-partner? No Within the last year, have y ou been kicked, hit, slapped, or otherwise physically hurt by your partner or ex-partner? No 11/12/2021 Within the last year, have y ou been raped or forced to have any kind of sexual activity by your partner or ex-partner? No 11/12/2021 Social Connection and Isolat ion Panel [NHANES] Answer Date Recorded In a typical week, how many times do you talk on the phone with family, friends, or neighbors? More than three times a week 11/12/2021 How often do you get togethe r with friends or relatives? Patient declined 11/12/2021 How often do you attend formerly [facility] or denominational services? More than 4 times per year 11/12/2021 Do you belong to any clubs o r organizations such as baptist groups, unions, fraternal or athletic groups, or school groups? Yes 11/12/2021 How often do you attend meet ings of the clubs or organizations you belong to? Never 11/12/2021 Are you , , di vorced, , never , or living with a partner? 11/12/2021 AUDIT-C Answer Date Recorded Q1: How often do you have a drink containing alcohol? 4 or more times a week 11/12/2021 Q2: How many drinks containi ng alcohol do you have on a typical day when you are drinking? 1 or 2 2 Q3: How often do you have si x or more drinks on one occasion? Less than monthly 11/12/2021 Overall Financial Resource Strain (CARDIA) Answe r Date Recorded How hard is it for you to pa y for the very basics like food, housing, medical care, and heating? Not hard at all 11/12/2021 [facility] - Occupational Stress Questionnaire Answer Date Recorded Do you feel stress - tense, restless, nervous, or anxious, or unable to sleep at night because your mind is troubled all the time - these days? Only a little 11/12/2021 Exercise Vital Sign Answer Date Recorde d On average, how many days pe r week do you engage in moderate to strenuous exercise (like a brisk walk)? 0 days 07/17/2023 On average, how many minutes do you engage in exercise at this level? 0 min 07/17/2023 Hunger Vital Sign Answer Date Recorded Within the past 12 months, y ou worried that your food would run out before you got the money to buy more. Never true 07/17/19 Within the past 12 months, t he food you bought just didn't last and you didn't have money to get more. Never true 07/17/2023 PRAPARE - Transportation Answer Date Re corded In the past 12 months, has l ack of transportation kept you from medical appointments or from getting medications? No 06/23 In the past 12 months, has l ack of transportation kept you from meetings, work, or from getting things needed for daily living? No 07/17/2023 Nutrition Answer Date Recorded On average, how many serving s of fruits and vegetables do you eat per day (serving size is equal to 1 cup or approximately the size of a tennis ball)? 3-5 07/17/2023 Dental Answer Date Recorded Dental: Regular Dentist Yes 07/17/19 Employment Answer Date Recorded Employment status Retired 07/17/2023 Housing Stability Answer Date Recorded What is your living situation today? I have a [facility] place to live 07/17/2023 Education Answer Date Recorded What is the highest level of school you have completed or the highest degree you have received? 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 Pulse 90 07/23/2023 1:51 PM CDT Temperature 36.7 ??C (98.1 ??F) 11/23/2021 1 1:58 AM CDT Respiratory Rate 18 11/23/2021 12:0 0 PM CDT Oxygen Saturation 96% 11/23/2021 12: 00 PM CDT Inhaled Oxygen Concentration - - Weight 99.2 kg (218 lb 11.1 oz) 07/23/2023 2:38 PM CDT Height 158.5 cm (5' 2.4) 11/27/2022 12 :46 PM CDT Body Mass Index 39.49 11/27/2022 12:46 PM CDT Plan of Treatment Upcoming Encounters Date Type Department Care Team (Late st Contact Info) Description 09/24/2023 9:15 AM CDT Appointment Department of Cardiovascular Diseases in [place], [place] [address] [place] [phone] Venkata Mayen M.D. [address] [place] [phone] 09/24/2023 11:00 AM CDT Office Visit Department of Cardiovascular Medicine in [place], [place] [address] [place] [phone] Venkata Mayen M.D. [address] [place] [phone] Health Maintenance Due Date Last Done Comments Bone Density Scan (Osteoporo sis Screen) 1948 CT Colonography 1950 Cologuard 1950 Hepatitis C Screening 1950 Colonoscopy 03/24/2014 03/24/2009 (Perf ormed elsewhere) Colorectal Cancer Surveillance 03/24/2014 Mammogram 07/22/2017 07/22/2016 (Perf ormed elsewhere), 07/07/2014 (Performed elsewhere) COVID-19 Vaccine (2022-04 4 season) 2022 01/11/2022, 08/22/2021, 12/20/2020, Additional history exists Depression Screening (Annual PHQ-2) 03/24/2023 Creatinine Level (Kidney Fun ction Test) 07/22/2024 07/23/2023, 12/03/2022, 11/27/2022, Additional history exists Fasting Glucose for Diabetes Screening 07/22/2024 07/23/2023, 07/23/2023, 12/03/2022, Additional history exists Office Visit for Blood Press ure Check / Re-check 07/22/2024 07/23/2023 Potassium Level 07/22/2024 07/23/2023, 11/22, 11/27/2022, Additional history exists Sodium Level 07/22/2024 07/23/2023, 11/22, 11/27/2022, Additional history exists DTaP,Tdap,and Td Vaccines (2 - Td or Tdap) 07/23/2026 07/23/2016 Lipid (Cholesterol) Screening 07/22/2028, 11/27/2022, 11/12/2021, Additional history exists Pneumococcal vaccine (65+ years) Completed 01/26/20, 02/25/2013 Zoster Vaccines Completed 07/23/2022, 04/17/2022 Influenza Vaccine Completed 12/25/2022, , 03/08/2021, Additional history exists Fall Risk Screen (Annual) Completed 07/23/2023 Medical Devices Implanted Type Area District Captain Device Identifier Shelf Expiration Date Model / Serial / Lot Cardiac Stent Cardiac Stent Heart Description:5 cardiac stents Stnt Synergy Xd De 3.50x38 - [id number] Implanted:Qty : 1 on 11/14/2020 by Dontae Rubio M.D. at [facility] Cardiac Stent N/A: Coronary [employer] 06/08/2022 [id number] / / [id number] Description:Mid RCA Stnt Synergy Xd De 4.00x24 - [id number] Implanted:Qty : 1 on 11/14/2020 by Dontae Rubio M.D. at [facility] Cardiac Stent N/A: Coronary [employer] 09/19/2021 [id number] / / [id number] Description:Prox RCA Stnt Ronyx Kenji Rx 4x18 - [id number] Implanted:Qty : 1 on 11/22/2021 by Kishan Patricia M.D., Ph.D. at [facility] Cardiac Stent N/A: Coronary [employer] 06/27/2024 [id number] / / [id number] Description:Ost RCA Hardware E.G. Pins/Screws/R ods Hardware e.g. 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 CBC WITHOUT DIFFERENTIAL, B Routine 07/23/2023 1:03 PM CDT Dyspnea On Exertion Ischemic Heart Chronic Disease Hyperlipidemia On Treatment Regurgitation Mitral Chronic Diastolic (Congestive) Heart Failure (HCC) 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 COMPREHENSIVE METABOLIC PANEL, S/P Routine 07/23/2023 1:03 PM CDT Dyspnea On Exertion Ischemic Heart Chronic Disease Hyperlipidemia On Treatment Regurgitation Mitral Chronic Diastolic (Congestive) Heart Failure (HCC) 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 LIPID PANEL, S Routine 07/23/2023 1:03 PM CDT Dyspnea On Exertion Ischemic Heart Chronic Disease Hyperlipidemia On Treatment Regurgitation Mitral Chronic Diastolic (Congestive) Heart Failure (HCC) 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 HEMOGLOBIN A1C, B Routine 07/23/2023 1:0 3 PM CDT Dyspnea On Exertion Ischemic Heart Chronic Disease Hyperlipidemia On Treatment Regurgitation Mitral Chronic Diastolic (Congestive) Heart Failure (HCC) 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 NT-PRO B-TYPE NATRIURETIC PEPTIDE (BNP), S Routine 07/23/2023 1:03 PM CDT Dyspnea On Exertion Ischemic Heart Chronic Disease Hyperlipidemia On Treatment Regurgitation Mitral Chronic Diastolic (Congestive) Heart Failure (HCC) 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 from Last 3 Months Results * (TTE) 2D ECHO DOPPLER COLOR (07/23/2023 4:24 PM CDT) Ejection Fraction 67 MC CV EIMS LV End-Diastolic Diameter 56 MC CV EIMS LV End-Systolic Diameter 34 MC CV EIMS Left ventricular stroke volume index 39 MC CV EIMS Cardiac Output 7.07 MC CV EIMS Cardiac Index 3.53 MC CV EIMS TR Vmax 3.01 MC CV EIMS RA Pressure 5 MC CV EIMS RV Systolic Pressure 41 MC CV EIMS MV mean gradient 7 MC CV EIMS MV regurgitant volume 51 MC CV EIMS Anatomical Region Laterality Modality Echocardiography 07/23/2023 3:45 PM CDT Impressions 07/23/2023 4:52 PM CDT Echocardiogram performed per left ventricular function protocol. Last full echocardiogram performed 12/03/2022. LEFT VENTRICLE:Mildly enlarged left ventricular chamber size. Borderline increased concentric left ventricular wall thickness. Calculated 2-D linear left ventricular ejection fraction 67%. Left ventricular stroke volume index 39 ml/m2. No regional wall motion abnormalities. Elevated left ventricular filling pressure. RIGHT VENTRICLE:Mildly enlarged right ventricular chamber size. Normal right ventricular systolic function. Estimated right ventricular systolic pressure 41 mmHg (right atrial pressure of 5 mmHg). ATRIA:Severely enlarged left atrial size. Mildly enlarged right atrial size. CARDIAC VALVES:Trileaflet aortic valve. Sclerotic aortic valve. No aortic valve regurgitation. Severely calcified mitral annulus. Mild ??mitral valve stenosis. Mitral valve diastolic mean Doppler gradient 7 mmHg (heart rate 94 BPM). Moderate-severe mitral valve regurgitation. Mitral regurgitation ERO (PISA) 0.31 cm2. Mitral regurgitant volume (PISA) 51 ml. Normal tricuspid valve. Mild tricuspid valve regurgitation. OTHER ECHO FINDINGS:Normal inferior vena cava size with normal inspiratory collapse (>50%). No ??pericardial effusion. For the complete report, see the Order-Level Documents. Narrative 07/23/2023 4:52 PM CDT For the complete report, see the Order-Level Documents. Hemodynamics Heart Rate: 98 BPM Blood Pressure: 134 / 86 mmHg ECG: Sinus rhythm Final Impressions 1. Echo findings are consistent with hypertensive heart disease with degenerative mitral valve disease with moderate mitral regurgitation. 2. Severely calcified mitral annulus with calcification of the valve leaflets and chordae. ??Mild calcific mitral stenosis. ??Diastolic mean pressure gradient 7 mmHg (HR: 94 BPM). 3. Moderate-severe mitral valve regurgitation. Regurgitant volume 51 ml, ERO 0.31 cm? (PISA). 4. Mildly enlarged left ventricular chamber size. Calculated ejection fraction 67%. 5. No regional wall motion abnormalities. 6. Mildly enlarged right ventricular chamber size and systolic function. 7. Estimated right ventricular systolic pressure 41 mmHg (right atrial pressure of 5 mmHg). 8. Normal inferior vena cava size with normal inspiratory collapse (>50%). 9. Compared to the report of 12/03/2022 no significant change has occurred. Side by side comparison of images performed. Procedure Note Tito Edmondson M.D. - 07/23/2023 For the complete report, see the Order-Level Documents. Hemodynamics Heart Rate: 98 BPM Blood Pressure: 134 / 86 mmHg ECG: Sinus rhythm Final Impressions 1. Echo findings are consistent with hypertensive heart disease withdegenerative mitral valve disease with moderate mitral regurgitation. 2. Severely calcified mitral annulus with calcification of the valveleaflets and chordae. Mild calcific mitral stenosis. Diastolic meanpressure gradient 7 mmHg (HR: 94 BPM). 3. Moderate-severe mitral valve regurgitation. Regurgitant volume 51 ml,ERO 0.31 cm? (PISA). 4. Mildly enlarged left ventricular chamber size. Calculated ejectionfraction 67%. 5. No regional wall motion abnormalities. 6. Mildly enlarged right ventricular chamber size and systolic function. 7. Estimated right ventricular systolic pressure 41 mmHg (right atrialpressure of 5 mmHg). 8. Normal inferior vena cava size with normal inspiratory collapse(>50%). 9. Compared to the report of 12/03/2022 no significant change hasoccurred. Side by side comparison of images performed. Findings Echocardiogram performed per left ventricular function protocol. Last fullechocardiogram performed 12/03/2022. LEFT VENTRICLE:Mildly enlarged left ventricular chamber size. Borderlineincreased concentric left ventricular wall thickness. Calculated 2-Dlinear left ventricular ejection fraction 67%. Left ventricular strokevolume index 39 ml/m2. No regional wall motion abnormalities. Elevatedleft ventricular filling pressure. RIGHT VENTRICLE:Mildly enlarged right ventricular chamber size. Normalright ventricular systolic function. Estimated right ventricular systolicpressure 41 mmHg (right atrial pressure of 5 mmHg). ATRIA:Severely enlarged left atrial size. Mildly enlarged right atrialsize. CARDIAC VALVES:Trileaflet aortic valve. Sclerotic aortic valve. No aorticvalve regurgitation. Severely calcified mitral annulus. Mild mitral valvestenosis. Mitral valve diastolic mean Doppler gradient 7 mmHg (heart rate94 BPM). Moderate-severe mitral valve regurgitation. Mitral regurgitationERO (PISA) 0.31 cm2. Mitral regurgitant volume (PISA) 51 ml. Normaltricuspid valve. Mild tricuspid valve regurgitation. OTHER ECHO FINDINGS:Normal inferior vena cava size with normal inspiratorycollapse (>50%). No pericardial effusion. For the complete report, see the Order-Level Documents. Venkata Mayen M.D. CV ECHO PROCEDURES * ECG 12 Lead (07/23/2023 1:16 PM CDT) Ventricular Rate ECG/Min 94 BPM MUSE NV Interval 152 ms MUSE QRSD Interval 86 ms MUSE QT Interval 358 ms MUSE QTC Interval 447 ms MUSE P [place] 47 degrees MUSE R [place] 38 degrees MUSE T Wave [place] 18 degrees MUSE 07/23/2023 1:16 PM CDT 07/23/2023 1:28 PM CDT Impressions MUSE - 07/23/2023 1:29 PM CDT Normal sinus rhythm Normal ECG When compared with ECG of 27-Nov-2022 11:38, No significant change was found Reviewed by LOGAN Vera Narrative Procedure Note Jade Lawrence M.D., Ph.D. - 07/23/2023 IMPRESSION: Normal sinus rhythm Normal ECG When compared with ECG of 27-Nov-2022 11:38, No significant change was found Reviewed by LOGAN Vera Venkata Mayen M.D. ECG ORDERABLES MUSE NA * (ABNORMAL) Lipid Panel (07/23/2023 1:03 PM CDT) Triglycerides 98 mg/dL 07/23/2023 3:19 PM CDT DTL Comment: ----REFERENCE VALUE---- Normal: <150 mg/dL Borderline High: 150-199 mg/dL High: 200-499 mg/dL Very High: > or =500 mg/dL Cholesterol, Total 140 mg/dL 2023 3:19 PM CDT DTL Comment: ----REFERENCE VALUE---- Desirable: < 200 mg/dL Borderline High: 200 - 239 mg/dL High: > or = 240 mg/dL Cholesterol, LDL, Calculated 75 mg/dL 07/23/2023 3:19 PM CDT DTL Comment: ----REFERENCE VALUE---- Desirable: <100 mg/dL Above Desirable: 100-129 mg/dL Borderline High: 130-159 mg/dL High: 160-189 mg/dL Very High: >=190 mg/dL ----ADDITIONAL INFORMATION---- LDL cholesterol calculated using the Francisco/NIH equation. Cholesterol, HDL, S 47(L) >=50 mg/dL 07/23/2023 3:19 PM CDT DTL Cholesterol, Non-HDL, Calculated 93 mg/dL 07/23/2023 3:19 PM CDT DTL Comment: ----REFERENCE VALUE---- Desirable: <130 mg/dL Above Desirable: 130-159 mg/dL Borderline High: 160-189 mg/dL High: 190-219 mg/dL Very High: > or =220 mg/dL Fasting (8 HR or more) No 07/23/2023 1:35 PM CDT DTL Blood (Blood, Venous) 07/23/2023 1:03 PM CDT 07/23/2023 1:35 PM CDT Venkata Mayen M.D. LAB BLOOD ADD-ON [facility] [address] [place] [address], [facility] [address] [place] [address] * NT-Pro B-Type Natriuretic Peptide (BNP) (07/23/2023 1:03 PM CDT) NT-Pro BNP 272 <=540 pg/mL 07/23/2023 3:19 PM CDT DTL Comment: NT-proBNP values less than 300 pg/mL have a 99% negative predictive value for excluding acute congestive heart failure. A cutoff of 1200 pg/mL for patients with an eGFR<60 yields a diagnostic sensitivity and specificity of 89% and 72% for acute congestive heart failure. A diagnostic NT-proBNP cutoff of 900 pg/mL has been suggested in adults 50-75 years of age in the absence of renal failure. Blood (Blood, Venous) 07/23/2023 1:03 PM CDT 07/23/2023 1:35 PM CDT Venkata Mayen M.D. LAB BLOOD ADD-ON Performing Organization Address City/[facility]/ZIP Co de Phone Number [facility] [address] [place], [place] [phone] [place] [address] [facility] [address] [place] [address] * CBC without Differential (07/23/2023 1:03 PM CDT) Hemoglobin 13.3 11.6 - 15.0 g/dL 07/23/2023 1:37 PM CDT DTL Hematocrit 41.9 35.5 - 44.9 % 07/23/2023 1:37 PM CDT DTL Erythrocytes 4.74 3.92 - 5.13 x10(12)/L 07/23/2023 1:37 PM CDT DTL MCV 88.4 78.2 - 97.9 fL 07/23/2023 1:37 PM CDT DTL RBC Distrib Width 14.0 12.2 - 16.1 % 07/23/2023 1:37 PM CDT DTL Platelet Count 162 157 - 371 x10(9)/L 07/23/2023 1:37 PM CDT DTL Leukocytes 7.9 3.4 - 9.6 x10(9)/L 07/23/2023 1:37 PM CDT DTL Blood (Blood, Venous) 07/23/2023 1:03 PM CDT 07/23/2023 1:28 PM CDT Venkata Mayen M.D. LAB BLOOD ADD-ON Performing Organization Address City/[facility]/ZIP Co de Phone Number [facility] [address] [place] [address], [facility] [address] [place] [address] * (ABNORMAL) Hemoglobin A1c (07/23/2023 1:03 PM CDT) Hemoglobin A1c, B 5.8(H) 4.0 - 5.6 % 07/23/2023 1:47 PM CDT DTL Comment: Hemoglobin A1c values of 5.7-6.4 percent indicate an increased risk for developing diabetes mellitus. In diabetic patients, HbA1c goals should be discussed with healthcare provider. Blood (Blood, Venous) 07/23/2023 1:03 PM CDT 07/23/2023 1:28 PM CDT Venkata Mayen M.D. LAB BLOOD ADD-ON [facility] [address] [place] [address], [facility] [address] [place] [address] * Comprehensive Metabolic Panel (07/23/2023 1:03 PM CDT) Potassium, S 4.7 3.6 - 5.2 mmol/L 07/23/2023 3:19 PM CDT DTL Sodium, S 141 135 - 145 mmol/L 07/23/2023 3:19 PM CDT DTL Chloride, S 100 98 - 107 mmol/L 07/23/2023 3:19 PM CDT DTL Bicarbonate, S 27 22 - 29 mmol/L 07/23/2023 3:19 PM CDT DTL Anion Gap 14 7 - 15 07/23/2023 3:19 PM CDT DTL BUN (Blood Urea Nitrogen), S 21 6 - 21 mg/dL 07/23/2023 3:19 PM CDT DTL Creatinine 0.94 0.59 - 1.04 mg/dL 07/23/2023 3:19 PM CDT DTL Estimated GFR (eGFR) 63 >=60 mL/min/BS A 07/23/2023 3:19 PM CDT DTL Comment: Estimated GFR calculated using the 2020 CKD_EPI creatinine equation. Calcium, Total, S 9.8 8.8 - 10.2 mg/dL 07/23/2023 3:19 PM CDT DTL Glucose, S 114 70 - 140 mg/dL 07/23/2023 3:19 PM CDT DTL Protein, Total, S 6.7 6.3 - 7.9 g/dL 07/23/2023 3:19 PM CDT DTL Albumin, S 4.6 3.5 - 5.0 g/dL 07/23/2023 3:19 PM CDT DTL Aspartate Aminotransferase (AST), S 22 8 - 43 U/L 07/23/2023 3:19 PM CDT DTL Alkaline Phosphatase, S 62 35 - 104 U/L 07/23/2023 3:19 PM CDT DTL Alanine Aminotransferase (ALT), S 28 7 - 45 U/L 07/23/2023 3:19 PM CDT DTL Bilirubin, Total, S 0.4 0.0 - 1.2 mg/dL 07/23/2023 3:19 PM CDT DTL Blood (Blood, Venous) 07/23/2023 1:03 PM CDT 07/23/2023 1:35 PM CDT Venkata Mayen M.D. LAB BLOOD ADD-ON [facility] [address] [place] [address], [facility] [address] [place] [address] from Last 3 Months Advance Directives For more information, please contact: [phone] Documents on File Type Date Recorded Patient Jtac Expl anation Advance Directives 08/26/2012 12:00 AM Lega cy document. See document viewer. * Full Code (Latest Code Status on File) Date Activated Date Inactivated Comments 11/22/2021 4:26 PM 11/23/2021 4:07 PM Question Answer Comments Full Code: Discussed * Full Code Date Activated Date Inactivated Comments 11/21/2021 3:14 PM 11/22/2021 4:26 PM Question Answer Comments Full Code: Discussed * Full Code Date Activated Date Inactivated Comments 11/14/2020 10:55 AM 11/15/2020 12:46 PM Question Answer Comments Full Code: Discussed Care Teams Director Personal Relationship Specialty Start Date End Date Elsewhere, Pcp PCP - General Internal Medicine 12/12/21
--- OUTSIDE RECORDS SUMMARY | 2023-08-31 10:34 | XMS_ITS ---
Author Organization [facility] Address [address] [place] [address] Care Team Providers Care Emergency Specialist Name Role Phone Unavailable Unavailable Unavailable Surgery Details Not on file Complications Check Surgery Details section. Procedure Estimated Blood Loss Check Surgery Details section. Procedure Findings Check Surgery Details section. Procedure Specimens Taken Check Surgery Details section.
--- OUTSIDE RECORDS SUMMARY | 2023-08-31 10:34 | XMS_ITS | Encounter Summary ---
Author Organization [facility] Address [address] [place] [address] Care Team Providers Care Loan Specialist Name Role Phone Elsewhere, Pcp Primary Care Provider Unavailabl e Reason for Referral * Outpatient (Routine) - Authorized Specialty Diagnoses / Procedures Referred By Contac t Referred To Contact Cardiovascular Disease Venkata Mayen M.D. [address] [place] [address] [facility] Referral ID Status Reason Start Date Expiration Date V isits Requested Visits Authorized [id number] Authorized 08/01/2023 01/30/2025 1 1 * Outpatient (Routine) - Authorized Specialty Diagnoses / Procedures Referred By Contac t Referred To Contact Diagnoses 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 Regurgitation Mitral Procedures Cardiopulmonary (VO2) Exercise Test Venkata Mayen M.D. [address] [place] [address] [facility] Referral ID Status Reason Start Date Expiration Date V isits Requested Visits Authorized [id number] Authorized 08/01/2023 07/31/2024 1 1 Encounter Details Date Type Department Care Team (Late st Contact Info) Description 08/01/2023 Orders Only Department of Cardiovascular Medicine in [place], [place] [address] [place] [address] Venkata Mayen M.D. [address] [place] [address] 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 (Primary Dx); Regurgitation Mitral Social History Tobacco Use Types Packs/Day Years Used Date Smoking Tobacco: Former Cigarettes 0 08/27/1965 - 04/01/1979 Passive Smoke Exposure: Past Smokeless Tobacco: Never Alcohol Use Standard Drinks/Week Comments Yes 10 (1 standard drink = 0.6 oz pu re alcohol) [facility] Utilities Answer Date Recorded In the past 12 months has e [employer], gas, oil, or water [employer] threatened to shut off services in your [...] declined 11/12/2021 How often do you attend chur ch or jewish services? More than 4 times per year [...] when you are drinking? 1 or 2 Q3: How often do you have si x or more drinks on one occasion? Less than monthly 11/12/2021 Overall Financial Resource Strain (CARDIA) Answe r Date Recorded How hard is it for you to pa y for the very basics like food, housing, medical care, and heating? Not hard at all 11/12/2021 [facility] - Occupational Stress [...] money to buy more. Never true 07/17/19 24 Within the past 12 months, t he [...] your living situation today? I have a [place] place to live 07/17/2023 Education Answer Date Recorded What is the highest level of school you have completed or the highest degree you have received? 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 [address] [place] [phone] 09/24/2023 11:00 AM CDT Office Visit Department of Cardiovascular Medicine in [place], [place] [address] [place] [address] Venkata Mayen M.D. [address] [place] [phone] Scheduled Orders Name Type Priority Associated Diagnoses Order Schedule Cardiopulmonary (VO2) Exercise Test Cardiac Services Routine 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 Regurgitation Mitral Expected: 09/03/2023, Expires: 10/31/2024 Scheduled Referrals Name Type Priority Associated Diagnoses Order Schedule Cardiovascular Disease office visit (clinic) Outpatient Referral Routine Expect ed: 09/03/2023, Expires: 10/31/2024 documented as of this encounter Visit Diagnoses Diagnosis 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- Primary Regurgitation Mitral documented in this encounter Additional Health Concerns Assessment Noted Time PHQ-9 Depression Total Score: 6 08/21/19 13 4:08 PM CDT documented as of this encounter Care Teams Loan Specialist Relationship Specialty Start Date End Date Elsewhere, Pcp PCP - General Internal Medicine 12/12/21 documented as of this encounter
--- OUTSIDE RECORDS SUMMARY | 2023-08-31 10:34 | XMS_ITS | Clinical Summary ---
Author Organization [facility] [place], [place] [address] Care Team Providers Care Manager City Name Role Phone Lorin Parson MD Primary Care Provider + Allergies Active Allergy Reactions Criticality Noted Date Comments Sulfa (Sulfonamide Antibiotics) 09/22 Sulfabenzamide 10/10/2009 Medications Medication Sig Dispensed Refills Start Date End Date Status rosuvastatin (CRESTOR) 40 mg tablet Take 40 mg by mouth at bedtime. Active cholecalciferol (VITAMIN D-3) 2,000 unit capsule Take 2,000 Units by mouth once daily. Active nitroglycerin (NITROSTAT) 0.[address] 0.4 mg under the tongue every [address] one tablet sublingual as directed by prescriber Active albuterol (PROVENTIL; VENTOLIN) 90 mcg/actuation inhaler Inhale 2 Puffs by mouth 4 times daily. Inhale 2 puffs by mouth every 4-6 hours as neded Active albuterol HFA (PRO-AIR; VENTOLIN; PROVENTIL) 90 mcg/actuation inhaler Inhale 2 Puffs by mouth every 4 hours if needed. Active ezetimibe (ZETIA) 10 mg tablet 10/04/2020 Active calcium carbonate (CALTRATE) 600 mg calcium (1,500 mg) tablet Daily Active sertraline (ZOLOFT) 100 mg tablet 10/11/2020 Active verapamil SR (CALAN SR) 180 mg Sustained-Release tablet 10/04/2020 Active clopidogreL (Plavix) 75 mg tablet Take 75 mg by mouth once daily. Active aspirin (Aspir-81) 81 mg enteric coated tablet Take 1 Tablet (81 mg) by mouth once daily with a meal. 0 12/20/2020 Active potassium chloride in 0.9%NaCl 10 mEq/100 mL pgbk Daily 11/04/2021 Active ramipriL (ALTACE) 10 mg capsule 10 mg. 11/01/2021 Active verapamil SR (CALAN SR) 240 mg extended release tablet 09/20/2021 Active furosemide (LASIX) 20 mg tablet Take 20 mg by mouth. 11/23/2021 Ac tive CPAPIndications:ZACHARY (obstructive sleep apnea) CPAP machine for home use at pressure 15 cmw, nasal mask x1/3month with nasal cushion x2/mo 1 Each 10 01/01/2022 Active Active Problems Problem Noted Date Diagnosed Date ZACHARY AHI-18.7 10/23/2020 Personal history of malignant neoplasm of breast 09/02/2018 Obesity with body mass index 30 or greater 09/02 Hypertensive heart disease without heart failure 06/08/2012 Hyperlipidemia 06/08/2012 Social History Tobacco Use Types Packs/Day Years Used Date Smoking Tobacco: Never Smokeless Tobacco: Never Tobacco Cessation:Counseling Given: Yes Alcohol Use Standard Drinks/Week Comments Not Asked 0 (1 standard drink = 0.6 oz pur e alcohol) PHQ-2 Answer Date Recorded PHQ-2 TOTAL SCORE 3 12/04/2021 Social Connections Answer Date Recorded Frequency of Communication with Friends and Fami ly 0 11/14/2022 Financial Resource Strain Answer Date R ecorded Difficulty of Paying Living Expenses 3 11/14/2022 Difficulty of Paying Living Expenses Not on file 11/14/2022 Food Insecurity Answer Date Recorded Worried About Running Out of Food in the Last Ye ar 1 11/14/2022 Transportation Needs Answer Date Record ed Lack of Transportation (Medical) 1 11/14/2022 Housing Stability Answer Date Recorded Unable to Pay for Housing in the Last Year 1 11/14/2022 Sex and Gender Information Value Date Recorded Sex Assigned at Not on file Gender Identity Not on file Sexual Orientation Not on file Obstetrics History Last Filed Vital Signs Vital Sign Reading Time Taken Comments Blood Pressure 136/74 11/14/2022 3:02 PM CDT Pulse 69 11/14/2022 12:35 PM CDT Temperature 36.3 ??C (97.3 ??F) 11/14/2022 12:35 PM C DT Respiratory Rate 14 11/14/2022 12:35 PM CDT Oxygen Saturation 96% 11/14/2022 12:35 PM CDT Inhaled Oxygen Concentration - - Weight 99.9 kg (220 lb 3.2 oz) 11/14/2022 12:35 PM CDT Height 160 cm (5' 3) 12/04/2021 3:00 PM CDT Body Mass Index 39.01 12/04/2021 3:00 PM CDT Plan of Treatment Health Maintenance Due Date Last Done Comments Tdap 01/05/1959 Hepatitis C screening for ag e 18-79 01/05/1966 Tetanus booster 1968 Colonoscopy through age 75 01/05/1993 Lipids for age 45-75 01/05/1993 Zoster (shingles) series for age 50+ (1 of 2) 01/05/1998 DEXA/DXA scan for age 65+ 01/05/2013 Medicare Wellness for age 65+ 01/05/2013 Pneumococcal series for age 65+ (1 of 1 - PCV) 01/05/2013 BMI (ht and wt on same day) for age 18+ 10/23/2021 10/23/2020 COVID-19 vaccine series ( season) 2022 01/11/2022, 08/22/2021, 12/20/2020 Depression screening for age 12+ 12/07/2022 12/07/2021, 12/05/2021, 12/04/2021, Additional history exists Influenza for age 65+ 11/23/2023 Advance Directives Documents on File Type Date Recorded 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
--- OUTSIDE RECORDS SUMMARY | 2023-08-31 10:34 | XMS_ITS | Referral Summary ---
Author Organization [facility] Address [address] [place] [address] Care Team Providers Care Physician Office Secretary Name Role Phone Elsewhere, Pcp Primary Care Provider Unavailabl e Source Comments Patient records contain information from all sites at [facility]. For routine questions regarding patient records, call [phone] during business hours, M-F 8:00 AM - 5:00 PM Central Time. Record requests for emergency care only can be directed to [phone] at any time.[facility] Encounters Date Type Department Care Team Description 08/01/2023 Orders Only Department of Cardiovascular Medicine in [place], [place] [address] [place] [address] Venkata Mayen M.D. 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 (Primary Dx); Regurgitation Mitral 07/23/2023 2:52 PM CDT - 07/23/2023 11:59 PM CDT Hospital Encounter Department of Cardiovascular Diseases in [place], [place] [address] [place] [address] Venkata Mayen M.D. Dyspnea On Exertion; Ischemic Heart Chronic Disease; Hyperlipidemia On Treatment; Regurgitation Mitral; Chronic Diastolic (Congestive) Heart Failure (HCC); 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 Discharge Disposition: Home or Self Care 07/23/2023 12:43 PM CDT - 07/23/2023 2:51 PM CDT Hospital Encounter Department of Laboratory Medicine and Pathology, [facility], in [place], [place] [address] [place] [phone] Venkata Mayen M.D. Dyspnea On Exertion; Ischemic Heart Chronic Disease; Hyperlipidemia On Treatment; Regurgitation Mitral; Chronic Diastolic (Congestive) Heart Failure (HCC); 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 Discharge Disposition: Home or Self Care 07/23/2023 2:00 PM CDT Office Visit Department of Cardiovascular Medicine in [place], [place] [address] [place] [phone] Venkata Mayen M.D. Chronic Diastolic (Congestive) Heart Failure (HCC) (Primary Dx); Elevated Lipoprotein A; Coronary Artery Disease Without Angina Pectoris; Regurgitation Mitral; 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 07/22/2023 10:45 AM CDT Clinical Communication Virtual Review in [place], [place] 200 [place] [address] Pre-visit Intake 06/30/2023 Clinical Communication Department of Cardiovascular Medicine in [address] [phone] Venkata Mayen M.D. Echo EST 07/2206/30/2023 Clinical Communication Department of Cardiovascular Medicine in [address] [phone] Furniture Packer Roderick M.D. Appt Request from Last 3 Months Allergies Active Allergy Reactions Criticality Noted Date [...] tablet 3 12/28/2020 Active miscellaneous medical supply [facility] CPAP machine for home use at pressure [...] Overview: Added automatically from request for surgery [id number] Chronic Diastolic (Congestive) Heart Failure Overview: Added automatically from request for surgery [id number] Pain Chest 11/19/2021 Overview: Added automatically from request for surgery [id number] Atherosclerotic Heart Diseas e Of [place] Coronary Artery Without Angina Pectoris 11/14/2020 Coronary Artery Disease Without Angina Pectoris 09/02/2018 Apnea Sleep Obstructive 09/02/2018 Obesity Body Mass Index 30-39.9 Adult 09/02/2018 Impaired Fasting Glucose 09/02/2018 Cancer Breast Personal History 09/02/2018 Dyspnea On Exertion 08/10/2014 Hypertensive Heart Disease Without Heart Failure 06/08/2012 Ischemic Heart Chronic Disease 06/08/2012 Hyperlipidemia On Treatment 06/08/2012 Immunizations Name Administration Dates Next Due SARS-COV-2 (COVID-19) - PFIZ ER (Discontinued)(12 years or older) 05/31/2020,05/11/2020 Social History Tobacco Use Types Packs/Day Years Used Date Smoking Tobacco: Former Cigarettes 0 08/27/1965 - 04/01/1979 Passive Smoke Exposure: Past Smokeless Tobacco: Never Alcohol Use Standard Drinks/Week Comments Yes 10 (1 standard drink = 0.6 oz pu re alcohol) [facility] [employer] Technologyities Answer Date Recorded In the past 12 months has [facility] [employer], gas, oil, or water [employer] threatened to shut off services in your [...] declined 11/12/2021 How often do you attend [facility] or methodist services? More than 4 times per year 11/12/2021 Do you belong to any clubs o r organizations such as buddhist groups, unions, fraternal or athletic groups, or [...] and heating? Not hard at all 11/12/2021 [facility] - Occupational Stress Questionnaire Answer [...] your living situation today? I have a [facility] place to live 07/17/2023 Education Answer Date Recorded What is the highest level of school you have completed or the highest degree you have received? 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 [address] [place] [phone] 09/24/2023 11:00 AM CDT Office Visit Department of Cardiovascular Medicine in [place], [place] [address] [place] [phone] Venkata Mayen M.D. [address] [place] [address] Medical Devices Implanted Type Area Industrial Property Appraiser Device Identifier Shelf Expiration Date Model / Serial / Lot Cardiac Stent Cardiac Stent Heart Description:5 cardiac stents Stnt Synergy Xd De 3.50x38 - [id number] Implanted:Qty : 1 on 11/14/2020 by Dontae Rubio M.D. at [facility] Cardiac Stent N/A: Coronary [employer] 06/08/2022 [id number] / / [id number] Description:Mid RCA Stnt Synergy Xd De 4.00x24 - [id number] Implanted:Qty : 1 on 11/14/2020 by Dontae Rubio M.D. at [facility] Cardiac Stent N/A: Coronary [employer] 09/19/2021 [id number] / / [id number] Description:Prox RCA Stnt Ronyx Kenji Rx 4x18 - [id number] Implanted:Qty : 1 on 11/22/2021 by Kishan Patricia M.D., Ph.D. at [facility] Cardiac Stent N/A: Coronary [employer] 06/27/2024 [id number] / / [id number] Description:Ost RCA Hardware E.G. Pins/Screws/R ods Hardware [...] MUSE QTC Interval 447 ms MUSE P [place] 47 degrees MUSE R [place] 38 degrees MUSE T Wave [place] 18 degrees MUSE 07/23/2023 1:16 PM CDT [...] M.D. LAB BLOOD ADD-ON Performing Organization Address [facility] Co de Phone Number [facility] [address] [place] [address], [facility] [address] [address] * NT-Pro B-Type Natriuretic Peptide (BNP) (07/23/2023 [...] M.D. LAB BLOOD ADD-ON Performing Organization Address [facility] Co de Phone Number [facility] [address] [place] [address], [facility] [address] [place] [address] * CBC without Differential (07/23/2023 1:03 PM [...] CDT Venkata Mayen M.D. LAB BLOOD ADD-ON [facility] [address] [place] [address], [facility] [address] [address] * (ABNORMAL) Hemoglobin A1c (07/23/2023 1:03 PM CDT) Pathologist [facility] Hemoglobin A1c, B 5.8(H) 4.0 - 5.6 % 07/23/2023 1:47 PM CDT DTL Comment: Hemoglobin A1c values of 5.7-6.4 percent indicate an increased risk for developing diabetes mellitus. In diabetic patients, HbA1c goals should be discussed with healthcare provider. Blood (Blood, Venous) 07/23/2023 1:03 PM CDT 07/23/2023 1:28 PM CDT Venkata Mayen M.D. LAB BLOOD ADD-ON [facility] [address] [place] [address], [place] DTL [facility] [address] [place] [address] * Comprehensive Metabolic Panel (07/23/2023 1:03 PM CDT) Pathologist [facility] Potassium, S 4.7 3.6 - 5.2 mmol/L [...] CDT Venkata Mayen M.D. LAB BLOOD ADD-ON [facility] [address] [place] [address], [place] D[place] 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 See document viewer. * Full Code [...] Answer Comments Full Code: Discussed Care Teams Physician Office Secretary Relationship Specialty Start Date End Date Elsewhere, Pcp PCP - General Internal Medicine 12/12/21
--- OUTSIDE RECORDS SUMMARY | 2023-08-31 10:34 | XMS_ITS | Encounter Summary ---
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 [address] [place] [address] [facility] Referral ID Status Reason Start Date Expiration Date Visits Re quested Visits Authorized [id number] Closed 12/12/2022 12/12/2023 1 1 Encounter Details Date Type Department Care Team (Latest Contact Info) Description 07/23/2023 2:52 PM CDT - 07/23/2023 11:59 PM CDT Hospital Encounter Department of Cardiovascular Diseases in [place], [place] [address] [place] [address] Venkata Mayen M.D. 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 More than 4 times per year 11/12/2021 Do you belong to any clubs o r organizations such as episcopal groups, unions, fraternal [...] and heating? Not hard at all 11/12/2021 [facility] of Occupat ional Health - Occupational Stress [...] your living situation today? I have a [facility] place to live 07/17/2023 Education Answer Date Recorded What is the highest level of school you have completed or the highest degree you have received? 12th grade 10/02/2020 Sex and Gender Information Value Date Recorded Sex Assigned at Female 05/03/2021 9:58 AM NICKEL OPERATOR Gender Identity Female 10/02/2020 7:16 PM CDT Sexual Orientation Straight 10/08/2020 6: 58 AM CDT documented as of this encounter Medications at Time of Discharge Medication Sig Dispensed Refills Start Date End Date albuterol 90 mcg/actuation inhaler Inhale 2 puffs every 4 (four) hours as needed. aspirin 81 mg chewable tablet Chew 1 tablet (81 mg total) daily. 90 tablet 3 12/28/2020 calcium carbonate (CALCIUM 500 ORAL) Take 2 tablets by mouth daily. cholecalciferol (VITAMIN D3) 2,000 Unit capsule Take 2,000 Units by mouth daily. cyanocobalamin, vitamin B-12, (VITAMIN B-12 ORAL) Take 1 tablet by mouth daily. empagliflozin (JARDIANCE) 10 mg tablet Take 1 tablet (10 mg total) by mouth every morning before breakfast. 90 tablet 3 11/27/2022 ezetimibe (ZETIA) 10 mg tablet Take 10 mg by mouth at bedtime. 07/31/2018 fluticasone propionate (FLONASE) 50 mcg/actuation nasal spray 1 spray in each nostril Nasally Twice a day for 30 days 04/22/2023 furosemide (LASIX) 40 mg tablet Take 1 tablet (40 mg total) by mouth daily. 90 tablet 3 11/27/2022 miscellaneous medical supply [facility] CPAP machine for home use at pressure 5-16 cmw, nasal mask x1/3month with nasal pillows x 2/mo 12/20/2020 nitroglycerin (NITROSTAT) 0.[address] 0.4 mg under the tongue as needed for chest pain. potassium chloride (KLORCON/K-TAB) 10 mEq ER tablet Take 1 tablet (10 mEq total) by mouth daily with breakfast. Do not crush or chew. 90 tablet 3 11/23/2021 ramipriL (ALTACE) 5 mg capsule Take 2 capsules (10 mg total) by mouth daily. 180 capsule 3 04/12/2021 rosuvastatin (CRESTOR) 40 mg tablet Take 1 tablet by mouth at bedtime. 06/08/2012 sertraline (ZOLOFT) 100 mg tablet Take 1 tablet by mouth at bedtime. 06/08/2012 spironolactone (ALDACTONE) 25 mg tablet 1 tablet Orally 04/14/2023 verapamiL (CALAN-SR) 240 mg ER tablet Take 1 tablet (240 mg total) by mouth at bedtime. 90 tablet 3 05/09/2021 documented as of this encounter Plan of Treatment Upcoming Encounters Date Type Department Care Team (Late st Contact Info) Description 09/24/2023 9:15 AM CDT Appointment Department of Cardiovascular Diseases in [place], [place] [address] [place] [phone] Venkata Mayen M.D. [address] [place] [phone] 09/24/2023 11:00 AM CDT Office Visit Department of Cardiovascular Medicine in [place], [place] [address] [place] [phone] Venkata Mayen M.D. 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
--- OUTSIDE RECORDS SUMMARY | 2023-08-31 10:35 | XMS_ITS | Encounter Summary ---
Author Organization [facility] Address [address] [place] [address] Care Team Providers Care Custom Garment Designer Name Role Phone Elsewhere, Pcp Primary Care Provider Unavailabl e Reason for Visit * Reason Onset Date Comments Appt Request 06/30/2023 Encounter Details Date Type Department Care Team (Latest Contact Info) Description 06/30/2023 Clinical Communication Department of Cardiovascular Medicine in [place], [place] [address] [place] [address] Crane MechanicRoderick M.D. Appt Request Social History Tobacco Use Types Packs/Day Years Used Date Smoking Tobacco: Former Cigarettes 0 08/27/1965 - 04/01/1979 Passive Smoke Exposure: Past Smokeless Tobacco: Never Alcohol Use Standard Drinks/Week Comments Yes 10 (1 standard drink = 0.6 oz pu re alcohol) Humiliation, Afraid, Rape, and Kick questionnair e [...] 11/12/2021 How often do you attend chur or zoroastrian services? More than 4 times per year 11/12/2021 Do you belong to any clubs o r organizations such as presybeterian groups, unions, fraternal or athletic groups, or [...] and heating? Not hard at all 11/12/2021 [facility] of Occupat ional Health - Occupational Stress [...] to strenuous exercise (like a brisk walk)? 4 days 11/12/2021 On average, how many minutes do you engage in exercise at this level? 40 min 11/12/2021 Hunger Vital Sign Answer Date Recorded Within the past 12 months, y ou worried that your food would run out before you got the money to buy more. Never true 11/13/19 Within the past 12 months, t he food you bought just didn't last and you didn't have money to get more. Never true 11/12/2021 PRAPARE - Transportation Answer Date Re corded In the past 12 months, has l ack of transportation kept you from medical appointments or from getting medications? No 10/23 In the past 12 months, has l ack of transportation kept you from meetings, work, or from getting things needed for daily living? No 11/12/2021 Housing Stability Vital Sign Answer Brian e Recorded In the last 12 months, was t here a time when you were not able to pay the mortgage or rent on time? No 11/12/2021 In the last 12 months, how many places have you lived? 1 11/12/2021 In the last 12 months, was t here a time when you did not have a steady place to sleep or slept in a penitentiary (including now)? No 11/12/2021 Nutrition Answer Date Recorded Nutrition: EVOO Fat Source Yes 11/12 On average, how many serving s of fruits and vegetables do you eat per day (serving size is equal to 1 cup or approximately the size of a tennis ball)? 2-3 11/12/2021 Dental Answer Date Recorded Dental: Regular Dentist No 11/13/19 Employment Answer Date Recorded Employment status Retired 11/12/2021 Education Answer Date Recorded What is the highest level of school you have completed or the highest degree you have received? 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 [address] [place] [phone] 09/24/2023 11:00 AM CDT Office Visit Department of Cardiovascular Medicine in [place], [place] [address] [place] [address] Venkata Mayen M.D. [address] [place] [address] documented as of this encounter Visit Diagnoses Not on filedocumented in this encounter Additional Health Concerns Assessment Noted Time PHQ-9 Depression Total Score: 6 08/21/19 13 4:08 PM CDT documented as of this encounter Care Teams Custom Garment Designer Relationship Specialty Start Date End Date Elsewhere, Pcp PCP - General Internal Medicine 12/12/21 documented as of this encounter
--- OUTSIDE RECORDS SUMMARY | 2023-08-31 10:35 | XMS_ITS | Encounter Summary ---
Author Organization [facility] Address [address] [place] [address] Care Team Providers Care Tennis Professional Name Role Phone Elsewhere, Pcp Primary Care Provider Unavailabl e Reason for Visit * Reason Onset Date Comments Echo EST 07/2206/30/2023 Encounter Details Date Type Department Care Team (Latest Contact Info) Description 06/30/2023 Clinical Communication Department of Cardiovascular Medicine in [place], [place] [address] [place] [phone] Venkata Mayen M.D. [address] [place] [phone] Echo EST 07/22 Social History Tobacco Use Types Packs/Day Years Used Date Smoking Tobacco: Former Cigarettes 0 08/27/1965 - 04/01/1979 Passive Smoke Exposure: Past Smokeless Tobacco: Never Alcohol Use Standard Drinks/Week Comments Yes 10 (1 standard drink = 0.6 oz pu re alcohol) [facility] Utilities Answer Date Recorded In the past 12 months has e [employer], gas, oil, or water [employer] threatened to shut off services in your [...] How often do you attend chur or yazdanism services? More than 4 times per year 11/12/2021 Do you belong to any clubs o r organizations such as religion groups, unions, fraternal [...] and heating? Not hard at all 11/12/2021 [facility] [place] of Occupat ional Health - Occupational Stress [...] your living situation today? I have a [facility] place to live 07/17/2023 Education Answer Date Recorded What is the highest level of school you have completed or the highest degree you have received? 12th grade 10/02/2020 Sex and Gender Information Value Date Recorded Sex Assigned at Female 05/03/2021 9:58 AM HEAD MILLER Gender Identity Female 10/02/2020 7:16 PM CDT Sexual Orientation Straight 10/08/2020 6: 58 AM CDT documented as of this encounter Miscellaneous Notes * Telephone Encounter - Gretchen Blankenship - 06/30/2023 2:48 PM CDT ECHO MOVE UP REQUEST If there is any additional information please add it to the bottom. (I.E. provider request, nursingrequest, etc.) Please use for all requests starting July 22 and after Appt Type: EST Friday: 07/22 8:50 am or 10:10 am (7:30 Echoes are not available on Wednesdays) When does the provider see (date and time)?: 07/22 at 1:00 Are there times that do not work for pt?: No Is testing flexible to accommodate the echo?: Yes Pool for replies: P RST CVD CUST SX FLR SCHEDULING documented in this encounter Plan of Treatment Upcoming Encounters Date Type Department Care Team (Late st Contact Info) Description 09/24/2023 9:15 AM CDT Appointment Department of Cardiovascular Diseases in [place], [place] [address] [place] [phone] Venkata Mayen M.D. [address] [place] [phone] 09/24/2023 11:00 AM CDT Office Visit Department of Cardiovascular Medicine in [place], [place] [address] [place] [phone] Venkata Mayen M.D. [address] [place] [phone] documented as of this encounter Visit Diagnoses Not on filedocumented in this encounter Additional Health Concerns Assessment Noted Time PHQ-9 Depression Total Score: 6 08/21/19 13 4:08 PM CDT documented as of this encounter Care Teams Tennis Professional Relationship Specialty Start Date End Date Elsewhere, Pcp PCP - General Internal Medicine 12/12/21 documented as of this encounter
--- OUTSIDE RECORDS SUMMARY | 2023-08-31 10:35 | XMS_ITS | Encounter Summary ---
Author Organization [facility] [place] Address [address] [place] [address] Care Team Providers Care Scuba Instructor Name Role Phone Elsewhere, Pcp Primary Care Provider Unavailabl e Reason for Visit * Reason Onset Date Comments Pre-visit Intake 07/22/2023 Encounter Details Date Type Department Care Team (Latest Contact Info) Description 07/22/2023 10:45 AM CDT Clinical Communication Virtual Review in [place], [place] [address] [place] [address] Pre-visit Intake Social History Tobacco Use Types Packs/Day Years Used Date Smoking Tobacco: Former Cigarettes 0 08/27/1965 - 04/01/1979 Passive Smoke Exposure: Past Smokeless Tobacco: Never Tobacco Cessation:Counseling Given: Not Answered Alcohol Use Standard Drinks/Week Comments Yes 10 (1 standard drink = 0.6 oz pu re alcohol) [facility] Utilities Answer Date Recorded In the past 12 months has [facility] electric, gas, oil, or water company threatened to shut off services in your [...] declined 11/12/2021 How often do you attend [facility] or pentecostalism services? More than 4 times per year 11/12/2021 Do you belong to any clubs o r organizations such as catholic groups, unions, fraternal or athletic groups, or [...] and heating? Not hard at all 11/12/2021 [facility] of Occupat ional Health - Occupational Stress [...] your living situation today? I have a [facility] place to live 07/17/2023 Education Answer Date Recorded What is the highest level of school you have completed or the highest degree you have received? 12th grade 10/02/2020 Sex and Gender Information Value Date Recorded Sex Assigned at Female 05/03/2021 9:58 AM NITROGEN OPERATOR Gender Identity Female 10/02/2020 7:16 PM CDT Sexual Orientation Straight 10/08/2020 6: 58 AM CDT documented as of this encounter Plan of Treatment Upcoming Encounters Date Type Department Care Team (Late st Contact Info) Description 09/24/2023 9:15 AM CDT Appointment Department of Cardiovascular Diseases in [place], [place] [address] [place] [address] Venkata Mayen M.D. [address] [place] [address] 09/24/2023 11:00 AM CDT Office Visit Department of Cardiovascular Medicine in [place], [place] [address] [place] [address] Venkata Mayen M.D. [address] [place] [address] documented as of this encounter Visit Diagnoses Not on filedocumented in this encounter Additional Health Concerns Assessment Noted Time PHQ-9 Depression Total Score: 6 08/21/19 13 4:08 PM CDT documented as of this encounter Care Teams Scuba Instructor Relationship Specialty Start Date End Date Elsewhere, Pcp PCP - General Internal Medicine 12/12/21 documented as of this encounter
--- OUTSIDE RECORDS SUMMARY | 2023-08-31 10:35 | XMS_ITS | Encounter Summary ---
Author Organization [facility] Address [address] [place] [address] Care Team Providers Care Staff Counsel Name Role Phone Elsewhere, Pcp Primary Care Provider Unavailabl e Encounter Details Date Type Department Care Team (Latest Contact Info) Description 07/23/2023 12:43 PM CDT - 07/23/2023 2:51 PM CDT Hospital Encounter Department of Laboratory Medicine and Pathology, [facility], in [place], [place] [address] [place] [address] Venkata Mayen M.D. [address] [place] [address] Dyspnea On Exertion; Ischemic Heart Chronic Disease; [...] drink = 0.6 oz pu re alcohol) [facility] Utilities Answer Date Recorded In the past 12 months has [facility] electric, gas, oil, or water company [...] declined 11/12/2021 How often do you attend [facility] or holiness services? More than 4 times per year [...] and heating? Not hard at all 11/12/2021 [facility] [place] of Occupat ional Health - Occupational Stress [...] your living situation today? I have a [facility] place to live 07/17/2023 Education Answer Date Recorded What is the highest level of school you have completed or the highest degree you have received? 12th grade 10/02/2020 Sex and Gender Information Value Date Recorded Sex Assigned at Female 05/03/2021 9:[address] INSTALLER Gender Identity Female 10/02/2020 7:16 PM CDT [...] 90 tablet 3 11/27/2022 miscellaneous medical supply [facility] CPAP machine for home use at pressure [...] CDT Appointment Department of Cardiovascular Diseases in [place], [place] [address] [place] [address] Venkata Mayen M.D. [address] [place] [address] 09/24/2023 11:00 AM CDT Office Visit Department of Cardiovascular Medicine in [place], [place] [address] [place] [address] Venkata Mayen M.D. [address] [place] [phone] documented as of this encounter Procedures Procedure Name Priority Date/Time Associated Diagnosis Comments LIPID PANEL, S Routine 07/23/2023 1:03 PM [...] Acquired documented in this encounter Results * CBC without Differential (07/23/2023 1:03 PM [...] CDT Venkata Mayen M.D. LAB BLOOD ADD-ON [facility] [address] [place] [address], [facility] [place] [address] [place] [address] * Comprehensive Metabolic Panel (07/23/2023 1:03 PM CDT) Pathologist [facility] Potassium, S 4.7 3.6 - 5.2 mmol/L [...] CDT Venkata Mayen M.D. LAB BLOOD ADD-ON [facility] [address] [place] [address], [facility] [place] [address] [place] [address] * (ABNORMAL) Lipid Panel (07/23/2023 1:03 PM CDT) Pathologist [facility] Triglycerides 98 mg/dL 07/23/2023 3:19 PM CDT [...] CDT Venkata Mayen M.D. LAB BLOOD ADD-ON [facility] [address] [place], [place] [phone] [place] [address] [facility] [place] [address] [place] [address] * (ABNORMAL) Hemoglobin A1c (07/23/2023 1:03 PM [...] M.D. LAB BLOOD ADD-ON Performing Organization Address City/[facility]/ZIP Co de Phone Number [facility] [address] [place] [address], [facility] [address] [place] [address] * NT-Pro B-Type Natriuretic Peptide (BNP) (07/23/2023 [...] M.D. 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
--- OUTSIDE RECORDS SUMMARY | 2023-08-31 10:35 | XMS_ITS | Encounter Summary ---
Author Organization [facility] Address [address] [place] [address] Care Team Providers Care Wholesale Loan Processor Name Role Phone Elsewhere, Pcp Primary Care Provider Unavailabl e Reason for Visit * Outpatient (Routine) - Closed Specialty Diagnoses / Procedures Referred By Alicia hernandez Referred To Contact Cardiovascular Disease Venkata Mayen M.D. [address] [place] [address] [facility] Referral ID Status Reason Start Date Expiration Date Visits Re quested Visits Authorized [id number] Closed 12/12/2022 12/11/2025 1 1 Encounter Details Date Type Department Care Team (Latest Contact Info) Description 07/23/2023 2:00 PM CDT Office Visit Department of Cardiovascular Medicine in [place], [place] [address] [place] [phone] Venkata Mayen M.D. [address] [place] [phone] Chronic Diastolic (Congestive) Heart Failure (HCC) (Primary Dx); Elevated Lipoprotein A; Coronary Artery Disease Without Angina Pectoris; Regurgitation Mitral; 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 Social History Tobacco Use Types Packs/Day Years Used Date Smoking Tobacco: Former Cigarettes 0 08/27/1965 - 04/01/1979 Passive Smoke Exposure: Past Smokeless Tobacco: Never Alcohol Use Standard Drinks/Week Comments Yes 10 (1 standard drink = 0.6 oz pu re alcohol) [facility] Utilities Answer Date Recorded In the past 12 months has e electric, gas, oil, or water company threatened [...] How often do you attend chur or hindu services? More than 4 times per year 11/12/2021 Do you belong to any clubs o r organizations such as congregational groups, unions, fraternal or athletic groups, or [...] and heating? Not hard at all 11/12/2021 [facility] [place] of Occupat ional Health - Occupational Stress [...] your living situation today? I have a [facility] place to live 07/17/2023 Education Answer Date Recorded What is the highest level of school you have completed or the highest degree you have received? 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 Pulse 90 07/23/2023 1:51 PM CDT Temperature - - Respiratory Rate - - Oxygen Saturation - - Inhaled Oxygen Concentration - - Weight 99.2 kg (218 lb 11.1 oz) 07/23/2023 2:38 PM CDT Height - - Body Mass Index 39.49 11/27/2022 12:46 PM CDT documented in this encounter Progress Notes * Venkata Mayen M.D. - 07/23/2023 2:00 PM CDT SUBJECTIVE HISTORY OF PRESENT ILLNESS Ivonne Collins is a 73 y.o. female who returns to [facility] with our lastvisit occurring on 27 November 2022. Recall that she was seen after hospital dismissal on 23 November 2021 due to unstable angina; coronary angiogram on 21 November 2021 demonstrated critical coronary stent restenosis involving the ostialright coronary artery and right heart catheterization was notable for borderline elevation in PAWP,normal pulmonary artery pressures, and mildly reduced cardiac output with resting transmitral gradient 4 mm Hg (see below for details) followed by right coronary artery revascularization on 22 November 2021 including laser atherectomy, intravascular lithotripsy, angioplasty, and a 4 x 18 mm drug-eluting stent. Prior diagnostic coronary angiogram with left and right heart catheterization had been completed on 21 November 2021 which identified the critical ostial right coronary artery stenosis in addition to borderline elevated PAWP, normal pulmonary artery pressures, low right atrial pressure, low normal LVEDP, mildly reduced cardiac output, and grade 3 mitral regurgitation with transmitral gra dient 4 mm Hg. She has not experienced recurrent dyspneic symptoms nor chest discomfort similar to the symptoms she noted prior to identification of the ostial right coronary artery stenosis. Recalls two transient episodes of sharp chest discomfort since our last visit both of which occurred at rest and were fleeting, lasting a second or two in duration. She denies new exertional dyspnea (however, her estimatedexercise capacity is likely less compared to last year due to multiple issues including deconditioning). No dyspnea at rest, orthopnea, or paroxysmal nocturnal dyspnea. Fluctuating lower extremity edema but overall no marked change in this regard. Her weight has increased <1 kg compared to measurements performed here last year. As noted previously, she believes her weight had decreased to a edwardo of 205 lb in March 2022 with a subsequent gradual increase but plateaued over the past severalmonths. No palpitations. Occasional lightheadedness which is noted most often after her morning medications. No syncope since our last visit. She completed cardiac rehabilitation at [facility] in 2021; however, she has unfortunately been ableto continue exercise due to a variety of different reasons (travel, non-cardiac and presumptive viral syndrome earlier this year as well as orthopedic-related knee symptoms). Cardiac medications include ramipril 10 mg daily, verapamil 240 mg daily, furosemide 40 mg once daily, empagliflozin 10 mg daily, spironolactone 25 mg daily, rosuvastatin 40 mg daily, ezetimibe 10 mgdaily, aspirin 81 mg daily, and nitroglycerin sublingual as needed. REVIEW OF SYSTEMS The following portions of the patient's history were reviewed: allergies, current medications, family history, medical history, social history, surgical history and problem list. OBJECTIVE BP 114/74 (BP Location: Left arm, Patient Position: Sitting, Cuff Size: Large) Comment: 6 minute BP. Pulse 90 Wt 99.2 kg BMI 39.49 kg/m?? PHYSICAL EXAMINATION General: Increased body habitus. Well groomed. No distress. Psychiatric: Normal mood and affect. Alert and oriented. Head: Normocephalic, atraumatic. Eyes: No xanthelasma or conjunctivitis. Neck: Jugular venous pressure estimated at 8 cm water. Carotid upstroke is preserved. No carotid bruit. No subclavian bruit. Heart: Apical impulse is not displaced nor sustained. No ventricular lift. Normal first and second heart sound. No opening snap or diastolic inflow rumble. No S3 or S4. Rhythm is regular. Grade 2 midholosystolic murmur of mitral regurgitation towards the apex. No diastolic murmur. No systolic click. No [...] abdominal bruits. Extremities: No clubbing or cyanosis. Bilateral lower extremity lymphedema; trivial pitting edema. Neurologic: No focal deficits appreciated on limited examination. Gait: No significant gait instability observed. Skin: No stasis dermatitis or ulceration identified in the visualized areas. DIAGNOSTICS I have reviewed the patient's current laboratory, imaging, and other diagnostic studies. Laboratorystudies with normal hemoglobin, white blood cell count and platelet count. Normal sodium at 141 andpotassium at 4.7 mmol/L. BUN 21 and creatinine 0.94 mg/dL. Glucose 114 mg/dL with hemoglobin A1c 5.8%. Normal TSH. N terminal proBNP 272 pg/mL. Total cholesterol 140, HDL 47, LDL 75, and triglycerides 98 mg/dL. Electrocardiogram with normal sinus rhythm and no marked ST segment or T-wave abnormalities. Normal OR interval, QRS duration and QTc. Prior cardiac-related testing with CT angiogram 20 November 2021 with severe mitral annular calcification, mild leaflet calcification, and minimal subvalvular calcification. Severe infrarenal abdominalaorta atherosclerotic calcification as well as severe stenosis in the left common iliac artery and m oderate stenosis in the right common iliac artery. Additional non-cardiac findings as outlined in the report; see report for details. Right heart catheterization with low right-sided filling pressures (RA 2 mm Hg), mean pulmonary artery pressure 19 mm Hg, with PAWP 15 mm Hg with cardiac index 2.4. T ransmitral gradient 4 mm Hg. After sublingual nitroglycerin, PAWP decreased to 6 mm Hg, mean PA 14 mm Hg with aortic pressure 89/51 mm Hg. LVEDP 7 mm Hg. Coronary angiogram(s) with critical restenosis of the ostial right coronary artery drug-eluting stent; suspected that the luminal portion of the ostial stent was occluded with flow into the coronary artery around the outside of the stent throughthe struts into the ostium. The right posterior descending artery received collaterals from the distal LAD and septal substation supervisor. No significant obstructive disease in the left coronary system. Coronary artery revascularization of the right coronary artery was completed on 22 November 2021 utilizing laser atherectomy, intravascular lithotripsy, angioplasty, and a 4 x 18 mm drug-eluting stent. Echocardiogram November 2022 demonstrated mildly enlarged left ventricular chamber size with normal wall motion and calculated left ventricular ejection fraction 66%. Normal right ventricular chamber size and systolic function with estimated right ventricular systolic pressure 49 mm Hg. The mitral annulus is severely calcified with leaflet and chordal calcification with a diastolic mean gradient 5 mm Hg at a heart rate of 81 beats per minute. There is moderate mitral valve regurgitation (potentially underestimated). Severe left atrial enlargement. Compared to the October 2021 study, the estimatedright ventricular systolic pressure is higher by 10 mm Hg. ASSESSMENT / PLAN #1 Multivessel coronary artery disease status post multivessel percutaneous coronary artery revascularization #1a Right coronary artery rotational atherectomy + stent revascularization (October 2020) #1b RCA laser atherectomy, intravascular lithotripsy, + stent revascularization for ostial stent restenosis (November 2021) Continue aggressive cardiovascular risk factor modification. She completed 12 months of dual anti-platelet therapy after our prior visit and transitioned to aspirin 81 mg daily. The majority of her progressive cardiopulmonary symptoms in 2021 as well as the acute decompensation were primarily due to obstructive right coronary artery disease with secondary contributors of mixed mitral valve disease and HFpEF lowering her tolerability of myocardial ischemia. On the basis of her symptom status, I do not suspect recurrent obstructive coronary artery disease or RCA restenosis at her current level of activity. 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 Plan to continue non-interventional management with pharmacotherapy aimed at heart rate, blood pressure, and volume control if mitral regurgitation is moderate. Pending echocardiogram results may opt to pursue repeat cardiopulmonary hemodynamic echocardiogram and/or transesophageal echocardiogram. If she were to develop progressive mitral stenosis or regurgitation or recurrent symptoms unrelated to obstructive coronary artery disease with adequate hemodynamic and volume management, then proceed with CV surgery + interventional cardiology consultations to discuss surgicalMVR or transcatheter MVR. #3 Resting and exercise-accentuated pulmonary hypertension secondary to left heart disease #4 Heart failure with preserved ejection fraction and systemic hypertension Does not appear volume overloaded based on clinical examination and relevant laboratory studies butwith acknowledging the minimal change in weight which is likely multifactorial. The furosemide dosehas been stable and she is maintained on both a SGLT-2i and spironolactone. #5 Hyperlipidemia with elevated lipoprotein (a) Continue high-intensity statin + ezetimibe; prior LDL 61 mg/dL with today's nonfasting value higherat 75 mg/dL. #6 Impaired fasting glucose with elevated hemoglobin A1c Continue with dietary modifications and efforts at improving and then maintaining stable weight. #7 Obesity class 2 (BMI >35 kg/m??) Discussed the importance of healthy lifestyle habits as it relates to optimizing weight as possible. #8 Abdominal aorta + lower extremity peripheral arterial occlusive disease without claudication Continue with vascular risk factor modification and aerobic activity (walking + cycling); proceed with noninvasive lower extremity arterial studies if concern for symptomatic disease. #9 Obstructive sleep apnea, treated with CPAP #10 Status post right breast lumpectomy and radiation for infiltrating ductal carcinoma Discussed with the patient and I believe all questions were answered. Addendum: Echocardiogram with mild left ventricular enlargement, normal wall motion, and calculatedLV ejection fraction 67%. Severely calcified mitral annulus with calcification of the leaflets and chordae. Diastolic mean gradient 7 mm Hg at heart rate 94 beats per minute. Moderate-severe mitral valve regurgitation with regurgitant volume 51 ml. Estimated right ventricular systolic pressure 41 mm Hg. Normal inferior vena cava size with normal inspiratory collapse. Compared to November 2022 nosignificant change. Findings discussed with patient as well as one of my colleagues specializing inmixed valvular heart disease; plan to repeat exercise VO2 (cycle) study without adjunct imaging prior to deciding on valvular intervention at this time. documented in this encounter Plan of Treatment Upcoming Encounters Date Type Department Care Team (Late st Contact Info) Description 09/24/2023 9:15 AM CDT Appointment Department of Cardiovascular Diseases in [place], [place] [address] [place] [address] Venkata Mayen M.D. [address] [place] [address] 09/24/2023 11:00 AM CDT Office Visit Department of Cardiovascular Medicine in [place], [place] [address] [place] [address] Venkata Mayen M.D. [address] [place] [phone] documented as of this encounter Visit Diagnoses Diagnosis Chronic Diastolic (Congestive) Heart Failure (HCC)- Primary Elevated Lipoprotein A Coronary Artery Disease Without Angina Pectoris Regurgitation Mitral 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 documented in this encounter Additional Health Concerns Assessment Noted Time PHQ-9 Depression Total Score: 6 08/21/19 13 4:08 PM CDT documented as of this encounter Care Teams Wholesale Loan Processor Relationship Specialty Start Date End Date Elsewhere, Pcp PCP - General Internal Medicine 12/12/21 documented as of this encounter
== END 2023-08-27 07:47 | disposition home or self-care (01) ==
LOC: NFLDREF 08-31 10:32
PROVIDERS: PCP Family Medicine; Referring Provider Family Medicine; Visit Provider Family Medicine
DX: I10 Essential (primary) hypertension (principal); E78.5 Hyperlipidemia, unspecified; E55.9 Vitamin D deficiency, unspecified; R73.03 Prediabetes
CPT/HCPCS: 80053; 80061; 82306

== ENCOUNTER 2023-09-17 13:43 | Outpatient (CLI) | payer MEDICARE, BC, SELFPAY ==
--- OUTSIDE RECORDS SUMMARY | 2023-09-17 13:46 | XMS_ITS | Encounter Summary ---
Author Organization [facility] Address [address] [place] [address] Care Team Providers Care Ingot Weigher Name Role Phone Elsewhere, Pcp Primary Care Provider Unavailabl e Reason for Visit * Reason Onset Date Comments Appt Request 06/30/2023 Encounter Details Date Type Department Care Team (Latest Contact Info) Description 06/30/2023 Clinical Communication Department of Cardiovascular Medicine in [place], [place] [address] [place] [address] Manager BodyRoderick M.D. Appt Request Social History Tobacco Use [...] How often do you attend chur or yazidi services? More than 4 times per year 11/12/2021 Do you belong to any clubs o r organizations such as jainism groups, unions, fraternal or athletic groups, or [...] and heating? 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 [address] [place] [phone] 09/24/2023 11:00 AM CDT Office Visit Department of Cardiovascular Medicine in [place], [place] [address] [place] [address] Venkata Mayen M.D. [address] [place] [address] documented as of this encounter Visit Diagnoses Not on filedocumented in this encounter Additional Health Concerns Assessment Noted Time PHQ-9 Depression Total Score: 6 08/21/19 13 4:08 PM CDT documented as of this encounter Care Teams Ingot Weigher Relationship Specialty Start Date End Date Elsewhere, Pcp PCP - General Internal Medicine 12/12/21 documented as of this encounter
--- OUTSIDE RECORDS SUMMARY | 2023-09-17 13:46 | XMS_ITS | Encounter Summary ---
Author Organization [facility] Address [address] [place] [address] Care Team Providers Care Tray Checker Name Role Phone Elsewhere, Pcp Primary Care Provider Unavailabl e Reason for Visit * Reason Onset Date Comments Echo EST 07/2206/30/2023 Encounter Details Date Type Department Care Team (Latest Contact Info) Description 06/30/2023 Clinical Communication Department of Cardiovascular Medicine in [place], [place] [address] [place] [phone] Venkata Mayen M.D. [address] [place] [phone] Echo EST 07/22 Social History Tobacco Use Types Packs/Day Years Used Date Smoking Tobacco: Former Cigarettes 0 08/27/1965 - 04/01/1979 Passive Smoke Exposure: Past Smokeless Tobacco: Never Alcohol Use Standard Drinks/Week Comments Yes 10 (1 standard drink = 0.6 oz pu re alcohol) [facility] Utilities Answer Date Recorded In the past 12 months has e Risk Ident, gas, oil, or water [employer] threatened to shut off services in your [...] any clubs o r organizations such as hinduism groups, unions, fraternal or athletic groups, or [...] hard at all 11/12/2021 [facility] of Occupat ional Health - Occupational Stress [...] your living situation today? I have a [facility] place to live 07/17/2023 Education Answer Date Recorded What is the highest level of school you have completed or the highest degree you have received? 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 [address] [place] [phone] 09/24/2023 11:00 AM CDT Office Visit Department of Cardiovascular Medicine in [place], [place] [address] [place] [phone] Venkata Mayen M.D. [address] [place] [phone] documented as of this encounter Visit Diagnoses Not on filedocumented in this encounter Additional Health Concerns Assessment Noted Time PHQ-9 Depression Total Score: 6 08/21/19 13 4:08 PM CDT documented as of this encounter Care Teams Tray Checker Relationship Specialty Start Date End Date Elsewhere, Pcp PCP - General Internal Medicine 12/12/21 documented as of this encounter
--- OUTSIDE RECORDS SUMMARY | 2023-09-17 13:46 | XMS_ITS | Clinical Summary ---
Author Organization [facility] Address [address] [place] [address] Care Team Providers Care Tire And Lube Technician Name Role Phone Elsewhere, Pcp Primary Care Provider Unavailabl e Source Comments Patient records contain information from all sites at [facility]. For routine questions regarding patient records, call [phone] during business hours, M-F 8:00 AM - 5:00 PM Central Time. Record requests for emergency care only can be directed to [phone] at any time.[facility] Allergies Active Allergy Reactions Criticality Noted Date [...] tablet 3 12/28/2020 Active miscellaneous medical supply [facility] CPAP machine for home use at [...] Overview: Added automatically from request for surgery [id number] Chronic Diastolic (Congestive) Heart Failure Overview: Added automatically from request for surgery [id number] Pain Chest 11/19/2021 Overview: Added automatically from request for surgery [id number] Atherosclerotic Heart Diseas e Of [place] Coronary Artery Without Angina Pectoris 11/14/2020 Coronary [...] Orders Only Department of Cardiovascular Medicine in [place], [place] [address] [place] [phone] Venkata Mayen M.D. 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 Echo EST 07/2206/30/2023 Clinical Communication Department of Cardiovascular Medicine in [place], [place] [address] [place] [address] Scooter Mechanic Roderick M.D. Appt Request from Last 3 [...] drink = 0.6 oz pu re alcohol) [facility] Utilities Answer Date Recorded In the past 12 months has [facility] [employer], gas, oil, or water [employer] threatened to shut off services in your [...] declined 11/12/2021 How often do you attend [facility] or buddhism services? More than 4 times per year [...] and heating? Not hard at all 11/12/2021 [facility] of Occupat ional Health - Occupational Stress [...] your living situation today? I have a [facility] place to live 07/17/2023 Education Answer Date Recorded What is the highest level of school you have completed or the highest degree you have received? 12th grade 10/02/2020 Sex and Gender Information Value Date Recorded Sex Assigned at Female 05/03/2021 9:58 AM IN HOME TUTOR Gender Identity Female 10/02/2020 7:16 PM CDT [...] CDT Appointment Department of Cardiovascular Diseases in [place], [place] [address] [place] [address] Venkata Mayen M.D. [address] [place] [phone] 09/24/2023 11:00 AM CDT Office Visit Department of Cardiovascular Medicine in [place], [place] [address] [place] [phone] Venkata Mayen M.D. [address] [place] [phone] Health Maintenance Due Date Last Done Comments [...] Completed 07/23/2023 Medical Devices Implanted Type Area Maintenance Shop Clerk Device Identifier Shelf Expiration Date Model / Serial / Lot Cardiac Stent Cardiac Stent Heart Description:5 cardiac stents Stnt Synergy Xd De 3.50x38 - [id number] Implanted:Qty : 1 on 11/14/2020 by Dontae Rubio M.D. at [facility] Cardiac Stent N/A: Coronary [employer] 06/08/2022 [id number] / / [id number] Description:Mid RCA Stnt Synergy Xd De 4.00x24 - [id number] Implanted:Qty : 1 on 11/14/2020 by Dontae Rubio M.D. at [facility] Cardiac Stent N/A: Coronary [employer] 09/19/2021 [id number] / / [id number] Description:Prox RCA Stnt Ronyx Kenji Rx 4x18 - [id number] Implanted:Qty : 1 on 11/22/2021 by Kishan Patricia M.D., Ph.D. at [facility] Cardiac Stent N/A: Coronary Medtronic 06/27/2024 [id number] / / [id number] Description:Ost RCA Hardware E.G. Pins/Screws/R ods Hardware [...] CDT) Ventricular Rate ECG/Min 94 BPM MUSE VT Interval 152 ms MUSE QRSD Interval 86 ms MUSE QT Interval 358 ms MUSE QTC Interval 447 ms MUSE P [place] 47 degrees MUSE R [place] 38 degrees MUSE T Wave [place] 18 degrees MUSE 07/23/2023 1:16 PM CDT [...] CDT Venkata Mayen M.D. LAB BLOOD ADD-ON [facility] [address] [place] [address], [facility] [address] [place] [address] * NT-Pro B-Type Natriuretic Peptide (BNP) (07/23/2023 [...] M.D. LAB BLOOD ADD-ON Performing Organization Address City/[facility]/ZIP Co de Phone Number [facility] [address] [place], [place] [id number] [place] [address] [facility] 200 [place] [address] * CBC without Differential (07/23/2023 1:03 PM [...] M.D. LAB BLOOD ADD-ON Performing Organization Address City/[facility]/ZIP Co de Phone Number [facility] [address] [place] [address], [facility] [address] [place] [address] * (ABNORMAL) Hemoglobin A1c (07/23/2023 1:03 PM [...] CDT Venkata Mayen M.D. LAB BLOOD ADD-ON [facility] [address] [place] [address], [facility] [address] [place] [address] * Comprehensive Metabolic Panel (07/23/2023 1:03 PM [...] CDT Venkata Mayen M.D. LAB BLOOD ADD-ON [facility] [address] [place] [address], [facility] [address] [place] [address] from Last 3 Months Advance Directives For more information, please contact: [phone] Documents on File Type Date Recorded Patient Masseur/Masseuse Expl anation Advance Directives 08/26/2012 12:00 AM [...] Answer Comments Full Code: Discussed Care Teams Tire And Lube Technician Relationship Specialty Start Date End Date Elsewhere, Pcp PCP - General Internal Medicine 12/12/21
--- OUTSIDE RECORDS SUMMARY | 2023-09-17 13:46 | XMS_ITS | Referral Summary ---
Author Organization [facility] Address [address] [place] [address] Care Team Providers Care Protective Services Social Worker Name Role Phone Elsewhere, Pcp Primary Care Provider Unavailabl e Source Comments Patient records contain information from all sites at [facility]. For routine questions regarding patient records, call [phone] during business hours, M-F 8:00 AM - 5:00 PM Central Time. Record requests for emergency care only can be directed to [phone] at any time.[facility] Encounters Date Type Department Care Team Description 08/01/2023 Orders Only Department of Cardiovascular Medicine in [place], [place] [address] [place] [address] Venkata Mayen M.D. 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 (Primary Dx); Regurgitation Mitral 07/23/2023 2:52 PM CDT - 07/23/2023 11:59 PM CDT Hospital Encounter Department of Cardiovascular Diseases in [place], [place] [address] [place] [address] Venkata Mayen M.D. 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 Echo EST 07/2206/30/2023 Clinical Communication Department of Cardiovascular Medicine in [address] [phone] Detective Chief Roderick M.D. Appt Request from Last 3 [...] tablet 3 12/28/2020 Active miscellaneous medical supply [facility] CPAP machine for home use [...] Overview: Added automatically from request for surgery [id number] Chronic Diastolic (Congestive) Heart Failure Overview: Added automatically from request for surgery [id number] Pain Chest 11/19/2021 Overview: Added automatically from request for surgery [id number] Atherosclerotic Heart Diseas e Of [place] Coronary Artery Without Angina Pectoris 11/14/2020 Coronary [...] drink = 0.6 oz pu re alcohol) [facility] N[employer] TVities Answer Date Recorded In the past 12 months has [facility] [employer], gas, oil, or water [employer] threatened to shut off services in your [...] declined 11/12/2021 How often do you attend [facility] or pentecostalism services? More than 4 times per year 11/12/2021 Do you belong to any clubs o r organizations such as confucianist groups, unions, fraternal or athletic groups, or [...] and heating? Not hard at all 11/12/2021 [facility] - Occupational Stress Questionnaire Answer [...] your living situation today? I have a [facility] place to live 07/17/2023 Education Answer Date Recorded What is the highest level of school you have completed or the highest degree you have received? 12th grade 10/02/2020 Sex and Gender Information Value Date Recorded Sex Assigned at Female 05/03/2021 9:58 AM SUPERVISOR PLASTERING Gender Identity Female 10/02/2020 7:16 PM CDT [...] CDT Appointment Department of Cardiovascular Diseases in [place], [place] [address] [place] [address] Venkata Mayen M.D. [address] [place] [phone] 09/24/2023 11:00 AM CDT Office Visit Department of Cardiovascular Medicine in [place], [place] [address] [place] [phone] Venkata Mayen M.D. 200 [place] [address] Medical Devices Implanted Type Area Fur Examiner Device Identifier Shelf Expiration Date Model / Serial / Lot Cardiac Stent Cardiac Stent Heart Description:5 cardiac stents Stnt Synergy Xd De 3.50x38 - [id number] Implanted:Qty : 1 on 11/14/2020 by Dontae Rubio M.D. at [facility] Cardiac Stent N/A: Coronary [employer] 06/08/2022 [id number] / / [id number] Description:Mid RCA Stnt Synergy Xd De 4.00x24 - [id number] Implanted:Qty : 1 on 11/14/2020 by Dontae Rubio M.D. at [facility] Cardiac Stent N/A: Coronary [employer] 09/19/2021 [id number] / / [id number] Description:Prox RCA Stnt Ronyx Kenji Rx 4x18 - [id number] Implanted:Qty : 1 on 11/22/2021 by Kishan Patricia M.D., Ph.D. at [facility] Cardiac Stent N/A: Coronary Medtronic 06/27/2024 [id number] / / [id number] Description:Ost RCA Hardware E.G. Pins/Screws/R ods Hardware [...] CDT) Ventricular Rate ECG/Min 94 BPM MUSE DE Interval 152 ms MUSE QRSD Interval 86 ms MUSE QT Interval 358 ms MUSE QTC Interval 447 ms MUSE P Ong 47 degrees MUSE R Ong 38 degrees MUSE T Wave [place] 18 degrees MUSE 07/23/2023 1:16 PM CDT [...] M.D. LAB BLOOD ADD-ON Performing Organization Address [facility] Co de Phone Number [facility] [address] [place] [address], [facility] [address] [address] * NT-Pro B-Type Natriuretic Peptide (BNP) (07/23/2023 [...] M.D. LAB BLOOD ADD-ON Performing Organization Address [facility] Co de Phone Number [facility] [address] [place] [address], [facility] [address] [place] [address] * CBC without Differential (07/23/2023 1:03 PM [...] Mayen M.D. LAB BLOOD ADD-ON [facility] [address] [place] [address], [facility] [address] [address] * (ABNORMAL) Hemoglobin A1c (07/23/2023 1:03 PM CDT) Pathologist [facility] Hemoglobin A1c, B 5.8(H) 4.0 - 5.6 % 07/23/2023 1:47 PM CDT DTL Comment: Hemoglobin A1c values of 5.7-6.4 percent indicate an increased risk for developing diabetes mellitus. In diabetic patients, HbA1c goals should be discussed with healthcare provider. Blood (Blood, Venous) 07/23/2023 1:03 PM CDT 07/23/2023 1:28 PM CDT Venkata Mayen M.D. LAB BLOOD ADD-ON [facility] [address] [place] [address], [place] DTL [facility] [address] [place] [address] * Comprehensive Metabolic Panel (07/23/2023 1:03 PM CDT) Pathologist [facility] Potassium, S 4.7 3.6 - 5.2 mmol/L [...] CDT Venkata Mayen M.D. LAB BLOOD ADD-ON [facility] [address] [place] [address], [place] DTL [facility] [address] [place] [address] from Last 3 Months Advance Directives For more information, please contact: [phone] Documents on File Type Date Recorded Patient Staff Developer Expl anation Advance Directives 08/26/2012 12:00 AM [...] Answer Comments Full Code: Discussed Care Teams Protective Services Social Worker Relationship Specialty Start Date End Date Elsewhere, Pcp PCP - General Internal Medicine 12/12/21
--- OUTSIDE RECORDS SUMMARY | 2023-09-17 13:46 | XMS_ITS | Encounter Summary ---
Author Organization [facility] Address [address] [place] [address] Care Team Providers Care Hospitalist Medical Director Name Role Phone Elsewhere, Pcp Primary Care Provider Unavailabl e Reason for Referral * Outpatient (Routine) - Authorized Specialty Diagnoses / Procedures Referred By Contac t Referred To Contact Cardiovascular Disease Venkata Mayen M.D. [address] [place] [address] [facility] Referral ID Status Reason Start Date Expiration Date V isits Requested Visits Authorized [id number] Authorized 08/01/2023 01/30/2025 1 1 * Outpatient (Routine) - Authorized Specialty Diagnoses / Procedures Referred By Contac t Referred To Contact Diagnoses 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 Regurgitation Mitral Procedures Cardiopulmonary (VO2) Exercise Test Venkata Mayen M.D. [address] [place] [address] [facility] Referral ID Status Reason Start Date Expiration Date V isits Requested Visits Authorized [id number] Authorized 08/01/2023 07/31/2024 1 1 Encounter Details Date Type Department Care Team (Late st Contact Info) Description 08/01/2023 Orders Only Department of Cardiovascular Medicine in [place], [place] 200 [place] [address] Venkata Mayen M.D. 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 More than 4 times per year 11/12/2021 Do you belong to any clubs o r organizations such as restoration groups, unions, fraternal [...] and heating? Not hard at all 11/12/2021 [facility] of Occupat ional Health - [...] Sex Assigned at Female 05/03/2021 9:58 AM INFRASTRUCTURE TECHNICIAN Gender Identity Female 10/02/2020 7:16 PM CDT Sexual Orientation Straight 10/08/2020 6: 58 AM CDT documented as of this encounter Plan of Treatment Upcoming Encounters Date Type Department Care Team (Late st Contact Info) Description 09/24/2023 9:15 AM CDT Appointment Department of Cardiovascular Diseases in [place], [place] [address] [place] [address] Venkata Mayen M.D. [address] [place] [phone] 09/24/2023 11:00 AM CDT Office Visit Department of Cardiovascular Medicine in [place], [place] [address] [place] [address] Venkata Mayen M.D. [address] [place] [phone] Scheduled Orders Name Type Priority Associated Diagnoses [...] documented as of this encounter Care Teams Hospitalist Medical Director Relationship Specialty Start Date End Date Elsewhere, Pcp PCP - General Internal Medicine 12/12/21 documented as of this encounter
--- OUTSIDE RECORDS SUMMARY | 2023-09-17 13:46 | XMS_ITS ---
Author Organization [facility] Address [address] [place] [address] Care Team Providers Care Shipping Hand Name Role Phone Unavailable Unavailable Unavailable Surgery Details Not on file Complications Check Surgery Details section. Procedure Estimated Blood Loss Check Surgery Details section. Procedure Findings Check Surgery Details section. Procedure Specimens Taken Check Surgery Details section.
--- OUTSIDE RECORDS SUMMARY | 2023-09-17 13:46 | XMS_ITS | Encounter Summary ---
Author Organization [facility] Address [address] [place] [address] Care Team Providers Care Operator Receptionist Name Role Phone Elsewhere, Pcp Primary Care Provider Unavailabl e Reason for Visit * Outpatient (Routine) - Closed Specialty Diagnoses / Procedures Referred By Alicia hernandez Referred To Contact Cardiovascular Disease Venkata Mayen M.D. [address] [place] [address] [facility] Referral ID Status Reason Start Date Expiration Date Visits Re quested Visits Authorized [id number] Closed 12/12/2022 12/11/2025 1 1 Encounter Details Date Type Department Care Team (Latest Contact Info) Description 07/23/2023 2:00 PM CDT Office Visit Department of Cardiovascular Medicine in [place], [place] 200 [place] [phone] Venkata Mayen M.D. [address] [place] [address] Chronic Diastolic (Congestive) Heart Failure [...] drink = 0.6 oz pu re alcohol) [facility] Utilities Answer Date Recorded In the [...] How often do you attend chur or jewish services? More than 4 times per year 11/12/2021 Do you belong to any clubs o r organizations such as christianity groups, unions, fraternal or athletic groups, or [...] and heating? Not hard at all 11/12/2021 [facility] of Occupat ional Health - Occupational Stress [...] Sex Assigned at Female 05/03/2021 9:58 AM BACTERIOLOGIST FOOD Gender Identity Female 10/02/2020 7:16 PM CDT [...] a 73 y.o. female who returns to [facility] Cardiovascular Medicine with our lastvisit occurring on [...] last visit. She completed cardiac rehabilitation at [facility] in 2021; however, she has unfortunately been [...] collaterals from the distal LAD and septal teacher vocal. No significant obstructive disease in the left [...] CDT Appointment Department of Cardiovascular Diseases in [place], [place] [address] [place] [address] Venkata Mayen M.D. [address] [place] [address] 09/24/2023 11:00 AM CDT Office Visit Department of Cardiovascular Medicine in [place], [place] [address] [place] [address] Venkata Mayen M.D. [address] [place] [phone] documented as of this encounter Visit Diagnoses Diagnosis Chronic Diastolic (Congestive) Heart Failure (HCC)- Primary Elevated Lipoprotein A Coronary Artery Disease Without Angina Pectoris Regurgitation Mitral 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 documented in this encounter Additional Health Concerns Assessment Noted Time PHQ-9 Depression Total Score: 6 08/21/19 13 4:08 PM CDT documented as of this encounter Care Teams Operator Receptionist Relationship Specialty Start Date End Date Elsewhere, Pcp PCP - General Internal Medicine 12/12/21 documented as of this encounter
--- OUTSIDE RECORDS SUMMARY | 2023-09-17 13:46 | XMS_ITS | Encounter Summary ---
Author Organization [facility] Address [address] [place] [address] Care Team Providers Care Mold Laminator Name Role Phone Elsewhere, Pcp Primary Care Provider Unavailabl e Reason for Referral * Outpatient (Routine) - Closed Specialty Diagnoses / Procedures Referred By Alicia hernandez Referred To Contact Diagnoses Dyspnea On Exertion Ischemic Heart Chronic Disease Hyperlipidemia On Treatment Regurgitation Mitral Chronic Diastolic (Congestive) Heart Failure (HCC) 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 Procedures Echo Transthoracic (TTE) Venkata Mayen M.D. 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 [address] [place] [address] [facility] Referral ID Status Reason Start Date Expiration Date Visits Re quested Visits Authorized [id number] Closed 12/12/2022 12/12/2023 1 1 Encounter Details Date Type Department Care Team (Latest Contact Info) Description 07/23/2023 2:52 PM CDT - 07/23/2023 11:59 PM CDT Hospital Encounter Department of Cardiovascular Diseases in [place], [place] [address] [place] [address] Venkata Mayen M.D. [address] [place] [address] Dyspnea On Exertion; Ischemic Heart Chronic Disease; [...] drink = 0.6 oz pu re alcohol) [facility] Utilities Answer Date Recorded In the past 12 months has e [employer], gas, oil, or water [employer] threatened to shut off services in your [...] often do you attend chur ch or mormonism services? More than 4 times per year 11/12/2021 Do you belong to any clubs o r organizations such as hoahaoism groups, unions, fraternal [...] and heating? Not hard at all 11/12/2021 [facility] [place] of Occupat ional Health - Occupational Stress [...] your living situation today? I have a [facility] place to live 07/17/2023 Education Answer Date Recorded What is the highest level of school you have completed or the highest degree you have received? 12th grade 10/02/2020 Sex and Gender Information Value Date Recorded Sex Assigned at Female 05/03/2021 9:58 AM PANELBOARD OPERATOR Gender Identity Female 10/02/2020 7:16 PM CDT Sexual Orientation Straight 10/08/2020 6: 58 AM CDT documented as of this encounter Medications at Time of Discharge Medication Sig Dispensed Refills Start Date End Date miscellaneous medical supply misc CPAP machine for home use at pressure 5-16 cmw, nasal mask x1/3month with nasal pillows x 2/mo 12/20/2020 albuterol 90 mcg/actuation inhaler Inhale 2 puffs [...] by mouth daily. 90 tablet 3 11/27/2022 nitroglycerin (NITROSTAT) 0.[address] [...] CDT Appointment Department of Cardiovascular Diseases in [place], [place] [address] [place] [phone] Venkata Mayen M.D. [address] [place] [phone] 09/24/2023 11:00 AM CDT Office Visit Department of Cardiovascular Medicine in [place], [place] [address] [place] [phone] Venkata Myaen M.D. [address] [place] [phone] documented as of this encounter Procedures Procedure [...] documented as of this encounter Care Teams Mold Laminator Relationship Specialty Start Date End Date Elsewhere, Pcp PCP - General Internal Medicine 12/12/21 documented as of this encounter
--- OUTSIDE RECORDS SUMMARY | 2023-09-17 13:46 | XMS_ITS | Encounter Summary ---
Author Organization [facility] Address [address] [place] [address] Care Team Providers Care Coal Chute Worker Name Role Phone Elsewhere, Pcp Primary Care Provider Unavailabl e Encounter Details Date Type Department Care Team (Latest Contact Info) Description 07/23/2023 12:43 PM CDT - 07/23/2023 2:51 PM CDT Hospital Encounter Department of Laboratory Medicine and Pathology, [facility], in [place], [place] [address] [place] [address] Venkata Mayen M.D. [address] [place] [address] Dyspnea On Exertion; Ischemic Heart Chronic Disease; [...] re alcohol) [facility] Utilities Answer Date Recorded In the past 12 months has [facility] electric, gas, oil, or water company [...] declined 11/12/2021 How often do you attend [facility] or yazidi services? More than 4 times per year 11/12/2021 Do you belong to any clubs o r organizations such as oriental orthodox groups, unions, [...] and heating? Not hard at all 11/12/2021 [facility] [place] of Occupat ional Health - Occupational Stress [...] your living situation today? I have a [facility] place to live 07/17/2023 Education Answer Date Recorded What is the highest level of school you have completed or the highest degree you have received? 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 [address] [place] [address] 09/24/2023 11:00 AM CDT Office Visit Department of Cardiovascular Medicine in [place], [place] [address] [place] [address] Venkata Mayen M.D. [address] [place] [address] documented as of this encounter Procedures Procedure [...] CDT Venkata Mayen M.D. LAB BLOOD ADD-ON [facility] [address] [place] [address], [facility] [address] [place] [address] * Comprehensive Metabolic Panel (07/23/2023 1:03 PM CDT) Pathologist [facility] Potassium, S 4.7 3.6 - 5.2 [...] Venkata Mayen M.D. LAB BLOOD ADD-ON [facility] [address] [place] [address], [facility] [address] [place] [address] * (ABNORMAL) Lipid Panel (07/23/2023 1:03 PM CDT) Pathologist [facility] Triglycerides 98 mg/dL 07/23/2023 3:19 PM CDT [...] CDT Venkata Mayen M.D. LAB BLOOD ADD-ON [facility] [address] [place], [place] [phone] [place] [address] [facility] [address] [place] [address] * (ABNORMAL) Hemoglobin A1c (07/23/2023 1:03 PM [...] M.D. LAB BLOOD ADD-ON Performing Organization Address City/[facility]/ZIP Co de Phone Number [facility] [address] [place] [address], [facility] [address] [place] [address] * NT-Pro B-Type Natriuretic Peptide (BNP) (07/23/2023 [...] M.D. 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
--- OUTSIDE RECORDS SUMMARY | 2023-09-17 13:46 | XMS_ITS | Encounter Summary ---
Author Organization [facility] Address [address] [place] [address] Care Team Providers Care Test Tech Name Role Phone Elsewhere, Pcp Primary Care Provider Unavailabl e Reason for Visit * Reason Onset Date Comments Pre-visit Intake 07/22/2023 Encounter Details Date Type Department Care Team (Latest Contact Info) Description 07/22/2023 10:45 AM CDT Clinical Communication Virtual Review in [place], [place] 200 [place] [address] Pre-visit Intake Social History Tobacco Use Types Packs/Day Years Used Date Smoking Tobacco: Former Cigarettes 0 08/27/1965 - 04/01/1979 Passive Smoke Exposure: Past Smokeless Tobacco: Never Tobacco Cessation:Counseling Given: Not Answered Alcohol Use Standard Drinks/Week Comments Yes 10 (1 standard drink = 0.6 oz pu re alcohol) [facility] Utilities Answer Date Recorded In the past 12 months has [facility] electric, gas, oil, or water company threatened [...] declined 11/12/2021 How often do you attend [facility] or restoration services? More than 4 times per year 11/12/2021 Do you belong to any clubs o r organizations such as buddhism groups, unions, fraternal or athletic groups, or [...] Not hard at all 11/12/2021 [facility] [place] of Occupat ional Health - Occupational Stress [...] your living situation today? I have a [facility] place to live 07/17/2023 Education Answer Date Recorded What is the highest level of school you have completed or the highest degree you have received? 12th grade 10/02/2020 Sex and Gender Information Value Date Recorded Sex Assigned at Female 05/03/2021 9:58 AM BUSINESS DEAN Gender Identity Female 10/02/2020 7:16 PM CDT Sexual Orientation Straight 10/08/2020 6: 58 AM CDT documented as of this encounter Plan of Treatment Upcoming Encounters Date Type Department Care Team (Late st Contact Info) Description 09/24/2023 9:15 AM CDT Appointment Department of Cardiovascular Diseases in [place], [place] [address] [place] [address] Venkata Mayen M.D. [address] [place] [address] 09/24/2023 11:00 AM CDT Office Visit Department of Cardiovascular Medicine in [place], [place] [address] [place] [address] Venkata Mayen M.D. [address] [place] [address] documented as of this encounter Visit Diagnoses Not on filedocumented in this encounter Additional Health Concerns Assessment Noted Time PHQ-9 Depression Total Score: 6 08/21/19 13 4:08 PM CDT documented as of this encounter Care Teams Test Tech Relationship Specialty Start Date End Date Elsewhere, Pcp PCP - General Internal Medicine 12/12/21 documented as of this encounter
--- OUTSIDE RECORDS SUMMARY | 2023-09-17 13:46 | XMS_ITS | Clinical Summary ---
Author Organization [facility] Address [place], [place] [address] Care Team Providers Care Manager Clinical Pharmacy Name Role Phone Lorin Parson MD Primary [...] Documents on File Type Date Recorded Patient Substation Inspector Expl anation Healthcare Directive 08/11/2012 12:00 AM A DVANCE DIRECTIVE * Full Code (Latest Code Status on File) Date Activated Date Inactivated Comments 06/19/2012 5:13 PM 06/22/2012 2:44 PM * Full Code Date Activated Date Inactivated Comments 06/11/2012 10:20 AM 06/11/2012 5:42 PM Care Teams Manager Clinical Pharmacy Relationship Specialty Start Date End Date Lorin Parson MD [address] [place] [address] PCP - General Family Practice 11/10/19
--- NOTE | 2023-09-17 14:00 | CRLHL7_ITS ---
For Patients: As a result of the Century Cures Act, medical imaging exams and procedure reports are released immediately into your electronic medical record. You may view this report before your referring provider. If you have questions, please contact your health care provider. DXA BONE MINERAL DENSITY STUDY Reason for exam: Follow-up osteopenia. Current height (in): 62. Weight (lb): 220. Menopause age: 48. Ethnicity: White. 1. Have you had a previous hip or vertebral fracture? No. 2. Have you had any fractures during your adult life which did not result from significant trauma (e.g., auto accident)? Yes. 3. Did either of your parents have a hip fracture? No. 4. Do you smoke? No. 5. Have you ever taken Glucocorticoids? No. 6. Do you have rheumatoid arthritis? No. 7. Do you have secondary osteoporosis? No. 8. Do you drink 3 or more alcoholic drinks per day? Yes. 9. Are you being treated for osteoporosis? No. 10. Have you ever taken any of the following medications: Actonel, Evista, Fosamax, Miacalcin, Reclast, Boniva, Forteo, HRT (i.e., estrogen/hormone therapy), Protelos, Prolia, Vitamin D, Calcium, other ??? please specify. ANSWER: Yes, vitamin D and calcium. 11. Do you have any of the following medical conditions: Anorexia or bulimia, asthma or emphysema, end stage renal disease, hyperparathyroidism, any seizure disorders, cancer, inflammatory bowel diseases, hysterectomy, other ??? please specify. ANSWER: Yes, cancer. 12. What was your maximum height (inches)? 63.5. 13. Do you perform weight bearing exercise regularly? No. 14. Do you regularly consume dairy products? No. 15. Do you drink caffeinated beverages? Yes. 16. At what age did your period start? 10. 17. Are you premenopausal? No. 18. How many full-term pregnancies have you had? 1. 19. Have you ever missed your period for more than 6 months in a row (not including or menopause)? No. TECHNIQUE: Bone mineral density study was performed using the [employer]. FINDINGS: The results of the study expressed as bone mineral density (BMD) are as follows: Lumbar spine L1, L3, L4: BMD: 1.189 g/cm2. T-score: 1.2. Z-score: 3.7 Neck Left: BMD: 0.723 g/cm2. T-score: -1.1. Z-score: 1.0 Right: BMD: 0.633 g/cm2. T-score: -1.9. Z-score: 0.2 Total Left: BMD: 1.011 g/cm2. T-score: 0.6. Z-score: 2.4 Right: BMD: 0.993 g/cm2. T-score: 0.4. Z-score: 2.2 IMPRESSION: Osteopenia. *Comparison exams done prior to 08/2019 were performed on different unit, [facility]. COMPARISON: Compared with scan of 07/04/2014, the bone mineral density has increased by 14.5 percent at the spine and increased by 1.3 percent at the hip. Compared with scan of 03/08/2013, the bone mineral density has decreased by 8.4 percent at the spine and decreased by 1.6 percent at the hip. FRAX 10-year Fracture Risk Major Osteoporotic Fracture: 21% Hip Fracture: 5.7% Reported Risk Factors: [place] () Neck BMD=0.633, BMI=40.2, previous fracture, alcohol use. MILTON EDWARDS M.D. Transcribed: 2:01 p.m. [email or web address] desiree/Dictated by: Milton Edwards MD @ 09/19/2023 12:25:00 PM (Electronically Signed)
== END 2023-09-17 13:44 | disposition home or self-care (01) ==
LOC: RAD 13:44
PROVIDERS: PCP Family Medicine; Visit Provider Family Medicine
DX: M85.80 Other specified disorders of bone density and structure, unspecified site (principal); M85.89 Other specified disorders of bone density and structure, multiple sites
CPT/HCPCS: 77080

== ENCOUNTER 2023-12-19 07:34 | Outpatient (CLI) | payer MEDICARE, BC, SELFPAY ==
--- OUTSIDE RECORDS SUMMARY | 2023-12-19 11:50 | XMS_ITS | Encounter Summary ---
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 [address] [place] [phone] 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 [address] [place] [phone] [facility] Referral ID Status Reason Start Date Expiration Date Visits Re quested Visits Authorized [id number] Closed 08/01/2023 07/31/2024 1 1 Encounter Details Date Type Department Care Team (Latest Contact Info) Description 09/24/2023 8:50 AM CDT - 09/24/2023 11:59 PM CDT Hospital Encounter Department of Cardiovascular Diseases in [place], [place] [address] [place] [address] Venkata Mayen M.D. 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 More than 4 times per year 11/12/2021 Do you belong to any clubs o r organizations such as rastafari groups, unions, fraternal [...] and heating? 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 07/31/2018 furosemide (LASIX) 40 mg tablet Take 1 tablet (40 mg total) by mouth daily. 90 tablet 3 11/27/2022 miscellaneous medical supply [facility] CPAP machine for home use at pressure 5-16 cmw, nasal mask x1/3month with nasal pillows x 2/mo 12/20/2020 nitroglycerin (NITROSTAT) 0.[address] 0.4 mg under the tongue as needed for chest pain. ramipriL (ALTACE) 5 mg capsule Take 2 [...] mouth at bedtime. 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 - 09/24/2023 See PDF For Result Venkata Mayen M.D. 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
--- OUTSIDE RECORDS SUMMARY | 2023-12-19 11:50 | XMS_ITS ---
Author Organization [facility] Address [address] [place] [address] Care Team Providers Care Change Analyst Name Role Phone Unavailable Unavailable Unavailable Surgery Details Not on file Complications Check Surgery Details section. Procedure Estimated Blood Loss Check Surgery Details section. Procedure Findings Check Surgery Details section. Procedure Specimens Taken Check Surgery Details section.
--- OUTSIDE RECORDS SUMMARY | 2023-12-19 11:50 | XMS_ITS | Clinical Summary ---
Author Organization [facility] Address [address] [place] [id number] Care Team Providers Care Screen Roller Name Role Phone Elsewhere, Pcp Primary Care Provider Unavailabl e Source Comments Patient records contain information from all sites at [facility]. For routine questions regarding patient records, call [phone] during business hours, M-F 8:00 AM - 5:00 PM Central Time. Record requests for emergency care only can be directed to [phone] at any time.[facility] Allergies Active Allergy Reactions Criticality Noted Date [...] tablet 3 12/28/2020 Active miscellaneous medical supply mis CPAP machine for home use at pressure 5-16 cmw, nasal mask x1/3month with nasal pillows x 2/mo 12/20/2020 Active ramipriL (ALTACE) 5 mg capsule Take 2 capsules (10 mg total) by mouth daily. 180 capsule 3 04/12/2021 Active verapamiL (CALAN-SR) 240 mg ER tablet Take 1 tablet (240 mg total) by mouth at bedtime. 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 11/21/2021 Regurgitation Mitral 11/19/2021 Overview (11/19/2021): Added automatically from request for surgery [id number] Chronic Diastolic (Congestive) Heart Failure Overview (11/19/2021): Added automatically from request for surgery [id number] Pain Chest 11/19/2021 Overview (11/19/2021): Added automatically from request for surgery [id number] Atherosclerotic Heart Diseas e Of [place] Coronary Artery Without Angina Pectoris 11/14/2020 Coronary Artery Disease Without Angina Pectoris 09/02/2018 Apnea Sleep Obstructive 09/02/2018 Obesity Body Mass Index 30-39.9 Adult 09/02/2018 Impaired Fasting Glucose 09/02/2018 Cancer Breast Personal History 09/02/2018 Dyspnea On Exertion 08/10/2014 Hypertensive Heart Disease Without Heart Failure 06/08/2012 Ischemic Heart Chronic Disease 06/08/2012 Hyperlipidemia On Treatment 06/08/2012 Encounters Date Type Department Care Team Description 11/04/2023 1:12 PM CDT - 11/04/2023 11:59 PM CDT Hospital Encounter Department of Radiology, [facility], in [place], [place] [address] [place] [address] Venkata Mayen M.D. Peripheral Vascular Disease (HCC); Bruit Carotid Artery Discharge Disposition: Home or Self Care 11/04/2023 10:00 AM CDT Comprehensive Visit Department of Cardiovascular Medicine in [place], [place] [address] [place] [phone] Harjinder Blackmon M.D. Atherosclerotic Heart Disease Of [place] Coronary Artery Without Angina Pectoris (Primary Dx); Dyspnea On Exertion; 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; Regurgitation Mitral; Chronic Diastolic (Congestive) Heart Failure (HCC) 09/24/2023 11:00 AM CDT Office Visit Department of Cardiovascular Medicine in [place], [place] [address] [place] [address] Venkata Mayen M.D. 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; Regurgitation Mitral Discharge Disposition: Home or Self Care 09/24/2023 Orders Only Department of Cardiovascular Medicine in [place], [place] [address] [place] [address] Venkata Mayen M.D. Peripheral Vascular Disease (HCC) (Primary Dx); Bruit Carotid Artery from Last 3 Months Immunizations Name Administration [...] dec eased Breast cancer Sister 1 kandace carpenter Hyperlipidemia Sister 1 kandace carpenter Lymphoma Sister 1 kandace carpenter Breast cancer Sister 2 peyton duartetman Colon cancer Sister 2 peyton manoj Lung cancer Sister 2 peyton manoj Breast cancer Sister 3 joe mendiola Relation Name Status Comments Brothbernadette baxter Father raysa baxter Maternal Grandfather josiah conway Maternal Grandmother josiah conway Mother wendy baxter Paternal Grandmother augusta baxter Sister 1 kandace jayden Sister 2 peyton dyean Sister 3 joe mendiola Social History Tobacco Use Types Packs/Day Years Used Date Smoking Tobacco: Former Cigarettes 0 08/27/1965 - 04/01/1979 Passive Smoke Exposure: Past Smokeless Tobacco: Never Tobacco Cessation:Counseling Given: Not Answered Alcohol Use Standard Drinks/Week Comments Yes 10 (1 standard drink = 0.6 oz pu re alcohol) [facility] Purple Harryities Answer Date Recorded In the past 12 months has [facility] [employer], gas, oil, or water [employer] threatened to shut off services in your [...] often do you attend chur ch or hoahaoism services? More than 4 times per year 11/12/2021 Do you belong to any clubs o r organizations such as lutheran groups, unions, fraternal or athletic groups, or [...] hard at all 11/12/2021 [facility] [place] of Occupat ional Health - Occupational [...] your living situation today? I have a [facility] place to live 07/17/2023 Education Answer Date Recorded What is the highest level of school you have completed or the highest degree you have received? 12th grade 10/02/2020 Sex and Gender Information Value Date Recorded Sex Assigned at Female 05/03/2021 9:58 AM QUALITY MANAGEMENT COORDINATOR Gender Identity Female 10/02/2020 7:16 PM CDT Sexual Orientation Straight 10/08/2020 6: 58 AM CDT Last Filed Vital Signs Vital Sign Reading Time Taken Comments Blood Pressure 117/62 11/04/2023 10:00 AM CDT Pulse 82 11/04/2023 10:00 AM CDT Temperature 36.7 ??C (98.1 ??F) 11/23/2021 11:58 AM C DT Respiratory Rate 18 11/23/2021 12:00 PM CDT Oxygen Saturation 96% 11/23/2021 12:00 PM CDT Inhaled Oxygen Concentration - - Weight 100 kg (220 lb 10.9 oz) 11/04/2023 10:00 AM CDT Height 157.2 cm (5' 1.89) 11/04/2023 10:00 AM C DT Body Mass Index 40.51 11/04/2023 10:00 AM CDT Plan of Treatment Health Maintenance Due Date Last Done Comments Bone Density Scan (Osteoporo sis Screen) 1948 CT Colonography 1950 Cologuard 1950 Hepatitis C Screening 1950 Colonoscopy 03/24/2014 03/24/2009 (Perf ormed elsewhere) Colorectal Cancer Surveillance 03/24/2014 Mammogram 07/22/2017 07/22/2016 (Perf ormed elsewhere), 07/07/2014 (Performed elsewhere) RSV vaccine - (32-3 6 weeks) or 60+ years (1 - 1-dose 75+ series) 01/05/2023 Depression Screening (Annual PHQ-2) 03/24/2023 COVID-19 Vaccine (6 - 2023-2 5 season) 2023 01/11/2022, 08/22/2021, 12/20/2020, Additional history exists Influenza Vaccine (#1) 2023 , 01/10/2022, 03/08/2021, Additional history exists Creatinine Level (Kidney Fun ction Test) 07/22/2024 07/23/2023, 12/03/2022, 11/27/2022, Additional history exists Fasting Glucose for Diabetes Screening 07/22/2024 07/23/2023, 07/23/2023, 12/03/2022, Additional history exists Potassium Level 07/22/2024 07/23/2023, 11/22, 11/27/2022, Additional history exists Sodium Level 07/22/2024 07/23/2023, 11/22, 11/27/2022, Additional history exists Office Visit for Blood Press ure Check / Re-check 11/03/2024 11/04/2023 DTaP,Tdap,and Td Vaccines (2 - Td or Tdap) 07/23/2026 07/23/2016 Lipid (Cholesterol) Screening 07/22/2028, 11/27/2022, 11/12/2021, Additional history exists Pneumococcal vaccine (65+ years) Completed 01/26/20, 02/25/2013 Zoster Vaccines Completed 07/23/2022, 04/17/2022 Fall Risk Screen (Annual) Completed 11/04/2023 Medical Devices Implanted Type Area Black Studies Professor Device Identifier Shelf Expiration Date Model / Serial / Lot Cardiac Stent Cardiac Stent Heart Description:5 cardiac stents Stnt Synergy Xd De 3.50x38 - [id number] Implanted:Qty : 1 on 11/14/2020 by Dontae Rubio M.D. at [facility] Cardiac Stent N/A: Coronary [employer] 06/08/2022 [id number] / / [id number] Description:Mid RCA Stnt Synergy Xd De 4.00x24 - [id number] Implanted:Qty : 1 on 11/14/2020 by Dontae Rubio M.D. at [facility] Cardiac Stent N/A: Coronary [employer] 09/19/2021 [id number] / / [id number] Description:Prox RCA Stnt Ronyx Kenji Rx 4x18 - [id number] Implanted:Qty : 1 on 11/22/2021 by Kishan Patricia M.D., Ph.D. at [facility] Cardiac Stent N/A: Coronary Medtronic 06/27/2024 [id number] / / [id number] Description:Ost RCA Hardware E.G. Pins/Screws/R ods Hardware e.g. pins/screws /rods Wrist Description:Right wrist Procedures Procedure Name Priority Date/Time Associated Diagnosis Comments US CAROTID BILATERAL RAD - Routine (most inpatients and all outpatients) 11/04/2023 1:42 PM CDT Peripheral Vascular Disease (HCC) Bruit Carotid Artery CARDIOPULMONARY (VO2) EXERCISE TEST Routine 09/24/2023 10:07 AM CDT 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 Regurgitation Mitral HEMOGLOBIN A1C, B Routine 07/23/2023 1:0 3 [...] 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 from Last 3 Months or Most Recently Relevant to Health Maintenance Results * US Carotid Bilateral (11/04/2023 1:42 PM CDT) Anatomical Region Laterality Modality Head and Neck, Ultrasound RS T LOS, Ultrasound ARZ LOS, Neuroradiology FLA LOS, Procedural, Vascular Interventional NWWI LOS Bilateral Ultrasound Impressions 11/04/2023 2:30 PM CDT No hemodynamically significant carotid artery stenosis. Narrative 11/04/2023 2:30 PM CDT EXAM: US CAROTID BILATERAL Exam performed with color and spectral Doppler analysis. COMPARISON: None. FINDINGS: RIGHT: Mild atheromatous plaque in the carotid bifurcation. Doppler evaluation shows no evidence of significant ICA, ECA, or CCA stenosis. Normal flow direction in the vertebral artery. LEFT: Moderate atheromatous plaque in the carotid bifurcation. Doppler evaluation shows no evidence of significant ICA, ECA, or CCA stenosis. Normal flow direction in the vertebral artery. VELOCITIES (cm/sec) Right CCA *psv: ??65 cm/s Right ICA psv: 92 cm/s Right ICA edv: 26 cm/s Right ECA psv: 60 cm/s Right ICA/CCA: 1.4 Left CCA *psv: 53 cm/s Left ICA psv: 70 cm/s Left ICA edv: ??14 cm/s Left ECA psv: ??58 cm/s Left ICA/CCA: 1.3 *mid/distal (non-diseased) Measurement of a carotid stenosis, if present, is based on velocity parameters that compare the residual internal carotid luminal diameter with that of the normal distal ICA in accordance with [place] Symptomatic Carotid Endarterectomy Trial (NASCET). Procedure Note Lo Upton M.D. - 11/04/2023 EXAM: US CAROTID BILATERAL Exam performed with color and spectral Doppler analysis. COMPARISON: None. FINDINGS: RIGHT: Mild atheromatous plaque in the carotid bifurcation. Dopplerevaluation shows no evidence of significant ICA, ECA, or CCA stenosis.Normal flow direction in the vertebral artery. LEFT: Moderate atheromatous plaque in the carotid bifurcation. Dopplerevaluation shows no evidence of significant ICA, ECA, or CCA stenosis.Normal flow direction in the vertebral artery. VELOCITIES (cm/sec) Right CCA *psv: 65 cm/s Right ICA psv: 92 cm/s Right ICA edv: 26 cm/s Right ECA psv: 60 cm/s Right ICA/CCA: 1.4 Left CCA *psv: 53 cm/s Left ICA psv: 70 cm/s Left ICA edv: 14 cm/s Left ECA psv: 58 cm/s Left ICA/CCA: 1.3 *mid/distal (non-diseased) Measurement of a carotid stenosis, if present, is based on velocityparameters that compare the residual internal carotid luminal diameterwith that of the normal distal ICA in accordance with North AmericanSymptomatic Carotid Endarterectomy Trial (NASCET). IMPRESSION: No hemodynamically significant carotid artery stenosis. Venkata Mayen M.D. IMG US PROCEDURES * CARDIOPULMONARY (VO2) EXERCISE TEST (09/24/2023 10:07 AM CDT) 09/24/2023 8:50 AM CDT Narrative CV MERGE - 09/24/2023 11:13 AM CDT See PDF For Result Procedure Note Dom Kee M.D., Ph.D. - 09/24/2023 See PDF For Result Venkata Mayen M.D. CV STRESS PROCEDURES [facility] SUSHIL NA * (ABNORMAL) Lipid Panel (07/23/2023 1:03 [...] M.D. LAB BLOOD ADD-ON Performing Organization Address City/[facility]/ZIP Co de Phone Number [facility] [address] [place] [address], [facility] 200 [place] [address] * (ABNORMAL) Hemoglobin A1c (07/23/2023 1:03 PM [...] M.D. LAB BLOOD ADD-ON Performing Organization Address City/[facility]/ZIP Co de Phone Number [facility] [address] [place] [address], [facility] DTL [facility] [address] [place] [address] * Comprehensive Metabolic Panel (07/23/2023 1:03 PM CDT) [facility] Potassium, S 4.7 3.6 - 5.2 mmol/L [...] CDT Venkata Mayen M.D. LAB BLOOD ADD-ON [facility] [address] [place] [address], [place] DTL [facility] [address] [place] [address] from Last 3 Months or Most Recently Relevant to Health Maintenance Advance Directives For more information, please contact: [phone] Documents on File Type Date Recorded Patient Sustainability Engineer Expl anation Advance Directives 08/26/2012 12:00 AM [...] Answer Comments Full Code: Discussed Care Teams Screen Roller Relationship Specialty Start Date End Date Elsewhere, Pcp PCP - General Internal Medicine 12/12/21
--- OUTSIDE RECORDS SUMMARY | 2023-12-19 11:50 | XMS_ITS | Referral Summary ---
Author Organization [facility] Address [address] [place] [address] Care Team Providers Care Acoustical Engineer Name Role Phone Elsewhere, Pcp Primary Care Provider Unavailabl e Source Comments Patient records contain information from all sites at [facility]. For routine questions regarding patient records, call [phone] during business hours, M-F 8:00 AM - 5:00 PM Central Time. Record requests for emergency care only can be directed to [phone] at any time.[facility] Encounters Date Type Department Care Team Description 11/04/2023 1:12 PM CDT - 11/04/2023 11:59 PM CDT Hospital Encounter Department of Radiology, [facility], in [place], [place] [address] [place] [phone] Venkata Mayen M.D. Peripheral Vascular Disease (HCC); Bruit Carotid Artery Discharge Disposition: Home or Self Care 11/04/2023 10:00 AM CDT Comprehensive Visit Department of Cardiovascular Medicine in [place], [place] [address] [place] [phone] Harjinder Blackmon M.D. 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 Peripheral Vascular Disease (HCC) (Primary Dx); Bruit Carotid Artery 09/24/2023 11:00 AM CDT Office Visit Department of Cardiovascular Medicine in [place], [place] [address] [place] [address] Venkata Mayen M.D. 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; Regurgitation Mitral Discharge Disposition: Home or Self Care from Last 3 Months Allergies Active Allergy [...] tablet 3 12/28/2020 Active miscellaneous medical supply [facility] CPAP machine for home use at pressure [...] (11/19/2021): Added automatically from request for surgery [id number] Chronic Diastolic (Congestive) Heart Failure Overview (11/19/2021): Added automatically from request for surgery [id number] Pain Chest 11/19/2021 Overview (11/19/2021): Added automatically from request for surgery [id number] Atherosclerotic Heart Diseas e Of [place] Coronary Artery Without Angina Pectoris 11/14/2020 Coronary [...] In the past 12 months has e [employer], gas, oil, or water [employer] threatened to shut off services in your [...] often do you attend [facility] or confucianist services? More than 4 times per year 11/12/2021 Do you belong to any clubs o r organizations such as gnosticist groups, unions, fraternal [...] and heating? Not hard at all 11/12/2021 [facility] [place] of Occupat ional Health - Occupational Stress [...] Sex Assigned at Female 05/03/2021 9:58 AM CHURCH OFFICIAL Gender Identity Female 10/02/2020 7:16 PM CDT [...] 11/04/2023 10:00 AM CDT Plan of Treatment Not on file Medical Devices Implanted Type Area Supplier Quality Engineer Device Identifier Shelf Expiration Date Model / Serial / Lot Cardiac Stent Cardiac Stent Heart Description:5 cardiac stents Stnt Synergy Xd De 3.50x38 - [id number] Implanted:Qty : 1 on 11/14/2020 by Dontae Rubio M.D. at [facility] Cardiac Stent N/A: Coronary [employer] 06/08/2022 [id number] / / [id number] Description:Mid RCA Stnt Synergy Xd De 4.00x24 - [id number] Implanted:Qty : 1 on 11/14/2020 by Dontae Rubio M.D. at [facility] Cardiac Stent N/A: Coronary [employer] 09/19/2021 [id number] / / [id number] Description:Prox RCA Stnt Ronyx Kenji Rx 4x18 - [id number] Implanted:Qty : 1 on 11/22/2021 by Kishan Patricia M.D., Ph.D. at [facility] Cardiac Stent N/A: Coronary Med[employer] 06/27/2024 [id number] / / [id number] Description:Ost RCA Hardware E.G. Pins/Screws/R ods Hardware [...] normal distal ICA in accordance with [place] Symptomatic Carotid Endarterectomy Trial (NASCET). Procedure Note [...] No hemodynamically significant carotid artery stenosis. Venkata RODRIGUEZ US PROCEDURES * CARDIOPULMONARY (VO2) EXERCISE TEST (09/24/2023 10:07 AM CDT) 09/24/2023 8:50 AM CDT Narrative CV MERGE - 09/24/2023 11:13 AM CDT See PDF For Result Procedure Note Dom Kee M.D., Ph.D. - 09/24/2023 See PDF For Result Venkata Mayen M.D. CV STRESS PROCEDURES CV MERGE NA * (ABNORMAL) Lipid Panel (07/23/2023 1:03 [...] M.D. LAB BLOOD ADD-ON Performing Organization Address City/[facility]/ZIP Co de Phone Number [facility] [address] [place] [address], [facility] [address] [place] [address] * (ABNORMAL) Hemoglobin A1c (07/23/2023 1:03 PM [...] BLOOD ADD-ON Performing Organization Address [facility]/ZIP Co de Phone Number [facility] [address] [place] [address], [facility] [address] [address] * Comprehensive Metabolic Panel (07/23/2023 1:03 PM [...] Venkata Mayen M.D. LAB BLOOD ADD-ON [facility] [address] [place] [address], [facility] DTL [facility] [address] [place] [address] from Last 3 Months or Most Recently Relevant to Health Maintenance Advance Directives For more information, please contact: [phone] Documents on File Type Date Recorded Patient Educational Technologist Expl anation Advance Directives 08/26/2012 12:00 AM [...] Answer Comments Full Code: Discussed Care Teams Acoustical Engineer Relationship Specialty Start Date End Date Elsewhere, Pcp PCP - General Internal Medicine 12/12/21
--- OUTSIDE RECORDS SUMMARY | 2023-12-19 11:50 | XMS_ITS | Encounter Summary ---
Author Organization [facility] Address [address] [place] [id number] Care Team Providers Care Cloud Operations Engineer Name Role Phone Elsewhere, Pcp Primary Care Provider Unavailabl e Reason for Visit * Outpatient (Routine) - Closed Specialty Diagnoses / Procedures Referred By Contact Referred To Contact Cardiovascular Diseases / Cardiovascular Disease Diagnoses 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 Regurgitation Mitral Dyspnea On Exertion Venkata Mayen M.D. [address] [place] [phone] [facility] Referral ID Status Reason Start Date Expiration Date Visits Re quested Visits Authorized [id number] Closed 09/24/2023 03/25/2025 1 1 Encounter Details Date Type Department Care Team (Latest Contact Info) Description 11/04/2023 10:00 AM CDT Comprehensive Visit Department of Cardiovascular Medicine in [place], [place] [address] [place] [phone] Harjinder Blackmon M.D. [address] [place] [phone] Atherosclerotic Heart Disease Of [place] Coronary Artery Without Angina Pectoris (Primary Dx); Dyspnea On Exertion; 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; Regurgitation Mitral; Chronic Diastolic (Congestive) Heart Failure (HCC) Social History Tobacco Use Types Packs/Day Years Used Date Smoking Tobacco: Former Cigarettes 0 08/27/1965 - 04/01/1979 Passive Smoke Exposure: Past Smokeless Tobacco: Never Tobacco Cessation:Counseling Given: Not Answered Alcohol Use Standard Drinks/Week Comments Yes 10 (1 standard drink = 0.6 oz pu re alcohol) [facility] Utilities Answer Date Recorded In the past 12 months has th e [employer], gas, oil, or water company threatened to [...] How often do you attend chur or catholic services? More than 4 times per year 11/12/2021 Do you belong to any clubs o r organizations such as uatsdin groups, unions, fraternal [...] and heating? Not hard at all 11/12/2021 [facility] [place] [facility] - Occupational Stress [...] your living situation today? I have a [facility] place to live 07/17/2023 Education Answer Date Recorded What is the highest level of school you have completed or the highest degree you have received? 12th grade 10/02/2020 Sex and Gender Information Value Date Recorded Sex Assigned at Female 05/03/2021 9:58 AM [employer] Gender Identity Female 10/02/2020 7:16 PM CDT Sexual Orientation Straight 10/08/2020 6: 58 AM CDT documented as of this encounter Last Filed Vital Signs Vital Sign Reading Time Taken Comments Blood Pressure 117/62 11/04/2023 10:00 AM CDT Pulse 82 11/04/2023 10:00 AM CDT Temperature - - Respiratory Rate - - Oxygen Saturation - - Inhaled Oxygen Concentration - - Weight 100 kg (220 lb 10.9 oz) 11/04/2023 10:00 AM CDT Height 157.2 cm (5' 1.89) 11/04/2023 10:00 AM C DT Body Mass Index 40.51 11/04/2023 10:00 AM CDT documented in this encounter Consult Notes * Harjinder Blackmon M.D. - 11/04/2023 10:00 AM CDT SUBJECTIVE Referring Provider: Venkata Mayen M.D. HISTORY OF PRESENT ILLNESS Ms. Ivonne Collins is a 73 y.o. female who is referred to [facility] for mitral valve disease. She has a history of lipoprotein(a) elevation. This is resulted in significant coronary artery disease for which he has been treated with multiple stents. Her most recent stenting was in October 2021 when she had laser atherectomy and lithotripsy to an in-stent restenosis of the ostial right coronary artery. She has also been identified as having mitral annulus calcification causing axso-ov-elaxczjt stenosis and moderate to severe mitral valve regurgitation. At the time of her cardiac catheterization in 2021, she had mild elevation of pulmonary artery wedge pressure at baseline (had just had flash pulmonary edema a couple of weeks before this). Pulmonary capillary wedge pressure fell dramatically with the use of sublingual nitroglycerin. Assessment of left ventricular end-diastolic pressure after nitroglycerin was within normal range, but we do not have it prior to administration of nitroglycerin. She recently has had increasing shortness of breath with activity. Some of this has accompanied a lack of physical activity. She has significant right knee discomfort which limits her ambulation. In the past she was using an exercise bicycle. She and her note that she had significant improvement in shortness of breath when she was using the exercise bicycle regularly. She had stopped due to wintering in [place], working schedule, and other issues. She restarted using the bicycle about twoweeks ago. She exercises for about 20 minutes at a time. Her feels that she has shown some improvement even in the short that time. She is hard pressed to tell me how far she can walk before developing shortness of breath as her knee pain often limits her. She reports no significant shortness of breath at rest. She does have sporadic chest discomfort. This happens spontaneously and is not provoked by activity. She is known to have some peripheral arterial disease. She notes that occasionally her legs will cramp when she walks. This however is not the major limitation to walking. She has no known history ofatrial fibrillation. As noted she does have history of elevated lipoprotein(a). She also has impaired fasting glucose. She is overweight. She has a obstructive sleep apnea and uses CPAP. She has a history of right breast cancer which she had lumpectomy and radiation therapy. MEDICATIONS Current Medications: albuterol 90 mcg/actuation inhaler, Inhale 2 puffs every 4 (four) hours as needed. aspirin 81 mg chewable tablet, Chew 1 tablet (81 mg total) daily. calcium carbonate (CALCIUM 500 ORAL), Take 2 tablets by mouth daily. cholecalciferol (VITAMIN D3) 2,000 Unit capsule, Take 2,000 Units by mouth daily. cyanocobalamin, vitamin B-12, (VITAMIN B-12 ORAL), Take 1 tablet by mouth daily. empagliflozin (JARDIANCE) 10 mg tablet, Take 1 tablet (10 mg total) by mouth every morning before breakfast. ezetimibe (ZETIA) 10 mg tablet, Take 10 mg by mouth at bedtime. furosemide (LASIX) 40 mg tablet, Take 1 tablet (40 mg total) by mouth daily. miscellaneous medical supply [facility], CPAP machine for home use at pressure 5-16 cmw, nasal mask x1/3month with nasal pillows x 2/mo nitroglycerin (NITROSTAT) 0.4 mg SL tablet, Place 0.4 mg under the tongue as needed for chest pain. ramipriL (ALTACE) 5 mg capsule, Take 2 capsules (10 mg total) by mouth daily. rosuvastatin (CRESTOR) 40 mg tablet, Take 1 tablet by mouth at bedtime. sertraline (ZOLOFT) 100 mg tablet, Take 1 tablet by mouth at bedtime. spironolactone (ALDACTONE) 25 mg tablet, 1 tablet Orally verapamiL (CALAN-SR) 240 mg ER tablet, Take 1 tablet (240 mg total) by mouth at bedtime. fluticasone propionate (FLONASE) 50 mcg/actuation nasal spray, 1 spray in each nostril Nasally Twice a day for 30 days SUBSTANCE USE: Social History Tobacco Use Smoking status: Former Current packs/day: 0.00 Types: Cigarettes Start date: 08/27/1965 Quit date: 04/01/1979 Years since quittin.6 Passive exposure: Past Smokeless tobacco: Never Vaping Use Vaping status: never used Substance Use Topics Alcohol use: Yes Alcohol/week: 10.0 standard drinks of alcohol Types: 7 Glasses of wine, 3 Cans of beer per week Drug use: Never REVIEW OF SYSTEMS Pertinent abnormalities are included in the History of Present Illness. PAST MEDICAL, SURGICAL, SOCIAL, AND FAMILY HISTORY The following portions of the patient's history were reviewed and updated as appropriate: allergies, current medications, family history, medical history, social history, surgical history and problemlist. OBJECTIVE BP 117/62 Pulse 82 Ht 157.2 cm Wt 100 kg BMI 40.51 kg/m?? PHYSICAL EXAMINATION General: Overweight. Well groomed. Psychiatric: Normal mood and affect. Oriented to person, place, and time. Eyes: No periorbital xanthelasma. Clear sclerae. Heart: First heart sound normal. Second heart sound normal. There is a grade 2/6 mitral regurgitation murmur. Jugular venous pressure appeared normal. Lungs: Clear to auscultation. Good air movement bilaterally. Abdomen: No hepatic enlargement. No masses or tenderness. Musculoskeletal: No clubbing or cyanosis of the digits. Extremities: Trace edema bilaterally. Skin: No stasis dermatitis or ulceration of the lower extremities. DIAGNOSTICS I have reviewed the patient's current laboratory, imaging, and other diagnostic studies. Pertinent laboratory and imaging studies are notable for: On July 22 to 12 lead electrocardiogram demonstrated sinus rhythm without abnormality. Her most recent echocardiogram demonstrated severe mitral annulus calcification with some calcification of the leaflets and chordae. The mean diastolic gradient was 7 mmHg at a heart rate of 90 beatsper minute. There was moderate to severe mitral valve regurgitation with a regurgitant volume calculated to be 51 mL by echocardiography. The left ventricle is mildly enlarged. Left ventricular ejecti on fraction was 67%. Right ventricular systolic pressure was 41 mmHg which is unchanged since 2020.She has mild tricuspid valve regurgitation. Bicycle cardiopulmonary exercise test shows peak VO2 of 89% and a functional aerobic capacity of 77%. This has changed significantly compared to April 2021. She did not have clear evidence of cardiac or pulmonary limitation to exercise. ASSESSMENT / PLAN #1 Multifactorial dyspnea on exertion #2 Mitral annulus calcification with ubun-lh-louqzlxd stenosis and moderate to severe regurgitation #3 Possible heart failure with preserved ejection fraction #4 Coronary artery disease #5 Overweight We discussed the almost certain multifactorial nature of her shortness of breath with activity. It is hard to sort out which abnormality is most likely to be contributing to the majority of her shortness of breath. Based on her history of significant improvement with exercise, I suspect that deconditioning may be the primary cause for her dyspnea. This would be concordant with her cardiopulmonaryexercise test. Her feels that even some exercise over the last two weeks has provided some benefit. With this in mind, it is hard to know how much her mitral valve disease is contributing andtherefore how much improvement in symptoms she could expect from mitral valve replacement. We discussed the current status of mitral valve repair/replacement in the setting of dense mitral annulus calcification. I do not see her as a good candidate for open mitral valve replacement. We discussed the current status of percutaneous mitral valve replacement and some of the challenges involved with replacing the mitral valve percutaneously. After that discussion we have agreed that she should continue with an exercise program over the next month or so. If she continues to note progress with the dyspnea improving, it would be appropriateto continue observation with a follow- up echocardiogram next summer. Note that she spends her winter in [place] from about January 22 to June 22. If over the next month she has not noticed any improvement, we could proceed with further evaluation to try to better define whether her valve is contributing significantly to her symptoms. This would involve repeat coronary angiography and right and left heart catheterization to try to determine whether coronary artery disease, diastolic dysfunction, or her mixed mitral valve disease is likely to be clinically significant. She had her arecomfortable with this plan. documented in this encounter Plan of Treatment Not on file documented as of this encounter Visit Diagnoses Diagnosis Atherosclerotic Heart Disease Of [place] Coronary Artery Without Angina Pectoris- Primary Dyspnea On Exertion 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 Regurgitation Mitral Chronic Diastolic (Congestive) Heart Failure (HCC) documented in this encounter Additional Health Concerns Assessment Noted Time PHQ-9 Depression Total Score: 6 08/21/19 13 4:08 PM CDT documented as of this encounter Care Teams Cloud Operations Engineer Relationship Specialty Start Date End Date Elsewhere, Pcp PCP - General Internal Medicine 12/12/21 documented as of this encounter
--- OUTSIDE RECORDS SUMMARY | 2023-12-19 11:50 | XMS_ITS | Encounter Summary ---
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 [address] [place] [phone] [facility] Referral ID Status Reason Start Date Expiration Date Visits Re quested Visits Authorized [id number] Closed 09/24/2023 03/25/2025 1 1 Reason for Visit * Outpatient (Routine) - Closed Specialty Diagnoses / Procedures Referred By Contuche t Referred To Contact Cardiovascular Disease Venkata Mayen M.D. [address] [place] [phone] [facility] Referral ID Status Reason Start Date Expiration Date Visits Re quested Visits Authorized [id number] Closed 08/01/2023 01/30/2025 1 1 Encounter Details Date Type Department Care Team (Latest Contact Info) Description 09/24/2023 11:00 AM CDT Office Visit Department of Cardiovascular Medicine in [place], [place] 200 [place] [address] Venkata Mayen M.D. 200 [place] [address] 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 (Primary Dx); Regurgitation Mitral; Dyspnea On Exertion Social History Tobacco Use Types Packs/Day Years Used Date Smoking Tobacco: Former Cigarettes 0 08/27/1965 - 04/01/1979 Passive Smoke Exposure: Past Smokeless Tobacco: Never Alcohol Use Standard Drinks/Week Comments Yes 10 (1 standard drink = 0.6 oz pu re alcohol) [facility] Utilities Answer Date Recorded In the past 12 months has e [place], gas, oil, or water [employer] threatened to shut off services in your [...] often do you attend chur ch or synagogue services? More than 4 times per year 11/12/2021 Do you belong to any clubs o r organizations such as confucianism groups, unions, fraternal or athletic groups, or [...] and heating? 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 - 09/24/2023 11:00 AM CDT SUBJECTIVE HISTORY OF PRESENT ILLNESS Ivonne Collins is a 73 y.o. female who returns to [facility] Cardiovascular Medicine with our lastvisit occurring on 23 Jul 2023; see note for details. Recall that she was seen on 23 November 2021 after hospitalization due to unstable angina with pulmonary edema; coronary angiogram on 21 November 2021 demonstrated critical coronary stent restenosis involving the ostial right coronary artery and right heart catheterization was notable for borderline e levation in PAWP, normal pulmonary artery pressures, and mildly reduced cardiac output with restingtransmitral gradient 4 mm Hg (see below for details) followed by right coronary artery revascularization on 22 November 2021 including laser atherectomy, intravascular lithotripsy, angioplasty, and a4 x 18 mm drug-eluting stent. Prior diagnostic coronary angiogram with left and right heart catheter ization had been completed on 21 November 2021 which identified the critical ostial right coronary artery stenosis in addition to borderline elevated PAWP, normal pulmonary artery pressures, low right atrial pressure, low normal LVEDP, mildly reduced cardiac output, and grade 3 mitral regurgitation with transmitral gradient 4 mm Hg. She has not experienced recurrent acute dyspneic symptoms nor chest discomfort similar to the symptoms she noted prior to identification of the ostial right coronary artery stenosis. Her exertional dyspnea has modestly progressed over the past 12 to 18 months and she estimates walking at least one block or for 5 to 10 minutes before stopping due to dyspnea. She denies new or changing exertional dyspnea since our last visit. No dyspnea at rest, orthopnea, or paroxysmal nocturnal dyspnea. Fluctuating lower extremity edema but overall no marked change in this regard. Her weight has increased <1 kg compared to recent measurements. As noted previously, she believes her weight had decreased toa edwardo of 205 lb in March 2022 with a subsequent gradual increase but plateaued over the past several months. No palpitations. Occasional lightheadedness which is noted most often after her morning medications. She completed cardiac rehabilitation at [facility] in 2021; however, she has unfortunately been [...] surgical history and problem list. OBJECTIVE BP 112/71 (BP Location: Left arm, Patient Position: Sitting, Cuff Size: Large) Comment: average of 3 Pulse 79 Comment: average of 3 Weight obtained post visit 98.3 kg (dressed with shoes on). PHYSICAL EXAMINATION General: Increased body habitus. Well groomed. No distress. Psychiatric: Normal mood and affect. Alert and oriented. Head: Normocephalic, atraumatic. Eyes: No xanthelasma or conjunctivitis. Neck: Jugular venous pressure estimated at 8 cm water. Carotid upstroke is preserved. Query carotidbruit. No subclavian bruit. Heart: Apical impulse is [...] current laboratory, imaging, and other diagnostic studies. Cardiopulmonary exercise (semi-recumbent cycle) study performed today with exercise time 8.4 minutes (77% predicted) with normal heart rate and blood pressure response to exercise + normal heart raterecovery and near maximal cardiometabolic effort. Peak VO2 was 14 which had 89% predicted is below a verage. Normal oxygen pulse rise without clear evidence of cardiac or pulmonary impairment to exercise. Reasons for low peak VO2 likely include excess weight and deconditioning. Stress electrocardiogram was negative for ischemia and no complex arrhythmias reported. Findings discussed with one of myexgogamingoise PhD colleagues and compared to the April 2021 study the exercise performance is similarwhen accounting for differences in exercise protocols. Laboratory studies from July 2023 with normal hemoglobin, white blood cell count and platelet count.Normal sodium at 141 and potassium at 4.7 mmol/L. BUN 21 and creatinine 0.94 mg/dL. Glucose 114 mg/dL with hemoglobin A1c 5.8%. Normal TSH. N terminal proBNP 272 pg/mL. Total cholesterol 140, HDL 47,LDL 75, and triglycerides 98 mg/dL. Electrocardiogram from July 2023 with normal sinus rhythm and nomarked ST segment or T-wave abnormalities. Normal FL interval, QRS duration and QTc. Echocardiogramfrom July 2023 with mild left ventricular enlargement, normal wall motion, and calculated LV ejection fraction 67%. Severely calcified mitral annulus with calcification of the leaflets and chordae. Diastolic mean gradient 7 mm Hg at heart rate 94 beats per minute. Moderate-severe mitral valve regurgitation with regurgitant volume 51 ml. Estimated right ventricular systolic pressure 41 mm Hg. Normal inferior vena cava size with normal inspiratory collapse. Compared to November 2022 no significant change. Prior cardiac-related testing with CT angiogram 20 [...] collaterals from the distal LAD and septal primary education professor. No significant obstructive disease in the left coronary system. Coronary artery revascularization of the right coronary artery was completed on 22 November 2021 utilizing laser atherectomy, intravascular lithotripsy, angioplasty, and a 4 x 18 mm drug-eluting stent. ASSESSMENT / PLAN #1 Multivessel coronary artery disease status post multivessel percutaneous coronary artery revascularization #1a Right coronary artery rotational atherectomy + stent revascularization (October 2020) #1b RCA laser atherectomy, intravascular lithotripsy, + stent revascularization for ostial stent restenosis (November 2021) Continue aggressive cardiovascular risk factor modification. She completed 12 months of dual anti-platelet therapy and transitioned to aspirin 81 mg daily. [...] valvular stenosis #2b Moderate-severe mitral valve regurgitation We have continued non-interventional management with pharmacotherapy aimed at heart rate, blood pressure, and volume control. We have previously discussed that if she were to develop progressive mitral stenosis/regurgitation or recurrent symptoms unrelated to obstructive coronary artery disease with adequate hemodynamic and volume management, then proceed with CV surgery + interventional cardiology consultations to discuss surgical MVR or transcatheter MVR. Much of our conversation today focused on her progressive and subtle changing symptoms over the past 12 to 18 months and whether now is the time to pursue a interventional approach to her mixed mitral valve disease. I anticipate that shehas not a good surgical MVR candidate due to the extent of mitral annular calcification and most likely we would be considering a transcatheter MVR approach. Fortunately her exercise capacity and objective measurements based on the cardiopulmonary study today are similar to April 2021. I suspectthat with mitral valve intervention the degree of mitral regurgitation as well as the hemodynamic impact of mitral inflow obstruction will be substantially mitigated and she will most likely experienced improvement in exertional dyspnea symptoms; however, complete resolution of symptoms is unlikelydue to the presumed contributors of chronic ischemic heart disease, heart failure with preserved ejection fraction, and non cardiovascular issues (excess weight and deconditioning). I would like to obtain an opinion from one my non- interventional VHD colleagues and a consultation was arranged with Dr. Blackmon on 04 November 2023. Pending his review we can then decide on the possibility of pursuing a interventional approach in a more expedited fashion. 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 The furosemide dose has been stable and she ismaintained on both a SGLT-2i and spironolactone. If she notices a increase in weight or more cardiopulmonary symptoms then I have asked her to contact me at which point the furosemide will be increased. #5 Hyperlipidemia with elevated lipoprotein (a) Continue [...] arterial studies if concern for symptomatic disease. Carotid ultrasound will be obtained. #9 Obstructive sleep apnea, treated with CPAP #10 Status post right breast lumpectomy and radiation for infiltrating ductal carcinoma Discussed with the patient and I believe all questions were answered. 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
--- OUTSIDE RECORDS SUMMARY | 2023-12-19 11:50 | XMS_ITS | Encounter Summary ---
Author Organization [facility] Address [address] [place] [phone] Care Team Providers Care Heavy Equipment Service Technician Name Role Phone Elsewhere, Pcp Primary Care Provider Unavailabl e Reason for Referral * Outpatient (Routine) - Closed Specialty Diagnoses / Procedures Referred By Contac t Referred To Contact Diagnoses Peripheral Vascular Disease (HCC) Bruit Carotid Artery Procedures US Carotid Bilateral Venkata Mayen M.D. [address] [place] [phone] [facility] Referral ID Status Reason Start Date Expiration Date Visits Re quested Visits Authorized [id number] Closed 09/24/2023 09/23/2024 1 1 Encounter Details Date Type Department Care Team (Late st Contact Info) Description 09/24/2023 Orders Only Department of Cardiovascular Medicine in [place], [place] [address] [place] [phone] Venkata Mayen M.D. [address] [place] [phone] Peripheral Vascular Disease (HCC) (Primary Dx); Bruit Carotid Artery Social History Tobacco Use Types Packs/Day Years Used Date Smoking Tobacco: Former Cigarettes 0 08/27/1965 - 04/01/1979 Passive Smoke Exposure: Past Smokeless Tobacco: Never Alcohol Use Standard Drinks/Week Comments Yes 10 (1 standard drink = 0.6 oz pu re alcohol) [facility] Utilities Answer Date Recorded In the [...] How often do you attend chur or christianity services? More than 4 times per year 11/12/2021 Do you belong to any clubs o r organizations such as episcopalian groups, unions, fraternal or athletic groups, or [...] and heating? Not hard at all 11/12/2021 [facility] of Occupat ional Health - Occupational Stress [...] your living situation today? [facility] 07/17/2023 Education Answer Date Recorded What is the highest level of school you have completed or the highest degree you have received? 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 Procedure Note [...] carotid artery stenosis. Venkata RODRIGUEZ US PROCEDURES documented in this encounter Visit Diagnoses Diagnosis Peripheral Vascular Disease (HCC)- Primary Bruit Carotid Artery Peripheral Vascular Disease (HCC) Bruit Carotid Artery documented in this encounter Additional Health Concerns Assessment Noted Time PHQ-9 Depression Total Score: 6 08/21/19 13 4:08 PM CDT documented as of this encounter Care Teams Heavy Equipment Service Technician Relationship Specialty Start Date End Date Elsewhere, Pcp PCP - General Internal Medicine 12/12/21 documented as of this encounter
--- OUTSIDE RECORDS SUMMARY | 2023-12-19 11:50 | XMS_ITS | Clinical Summary ---
Author Organization [facility] Address [place], [place] [address] Care Team Providers Care Clinical Rn Name Role Phone Lorin Parson MD Primary [...] of Communication with Friends and Fami ly Not on file 11/23/2023 Financial Resource Strain Answer Date R ecorded [...] same day) for age 18+ 10/23/2021 10/23/2020 Depression screening for age 12+ 12/07/2022 12/07/2021, 12/05/2021, 12/04/2021, Additional history exists RSV vaccine for adults or (1 - 1-dose 75+ series) 01/05/2023 COVID-19 vaccine series ( season) 2023 01/11/2022, 08/22/2021, 12/20/2020 Influenza for age 65+ 11/23/2023 Advance Directives Documents on File Type Date Recorded 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
--- OUTSIDE RECORDS SUMMARY | 2023-12-19 11:50 | XMS_ITS | Encounter Summary ---
Author Organization [facility] Address [address] [place] [address] Care Team Providers Care Clerical Stock Inspector Name Role Phone Elsewhere, Pcp Primary Care Provider Unavailabl e Reason for Referral * Outpatient (Routine) - Closed Specialty Diagnoses / Procedures Referred By Contac t Referred To Contact Diagnoses Peripheral Vascular Disease (HCC) Bruit Carotid Artery Procedures US Carotid Bilateral Venkata Mayen M.D. [address] [place] [phone] [facility] Referral ID Status Reason Start Date Expiration Date Visits Re quested Visits Authorized [id number] Closed 09/24/2023 09/23/2024 1 1 Reason for Visit * Outpatient (Routine) - Closed Specialty Diagnoses / Procedures Referred By Contuche hernandez Referred To Contact Diagnoses Peripheral Vascular Disease (HCC) Bruit Carotid Artery Procedures US Carotid Bilateral Venkata Mayen M.D. [address] [place] [phone] [facility] Referral ID Status Reason Start Date Expiration Date Visits Re quested Visits Authorized [id number] Closed 09/24/2023 09/23/2024 1 1 Encounter Details Date Type Department Care Team (Latest Contact Info) Description 11/04/2023 1:12 PM CDT - 11/04/2023 11:59 PM CDT Hospital Encounter Department of Radiology, [facility], in [place], [place] 200 [place] [phone] Venkata Mayen M.D. 200 [place] [address] Peripheral Vascular Disease (HCC); Bruit Carotid Artery Discharge Disposition: Home or Self Care Social History Tobacco Use Types Packs/Day Years Used Date Smoking Tobacco: Former Cigarettes 0 08/27/1965 - 04/01/1979 Passive Smoke Exposure: Past Smokeless Tobacco: Never Alcohol Use Standard Drinks/Week Comments Yes 10 (1 standard drink = 0.6 oz pu re alcohol) [facility] Utilities Answer Date Recorded In the past 12 months has [facility] [employer] gas, oil, or water [employer] threatened to shut off services in your [...] 11/12/2021 How often do you attend [facility] or anglican services? More than 4 times per year [...] and heating? 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 Procedure Note [...] IMPRESSION: No hemodynamically significant carotid artery stenosis. Authorizing Provider Result Kike RODRIGUEZ US PROCEDURES documented in this encounter Visit Diagnoses Diagnosis Peripheral Vascular Disease (HCC) Bruit Carotid Artery documented in this encounter Additional Health Concerns Assessment Noted Time PHQ-9 Depression Total Score: 6 08/21/19 13 4:08 PM CDT documented as of this encounter Care Teams Clerical Stock Inspector Relationship Specialty Start Date End Date Elsewhere, Pcp PCP - General Internal Medicine 12/12/21 documented as of this encounter
== END 2023-12-19 07:35 | disposition home or self-care (01) ==
LOC: NFLDREF 11:48
PROVIDERS: PCP Family Medicine; Referring Provider Family Medicine; Visit Provider Family Medicine
DX: I10 Essential (primary) hypertension (principal); R73.03 Prediabetes
CPT/HCPCS: 80053

== ENCOUNTER 2024-09-07 09:07 | Outpatient (CLI) | payer MEDICARE, BC, SELFPAY | END 2024-09-07 09:08 | disposition home or self-care (01) | LOC: NFLDREF 09-10 09:51 | PROVIDERS: PCP Family Medicine; Referring Provider Family Medicine; Visit Provider Family Medicine | DX: E78.41 Elevated Lipoprotein(a) (principal); E55.9 Vitamin D deficiency, unspecified; I10 Essential (primary) hypertension; R73.03 Prediabetes; E78.5 Hyperlipidemia, unspecified; E66.9 Obesity, unspecified; M81.0 Age-related osteoporosis without current pathological fracture | CPT/HCPCS: 80053; 80061; 82306 ==

== ENCOUNTER 2025-01-11 07:57 | Outpatient (CLI) | payer MEDICARE, BC, SELFPAY ==
--- NOTE | 2025-01-11 08:15 | CRLHL7_ITS ---
For Patients: As a result of the Century Cures Act, medical imaging exams and procedure reports are released immediately into your electronic medical record. You may view this report before your referring provider. If you have questions, please contact your health care provider. INDICATION: BILATERAL SCREENING MAMMOGRAM, ASYMPTOMATIC 75 Y/O FEMALE COMPARISON: 12/09/2022, 12/07/2021, 11/08/2020 TECHNIQUE: Digital mammogram in CC and MLO projections including computer-aided detection (CAD) and tomosynthesis. BREAST COMPOSITION: There are scattered areas of fibroglandular density. FINDINGS: No suspicious findings. ASSESSMENT: BI-RADS 2 Benign RECOMMENDATION: Annual screening mammogram. A lay language report of this examination will be provided to the patient. Dictated by: Harjinder Crane MD @ 01/11/2025 10:01:43 (Electronically Signed)
== END 2025-01-11 07:58 | disposition home or self-care (01) ==
LOC: MAMMO 07:58
PROVIDERS: PCP Family Medicine; Visit Provider Family Medicine
DX: Z12.31 Encounter for screening mammogram for malignant neoplasm of breast (principal)
CPT/HCPCS: 77063; 77067